=== PATIENT | female | born 1950 | race Caucasian/White ===

== ENCOUNTER 2017-11-24 01:35 | Emergency (ER) | payer MEDICARE, OTHER, SELFPAY ==
[2017-11-24 01:36] VITALS: BP 208/95; PULSE 85; RESP 16; TEMP 36.5; O2SAT 99; BMI 30.5
--- NOTE | 2017-11-24 01:45 | RAD_ITS ---
STUDY: X-RAY CHEST REASON FOR EXAM: Female, 67 years old. Cough. TECHNIQUE: PA and lateral views of the chest. COMPARISON: Prior comparison studies are not available for review at this time. FINDINGS: The lungs are clear and expanded. There is no demonstrated pleural abnormality. Normal size heart. Normal mediastinum and ronni. Normal visualized pulmonary arteries. There is mild atherosclerotic tortuosity of the aortic arch and descending thoracic aorta. There are mild degenerative changes of the visualized thoracic spine. There is questionable small calcification lateral to the left humeral head which may reflect mild calcific tendinitis. There is no demonstrated abnormality of the visualized soft tissue structures of the upper abdomen. RAD/Chest PA and Lateral IMPRESSION: No active pulmonary disease. Electronically Signed: Ivan Clarke MD at 2:05 EDT Tel , Service support ,
[2017-11-24 02:13] VITALS: O2SAT 99
--- NOTE | 2017-11-24 02:22 | DCINST.ED_ITS ---
ED Disposition - Plan for ED Patient: Chief Complaint: Cold Sx Instructions: ED Upper Resp Infec No Abx Tx Referrals: Bassam Johnson DO [Primary Care Provider] -
[2017-11-24 02:23] VITALS: BP 202/80; PULSE 65; RESP 16; O2SAT 97
--- NOTE | 2017-11-24 02:24 | ED.VISSUMM ---
- ER Visit Summary Date of Service: 11/24/17 Chief Complaint: Cough History of Present Illness: The patient is a 67 F presenting with cough. She states this has been ongoing for the past week. She has a nonproductive cough. She denies chest pain or shortness of breath. Denies fever. She states she has had similar symptoms in the past with bronchitis. She also has seasonal allergies. She is not a smoker. She denies other complaints. Physical Examination: Vitals are stable. Patient is afebrile. Alert no acute distress. HEENT exam is unremarkable. Pharynx normal, uvula midline Neck is supple. Lungs are clear and equal bilaterally. Heart is regular rate and rhythm. Abdomen is soft nontender nondistended. Extremities are unremarkable. No edema Skin is warm and dry. No focal neurologic deficit. Remainder of exam is unremarkable. Emergency Department Course and Treatment: Chest x-ray shows no acute process. Ambulatory pulse ox is 99% on room air. Patient declined cough medicine as she states her cough drops are helping. She is advised to follow-up with her primary care physician. Advised return to ED for any worsening complaints. Disposition: Discharge home Impression: Bronchitis This note was generated with [employer] dictation software. It may contain incorrect words, spelling, and punctuation that were not noted in review of the chart prior to signing ED Disposition - Plan for ED Patient: Chief Complaint: Cold Sx Instructions: ED Upper Resp Infec No Abx Tx Referrals: Bassam Johnson DO [Primary Care Provider] -
== END 2017-11-24 02:28 | disposition home or self-care (01) ==
PROVIDERS: Emergency Provider Emergency Medicine; Family Provider Family Medicine; PCP Family Medicine
DX: J40 Bronchitis, not specified as acute or chronic (principal); I10 Essential (primary) hypertension
CPT/HCPCS: 71046; 99282

== ENCOUNTER 2018-01-16 21:31 | Emergency (ER) | payer MEDICARE, OTHER, SELFPAY ==
[2018-01-16 21:32] VITALS: BP 171/93; PULSE 92; RESP 16; TEMP 36.6; O2SAT 95; BMI 29.1
[2018-01-16 22:22] LABS: Erythrocyte Sedimentation Rate 22 mm/hr (0-30)
--- NOTE | 2018-01-16 22:51 | ED.DCSUM_ITS ---
- ER Visit Summary Date of Service: 01/16/18 Chief Complaint: Left periorbital tightness and discomfort described as sharp. History of Present Illness: The patient is a 67 F who presents with sharp tight sensation lateral left orbit left temporal region left forehead into the hairline started several hours prior to presentation. She denies any double vision, blurred vision or loss of vision. There is no history of glaucoma. She denies history of diabetes. There is no history of trauma. She denies trouble with speech or swallowing. She denies any paresthesia, anesthesia motor weakness in the upper lower extremities. She denies problems with walking or balance. Physical Examination: Vital signs are marked for slight elevation blood pressure 171/93. She appears anxious. Pupils equal round reactive paradoxic muscle intact. Sclerae anicteric. Conjunctive is not injected. There is no pain with eye movement. Funduscopic exam reveals normal cup-to-disc ratio no papilledema. There is no evidence of a preseptal cellulitis. There is no skin lesions to suggest herpes varicella-zoster. Nares patent no discharge. There is no true tenderness over the temporal artery she complains of vague discomfort when I palpate the area. Neck is supple. Patient is alert and oriented ?3. Motor is 5 over 5. Sensory is intact. DTRs are symmetric with no clonus or Babinski sign. Cranial 2 through 12 are intact. Cerebellar testing is normal. Test Results: ESR is 22, which is normal Emergency Department Course and Treatment: Since patient complains of vague discomfort and reports discomfort in the left sikh area will obtain a's ESR. Visual acuity was assessed and is 20/25 right 2030 left and 20/20 both. Treatment Plan: Since sed rate is normal visual acuity is unremarkable will discharge to home follow-up with her primary care physician Disposition: Discharged to home Impression: Left-sided facial pain unknown etiology This note was generated with [employer] dictation software. It may contain incorrect words, spelling, and punctuation that were not noted in review of the chart prior to signing ED Disposition - Plan for ED Patient: Disposition: Home or Assisted Living Chief Complaint: Other, Pain/Inj Instructions: ED Acute Pain [facility] Referrals: Bassam Johnson DO [Primary Care Provider] - 3-5 Days if not improving Additional Instructions: If there is any change in your vision, return to the emergency department immediately.
[2018-01-16 23:08] VITALS: BP 131/76; PULSE 83; RESP 20; O2SAT 98
--- NOTE | 2018-01-16 23:09 | ED.RN ---
THIS NURSE REVIEWED D/C INSTRUCTIONS WITH PT. PT VERBALIZED UNDERSTANDING OF INSTRUCTIONS. PT DENIES FURTHER NEEDS OR QUESTIONS AT THIS TIME. PT AMBULATES FROM ROOM ON OWN WITHOUT ASSISTANCE FROM STAFF
== END 2018-01-16 23:10 | disposition home or self-care (01) ==
PROVIDERS: Emergency Provider Emergency Medicine; Family Provider Family Medicine; PCP Family Medicine
DX: R51 Headache (principal)
CPT/HCPCS: 85652; 99283

== ENCOUNTER → 2019-04-29 | Outpatient (CLI) | payer MEDICARE, OTHER, SELFPAY ==
--- NOTE | 2019-04-29 13:31 | US_ITS ---
STUDY: RENAL ULTRASOUND - COMPLETE REASON FOR EXAM: Female, 68 years old. Pelvic pain. TECHNIQUE: Ultrasound evaluation of the kidneys was performed with real-time and static benavidez-scale imaging. COMPARISON: None. FINDINGS: RIGHT KIDNEY: Normal location of the right kidney, which is normal in size. The right kidney measures 10.9 x 4.1 x 5.3 cm. There is a normal cortex of the right kidney. The renal cortex measures 1.8 cm. There is no right renal mass or cyst. There are no right renal calculi. There is minor pelvocaliectasis that did not change after voiding. DISTAL RIGHT URETER: There is non-visualization of the distal right ureter. There is no demonstrated right ureterovesical junction calculus. There is a visualized right ureteral jet. LEFT KIDNEY: Normal location of the left kidney, which is normal in size. The left kidney measures 9.9 x 4.0 x 4.8 cm. There is a normal cortex of the left kidney. The renal cortex measures 1.4 cm. There is a 2 x 2.5 x 2.1 cm cortical cyst at the posterior lower pole. There are no left renal calculi. There is no left hydronephrosis. DISTAL LEFT URETER: There is non-visualization of the distal left ureter. There is no demonstrated left ureterovesical junction calculus. There is a visualized left ureteral jet. BLADDER: The distended urinary bladder has a volume of 157 ml. The empty urinary bladder has a volume of 8.3 ml. There is a normal 20 mm wall thickness of the distended urinary bladder. There is no demonstrated mass within the urinary bladder. There are no demonstrated bladder calculi. US/Kidney and Bladder IMPRESSION: 1. Minor right pelvocaliectasis. This did not change after voiding, but the possible source and level of low-grade partial obstruction is not demonstrated by this study. 2. 2.5 cm cortical cyst at the posterior lower pole of the left kidney. No left hydronephrosis. 3. Unremarkable urinary bladder. Electronically Signed: Nato Reynolds MD at 20:52 EDT , Service support ,
== END | disposition home or self-care (01) ==
LOC: US 13:30
PROVIDERS: Family Provider Family Medicine; PCP Family Medicine; Referring Provider Urology; Visit Provider Urology
DX: R10.2 Pelvic and perineal pain (principal)
CPT/HCPCS: 76770

== ENCOUNTER → 2019-05-15 13:10 | Outpatient (CLI) | payer MEDICARE, OTHER, SELFPAY ==
--- NOTE | 2019-05-15 13:14 | CT_ITS ---
STUDY: CT ABDOMEN AND PELVIS WITH AND WITHOUT CONTRAST REASON FOR EXAM: Female, 68 years old. Right-sided hydronephrosis. RADIATION DOSAGE (If Supplied By Facility): CTDIvol = ( 17.68 ) mGy, DLP = ( 2792.18 ) mGycm TECHNIQUE: Transaxial images were obtained from the dome of the diaphragm to the symphysis pubis without oral contrast. IV/Oral Isovue 370 100 was administered. Sagittal and coronal images were reconstructed. Individualized dose optimization techniques were used for this CT. COMPARISON: None. FINDINGS: The visualized lung bases are unremarkable. The visualized portions of the heart are within normal limits. Normal liver. At least one stone visualized within the gallbladder measuring 0.5 cm versus multiple tiny stones. Otherwise normal gallbladder and extrahepatic biliary system. Normal spleen. Normal pancreas. Normal bilateral adrenal glands. Normal right kidney. Annual low-attenuation structure seen within the lower pole of the left kidney measuring 2.1 x 2.0 cm and compatible with a simple cysts. Small low-attenuation structures present throughout the remainder bilateral kidneys measuring less than 3 mm, too small to be adequately characterize and statistically consistent with cysts. Otherwise normal left kidney. Normal visualized stomach. Normal small intestine. Normal colon. The appendix is visualized and appears normal. There is diffuse atherosclerotic calcification of the abdominal aorta, without a demonstrated aneurysm. Normal inferior vena cava. Normal retroperitoneum. Normal urinary bladder. The uterus is anteverted and atrophic. There is a left ovarian cystic structure measuring 2.6 x 2.5 cm. Remainder of the pelvis structures are unremarkable. There is a small fat-containing umbilical hernia. There are diffuse degenerative changes of the visualized lumbar spine. CT/CT Abd/Pelvis W/WO Contrast IMPRESSION: No distinct intratesticular hydronephrosis. Bilateral renal cyst as described above. Left-sided ovarian cyst measuring 2.6 cm in maximum dimension, remainder of the CT examination unremarkable. Electronically Signed: Dyana Suarez MD at 3:08 EST , Service support ,
[2019-05-15 13:31] LABS: CREATININE FINGERSTICK 0.7 mg/dL (0.55-1.02); EGFR FINGERSTICK > 60.0000 mL/min (>60)
== END ==
PROVIDERS: Family Provider Family Medicine; PCP Family Medicine; Referring Provider Urology; Visit Provider Urology
DX: R93.49 Abnormal radiologic findings on diagnostic imaging of other urinary organs (principal); N13.2 Hydronephrosis with renal and ureteral calculous obstruction
CPT/HCPCS: 74178; Q9967

== ENCOUNTER 2019-09-01 03:25 | Observation (INO) | payer MEDICARE, OTHER, SELFPAY ==
[2019-09-01] VITALS (9 sets, daily range): BP systolic 137–219; BP diastolic 66–151; PULSE 58–77; RESP 16–22; TEMP 36.4–36.8; O2SAT 95–99; BMI 28.3; BMI 28.8
--- NOTE | 2019-09-01 03:30 | ED.RN ---
quick mini neuro exam negative at this time
--- NOTE | 2019-09-01 04:04 | EKG12_ITS ---
Test Reason : HYPERTENSON Blood Pressure : / mmHG Vent. Rate : 059 BPM Atrial Rate : 059 BPM P-R Int : 150 ms QRS Dur : 092 ms QT Int : 454 ms P-R-T Axes : 043 -21 -07 degrees QTc Int : 449 ms Sinus bradycardia Voltage criteria for left ventricular hypertrophy Abnormal ECG Confirmed by CEM KATHLEEN, ÁLVARO ([id number]), scientific publications editor CHRISTY TOVAR ([id number]) on 09/02/2019 10:17:30 AM Referred By: ROXIE Confirmed By:ÁLVARO PRIEST MD
--- NOTE | 2019-09-01 04:04 | ED.DCSUM_ITS ---
History of Present Illness Chief Complaint: Hypertension Informant: Patient Onset: Today Narrative: Patient is a 69-year-old female with history of bronchitis, frequent sinus infections, hypertension and anxiety presenting after an episode of presyncope. She woke up to use the restroom around 2 AM. When she stood up to get off the toilet after urinating she started to feel lightheaded like she might pass out. She states after that she just was not feeling right. She then started to have tingling in her bilateral lower arms from the elbows down. She not have any other neurologic symptoms such as slurred speech, vision changes, weakness or unsteadiness. She did note while this is happening she did feel little short of breath. She denies any associated chest pain, nausea, vomiting or abdominal pain. 4 days ago she was started on a Medrol Dosepak that was called in by her PCP for concern of recurrent upper respiratory infection. Patient did check her blood pressure at home and it was elevated. She said to come to the emergency room to be evaluated further. She notes that she takes triamterene in the morning every day and that is her only blood pressure medication. She denies any other complaints at this time. Past Medical History - Allergies and Home Meds Allergies/Adverse Reactions: Allergies oxycodone [From Percocet] Adverse Reaction (Verified 09/01/19 03:26) DIZZY,LIGHTHEADNESS Past Medical History: - - Hypertension, chronic sinusitis, anxiety Surgical History: noncontributory Lives: Spouse/ Significant Other Smoking Status: Never smoker Alcohol: None Drugs: None - Family History Maternal Family History: Reports: Hypertension Paternal Family History: Reports: Heart Disease Review of Systems General: Reports: - - Lightheaded. Denies: Chills, Fever, Sweats Eyes: Denies: Visual changes - bilaterally, Diplopia ENT: Denies: Rhinorrhea, Sore throat Cardiovascular: Denies: Chest pain, Palpitations Respiratory: Reports: Dyspnea. Denies: Cough, Dyspnea on exertion Gastrointestinal: Denies: Abdominal pain, Nausea, Vomiting, Diarrhea, Melena, Hematochezia Genitourinary: Denies: Dysuria, Hematuria, Frequency Musculoskeletal: Denies: Back pain, Extremity Pain Skin: Denies: Rash, Wounds Neurological: Reports: Parasthesia - Bilateral arms/hands. Denies: Headache, Weakness, Numbness Psych: Reports: Anxiety Physical Exam Vital Signs/Narrative: Vital Signs Temp Pulse Resp BP Pulse Ox 09/01/19 03:26 97.7 F L 77 22 H 217/94 H 99 Inital Vital Signs reviewed: Yes General: Well nourished, Well developed, No Acute Distress Head: Normocephalic, Atraumatic Eyes: Perrl, EOMI ENT: Moist mucous membranes, No rhinorrhea, TM's clear. Negative for: Nasal congestion Neck: Supple, Nontender, No JVD Cardiovascular: Regular rate, Regular rhythm, No murmurs, - - 2+ bilateral radial and DP pulses Respiratory: No distress, CTA bilaterally, Chest nontender Abdomen: Soft, Nontender, Nondistended, Normal bowel sounds. Negative for: Guarding, Rebound tenderness Back: Nontender, Normal Inspection Extremities: Nontender, No edema Skin: Normal color, No rash Neurological: Alert, Oriented x3, Cranial nerves II-XII grossly intact, Normal Strength, Normal Sensation Psychological: Normal affect, Normal Mood, - - anxious Diagnostic/Tx/Re-eval Chest X-Ray - ED: 1 View, Read by ED Physician, Read by Radiologist, No Acute Disease Clinical Impression(s) from Imaging Studies Chest X-Ray 09/01/19 04:40 IMPRESSION: No evidence for acute cardiopulmonary pathology. Electronically Signed: Slick Huggins MD at 5:39 EST , Service support , Laboratory Data 09/01/19 09/01/19 09/01/19 04:15 04:15 05:55 WBC 7.3 RBC 4.37 Hgb 13.4 Hct 40.4 MCV 92.4 MCH 30.7 MCHC 33.2 RDW Std Deviation 46.4 H RDW Coeff of Clay 13.9 Plt Count 377 MPV 8.8 Immature Gran % (Auto) 1.000 H Neut % (Auto) 76.8 H Lymph % (Auto) 16.3 L Travis % (Auto) 4.0 Eos % (Auto) 1.4 Baso % (Auto) 0.5 Absolute Neuts (auto) 5.6 Absolute Lymphs (auto) 1.19 Nucleated RBC % 0 Sodium 138 Potassium 3.9 Chloride 103 Carbon Dioxide 25.0 Anion Gap 10 BUN 25 H Creatinine 1.33 H Estim Creat Clear Calc 29.70 Est GFR (MDRD) Af Amer 51 L Est GFR (MDRD) Non-Af 42 L BUN/Creatinine Ratio 18.8 Glucose 148 H Calcium 9.1 Troponin I < 0.015 Urine Color Yellow Urine Clarity Clear Urine pH 7.0 Ur Specific [place] 1.005 Urine Protein Negative Urine Glucose (UA) Normal Urine Ketones Negative Urine Occult Blood Negative Urine Nitrite Negative Urine Bilirubin Negative Urine Urobilinogen Normal Ur Leukocyte Esterase Negative Urine RBC 0 SEEN Urine WBC 0 SEEN Ur Squamous Epith Cells 0-5 SEEN Urine Bacteria 0 SEEN Urine Mucus 0 SEEN - Rhythm Strip Rhythm Strip: Sinus Rhythm Rate: 59 Ectopy: None - EKG Initial EKG Interpretation: Sinus Rhythm, - - Sinus bradycardia rate of 59 Left axis deviation Voltage criteria for LVH Nonspecific T wave inversion in lead III and flattening of the T wave in aVF - Medical Decision Making Patient is evaluated for what sounds like a presyncopal episode when she was getting up from using the restroom tonight. She is significantly hypertensive and has paresthesias from her elbows down bilaterally. She has a normal neurologic exam. This does not sound like a stroke. Patient's work-up including a CBC, BMP, troponin, EKG and chest x-ray are remarkable for an elevation of her creatinine. In May patient's creatinine was 0.7. It is now 1.33. Patient's orthostatics are negative however she is continually very hypertensive in the emergency room. Concern is that patient might be having significant hypertension that is causing an NUNU. Patient is given 10 mg of IV labetalol emergency room. She will be admitted for further blood pressure management and monitoring of her creatinine. Patient is agreeable this plan. ED Disposition - Plan for ED Patient: Disposition: Acute Care [facility] Diagnosis: Elevated blood pressure reading, NUNU (acute kidney injury)
[2019-09-01 04:33] LABS: Absolute Lymphocyte Count 1.19 X10^3/uL (0.83-4.51); Absolute Neutrophil Count 5.6 X10^3/uL (2.0-7.7); Basophil# 0.04 X10^3/uL; Basophil% 0.5 % (0-1); Eosinophils% 1.4 % (0-5); Hematocrit 40.4 % (37-47); Hemoglobin 13.4 g/dL (12.0-15.0); Lymphocyte # 1.19 X10^3/ul (4.0); Lymphocyte % 16.3 % (19-41); Mean Corp Hgb Conc 33.2 g/dL (32-36); Mean Corpuscular Hgb 30.7 pg (27.0-32.0); Mean Corpuscular Volume 92.4 fL (81-99); Mean Platelet Vol. 8.8 fl (6.2-12.0); Monocyte# 0.29 X10^3/uL; NRBC Flagged by Analyzer 0 % (0-5); Neutrophil % 76.8 % (47-70); Platelet Count 377 K/mm3 (150-450); RBC Distribution Width CV 13.9 % (11.6-14.6); RBC Distribution Width SD 46.4 fl (35.1-43.9); Red Blood Count 4.37 M/mm3 (4.2-5.4); White Blood Count 7.3 K/mm3 (4.4-11.0)
--- NOTE | 2019-09-01 04:40 | RAD_ITS ---
STUDY: X-RAY CHEST REASON FOR EXAM: Female, 69 years old. SOB, COUGH TECHNIQUE: Frontal and lateral views of the chest. COMPARISON: 11/24/2017. FINDINGS: The lungs are clear and expanded. There is no demonstrated pleural abnormality. Normal size heart. Normal mediastinum and ronni. Normal visualized pulmonary arteries. Normal visualized aortic arch and descending thoracic aorta. There are multilevel degenerative changes of the visualized thoracic spine. Normal visualized ribs, clavicles, and shoulders. There is no demonstrated abnormality of the visualized soft tissue structures of the upper abdomen. RAD/Chest PA and Lateral IMPRESSION: No evidence for acute cardiopulmonary pathology. Electronically Signed: Slick Huggins MD at 5:39 EST , Service support ,
[2019-09-01 05:14] LABS: Anion Gap 10 (5-15); BUN 25 mg/dL (7-18); BUN/Creat Ratio 18.8 RATIO (10-20); Calcium,Total 9.1 mg/dL (8.5-10.1); Chloride 103 mmol/L (98-107); Creatinine, Serum 1.33 mg/dL (0.55-1.02); EST Glomerular Filtration Rate 42 mL/min (>60); Est Glom Filt Rate - Afr Amer 51 mL/min (>60); Glucose 148 mg/dL (74-106); Potassium 3.9 mmol/L (3.5-5.1); Sodium Level 138 mmol/L (136-145)
[2019-09-01 06:04] LABS: Bacteria 0 SEEN /hpf (None Seen); Mucous, Urine 0 SEEN /hpf (<or=2+); Red Blood Cells-Urine 0 SEEN /hpf (0-5); White Blood Cells 0 SEEN /hpf (0-5)
[2019-09-01 06:08] LABS: Color, Urine Yellow (Yellow); Glucose, Dipstick Normal (Normal); Ketone-Dipstick Negative (Negative); Leukocyte Esterase-Dipstick Negative /ul (Negative); Nitrite-Dipstick Negative (Negative); Occult Blood-Urine Negative /ul (Negative); Protein-Dipstick Negative (Negative); Specific Gravity, Urine 1.005 (1.002-1.030); Urine Bilirubin Dipstick Negative (Negative); Urine Clarity Clear (Clear); Urine Urobilinogen Normal (Normal)
[2019-09-01 06:19] LABS: Squamous Epithelial Cells - UA 0-5 SEEN /hpf (5-10)
--- NOTE | 2019-09-01 07:21 | NURSING ---
PCU OBS HTN,NUNU EDILIA
--- NOTE | 2019-09-01 07:51 | HP.PCM_ITS ---
Problem List (1) Paresthesia of arm Status: Acute (2) Elevated blood pressure reading Status: Acute History of Present Illness Date of Admission: 09/01/19 Chief Complaint: Elevated blood pressure, paresthesias of the arms The patient is a 69 year old F who was seen in the emergency room at [facility] with a chief complaint of elevated blood pressure and tingling in her forearms that she noticed early this morning. Patient denies any speech difficulty, visual disturbances, or focal motor weakness. Patient does have a history of hypertension, she states her blood pressure readings recently were borderline, she states that she gets readings in the 140s systolic at home. Patient only takes Maxide for blood pressure, she was recently placed on a Medrol Dosepak for sinusitis. Work-up in the emergency room included labs which showed a slightly elevated creatinine, blood sugar was elevated at 148, CBC was unremarkable. Patient had an EKG which showed normal sinus rhythm without evidence of ischemic changes. There were indications of LVH noted on the EKG. Patient will be placed on observation status for hypertensive urgency, I have no etiology for the tingling in her arms although the patient does to admit to having anxiety. Patient was given labetalol in the emergency room, I will start her on lisinopril and Norvasc when she reaches PCU, I told her it may be possible that she could be discharged today if her blood pressure was under better control this afternoon. I feel that part of the patient's creatinine elevation is due to her taking a diuretic on a chronic basis for her blood pressure. I do not feel the patient needs any fluids at this time, when she is discharged I will take her off her diuretic. Past Medical History Allergies oxycodone [From Percocet] Adverse Reaction (Verified 09/01/19 03:26) DIZZY,LIGHTHEADNESS Home Medications: Ambulatory Orders Medication Instructions Recorded Ascorbic Acid [Vitamin C] 500 mg PO DAILY 01/24/17 Aspirin E.C. [Ecotrin] 81 mg PO DAILY@0800 01/24/17 Calcium Carbonate [Calcium] 1,200 mg PO DAILY 01/24/17 Cholecalciferol (Vitamin D3) 1,000 unit PO DAILY 01/24/17 [Vitamin D3] Cinnamon Bark [Cinnamon] 1,000 mg PO BID 01/24/17 Flaxseed Oil 1,000 mg PO BID 01/24/17 Fluticasone 0.05% [Flonase Nasal 1 spray NASAL DAILY 01/24/17 [place]] Lorazepam [Ativan] 0.5 mg PO DAILY PRN PRN 01/24/17 Magnesium Oxide [Magnesium] 400 mg PO DAILY 01/24/17 Methylsulfonylmethane [MSM] 1,000 mg PO DAILY 01/24/17 Multivit with Calcium,Iron,Min 1 each PO DAILY 01/24/17 [Multiple Vitamins For Women] Niacin 500 mg PO DAILY 01/24/17 [place]-3 Fatty Acids/Fish Oil 1 each PO BID 01/24/17 [[place]-3 Fish Oil 1,000 mg Sfgl] Potassium (Otc) [Potassium Otc] 99 mg PO DAILY 01/24/17 Red Yeast Rice 600 mg PO BID 01/24/17 Selenium 200 mcg PO MOWEFR 01/24/17 Triamterene 75MG/Hctz 50MG 0.5 tablet PO DAILY 01/24/17 [Maxzide] Ubidecarenone/Vitamin E Mixed 1 each PO DAILY 01/24/17 [Qvw04-Fjh E 200 mg-20 Unit Sfg] Vitamin A 10,000 unit PO MO 01/24/17 Vitamin B Complex [Balanced B-50] 1 each PO MOWEFR 01/24/17 Vitamin E 400 unit PO MOWEFR 01/24/17 Loratadine [Claritin] 10 mg PO DAILY 09/01/19 Prednisone 15 mg PO DAILY 09/01/19 Surgical History: cataract, - - Bilateral carpal tunnel Psychiatric History: Anxiety 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 Lives: Spouse/ Significant Other Smoking Status: Never smoker Tobacco Use: Non-smoker Alcohol: None Drugs: None - *Family History Maternal History Items: Hypertension Paternal History Items: Heart Disease Review of Systems Constitutional: Denies: Anorexia, Chills, Fever, Night Sweats, Malaise, Weakness, Weight Change, Fatigue Eyes: Denies: Cataracts, Conjunctivae Inflammation, Double vision, Drainage HEENT: Denies: Difficulty Hearing, Difficulty Swallowing, Dysphasia, Ear Pain, Eye Pain, Hearing Changes, Nasal bleeding, Nasal Congestion Cardiovascular: Denies: Chest Pain, Claudication, Chest Pressure, Chest Tightness, Edema, Heaviness, Palpitations Respiratory: Denies: Cough, Hemoptysis, Pleuritic Pain, Shortness of Breath, Shortness of breath at rest, Shortness of breath upon exertion Gastrointestinal: Denies: Abdominal Pain, Constipation, Diarrhea, Hematemesis, Hematochezia, Nausea, Melena, Vomiting Genitourinary: Denies: Dysuria, Frequency, Hematuria, Hesitancy, Urgency Gynecological: Denies: Breast symptoms Musculoskeletal: Denies: Back Pain, Foot Pain, Hand Pain, Joint Pain, Joint stiffness, Joint swelling, Joint Tenderness, Leg Pain Skin: Denies: Dryness, Pruritis, Rash Neurological: Reports: Tingling - Tingling in her forearms which started this morning. Denies: Balance problems, Blurred vision, Double vision, Slurred speech, Difficulty swallowing, Focal weakness, Headaches, Incoordination, Numbness Psychiatric: Denies: Anxiety, Depression, Homicidal Ideations, Suicidal Ideations Endocrine: Denies: Change in Body Habitus, Heat/ Cold Intolerance, Polydipsia, Polyuria Hematologic/ Lymphatic: Denies: Adenopathy, Anemia, Easy Bruising, Easy Bleeding, Petechiae, Purpura VTE Information - Inpt Only VTE Present on Admission: No VTE Mechan Device Prophylaxis: None VTE Pharm Prophylaxis ordered?: No Reason prophylaxis not ordered:: Treatment Not Indicated Patient Problems: Active and Suspected Problems Paresthesia of arm (Acute) Elevated blood pressure reading (Acute) - Physical Exam Vitals/I&O's: Vital Signs Temp Pulse Resp BP Pulse Ox 97.7 F L 64 16 209/82 H 96 09/01/19 03:26 09/01/19 07:48 09/01/19 07:48 09/01/19 07:48 09/01/19 07:48 Oxygen Delivery Method Room Air Weight: 68.039 kg Body Mass Index (BMI) 28.3 General: Alert, Oriented x3, Cooperative, No apparent distress, Well developed, Well nourished HEENT: Atraumatic, PERRLA, EOMI, Normocephalic Oral: Moist Mucosa Neck: Supple, No JVD, Negative Carotid Bruits, Trachea Midline, Thyroid Normal Size and Texture Lungs: Clear to auscultation, Normal air movement, No rhonchi, No wheeze, No rales Cardiovascular: Regular rate, Regular Rhythm, Normal S1, Normal S2, No murmurs, PMI Normal, No rub noted, No Gallop Abdomen: Bowel Sounds Present, Soft, Non Tender, Non-Distended Extremities: No clubbing, No cyanosis, No edema, Capillary Refill Less than 3 Seconds Skin: No rashes, No breakdown Musculoskeletal: No Tenderness to Palpation of Joints or Extremities, No Muscle Wasting Neurological: Cranial nerves II-XII grossly intact, Neuro grossly intact, Motor Exam 5/5 strength throughout, Muscle tone normal, Sensory exam intact to light touch and pain, Coordination normal Psych/Mental Status: Normal Affect, Appropriate, Alert and oriented to time, place, person, mood and affect Laboratory Results 09/01/19 04:15: WBC 7.3, RBC 4.37, Hgb 13.4, Hct 40.4, MCV 92.4, MCH 30.7, MCHC 33.2, RDW Std Deviation 46.4 H, RDW Coeff of Clay 13.9, Plt Count 377, MPV 8.8, Immature Gran % (Auto) 1.000 H, Neut % (Auto) 76.8 H, Lymph % (Auto) 16.3 L, [place] % (Auto) 4.0, Eos % (Auto) 1.4, Baso % (Auto) 0.5, Absolute Neuts (auto) 5.6, Absolute Lymphs (auto) 1.19, Nucleated RBC % 0 09/01/19 04:15: Sodium 138, Potassium 3.9, Chloride 103, Carbon Dioxide 25.0, Anion Gap 10, BUN 25 H, Creatinine 1.33 H, Estim Creat Clear Calc 29.70, Est GFR (MDRD) Af Amer 51 L, Est GFR (MDRD) Non-Af 42 L, BUN/Creatinine Ratio 18.8, Glucose 148 H, Calcium 9.1, Troponin I < 0.015 09/01/19 05:55: Urine Color Yellow, Urine Clarity Clear, Urine pH 7.0, Ur Specific [place] 1.005, Urine Protein Negative, Urine Glucose (UA) Normal, Urine Ketones Negative, Urine Occult Blood Negative, Urine Nitrite Negative, Urine Bilirubin Negative, Urine Urobilinogen Normal, Ur Leukocyte Esterase Negative, Urine RBC 0 SEEN, Urine WBC 0 SEEN, Ur Squamous Epith Cells 0-5 SEEN, Urine Bacteria 0 SEEN, Urine Mucus 0 SEEN Assessment/Plan All Active Problems Paresthesia of arm (Acute) Elevated blood pressure reading (Acute) #1 hypertensive urgency-patient will be placed in observation status on PCU, she will be given lisinopril and Norvasc, she received Trandate in the emergency room x1. My plan is to take her off her diuretics, she will need labs repeated this week. #2 paresthesias of the forearms-etiology unclear, observe for improvement while in the hospital, I do not think the patient needs imaging studies of the brain #3 elevated blood sugar-hemoglobin A1c was ordered #4 elevated creatinine-I do not have a baseline creatinine for the patient, I think is probably elevated due to her diuretic use. Code Visit OBSV E&M: 16260 Initial observation care L3
[2019-09-01] MEDS: amLODIPine 5 MG Tablet PO (08:49)
[2019-09-01] MEDS: Lisinopril 20 MG Tablet PO (08:49)
[2019-09-01 10:16] LABS: Hemoglobin A1c 6.4 % (4.2-6.3)
--- NOTE | 2019-09-01 14:11 | DCINST_ITS ---
- Discharge Diagnoses Current Active Problems: Current Active and Chronic Problems Paresthesia of arm (Acute) Elevated blood pressure reading (Acute) NUNU (acute kidney injury) (Acute) You will use the following diet at home:: No restrictions Your food should be the consistency of: Regular Your liquids should be the consistency of: Regular/Thin Discharge Activity: Return to Normal Activity Weight Bearing Status: Full weight bearing Allergies/Adverse Reactions: Allergies oxycodone [From Percocet] Adverse Reaction (Verified 09/01/19 03:26) DIZZY,LIGHTHEADNESS Medications to take at Discharge Ascorbic Acid [Vitamin C] 500 mg PO DAILY 01/24/17 Calcium Carbonate [Calcium] 1,200 mg PO MOWEFR 01/24/17 Cholecalciferol (Vitamin D3) [Vitamin D3] 1,000 unit PO 0800,1200 01/24/17 Cinnamon Bark [Cinnamon] 1,000 mg PO 0800,1200 01/24/17 Lorazepam [Ativan] 0.5 mg PO DAILY PRN PRN 01/24/17 Multivit with Calcium,Iron,Min [Multiple Vitamins For Women] 1 each PO DAILY 01/24/17 Red Yeast Rice 600 mg PO 0800,1200 01/24/17 Amlodipine Besylate [Norvasc] 5 mg PO DAILY #30 tab 09/01/19 Lisinopril 20 mg PO DAILY #30 tab 09/01/19 Loratadine [Claritin] 10 mg PO DAILY 09/01/19 Prednisone 5 mg PO DAILY 09/01/19 The following prescriptions were given: Lisinopril 20 mg PO DAILY #30 tab Transmission Status: Received by [facility]/pharmacy #[id number] Amlodipine Besylate [Norvasc] 5 mg PO DAILY #30 tab Transmission Status: Received by [facility]/pharmacy #[id number] Primary Care Physician: Bassam Johnson DO [Primary Care Provider] - Please follow up with your Primary Care Physician in: late this week-get your BMP rechecked Test Results: Test results from this visit will be discussed in further detail at your follow- up appointment, if applicable.
--- NOTE | 2019-09-01 16:38 | PCM.DC.SUM ---
Discharge Date and Diagnosis Date of Admission: 09/01/19 Date of Discharge: 09/01/19 - Primary Discharge Diagnosis #1 hypertensive urgency #2 paresthesias of the forearms-etiology unclear #3 elevated blood sugar-secondary to recent cortisone usage #4 elevated creatinine-secondary to diuretic usage Acute kidney injury was ruled out Hospital Course and Treatment Operations: None Procedures: None Summary of Care Provided: The patient is a 69 year old F who was seen in the emergency room at [facility] with a chief complaint of tingling in her arms which started earlier today and also elevated blood pressure-patient has a history of hypertension and took her blood pressure at home and found it to be elevated. Examination in the emergency room included an EKG which showed normal sinus rhythm without evidence of ischemia, patient's blood sugar was elevated at 217/94. Patient's labs were remarkable for a slightly elevated creatinine and blood sugar. Patient was taking a diuretic at home for her blood pressure and it was felt that the creatinine was probably elevated secondary to her diuretic usage. Her minor blood sugar elevation was probably secondary to recent prednisone usage for sinusitis. Patient was given Trandate IV in the emergency room for blood pressure and she was placed into observation on PCU for hypertensive urgency. Patient's arm paresthesias disappeared, she was given lisinopril and Norvasc for her blood pressure and her blood pressure readings came down. In the afternoon of 09/01/2019, patient was reexamined: On examination she appeared in good health and spirits. Vital signs as documented. Skin warm and dry and without overt rashes. Neck without JVD. Lungs clear. Heart exam notable for regular rhythm, normal sounds and absence of murmurs, rubs or gallops. Abdomen unremarkable and without evidence of organomegaly, masses, or abdominal aortic enlargement. Extremities nonedematous. Neuro: Cranial nerves II through XII are grossly intact, no focal motor deficits were noted, sensation to light touch and pinprick is intact. Psych: Patient is alert and oriented x3, she does not appear anxious or depressed Patient appear to be stable for discharge home on 09/01/2019. Home-going medications were reviewed and adjusted. - Physical Exam Vitals/I&O's: Vital Signs Temp Pulse Resp BP Pulse Ox 97.5 F L 58 L 18 141/75 H 97 09/01/19 14:15 09/01/19 14:15 09/01/19 14:15 09/01/19 14:15 09/01/19 14:15 Oxygen Delivery Method Room Air Weight: 69.2 kg Body Mass Index (BMI) 28.8 Intake and Output for Last 24 Hours 08/30/19 08/31/19 09/01/19 23:59 23:59 23:59 Intake Total 240 / 240 Balance 240 / 240 Laboratory Results 09/01/19 04:15: WBC 7.3, RBC 4.37, Hgb 13.4, Hct 40.4, MCV 92.4, MCH 30.7, MCHC 33.2, RDW Std Deviation 46.4 H, RDW Coeff of Clay 13.9, Plt Count 377, MPV 8.8, Immature Gran % (Auto) 1.000 H, Neut % (Auto) 76.8 H, Lymph % (Auto) 16.3 L, [place] % (Auto) 4.0, Eos % (Auto) 1.4, Baso % (Auto) 0.5, Absolute Neuts (auto) 5.6, Absolute Lymphs (auto) 1.19, Nucleated RBC % 0 09/01/19 04:15: Sodium 138, Potassium 3.9, Chloride 103, Carbon Dioxide 25.0, Anion Gap 10, BUN 25 H, Creatinine 1.33 H, Estim Creat Clear Calc 29.70, Est GFR (MDRD) Af Amer 51 L, Est GFR (MDRD) Non-Af 42 L, BUN/Creatinine Ratio 18.8, Glucose 148 H, Calcium 9.1, Troponin I < 0.015 09/01/19 04:15: Hemoglobin A1c 6.4 H 09/01/19 05:55: Urine Color Yellow, Urine Clarity Clear, Urine pH 7.0, Ur Specific [place] 1.005, Urine Protein Negative, Urine Glucose (UA) Normal, Urine Ketones Negative, Urine Occult Blood Negative, Urine Nitrite Negative, Urine Bilirubin Negative, Urine Urobilinogen Normal, Ur Leukocyte Esterase Negative, Urine RBC 0 SEEN, Urine WBC 0 SEEN, Ur Squamous Epith Cells 0-5 SEEN, Urine Bacteria 0 SEEN, Urine Mucus 0 SEEN Discharge Activity: Return to Normal Activity Weight Bearing Status: Full weight bearing Home Medications: Medications to take at Discharge Ascorbic Acid [Vitamin C] 500 mg PO DAILY 07/25/17 Calcium Carbonate [Calcium] 1,200 mg PO MOWEFR 01/24/17 Cholecalciferol (Vitamin D3) [Vitamin D3] 1,000 unit PO 0800,1200 01/24/17 Cinnamon Bark [Cinnamon] 1,000 mg PO 0800,1200 01/24/17 Lorazepam [Ativan] 0.5 mg PO DAILY PRN PRN 01/24/17 Multivit with Calcium,Iron,Min [Multiple Vitamins For Women] 1 each PO DAILY 01/24/17 Red Yeast Rice 600 mg PO 0800,1200 01/24/17 Amlodipine Besylate [Norvasc] 5 mg PO DAILY #30 tab 09/01/19 Lisinopril 20 mg PO DAILY #30 tab 09/01/19 Loratadine [Claritin] 10 mg PO DAILY 09/01/19 Prednisone 5 mg PO DAILY 09/01/19 Following Prescrptions Were Given to Patient: Lisinopril 20 mg PO DAILY #30 tab Transmission Status: Received by [facility]/pharmacy #[id number] Amlodipine Besylate [Norvasc] 5 mg PO DAILY #30 tab Transmission Status: Received by [facility]/pharmacy #[id number] Primary Care Physician: Bassam Johnson DO [Primary Care Provider] - Please follow up with your Primary Care Physician in: late this week-get your BMP rechecked Disposition: Home Minutes spent on discharge:: 30 Patient Condition:: Stable Medical Necessity - Tobacco Use Smoking Status: Never smoker Tobacco Use: Non-smoker Meaningful Use Info Meaningful Use Diagnoses (Choose all that apply): None applicable Code Visit OBSV E&M: 59383 Observ/hosp same date L3
== END 2019-09-01 14:46 | disposition home or self-care (01) ==
LOC: ED 07:55 → PCU 08:05
PROVIDERS: Admitting Provider Internal Medicine; Emergency Provider Emergency Medicine; PCP Family Medicine; Visit Provider Internal Medicine
DX: I16.0 Hypertensive urgency (principal); I10 Essential (primary) hypertension; R73.9 Hyperglycemia, unspecified; R20.2 Paresthesia of skin; R00.1 Bradycardia, unspecified; F41.9 Anxiety disorder, unspecified; Z79.899 Other long term (current) drug therapy; Z79.52 Long term (current) use of systemic steroids; Z79.82 Long term (current) use of aspirin
CPT/HCPCS: 71046; 80048; 81001; 83036; 84484; 85025; 93005; 96374; 99218; 99285; A4216; G0378

== ENCOUNTER 2020-01-27 11:55 | Emergency (ER) | payer MEDICARE, OTHER, SELFPAY ==
[2020-01-26 13:22] VITALS: BMI 28.8
[2020-01-27 11:56] VITALS: BP 168/85; PULSE 75; RESP 17; TEMP 36.9; O2SAT 98; BMI 28.3
--- NOTE | 2020-01-27 12:07 | EKG12_ITS ---
Test Reason : DIZZINESS Blood Pressure : / mmHG Vent. Rate : 060 BPM Atrial Rate : 060 BPM P-R Int : 150 ms QRS Dur : 090 ms QT Int : 416 ms P-R-T Axes : 029 -20 016 degrees QTc Int : 416 ms Normal sinus rhythm Moderate voltage criteria for LVH, may be normal variant Borderline ECG Confirmed by ANU KATHLEEN, MARIA EUGENIA ([id number]), shoe dyer NILDA BREEN ([id number]) on 01/29/2020 12:32:01 PM Referred By: VILLA Confirmed By:MARIA EUGENIA BRENNAN MD
--- NOTE | 2020-01-27 12:08 | ED.DCSUM_ITS ---
History of Present Illness Chief Complaint: Dizziness Informant: Patient Onset: Today Context: Gradual Onset Timing: Intermittent Current Severity: Mild Maximum Severity: Moderate Narrative: The patient is a 69-year-old female that presents to the emergency department dizziness. Patient has been battling shoulder impingement. She was actually seen at urgent care yesterday. She was started on Flexeril. She states she took it last night. When she woke this morning, she was feeling dizzy that she describes as lightheaded and also sensation of motion. She states that she is feeling more improved now. She was reading some of the side effects and thought it could be a drug reaction. She denies fevers or chills. She denies chest pain. She is had no syncopal episodes. She denies headache or visual change. Prior similar symptoms: No Recent Illness/Hospitalization: No Past Medical History - Allergies and Home Meds Allergies/Adverse Reactions: Allergies oxycodone [From Percocet] Adverse Reaction (Verified 01/27/20 11:55) DIZZY,LIGHTHEADNESS Primary Care Physician: Bassam Johnson DO [Primary Care Provider] - Prior records reviewed: Yes Past Medical History: - Surgical History: noncontributory Smoking Status: Never smoker - Family History Maternal Family History: Reports: Hypertension Paternal Family History: Reports: Heart Disease Review of Systems ROS: - Hypertension General: Denies: Chills, Fever, Sweats Eyes: Denies: Visual changes - bilaterally, Diplopia ENT: Denies: Rhinorrhea, Sore throat Cardiovascular: Denies: Chest pain, Palpitations Respiratory: Denies: Dyspnea, Cough, Dyspnea on exertion Gastrointestinal: Denies: Abdominal pain, Nausea, Vomiting, Diarrhea, Melena, Hematochezia Genitourinary: Denies: Dysuria, Hematuria, Frequency Musculoskeletal: Denies: Back pain, Extremity Pain Skin: Denies: Rash, Wounds Neurological: Denies: Headache, Weakness, Numbness Physical Exam Vital Signs/Narrative: Vital Signs Temp Pulse Resp BP Pulse Ox 01/27/20 11:56 98.5 F 75 17 168/85 H 98 Inital Vital Signs reviewed: Yes General: Well nourished, Well developed, No Acute Distress Head: Normocephalic, Atraumatic Eyes: Perrl, EOMI ENT: Moist mucous membranes, No rhinorrhea Neck: Supple, Nontender Cardiovascular: Regular rate, Regular rhythm, No murmurs Respiratory: No distress, CTA bilaterally, Chest nontender Abdomen: Soft, Nontender, Nondistended, Normal bowel sounds Back: Nontender, Normal Inspection Extremities: Nontender, No edema Skin: Normal color, No rash Neurological: Alert, Oriented x3, Cranial nerves II-XII grossly intact, Normal Strength, Normal Sensation Psychological: Normal affect, Normal Mood Diagnostic/Tx/Re-eval Abnormal Lab Results 01/27/20 01/27/20 12:15 12:15 WBC 4.8 RBC 3.66 L Hgb 11.8 L Hct 34.5 L MCV 94.3 MCH 32.2 H MCHC 34.2 RDW Std Deviation 42.8 RDW Coeff of Clay 12.3 Plt Count 337 MPV 8.9 Immature Gran % (Auto) 0.200 Neut % (Auto) 58.7 Lymph % (Auto) 28.2 [place] % (Auto) 9.3 Eos % (Auto) 1.9 Baso % (Auto) 1.7 H Absolute Neuts (auto) 2.8 Absolute Lymphs (auto) 1.36 Nucleated RBC % 0 Sodium 135 L Potassium 4.3 Chloride 103 Carbon Dioxide 25.0 Anion Gap 7 BUN 18 Creatinine 1.34 H Estim Creat Clear Calc 29.48 Est GFR (MDRD) Af Amer 50 L Est GFR (MDRD) Non-Af 42 L BUN/Creatinine Ratio 13.4 Glucose 97 Calcium 9.5 - Medical Decision Making The patient presents with dizziness that has since markedly improved. I do suspect that this is likely drug interaction. She has never been on Flexeril before and had taken it. She has a normal neurologic examination. Metabolic work-up was pursued and was unremarkable. The patient is feeling improved. At this point, I do feel that she is safe for discharge with outpatient follow-up and we will stop the Flexeril. Impression 1. Drug interaction ED Disposition - Plan for ED Patient: Instructions: ED Drug React Adverse Other Referrals: Bassam Johnson DO [Primary Care Provider] - Additional Instructions: Please stop taking the Flexeril.
[2020-01-27 12:35] LABS: Absolute Lymphocyte Count 1.36 X10^3/uL (0.83-4.51); Absolute Neutrophil Count 2.8 X10^3/uL (2.0-7.7); Basophil# 0.08 X10^3/uL; Basophil% 1.7 % (0-1); Eosinophil# 0.09 X10^3/uL; Eosinophils% 1.9 % (0-5); Hematocrit 34.5 % (37-47); Hemoglobin 11.8 g/dL (12.0-15.0); Lymphocyte # 1.36 X10^3/ul (4.0); Lymphocyte % 28.2 % (19-41); Mean Corp Hgb Conc 34.2 g/dL (32-36); Mean Corpuscular Hgb 32.2 pg (27.0-32.0); Mean Corpuscular Volume 94.3 fL (81-99); Mean Platelet Vol. 8.9 fl (6.2-12.0); Monocyte# 0.45 X10^3/uL; Monocyte% 9.3 % (0-10); NRBC Flagged by Analyzer 0 % (0-5); Neutrophil # 2.83 X10^3/uL (2.7-7.7); Neutrophil % 58.7 % (47-70); Platelet Count 337 K/mm3 (150-450); RBC Distribution Width CV 12.3 % (11.6-14.6); RBC Distribution Width SD 42.8 fl (35.1-43.9); Red Blood Count 3.66 M/mm3 (4.2-5.4); White Blood Count 4.8 K/mm3 (4.4-11.0)
[2020-01-27 12:40] LABS: Anion Gap 7 (5-15); BUN 18 mg/dL (7-18); BUN/Creat Ratio 13.4 RATIO (10-20); Calcium,Total 9.5 mg/dL (8.5-10.1); Chloride 103 mmol/L (98-107); Creatinine, Serum 1.34 mg/dL (0.55-1.02); EST Glomerular Filtration Rate 42 mL/min (>60); Est Glom Filt Rate - Afr Amer 50 mL/min (>60); Estimated Creatinine Clearance 29.48 ml/min; Glucose 97 mg/dL (74-106); Potassium 4.3 mmol/L (3.5-5.1); Sodium Level 135 mmol/L (136-145)
--- NOTE | 2020-01-27 13:09 | ED.RN ---
IV DC'ED, CATHETER INTACT, SMALL GAUZE DRESSING PLACED. DISCHARGE INSTRUCTIONS GIVEN TO AND REVIEWED WITH PATIENT, PATIENT DENIES QUESTIONS OR CONCERNS AND VOICES UNDERSTANDING OF DISCHARGE INSTRUCTIONS. PT AMBULATES OUT OF ROOM WITHOUT DIFFICULTY.
== END 2020-01-27 13:10 | disposition home or self-care (01) ==
LOC: ED 12:54
PROVIDERS: Emergency Provider Emergency Medicine; PCP Family Medicine
DX: R42 Dizziness and giddiness (principal); T48.1X5A Adverse effect of skeletal muscle relaxants [neuromuscular blocking agents], initial encounter; Y92.9 Unspecified place or not applicable; Z82.49 Family history of ischemic heart disease and other diseases of the circulatory system; Z88.5 Allergy status to narcotic agent; M25.819 Other specified joint disorders, unspecified shoulder
CPT/HCPCS: 80048; 85025; 93005; 99283; A4216

== ENCOUNTER → 2020-02-14 12:58 | Outpatient (CLI) | payer MEDICARE, OTHER, SELFPAY ==
[2020-02-14 12:56] VITALS: BMI 28.3
--- NOTE | 2020-02-14 13:30 | RAD_ITS ---
STUDY: X-RAY - LEFT SHOULDER REASON FOR EXAM: Female, 69 years old. PAIN TECHNIQUE: 4 view(s) of the shoulder. COMPARISON: None. FINDINGS: There are mild degenerative changes of the glenoid labrum. Normal acromioclavicular joint. Normal acromion. Normal humeral head and visualized proximal humerus. There are several small soft tissue calcifications superior to the humeral head. Normal visualized pulmonary apex. RAD/Shoulder min 2 Views IMPRESSION: Mild degenerative changes of the glenoid labrum. Several small soft tissue calcifications superior to the humeral head which may represent calcific tendinitis/bursitis. Electronically Signed: Ej Barnard MD at 16:56 EDT , Service support ,
--- NOTE | 2020-02-14 13:30 | RAD_ITS ---
STUDY: X-RAY - CERVICAL SPINE REASON FOR EXAM: Female, 69 years old. PAIN TECHNIQUE: 5 view(s) of the cervical spine were obtained. COMPARISON: None FINDINGS: Normal anterior atlantoaxial articulation. Normal odontoid process. Normal cervical lordosis. Normal vertebral bodies and endplates. Normal disc space heights. There is multi-level osseous foraminal stenosis. The soft tissue structures are unremarkable. RAD/Cerv Spine 4 or 5 Views IMPRESSION: Multilevel bilateral foraminal stenosis. There is no evidence of fracture or subluxation. Disc spacing is preserved. Electronically Signed: Ej Barnard MD at 16:54 EDT , Service support ,
== END ==
PROVIDERS: PCP Family Medicine; Referring Provider Physician Assistant; Visit Provider Physician Assistant
DX: M75.42 Impingement syndrome of left shoulder (principal); R20.2 Paresthesia of skin
CPT/HCPCS: 72050; 73030

== ENCOUNTER → 2020-02-21 07:12 | Outpatient (CLI) | payer MEDICARE, OTHER, SELFPAY ==
[2020-02-14 12:56] VITALS: BMI 28.3
--- NOTE | 2020-02-21 07:13 | MRI_ITS ---
STUDY: MRI LEFT SHOULDER REASON FOR EXAM: Left shoulder pain. TECHNIQUE: Standardized fat and water weighted pulse sequences were obtained in all 3 orthogonal planes. COMPARISON: Radiographs 02/14/2020. FINDINGS: There is supraspinatus tendinosis and a small intrasubstance partial-thickness tear of the distal anterior supraspinatus tendon open (T2 coronal image 6) measuring 0.8 cm in length. There is mild infraspinatus tendinosis (T2 coronal image 12) without discrete tendon tear. There is mild subscapularis tendinosis (proton density axial image 16) without discrete tendon tear. Normal teres minor tendon. Normal supraspinatus muscle. Normal infraspinatus muscle. Normal subscapularis muscle. Normal teres minor muscle. There is a minimal volume of fluid in the glenohumeral joint. There is a small cyst in the posterior aspect of the greater tuberosity. Normal biceps labral complex. There is tendinosis of the intracapsular long biceps tendon (T2 sagittal images 12-14). Normal labrum. Normal capsulo- ligamentous complex. There is acromioclavicular arthrosis without substantial undersurface osteophytes (T2 sagittal image 12). There is a Type II morphology (curved), with a neutral orientation. There is no subacromial-subdeltoid bursal fluid. There is mild thickening of the coracoacromial ligament (T2 sagittal image 16). Normal deltoid muscle. Normal trapezius muscle. MRI/Upper Ext Joint Only(Routine) IMPRESSION: Small intrasubstance partial-thickness tear and tendinosis of the supraspinatus tendon. Mild infraspinatus and subscapularis tendinosis. Tendinosis of the long biceps tendon. Acromioclavicular arthrosis. Mild thickening of the coracoacromial ligament. The small calcifications in the rotator cuff on the radiographs are not visualized on the MRI examination. Electronically Signed: [place] MD at 8:45 EDT Tel , Service support ,
== END ==
PROVIDERS: PCP Family Medicine; Referring Provider Physician Assistant; Visit Provider Physician Assistant
DX: M75.42 Impingement syndrome of left shoulder (principal)
CPT/HCPCS: 73221

== ENCOUNTER → 2020-07-29 15:45 | Outpatient (CLI) | payer MEDICARE, OTHER, SELFPAY ==
[2020-02-24 13:28] VITALS: BMI 28.3
--- NOTE | 2020-07-29 15:57 | MRI_ITS ---
STUDY: MR PELVIS WITH T WITHOUT CONTRAST REASON FOR EXAM: Female, 70 years old. urethral diverticulum, nocturia TECHNIQUE: Standardized fat and water weighted pulse sequences were obtained in all 3 orthogonal planes, pre-and post contrast administration. IV 13 CC DOTAREM was administered for the contrast portion of the examination. COMPARISON: None. FINDINGS: Normal urinary bladder. No obvious abnormality the urethra. Normal visualized small intestine. Normal visualized colon. There is no pelvic fluid. 3 cm oval mass of water intensity consistent with a physiologic cyst, par ovarian cyst, or cystadenoma. Follow-up ultrasound is recommended in one year. Normal visualized pelvic arteries. Normal osseous structures. Normal abdominal wall. MRI/Pelvis W/WO Contrast IMPRESSION: 1. No obvious abnormality of the urethra. 2. 3 cm physiologic cyst, par ovarian cyst, or cystadenoma the left ovary. Follow-up ultrasound is recommended in one year. Electronically Signed: Max Sotomayor MD at 9:07 EST Tel , Service support ,
== END ==
PROVIDERS: PCP Family Medicine; Referring Provider Urology; Visit Provider Urology
DX: N36.1 Urethral diverticulum (principal); R35.1 Nocturia
CPT/HCPCS: 72197; A9575

== ENCOUNTER → 2020-08-25 12:15 | Outpatient (CLI) | payer MEDICARE, OTHER, SELFPAY ==
[2020-08-25 11:25] VITALS: BMI 27.8
[2020-08-26 12:18] LABS: Cancer Antigen 125 6.5 U/mL (0.0-38.1); Carcinoembryonic Antigen 1.9 ng/mL (0.0-4.7)
== END ==
PROVIDERS: PCP Family Medicine; Referring Provider Obstetrics & Gynecology; Visit Provider Obstetrics & Gynecology
DX: N83.8 Other noninflammatory disorders of ovary, fallopian tube and broad ligament (principal); N83.202 Unspecified ovarian cyst, left side
CPT/HCPCS: 36415; 82378; 86304

== ENCOUNTER → 2020-09-04 08:17 | Outpatient (CLI) | payer MEDICARE, OTHER, SELFPAY ==
[2020-08-25 11:25] VITALS: BMI 27.8
--- NOTE | 2020-09-04 08:18 | US_ITS ---
STUDY: ULTRASOUND OF THE FEMALE PELVIS - COMPLETE REASON FOR EXAM: Female, 70 years old. Ovarian mass on mri LMP: The patient is postmenopausal. TECHNIQUE: Transabdominal and Transvaginal TECHNICAL QUALITY: Adequate. COMPARISON: None. FINDINGS: The uterus is retroverted and is in a midline position. The uterus measures 5.8 cm x 4.4 cm x 3.1 cm. Normal uterine cervix. The endometrium measures 1.4 mm in thickness, and is hyperechoic. There is no demonstrated endometrial mass. Heterogeneous appearance of the myometrium with areas of calcification in keeping with fibroid change although no focal fibroid is seen. I.U.D. - The patient does not have an I.U.D. The right ovary is non-visualized. The left ovary is visualized. The left ovary measures 3.5 cm x 3 cm x 1.8 cm. There is a 3.2 cm x 2.7 cm x 1.9 cm left ovarian There is no visualized left adnexal mass or complex lesion. There is normal arterial and normal venous vascularity. There is no fluid in the cul-de-sac. US/Pelvic (Non ) IMPRESSION: Heterogeneous appearance of the uterus in keeping with fibroid change. 3.2 cm x 2.7 cm x 1.9 cm left ovarian cyst. Electronically Signed: Everardo Ann MD at 11:15 EST , Service support ,
--- NOTE | 2020-09-04 08:18 | US_ITS ---
STUDY: ULTRASOUND OF THE FEMALE PELVIS - COMPLETE REASON FOR EXAM: Female, 70 years old. Ovarian mass on mri LMP: The patient is postmenopausal. TECHNIQUE: Transabdominal and Transvaginal TECHNICAL QUALITY: Adequate. COMPARISON: None. FINDINGS: The uterus is retroverted and is in a midline position. The uterus measures 5.8 cm x 4.4 cm x 3.1 cm. Normal uterine cervix. The endometrium measures 1.4 mm in thickness, and is hyperechoic. There is no demonstrated endometrial mass. Heterogeneous appearance of the myometrium with areas of calcification in keeping with fibroid change although no focal fibroid is seen. I.U.D. - The patient does not have an I.U.D. The right ovary is non-visualized. The left ovary is visualized. The left ovary measures 3.5 cm x 3 cm x 1.8 cm. There is a 3.2 cm x 2.7 cm x 1.9 cm left ovarian There is no visualized left adnexal mass or complex lesion. There is normal arterial and normal venous vascularity. There is no fluid in the cul-de-sac. US/Transvaginal Non- IMPRESSION: Heterogeneous appearance of the uterus in keeping with fibroid change. 3.2 cm x 2.7 cm x 1.9 cm left ovarian cyst. Electronically Signed: Everardo Ann MD at 11:15 EST , Service support ,
--- NOTE | 2020-09-04 08:18 | BI_ITS ---
MAMMOGRAPHY - BILATERAL SCREENING REASON FOR EXAM: Female, 70 years old. Routine annual screening examination. PERTINENT HISTORY: Non-contributory. History of prior right stereotactic breast biopsy. TECHNIQUE: Digital bilateral breast debbie (3D mammographic acquisition) in the CC and MLO projections. 2-D mediolateral oblique (MLO) and craniocaudad (CC) views of both breasts were obtained. CAD: Full Field Digital Mammography with Computer Added Detection was performed. COMPARISON: No comparison mammograms available at this time. If any prior films become available, an addendum to this report can be generated. FINDINGS: Breast Composition: The breasts are almost entirely fatty. There are no dominant masses or suspicious calcifications. A tissue clip marker from prior biopsy is seen in the slightly upper lateral portion of the right breast. Benign-appearing bilateral axillary lymph nodes. No other significant abnormalities are identified. BI/SCRN MAMM (CAD)W/DEBBIE BILAT IMPRESSION: Negative screening mammogram. Yearly followup mammogram recommended. (A) ASSESSMENT CATEGORY: BIRADS Category 2: Benign. A letter regarding these results will be sent to the patient by the facility within 30 days. Approximately 10% of breast cancers are not detected by mammography. A normal mammogram should not delay biopsy of a clinically suspicious abnormality. [id number] Electronically Signed: Everardo Ann MD at 10:32 EST , Service support ,
== END ==
PROVIDERS: PCP Family Medicine; Referring Provider Obstetrics & Gynecology; Visit Provider Obstetrics & Gynecology
DX: N83.202 Unspecified ovarian cyst, left side (principal); Z12.31 Encounter for screening mammogram for malignant neoplasm of breast
CPT/HCPCS: 76830; 76856; 77063; 77067

== ENCOUNTER 2020-09-08 21:48 | Outpatient (RCR) | payer MEDICARE, OTHER, SELFPAY ==
[2020-08-25 11:25] VITALS: BMI 27.8
[2020-09-08] MEDS: COVID-19 VACC, MRNA(PFIZER)/PF 30 MCG/0.3 ML SYRINGE IM (15:08)
[2020-09-29] MEDS: COVID-19 VACC, MRNA(PFIZER)/PF 30 MCG/0.3 ML SYRINGE IM (14:44)
== END 2020-12-08 23:59 ==
LOC: IMMUN 21:48
PROVIDERS: PCP Family Medicine; Visit Provider Family Medicine
DX: Z23 Encounter for immunization (principal)
CPT/HCPCS: 0001A; 0002A; 91300

== ENCOUNTER → 2020-10-16 13:36 | Outpatient (CLI) | payer MEDICARE, OTHER, SELFPAY ==
[2020-08-25 11:25] VITALS: BMI 27.8
--- NOTE | 2020-10-16 13:36 | US_ITS ---
STUDY: ULTRASOUND OF THE FEMALE PELVIS - COMPLETE REASON FOR EXAM: Female, 70 years old. pelvic mass -- 6-8 weeks LMP: Menopause TECHNIQUE: Transabdominal and Transvaginal TECHNICAL QUALITY: Adequate. COMPARISON: 09/04/2020 FINDINGS: The uterus is anteverted and is in a midline position. The uterus measures 5.0 x 3.9 x 3.5 cm. Normal uterine cervix. The endometrium measures 6 mm in thickness, and is hypoechoic. There is no demonstrated endometrial mass. There is no demonstrated myometrial mass. I.U.D. - The patient does not have an I.U.D. The right ovary is visualized. The right ovary measures 1.9 x 1.8 x 1.1 cm. There is no right ovarian cyst or ovarian mass. There is no visualized right adnexal mass or complex lesion. There is normal arterial and normal venous vascularity. The left ovary is visualized. The left ovary measures 3.7 x 3.7 x 2.3 cm. There is no change in the 3.2 cm oval anechoic mass with increased through transmission within the left ovary consistent with a physiologic cyst, par ovarian cyst, or cystadenoma. Follow-up ultrasound is recommended in one year to document stability. There is no visualized left adnexal mass or complex lesion. There is normal arterial and normal venous vascularity. There is no fluid in the cul-de-sac. The pre void volume of the bladder was ml. The post void volume of the bladder was ml. Polycystic ovary disease: No. US/Pelvic (Non ) IMPRESSION: Persistent 3.2 cm left ovarian physiologic cyst, par ovarian cyst, or cystadenoma. Follow-up ultrasound is recommended in one year to document stability or resolution. Electronically Signed: Max Sotomayor MD at 6:51 EDT Tel , Service support ,
--- NOTE | 2020-10-16 13:36 | US_ITS ---
STUDY: ULTRASOUND OF THE FEMALE PELVIS - COMPLETE REASON FOR EXAM: Female, 70 years old. pelvic mass -- 6-8 weeks LMP: Menopause TECHNIQUE: Transabdominal and Transvaginal TECHNICAL QUALITY: Adequate. COMPARISON: 09/04/2020 FINDINGS: The uterus is anteverted and is in a midline position. The uterus measures 5.0 x 3.9 x 3.5 cm. Normal uterine cervix. The endometrium measures 6 mm in thickness, and is hypoechoic. There is no demonstrated endometrial mass. There is no demonstrated myometrial mass. I.U.D. - The patient does not have an I.U.D. The right ovary is visualized. The right ovary measures 1.9 x 1.8 x 1.1 cm. There is no right ovarian cyst or ovarian mass. There is no visualized right adnexal mass or complex lesion. There is normal arterial and normal venous vascularity. The left ovary is visualized. The left ovary measures 3.7 x 3.7 x 2.3 cm. There is no change in the 3.2 cm oval anechoic mass with increased through transmission within the left ovary consistent with a physiologic cyst, par ovarian cyst, or cystadenoma. Follow-up ultrasound is recommended in one year to document stability. There is no visualized left adnexal mass or complex lesion. There is normal arterial and normal venous vascularity. There is no fluid in the cul-de-sac. The pre void volume of the bladder was ml. The post void volume of the bladder was ml. Polycystic ovary disease: No. US/Transvaginal Non- IMPRESSION: Persistent 3.2 cm left ovarian physiologic cyst, par ovarian cyst, or cystadenoma. Follow-up ultrasound is recommended in one year to document stability or resolution. Electronically Signed: Max Sotomayor MD at 6:51 EDT Tel , Service support ,
== END ==
PROVIDERS: PCP Family Medicine; Referring Provider Obstetrics & Gynecology; Visit Provider Obstetrics & Gynecology
DX: N83.202 Unspecified ovarian cyst, left side (principal)
CPT/HCPCS: 76830; 76856

== ENCOUNTER 2021-08-12 16:41 | Outpatient (CLI) | payer MEDICARE, OTHER, SELFPAY | END 2021-08-12 23:59 | disposition home or self-care (01) | LOC: LABSPEC 16:47 | PROVIDERS: PCP Family Medicine; Visit Provider Nurse Practitioner Women's Health | DX: N76.0 Acute vaginitis (principal); R30.9 Painful micturition, unspecified | CPT/HCPCS: 87070; 87077; 87086; 87088; 87186; 87205 ==

== ENCOUNTER 2021-09-08 14:00 | Outpatient (CLI) | payer MEDICARE, OTHER, SELFPAY ==
--- NOTE | 2021-09-08 14:03 | BI_ITS ---
MAMMOGRAPHY - BILATERAL SCREENING REASON FOR EXAM: Female, 71 years old. Routine annual screening examination. PERTINENT HISTORY: Non-contributory. Remote right stereotactic breast biopsy. TECHNIQUE: Digital bilateral breast debbie (3D mammographic acquisition) in the CC and MLO projections. 2-D mediolateral oblique (MLO) and craniocaudad (CC) views of both breasts were obtained. CAD: Full Field Digital Mammography with Computer Added Detection was performed. COMPARISON: Comparison is made with prior study dated 09/04/2020. FINDINGS: Breast Composition: The breasts are almost entirely fatty. There are no dominant masses or suspicious calcifications. A tissue clip marker is once again seen in the slightly upper lateral aspect of the right breast No other significant abnormalities are identified. There has been no significant change since the prior study. BI/SCRN MAMM (CAD)W/DEBBIE BILAT IMPRESSION: Stable bilateral screening mammogram. Yearly follow-up mammogram recommended. (A) ASSESSMENT CATEGORY: BIRADS Category 2: Benign. A letter regarding these results will be sent to the patient by the facility within 30 days. Approximately 10% of breast cancers are not detected by mammography. A normal mammogram should not delay biopsy of a clinically suspicious abnormality. [id number] Electronically Signed: Everardo Ann MD at 14:57 EST ,
== END 2021-09-08 23:59 | disposition home or self-care (01) ==
LOC: OPBI 14:01
PROVIDERS: PCP Family Medicine; Visit Provider Obstetrics & Gynecology
DX: Z12.31 Encounter for screening mammogram for malignant neoplasm of breast (principal)
CPT/HCPCS: 77063; 77067

== ENCOUNTER 2021-10-13 13:31 | Outpatient (CLI) | payer MEDICARE, OTHER, SELFPAY ==
--- NOTE | 2021-10-13 13:34 | US_ITS ---
STUDY: ULTRASOUND OF THE FEMALE PELVIS - COMPLETE REASON FOR EXAM: Female, 71 years old. Left ovarian cyst LMP: Patient is postmenopausal. TECHNIQUE: Transabdominal and Transvaginal TECHNICAL QUALITY: Adequate. COMPARISON: Comparison is made with prior study dated 10/19/2020. FINDINGS: The uterus is retroverted and is in a midline position. The uterus measures 6.2 cm x 5.4 cm x 3.6 cm. Normal uterine cervix. The endometrium measures 1.8 mm in thickness, and is hyperechoic. There is no demonstrated endometrial mass. There is a 7 mm x 7 mm x 4 mm fibroid in the body of the uterus. There is evidence of heterogeneous appearance of the myometrium with coarse calcifications. I.U.D. - The patient does not have an I.U.D. The right ovary is visualized. The right ovary measures 2.4 cm x 2.1 cm x 1.8 cm. There is no right ovarian cyst or ovarian mass. There is no visualized right adnexal mass or complex lesion. There is normal arterial and normal venous vascularity. The left ovary is visualized. The left ovary measures 3.6 cm x 3.6 cm x 2.3 cm. There is a 3.6 x 3.1 cm x 2.1 cm cyst in the left ovary. There is no visualized left adnexal mass or complex lesion. There is normal arterial and normal venous vascularity. There is no fluid in the cul-de-sac. The pre void volume of the bladder was 138 ml. US/Pelvic (Non ) IMPRESSION: Fibroid change in the uterus. 3.6 cm x 3.1 cm x 2.1 cm cyst in the left ovary. Electronically Signed: Everardo Ann MD at 15:01 EDT ,
--- NOTE | 2021-10-13 13:34 | US_ITS ---
STUDY: ULTRASOUND OF THE FEMALE PELVIS - COMPLETE REASON FOR EXAM: Female, 71 years old. Left ovarian cyst LMP: Patient is postmenopausal. TECHNIQUE: Transabdominal and Transvaginal TECHNICAL QUALITY: Adequate. COMPARISON: Comparison is made with prior study dated 10/19/2020. FINDINGS: The uterus is retroverted and is in a midline position. The uterus measures 6.2 cm x 5.4 cm x 3.6 cm. Normal uterine cervix. The endometrium measures 1.8 mm in thickness, and is hyperechoic. There is no demonstrated endometrial mass. There is a 7 mm x 7 mm x 4 mm fibroid in the body of the uterus. There is evidence of heterogeneous appearance of the myometrium with coarse calcifications. I.U.D. - The patient does not have an I.U.D. The right ovary is visualized. The right ovary measures 2.4 cm x 2.1 cm x 1.8 cm. There is no right ovarian cyst or ovarian mass. There is no visualized right adnexal mass or complex lesion. There is normal arterial and normal venous vascularity. The left ovary is visualized. The left ovary measures 3.6 cm x 3.6 cm x 2.3 cm. There is a 3.6 x 3.1 cm x 2.1 cm cyst in the left ovary. There is no visualized left adnexal mass or complex lesion. There is normal arterial and normal venous vascularity. There is no fluid in the cul-de-sac. The pre void volume of the bladder was 138 ml. US/Transvaginal Non- IMPRESSION: Fibroid change in the uterus. 3.6 cm x 3.1 cm x 2.1 cm cyst in the left ovary. Electronically Signed: Everardo Ann MD at 15:01 EDT ,
== END 2021-10-13 23:59 | disposition home or self-care (01) ==
LOC: OPUS 13:32
PROVIDERS: PCP Family Medicine; Visit Provider Obstetrics & Gynecology
DX: N83.202 Unspecified ovarian cyst, left side (principal)
CPT/HCPCS: 76830; 76856

== ENCOUNTER 2021-11-22 22:28 | Inpatient (IN) | payer MEDICARE, OTHER, SELFPAY ==
[2021-11-22 22:29] VITALS: BP 153/81; PULSE 77; RESP 15; TEMP 36.7; O2SAT 97; BMI 26.4
[2021-11-22 22:31] VITALS: BP 153/81; PULSE 77; RESP 15; TEMP 36.7; O2SAT 97
--- NOTE | 2021-11-22 22:54 | EKG12_ITS ---
Test Reason : ABD PAIN Blood Pressure : / mmHG Vent. Rate : 057 BPM Atrial Rate : 057 BPM P-R Int : 156 ms QRS Dur : 092 ms QT Int : 428 ms P-R-T Axes : 039 -20 006 degrees QTc Int : 416 ms Sinus bradycardia Otherwise normal ECG Confirmed by CEM KATHLEEN, ÁLVARO ([id number]), film and video editor CHRISTY TOVAR ([id number]) on 11/24/2021 1:22:34 PM Referred By: PL Confirmed By:ÁLVARO PRIEST MD
--- NOTE | 2021-11-22 22:57 | EDS_ITS ---
HPI <Dr. Keyon Mayer MD - Last Filed: 11/23/21 19:02> HPI - GI History of Present Illness Chief Complaint: Abd Pain Informant: patient Narrative Narrative: Patient states that she had some epigastric pain that is now improving. She has had this once or twice before. It is normally after she eats something that does not agree with her. She was prescribed Pepcid but only takes it now and then when she feels she needs it. She did not try it yet tonight. She states she hates some knots. They were knots that are on her allowable foods to eat. A bit after eating meals at almost 1:00 in the afternoon, she started to get epigastric pain that burned up and down between her xiphoid and her navel. She inhaled some steam with thyme and marjoram mixed in and that helped. She never had nausea vomiting diarrhea. She did not have pain at the umbilicus. She never had chest pain or dyspnea. She had gone out for a walk for almost an hour and had no dyspnea or chest pain with this. She states she walks regularly and does not even have symptoms going up a hill. She has no history of heart disease. Her biggest concern is if her hernia was causing a problem. She is starting to feel better but is not 100% resolved yet. [facility] <Dr. Keyon Mayer MD - Last Filed: 11/23/21 19:02> [facility] Medical History Back pain cataract surgery (~2015) Difficulty balancing Hay fever Heart disease Hypertension Neck pain Seasonal allergies Shoulder pain Home Medications calcium carbonate 1,200 mg PO DAILY 01/24/17 [History Last Taken 11/22/21] cholecalciferol (vitamin D3) 1,000 unit PO 0800,1200 01/24/17 [History Last Taken 11/22/21] cinnamon bark 1,000 mg PO 0800,1200 01/24/17 [History Last Taken 11/22/21] lorazepam 0.5 - 1 mg PO DAILY PRN PRN 01/24/17 [History Last Taken 01/25/17 06:00] fpudsnamacqx-Fr-bcsm-minerals 1 ea PO DAILY 01/24/17 [History Last Taken 11/22/21] red yeast rice 600 mg PO 0800,1200 01/24/17 [History Last Taken 11/22/21] lisinopril 20 mg PO DAILY #30 tab 09/01/19 [Rx Last Taken 11/22/21] loratadine 10 mg PO DAILY 09/01/19 [History Last Taken 11/22/21] conjugated estrogens 0.625 mg/gram vaginal cream 0.625 mg VAGINAL MOFR 08/25/20 [History Last Taken 11/19/21] fluticasone propionate 50 mcg/actuation nasal spray,suspension 1 spray INTRANASAL DAILY 08/25/20 [History Last Taken 11/22/21] famotidine 20 mg tablet 20 mg PO DAILY PRN 08/12/21 [History Last Taken Unknown] ascorbic acid (vitamin C) 1,000 mg tablet 1 g PO DAILY 08/26/21 [History Last Taken 11/22/21] amlodipine 7.5 mg PO DAILY 11/23/21 [History Last Taken 11/22/21] Allergy/AdvReac Type Severity Reaction Status Date / Time cyclobenzaprine Allergy Mild other Verified 11/22/21 22:31 oxycodone [From Percocet] AdvReac DIZZY,LIGHT Verified 11/22/21 22:31 HEADNESS Family History Other Diabetes Heart disease Hypertension Surgical History History of carpal tunnel release of both wrists (~2016) Social History Smoking Status: Never smoker alcohol intake: never substance use type: does not use caffeine: Yes what type of physical activity do you participate in: walking frequency: 5-6 times per week seatbelt use: always do you feel safe at home: Yes additional social history: [place]- ROS <Dr. Keyon Mayer MD - Last Filed: 11/23/21 19:02> ROS ED Constitutional Constitutional ED: Denies chills or fever(s) ENT ENT ED: Denies rhinorrhea or sore throat Cardiovascular Cardiovascular: Denies chest pain or palpitations Respiratory/Chest Respiratory/Chest: Denies cough, dyspnea, dyspnea on exertion or sputum Gastrointestinal Gastrointestinal: Reports abdominal pain and vomiting; Denies constipation, diarrhea, melena or nausea Genitourinary Genitourinary ED: Denies dysuria Musculoskeletal Musculoskeletal: Denies myalgias Integumentary Denies rash Neurologic Neurologic: Denies paresthesias or weakness Endocrine Endocrinology: Denies polydipsia or polyuria Hematologic/Lymphatic Hematologic/Lymphatic: Denies easy bleeding or easy bruising Allergic/Immunologic Allergic/Immunologic ED: Denies urticaria EXAM <Dr. Keyon Mayer MD - Last Filed: 11/23/21 19:02> Physical Exam Const Vital Signs: 11/22/21 22:29 11/22/21 22:31 11/23/21 01:59 Temperature 98.1 F 98.1 F 97.7 F L Temperature Source Temporal Temporal Oral Pulse Rate 77 77 71 Pulse Strength Respiratory Rate 15 15 16 Blood Pressure 153/81 H 153/81 H 142/70 H Blood Pressure Mean 105 105 94 Blood Pressure Source Monitor Blood Pressure Position Semi-Fowlers Blood Pressure Location Right Arm Pulse Ox 97 97 97 Oxygen Delivery Method Room Air Room Air Room Air 11/23/21 08:00 11/23/21 08:39 11/23/21 10:00 Temperature 98.3 F Temperature Source Oral Pulse Rate 72 72 Pulse Strength Normal (2+) Respiratory Rate 16 Blood Pressure 94/52 L Blood Pressure Mean 66 Blood Pressure Source Monitor Blood Pressure Position Semi-Fowlers Blood Pressure Location Right Arm Pulse Ox 97 Oxygen Delivery Method Room Air Positive well nourished and well developed General Appearance ED: well developed and NAD HEENT Reports moist mucous membranes Eyes General Eye ED: Negative for pale conjunctiva or scleral icterus Neck no JVD Resp normal respiratory effort and clear to auscultation bilaterally Cardio regular rate and regular rhythm GI non-tender, non-distended and no masses GI Narrative: Patient's abdomen is actually quite benign. Normal bowel sounds. Nontender. She admits it is feeling much better. I feel no umbilical or periumbilical hernia. When I have her sit up I do get a hernia that develops. However, when she lays back down it spontaneously resolves. There is no tenderness whatsoever in that area. Auscultation: normoactive bowel sounds Palpation: soft Back/Spine no CVA tenderness Extremity General Extremety ED: Negative for tenderness Neuro Sensorium / Orientation: alert and oriented to person Psych mental status grossly normal Skin Rashes: no rashes <Dr. Elijah Pinto MD - Last Filed: 11/23/21 00:56> Physical Exam Const Vital Signs: 11/22/21 22:29 11/22/21 22:31 11/23/21 01:59 Temperature 98.1 F 98.1 F 97.7 F L Temperature Source Temporal Temporal Oral Pulse Rate 77 77 71 Pulse Strength Respiratory Rate 15 15 16 Blood Pressure 153/81 H 153/81 H 142/70 H Blood Pressure Mean 105 105 94 Blood Pressure Source Monitor Blood Pressure Position Semi-Fowlers Blood Pressure Location Right Arm Pulse Ox 97 97 97 Oxygen Delivery Method Room Air Room Air Room Air 11/23/21 08:00 11/23/21 08:39 11/23/21 10:00 Temperature 98.3 F Temperature Source Oral Pulse Rate 72 72 Pulse Strength Normal (2+) Respiratory Rate 16 Blood Pressure 94/52 L Blood Pressure Mean 66 Blood Pressure Source Monitor Blood Pressure Position Semi-Fowlers Blood Pressure Location Right Arm Pulse Ox 97 Oxygen Delivery Method Room Air MDM <Dr. Keyon Mayer MD - Last Filed: 11/23/21 19:02> MDM MDM Narrative Medical decision making narrative: Patient's blood work showed normal white count. Minimal anemia. Platelets normal. Electrolytes were overall unremarkable. She did have a slight rise of her BUN/creatinine but she has known history of mild renal disease. Troponin is negative despite many hours of symptoms. I reevaluated the patient. She states that she feels as though the pain might be actually worsening again. It is all in the epigastric area to where her umbilicus is. Exam still really does not point to a notable hernia is the likely source although this is the lower area of pain. It is not radiating to the back. She has no chest pain or dyspnea. With her pain increasing again, we will do a scan of the abdomen. I have added liver function test and lipase which are pending. I think if her scan and blood work shows no marked abnormalities she can likely go home. She does have a follow-up appointment already with her primary physician at 9 in the morning. Patient is turned over to the oncoming physician. Lab Data Attestation: I reviewed the patient's lab results. Labs: Laboratory Results - last 24 hr 11/22/21 11/22/21 11/22/21 22:44 22:44 22:44 WBC 10.4 RBC 3.63 L Hgb 11.6 L Hct 34.0 L MCV 93.7 MCH 32.0 MCHC 34.1 RDW Std Deviation 43.0 RDW Coeff of Clay 12.4 Plt Count 360 MPV 9.3 Immature Gran % (Auto) 0.900 Neut % (Auto) 66.1 Lymph % (Auto) 22.8 Karnes % (Auto) 7.1 Eos % (Auto) 2.2 Baso % (Auto) 0.9 Absolute Neuts (auto) 6.9 Absolute Lymphs (auto) 2.36 Nucleated RBC % 0 Sodium 134 L Potassium 4.2 Chloride 101 Carbon Dioxide 26.0 Anion Gap 7 BUN 23 H Creatinine 1.41 H Estim Creat Clear Calc 27.21 Est GFR (MDRD) Af Amer 47 L Est GFR (MDRD) Non-Af 39 L BUN/Creatinine Ratio 16.3 Glucose 112 H Calcium 9.2 Total Bilirubin 0.40 Direct Bilirubin 0.11 AST 20 ALT 27 Alkaline Phosphatase 62 Troponin I High Sens 18 Total Protein 7.4 Albumin 4.0 Globulin 3.4 Lipase 291 11/23/21 11/23/21 05:41 05:41 WBC 9.4 RBC 3.68 L Hgb 11.9 L Hct 34.4 L MCV 93.5 MCH 32.3 H MCHC 34.6 RDW Std Deviation 43.0 RDW Coeff of Clay 12.6 Plt Count 334 MPV 9.0 Immature Gran % (Auto) 0.300 Neut % (Auto) 74.3 H Lymph % (Auto) 15.3 L Karnes % (Auto) 7.8 Eos % (Auto) 1.6 Baso % (Auto) 0.7 Absolute Neuts (auto) 7.0 Absolute Lymphs (auto) 1.44 Nucleated RBC % 0 Sodium 136 Potassium 4.2 Chloride 103 Carbon Dioxide 26.0 Anion Gap 7 BUN 21 H Creatinine 1.34 H Estim Creat Clear Calc 28.64 Est GFR (MDRD) Af Amer 50 L Est GFR (MDRD) Non-Af 41 L BUN/Creatinine Ratio 15.7 Glucose 101 Calcium 9.3 Total Bilirubin Direct Bilirubin AST ALT Alkaline Phosphatase Troponin I High Sens Total Protein Albumin Globulin Lipase Radiography Diagnostic Testing: Clinical Impression(s) from Imaging Studies Abdomen/Pelvis CT 11/23/21 00:00 IMPRESSION: Possible small bowel obstruction with indeterminate zone of transition versus enteritis/inflammatory bowel disease . Clinical correlation recommended. If clinical symptoms do not improve, recommend 2 views of the abdomen to evaluate progression. Nonspecific bilateral simple renal cysts as described. Small stone within the gallbladder otherwise unremarkable abdominal viscera. No acute appendicitis. Electronically Signed: Dyana Suarez MD at 0:38 EDT , EKG Initial EKG: Comments: EKG done for upper abdominal pain and elderly. EKG read by me shows normal sinus rhythm with overall rate of 57. This shows minimal bradycardia. No ventricular ectopy. NV interval, QRS duration and QTc normal. No acute ST elevation or depression. <Dr. Elijah Pinto MD - Last Filed: 11/23/21 00:56> [facility] MDM Narrative Medical decision making narrative: Patient was checked out to me by the prior emergency physician. I reevaluated the patient and went over all of her lab results. CAT scans consistent with a partial small bowel obstruction. Currently her abdomen is benign. There is no strangulated or incarcerated hernia. She has a history of an umbilical hernia but currently its not even present. She has very minimal epigastric discomfort. I have already spoken the hospitalist she will be admitted. I will notify the general surgeon on-call. Lab Data Lab results narrative: CBC had a white count 10.4. H&H 11.6 and 34 consistent with prior blood counts. Electrolytes show sodium 134. Gap of 7. BUN of 23 creatinine 1.4. Liver enzymes negative. Troponin normal at 18. Lipase normal at 291. CAT scan of the abdomen pelvis with IV contrast read by the radiologist and reviewed by me consistent with an early partial small bowel obstruction. Prior to having the abdominal discomfort tonight the patient was not having any GI symptoms. Labs: Laboratory Results - last 24 hr 11/22/21 11/22/21 11/22/21 22:44 22:44 22:44 WBC 10.4 RBC 3.63 L Hgb 11.6 L Hct 34.0 L MCV 93.7 MCH 32.0 MCHC 34.1 RDW Std Deviation 43.0 RDW Coeff of Clay 12.4 Plt Count 360 MPV 9.3 Immature Gran % (Auto) 0.900 Neut % (Auto) 66.1 Lymph % (Auto) 22.8 Karnes % (Auto) 7.1 Eos % (Auto) 2.2 Baso % (Auto) 0.9 Absolute Neuts (auto) 6.9 Absolute Lymphs (auto) 2.36 Nucleated RBC % 0 Sodium 134 L Potassium 4.2 Chloride 101 Carbon Dioxide 26.0 Anion Gap 7 BUN 23 H Creatinine 1.41 H Estim Creat Clear Calc 27.21 Est GFR (MDRD) Af Amer 47 L Est GFR (MDRD) Non-Af 39 L BUN/Creatinine Ratio 16.3 Glucose 112 H Calcium 9.2 Total Bilirubin 0.40 Direct Bilirubin 0.11 AST 20 ALT 27 Alkaline Phosphatase 62 Troponin I High Sens 18 Total Protein 7.4 Albumin 4.0 Globulin 3.4 Lipase 291 11/23/21 11/23/21 05:41 05:41 WBC 9.4 RBC 3.68 L Hgb 11.9 L Hct 34.4 L MCV 93.5 MCH 32.3 H MCHC 34.6 RDW Std Deviation 43.0 RDW Coeff of Clay 12.6 Plt Count 334 MPV 9.0 Immature Gran % (Auto) 0.300 Neut % (Auto) 74.3 H Lymph % (Auto) 15.3 L Karnes % (Auto) 7.8 Eos % (Auto) 1.6 Baso % (Auto) 0.7 Absolute Neuts (auto) 7.0 Absolute Lymphs (auto) 1.44 Nucleated RBC % 0 Sodium 136 Potassium 4.2 Chloride 103 Carbon Dioxide 26.0 Anion Gap 7 BUN 21 H Creatinine 1.34 H Estim Creat Clear Calc 28.64 Est GFR (MDRD) Af Amer 50 L Est GFR (MDRD) Non-Af 41 L BUN/Creatinine Ratio 15.7 Glucose 101 Calcium 9.3 Total Bilirubin Direct Bilirubin AST ALT Alkaline Phosphatase Troponin I High Sens Total Protein Albumin Globulin Lipase Radiography Diagnostic Testing: Clinical Impression(s) from Imaging Studies Abdomen/Pelvis CT 11/23/21 00:00 IMPRESSION: Possible small bowel obstruction with indeterminate zone of transition versus enteritis/inflammatory bowel disease . Clinical correlation recommended. If clinical symptoms do not improve, recommend 2 views of the abdomen to evaluate progression. Nonspecific bilateral simple renal cysts as described. Small stone within the gallbladder otherwise unremarkable abdominal viscera. No acute appendicitis. Electronically Signed: Dyana Suarez MD at 0:38 EDT , Discharge Plan Dx/Rx/DC Orders Clinical Impression: Abdominal pain, epigastric, Hernia, umbilical, Partial obstruction of small intestine Disposition Disposition: Acute Care Hospital [facility]
[2021-11-22] MEDS: Mag Hydrox/Al Hydrox/Simeth 30 ML UDC PO (23:03)
[2021-11-22 23:27] LABS: Anion Gap 7 (5-15); BUN 23 mg/dL (7-18); BUN/Creat Ratio 16.3 RATIO (10-20); Calcium,Total 9.2 mg/dL (8.5-10.1); Chloride 101 mmol/L (98-107); Creatinine, Serum 1.41 mg/dL (0.55-1.02); EST Glomerular Filtration Rate 39 mL/min (>60); Est Glom Filt Rate - Afr Amer 47 mL/min (>60); Estimated Creatinine Clearance 27.21 ml/min; Glucose 112 mg/dL (74-106); Potassium 4.2 mmol/L (3.5-5.1); Sodium Level 134 mmol/L (136-145); Troponin-I HS 18 pg/mL (3.0-54.0)
[2021-11-22 23:35] LABS: Absolute Lymphocyte Count 2.36 X10^3/uL (0.83-4.51); Absolute Neutrophil Count 6.9 X10^3/uL (2.0-7.7); Basophil# 0.09 X10^3/uL; Basophil% 0.9 % (0-1); Eosinophil# 0.23 X10^3/uL; Eosinophils% 2.2 % (0-5); Hemoglobin 11.6 g/dL (12.0-15.0); Lymphocyte # 2.36 X10^3/ul (0.83-4.51); Lymphocyte % 22.8 % (19-41); Mean Corp Hgb Conc 34.1 g/dL (32-36); Mean Corpuscular Volume 93.7 fL (81-99); Mean Platelet Vol. 9.3 fl (6.2-12.0); Monocyte# 0.73 X10^3/uL; Monocyte% 7.1 % (0-10); NRBC Flagged by Analyzer 0 % (0-5); Neutrophil # 6.85 X10^3/uL (2.7-7.7); Neutrophil % 66.1 % (47-70); Platelet Count 360 K/mm3 (150-450); RBC Distribution Width CV 12.4 % (11.6-14.6); Red Blood Count 3.63 M/mm3 (4.2-5.4); White Blood Count 10.4 K/mm3 (4.4-11.0)
--- NOTE | 2021-11-23 | CT_ITS ---
STUDY: CT ABDOMEN AND PELVIS WITH CONTRAST REASON FOR EXAM: Female, 71 years old. abd pain RADIATION DOSAGE (If Supplied By Facility): CTDIvol = ( 11.05 ) mGy, DLP = ( 617.71 ) mGycm TECHNIQUE: Transaxial images were obtained from the dome of the diaphragm to the symphysis pubis without oral contrast. IV 100mL Isovue-300 was administered. Sagittal and coronal images were reconstructed. Individualized dose optimization techniques were used for this CT. COMPARISON: 05/15/2019. FINDINGS: Minimal right posterior dependent atelectasis otherwise normal lung bases. Annual cardiac size with coronary artery calcifications. Normal liver. Contracted gallbladder with at least one stone visualized measuring 7 mm. Otherwise unremarkable gallbladder and biliary system. Normal spleen. Normal pancreas. Normal bilateral adrenal glands. Small right upper renal pole simple cyst measuring 6.2 mm. Otherwise normal right kidney. Left mid lower renal pole simple cyst measuring 2.7 cm. Otherwise normal left kidney. Normal visualized stomach. Multiple loops of small bowel distended up to maximum diameter of 2.6-2.7 cm along the jejunal with most of the ileum decompressed raising the concern for early or partial small bowel obstruction. Due to multiple loops of distal small bowel revealing thickening of the wall such as image 54, series 2, differential diagnosis includes nonspecific enteritis versus inflammatory bowel disease. The descending colon is decompressed. The appendix is visualized and appears normal. There is diffuse atherosclerotic calcification of the abdominal aorta, without a demonstrated aneurysm. Normal inferior vena cava. Normal retroperitoneum. Normal urinary bladder. Small fat-containing umbilical hernia. There are diffuse degenerative changes of the visualized lumbar spine. Minimal anterolisthesis of L4 on L5 with no pars defect. CT/Abdomen/Pelvis W IV Cont ONLY IMPRESSION: Possible small bowel obstruction with indeterminate zone of transition versus enteritis/inflammatory bowel disease . Clinical correlation recommended. If clinical symptoms do not improve, recommend 2 views of the abdomen to evaluate progression. Nonspecific bilateral simple renal cysts as described. Small stone within the gallbladder otherwise unremarkable abdominal viscera. No acute appendicitis. Electronically Signed: Dyana Suarez MD at 0:38 EDT ,
[2021-11-23 00:13] LABS: AST(SGOT) 20 U/L (15-37); Alanine Aminotransfer ALT/SGPT 27 U/L (13-56); Alkaline Phosphatase 62 U/L (45-117); Bilirubin, Direct 0.11 mg/dL (0.00-0.30); Globulin 3.4 g/dL (2.2-4.2); Lipase 291 U/L (73-393); Protein, Total 7.4 g/dL (6.4-8.2)
--- NOTE | 2021-11-23 00:58 | PCM.HP.STD ---
HPI - General General Date of Admission: 11/23/21 HPI Narrative KATHIE PALUMBO, is a 71 F with a significant history of back pain; interstitial cystitis; heart disease; hypertension who presents to the emergency department with abdominal pain. The pain is located from her epigastrium to her umbilicus. She rated pain at 6 out of 10. The pain was constant. She described the pain as aching and pressure. Doxy made her pain better. Leaning forward worsens the pain. The pain started about 3 hours after eating nuts. The pain is nonradiating. She denies any nausea and vomiting. Her pain started few hours before presentation. And on the same day of presentation her bowels moved 3 times with 1 bowel movement after her pain started. Patient has umbilical hernia that she reduced multiple times at home and also was reduced by the ED doctor. [facility] Medical History Back pain cataract surgery (~2015) Difficulty balancing Hay fever Heart disease Hypertension Neck pain Seasonal allergies Shoulder pain Home Medications calcium carbonate 1,200 mg PO MOWEFR 01/24/17 [History Last Taken 08/30/19] cholecalciferol (vitamin D3) 1,000 unit PO 0800,1200 01/24/17 [History Last Taken 08/31/19] cinnamon bark 1,000 mg PO 0800,1200 01/24/17 [History Last Taken 08/31/19] lorazepam 0.5 mg PO DAILY PRN PRN 01/24/17 [History Last Taken 01/25/17 06:00] lclrnulapabb-Bq-tmlh-minerals 1 ea PO DAILY 01/24/17 [History Last Taken 08/31/19] red yeast rice 600 mg PO 0800,1200 01/24/17 [History Last Taken 08/31/19] lisinopril 20 mg PO DAILY #30 tab 09/01/19 [Rx Last Taken Unknown] loratadine 10 mg PO DAILY 09/01/19 [History Last Taken 08/31/19] conjugated estrogens 0.625 mg/gram vaginal cream 0.625 mg VAGINAL DAILY 08/25/20 [History Last Taken Unknown] fluticasone propionate 50 mcg/actuation nasal spray,suspension 1 spray INTRANASAL DAILY 08/25/20 [History Last Taken Unknown] famotidine 20 mg tablet 20 mg PO DAILY 08/12/21 [History Last Taken Unknown] ascorbic acid (vitamin C) 1,000 mg tablet 1 g PO Q6H 08/26/21 [History Last Taken Unknown] amlodipine 7.5 mg PO DAILY 11/23/21 [History Last Taken Unknown] Allergy/AdvReac Type Severity Reaction Status Date / Time cyclobenzaprine Allergy Mild other Verified 11/22/21 22:31 oxycodone [From Percocet] AdvReac DIZZY,LIGHT Verified 11/22/21 22:31 HEADNESS Family History Other Diabetes Heart disease Hypertension Surgical History History of carpal tunnel release of both wrists (~2017) Social History Smoking Status: Never smoker alcohol intake: never substance use type: does not use caffeine: Yes what type of physical activity do you participate in: walking frequency: 5-6 times per week seatbelt use: always do you feel safe at home: Yes additional social history: Amrita CHACKO Narrative Constitutional: Denies fever, chills, fatigue, anorexia and change in weight Eyes: Denies blurry vision, change in eye color, change in vision, discharge from eye(s), double vision, erythema, eye pain, loss of vision or other HEENT: Denies abnormal hearing, dysphagia, ear pain, epistaxis, headache(s), hearing loss, nasal congestion, nasal discharge, post nasal drip, sinus pressure, sore throat or other Cardiovascular: Denies chest pain or palpitations. Denies dyspnea on exertion, orthopnea and paroxysmal nocturnal dyspnea Respiratory/Chest: Denies cough, excessive phlegm production, shortness of breath with exertion and wheezing Gastrointestinal: Reports abdominal pain. Denies coffee ground emesis, constipation, hematemesis, hematochezia, loose stools, melena, nausea, vomiting or other Genitourinary: Denies burning urination, difficulty urinating, dysuria, hematuria, nocturia, urinary frequency, urinary hesitancy, urinary incontinence, urinary urgency or other Musculoskeletal: Reports arthralgias, back pain, joint pain. Neurologic: Denies abnormal gait, abnormal speech, confusion, disequilibrium, dizziness, focal weakness, numbness, paresthesias, seizure-like activity, seizures, syncope, tingling, tremor(s) or other Psychiatric: Denies anxiety, depression, homicidal ideation, suicidal ideation or other Endocrinology: Denies change in body appearance, cold intolerance, excessive sweating, heat intolerance, polydipsia, polyuria or other Hematologic/Lymphatic: Denies anemia, easy bleeding, easy bruising, lymphadenopathy or other Integumentary: Denies rashes Allergic/Immunologic: Denies rhinitis, hives, eczema, or other Vital Signs Vital Signs Vital Signs: 11/22/21 22:29 11/22/21 22:31 Temperature 98.1 F 98.1 F Temperature Source Temporal Temporal Pulse Rate 77 77 Respiratory Rate 15 15 Blood Pressure 153/81 H 153/81 H Blood Pressure Mean 105 105 Pulse Ox 97 97 Oxygen Delivery Method Room Air Room Air Weight Weight: 63.503 kg Body Mass Index (BMI) 26.4 Physical Exam Narrative Physical exam: General: Well-nourished, well-developed. Head: Normocephalic, atraumatic, no tenderness Eyes: Vision is grossly intact. EOMI ENT, no trauma, moist mucous membranes, no rhinorrhea Neck: Nontender, full range of motion, no spinal tenderness, deformities, step-off CVS: Regular rate and rhythm. S1-S2 present. No murmur, gallop or rub. Respiratory : clear to auscultation bilaterally, chest wall nontender, no wheezing Abdomen: Soft, nontender, nondistended, normal bowel sounds, no masses : Deferred Back: Nontender, no CVA tenderness, no midline spinal tenderness, deformities, step-offs Extremities: Nontender full range of motion, no trauma Skin: Normal color, no trauma, abrasions Neuro: Alert, oriented, cranial nerves II through XII grossly intact. Psychiatry: Normal mood. Normal affect. Not depressed. Not anxious. Results Lab / Micro Data Result Diagrams: 11/22/21 22:44 11/22/21 22:44 Labs: Laboratory Results - last 24 hr 11/22/21 22:44: WBC 10.4, RBC 3.63 L, Hgb 11.6 L, Hct 34.0 L, MCV 93.7, MCH 32.0, MCHC 34.1, RDW Std Deviation 43.0, RDW Coeff of Clay 12.4, Plt Count 360, MPV 9.3, Immature Gran % (Auto) 0.900, Neut % (Auto) 66.1, Lymph % (Auto) 22.8, [place] % (Auto) 7.1, Eos % (Auto) 2.2, Baso % (Auto) 0.9, Absolute Neuts (auto) 6.9, Absolute Lymphs (auto) 2.36, Nucleated RBC % 0 11/22/21 22:44: Sodium 134 L, Potassium 4.2, Chloride 101, Carbon Dioxide 26.0, Anion Gap 7, BUN 23 H, Creatinine 1.41 H, Estim Creat Clear Calc 27.21, Est GFR (MDRD) Af Amer 47 L, Est GFR (MDRD) Non-Af 39 L, BUN/Creatinine Ratio 16.3, Glucose 112 H, Calcium 9.2, Troponin I High Sens 18 11/22/21 22:44: Total Bilirubin 0.40, Direct Bilirubin 0.11, AST 20, ALT 27, Alkaline Phosphatase 62, Total Protein 7.4, Albumin 4.0, Globulin 3.4, Lipase 291 Radiology Impression Abdomen/Pelvis CT 11/23/21 00:00 IMPRESSION: Possible small bowel obstruction with indeterminate zone of transition versus enteritis/inflammatory bowel disease . Clinical correlation recommended. If clinical symptoms do not improve, recommend 2 views of the abdomen to evaluate progression. Nonspecific bilateral simple renal cysts as described. Small stone within the gallbladder otherwise unremarkable abdominal viscera. No acute appendicitis. Electronically Signed: Dyana Suarez MD at 0:38 EDT , Assessment & Plan Assessment/Plan (1) Partial obstruction of small intestine: PLAN: Partial small bowel Obstruction Abdomen and pelvis CT was visualized and independently interpreted and I agree with radiologist interpretation. Patient with no diarrhea, or fever. CBC reviewed showed normal white count. Unlikely enteritis or inflammatory bowel disease. Supportive treatment with IV fluids. Pain is tolerable so no pain medication ordered. Monitor. Emergency department doctor discussed the case with general surgery. General surgery consult. We will keep patient n.p.o. Trend CBC and BMP Hypertension Blood pressure is not within goal With patient n.p.o. hold home amlodipine and lisinopril. Trend blood pressure and adjust blood pressure medications. CKD stage IV Stable Trend BMP. Chronic anemia Hemoglobin presentation was 11.6. Hemoglobin on 01/27/2020 was 11.8. Hemoglobin on 09/01/2019 was 13.4. No records available in [facility] electronic record ([facility] Trend CBC. DVT prophylaxis SCD ordered. Charges/Coding Visit Charges OBSV E&M: 38117 Initial observation care L3
[2021-11-23 01:57] VITALS: BMI 26.6
[2021-11-23 01:59] VITALS: BP 142/70; PULSE 71; RESP 16; TEMP 36.5; O2SAT 97
[2021-11-23] MEDS: Lactated Ringers 1,000 ML 60 ML IV (02:27)
[2021-11-23] MEDS: Enalaprilat 1.25 MG/ML Vial 0.625 MG IV (05:07)
[2021-11-23 05:57] LABS: Absolute Lymphocyte Count 1.44 X10^3/uL (0.83-4.51); Basophil# 0.07 X10^3/uL; Basophil% 0.7 % (0-1); Eosinophil# 0.15 X10^3/uL; Eosinophils% 1.6 % (0-5); Hematocrit 34.4 % (37-47); Hemoglobin 11.9 g/dL (12.0-15.0); Lymphocyte # 1.44 X10^3/ul (0.83-4.51); Lymphocyte % 15.3 % (19-41); Mean Corp Hgb Conc 34.6 g/dL (32-36); Mean Corpuscular Hgb 32.3 pg (27.0-32.0); Mean Corpuscular Volume 93.5 fL (81-99); Monocyte# 0.73 X10^3/uL; Monocyte% 7.8 % (0-10); NRBC Flagged by Analyzer 0 % (0-5); Neutrophil # 6.97 X10^3/uL (2.7-7.7); Neutrophil % 74.3 % (47-70); Platelet Count 334 K/mm3 (150-450); RBC Distribution Width CV 12.6 % (11.6-14.6); Red Blood Count 3.68 M/mm3 (4.2-5.4); White Blood Count 9.4 K/mm3 (4.4-11.0)
[2021-11-23 06:25] LABS: Anion Gap 7 (5-15); BUN 21 mg/dL (7-18); BUN/Creat Ratio 15.7 RATIO (10-20); Calcium,Total 9.3 mg/dL (8.5-10.1); Chloride 103 mmol/L (98-107); Creatinine, Serum 1.34 mg/dL (0.55-1.02); EST Glomerular Filtration Rate 41 mL/min (>60); Est Glom Filt Rate - Afr Amer 50 mL/min (>60); Estimated Creatinine Clearance 28.64 ml/min; Glucose 101 mg/dL (74-106); Potassium 4.2 mmol/L (3.5-5.1); Sodium Level 136 mmol/L (136-145)
--- NOTE | 2021-11-23 07:16 | EX.PCM.CON.S ---
Assessment & Plan Assessment/Plan (1) Partial obstruction of small intestine: PLAN: Patient has CT scan which showed some dilated proximal loops of small bowel. The distal loops of small bowel are thickened. The patient has not had any abdominal surgery. It is unlikely that this is bowel obstruction due to adhesions. I believe it is more likely that this is gastroenteritis. I recommend continuing n.p.o. with IV fluids for 24 more hours and possibly start clears tomorrow. If her symptoms worsen I will order a small bowel follow-through. As long as improved by tomorrow we will start diet tomorrow and advance as tolerated. Yaya Little MD Pager: [facility] [address] [place] [address], [address] [place] [address] Office: HPI Consult Data Date of Consult: 11/23/21 HPI Narrative HPI Narrative: KATHIE PALUMBO, is a 71 F who presented to the emergency room last night with abdominal pain. This started yesterday. She reports that she did have 3 bowel movements yesterday. She did not have any nausea or vomiting but she did have belching. She says that she has had 1 episode of this in the past back about a month or 2 ago. She is not having much abdominal pain. [facility] Medical History Back pain cataract surgery (~2015) Difficulty balancing Hay fever Heart disease Hypertension Neck pain Seasonal allergies Shoulder pain Home Medications calcium carbonate 1,200 mg PO DAILY 01/24/17 [History Last Taken 11/22/21] cholecalciferol (vitamin D3) 1,000 unit PO 0800,1200 01/24/17 [History Last Taken 11/22/21] cinnamon bark 1,000 mg PO 0800,1200 01/24/17 [History Last Taken 11/22/21] lorazepam 0.5 - 1 mg PO DAILY PRN PRN 01/24/17 [History Last Taken 01/25/17 06:00] sipszznslxrh-Wp-hbta-minerals 1 ea PO DAILY 01/24/17 [History Last Taken 11/22/21] red yeast rice 600 mg PO 0800,1200 01/24/17 [History Last Taken 11/22/21] lisinopril 20 mg PO DAILY #30 tab 09/01/19 [Rx Last Taken 11/22/21] loratadine 10 mg PO DAILY 09/01/19 [History Last Taken 11/22/21] conjugated estrogens 0.625 mg/gram vaginal cream 0.625 mg VAGINAL MOFR 08/25/20 [History Last Taken 11/19/21] fluticasone propionate 50 mcg/actuation nasal spray,suspension 1 spray INTRANASAL DAILY 08/25/20 [History Last Taken 11/22/21] famotidine 20 mg tablet 20 mg PO DAILY PRN 08/12/21 [History Last Taken Unknown] ascorbic acid (vitamin C) 1,000 mg tablet 1 g PO DAILY 08/26/21 [History Last Taken 11/22/21] amlodipine 7.5 mg PO DAILY 11/23/21 [History Last Taken 11/22/21] Allergy/AdvReac Type Severity Reaction Status Date / Time cyclobenzaprine Allergy Mild other Verified 11/22/21 22:31 oxycodone [From Percocet] AdvReac DIZZY,LIGHT Verified 11/22/21 22:31 HEADNESS Family History Other Diabetes Heart disease Hypertension Surgical History History of carpal tunnel release of both wrists (~2016) Social History Smoking Status: Never smoker alcohol intake: never substance use type: does not use caffeine: Yes what type of physical activity do you participate in: walking frequency: 5-6 times per week seatbelt use: always do you feel safe at home: Yes additional social history: Amrita CHACKO Constitutional Constitutional: Denies anorexia or fatigue Eyes Eyes: Denies blurry vision ENT HEENT: Denies abnormal hearing Cardiovascular Cardiovascular: Denies chest pain Gastrointestinal Gastrointestinal: Reports abdominal pain and bloating; Denies constipation, melena, nausea or vomiting Genitourinary Genitourinary: Denies change in urinary stream Musculoskeletal Musculoskeletal: Denies abnormal gait Integumentary Integumentary: Denies jaundice Neurologic Neurologic: Denies dizziness Psychiatric Psychiatric: Denies anxiety Endocrine Endocrinology: Denies flushing Hematologic/Lymphatic Hematologic/Lymphatic: Denies easy bleeding Physical Exam Const alert and oriented x3 HEENT normocephalic Eyes PERRL Neck full ROM Lymph Lymphatic: no lymphadenopathy noted Resp no retractions Cardio Rate: regular rate GI soft to palpation Palpation: hernia umbilical; Negative for guarding Back/Spine no CVA tenderness Extremity normal to inspection Lab / Micro Data Result Diagrams: 11/23/21 05:41 11/23/21 05:41 Labs: Laboratory Results - last 24 hr 11/22/21 22:44: WBC 10.4, RBC 3.63 L, Hgb 11.6 L, Hct 34.0 L, MCV 93.7, MCH 32.0, MCHC 34.1, RDW Std Deviation 43.0, RDW Coeff of Clay 12.4, Plt Count 360, MPV 9.3, Immature Gran % (Auto) 0.900, Neut % (Auto) 66.1, Lymph % (Auto) 22.8, [place] % (Auto) 7.1, Eos % (Auto) 2.2, Baso % (Auto) 0.9, Absolute Neuts (auto) 6.9, Absolute Lymphs (auto) 2.36, Nucleated RBC % 0 11/22/21 22:44: Sodium 134 L, Potassium 4.2, Chloride 101, Carbon Dioxide 26.0, Anion Gap 7, BUN 23 H, Creatinine 1.41 H, Estim Creat Clear Calc 27.21, Est GFR (MDRD) Af Amer 47 L, Est GFR (MDRD) Non-Af 39 L, BUN/Creatinine Ratio 16.3, Glucose 112 H, Calcium 9.2, Troponin I High Sens 18 11/22/21 22:44: Total Bilirubin 0.40, Direct Bilirubin 0.11, AST 20, ALT 27, Alkaline Phosphatase 62, Total Protein 7.4, Albumin 4.0, Globulin 3.4, Lipase 291 11/23/21 05:41: WBC 9.4, RBC 3.68 L, Hgb 11.9 L, Hct 34.4 L, MCV 93.5, MCH 32.3 H, MCHC 34.6, RDW Std Deviation 43.0, RDW Coeff of [place] 12.6, Plt Count 334, MPV 9.0, Immature Gran % (Auto) 0.300, Neut % (Auto) 74.3 H, Lymph % (Auto) 15.3 L, [place] % (Auto) 7.8, Eos % (Auto) 1.6, Baso % (Auto) 0.7, Absolute Neuts (auto) 7.0, Absolute Lymphs (auto) 1.44, Nucleated RBC % 0 11/23/21 05:41: Sodium 136, Potassium 4.2, Chloride 103, Carbon Dioxide 26.0, Anion Gap 7, BUN 21 H, Creatinine 1.34 H, Estim Creat Clear Calc 28.64, Est GFR (MDRD) Af Amer 50 L, Est GFR (MDRD) Non-Af 41 L, BUN/Creatinine Ratio 15.7, Glucose 101, Calcium 9.3 Radiology Impression Abdomen/Pelvis CT 11/23/21 00:00 IMPRESSION: Possible small bowel obstruction with indeterminate zone of transition versus enteritis/inflammatory bowel disease . Clinical correlation recommended. If clinical symptoms do not improve, recommend 2 views of the abdomen to evaluate progression. Nonspecific bilateral simple renal cysts as described. Small stone within the gallbladder otherwise unremarkable abdominal viscera. No acute appendicitis. Electronically Signed: Dyana Suarez MD at 0:38 EDT ,
[2021-11-23 08:00] VITALS: BP 94/52; PULSE 72; RESP 16; TEMP 36.8; O2SAT 97
--- NOTE | 2021-11-23 08:01 | PN.HOSP_ITS ---
Subjective Subjective Follow-up on small bowel obstruction: Patient seen and examined. She has had one bowel movements and has been passing gas. She denied any nausea or vomiting. Denied any abdominal pain. Objective Data Objective Data Vital Signs: Vital Signs Temp Pulse Resp BP Pulse Ox 97.7 F L 71 16 142/70 H 97 11/23/21 01:59 11/23/21 01:59 11/23/21 01:59 11/23/21 01:59 11/23/21 01:59 Oxygen Delivery Method Room Air Weight: 63.9 kg Body Mass Index (BMI) 26.6 Intake & Output: Intake and Output for Last 24 Hours 11/21/21 11/22/21 11/23/21 23:59 23:59 23:59 Intake Total 535 / 535 Output Total 200 / 200 Balance 335 / 335 Lab / Micro Data Result Diagrams: 11/23/21 05:41 11/23/21 05:41 Labs: Laboratory Results - last 24 hr 11/22/21 22:44: WBC 10.4, RBC 3.63 L, Hgb 11.6 L, Hct 34.0 L, MCV 93.7, MCH 32.0, MCHC 34.1, RDW Std Deviation 43.0, RDW Coeff of Clay 12.4, Plt Count 360, MPV 9.3, Immature Gran % (Auto) 0.900, Neut % (Auto) 66.1, Lymph % (Auto) 22.8, [place] % (Auto) 7.1, Eos % (Auto) 2.2, Baso % (Auto) 0.9, Absolute Neuts (auto) 6.9, Absolute Lymphs (auto) 2.36, Nucleated RBC % 0 11/22/21 22:44: Sodium 134 L, Potassium 4.2, Chloride 101, Carbon Dioxide 26.0, Anion Gap 7, BUN 23 H, Creatinine 1.41 H, Estim Creat Clear Calc 27.21, Est GFR (MDRD) Af Amer 47 L, Est GFR (MDRD) Non-Af 39 L, BUN/Creatinine Ratio 16.3, Glucose 112 H, Calcium 9.2, Troponin I High Sens 18 11/22/21 22:44: Total Bilirubin 0.40, Direct Bilirubin 0.11, AST 20, ALT 27, Alkaline Phosphatase 62, Total Protein 7.4, Albumin 4.0, Globulin 3.4, Lipase 291 05/24/22 05:41: WBC 9.4, RBC 3.68 L, Hgb 11.9 L, Hct 34.4 L, MCV 93.5, MCH 32.3 H, MCHC 34.6, RDW Std Deviation 43.0, RDW Coeff of [place] 12.6, Plt Count 334, MPV 9.0, Immature Gran % (Auto) 0.300, Neut % (Auto) 74.3 H, Lymph % (Auto) 15.3 L, [place] % (Auto) 7.8, Eos % (Auto) 1.6, Baso % (Auto) 0.7, Absolute Neuts (auto) 7.0, Absolute Lymphs (auto) 1.44, Nucleated RBC % 0 11/23/21 05:41: Sodium 136, Potassium 4.2, Chloride 103, Carbon Dioxide 26.0, Anion Gap 7, BUN 21 H, Creatinine 1.34 H, Estim Creat Clear Calc 28.64, Est GFR (MDRD) Af Amer 50 L, Est GFR (MDRD) Non-Af 41 L, BUN/Creatinine Ratio 15.7, Glucose 101, Calcium 9.3 Radiography Diagnostic Testing: Radiology Impression Abdomen/Pelvis CT 11/23/21 00:00 IMPRESSION: Possible small bowel obstruction with indeterminate zone of transition versus enteritis/inflammatory bowel disease . Clinical correlation recommended. If clinical symptoms do not improve, recommend 2 views of the abdomen to evaluate progression. Nonspecific bilateral simple renal cysts as described. Small stone within the gallbladder otherwise unremarkable abdominal viscera. No acute appendicitis. Electronically Signed: Dyana Suarez MD at 0:38 EDT , Physical Exam Narrative Physical exam: General: Alert, Oriented x3, Cooperative, HEENT: Atraumatic Oral: Moist Mucosa Neck: Supple Lungs: Clear to auscultation Cardiovascular: HS I+II, regular, no murmurs Abdomen: Bowel Sounds Present, Soft, Non Tender, no palpable organs Extremities: No edema Skin: No rashes, No breakdown Neurological: Grossly intact Psych/Mental Status: Appropriate Assessment & Plan Assessment/Plan (1) Partial obstruction of small intestine: PLAN: 1. Acute small bowel obstruction, appears to be resolving Patient has had bowel movement Started on clear liquid diet We will continue to monitor General surgery consulted and following 2. Hypertension, relatively hypotensive, blood pressure medications on hold We will continue to monitor 3. CKD stage IIIb, creatinine is at baseline. Creatinine today is 2.56 We will continue to monitor stage IIIb; creatinine now close to baseline at 1.34 4. DVT PPx- SCDs Charges/Coding Visit Charges Inpatient E&M: 54840 Subs Hosp L2
[2021-11-23 08:39] VITALS: PULSE 72
--- NOTE | 2021-11-23 11:35 | CASEMGMT ---
FERNANDO FAY Assessment: Face to Face with pt for initial transition planning/care coordination assessment. RN NYA introduced self and role at [facility], pt voices understanding and consents to assessment. Pt is A/O x4 and answers all questions appropriately at this time. Pt lying in bed in no distress. Care providers, pharmacy, and demographics verified/updated. Admitting Dx: SBO PCP:Alex Specialists:Ghislaine, TRANSPORT SPECIALIST; Dalia, uro; Rocio, surgery Preferred Pharmacy: [facility] Insurance: [employer] Prescription Benefit: yes LW/HPOA: Pt has a LW/DPOA on file at [facility]. Her DPOA is her Kwaku Telles. LNOK: Kwaku Telles, Living Arrangements: Pt lives with in a single story home with 4 steps to enter. Pt reports she is I in ADL's and denies concerns at home. Transportation: Pt drives self and denies concerns with transportation. DME/HHC/SNF: Pt has canes at home but does not use. Pt denies hx of HHC or SNF stays. Pt states no concerns with going home at time of dc. Pt states no further concerns/needs. CM to follow. Advised pt to ask CM if any further question/concerns/needs arise, voices understanding. Pt Goal: Home Plan: Home
--- NOTE | 2021-11-23 14:29 | CHAPLAIN ---
Type of Pastoral Visit _x__ Initial Visit ___ Follow-up Visit ___ On-call Visit ___ General Patient Visit ___ Spiritual Assessment ___ Family Conference ___ Bereavement ___ Rapid Response ___ Code Blue ___ Other (describe below) Pastoral Care Referral From _x__ Patient ___ Family ___ Nurse ___ Physician ___ Bank President ___ Flight Hostess ___ Other (describe below) Sacrament/Intervention _x__ Active listening ___ Anointing ___ Roman Catholic ___ Bereavement ___ Communion _x__ Samantha exploration ___ _x__ Life review _x__ Prayer ___ Reconciliation ___ Sacrament of Sick ___ Supportive presence ___ Wedding ___ Other (describe below) Pastoral Comments patient is very talkative about issue, self, and life; spouse is with patient in the room; no particular concerns or needs but patient did ask for a prayer
[2021-11-23 16:39] VITALS: PULSE 70
[2021-11-23 17:19] VITALS: BP 102/68; PULSE 70; RESP 16; TEMP 36.7; O2SAT 97
[2021-11-23 20:31] VITALS: BP 131/70; PULSE 62; RESP 16; TEMP 36.9; O2SAT 99
[2021-11-24 03:30] VITALS: BP 118/62; PULSE 70; RESP 18; TEMP 36.8; O2SAT 98
[2021-11-24 05:17] LABS: Absolute Lymphocyte Count 1.82 X10^3/uL (0.83-4.51); Absolute Neutrophil Count 4.1 X10^3/uL (2.0-7.7); Basophil# 0.05 X10^3/uL; Basophil% 0.7 % (0-1); Eosinophil# 0.18 X10^3/uL; Eosinophils% 2.6 % (0-5); Hemoglobin 10.8 g/dL (12.0-15.0); Lymphocyte # 1.82 X10^3/ul (0.83-4.51); Lymphocyte % 26.4 % (19-41); Mean Corp Hgb Conc 33.8 g/dL (32-36); Mean Corpuscular Volume 94.7 fL (81-99); Mean Platelet Vol. 9.1 fl (6.2-12.0); Monocyte# 0.71 X10^3/uL; Monocyte% 10.3 % (0-10); NRBC Flagged by Analyzer 0 % (0-5); Neutrophil # 4.12 X10^3/uL (2.7-7.7); Neutrophil % 59.9 % (47-70); Platelet Count 299 K/mm3 (150-450); RBC Distribution Width CV 12.8 % (11.6-14.6); RBC Distribution Width SD 43.9 fl (35.1-43.9); Red Blood Count 3.38 M/mm3 (4.2-5.4); White Blood Count 6.9 K/mm3 (4.4-11.0)
[2021-11-24 05:46] LABS: AST(SGOT) 22 U/L (15-37); Alanine Aminotransfer ALT/SGPT 22 U/L (13-56); Albumin, Serum 3.3 g/dL (3.2-5.0); Alkaline Phosphatase 51 U/L (45-117); Anion Gap 4 (5-15); BUN 20 mg/dL (7-18); BUN/Creat Ratio 17.7 RATIO (10-20); Calcium,Total 8.5 mg/dL (8.5-10.1); Chloride 106 mmol/L (98-107); Creatinine, Serum 1.13 mg/dL (0.55-1.02); EST Glomerular Filtration Rate 50 mL/min (>60); Est Glom Filt Rate - Afr Amer 61 mL/min (>60); Estimated Creatinine Clearance 33.96 ml/min; Globulin 3.4 g/dL (2.2-4.2); Glucose 90 mg/dL (74-106); Potassium 4.5 mmol/L (3.5-5.1); Protein, Total 6.7 g/dL (6.4-8.2); Sodium Level 136 mmol/L (136-145)
--- NOTE | 2021-11-24 07:13 | PCM.PN.SRG ---
Subjective Subjective The patient ports that she had several bowel movements. She is having no abdominal pain. She tolerated clears yesterday. She denies any nausea or vomiting. Objective Data Objective Data Vital Signs: Vital Signs Temp Pulse Resp BP Pulse Ox 98.2 F 70 18 118/62 98 11/24/21 03:30 11/24/21 03:30 11/24/21 03:30 11/24/21 03:30 11/24/21 03:30 Oxygen Delivery Method Room Air Weight: 140 lb 14.006 oz Body Mass Index (BMI) 26.6 Intake & Output: Intake and Output for Last 24 Hours 11/22/21 11/23/21 11/24/21 23:59 23:59 23:59 Intake Total 2310 / 2310 Output Total 880 / 880 Balance 1430 / 1430 Lab / Micro Data Result Diagrams: 11/24/21 04:51 11/24/21 04:51 Labs: Laboratory Results - last 24 hr 11/24/21 04:51: WBC 6.9, RBC 3.38 L, Hgb 10.8 L, Hct 32.0 L, MCV 94.7, MCH 32.0, MCHC 33.8, RDW Std Deviation 43.9, RDW Coeff of Clay 12.8, Plt Count 299, MPV 9.1, Immature Gran % (Auto) 0.100, Neut % (Auto) 59.9, Lymph % (Auto) 26.4, [place] % (Auto) 10.3 H, Eos % (Auto) 2.6, Baso % (Auto) 0.7, Absolute Neuts (auto) 4.1, Absolute Lymphs (auto) 1.82, Nucleated RBC % 0 11/24/21 04:51: Sodium 136, Potassium 4.5, Chloride 106, Carbon Dioxide 26.0, Anion Gap 4 L, BUN 20 H, Creatinine 1.13 H, Estim Creat Clear Calc 33.96, Est GFR (MDRD) Af Amer 61, Est GFR (MDRD) Non-Af 50 L, BUN/Creatinine Ratio 17.7, Glucose 90, Calcium 8.5, Total Bilirubin 0.40, AST 22, ALT 22, Alkaline Phosphatase 51, Total Protein 6.7, Albumin 3.3, Globulin 3.4, Albumin/Globulin Ratio 1.0 Physical Exam Const oriented x3 and no apparent distress Resp normal respiratory effort Cardio regular rate and regular rhythm GI soft to palpation and non-tender Inspection: Negative for abdominal distention Assessment & Plan Assessment/Plan (1) Partial obstruction of small intestine: PLAN: Patient tolerated clears. She is not having any abdominal pain and she is having bowel function. Likely she had gastroenteritis. I will advance her to regular diet and she may be discharged home if she tolerates regular diet from my standpoint. Follow-up as needed. Yaya Little MD Pager: [facility] [address] [place] [address], [address] [place] [address] Office:
[2021-11-24 08:28] VITALS: BP 144/68; PULSE 66; RESP 17; TEMP 36.7; O2SAT 98
[2021-11-24] MEDS: amLODIPine 2.5 MG Tablet 7.5 MG PO (08:32)
--- NOTE | 2021-11-24 09:45 | PCM.DC ---
Discharge Instructions Diet Discharge Diet: 2000 mg Sodium Diet Activity Discharge Activity: Return to Normal Activity Follow Up Care Test Results: Test results from this visit will be discussed in further detail at your follow-up appointment, if applicable. Discharge Plan Admission Admit Date/Time: 11/23/21 11:28 Primary Reason for Your Visit: Acute SBO Attending Provider: Quiana Xavier Primary Care Provider: Bassam Johnson Consulting Providers: Yaya Little ; Milo Borges Instructions Additional Instructions / Restrictions: Take note that your Lisinopril was held in the hospital because your BP was relatively low. Take your BP daily and keep a log of it. Follow-up with your primary care doctor within 2 weeks. Discharge Orders/Prescriptions Prescriptions: Continued fluticasone propionate 50 mcg/actuation spray,suspension 1 spray INTRANASAL DAILY RF: 0 Premarin 0.625 mg/gram cream 0.625 mg VAGINAL MOFR RF: 0 ascorbic acid (vitamin C) 1,000 mg tablet 1 g PO DAILY RF: 0 famotidine [Pepcid] 20 mg tablet 20 mg PO DAILY PRN (Reason: GERD) RF: 0 calcium carbonate 600 MG tablet 1,200 mg PO DAILY RF: 0 lorazepam 0.5 MG tablet 0.5 - 1 mg PO DAILY PRN PRN (Reason: Anxiety) RF: 0 cholecalciferol (vitamin D3) 1,000 UNIT capsule 1,000 unit PO 0800,1200 RF: 0 fuwfkfjloffe-Ew-xosx-minerals 1 EACH tablet 1 ea PO DAILY RF: 0 cinnamon bark 500 MG capsule 1,000 mg PO 0800,1200 RF: 0 red yeast rice 600 MG capsule 600 mg PO 0800,1200 RF: 0 loratadine 10 MG tablet,disintegrating 10 mg PO DAILY RF: 0 amlodipine 5 MG tablet 7.5 mg PO DAILY RF: 0 Discontinued lisinopril 20 MG tablet 20 mg PO DAILY Qty: 30 RF: 0 Referrals / Follow Up: Bassam Johnson DO [Primary Care Provider] - Within 1 Week Disposition Disposition (needs filled in before D/C Order can be placed): Home, Self Care
--- NOTE | 2021-11-24 09:48 | PCM.DC.SUM ---
Providers Date of Admission: 11/23/21 Date of Discharge: 11/24/21 Primary Care Physician: Dr. Bassam Johnson, Consultations 11/23/21 01:50 Consult: General Surgery Routine Consulting Provider: Yaya Little Reason for Consult: SBO EMERGENT Consult: No MD Notified: Yes Date Notified: 11/23/21 Time Notified: 06:52 Method of Notification: Verbal Reason For Visit: SMALL BOWEL OBSTRUCTION Diagnosis Discharge Diagnosis (1) Partial obstruction of small intestine: Status: Acute Code(s): K56.600 - Partial intestinal obstruction, unspecified as to cause Medications at Discharge Home Medications calcium carbonate 1,200 mg PO DAILY 01/24/17 cholecalciferol (vitamin D3) 1,000 unit PO 0800,1200 01/24/17 cinnamon bark 1,000 mg PO 0800,1200 01/24/17 lorazepam 0.5 - 1 mg PO DAILY PRN PRN 01/24/17 cankzqyhbbka-On-uguc-minerals 1 ea PO DAILY 01/24/17 red yeast rice 600 mg PO 0800,1200 01/24/17 loratadine 10 mg PO DAILY 09/01/19 conjugated estrogens 0.625 mg/gram vaginal cream 0.625 mg VAGINAL MOFR 08/25/20 fluticasone propionate 50 mcg/actuation nasal spray,suspension 1 spray INTRANASAL DAILY 08/25/20 famotidine 20 mg tablet 20 mg PO DAILY PRN 08/12/21 ascorbic acid (vitamin C) 1,000 mg tablet 1 g PO DAILY 08/26/21 amlodipine 7.5 mg PO DAILY 11/23/21 Hospital Course Operations None Procedures None Summary of Care Provided Minutes Spent on Discharge: 45 Hospital Course: 71-year-old female past medical history of hypertension, who presented with abdominal pain that started 3 hours after eating nuts. Patient denied any nausea or vomiting or fever. Her abdominal pain was located in the epigastric region and radiated to her umbilicus. It was achy/pressure, constant. CT of the abdomen and pelvis was suggestive of acute partial bowel obstruction versus enteritis versus inflammatory small bowel. Patient was admitted to the [facility], managed conservatively on IV fluids, kept NPO. General surgery was consulted. Patient continued to improve, had multiple bowel movement. She was transitioned to clear liquid diet. She continued to improve. She was able to tolerate a regular diet. She was discharged to follow-up with her primary care doctor within 1 to 2 weeks. During his hospital stay, patient's blood pressure is relatively low. Lisinopril held. Patient was continued only on amlodipine 7.5 mg daily. Patient was commended to follow-up with her primary care doctor within 1 week for reassessment of resumption of lisinopril. She was asked to keep a log of blood pressures daily. Physical Exam Narrative Physical exam: General: Alert, Oriented x3, Cooperative, HEENT: Atraumatic Oral: Moist Mucosa Neck: Supple Lungs: Clear to auscultation Cardiovascular: HS I+II, regular, no murmurs Abdomen: Bowel Sounds Present, Soft, Non Tender, no palpable organs Extremities: No edema Skin: No rashes, No breakdown Neurological: Grossly intact Psych/Mental Status: Appropriate Weight / BMI Weight Weight: 63.9 kg Body Mass Index (BMI) 26.6 ABG / Lab / Microbiology Data Result Diagrams: 11/24/21 04:51 11/24/21 04:51 Laboratory: Laboratory Results - last 24 hr 11/24/21 04:51: WBC 6.9, RBC 3.38 L, Hgb 10.8 L, Hct 32.0 L, MCV 94.7, MCH 32.0, MCHC 33.8, RDW Std Deviation 43.9, RDW Coeff of Clay 12.8, Plt Count 299, MPV 9.1, Immature Gran % (Auto) 0.100, Neut % (Auto) 59.9, Lymph % (Auto) 26.4, Reynolds % (Auto) 10.3 H, Eos % (Auto) 2.6, Baso % (Auto) 0.7, Absolute Neuts (auto) 4.1, Absolute Lymphs (auto) 1.82, Nucleated RBC % 0 11/24/21 04:51: Sodium 136, Potassium 4.5, Chloride 106, Carbon Dioxide 26.0, Anion Gap 4 L, BUN 20 H, Creatinine 1.13 H, Estim Creat Clear Calc 33.96, Est GFR (MDRD) Af Amer 61, Est GFR (MDRD) Non-Af 50 L, BUN/Creatinine Ratio 17.7, Glucose 90, Calcium 8.5, Total Bilirubin 0.40, AST 22, ALT 22, Alkaline Phosphatase 51, Total Protein 6.7, Albumin 3.3, Globulin 3.4, Albumin/Globulin Ratio 1.0 D/C Instructions Discharge Diet: 2000 mg Sodium Diet Meaningful Use Info Meaningful Use Diagnoses (Choose all that apply): None applicable Discharge Plan Admission Admit Date/Time: 11/23/21 11:28 Primary Reason for Your Visit: Acute SBO Attending Provider: Quiana Xavier Primary Care Provider: Bassam Johnson Consulting Providers: Yaya Little ; Milo Borges Instructions Patient Instructions: Treating Gastritis, Understanding Gastritis Additional Instructions / Restrictions: Take note that your Lisinopril was held in the hospital because your BP was relatively low. Take your BP daily and keep a log of it. Follow-up with your primary care doctor within 2 weeks. Discharge Orders/Prescriptions Prescriptions: Continued fluticasone propionate 50 mcg/actuation spray,suspension 1 spray INTRANASAL DAILY RF: 0 Premarin 0.625 mg/gram cream 0.625 mg VAGINAL MOFR RF: 0 ascorbic acid (vitamin C) 1,000 mg tablet 1 g PO DAILY RF: 0 famotidine [Pepcid] 20 mg tablet 20 mg PO DAILY PRN (Reason: GERD) RF: 0 calcium carbonate 600 MG tablet 1,200 mg PO DAILY RF: 0 lorazepam 0.5 MG tablet 0.5 - 1 mg PO DAILY PRN PRN (Reason: Anxiety) RF: 0 cholecalciferol (vitamin D3) 1,000 UNIT capsule 1,000 unit PO 0800,1200 RF: 0 nwsyvspukinw-Uv-tbbf-minerals 1 EACH tablet 1 ea PO DAILY RF: 0 cinnamon bark 500 MG capsule 1,000 mg PO 0800,1200 RF: 0 red yeast rice 600 MG capsule 600 mg PO 0800,1200 RF: 0 loratadine 10 MG tablet,disintegrating 10 mg PO DAILY RF: 0 amlodipine 5 MG tablet 7.5 mg PO DAILY RF: 0 Discontinued lisinopril 20 MG tablet 20 mg PO DAILY Qty: 30 RF: 0 Referrals / Follow Up: Bassam Johnson DO [Primary Care Provider] - Within 1 Week Disposition Disposition (needs filled in before D/C Order can be placed): Home, Self Care Charges/Coding Visit Charges Inpatient E&M: 58419 Disch Hosp
[2021-11-24 14:16] VITALS: BP 141/93; PULSE 63; RESP 17; TEMP 37.2; O2SAT 99
== END 2021-11-24 15:05 | disposition home or self-care (01) | DRG 392 ==
LOC: ED 11-23 01:18 → MS3 11-23 01:19
PROVIDERS: Admitting Provider Hospitalist; Emergency Provider Emergency Medicine; PCP Family Medicine; Visit Provider Internal Medicine
DX: K52.9 Noninfective gastroenteritis and colitis, unspecified (principal); K56.600 Partial intestinal obstruction, unspecified as to cause; N18.4 Chronic kidney disease, stage 4 (severe); N18.32 Chronic kidney disease, stage 3b; D64.9 Anemia, unspecified; K42.9 Umbilical hernia without obstruction or gangrene; I12.9 Hypertensive chronic kidney disease with stage 1 through stage 4 chronic kidney disease, or unspecified chronic kidney disease; R14.2 Eructation
CPT/HCPCS: 74177; 80048; 80053; 80076; 83690; 84484; 85025; 93005; 99281; J7030; J7120; Q9967; A4216; J3490

== ENCOUNTER → 2021-12-28 | Outpatient (CLI) | payer MEDICARE, OTHER, SELFPAY | END | disposition home or self-care (01) | LOC: LABSPEC 12-29 08:12 | PROVIDERS: PCP Family Medicine; Visit Provider Obstetrics & Gynecology | DX: N39.0 Urinary tract infection, site not specified (principal); R30.0 Dysuria | CPT/HCPCS: 87086; 87088; 87186 ==

== ENCOUNTER → 2022-04-08 | Outpatient (CLI) | payer MEDICARE, OTHER, SELFPAY ==
[2022-04-10 14:35] LABS: Mucous, Urine 0 SEEN /hpf (<or=2+); Red Blood Cells-Urine 0 SEEN /hpf (0-5)
[2022-04-10 14:48] LABS: Color, Urine Yellow (Yellow); Glucose, Dipstick Normal (Normal); Ketone-Dipstick 5 mg/dl (Negative); Leukocyte Esterase-Dipstick 500 /ul (Negative); Nitrite-Dipstick Negative (Negative); Occult Blood-Urine 10 /ul (Negative); Protein-Dipstick 30 mg/dl (Negative); Specific Gravity, Urine 1.015 (1.002-1.030); Urine Bilirubin Dipstick Negative (Negative); Urine Clarity Clear (Clear); Urine Urobilinogen Normal (Normal)
[2022-04-10 15:04] LABS: Bacteria 2+ /hpf (None Seen); Squamous Epithelial Cells - UA 0-5 SEEN /hpf (5-10); White Blood Cells 25-50 SEEN /hpf (0-5)
== END | disposition home or self-care (01) ==
PROVIDERS: PCP Family Medicine; Visit Provider Physician Assistant Surgical
DX: N39.0 Urinary tract infection, site not specified (principal)
CPT/HCPCS: 81001; 87086; 87088; 87186

== ENCOUNTER → 2022-09-12 | Outpatient (CLI) | payer MEDICARE, OTHER, SELFPAY ==
--- NOTE | 2022-09-12 14:34 | BI_ITS ---
MAMMOGRAPHY - BILATERAL SCREENING 3-D TOMOSYNTHESIS REASON FOR EXAM: Female, 72 years old. Routine screening PERTINENT HISTORY: No significant family history. TECHNIQUE: 2-D mammograms and 3-D Tomosynthesis of the breast (s) were performed. CAD was performed. COMPARISON: 09/08/2021 FINDINGS: The breast composition is composed of scattered fibroglandular density. Scattered benign calcifications are seen. No dense spiculated masses or suspicious microcalcifications are identified. No architectural distortion is identified. There is no skin thickening or retraction. There has been no significant change since the prior study. BI/SCRN MAMM (CAD)W/DEBBIE BILAT IMPRESSION: No mammographic signs of malignancy. Routine yearly mammograms recommended. ASSESSMENT CATEGORY: BIRADS Category 1: Negative. A letter regarding these results will be sent to the patient by the facility within 30 days. FOLLOW UP RECOMMENDATION: Yearly follow up mammogram recommended. (A) Approximately 10% of breast cancers are not detected by mammography. A normal mammogram should not delay biopsy of a clinically suspicious abnormality. Electronically Signed: Nato Quezada MD at 15:41 EDT ,
== END | disposition home or self-care (01) ==
LOC: OPBI 14:31
PROVIDERS: PCP Family Medicine; Referring Provider Obstetrics & Gynecology; Visit Provider Obstetrics & Gynecology
DX: Z12.31 Encounter for screening mammogram for malignant neoplasm of breast (principal)
CPT/HCPCS: 77063; 77067

== ENCOUNTER 2022-09-22 10:31 | Emergency (ER) | payer MEDICARE, OTHER, SELFPAY ==
[2022-09-22 10:34] VITALS: BP 133/92; PULSE 67; RESP 16; TEMP 36.4; O2SAT 97; BMI 27.3
--- NOTE | 2022-09-22 15:50 | EDS_ITS ---
HPI History of Present Illness Chief Complaint: General Illness Narrative Narrative: 72-year-old female presenting with concern for possible sinusitis. She states has had this previously. She has not had any drainage or discharge from her nares. No fevers. She reports that previously she was seen for a yeast infection with her [employer] and after that she sustained a UTI. After being treated with antibiotics for UTI she suggested that she developed a candidal infection of her mouth. She was treated for this and is now improving. Patient states that now she is having some epigastric burning and burning in the back of her throat. She states she does not have a history of GERD. She states it is worse in the morning and at night when she is laying down. Radiates from the stomach up into her throat. No chest pain or shortness of breath. No fever or chills. PFSH PFS Medical History Back pain cataract surgery (~2015) Cystitis Difficulty balancing Hay fever Heart disease Hypertension Neck pain Seasonal allergies Shoulder pain Home Medications calcium carbonate 600 mg calcium (1,500 mg) tablet 1,200 mg PO DAILY supplement 01/24/17 [History Last Taken 11/22/21] cholecalciferol (vitamin D3) 25 mcg (1,000 unit) capsule 1,000 unit PO 0800,1200 supplement 01/24/17 [History Last Taken 11/22/21] cinnamon bark 500 mg capsule 1,000 mg PO 0800,1200 supplement 01/24/17 [History Last Taken 11/22/21] lorazepam 0.5 mg tablet 0.5 - 1 mg PO DAILY PRN PRN Anxiety 01/24/17 [History Last Taken 01/25/17 06:00] ewyqcemzdyfz-Gi-kowj-minerals 1 ea PO DAILY supplement 01/24/17 [History Last Taken 11/22/21] red yeast rice 600 mg capsule 600 mg PO 0800,1200 supplement 01/24/17 [History Last Taken 11/22/21] loratadine 10 mg disintegrating tablet 10 mg PO DAILY allergies 09/01/19 [History Last Taken 11/22/21] conjugated estrogens 0.625 mg/gram vaginal cream (Premarin) 0.625 mg vaginal MOFR Check with primary doctor 08/25/20 [History Last Taken 11/19/21] fluticasone propionate 50 mcg/actuation nasal spray,suspension 1 spray intranasal DAILY allergies 08/25/20 [History Last Taken 11/22/21] famotidine 20 mg tablet (Pepcid) 20 mg PO DAILY PRN GERD 08/12/21 [History Last Taken Unknown] ascorbic acid (vitamin C) 1,000 mg tablet 1 g PO DAILY supplement 08/26/21 [History Last Taken 11/22/21] amlodipine 5 mg tablet 7.5 mg PO DAILY hypertension 05/09/22 [History Last Taken Unknown] lisinopril 10 mg tablet 10 mg PO DAILY 05/09/22 [History Last Taken Unknown] fluconazole 150 mg tablet 150 mg PO ONCE #1 TAB 08/19/22 [Rx Last Taken Unknown] omeprazole 20 mg capsule,delayed release 20 mg PO DAILY #30 CAPSULES 09/22/22 [Rx Last Taken Unknown] Allergy/AdvReac Type Severity Reaction Status Date / Time cyclobenzaprine Allergy Mild other Verified 09/22/22 10:38 oxycodone [From Percocet] AdvReac DIZZY,LIGHT Verified 09/22/22 10:38 HEADNESS Family History Other Diabetes Heart disease Hypertension Surgical History History of carpal tunnel release of both wrists (~2017) Social History Smoking Status: Never smoker alcohol intake: never substance use type: does not use caffeine: Yes what type of physical activity do you participate in: walking frequency: 5-6 times per week seatbelt use: always do you feel safe at home: Yes additional social history: Amrita CHACKO ED Review of Systems ROS Unobtainable: due to encephalopathy Constitutional Constitutional ED: Denies chills or fever(s) Eyes Eyes: Denies change in vision or diplopia ENT ENT ED: Denies ear pain, rhinorrhea or sore throat Cardiovascular Cardiovascular: Denies chest pain or palpitations Respiratory/Chest Respiratory/Chest: Denies cough or dyspnea Gastrointestinal Gastrointestinal: Reports other Details: Dyspepsia ; Denies abdominal pain Genitourinary Genitourinary ED: Denies dysuria Musculoskeletal Musculoskeletal: Denies arthralgias or back pain Integumentary Denies abscess or Abrasions Neurologic Neurologic: Denies headache(s) Psychiatric Psychiatric: Denies anxiety or depression EXAM Physical Exam Const Vital Signs: 09/22/22 10:34 09/22/22 11:18 Temperature 97.5 F L Temperature Source Temporal Pulse Rate 67 Respiratory Rate 16 Respiratory Effort Normal Non-Labored Respiratory Pattern Normal Blood Pressure 133/92 H Blood Pressure Mean 105 Pulse Ox 97 Oxygen Delivery Method Room Air Positive well nourished General Appearance ED: NAD HEENT Reports moist mucous membranes normocephalic Face and Sinus: normal facial exam and face symmetric; Negative for facial edema Nose: external nose normal, nares normal and nasal mucous membranes and turbinates normal External Ear: external ears normal and mastoids normal Tympanic Membrane ED: Yes TM's normal bilaterally Mouth ED: Yes oral and palatal mucosa normal, Yes lips normal, Yes tongue normal, Yes salivary gland normal and Yes moist mucous membranes normal Mouth: oral and palatal mucosa normal, lips normal, tongue normal and salivary gland normal Throat: posterior oropharynx normal Eyes PERRL and EOMs intact bilaterally Resp normal respiratory effort Effort and Inspection: Negative for retractions Cardio regular rate and regular rhythm Neuro oriented x3 and CN's II-XII intact bilaterally Sensorium / Orientation: alert Psych mental status grossly normal MDM MDM MDM Narrative Medical decision making narrative: He sawPatient presenting with concern for possible this but I do not find any abnormalities on her HEENT exam. She is more concerned with dyspepsia and GERD symptoms. He is a worse at night when she is laying down in the morning. She is not having chest pain or shortness of breath. She has no red flag signs or symptoms. I recommended her that I treat her with omeprazole for home and see if this improves her symptoms. No believe she needs blood work or imaging. I do not believe she needs antibiotics for sinusitis and we actually discussed that she would likely get another yeast infection from antibiotics that are unwarranted and I do not think she needs them currently. She is amenable to this. She discharged home in stable condition. Impression: 1. GERD Lab Data Attestation: I reviewed the patient's lab results. Discharge Plan Triage Chief Complaint: General Illness ED Provider: Saad Leos Dx/Rx/DC Orders Instructions: ED GERD (Adult), ED Sinusitis (No Antibiotics) Prescriptions: New omeprazole 20 mg capsule,delayed release(DR/EC) 20 mg PO DAILY Qty: 30 0RF No Action fluticasone propionate 50 mcg/actuation spray,suspension 1 spray INTRANASAL DAILY Rx Instructions: administer into each nostril Premarin 0.625 mg/gram cream 0.625 mg VAGINAL MOFR Rx Instructions: off 5 days; repeat cycle ascorbic acid (vitamin C) 1,000 mg tablet 1 g PO DAILY famotidine [Pepcid] 20 mg tablet 20 mg PO DAILY PRN (Reason: GERD) lisinopril 10 mg tablet 10 mg PO DAILY calcium carbonate 600 MG tablet 1,200 mg PO DAILY lorazepam 0.5 MG tablet 0.5 - 1 mg PO DAILY PRN PRN (Reason: Anxiety) cholecalciferol (vitamin D3) 1,000 UNIT capsule 1,000 unit PO 0800,1200 cljhnfwguujz-Xm-aqwb-minerals 1 EACH tablet 1 ea PO DAILY cinnamon bark 500 MG capsule 1,000 mg PO 0800,1200 red yeast rice 600 MG capsule 600 mg PO 0800,1200 loratadine 10 MG tablet,disintegrating 10 mg PO DAILY amlodipine 5 mg tablet 7.5 mg PO DAILY fluconazole 150 mg tablet 150 mg PO ONCE Qty: 1 0RF Rx Instructions: as a single dose Primary Care Provider: Bassam Johnson Referrals: Bassam Johnson DO [Primary Care Provider] - Disposition Disposition: Home, Self Care Discharge Date/Time: 09/22/22 12:03
== END 2022-09-22 12:03 | disposition home or self-care (01) ==
PROVIDERS: Emergency Provider Student in an Organized Health Care Education/Training Program; PCP Family Medicine; Visit Provider Student in an Organized Health Care Education/Training Program
DX: K21.9 Gastro-esophageal reflux disease without esophagitis (principal); I10 Essential (primary) hypertension
CPT/HCPCS: 99282

== ENCOUNTER → 2022-09-29 | Outpatient (CLI) | payer MEDICARE, OTHER, SELFPAY ==
--- NOTE | 2022-09-29 12:21 | US_ITS ---
STUDY: ULTRASOUND TRANSVAGINAL CLINICAL: Female, 72 years old. ovarian cyst TECHNIQUE: Transvaginal COMPARISON: October 13, 2021 FINDINGS: Normal uterine size measuring 5.4 x 4.4 x 2.9 cm in maximal craniocaudal dimension. There are no myometrial masses. Normal endometrial thickness measuring 2 mm. There are no endometrial masses, and there is no fluid in the endometrial cavity. There is minor focal calcification possibly due to intrauterine fibroid. Normal uterine cervix. Normal right ovary, measuring 1.1 x 1.1 x 1 cm. There are multiple follicles without a dominant cyst. Normal left ovary, measuring 3.5 x 3.3 x 2 cm. There is a cyst measuring 3 x 2.8 x 1.8 cm There is no free fluid in the pelvis. No significant change since prior exam US/Pelvic (Non ) IMPRESSION: Stable appearance to left ovarian cyst. Electronically Signed: Dennys Botello MD at 17:14 EDT ,
--- NOTE | 2022-09-29 12:22 | BD_ITS ---
STUDY: DUAL ENERGY X-RAY ABSORPTIOMETRY / DXA REASON FOR EXAM: Female, 72 years old. Post menopausal TECHNIQUE: Bone Mineral Density (BMD) measurements of lumbar spine and bilateral hips were obtained. COMPARISON: None. FINDINGS: Lumbar Spine (L1-L4): g/cm2 (1.011) / T-score (0.6) / Z-score (2.2) Findings are suggestive of normal bone density with a low fracture risk. Left Femur Total: g/cm2 (0.963) / T-score (0.2) / Z-score (1.8) Left Femoral Neck: g/cm2 (0.710) / T-score (-1.3) / Z-score (0.7) Right Femur Total: g/cm2 (1.011) / T-score (0.6) / Z-score (2.2) Right Femoral Neck: g/cm2 (0.742) / T-score (-1.0) / Z-score (1.0) BD/Dexa Bone Density Study IMPRESSION: The patient is considered osteopenic as outlined below according to World Joseph Organization (WHO) criteria with a low fracture risk. Reference Information: The T-score is the number of standard deviations above or below the standard which is normal for young adults at their peak bone mineral density. The World Health Organization (WHO) interprets the T-scores as follows: Above -1 Normal bone density Between -1 and -2.5 Osteopenia Equal to / or below -2.5 Osteoporosis As a practical clinical guideline, osteopenia may be graded as follows: Mild -1 through -1.5 Moderate -1.6 through -2.0 Severe -2.1 through -2.4 The Z-score is the number of standard deviations above or below age-matched controls. A Z-score of less than -1.5 would be considered abnormal. References: 1. NIH Osteoporosis and Related Bone Diseases www osteo.org 2. International Society for Clinical Densitometry www iscd.org 3. National Osteoporosis Foundation www nof.org Electronically Signed: Everardo Ann MD at 13:04 EDT ,
== END | disposition home or self-care (01) ==
LOC: US 12:19
PROVIDERS: PCP Family Medicine; Visit Provider Obstetrics & Gynecology
DX: Z78.0 Asymptomatic menopausal state (principal); N83.202 Unspecified ovarian cyst, left side
CPT/HCPCS: 76830; 76856; 77080

== ENCOUNTER 2022-11-16 19:02 | Emergency (ER) | payer MEDICARE, OTHER, SELFPAY ==
[2022-11-16 19:03] VITALS: BP 156/78; PULSE 70; RESP 18; TEMP 36.4; O2SAT 98; BMI 28.4
--- NOTE | 2022-11-16 20:27 | EDS_ITS ---
HPI History of Present Illness Chief Complaint: Back Informant: patient Narrative Narrative: Patient is here with a couple complaints. Her primary complaint is that she has soreness around both shoulders. It is worse when she moves her arms and shoulders and lifts her arms overhead. She denies pain in the chest. She denies coughing or shortness of breath nausea vomiting weakness. She states she has been getting this for years. Occasionally her doctor will give her prednisone and it gets a lot better. She did do some digging in a sidewalk her garden just recently and thinks this exacerbated it. If she does not move it does not hurt but when she moves her arms it hurts. She has no numbness tingling weakness. She is eating and drinking normally. She is also concerned because she knows she has an umbilical hernia that is going to be fixed soon. Dr. Chan showed her how to press it in and she does that when it comes out. She is concerned that maybe having the hernia is worsening her back issue. But she is not hurting at the hernia. She has no nausea vomiting diarrhea constipation or change in bowel habits. No pain at the hernia. She has not taken anything for the back soreness. She states normally she takes Tylenol then Motrin and Tylenol and that helps but she has not taken it. She also states normally she does a lot of stretching every morning and she did not do that today. [facility] Medical History Back pain cataract surgery (~2015) Cystitis Difficulty balancing Hay fever Heart disease Hypertension Neck pain Seasonal allergies Shoulder pain Home Medications calcium carbonate 600 mg calcium (1,500 mg) tablet 1,200 mg PO DAILY supplement 01/24/17 [History Last Taken 11/22/21] cholecalciferol (vitamin D3) 25 mcg (1,000 unit) capsule 1,000 unit PO 0800,1200 supplement 01/24/17 [History Last Taken 11/22/21] cinnamon bark 500 mg capsule 1,000 mg PO 0800,1200 supplement 01/24/17 [History Last Taken 11/22/21] lorazepam 0.5 mg tablet 0.5 - 1 mg PO DAILY PRN PRN Anxiety 01/24/17 [History Last Taken 01/25/17 06:00] ylrevacqeguf-Mt-vzwy-minerals 1 ea PO DAILY supplement 01/24/17 [History Last Taken 11/22/21] red yeast rice 600 mg capsule 600 mg PO 0800,1200 supplement 01/24/17 [History Last Taken 11/22/21] loratadine 10 mg disintegrating tablet 10 mg PO DAILY allergies 09/01/19 [History Last Taken 11/22/21] conjugated estrogens 0.625 mg/gram vaginal cream (Premarin) 0.625 mg vaginal MOFR Check with primary doctor 08/25/20 [History Last Taken 11/19/21] fluticasone propionate 50 mcg/actuation nasal spray,suspension 1 spray intranasal DAILY allergies 08/25/20 [History Last Taken 11/22/21] famotidine 20 mg tablet (Pepcid) 20 mg PO DAILY PRN GERD 08/12/21 [History Last Taken Unknown] ascorbic acid (vitamin C) 1,000 mg tablet 1 g PO DAILY supplement 08/26/21 [History Last Taken 11/22/21] amlodipine 5 mg tablet 7.5 mg PO DAILY hypertension 05/09/22 [History Last Taken Unknown] lisinopril 10 mg tablet 10 mg PO DAILY 05/09/22 [History Last Taken Unknown] fluconazole 150 mg tablet 150 mg PO ONCE #1 TAB 08/19/22 [Rx Last Taken Unknown] omeprazole 20 mg capsule,delayed release 20 mg PO DAILY #30 CAPSULES 09/22/22 [Rx Last Taken Unknown] Allergy/AdvReac Type Severity Reaction Status Date / Time cyclobenzaprine Allergy Mild other Verified 11/16/22 19:03 oxycodone [From Percocet] AdvReac DIZZY,LIGHT Verified 11/16/22 19:03 HEADNESS Family History Other Diabetes Heart disease Hypertension Surgical History History of carpal tunnel release of both wrists (~2016) Social History Smoking Status: Never smoker alcohol intake: never substance use type: does not use caffeine: Yes what type of physical activity do you participate in: walking frequency: 5-6 times per week seatbelt use: always do you feel safe at home: Yes additional social history: Kwaku- ROS ROS ED ROS Narrative A complete review of systems was performed and is negative except as documented in the history of present illness. Some specific details below. Constitutional: No recent fevers or chills. No malaise. Does not feel ill. EYE: No discharge, visual complaints, or pain. ENT: No difficulty swallowing. No swelling. No pain. No reflux symptoms. CV: See history of present illness. She does not have chest pain palpitations or exertional symptoms at all Respiratory: See history of present illness. No coughing or trouble breathing. She has soreness around the right scapula but it does not seem to affect her breathing in any way. GI: No abdominal pain. No nausea vomiting diarrhea. No blood in stool. : No frequency dysuria or hematuria. Musculoskeletal: See history of present illness. Skin: No rash. Nondiaphoretic. Neuro: No weakness or numbness. Endocrine: No polyuria or polydipsia. EXAM Physical Exam Narrative Exam Narrative: CONSTITUTIONAL: Patient is nontoxic in appearance. The patient looks comfortable. Work of breathing looks normal. Patient can talk quite a bit without any dyspnea. HEENT: No notable trauma. Mucous membranes moist. No sinus tenderness. No indication of pain with swallowing. EYES: No conjunctival injection. No proptosis. NECK:No JVD. No stridor. No pain with motion CARDIOVASCULAR: Regular rate. Regular rhythm. No notable murmur. No JVD. Peripheral pulses are equal x4. RESPIRATORY: No respiratory distress. Breathing is unlabored. No wheezes. No rhonchi. No rales. No pain with a deep breath. Saturations are normal at 98% on room air showing no hypoxia GASTROINTESTINAL: Not distended. Bowel sounds are normal. No tenderness. No guarding. No rebound. No palpable mass. No bruit is heard. If I have her strain, I can get a small supraumbilical hernia to appear. But it is easily reduced and oftentimes spontaneously reduces. It is not red or inflamed. It is not tender. I do not think this is causing her symptoms. GENITOURINARY: No tenderness over the bladder. No CVA tenderness. MUSCULOSKELETAL: She does have mild discomfort around the scapula mostly with overhead motion. She has slight discomfort in the musculature with palpation but that does not reproduce it nearly as much as range of motion. Atraumatic. No peripheral edema. No cord. No tenderness along the deep venous system. No asymmetry. No distended veins. NEUROLOGICAL: Patient is alert and appropriate. No focal deficit noted. SKIN: No noted rashes. No diaphoresis. PSYCHIATRIC: Patient is calm. Mood is appropriate. Const Vital Signs: 11/16/22 19:03 Temperature 97.5 F L Temperature Source Temporal Pulse Rate 70 Respiratory Rate 18 Blood Pressure 156/78 H Blood Pressure Mean 104 Pulse Ox 98 Oxygen Delivery Method Room Air MDM MDM MDM Narrative Medical decision making narrative: I explained to the patient that I do not think her hernia is the cause of her symptoms. I do not think she needs any imaging for this hernia as its not tender and spontaneously reduces. I do not think any blood work is needed. She has no indication of heart disease. She has no chest pain trouble breathing exertional symptoms nausea vomiting or diaphoresis. Her symptoms are reproduced with motion. She states she normally gets a short course of prednisone and this resolves her symptoms. I offered this or that we could give a Kenalog shot here. She decided to try the Kenalog shot. We discussed reasons to return which would mostly be development of the above symptoms that she has not had. Discharge Plan Triage Chief Complaint: Back ED Provider: Keyon Mayer Dx/Rx/DC Orders Clinical Impression: Periscapular pain, Hernia, umbilical Instructions: ED Back Spasm, No Trauma, ED Hernia (Adult) Prescriptions: No Action fluticasone propionate 50 mcg/actuation spray,suspension 1 spray INTRANASAL DAILY Rx Instructions: administer into each nostril Premarin 0.625 mg/gram cream 0.625 mg VAGINAL MOFR Rx Instructions: off 5 days; repeat cycle ascorbic acid (vitamin C) 1,000 mg tablet 1 g PO DAILY famotidine [Pepcid] 20 mg tablet 20 mg PO DAILY PRN (Reason: GERD) lisinopril 10 mg tablet 10 mg PO DAILY calcium carbonate 600 MG tablet 1,200 mg PO DAILY lorazepam 0.5 MG tablet 0.5 - 1 mg PO DAILY PRN PRN (Reason: Anxiety) cholecalciferol (vitamin D3) 1,000 UNIT capsule 1,000 unit PO 0800,1200 dvlmldqcgndt-Zc-iunt-minerals 1 EACH tablet 1 ea PO DAILY cinnamon bark 500 MG capsule 1,000 mg PO 0800,1200 red yeast rice 600 MG capsule 600 mg PO 0800,1200 loratadine 10 MG tablet,disintegrating 10 mg PO DAILY amlodipine 5 mg tablet 7.5 mg PO DAILY omeprazole 20 mg capsule,delayed release(DR/EC) 20 mg PO DAILY Qty: 30 0RF fluconazole 150 mg tablet 150 mg PO ONCE Qty: 1 0RF Rx Instructions: as a single dose Primary Care Provider: Bassam Johnson Referrals: Bassam Johnson, [Primary Care Provider] - 3-5 Days if not improving Disposition Disposition: Home, Self Care
--- NOTE | 2022-11-16 20:39 | CM.ED ---
Social Work SW reviewed patient's chart for advanced directives documents. Patient has Living Will and HCPOA on file as of 2016. Patient's HCPOA listed on document are Eugene Ames and Yordan. Portia Avery MSW, JACKELYN
[2022-11-16] MEDS: Triamcinolone Acetonide 40 MG/ML Vial IM (21:02)
[2022-11-16 21:28] VITALS: RESP 18
== END 2022-11-16 21:30 | disposition home or self-care (01) ==
PROVIDERS: Emergency Provider Emergency Medicine; PCP Family Medicine; Visit Provider Emergency Medicine
DX: K42.9 Umbilical hernia without obstruction or gangrene (principal); I10 Essential (primary) hypertension; R10.33 Periumbilical pain; Z79.818 Long term (current) use of other agents affecting estrogen receptors and estrogen levels; J30.2 Other seasonal allergic rhinitis; Z79.52 Long term (current) use of systemic steroids
CPT/HCPCS: 99282; J7030; A4216

== ENCOUNTER 2022-12-22 05:53 | Day surgery (SDC) | payer MEDICARE, OTHER, SELFPAY ==
--- NOTE | 2022-12-15 13:12 | EKG12_ITS ---
Test Reason : PREOP Blood Pressure : / mmHG Vent. Rate : 056 BPM Atrial Rate : 056 BPM P-R Int : 118 ms QRS Dur : 092 ms QT Int : 454 ms P-R-T Axes : 035 -25 -21 degrees QTc Int : [address] & T wave abnormality, consider inferior ischemia Abnormal ECG Confirmed by BRAXTON KATHLEEN, CEE ([id number]), greeting card editor CHRISTY TOVAR ([id number]) on 12/16/2022 9:51:32 AM Referred By: Loli Chan Confirmed By:LATASHA LIMON MD
[2022-12-22] VITALS (7 sets, daily range): BP systolic 117–130; BP diastolic 53–61; PULSE 56–82; RESP 16–18; TEMP 36.1–36.6; O2SAT 93–98; BMI 26.3
[2022-12-22] MEDS: Lactated Ringers 1,000 ML 15 ML IV (06:35)
--- NOTE | 2022-12-22 07:05 | PCM.HP.STD ---
HPI - General General Date of Service: 12/22/22 HPI Narrative KATHIE PALUMBO, is a 72 F who presents for umbilical hernia repair possible mesh. Patient states since her appointment on 11/21/2022 she has had a couple times where it has been a little more discomfort at her umbilicus and she did work and reduce it back in her abdomen. office visit 11/21/22 HPI HPI: 72-year-old female presents to discuss umbilical hernia again.? Patient was previously seen in May 2022 for this at that time she decided to continue to monitor.? Patient did go to the ER on Monday due to upper back pain she was diagnosed with periscapular pain and given a shot of Kenalog.? Patient states also during this time she did have some pain in her midline go towards her umbilicus and then to the left of the umbilicus.? Patient states that she still been able to push her hernia back in denies any pain directly at her hernia.? Patient thinks it may be time to have it repaired. [facility] Medical History (Updated 12/14/22 @ 14:29 by Kacy Mackay) Anxiety Arthritis Back pain cataract surgery (~2015) Cystitis Dietary restriction Difficulty balancing Gastric reflux H/O vaginal delivery Hay fever Heart disease History of edema Hypertension Neck pain Non-smoker Post-menopausal Seasonal allergies Shoulder pain Wears glasses Wears partial dentures Home Medications calcium carbonate 600 mg calcium (1,500 mg) tablet 1,200 mg PO DAILY supplement 01/24/17 [History Last Taken 11/22/21] cholecalciferol (vitamin D3) 25 mcg (1,000 unit) capsule 1,000 unit PO 0800,1200 supplement 01/24/17 [History Last Taken 11/22/21] cinnamon bark 500 mg capsule 1,000 mg PO 0800,1200 supplement 01/24/17 [History Last Taken 11/22/21] lorazepam 0.5 mg tablet 0.5 - 1 mg PO DAILY PRN PRN Anxiety 01/24/17 [History Last Taken 12/22/22] zpolcdaapipt-Xl-ztzx-minerals 1 ea PO DAILY supplement 01/24/17 [History Last Taken 11/22/21] red yeast rice 600 mg capsule 600 mg PO 0800,1200 supplement 01/24/17 [History Last Taken 11/22/21] conjugated estrogens 0.625 mg/gram vaginal cream (Premarin) 0.625 mg vaginal MOFR Check with primary doctor 08/25/20 [History Last Taken 11/19/21] fluticasone propionate 50 mcg/actuation nasal spray,suspension 1 spray intranasal DAILY allergies 08/25/20 [History Last Taken 11/22/21] famotidine 20 mg tablet (Pepcid) 20 mg PO DAILY PRN GERD 08/12/21 [History Last Taken Unknown] ascorbic acid (vitamin C) 1,000 mg tablet 1 g PO DAILY supplement 08/26/21 [History Last Taken 11/22/21] amlodipine 5 mg tablet 7.5 mg PO DAILY hypertension 05/09/22 [History Last Taken 12/22/22] lisinopril 10 mg tablet 10 mg PO DAILY 05/09/22 [History Last Taken 12/22/22] omeprazole 20 mg capsule,delayed release 20 mg PO DAILY #30 CAPSULES 09/22/22 [Rx Last Taken Unknown] loratadine 10 mg tablet (Claritin) 10 mg PO DAILY 12/14/22 [History Last Taken Unknown] peg [id number]-vijhmpog 1 %-0.2 %-0.2 % eye drops (Dry Eye Relief) 1 drp EACH EYE BID PRN Dry Eyes 12/14/22 [History Last Taken Unknown] Allergy/AdvReac Type Severity Reaction Status Date / Time cyclobenzaprine Allergy Mild other Verified 12/22/22 06:21 oxycodone [From Percocet] AdvReac DIZZY,LIGHT Verified 12/22/22 06:21 HEADNESS Family History Other Diabetes Heart disease Hypertension Surgical History (Updated 12/14/22 @ 14:29 by Kacy Mackay) History of carpal tunnel release of both wrists (~2016) Hx of bilateral cataract extraction Social History Smoking Status: Never smoker alcohol intake: never substance use type: does not use caffeine: Yes what type of physical activity do you participate in: walking frequency: 5-6 times per week seatbelt use: always do you feel safe at home: Yes additional social history: Kwaku- Vital Signs Vital Signs Vital Signs: 12/22/22 06:25 12/22/22 06:25 Temperature 97.9 F Temperature Source Temporal Pulse Rate 56 L Respiratory Rate 16 Respiratory Pattern Normal Blood Pressure 128/53 H Blood Pressure Mean 78 Blood Pressure Source Monitor Blood Pressure Position Semi-Fowlers Blood Pressure Location Right Arm Pulse Ox 97 Oxygen Delivery Method Room Air Weight Weight: 134 lb 14.766 oz Body Mass Index (BMI) 26.3 Physical Exam Const alert, oriented x3 and no apparent distress HEENT normocephalic and head/scalp atraumatic Resp normal respiratory effort Cardio regular rate GI soft to palpation and non-tender; Negative for non-distended GI Narrative: Umbilical hernia?reducible Palpation: Negative for guarding Extremity no clubbing, cyanosis or edema Neuro CN's II-XII intact bilaterally Psych mental status grossly normal Assessment & Plan Assessment/Plan (1) Umbilical hernia: PLAN: Plan Plan to do an umbilical hernia repair with possible mesh. Reviewed the procedure with the patient including the risks, including but not limited to infection, bleeding, injury to the small bowel, and recurrence. All questions were answered. Loli Chan M.D. Pager: [phone] [facility] [address] [place] [address], [address] [place] [address] Office: [phone]
[2022-12-22] MEDS: Cefazolin 2 GM in 0.9% Normal Saline 100 ML IV (07:36)
[2022-12-22] MEDS: Bupivacaine Mpf 0.5% 30 ML VIAL (07:41)
--- NOTE | 2022-12-22 08:06 | PCM.OPRPT ---
Report of Operation Date of Procedure: 12/22/22 Pre-Operative Diagnosis: Umbilical hernia Post-Operative Diagnosis: Same Surgery/Procedure Performed:: Umbilical hernia pair with mesh Surgeon: Loli Chan Type of Anesthesia: General/Supplemental Anesthesiologist: Hossein Bullard Special Medications: Ancef 2 g IV x1 Estimated Blood Loss (mL): < 10 cc Description of Procedure: Patient was brought into the room placed supine on the operating table. Correct patient, procedure, site, positioning, special, was verified prior to procedure. General anesthesia was induced. The abdomen was prepped draped in usual sterile fashion. A curvilinear incision was made above the umbilicus with a 15 blade scalpel. This was deepened with electrocautery. A hemostat was used to go around the stalk of the umbilicus and Metzenbaum scissors was used to carefully divide the hernia sac from the skin of the umbilicus. The fascia around the hernia defect was cleared and the hernia defect measured 1.2 cm x 1.[address] hernia patch 4.3 cm was selected. This was secured laterally at its tails with 0 Prolene horizontal mattress suture. The hernia defect was closed with a [id number] 0 Prolene. The wound was irrigated with saline. Hemostasis was assured. The skin of the umbilicus was secured to the fascia using 3-0 Vicryl suture interrupted. The incision was closed with 3-0 Vicryl subdermal interrupted sutures and the skin was closed with interrupted 4-0 Monocryl sutures. Steri-Strips and Tegaderm and OpSite were placed over the incision once sterile cotton balls were placed in the umbilicus. Patient was extubated. Patient tolerated procedure well and was taken to the postanesthesia care unit in stable condition. Grafts/Implants Used: Ventralex ST 4.3 cm hernia patch-- Lot [id number] ref [id number] Complications none
--- NOTE | 2022-12-22 08:09 | DCINST_ITS ---
Discharge Instructions Diet Discharge Diet: Light diet - advance as tolerated Activity May shower in (days): 5 (Keep umbilical dressing clean dry and intact for 5 days. Okay to tape off with a Ziploc bag to shower. Or lower shower and upper sponge bath.) Lifting Restrictions: no lifting >20 lbs x 2 wks, no strenuous exercise for 4 wks Additional Activity Instructions:: - Dressing / Incision Call your doctor if your incision/area has: Continuous Slow Oozing, Sudden Increased Bleeding, Increased Pain/ Swelling, Increased Redness, Foul Smelling Discharge and Swelling at the incision site Call your doctor if you observe: Fever of 101 or Higher Remove Dressing in: 5 days (After 5 days okay to remove surgical dressing. Place cotton ball or rolled up gauze in bellybutton and retape daily for 2 more days.) Cleanse incision/area with: Do not get Incision Wet (for 5 days) Additional Dressing/Incision Instructions:: Steri-Strips will fall off in 7 to 10 days, if they do not fall off okay to remove after 10 days. Follow Up Care Please Follow Up With: Loli Chan MD When: Call the office for a follow-up appointment 2 weeks; after 5 PM and on the weekends call [phone] with any concerns. Test Results: Test results from this visit will be discussed in further detail at your follow- up appointment, if applicable. Discharge Plan Admission Attending Provider: Loli Chan Primary Care Provider: Bassam Johnson Discharge Orders/Prescriptions Prescriptions: New tramadol 50 mg tablet 50 mg PO Q6H PRN (Reason: pain) 3 Days Qty: 10 0RF Continued fluticasone propionate 50 mcg/actuation spray,suspension 1 spray INTRANASAL DAILY Rx Instructions: administer into each nostril Premarin 0.625 mg/gram cream 0.625 mg VAGINAL MOFR Rx Instructions: off 5 days; repeat cycle ascorbic acid (vitamin C) 1,000 mg tablet 1 g PO DAILY famotidine [Pepcid] 20 mg tablet 20 mg PO DAILY PRN (Reason: GERD) lisinopril 10 mg tablet 10 mg PO DAILY calcium carbonate 600 MG tablet 1,200 mg PO DAILY lorazepam 0.5 MG tablet 0.5 - 1 mg PO DAILY PRN PRN (Reason: Anxiety) cholecalciferol (vitamin D3) 1,000 UNIT capsule 1,000 unit PO 0800,1200 pqhyknglqjxn-Wk-jjky-minerals 1 EACH tablet 1 ea PO DAILY cinnamon bark 500 MG capsule 1,000 mg PO 0800,1200 red yeast rice 600 MG capsule 600 mg PO 0800,1200 amlodipine 5 mg tablet 7.5 mg PO DAILY omeprazole 20 mg capsule,delayed release(DR/EC) 20 mg PO DAILY Qty: 30 0RF loratadine [Claritin] 10 mg Tablet 10 mg PO DAILY Dry Eye Relief 1-0.2-0.2 % Drops 1 drp EACH EYE BID PRN (Reason: Dry Eyes) Referrals / Follow Up: Bassam Johnson DO [Primary Care Provider] - Disposition Disposition (needs filled in before D/C Order can be placed): Home, Self Care
== END 2022-12-22 11:10 | disposition home or self-care (01) ==
LOC: SDC 05:53 → AC 05:54
PROVIDERS: PCP Family Medicine; Referring Provider Surgery; Visit Provider Surgery
PROC: (CPT 49591; principal; 2022-12-22 07:15)
DX: K42.9 Umbilical hernia without obstruction or gangrene (principal); I10 Essential (primary) hypertension; K21.9 Gastro-esophageal reflux disease without esophagitis
CPT/HCPCS: 49591; 00830; 93005; J7120; C1781; J2405

== ENCOUNTER → 2023-01-06 | Outpatient (CLI) | payer MEDICARE, OTHER, SELFPAY ==
[2023-01-06 16:17] LABS: Color, Urine Yellow (Yellow); Glucose, Dipstick Normal (Normal); Ketone-Dipstick Negative (Negative); Leukocyte Esterase-Dipstick 500 /ul (Negative); Nitrite-Dipstick Negative (Negative); Occult Blood-Urine 10 /ul (Negative); Protein-Dipstick 15 mg/dl (Negative); Specific Gravity, Urine 1.015 (1.002-1.030); Urine Bilirubin Dipstick Negative (Negative); Urine Clarity Sl. Cloudy (Clear); Urine Urobilinogen Normal (Normal)
== END | disposition home or self-care (01) ==
LOC: LAB 15:10
PROVIDERS: PCP Family Medicine; Referring Provider Family Medicine; Visit Provider Family Medicine
DX: R82.79 Other abnormal findings on microbiological examination of urine (principal); R30.0 Dysuria
CPT/HCPCS: 81002; 87077; 87086; 87088; 87186

== ENCOUNTER → 2023-04-24 | Outpatient (CLI) | payer MEDICARE, OTHER, SELFPAY ==
[2023-04-24 17:49] LABS: Hematocrit 32.9 % (37-47); Hemoglobin 10.9 g/dL (12.0-15.0); Mean Corp Hgb Conc 33.1 g/dL (32-36); Mean Corpuscular Hgb 31.8 pg (27.0-32.0); Mean Corpuscular Volume 95.9 fL (81-99); Mean Platelet Vol. 9.4 fl (6.2-12.0); Platelet Count 349 K/mm3 (150-450); RBC Distribution Width CV 12.8 % (11.6-14.6); RBC Distribution Width SD 44.6 fl (35.1-43.9); Red Blood Count 3.43 M/mm3 (4.2-5.4); White Blood Count 6.1 K/mm3 (4.4-11.0)
[2023-04-24 18:36] LABS: Anion Gap 2 (5-15); BUN 18 mg/dL (7-18); BUN/Creat Ratio 14.8 RATIO (10-20); Calcium,Total 8.7 mg/dL (8.5-10.1); Chloride 105 mmol/L (98-107); Creatinine, Serum 1.22 mg/dL (0.55-1.02); EST Glomerular Filtration Rate 46 mL/min (>60); Est Glom Filt Rate - Afr Amer 55 mL/min (>60); Glucose 167 mg/dL (74-106); Potassium 4.1 mmol/L (3.5-5.1); Sodium Level 131 mmol/L (136-145)
== END | disposition home or self-care (01) ==
LOC: MTLAB 15:59
PROVIDERS: PCP Family Medicine; Referring Provider Urology; Visit Provider Urology
DX: R29.6 Repeated falls (principal)
CPT/HCPCS: 36415; 80048; 85027

== ENCOUNTER 2023-04-25 16:05 | Emergency (ER) | payer MEDICARE, OTHER, SELFPAY ==
[2023-04-25 16:06] VITALS: BP 149/78; PULSE 70; RESP 18; TEMP 36.6; O2SAT 98; BMI 26.7
--- NOTE | 2023-04-25 16:29 | EX.ED.DYSGE1 ---
HPI History of Present Illness Chief Complaint: General Illness Informant: patient Narrative Narrative: Patient presents with multiple concerns. She has some slight sinus pressure and is concerned that it may be secondary to a new higher fluoride based toothpaste that she is using. Last Monday evening she had a syncopal episode. She describes getting abdominal cramping and diarrhea after eating as well as feeling lightheaded and dizzy. She states when her found her she was up and dressed, but she has a bruise on her left shoulder and her forehead where she thinks she may have passed out and fall to the floor. She does not remember falling on the floor or getting up off the floor. She denies having chest pain or palpitations. She has not had any similar symptoms since that time. She also states that she saw Dr. Toussaint yesterday and had some blood work done. They advised her that her sodium level is low. [facility] Medical History Anxiety Arthritis Back pain cataract surgery (~2015) Cystitis Dietary restriction Difficulty balancing Gastric reflux H/O vaginal delivery Hay fever Heart disease History of edema Hypertension Neck pain Non-smoker Post-menopausal Seasonal allergies Shoulder pain Wears glasses Wears partial dentures Home Medications calcium carbonate 600 mg calcium (1,500 mg) tablet 1,200 mg PO DAILY supplement 01/24/17 [History Last Taken 11/22/21] cholecalciferol (vitamin D3) 25 mcg (1,000 unit) capsule 1,000 unit PO 0800,1200 supplement 01/24/17 [History Last Taken 11/22/21] cinnamon bark 500 mg capsule 1,000 mg PO 0800,1200 supplement 01/24/17 [History Last Taken 11/22/21] lorazepam 0.5 mg tablet 0.5 - 1 mg PO DAILY PRN PRN Anxiety 01/24/17 [History Last Taken 12/22/22] kpzpqrfujpoe-Km-gqcw-minerals 1 ea PO DAILY supplement 01/24/17 [History Last Taken 11/22/21] red yeast rice 600 mg capsule 600 mg PO 0800,1200 supplement 01/24/17 [History Last Taken 11/22/21] conjugated estrogens 0.625 mg/gram vaginal cream (Premarin) 0.625 mg vaginal MOFR Check with primary doctor 08/25/20 [History Last Taken 11/19/21] fluticasone propionate 50 mcg/actuation nasal spray,suspension 1 spray intranasal DAILY allergies 08/25/20 [History Last Taken 11/22/21] famotidine 20 mg tablet (Pepcid) 20 mg PO DAILY PRN GERD 08/12/21 [History Last Taken Unknown] ascorbic acid (vitamin C) 1,000 mg tablet 1 g PO DAILY supplement 08/26/21 [History Last Taken 11/22/21] amlodipine 5 mg tablet 7.5 mg PO DAILY hypertension 05/09/22 [History Last Taken 12/22/22] lisinopril 10 mg tablet 10 mg PO DAILY 05/09/22 [History Last Taken 12/22/22] omeprazole 20 mg capsule,delayed release 20 mg PO DAILY #30 CAPSULES 09/22/22 [Rx Last Taken Unknown] loratadine 10 mg tablet (Claritin) 10 mg PO DAILY 12/14/22 [History Last Taken Unknown] peg [id number] 1 %-0.2 %-0.2 % eye drops (Dry Eye Relief) 1 drp EACH EYE BID PRN Dry Eyes 12/14/22 [History Last Taken Unknown] cephalexin 500 mg capsule 500 mg PO BID 01/12/23 [History Last Taken Unknown] Allergy/AdvReac Type Severity Reaction Status Date / Time cyclobenzaprine Allergy Mild other Verified 04/25/23 16:15 oxycodone [From Percocet] AdvReac DIZZY,LIGHT Verified 04/25/23 16:15 HEADNESS Family History Other Diabetes Heart disease Hypertension Surgical History History of carpal tunnel release of both wrists (~2016) History of umbilical hernia repair (~12/2022) Hx of bilateral cataract extraction Social History Smoking Status: Never smoker alcohol intake: never substance use type: does not use caffeine: Yes what type of physical activity do you participate in: walking frequency: 5-6 times per week seatbelt use: always do you feel safe at home: Yes additional social history: [place]- ROS ROS ED Constitutional Constitutional ED: Denies chills or fever(s) Eyes Eyes: Denies change in vision or discharge from eye(s) ENT ENT ED: Denies discharge from eye(s), rhinorrhea or sore throat Cardiovascular Cardiovascular: Denies chest pain or palpitations Respiratory/Chest Respiratory/Chest: Denies cough or dyspnea Gastrointestinal Gastrointestinal: Reports abdominal pain and diarrhea; Denies nausea or vomiting Genitourinary Genitourinary ED: Denies difficulty urinating or dysuria Musculoskeletal Musculoskeletal: Denies back pain or extremity pain Integumentary Reports other Details: Ecchymosis left shoulder ; Denies Abrasions or rash Neurologic Neurologic: Denies headache(s) or weakness Psychiatric Psychiatric: Denies anxiety or depression Allergic/Immunologic Allergic/Immunologic ED: Denies lip swelling or urticaria EXAM Physical Exam Const Vital Signs: 04/25/23 16:06 04/25/23 16:16 Temperature 98 F Temperature Source Temporal Pulse Rate 70 Respiratory Rate 18 Respiratory Effort Normal Non-Labored Respiratory Pattern Normal Blood Pressure 149/78 H Blood Pressure Mean 101 Pulse Ox 98 Oxygen Delivery Method Room Air Positive well nourished and well developed General Appearance ED: well developed HEENT Reports normocephalic and head/scalp atraumatic Eyes PERRL and EOMs intact bilaterally Neck supple Chest Wall inspection of chest normal and palpation of chest normal Resp normal respiratory effort and clear to auscultation bilaterally Cardio regular rate and regular rhythm GI normal to inspection, nondistended, normoactive bowel sounds Palpation: soft Extremity normal to inspection Neuro oriented x3 and no sensory deficits noted Sensorium / Orientation: alert Motor Exam: strength 5/5 throughout Psych mental status grossly normal Skin Skin Narrative: Small old appearing ecchymosis to the left shoulder. No bony tenderness. MDM MDM MDM Narrative Medical decision making narrative: Patient placed on marble polisher hand. EKG obtained to evaluate for cardiac arrhythmia/ischemia. Patient's sodium yesterday was 131. She will be given a 500 cc normal saline bolus and a repeat BMP obtained at this time. History & Record Review Discussion w/independent historian: Patient and Significant other Additional record(s) reviewed:: Prior labs Lab Data Attestation: I reviewed the patient's lab results. Labs: Laboratory Results - last 24 hr 04/25/23 16:38 Sodium 135 L Potassium 4.2 Chloride 104 Carbon Dioxide 25.0 Anion Gap 6 BUN 17 Creatinine 1.18 H Estim Creat Clear Calc 30.50 Est GFR (MDRD) Af Amer 58 L Est GFR (MDRD) Non-Af 48 L BUN/Creatinine Ratio 14.4 Glucose 105 Calcium 8.5 EKG Initial EKG: Attestation: I personally reviewed and interpreted this EKG as follows: Interpretation: Sinus Bradycardia (Sinus bradycardia 55 bpm. No acute ischemia.) Treatment and Re-Evaluation :: Patient's labs from yesterday were reviewed. Her sodium was low at 131 but she has had low sodiums in the past. She is given a 500 cc IV fluid bolus. Repeat BMP today reveals a sodium of 135 and creatinine 1.18. This is consistent with her baseline. EKG is sinus bradycardia 55 bpm. No acute ischemia. Patient's history is consistent with a vasovagal episode and I do not feel she needs hospital admission for further work-up. Test results are discussed with her and spouse at bedside. Return instructions given. Discharge Plan Triage Chief Complaint: General Illness ED Provider: Rachel Velez Dx/Rx/DC Orders Clinical Impression: Vasovagal syncope, Hyponatremia Instructions: ED Hyponatremia, ED Fainting, Vagal Reaction Prescriptions: No Action fluticasone propionate 50 mcg/actuation spray,suspension 1 spray INTRANASAL DAILY Rx Instructions: administer into each nostril Premarin 0.625 mg/gram cream 0.625 mg VAGINAL MOFR Rx Instructions: off 5 days; repeat cycle ascorbic acid (vitamin C) 1,000 mg tablet 1 g PO DAILY famotidine [Pepcid] 20 mg tablet 20 mg PO DAILY PRN (Reason: GERD) lisinopril 10 mg tablet 10 mg PO DAILY cephalexin 500 mg capsule 500 mg PO BID Patient Comments: TAKE 1 CAPSULE BY MOUTH TWICE A DAY calcium carbonate 600 MG tablet 1,200 mg PO DAILY lorazepam 0.5 MG tablet 0.5 - 1 mg PO DAILY PRN PRN (Reason: Anxiety) cholecalciferol (vitamin D3) 1,000 UNIT capsule 1,000 unit PO 0800,1200 ftptuyamggvo-Zj-fcpe-minerals 1 EACH tablet 1 ea PO DAILY cinnamon bark 500 MG capsule 1,000 mg PO 0800,1200 red yeast rice 600 MG capsule 600 mg PO 0800,1200 amlodipine 5 mg tablet 7.5 mg PO DAILY omeprazole 20 mg capsule,delayed release(DR/EC) 20 mg PO DAILY Qty: 30 0RF loratadine [Claritin] 10 mg Tablet 10 mg PO DAILY Dry Eye Relief 1-0.2-0.2 % Drops 1 drp EACH EYE BID PRN (Reason: Dry Eyes) Primary Care Provider: Bassam Johnson Referrals: Bassam Johnson DO [Primary Care Provider] - 1-2 Weeks Disposition Disposition: Home, Self Care
[2023-04-25] MEDS: 0.9% Normal Saline (500mL Bag) 500 ML 1000 ML IV (16:51)
[2023-04-25 17:05] LABS: Anion Gap 6 (5-15); BUN 17 mg/dL (7-18); BUN/Creat Ratio 14.4 RATIO (10-20); Calcium,Total 8.5 mg/dL (8.5-10.1); Chloride 104 mmol/L (98-107); Creatinine, Serum 1.18 mg/dL (0.55-1.02); EST Glomerular Filtration Rate 48 mL/min (>60); Est Glom Filt Rate - Afr Amer 58 mL/min (>60); Glucose 105 mg/dL (74-106); Potassium 4.2 mmol/L (3.5-5.1); Sodium Level 135 mmol/L (136-145)
[2023-04-25 18:01] VITALS: BP 146/68; PULSE 58; RESP 16; O2SAT 100
== END 2023-04-25 18:05 | disposition home or self-care (01) ==
PROVIDERS: Emergency Provider Emergency Medicine; PCP Family Medicine; Visit Provider Emergency Medicine
DX: R55 Syncope and collapse (principal); E87.1 Hypo-osmolality and hyponatremia; I10 Essential (primary) hypertension; F41.9 Anxiety disorder, unspecified; K21.9 Gastro-esophageal reflux disease without esophagitis; Z79.899 Other long term (current) drug therapy; Z98.41 Cataract extraction status, right eye; Z98.42 Cataract extraction status, left eye
CPT/HCPCS: 80048; 93005; 96360; 99285; J7040; A4216

== ENCOUNTER → 2023-05-17 | Outpatient (CLI) | payer MEDICARE, OTHER, SELFPAY ==
[2023-05-17 17:48] LABS: Sodium Level 136 mmol/L (136-145)
== END | disposition home or self-care (01) ==
LOC: MTLAB 16:15
PROVIDERS: PCP Family Medicine; Referring Provider Family Medicine; Visit Provider Family Medicine
DX: E87.1 Hypo-osmolality and hyponatremia (principal)
CPT/HCPCS: 36415; 84295

== ENCOUNTER → 2023-09-15 | Outpatient (CLI) | payer MEDICARE, OTHER, SELFPAY ==
--- NOTE | 2023-09-15 13:45 | BI_ITS ---
MAMMOGRAPHY - BILATERAL SCREENING REASON FOR EXAM: Female, 73 years old. Routine annual screening examination. PERTINENT HISTORY: Non-contributory. Remote right stereotactic breast biopsy. TECHNIQUE: Digital bilateral breast debbie (3D mammographic acquisition) in the CC and MLO projections. 2-D mediolateral oblique (MLO) and craniocaudad (CC) views of both breasts were obtained. CAD: Full Field Digital Mammography with Computer Added Detection was performed. COMPARISON: Comparison is made with prior study dated September 12, 2022 and September 08, 2021. FINDINGS: Breast Composition: There are scattered areas of fibroglandular density. There are no dominant masses or suspicious calcifications. Stable benign appearing bilateral axillary lymph nodes. A tissue clip marker is once again seen in the anterior upper lateral aspect of the right breast. No other significant abnormalities are identified. There has been no significant change since the prior study. BI/SCRN MAMM (CAD)W/DEBBIE BILAT IMPRESSION: Stable bilateral screening mammogram. Yearly follow-up mammogram recommended. (A) ASSESSMENT CATEGORY: BIRADS Category 2: Benign. A letter regarding these results will be sent to the patient by the facility within 30 days. Approximately 10% of breast cancers are not detected by mammography. A normal mammogram should not delay biopsy of a clinically suspicious abnormality. [id number] Electronically Signed: Everardo Ann MD at 14:23 EDT ,
== END | disposition home or self-care (01) ==
LOC: OPBI 13:43
PROVIDERS: PCP Family Medicine; Referring Provider Obstetrics & Gynecology; Visit Provider Obstetrics & Gynecology
DX: Z12.31 Encounter for screening mammogram for malignant neoplasm of breast (principal)
CPT/HCPCS: 77063; 77067

== ENCOUNTER → 2023-11-06 | Outpatient (CLI) | payer MEDICARE, OTHER, SELFPAY ==
--- NOTE | 2023-11-06 14:08 | US_ITS ---
STUDY: ULTRASOUND OF THE FEMALE PELVIS - COMPLETE REASON FOR EXAM: Female, 73 years old. Left ovarian cyst. LMP: The patient is postmenopausal. TECHNIQUE: Transabdominal and Transvaginal TECHNICAL QUALITY: Adequate. COMPARISON: Comparison is made with prior study of September 29, 2022. FINDINGS: The uterus is retroflexed and is in a midline position. The uterus measures 5.9 cm x 4.2 cm x 3.2 cm. There is a Nabothian cyst of the cervix. The endometrium measures 2.1 mm in thickness, and is heterogeneous (striated). There is no demonstrated endometrial mass. There is no demonstrated myometrial mass. I.U.D. - The patient does not have an I.U.D. The right ovary is visualized. The right ovary measures 1.8 cm x 1.9 cm x 1.5 cm. There is no right ovarian cyst or ovarian mass. There is no visualized right adnexal mass or complex lesion. There is normal arterial and normal venous vascularity. The left ovary is visualized. The left ovary measures 3.8 cm x 3.5 cm x 2.8 cm. There is a simple left ovarian cyst measuring 3 cm x 3 cm x 2.2 centimeter. There is no visualized left adnexal mass or complex lesion. There is normal arterial and normal venous vascularity. There is no fluid in the cul-de-sac. The pre void volume of the bladder was 112 ml. US/Pelvic w/ Transvaginal IMPRESSION: Stable 3 cm x 3 cm x 2.2 cm left ovarian simple cyst. Electronically Signed: Everardo Ann MD at 14:13 EDT ,
== END | disposition home or self-care (01) ==
LOC: OPUS 14:08
PROVIDERS: PCP Family Medicine; Referring Provider Obstetrics & Gynecology; Visit Provider Obstetrics & Gynecology
DX: N83.202 Unspecified ovarian cyst, left side (principal)
CPT/HCPCS: 76830; 76856

== ENCOUNTER 2024-03-21 11:55 | Emergency (ER) | payer MEDICARE, OTHER, SELFPAY ==
[2024-03-21 11:55] VITALS: BP 154/63; PULSE 58; RESP 14; TEMP 36.3; O2SAT 100
--- NOTE | 2024-03-21 12:15 | EKG12_ITS ---
Test Reason : CP Blood Pressure : / mmHG Vent. Rate : 059 BPM Atrial Rate : 059 BPM P-R Int : 158 ms QRS Dur : 090 ms QT Int : 424 ms P-R-T Axes : 032 -21 014 degrees QTc Int : 419 ms Sinus bradycardia Minimal voltage criteria for LVH, may be normal variant ( R in aVL ) Borderline ECG Confirmed by Ignacio Peng ([id number]), manuscript editor CHRISTY TOVAR ([id number]) on 03/25/2024 10:48:43 AM Referred By: Confirmed By:Ignacio Peng
[2024-03-21 12:55] LABS: Absolute Lymphocyte Count 1.46 X10^3/uL (0.83-4.51); Absolute Neutrophil Count 6.1 X10^3/uL (2.0-7.7); Basophil# 0.08 X10^3/uL; Eosinophil# 0.12 X10^3/uL; Eosinophils% 1.4 % (0-5); Hematocrit 33.7 % (37-47); Hemoglobin 11.5 g/dL (12.0-15.0); Lymphocyte # 1.46 X10^3/ul (0.83-4.51); Lymphocyte % 17.5 % (19-41); Mean Corp Hgb Conc 34.1 g/dL (32-36); Mean Corpuscular Hgb 32.5 pg (27.0-32.0); Mean Corpuscular Volume 95.2 fL (81-99); Mean Platelet Vol. 9.1 fl (6.2-12.0); Monocyte# 0.58 X10^3/uL; NRBC Flagged by Analyzer 0 % (0-5); Neutrophil # 6.07 X10^3/uL (2.7-7.7); Neutrophil % 72.7 % (47-70); Platelet Count 339 K/mm3 (150-450); RBC Distribution Width CV 12.8 % (11.6-14.6); RBC Distribution Width SD 44.8 fl (35.1-43.9); Red Blood Count 3.54 M/mm3 (4.2-5.4); White Blood Count 8.3 K/mm3 (4.4-11.0)
[2024-03-21 13:33] LABS: AST(SGOT) 21 U/L (15-37); Alanine Aminotransfer ALT/SGPT 33 U/L (13-56); Albumin, Serum 3.7 g/dL (3.2-5.0); Alkaline Phosphatase 57 U/L (45-117); Anion Gap 5 (5-15); BUN 20 mg/dL (7-18); BUN/Creat Ratio 16.1 RATIO (10-20); Calcium,Total 9.4 mg/dL (8.5-10.1); Chloride 102 mmol/L (98-107); Creatinine, Serum 1.24 mg/dL (0.55-1.02); EST Glomerular Filtration Rate 45 mL/min (>60); Est Glom Filt Rate - Afr Amer 54 mL/min (>60); Globulin 3.7 g/dL (2.2-4.2); Glucose 132 mg/dL (74-106); Potassium 4.8 mmol/L (3.5-5.1); Protein, Total 7.4 g/dL (6.4-8.2); Sodium Level 133 mmol/L (136-145)
[2024-03-21 15:34] VITALS: BP 170/50; PULSE 96; RESP 16; TEMP 36.9; O2SAT 98
--- NOTE | 2024-03-21 16:24 | CT_ITS ---
STUDY: CT BRAIN WITHOUT CONTRAST REASON FOR EXAM: Female, 73 years old. Headache RADIATION DOSAGE (If Supplied By Facility): CTDIvol = ( 44.99 ) mGy, DLP = ( 745.49 ) mGycm TECHNIQUE: Transaxial CT imaging of the brain was performed without administration of intravenous contrast material. Individualized dose optimization techniques were used for this CT. COMPARISON: No relevant priors. FINDINGS: Normal soft tissue structures. Normal calvarium. Calcific plaquing of the cavernous carotids Mild cortical atrophy and periventricular white matter hypoattenuation most likely due to chronic small vessel ischemic changes . Normal basal ganglia and thalami. Normal brainstem. Normal cerebellum. There is no intracranial hemorrhage. There are no findings of an acute ischemic infarction. Normal visualized paranasal sinuses. CT/Brain/Head without Contrast IMPRESSION: Mild atrophy and periventricular white matter ischemic changes. No evidence for obstructive hydrocephalus mass or acute bleed Electronically Signed: Dennys Botello MD at 17:18 EDT ,
--- NOTE | 2024-03-21 16:33 | EX.ED.DYSGE1 ---
HPI History of Present Illness Chief Complaint: Headache Narrative Narrative: Chief complaint and HPI: Headache. 73-year-old female with history of HTN presents for evaluation of headache. Patient states that she developed a headache throughout the day today. She states that she took Tylenol but the headache progressively worsened. She states she was worried maybe she had a stroke because she had a headache which is why she presents today. She denies any vision changes, numbness/tingling, weakness, dysarthria, aphasia. Patient states her only symptom is a headache. She denies any fever, chills, chest pain, shortness of breath, abdominal pain, nausea, vomiting, dysuria. Patient states since being in the waiting room her headache is improving. She describes her headache as frontal and bandlike. Denies any trauma or hitting her head. No lightheadedness, syncope. Review of systems: See HPI Medications: As listed on the chart Allergies: As listed on the chart PFSH: Per chart Vital signs: As listed on the chart. Reviewed. Physical exam: Gen: A&O x3, NAD Head: Normocephalic, atraumatic Eyes: No sclera icterus, conjunctiva clear, PERRL, EOMI ENT: Tympanic membranes clear bilaterally without inflammation or signs of infection, moist mucous membranes, No facial asymmetry Neck: Trachea midline, No JVD CV: RRR, no murmurs, no peripheral edema Resp: Lungs CTA BL, no w/r/c GI: Abd soft, non-distended, non-tender, no r/r/g Musc: Full ROM, no deformity, strength +5/5 in all extremities, no pronator drift, no ataxia, DTR +2/5 Skin: Warm, dry, intact Neuro: Alert, oriented, grossly intact, sensation intact, no focal deficits, NIH 0 Psych: Cooperative, appropriate mood and affect [facility] Medical History Wears partial dentures Wears glasses Post-menopausal Anxiety Arthritis Dietary restriction Gastric reflux Non-smoker History of edema H/O vaginal delivery Cystitis cataract surgery (~2015) Back pain Neck pain Difficulty balancing Hay fever Seasonal allergies Heart disease Shoulder pain Hypertension Home Medications ?Medication ?Instructions ?Recorded ?Last Taken ?Type calcium carbonate 1,200 mg PO DAILY supplement 01/24/17 11/22/21 History cholecalciferol (vitamin D3) 25 1,000 unit PO 0800,1200 supplement 01/24/17 11/22/21 History mcg (1,000 unit) capsule cinnamon bark 500 mg capsule 1,000 mg PO 0800,1200 supplement 01/24/17 11/22/21 History lorazepam 0.5 mg tablet 0.5 - 1 mg PO DAILY PRN PRN Anxiety 01/24/17 12/22/22 History uzzsfrcmyreb-Kb-kjmg-minerals 1 ea PO DAILY supplement 01/24/17 11/22/21 History red yeast rice 600 mg capsule 600 mg PO 0800,1200 supplement 01/24/17 11/22/21 History conjugated estrogens 0.625 mg/gram 0.625 mg vaginal MOFR Check with 08/25/20 11/19/21 History vaginal cream (Premarin) primary doctor fluticasone propionate 50 1 spray intranasal DAILY allergies 08/25/20 11/22/21 History mcg/actuation nasal spray,suspension famotidine 20 mg tablet (Pepcid) 20 mg PO DAILY PRN GERD 08/12/21 Unknown History ascorbic acid (vitamin C) 1,000 mg 1 g PO DAILY supplement 08/26/21 11/22/21 History tablet amlodipine 5 mg tablet 7.5 mg PO DAILY hypertension 05/09/22 12/22/22 History lisinopril 10 mg tablet 10 mg PO DAILY 05/09/22 12/22/22 History peg [id number] 1 1 drp EACH EYE BID PRN Dry Eyes 12/14/22 Unknown History %-0.2 %-0.2 % eye drops (Dry Eye Relief) ferrous fumarate 63 mg (20 mg mg PO 10/20/23 Unknown History iron) tablet acetaminophen 500 mg tablet 1,000 mg PO BID 03/11/24 Unknown History (Tylenol Extra Strength) dexamethasone 0.1 % eye 1 drp ophthalmic (eye) BID 03/11/24 Unknown History drops,suspension loratadine 10 mg tablet (Claritin) 10 mg PO DAILY PRN 03/11/24 Unknown History prednisone 10 mg tablets in a dose 10 mg PO DIRECTED PRN 03/11/24 Unknown History pack Allergy/AdvReac Type Severity Reaction Status Date / Time cyclobenzaprine Allergy Mild other Verified 03/21/24 11:56 montelukast (From Singulair) Allergy PT UNSURE Verified 03/21/24 11:56 OF REACTION latex AdvReac irritation Verified 03/21/24 11:56 oxycodone (From Percocet) AdvReac DIZZY,LIGHT Verified 03/21/24 11:56 HEADNESS Family History Other Diabetes Heart disease Hypertension Surgical History History of umbilical hernia repair (~12/2022) Hx of bilateral cataract extraction History of carpal tunnel release of both wrists (~2016) Social History (Updated 03/11/24 @ 11:50 by Lakisha Ramirez) household members: spouse current occupational status: retired Smoking Status: Never smoker alcohol intake: never substance use type: does not use caffeine: Yes what type of physical activity do you participate in: walking frequency: 5-6 times per week seatbelt use: always do you feel safe at home: Yes additional social history: [place]- EXAM Physical Exam Const Vital Signs: 03/21/24 11:55 03/21/24 15:34 03/21/24 17:00 Temperature 97.3 F L 98.5 F Temperature Source Temporal Temporal Pulse Rate 58 L 96 71 Respiratory Rate 14 16 14 Blood Pressure 154/63 H 170/50 H 165/89 H Blood Pressure Mean 93 90 114 Pulse Ox 100 98 97 Oxygen Delivery Method Room Air Room Air Room Air 03/21/24 17:38 Temperature 98 F Temperature Source Pulse Rate 60 Respiratory Rate 14 Blood Pressure 157/54 H Blood Pressure Mean 88 Pulse Ox 99 Oxygen Delivery Method MDM MDM MDM Narrative Medical decision making narrative: 73-year-old female presents for evaluation of headache. On triage note they state that the patient was complaining of abdominal pain. Patient denies any abdominal pain any nausea or vomiting. States she was only here for headache. Denies acute onset of headache reaching maximal intensity in under one hour. This is neither the worst headache that they have ever experienced, nor was the onset timed with exertional activity or trauma. Patient has not experienced any fever, unusual neck pain or stiffness, syncope, or near syncope. They deny numbness, tingling, or weakness of the extremities. Differential diagnosis includes but is not limited to tension headache, migraine headache. Low suspicion for SAH. Not a stroke. Despite extensive discussion with the patient about the symptoms of stroke, patient is still worried and is requesting CT head. This was ordered. Patient does not want any narcotic pain medication. Will treat her headache with NS bolus, Tylenol, Zofran. Labs were drawn in triage and resulted by the time I saw the patient. CBC without leukocytosis patient has baseline anemia. Baseline mild hyponatremia and renal insufficiency. No transaminitis. I canceled her urine secondary to her having no urinary complaints, abdominal pain, nausea, vomiting, or lightheadedness. CT head without any acute intracranial abnormality. Patient has degenerative changes. On reexamination, patient is still hypertensive but asymptomatic. I do not think she needs any further management for this. She states her headache has improved and is minimal. Patient is stable to discharge home. Suspect possible tension headache. Tylenol as needed for pain. She was told to follow-up with her PCP. She confirmed understanding the plan. Patient was updated on all her results. Impression: 1. Headache, unspecified 2. Established HTN Lab Data Labs: Laboratory Results - last 24 hr 03/21/24 12:43 WBC 8.3 RBC 3.54 L Hgb 11.5 L Hct 33.7 L MCV 95.2 MCH 32.5 H MCHC 34.1 RDW Std Deviation 44.8 H RDW Coeff of Clay 12.8 Plt Count 339 MPV 9.1 Immature Gran % (Auto) 0.400 Neut % (Auto) 72.7 H Lymph % (Auto) 17.5 L [place] % (Auto) 7.0 Eos % (Auto) 1.4 Baso % (Auto) 1.0 Absolute Neuts (auto) 6.1 Absolute Lymphs (auto) 1.46 Nucleated RBC % 0 Sodium 133 L Potassium 4.8 Chloride 102 Carbon Dioxide 26.0 Anion Gap 5 BUN 20 H Creatinine 1.24 H Est GFR (MDRD) Af Amer 54 L Est GFR (MDRD) Non-Af 45 L BUN/Creatinine Ratio 16.1 Glucose 132 H Calcium 9.4 Total Bilirubin 0.30 AST 21 ALT 33 Alkaline Phosphatase 57 Total Protein 7.4 Albumin 3.7 Globulin 3.7 Albumin/Globulin Ratio 1.0 Radiography Diagnostic Testing: Clinical Impression(s) from Imaging Studies Brain CT 03/21/24 16:24 IMPRESSION: Mild atrophy and periventricular white matter ischemic changes. No evidence for obstructive hydrocephalus mass or acute bleed Electronically Signed: Dennys Botello MD at 17:18 EDT Reading Location ID and State: [facility] / [place] Tel , Service support , Discharge Plan Triage Chief Complaint: Headache Other Complaint: Abd Pain ED Provider: Jose Smith Dx/Rx/DC Orders Clinical Impression: Headache Instructions: Understanding Headache Pain Prescriptions: No Action fluticasone propionate 50 mcg/actuation spray,suspension 1 spray INTRANASAL DAILY Rx Instructions: administer into each nostril Premarin 0.625 mg/gram cream 0.625 mg VAGINAL MOFR Rx Instructions: off 5 days; repeat cycle ascorbic acid (vitamin C) 1,000 mg tablet 1 g PO DAILY famotidine [Pepcid] 20 mg tablet 20 mg PO DAILY PRN (Reason: GERD) lisinopril 10 mg tablet 10 mg PO DAILY ferrous fumarate 63 mg (20 mg iron) tablet PO prednisone 10 mg tablets,dose pack 10 mg PO DIRECTED PRN Rx Instructions: see taper instructions acetaminophen [Tylenol Extra Strength] 500 mg tablet 1,000 mg PO BID Rx Instructions: AM and HS dexamethasone 0.1 % drops,suspension 1 drp ophthalmic (eye) BID Rx Instructions: Both eyes calcium carbonate 600 MG tablet 1,200 mg PO DAILY lorazepam 0.5 MG tablet 0.5 - 1 mg PO DAILY PRN PRN (Reason: Anxiety) cholecalciferol (vitamin D3) 1,000 UNIT capsule 1,000 unit PO 0800,1200 obtifyithrqk-Ei-vgdh-minerals 1 EACH tablet 1 ea PO DAILY cinnamon bark 500 MG capsule 1,000 mg PO 0800,1200 red yeast rice 600 MG capsule 600 mg PO 0800,1200 amlodipine 5 mg tablet 7.5 mg PO DAILY Dry Eye Relief 1-0.2-0.2 % Drops 1 drp EACH EYE BID PRN (Reason: Dry Eyes) loratadine [Claritin] 10 mg tablet 10 mg PO DAILY PRN Primary Care Provider: Bassam Johnson Referrals: Bassam Johnson DO [Primary Care Provider] - 3-5 Days if not improving Print Language: Estonian Disposition Disposition: Home, Self Care Discharge Date/Time: 03/21/24 17:44
[2024-03-21] MEDS: Ondansetron 4 MG/2 ML Vial IV (16:35)
[2024-03-21] MEDS: 0.9% Normal Saline (1000mL) 1,000 ML 1000 ML IV (16:35)
[2024-03-21] MEDS: Acetaminophen 500 MG Tablet 1000 MG PO (16:35)
[2024-03-21 17:00] VITALS: BP 165/89; PULSE 71; RESP 14; O2SAT 97
[2024-03-21 17:38] VITALS: BP 157/54; PULSE 60; RESP 14; TEMP 36.6; O2SAT 99
== END 2024-03-21 17:44 | disposition home or self-care (01) ==
PROVIDERS: Emergency Provider Surgery; PCP Family Medicine; Visit Provider Surgery
DX: R51.9 Headache, unspecified (principal); I10 Essential (primary) hypertension; F41.9 Anxiety disorder, unspecified; K21.9 Gastro-esophageal reflux disease without esophagitis; Z79.899 Other long term (current) drug therapy; Z98.41 Cataract extraction status, right eye; Z98.42 Cataract extraction status, left eye
CPT/HCPCS: 70450; 80053; 85025; 93005; 96361; 96374; 99284; J2405

== ENCOUNTER 2024-03-31 12:37 | Emergency (ER) | payer MEDICARE, OTHER, SELFPAY ==
[2024-03-31 12:37] VITALS: BP 136/75; PULSE 61; RESP 16; TEMP 36.8; O2SAT 98; BMI 27.4
[2024-03-31 12:40] VITALS: BP 129/55; PULSE 60; RESP 17; TEMP 37.1; O2SAT 97
--- NOTE | 2024-03-31 13:13 | EDS_ITS ---
HPI History of Present Illness Chief Complaint: Complaint Informant: patient Onset/Context/Timing Onset: Days Context: Sudden Onset Timing: Continuous Quality: Burning Location: Vaginal area Worsened by: Urination Relieved by: Vagisil vaginal cream Narrative Narrative: Patient presents with urinary tract infection symptoms and vaginal candidiasis symptoms. Patient states that she saw Dr. Debora Morley last week. She ordered a urinalysis. She was also prescribed Diflucan to take initially and a repeat dose to take in 3 days if she was not feeling any better. Patient states she took the second dose 2 days later with no improvement. Patient describes her pain as burning. Patient states it is worse with urination. Patient states she used Vagisil vaginal cream which helped. Patient denies any fevers or chills. [facility] Medical History Wears partial dentures Wears glasses Post-menopausal Anxiety Arthritis Dietary restriction Gastric reflux Non-smoker History of edema H/O vaginal delivery Cystitis cataract surgery (~2015) Back pain Neck pain Difficulty balancing Hay fever Seasonal allergies Heart disease Shoulder pain Hypertension Home Medications ?Medication ?Instructions ?Recorded ?Last Taken ?Type calcium carbonate 1,200 mg PO DAILY supplement 01/24/17 11/22/21 History cholecalciferol (vitamin D3) 25 1,000 unit PO 0800,1200 supplement 01/24/17 11/22/21 History mcg (1,000 unit) capsule cinnamon bark 500 mg capsule 1,000 mg PO 0800,1200 supplement 01/24/17 11/22/21 History lorazepam 0.5 mg tablet 0.5 - 1 mg PO DAILY PRN PRN Anxiety 01/24/17 12/22/22 History rrodiinpdqsu-Pt-tgkn-minerals 1 ea PO DAILY supplement 01/24/17 11/22/21 History red yeast rice 600 mg capsule 600 mg PO 0800,1200 supplement 01/24/17 11/22/21 History conjugated estrogens 0.625 mg/gram 0.625 mg vaginal MOFR Check with 08/25/20 11/19/21 History vaginal cream (Premarin) primary doctor fluticasone propionate 50 1 spray intranasal DAILY allergies 08/25/20 11/22/21 History mcg/actuation nasal spray,suspension famotidine 20 mg tablet (Pepcid) 20 mg PO DAILY PRN GERD 08/12/21 Unknown History ascorbic acid (vitamin C) 1,000 mg 1 g PO DAILY supplement 08/26/21 11/22/21 History tablet amlodipine 5 mg tablet 7.5 mg PO DAILY hypertension 05/09/22 12/22/22 History lisinopril 10 mg tablet 10 mg PO DAILY 05/09/22 12/22/22 History peg [id number] 1 1 drp EACH EYE BID PRN Dry Eyes 12/14/22 Unknown History %-0.2 %-0.2 % eye drops (Dry Eye Relief) ferrous fumarate 63 mg (20 mg mg PO 10/20/23 Unknown History iron) tablet acetaminophen 500 mg tablet 1,000 mg PO BID 03/11/24 Unknown History (Tylenol Extra Strength) dexamethasone 0.1 % eye 1 drp ophthalmic (eye) BID 03/11/24 Unknown History drops,suspension loratadine 10 mg tablet (Claritin) 10 mg PO DAILY PRN 03/11/24 Unknown History prednisone 10 mg tablets in a dose 10 mg PO DIRECTED PRN 03/11/24 Unknown History pack amlodipine 2.5 mg tablet 2.5 mg PO DAILY 03/31/24 Unknown History cephalexin 500 mg capsule 500 mg PO Q6 #12 CAPSULES 03/31/24 Unknown Rx fluconazole 150 mg tablet 150 mg PO X1 #2 tabs 03/31/24 Unknown Rx Allergy/AdvReac Type Severity Reaction Status Date / Time cyclobenzaprine Allergy Mild other Verified 03/31/24 12:40 montelukast (From Singulair) Allergy PT UNSURE Verified 03/31/24 12:40 OF REACTION latex AdvReac irritation Verified 03/31/24 12:40 oxycodone (From Percocet) AdvReac DIZZY,LIGHT Verified 03/31/24 12:40 HEADNESS Family History Other Diabetes Heart disease Hypertension Surgical History History of umbilical hernia repair (~12/2022) Hx of bilateral cataract extraction History of carpal tunnel release of both wrists (~2016) Social History household members: spouse current occupational status: retired Smoking Status: Never smoker alcohol intake: never substance use type: does not use caffeine: Yes what type of physical activity do you participate in: walking frequency: 5-6 times per week seatbelt use: always do you feel safe at home: Yes additional social history: Amrita CHACKO ED Constitutional Constitutional ED: Denies chills or fever(s) Eyes Eyes: Denies blurry vision or change in vision ENT ENT ED: Reports sore throat; Denies rhinorrhea Cardiovascular Cardiovascular: Denies chest pain or palpitations Respiratory/Chest Respiratory/Chest: Denies cough or dyspnea Gastrointestinal Gastrointestinal: Denies nausea or vomiting Genitourinary Genitourinary ED: Reports dysuria; Denies hematuria Musculoskeletal Musculoskeletal: Denies back pain or neck pain Integumentary Denies abscess or rash Neurologic Neurologic: Reports headache(s); Denies weakness Allergic/Immunologic Allergic/Immunologic ED: Denies mouth swelling or urticaria EXAM Physical Exam Const Vital Signs: 03/31/24 12:37 03/31/24 12:40 Temperature 98.2 F 98.8 F Temperature Source Oral Oral Pulse Rate 61 60 Respiratory Rate 16 17 Blood Pressure 136/75 H 129/55 H Blood Pressure Mean 95 79 Pulse Ox 98 97 Oxygen Delivery Method Room Air Room Air Positive well nourished and well developed General Appearance ED: well developed and NAD HEENT Reports moist mucous membranes Neck supple and no JVD Resp normal respiratory effort and clear to auscultation bilaterally Cardio regular rate and regular rhythm GI non-tender and non-distended Palpation: soft Neuro oriented x3, CN's II-XII intact bilaterally and no sensory deficits noted Sensorium / Orientation: alert Motor Exam: strength 5/5 throughout Psych mental status grossly normal MDM MDM MDM Narrative Medical decision making narrative: Differential diagnosis includes urinary tract infection, vaginal candidiasis, and pyelonephritis. CBC will be obtained to assess for leukocytosis and anemia. Basic metabolic profile will be obtained to assess for electrolyte abnormality and renal function. Urinalysis will be obtained to assess for urinary tract infection and hematuria. Urine culture will be obtained to assess for urinary tract infection. History & Record Review Additional record(s) reviewed:: Prior labs Lab Data Attestation: I reviewed the patient's lab results. Lab results narrative: CBC was reviewed. There is a mild anemia with a hemoglobin of 11.0 and hematocrit of 31.5. Basic metabolic profile was reviewed. BUN was 23 and creatinine was 1.33. These are consistent with previous results. Urinalysis was reviewed. There is leukocyte Estrace of 500 with greater than 100 white blood cells. There are 10-25 squamous epithelial cells and 5-10 renal epithelial cells. There is 3+ bacteria. Labs: Laboratory Results - last 24 hr 03/31/24 03/31/24 13:30 13:50 WBC 7.8 RBC 3.36 L Hgb 11.0 L Hct 31.5 L MCV 93.8 MCH 32.7 H MCHC 34.9 RDW Std Deviation 43.7 RDW Coeff of [place] 12.8 Plt Count 319 MPV 9.1 Immature Gran % (Auto) 0.500 Neut % (Auto) 66.4 Lymph % (Auto) 22.3 [place] % (Auto) 7.3 Eos % (Auto) 2.2 Baso % (Auto) 1.3 H Absolute Neuts (auto) 5.2 Absolute Lymphs (auto) 1.74 Nucleated RBC % 0 Sodium 134 L Potassium 4.2 Chloride 102 Carbon Dioxide 25.0 Anion Gap 7 BUN 23 H Creatinine 1.33 H Estim Creat Clear Calc 32.26 Est GFR (MDRD) Af Amer 50 L Est GFR (MDRD) Non-Af 41 L BUN/Creatinine Ratio 17.3 Glucose 132 H Calcium 8.8 Urine Color Yellow Urine Clarity Cloudy Urine pH 6.0 Ur Specific [place] 1.010 Urine Protein 30 H Urine Glucose (UA) Normal Urine Ketones Negative Urine Occult Blood 10 H Urine Nitrite Negative Urine Bilirubin Negative Urine Urobilinogen Normal Ur Leukocyte Esterase 500 H Urine RBC 0 SEEN Urine WBC >100 SEEN Ur Squamous Epith Cells 10-25 SEEN Ur Renal Epithelial Cell 5-10 SEEN Urine Bacteria 3+ Urine Mucus 0 SEEN Treatment and Re-Evaluation :: Prior urine cultures were reviewed. Previous urine cultures grew E. coli. Most recent culture was sensitive to everything. Patient was advised of her findings. Patient was given a dose of Rocephin here. Patient was given a prescription for Keflex. Patient was also given prescription for Diflucan to take when her antibiotics are finished. Patient was instructed to follow-up with her urologist in 3 to 5 days. Patient was instructed to return if worse in any way. Patient understood and was agreeable with the plan. All questions were answered. Discharge Plan Triage Chief Complaint: Complaint ED Provider: Hossein North Dx/Rx/DC Orders Clinical Impression: Urinary tract infection, Elevated blood pressure reading Instructions: ED Cystitis Female Adult Prescriptions: New cephalexin 500 mg capsule 500 mg PO Q6 Qty: 12 0RF Changed fluconazole 150 mg tablet 150 mg PO X1 Qty: 2 0RF Rx Instructions: Take 1 tablet after completing your antibiotics. May repeat in 3 days if no improvement No Action fluticasone propionate 50 mcg/actuation spray,suspension 1 spray INTRANASAL DAILY Rx Instructions: administer into each nostril Premarin 0.625 mg/gram cream 0.625 mg VAGINAL MOFR Rx Instructions: off 5 days; repeat cycle ascorbic acid (vitamin C) 1,000 mg tablet 1 g PO DAILY famotidine [Pepcid] 20 mg tablet 20 mg PO DAILY PRN (Reason: GERD) lisinopril 10 mg tablet 10 mg PO DAILY ferrous fumarate 63 mg (20 mg iron) tablet PO prednisone 10 mg tablets,dose pack 10 mg PO DIRECTED PRN Rx Instructions: see taper instructions acetaminophen [Tylenol Extra Strength] 500 mg tablet 1,000 mg PO BID Rx Instructions: AM and HS dexamethasone 0.1 % drops,suspension 1 drp ophthalmic (eye) BID Rx Instructions: Both eyes calcium carbonate 600 MG tablet 1,200 mg PO DAILY lorazepam 0.5 MG tablet 0.5 - 1 mg PO DAILY PRN PRN (Reason: Anxiety) cholecalciferol (vitamin D3) 1,000 UNIT capsule 1,000 unit PO 0800,1200 tiqgjphhekkm-Qw-zwdq-minerals 1 EACH tablet 1 ea PO DAILY cinnamon bark 500 MG capsule 1,000 mg PO 0800,1200 red yeast rice 600 MG capsule 600 mg PO 0800,1200 amlodipine 5 mg tablet 7.5 mg PO DAILY Dry Eye Relief 1-0.2-0.2 % Drops 1 drp EACH EYE BID PRN (Reason: Dry Eyes) loratadine [Claritin] 10 mg tablet 10 mg PO DAILY PRN amlodipine 2.5 mg tablet 2.5 mg PO DAILY Primary Care Provider: Bassam Johnson Referrals: Bassam Johnson DO [Primary Care Provider] - 3-5 Days Debora Toussaint MD [Med Staff - Active Staff] - 3-5 Days Print Language: Chinese Disposition Disposition: Home, Self Care
[2024-03-31 13:47] LABS: Mucous, Urine 0 SEEN /hpf (<or=2+); Red Blood Cells-Urine 0 SEEN /hpf (0-5)
[2024-03-31 13:50] LABS: Color, Urine Yellow (Yellow); Glucose, Dipstick Normal (Normal); Ketone-Dipstick Negative (Negative); Leukocyte Esterase-Dipstick 500 /ul (Negative); Nitrite-Dipstick Negative (Negative); Occult Blood-Urine 10 /ul (Negative); Protein-Dipstick 30 mg/dl (Negative); Urine Bilirubin Dipstick Negative (Negative); Urine Clarity Cloudy (Clear); Urine Urobilinogen Normal (Normal)
[2024-03-31 13:59] LABS: Bacteria 3+ /hpf (None Seen); Renal Epithelial Cells 5-10 SEEN /hpf (0-5); Squamous Epithelial Cells - UA 10-25 SEEN /hpf (5-10); White Blood Cells >100 SEEN /hpf (0-5)
[2024-03-31 14:02] LABS: Absolute Lymphocyte Count 1.74 X10^3/uL (0.83-4.51); Absolute Neutrophil Count 5.2 X10^3/uL (2.0-7.7); Basophil% 1.3 % (0-1); Eosinophil# 0.17 X10^3/uL; Eosinophils% 2.2 % (0-5); Hematocrit 31.5 % (37-47); Lymphocyte # 1.74 X10^3/ul (0.83-4.51); Lymphocyte % 22.3 % (19-41); Mean Corp Hgb Conc 34.9 g/dL (32-36); Mean Corpuscular Hgb 32.7 pg (27.0-32.0); Mean Corpuscular Volume 93.8 fL (81-99); Mean Platelet Vol. 9.1 fl (6.2-12.0); Monocyte# 0.57 X10^3/uL; Monocyte% 7.3 % (0-10); NRBC Flagged by Analyzer 0 % (0-5); Neutrophil % 66.4 % (47-70); Platelet Count 319 K/mm3 (150-450); RBC Distribution Width CV 12.8 % (11.6-14.6); RBC Distribution Width SD 43.7 fl (35.1-43.9); Red Blood Count 3.36 M/mm3 (4.2-5.4); White Blood Count 7.8 K/mm3 (4.4-11.0)
[2024-03-31 14:10] LABS: Anion Gap 7 (5-15); BUN 23 mg/dL (7-18); BUN/Creat Ratio 17.3 RATIO (10-20); Calcium,Total 8.8 mg/dL (8.5-10.1); Chloride 102 mmol/L (98-107); Creatinine, Serum 1.33 mg/dL (0.55-1.02); EST Glomerular Filtration Rate 41 mL/min (>60); Est Glom Filt Rate - Afr Amer 50 mL/min (>60); Estimated Creatinine Clearance 32.26 ml/min; Glucose 132 mg/dL (74-106); Potassium 4.2 mmol/L (3.5-5.1); Sodium Level 134 mmol/L (136-145)
[2024-03-31 14:37] VITALS: BP 142/81; PULSE 61; RESP 18; O2SAT 98
[2024-03-31] MEDS: Ceftriaxone 1 GM/50 ML BAG IV (14:49)
[2024-03-31 14:51] VITALS: BP 142/81; PULSE 60; RESP 17; TEMP 36.8; O2SAT 99
== END 2024-03-31 15:04 | disposition home or self-care (01) ==
PROVIDERS: Emergency Provider Emergency Medicine; PCP Family Medicine; Referring Provider Emergency Medicine; Visit Provider Emergency Medicine
DX: N39.0 Urinary tract infection, site not specified (principal); R03.0 Elevated blood-pressure reading, without diagnosis of hypertension; I10 Essential (primary) hypertension; F41.9 Anxiety disorder, unspecified; K21.9 Gastro-esophageal reflux disease without esophagitis; Z79.899 Other long term (current) drug therapy; Z98.41 Cataract extraction status, right eye; Z98.42 Cataract extraction status, left eye
CPT/HCPCS: 80048; 81001; 85025; 87077; 87086; 87088; 87186; 96365; 99283; J7050; A4216

== ENCOUNTER 2024-05-29 06:12 | Day surgery (SDC) | payer MEDICARE, OTHER, SELFPAY ==
[2024-05-29] VITALS (10 sets, daily range): BP systolic 65–124; BP diastolic 44–78; PULSE 62–81; RESP 16–18; TEMP 36.2–36.8; O2SAT 93–100; BMI 26.6
--- NOTE | 2024-05-29 | COLBX_PTH ---
PATIENT: KATHIE PALUMBO LOC: EN U#:[id number] AGE/SX: 73/F ROOM: RE05/29/[address]: Dr. Loli Chan MD : 1950 BED: DIS: 05/29/2024 SPEC #: [id number] RECD: 05/29/24 13:41 STATUS: LENNY REQ #: [id number] [place]: 05/29/24 00:[address]: Loli Chan DEPT: SURGICAL PATHOLOGY RECD BY: Matthew Torres ENTERED: 05/29/24 13:42 SP TYPE: COLON BX OTHR DR: Dr. Bassam Johnson, DO Tissues: Rectum, NOS Procedures: Surgery Specimen Level IV HEADER OPERATION: Colonoscopy PRE-OP DIAGNOSIS: Screening TISSUE SUBMITTED: Rectal polyp MICROSCOPIC DIAGNOSIS Rectal polyp, biopsy: Fragments of hyperplastic polyp. AM.mr 05/31/2024 MICROSCOPIC DESCRIPTION Slides are reviewed. GROSS DESCRIPTION Received in fixative is one container labeled with the patient's name and designated Rectal polyp. The specimen consists of two irregular fragments of light leigh soft tissue that in aggregate measure 0.5 x 0.5 x 0.1 cm. The specimen is totally submitted in one cassette. 05/29/2024 TC:5 CPT:47214
--- NOTE | 2024-05-29 06:38 | PCM.PRE.AN2 ---
ASA Classification* ASA Classification ASA Classification: 3 Assessment & Plan Anesthesia* Anesthesia Assessment Anesthesia Assessment: Discussed sedation and/or anesthesia options, risks, benefits, and alternatives with patient/parents/legal guardian/POA. Questions invited. The patient/parents/legal guardian/POA seems to understand and agrees to proceed with anesthesia plan. Reviewed the physical assessment, medical history, allergy history and patient home medications list prior to surgery/procedure/anesthetic and documented any changes. Performed airway and anesthesia risk assessments. Anesthesia Type Anesthesia Type: MAC Anesthesia Focused Assessment* Airway Assessment Mouth opens: >3 cm Mallampati Score: II Focused Labs Anesthesia Preop lab: CBC WBC 7.8 K/mm3 (4.4-11.0) 03/31/24 13:50 RBC 3.36 M/mm3 (4.2-5.4) L 03/31/24 13:50 Hgb 11.0 g/dL (12.0-15.0) L 03/31/24 13:50 Hct 31.5 % (37-47) L 03/31/24 13:50 Plt Count 319 K/mm3 (150-450) 03/31/24 13:50 CHEMISTRY Potassium 4.2 mmol/L (3.5-5.1) 03/31/24 13:50 Sodium 134 mmol/L (136-145) L 03/31/24 13:50 BUN 23 mg/dL (7-18) H 03/31/24 13:50 Creatinine 1.33 mg/dL (0.55-1.02) H 03/31/24 13:50 Glucose 132 mg/dL (74-106) H 03/31/24 13:50 COAG Pre-Assessment Diagnosis/Proposed Procedure Planned Operative Procedure(s): CSCOPE Anesthesia History 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 When Was Last Pacemaker Check QUESTION #4 FULL TEXT: You/Your Family Experience fever (hyperthermia) with Anesthesia Last Oral Intake Last Oral intake: Last Oral Intake NPO since Meds taken in AM with sips of water? Meds patient instructed to take am of surgery PONV PONV - oracle financial application developer: PONV - oracle financial application developer Female Yes 05/27/24 09:41 HX of Motion Sickness No 05/27/24 09:41 HX of N/V After Surgery No 05/27/24 09:41 Non-Smoker Yes 05/27/24 09:41 Duration of Surgery greater No 05/27/24 09:41 than 60 minutes Number of Risk Factors 2 05/27/24 09:41 PONV Score Moderate Risk 05/27/24 09:41 Height & Weight Height & Weight: Anesthesia: Height & Weight Height 5 ft 1 in 03/31/24 12:37 Respiratory Assessment Respiratory Assessment - oracle financial application developer: Respiratory Tract Infection Hx - oracle financial application developer Hx Respiratory Tract Infection No 05/27/24 09:41 STOP Sleep Apnea STOP Sleep Apnea - oracle financial application developer: STOP Sleep Apnea - oracle financial application developer Hx Hypertension Yes: CONTROLLED ON MED 05/27/24 09:41 Hx Sleep Apnea No 05/27/24 09:41 CPAP BIPAP Do you snore loudly (louder No 05/27/24 09:41 than talking or can be heard Do you often feel tired/ No 05/27/24 09:41 fatigued/ sleepy during daytime? Has anyone observed you stop No 05/27/24 09:41 breathing during sleep? STOP Results Negative 05/27/24 09:41 QUESTION #5 FULL TEXT : Do you snore loudly (louder than talking or can be heard through closed doors)? 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 Specify any problems Hx of Preganancy in last 3 N/A 05/27/24 09:41 Months Nurse Filling Out Transfusion NBUCHER 05/27/24 09:41 & Questions: Date: 05/27/24 05/27/24 09:41 Time: 09:45 05/27/24 09:41 Patient unable to answer at this time (ie. confused, unrespo /Reproduction History /Reproductive History - oracle financial application developer: /Reproductive Hx- oracle financial application developer Hx Now Gestational Age (in weeks): EDC: Hx Hx Para Hx Section SAB No 05/27/24 09:41 [facility] Medical History Wears partial dentures Wears glasses Post-menopausal Anxiety Arthritis Dietary restriction Gastric reflux Non-smoker History of edema H/O vaginal delivery Cystitis cataract surgery (~2015) Back pain Neck pain Difficulty balancing Hay fever Seasonal allergies Heart disease Shoulder pain Hypertension Home Medications ?Medication ?Instructions ?Recorded ?Last Taken ?Type calcium carbonate 1,200 mg PO DAILY supplement 01/24/17 11/22/21 History cholecalciferol (vitamin D3) 25 2,000 unit PO DAILY supplement 01/24/17 11/22/21 History mcg (1,000 unit) capsule cinnamon bark 500 mg capsule 1,000 mg PO 0800,1200 supplement 01/24/17 11/22/21 History lorazepam 0.5 mg tablet 0.5 - 1 mg PO DAILY PRN PRN Anxiety 01/24/17 12/22/22 History mtbxzoqwzsrh-Sz-lfzb-minerals 1 ea PO DAILY supplement 01/24/17 11/22/21 History red yeast rice 600 mg capsule 600 mg PO 0800,1200 supplement 01/24/17 11/22/21 History fluticasone propionate 50 1 spray intranasal DAILY allergies 08/25/20 11/22/21 History mcg/actuation nasal spray,suspension famotidine 20 mg tablet (Pepcid) 20 mg PO DAILY PRN GERD 08/12/21 Unknown History ascorbic acid (vitamin C) 1,000 mg 1 g PO DAILY supplement 08/26/21 11/22/21 History tablet amlodipine 5 mg tablet 5 mg PO DAILY hypertension 05/09/22 12/22/22 History lisinopril 10 mg tablet 10 mg PO DAILY 05/09/22 12/22/22 History peg [id number]-[id number] 1 1 drp EACH EYE BID PRN Dry Eyes 12/14/22 Unknown History %-0.2 %-0.2 % eye drops (Dry Eye Relief) acetaminophen 500 mg tablet 1,000 mg PO BID 03/11/24 Unknown History (Tylenol Extra Strength) dexamethasone 0.1 % eye 1 drp ophthalmic (eye) BID PRN 03/11/24 Unknown History drops,suspension itching loratadine 10 mg tablet (Claritin) 10 mg PO DAILY 03/11/24 Unknown History amlodipine 2.5 mg tablet 2.5 mg PO DAILY 03/31/24 Unknown History conjugated estrogens 0.625 mg/gram 0.625 mg vaginal .2X/WEEK 05/27/24 Unknown History vaginal cream (Premarin) ferrous sulfate 325 mg (65 mg 325 mg PO DAILY 05/27/24 Unknown History iron) tablet (Iron (ferrous sulfate)) Allergy/AdvReac Type Severity Reaction Status Date / Time cyclobenzaprine Allergy Mild other Verified 05/27/24 09:29 montelukast (From Singulair) Allergy PT UNSURE Verified 05/27/24 09:29 OF REACTION latex AdvReac irritation Verified 05/27/24 09:29 oxycodone (From Percocet) AdvReac DIZZY,LIGHT Verified 05/27/24 09:29 HEADNESS Family History Other Diabetes Heart disease Hypertension Surgical History History of umbilical hernia repair (~12/2022) Hx of bilateral cataract extraction History of carpal tunnel release of both wrists (~2016) Social History household members: spouse current occupational status: retired Smoking Status: Never smoker alcohol intake: never substance use type: does not use caffeine: Yes what type of physical activity do you participate in: walking frequency: 5-6 times per week seatbelt use: always do you feel safe at home: Yes additional social history: [employer]- Review of Systems (Anesthesia) ROS Narrative System reviewed and no additional complaints, except as documented.
--- NOTE | 2024-05-29 06:55 | H&P.OPEN ---
[facility] - General General Date of Service: 05/29/24 HPI Narrative KATHIE PALUMBO, is a 73 F who presents for screening colonoscopy. Patient never had previous colonoscopy. Patient denies any family history of colon cancer. Patient denies any chronic abdominal pain/nausea/vomiting/reflux. Patient has bowel movements daily denies any blood. [facility] Medical History Wears partial dentures Wears glasses Post-menopausal Anxiety Arthritis Dietary restriction Gastric reflux Non-smoker History of edema H/O vaginal delivery Cystitis cataract surgery (~2015) Back pain Neck pain Difficulty balancing Hay fever Seasonal allergies Heart disease Shoulder pain Hypertension Home Medications ?Medication ?Instructions ?Recorded ?Last Taken ?Type calcium carbonate 1,200 mg PO DAILY supplement 01/24/17 05/28/24 History cholecalciferol (vitamin D3) 25 2,000 unit PO DAILY supplement 01/24/17 05/28/24 History mcg (1,000 unit) capsule cinnamon bark 500 mg capsule 1,000 mg PO 0800,1200 supplement 01/24/17 05/28/24 History lorazepam 0.5 mg tablet 0.5 - 1 mg PO DAILY PRN PRN Anxiety 01/24/17 05/29/24 History mcwtpzeseejl-Sn-ixzb-minerals 1 ea PO DAILY supplement 01/24/17 05/28/24 History red yeast rice 600 mg capsule 600 mg PO 0800,1200 supplement 01/24/17 05/28/24 History fluticasone propionate 50 1 spray intranasal DAILY allergies 08/25/20 11/22/21 History mcg/actuation nasal spray,suspension famotidine 20 mg tablet (Pepcid) 20 mg PO DAILY PRN GERD 08/12/21 Unknown History ascorbic acid (vitamin C) 1,000 mg 1 g PO DAILY supplement 08/26/21 05/28/24 History tablet amlodipine 5 mg tablet 5 mg PO DAILY hypertension 05/09/22 05/29/24 History lisinopril 10 mg tablet 10 mg PO DAILY 05/09/22 05/29/24 History peg 693-[id number]-httpojts 1 1 drp EACH EYE BID PRN Dry Eyes 12/14/22 05/28/24 History %-0.2 %-0.2 % eye drops (Dry Eye Relief) acetaminophen 500 mg tablet 1,000 mg PO BID 03/11/24 05/29/24 History (Tylenol Extra Strength) dexamethasone 0.1 % eye 1 drp ophthalmic (eye) BID PRN 03/11/24 Unknown History drops,suspension itching loratadine 10 mg tablet (Claritin) 10 mg PO DAILY 03/11/24 05/28/24 History amlodipine 2.5 mg tablet 2.5 mg PO DAILY 03/31/24 05/29/24 History conjugated estrogens 0.625 mg/gram 0.625 mg vaginal .2X/WEEK 05/27/24 Unknown History vaginal cream (Premarin) ferrous sulfate 325 mg (65 mg 325 mg PO DAILY 05/27/24 Unknown History iron) tablet (Iron (ferrous sulfate)) Allergy/AdvReac Type Severity Reaction Status Date / Time cyclobenzaprine Allergy Mild other Verified 05/27/24 09:29 montelukast (From Singulair) Allergy PT UNSURE Verified 05/27/24 09:29 OF REACTION latex AdvReac irritation Verified 05/27/24 09:29 oxycodone (From Percocet) AdvReac DIZZY,LIGHT Verified 05/27/24 09:29 HEADNESS Family History Other Diabetes Heart disease Hypertension Surgical History History of umbilical hernia repair (~12/2022) Hx of bilateral cataract extraction History of carpal tunnel release of both wrists (~2016) Social History household members: spouse current occupational status: retired Smoking Status: Never smoker alcohol intake: never substance use type: does not use caffeine: Yes what type of physical activity do you participate in: walking frequency: 5-6 times per week seatbelt use: always do you feel safe at home: Yes additional social history: [place]- Past Medical/Surgical History Planned Operation Planned Operative Procedure(s): CSCOPE S.O.S: No Previous Hospitalizations/Surgeries HX Hospitalizations: No HX of Surgeries: 2016 BILAT CATARACT RIGHT CARPAL TUNNEL RELEASE 2017 Any Problems With Anesthesia: No You/Your Family Experience Fever (Hyperthermia) With Anes: No Cholinesterase deficiency: No Cardiovascular Hx Chest Pain within Last 2 months: No Hx of Irregular Heartbeat and/or Afib: No Hx Heart Attack: No Hx Congestive Heart Failure: No Hx Rheumatic Fever: No Hx Hypertension: Yes (CONTROLLED ON MED) Hx Internal Defibrillator: No Hx Pacemaker: No Hx Cardiac Catheterization: No Hx Cardiac Surgery/Stents/Etc.: No Hx Stress Test: No Hx Pain in Legs when Walking/Leg Cramps: No Respiratory Chronic Cough: No HX of Shortness of Breath: No Hoarseness: No Hx Chronic Obstructive Pulmonary Disease (COPD): No Hx Asthma: No Hx Emphysema: No Hx Sleep Apnea: No Hx Respiratory Tract Infection/Cold (presently): No Do You Snore Loudly (louder than talking or can be heard): No Do You Often Feel Tired/ Fatigued/ Sleepy Dring Daytime?: No Has Anyone Observed You Stop Breathing During Sleep?: No Result (for STOP score): Negative Hx Smoking: No Smoking Status: Never smoker Gastrointestinal Hx Gastrointestinal Disorders: No Hx Gastrointestinal Bleed: No Hx Ulcer: No Hx Hiatal Hernia: No Difficulty Chewing/Swallowing: No Special diet followed at home: No Hx Unplanned Weight Loss of 20#: No HX Unplanned Weight Gain of 20#: No Neurological Hx Seizures: No HX Syncope/Blackout Spells/Unconsciousness: No Hx Transient Ischemic Attacks (TIA): No Hx Multiple Sclerosis: No Hx Parkinson's Disease: No Hx Head/Neck Injury: No Hx Headaches: No Hx Back Injury/Pain: Yes (BACK STRAIN AND ON PREDNISONE DOSE RITO CURRENTLY) Recent Onset of Speech Difficulty: No Restless Legs: No Does patient have nerve stimulator: No Blood Disorder Hx Leukemia: No Bleeding Tendencies: No Hx Deep Vein Thrombosis: No Hx High Cholesterol: Yes Blood Transmitted Disease: No Hx Hepatitis: No Hx Cirrhosis: No Hx Anemia: No Hx Blood Disorders: No Reproduction Is Patient Lactating: No Hx Hysterectomy: No Hx Tubal Ligation: No Are You Post Menopause: Yes Genitourinary Hx Renal Disease: No Hx Dialysis: No Musculoskeletal Hx Arthritis: Yes Hx Rheumatoid Arthritis: No Hx Gout: No Recent Onset of an Orthopedic Problem: Yes (LEFT HAND) Endocrine Hx Diabetes: No Thyroid Disease: No Hx Steroid Therapy: Yes (PREDNISONE CURRENTLY FOR BACK STRAIN) Psycho/Social Hx Substance Use: No Hx Alcohol Use: No Hx Anxiety: Yes (PRN MED) Hx Depression: No Mental Illness: No Hx Dementia: No Miscellaneous Hx Cancer: No Recent Exposure to Contagious Disease: No Hx of C-Diff: No Any Loose Teeth: No Allergies cyclobenzaprine Allergy (Mild, Verified 05/27/24 09:29) other montelukast (From Singulair) Allergy (Verified 05/27/24 09:29) PT UNSURE OF REACTION latex Adverse Reaction (Verified 05/27/24 09:29) irritation gloves oxycodone (From Percocet) Adverse Reaction (Verified 05/27/24 09:29) DIZZY,LIGHTHEADNESS Maternal: Family History Other Diabetes Heart disease Hypertension Hypertension Paternal: Family History Other Diabetes Heart disease Hypertension Heart Disease Discharge Is Pt Admitted From a Longterm, or a Long-Term: No After D/C, Where Do you Plan to Go: Return Home From the PAT History Number of Risk Factors: 2 Vital Signs Vital Signs Vital Signs: 05/29/24 06:39 05/29/24 06:39 Temperature 97.2 F L Temperature Source Temporal Pulse Rate 68 Respiratory Rate 18 Respiratory Pattern Normal Blood Pressure 124/78 H Blood Pressure Mean 93 Blood Pressure Source Monitor Blood Pressure Position Sitting Blood Pressure Location Left Arm Pulse Ox 100 Oxygen Delivery Method Room Air Weight Weight: 141 lb 1.533 oz Body Mass Index (BMI) 26.6 Physical Exam Const alert, oriented x3 and no apparent distress HEENT normocephalic and head/scalp atraumatic Resp normal respiratory effort Cardio regular rate GI soft to palpation and non-tender; Negative for non-distended Palpation: Negative for guarding Extremity no clubbing, cyanosis or edema Skin no rashes or lesions noted Neuro CN's II-XII intact bilaterally Psych mental status grossly normal Assessment & Plan Assessment/Plan (1) Encounter for screening for malignant neoplasm of colon: Surgery Risks - Colonoscopy I discussed with the patient the risks of the procedure: Yes Risks Include but are not Limited To: Risks include but are not limited to: Bleeding, perforation requiring further surgery, inability to complete colonoscopy requiring barium enema.
--- NOTE | 2024-05-29 08:05 | OP.CCLET_ITS ---
05/29/2024 Bassam Johnson Re : Colonoscopy procedure for Aby Telles Dear Alex This procedure was performed on Wednesday, May 29, 2024. My impressions and recommendations are as follows: Impressions : - Two less than 5 mm polyps in the rectum, removed with a cold biopsy forceps. Resected and retrieved. - The examination was otherwise normal on direct and retroflexion views. Recommendations : - Discharge patient to home. - Resume previous diet. - Continue present medications. - Await pathology results. - Repeat colonoscopy in 5-10 years for surveillance based on pathology results. - Depending on overall health at that time My findings are described in the full procedure note, which is enclosed. If I can be of further assistance, please feel free to contact me at Doctor phone number(s): , Work: . Sincerely, MD Loli Julio MD 05/29/2024 8:04:51 AM This report has been signed electronically.
--- NOTE | 2024-05-29 08:05 | OP.COLON_ITS ---
Patient Name: Aby Telles Procedure Date: 05/29/2024 7:29 AM Date of : 1950 Age: 73 Procedure: Colonoscopy Indications: Screening for colorectal malignant neoplasm Providers: Loli Chan MD Referring MD: Bassam Johnson Medicines: Monitored Anesthesia Care Patient Profile: This is a 73 year old female. Last Colonoscopy: none. The patient's first colonoscopy is today. Complications: No immediate complications. Procedure: Pre-Anesthesia Assessment: - Prior to the procedure, a History and Physical was performed, and patient medications and allergies were reviewed. The patient's tolerance of previous anesthesia was also reviewed. The risks and benefits of the procedure and the sedation options and risks were discussed with the patient. All questions were answered, and informed consent was obtained. Prior Anticoagulants: The patient has taken no anticoagulant or antiplatelet agents. ASA Grade Assessment: Per anesthesia. After reviewing the risks and benefits, the patient was deemed in satisfactory condition to undergo the procedure. After I obtained informed consent, the scope was passed under direct vision. Throughout the procedure, the patient's blood pressure, pulse, and oxygen saturations were monitored continuously. The colonoscope was introduced through the anus and advanced to the cecum, identified by the appendiceal orifice, ileocecal valve and palpation. The colonoscopy was performed without difficulty. The patient tolerated the procedure well. The quality of the bowel preparation was good. Scope In: 7:40:24 AM Scope Withdrawal Time 0 hours 8 minutes 24 seconds Scope Out: 8:01:14 AM Total Procedure Duration Time 0 hours 20 minutes 50 seconds Findings: The perianal and digital rectal examinations were normal. Two sessile polyps were found in the rectum. The polyps were less than 5 mm in size. These polyps were removed with a cold biopsy forceps. Resection and retrieval were complete. The exam was otherwise without abnormality on direct and retroflexion views. Impression: - Two less than 5 mm polyps in the rectum, removed with a cold biopsy forceps. Resected and retrieved. - The examination was otherwise normal on direct and retroflexion views. Recommendation: - Discharge patient to home. - Resume previous diet. - Continue present medications. - Await pathology results. - Repeat colonoscopy in 5-10 years for surveillance based on pathology results. - Depending on overall health at that time Procedure Code(s): --- Professional --- 11378, PT, Colonoscopy, flexible; with biopsy, single or multiple Diagnosis Code(s): --- Professional --- Z12.11, Encounter for screening for malignant neoplasm of colon D12.8, Benign neoplasm of rectum CPT copyright 2021 [employer]. All rights reserved. The codes documented in this report are preliminary and upon supply chain associate review may be revised to meet current compliance requirements. MD Loli Julio MD 05/29/2024 8:04:51 AM This report has been signed electronically. Number of Addenda: 0 Note Initiated On: 05/29/2024 7:29 AM
--- NOTE | 2024-05-29 08:10 | PCM.POST.ANE ---
Anesthesia: Postop Eval I Current Vital Signs Temperature: 97.6 F Pulse Rate: 81 Blood Pressure: 86/53 Respiratory Rate: 16 Pulse Ox: 93 Oxygen Delivery Method: Room Air Assessment Airway patent: Yes Spontaneous unlabored respirations: Yes Mental status: Asleep nausea: No Vomiting: No Anesthesia Complication: No Fluid Hydration Crystalloid volume administer (ml): 60 Total IV fluid infused: 60 Progress Note Anesthesia document: Postop Eval 1 completed: Yes
[2024-05-29] MEDS: 0.9% Normal Saline (500mL Bag) 500 ML 999 ML IV (08:16)
--- NOTE | 2024-05-29 09:55 | PCM.POSTANE2 ---
Anesthesia Postop Eval I Sum Postop Eval Completion status Anesthesia document: Postop Eval 1 completed: Yes Anesthesia Postop Eval I Summary Anesthesia Postop Eval I Summary: Anesthesia Postop Eval I: Assessment Summary Airway patent Yes 05/29/24 08:11 [email or web address] Spontaneous unlabored Yes 05/29/24 08:11 [email or web address] respirations Mental status Asleep 05/29/24 08:11 [email or web address] nausea No 05/29/24 08:11 [email or web address] Vomiting No 05/29/24 08:11 [email or web address] Anesthesia Postop Eval I: Fluid Summary Crystalloid volume administer 60 05/29/24 08:11 [email or web address] (ml) Colloids volume administered ( ml) Blood Product volume administered (ml) Total IV fluid infused 60 05/29/24 08:11 [email or web address] Anesthesia Postop Eval I: Summary Notes Anesthesia Complication No 05/29/24 08:11 [email or web address] Anesthesia Complication Comment: Post-operative progress note Anesthesia: Postop Eval II Evaluation Mental status: Awake Pain Level: 0 nausea: No Vomiting: No
== END 2024-05-29 09:19 | disposition home or self-care (01) ==
LOC: EN 06:13 → AC 06:14
PROVIDERS: PCP Family Medicine; Referring Provider Family Medicine; Visit Provider Surgery
PROC: 0DJD8ZZ Inspection of Lower Intestinal Tract, Via Natural or Artificial Opening Endoscopic (ICD-10-PCS; CPT 45378; principal; 2024-05-29 07:25)
DX: Z12.11 Encounter for screening for malignant neoplasm of colon (principal); K62.1 Rectal polyp; I10 Essential (primary) hypertension; F41.9 Anxiety disorder, unspecified; K21.9 Gastro-esophageal reflux disease without esophagitis; M19.90 Unspecified osteoarthritis, unspecified site; Z79.899 Other long term (current) drug therapy
CPT/HCPCS: 45380; 88305; J7040; A4216; J2405

== ENCOUNTER → 2024-09-16 | Outpatient (CLI) | payer MEDICARE, OTHER, SELFPAY ==
--- NOTE | 2024-09-16 12:59 | BI_ITS ---
EXAM: SCRN MAMM (CAD)W/DEBBIE BILAT DATE: 09/16/2024 CLINICAL HISTORY: F, Age 74 y/o , SCREENING MAMMOGRAM WITH BREAST CANCER. Sister with breast cancer. Mother with breast cancer. BREAST CANCER RISK ASSESSMENT: Not assessed. TECHNIQUE: Bilateral screening digital breast tomosynthesis with 2D and 3D images. Computer aided detection. COMPARISON: Prior exam(s) dating back to comparison is made with prior study dated September 15, 2023.. FINDINGS: Bilateral Breast Mammographic Findings: No significant masses, calcifications or other abnormalities are identified. TISSUE DENSITY: The breast tissue is almost entirely fatty. Stable bilateral fat containing axillary lymph nodes. No suspicious masses, areas of developing architectural distortion, or suspicious calcifications. BI/SCRN MAMM (CAD)W/DEBBIE BILAT IMPRESSION: Normal interval followup mammograms are recommended in 12 months. A letter with findings and recommendations will be mailed to the patient. ASSESSMENT: BIRADS 2 BENIGN FINDING RECOMMENDATION: 1: ROUTINE ANNUAL FOLLOW-UP Bilateral in 1 Year Reading Location: [place] [id number]
== END | disposition home or self-care (01) ==
LOC: OPBI 12:58
PROVIDERS: PCP Family Medicine; Referring Provider Obstetrics & Gynecology; Visit Provider Obstetrics & Gynecology
DX: Z12.31 Encounter for screening mammogram for malignant neoplasm of breast (principal); Z80.3 Family history of malignant neoplasm of breast
CPT/HCPCS: 77063; 77067

== ENCOUNTER → 2024-09-30 | Outpatient (CLI) | payer MEDICARE, OTHER, SELFPAY ==
[2024-09-30 14:38] LABS: Hematocrit 33.1 % (37-47); Hemoglobin 11.7 g/dL (12.0-15.0); Mean Corp Hgb Conc 35.3 g/dL (32-36); Mean Corpuscular Volume 93.2 fL (81-99); Mean Platelet Vol. 8.9 fl (6.2-12.0); Platelet Count 385 K/mm3 (150-450); RBC Distribution Width CV 13.2 % (11.6-14.6); RBC Distribution Width SD 44.6 fl (35.1-43.9); Red Blood Count 3.55 M/mm3 (4.2-5.4); White Blood Count 9.3 K/mm3 (4.4-11.0)
[2024-09-30 15:06] LABS: Anion Gap 13 (5-15); BUN 25 mg/dL (4-19); Calcium,Total 9.3 mg/dL (7.6-11.0); Chloride 98 mmol/L (98-108); Creatinine, Serum 1.38 mg/dL (0.70-1.20); EST Glomerular Filtration Rate 40 (>60); Glucose 101 mg/dL (70-99); Potassium 3.9 mmol/L (3.3-5.1); Sodium Level 134 mmol/L (133-145)
== END | disposition home or self-care (01) ==
LOC: LAB 14:10
PROVIDERS: PCP Family Medicine; Referring Provider Family Medicine; Visit Provider Family Medicine
DX: E87.1 Hypo-osmolality and hyponatremia (principal); D64.9 Anemia, unspecified
CPT/HCPCS: 36415; 80048; 85027

== ENCOUNTER 2025-01-21 21:41 | Inpatient (IN) | payer MEDICARE, OTHER, SELFPAY ==
[2025-01-21 21:42] VITALS: BP 163/62; PULSE 75; RESP 17; TEMP 36.6; O2SAT 97; BMI 27.9
--- NOTE | 2025-01-21 21:54 | EKG12_ITS ---
Test Reason : GASTRIC PAIN Blood Pressure : */* mmHG Vent. Rate : 70 BPM Atrial Rate : 70 BPM P-R Int : 148 ms QRS Dur : 98 ms QT Int : 414 ms P-R-T Axes : 7 -23 14 degrees QTcB Int : 447 ms Normal sinus rhythm Incomplete right bundle branch block Minimal voltage criteria for LVH, may be normal variant ( R in aVL ) Borderline ECG Confirmed by Ignacio Peng ([id number]), content editor CHRISTY TOVAR ([id number]) on 01/23/2025 11:43:27 AM Referred By: CLIFFORD Confirmed By: Ignacio Peng
[2025-01-21 23:04] LABS: Hematocrit 33.6 % (37-47); Hemoglobin 11.8 g/dL (12.0-15.0); Immature Granulocytes Count 0.060 X10^3/uL (0.0-0.0); Mean Corp Hgb Conc 35.1 g/dL (32-36); Mean Corpuscular Volume 92.3 fL (81-99); Mean Platelet Vol. 8.9 fl (6.2-12.0); NRBC Flagged by Analyzer 0 % (0-5); Platelet Count 384 K/mm3 (150-450); RBC Distribution Width CV 13.3 % (11.6-14.6); RBC Distribution Width SD 45.1 fl (35.1-43.9); Red Blood Count 3.64 M/mm3 (4.2-5.4); White Blood Count 13.4 K/mm3 (4.4-11.0)
[2025-01-21 23:29] LABS: AST(SGOT) 22 U/L (<=31); Alanine Aminotransfer ALT/SGPT 20 U/L (<=34); Albumin, Serum 4.1 g/dL (3.4-4.8); Alkaline Phosphatase 48 U/L (35-104); Anion Gap 14 (5-15); BUN 23 mg/dL (4-19); BUN/Creat Ratio 16.5 RATIO (10-20); Calcium,Total 9.4 mg/dL (7.6-11.0); Carbon Dioxide 21.0 mmol/L (21.0-32.0); Chloride 94 mmol/L (98-108); Estimated Creatinine Clearance 31.10 ml/min (50-250); Globulin 3.0 g/dL (2.2-4.2); Glucose 112 mg/dL (70-99); Lipase 62 U/L (13-75); Potassium 4.2 mmol/L (3.3-5.1)
[2025-01-21 23:35] VITALS: BP 144/72; PULSE 60; RESP 18; O2SAT 100
[2025-01-22] VITALS (8 sets, daily range): BP systolic 105–158; BP diastolic 56–92; PULSE 55–77; RESP 16–18; TEMP 36.3–36.7; O2SAT 98–100; BMI 27.8
[2025-01-22] MEDS: 0.9% Normal Saline (500mL Bag) 500 ML 999 ML IV (00:18)
--- OUTSIDE RECORDS SUMMARY | 2025-01-22 00:56 | XMS RPT_ITS | CCD ---
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 Bassam Johnson Primary Care Provider Dr. Bassam Johnson Referring Provider Morrow BOILERMAKING SUPERVISOR, BOILERMAKING SUPERVISOR-C Tiffanie Attending Provider [phone] Dr. Lore Scanlon Attending Provider [phone] Dr. Loli Chan Attending Provider Dr. Lore Scanlon Referring Provider [phone] Dr. Keyon Mayer Emergency Provider Dr. Milo Borges Admit Provider Dr. Milo Borges Attending Provider Dr. Milo Borges Other Provider Dr. Yaya Little Attending Provider [phone] Dr. Yaya Little Other Provider Dr. Quiana Xavier Other Provider Duc, Dr. Araya Attending Provider Alex, Dr. Banegas Primary Care Provider Duc, Dr. Araya Referring Provider Alex, Dr. Banegas Referring Provider Dr. Lore Scanlon Attending Provider Dr. Bassam Johnson Primary Care Provider Alex, Dr. Banegas Referring Provider Dr. Lore Scanlon Attending Provider Rocio, Dr. Ennis Attending Provider Rocio, Dr. Ennis Referring Provider Rocio, Dr. Ennis Other Provider Alex, Dr. Banegas Primary Care Provider Dr. Bassam Johnson Referring Provider Dr. Loli Chan Attending Provider Dr. Bassam Johnson Primary Care Provider Dr. Bassam Johnson Referring Provider Dr. Lore Scanlon Attending Provider Alex PIÑA, Dr. Banegas Primary Care Provider Dr. Bassam Johnson DO Referring Provider Rocio KATHLEEN, Dr. Ennis Attending Provider Rocio KATHLEEN, Dr. Ennis Other Provider Dr. Lore Scanlon MD Attending Provider [phone] Dr. Lore Scanlon MD Referring Provider Dr. Bassam Johnson DO Primary Care Provider Dr. Bassam Johnson DO Attending Provider Dr. Bassam Johnson DO Referring Provider [phone] Hossein North Attending Unavailable Hossein North Referring Unavailable Alex, Bassam Primary Care Unavailable Lore Scanlon Attending Unavailable Lore Scanlon Referring Unavailable Alex, Bassam Primary Care Unavailable Lakisha Ramirez Attending Unavailable Alex, Bassam Primary Care Unavailable Lakisha Ramirez Attending Unavailable Alex, Bassam Primary Care Unavailable Alex, Bassam Referring Unavailable Alex, Bassam Primary Care Unavailable Loli Chan Consulting Unavailable Loli Chan Attending Unavailable Lore Scanlon Attending Unavailable Alex, Bassam Referring Unavailable Alex, Bassam Primary Care Unavailable Alex, Bassam Referring Unavailable Alex, Bassam Primary Care Unavailable RobotZheng rappera Attending Unavailable Alex, Bassam Attending Unavailable Alex, Bassam Referring Unavailable Alex, Bassam Primary Care Unavailable Jose Smith Attending Unavailabl e Alex, Bassam Primary Care Unavailable Allergies Allergy Classification Reported Allergen(s) Allergy Type Date of Onset Reaction(s) Facility (17 sources) cyclobenzaprine Drug Allergy 11-23-19 22 other [facility] (17 sources) oxyCODONE Drug Allergy 11-23-19 22 DIZZY,LIGHTHEA DNESS [facility] (3 sources) Latex Propensity to adverse reactions 05-27-20 24 irritation [facility] Comment on above: gloves (3 sources) montelukast Drug Allergy 05-27-20 24 PT UNSURE OF REACTION [facility] (1 source) cyclobenzaprine Drug Allergy 11-19-19 25 [facility] (1 source) Latex Drug allergy (disorder) 11-19-19 25 [facility] (1 source) montelukast Drug Allergy 11-19-19 25 [facility] (1 source) oxyCODONE Drug Allergy 11-19-19 25 [facility] Medications Current Medications Medication Drug Class(es) Dates Sig (Normalized) Sig (Original) acetaminophen 500 mg oral tablet (3 sources) Start: 03-11-2024 take 2 tablets by mouth twice daily at bedtime Acetaminophen (Tylenol Extra Strength) 500 mg tablet Active 1000 mg PO TWICE A DAY March 11, 2024 12:00am AM and HS amLODIPine 2.5 mg oral tablet (20 sources) Dihydropyridine Calcium Channel Chucho Start: 03-31-2024 take 1 tablet by mouth once daily Amlodipine 2.5 mg tablet Active 2.5 mg PO DAILY March 31, 2024 12:00am Start: 05-09-2022 take 1 tablet by chapis th once daily Amlodipine 5 mg tablet Active 5 mg PO DAILY May 09, 2022 3:06pm Start: 11-23-2021 End: 05-09-2022 take 7.5 mg by mouth once daily Amlodipine 5 MG tablet Discontinued 7.5 mg PO DAILY November 23, 2021 1:19am May 09, 2022 3:08pm Start: 11-23-2021 End: 05-09-2022 take 7.5 mg by mouth once daily Amlodipine Active 7.5 MG PO DAILY May 09, 2022 3:06pm Start: 09-01-2019 End: 11-23-2021 take 1 tablet by mouth once daily Amlodipine 5 MG tablet Discontinued 5 mg PO DAILY September 01, 2019 1:00am November 23, 2021 1:25am Ascorbic Acid (20 sources) Vitamin C Start: 08-26-2021 take 1 g by mouth once daily Ascorbic Acid (Vitamin C) Active 1 GM PO DAILY August 26, 2021 12:41pm Start: 08-26-2021 take 1 g by mouth once daily A scorbic Acid (Vitamin C) 1,000 mg tablet Active 1 g PO DAILY August 26, 2021 1:00am Start: 08-26-2021 take 1 g by mouth once daily A scorbic Acid (Vitamin C) Active 1 GM PO DAILY August 26, 2021 12:00am Start: 08-26-2021 take 1 g by mouth once daily A scorbic Acid (Vitamin C) Active 1 GM PO DAILY August 26, 2021 1:00am Start: 01-24-2017 End: 08-26-2021 take 1 tablet by mouth once daily Ascorbic Acid (Vitamin C) 500 MG tablet extended release Discontinued 500 mg PO DAILY January 24, 2017 12:00am August 26, 2021 12:41pm calcium carbonate 1500 mg oral tablet (17 sources) Start: 01-24-2017 take 2 tablets by mouth once daily Calcium Carbonate 600 MG tablet Active 1200 mg PO DAILY January 24, 2017 12:00am Start: 01-24-2017 take 1200 mg by mouth once lance ly Calcium Carbonate Active 1200 MG PO DAILY January 24, 2017 12:00am cholecalciferol 0.025 mg oral capsule (17 sources) Vitamin D Start: 01-24-2017 take 2 capsules by mouth once daily Cholecalciferol (Vitamin D3) 1,000 UNIT capsule Active 2000 U PO DAILY January 24, 2017 12:00am Start: 01-24-2017 Cholecalcifero l (Vitamin D3) Active 1000 UNIT PO 0800,1200 January 24, 2017 12:00am cinnamon bark 500 mg oral capsule (17 sources) Start: 01-24-2017 Cinnamon Bark 500 MG capsule Active 1000 mg PO 0800,1200 January 24, 2017 12:00am Start: 01-24-2017 Cinnamon Bark Active 1000 MG PO 0800,1200 January 24, 2017 12:00am Dexamethasone 0.1 % drops,suspension (3 sources) Start: 03-11-2024 Dexamethasone 0.1 % drops,suspension Active 1 NMA OPHTHALMIC TWICE A DAY as needed for itching March 11, 2024 12:00am Both eyes estriol vaginal cream (1 source) Start: 11-18-2024 estriol vaginal cream Active VAGINAL November 18, 2024 12:00am famotidine 20 mg oral tablet (17 sources) Histamine-2 Receptor Antagonist Start: 08-12-2021 take 1 tablet by mouth once daily as needed for gastroesophageal reflux disease Famotidine (Pepcid) 20 mg tablet Active 20 mg PO DAILY as needed for GERD August 12, 2021 1:00am ferrous sulfate 325 mg oral tablet (3 sources) Start: 05-27-2024 take 1 tablet by mouth once daily Ferrous Sulfate (Iron (Ferrous Sulfate)) 325 mg (65 mg iron) tablet Active 325 mg PO DAILY May 27, 2024 1:00am fluticasone propionate 0.05 mg/actuat metered dose nasal spray (20 sources) Corticosteroid Start: 08-25-2020 Fluticasone Propionate 50 mcg/actuation spray,suspension Active 1 NMA INTRANASAL DAILY August 25, 2020 1:00am administer into each nostril Start: 08-25-2020 take 1 spray(s) nasa l route once daily Fluticasone Propionate Active 1 SPRAY INTRANASAL DAILY August 25, 2020 1:00am administer into each nostril Start: 05-17-2016 FLUTICASONE MO OPIONATE 50 MCG/ACT SUSP FLUTICASONE PROPIONATE [id number] Danish Spears glycerin 2 mg/ml / hypromellose 2 mg/ml / polyethylene glycol 400 10 mg/ml ophthalmic solution (10 sources) Non-Standardized Chemical Allergen Start: 12-14-2022 Peg 024-Ffzdidgxlsbs-Prhttwv n (Dry Eye Relief) 1-0.2-0.2 % Drops Active 1 NMA EACH EYE TWICE A DAY as needed for Dry Eyes December 14, 2022 12:00am Start: 12-14-2022 Peg 400-Hyprom ellose-Glycerin (Dry Eye Relief) 1-0.2-0.2 % Drops Active 1 DRP EACH EYE TWICE A DAY December 14, 2022 12:00am lisinopril 10 mg oral tablet (20 sources) Angiotensin Converting Enzyme Inhibitor Start: 05-09-2022 take 1 tablet by mouth once daily Lisinopril 10 mg tablet Active 10 mg PO DAILY May 09, 2022 1:00am Start: 09-01-2019 End: 11-24-2021 take 1 tablet by mouth once daily Lisinopril 20 MG tablet Discontinued 20 mg PO DAILY September 01, 2019 1:00am November 24, 2021 8:07am loratadine 10 mg oral tablet (20 sources) Start: 12-14-2022 End: 03-11-2024 take 1 tablet by mouth once daily Loratadine (Claritin) 10 mg tablet Active 10 mg PO DAILY March 11, 2024 11:52am Start: 09-01-2019 take 10 mg by mouth once daily Loratadine Active 10 MG PO DAILY September 01, 2019 1:00am LORazepam 0.5 mg oral tablet (20 sources) Benzodiazepine Start: 01-24-2017 take 0.5-1 mg by mouth once daily as needed for anxiety Lorazepam 0.5 MG tablet Active 0.5 - 1 mg PO DAILY NEEDED as needed for Anxiety January 24, 2017 12:00am Start: 05-17-2016 ATIVAN 1 MG TA BS LORAZEPAM [id number] Danish Spears mecobalamin (1 source) Start: 11-18-2024 Mecobalamin (V itamin B12) 500 mcg tablet,chewable Active ug PO DAILY November 18, 2024 12:00am Hatqhdvmhdhr-Ez-Hsvs-Mineral s (14 sources) Start: 01-24-2017 Multivitamin-C m-Kbcp-Ztwbnyyh Active 1 EACH PO DAILY January 24, 2017 8:21am Start: 01-24-2017 Multivitamin-C m-Gcdi-Ahhcakst Active 1 EACH PO DAILY January 23, 2017 11:00pm Start: 01-24-2017 Multivitamin-C o-Bltm-Fhzuxkus Active 1 EACH PO DAILY January 24, 2017 12:00am Edtxbbgdlrzf-Nr-Qcyd-Mineral s 1 EACH tablet (3 sources) Start: 01-24-2017 take 1 tablet by mouth once daily Gpghfyevlhqa-Zd-Jtmq-Minerals 1 EACH tablet Active 1 NMA PO DAILY January 24, 2017 12:00am red yeast rice 600 mg oral capsule (17 sources) Start: 01-24-2017 Red Yeast Rice 600 MG capsul e Active 600 mg PO 0800,1200 January 24, 2017 12:00am Completed/Discontinued Medications Medication Drug Class(es) Dates Sig (Normalized) Sig (Original) ampicillin 500 mg oral capsule (17 sources) Penicillin-class Antibacterial Start: 08-16-2021 End: 08-21-2021 take 1 capsule by mouth every eight hours Ampicillin 500 mg capsule Discontinued 500 mg PO Q8H 15 5 August 16, 2021 1:00am August 20, 2021 1:00am August 21, 2021 1:05am aspirin 81 mg delayed release oral tablet (15 sources) Nonsteroidal Anti-inflammatory Drug Start: 05-17-2016 ASPIRIN 81 MG [facility] ASPIRIN [id number] Danish Spears calcium (13 sources) Phosphate Binder, Calcium Start: 05-17-2016 CALCIUM 1000 + D TABS CALCIUM CARB-CHOLECALCIFER OL TABS [id number] Danish De La Garza Tory Start: 05-17-2016 CALCIUM 1000 + D TABS CALCIUM CARB-CHOLECALCIFEROL TABS [id number] Danish Spears CALCIUM CARB-CHOLECALCIFEROL TABS (2 sources) Start: 05-17-2016 CALCIUM 1000 + D TABS CALCIUM CARB-CHOLECALCIFEROL TABS [id number] Danish Spears calcium citrate 1190 mg / cholecalciferol 0.005 mg oral tablet (17 sources) Vitamin D Start: 08-25-2020 End: 08-12-2021 Calcium Citrate-Vitamin D3 (Citracal Regular) 250 mg-5 mcg (200 unit) tablet Discontinued 1 {tbl} PO THREE TIMES A DAY August 25, 2020 1:00am August 12, 2021 3:48pm cephalexin 500 mg oral capsule (20 sources) Cephalosporin Antibacterial Start: 03-31-2024 End: 05-27-2024 take 1 capsule by mouth every six hours Cephalexin 500 mg capsule Discontinued 500 mg PO EVERY 6 HOURS March 31, 2024 12:00am May 27, 2024 10:32am Start: 01-12-2023 End: 10-20-2023 take 1 capsule by mouth twice daily Cephalexin 500 mg capsule Discontinued 500 mg PO TWICE A DAY January 12, 2023 12:00am October 20, 2023 2:44pm Start: 04-08-2022 End: 04-18-2022 take 1 capsule by mouth every twelve hours Cephalexin 500 mg capsule Discontinued 500 mg PO Q12H 20 April 08, 2022 12:00am April 17, 2022 12:00am April 18, 2022 12:03am coenzyme q10 200 mg oral capsule (15 sources) Start: 05-17-2016 CO Q-10 200 MG CAPS COENZYME Q10 [id number] Danish Spears Start: 05-17-2016 CO Q-10 200 MG CAPS COENZYME Q10 [id number] Danish Spears Coenzyme I22-Vwstzse E (14 sources) Start: 01-24-2017 End: 09-01-2019 Coenzyme W09-Xaikteb E Disco ntinued 1 EACH PO DAILY January 24, 2017 8:21am September 01, 2019 3:07pm Start: 01-24-2017 End: 09-01-2019 Coenzyme Q10-Gmaaify E Disco ntinued 1 EACH PO DAILY January 23, 2017 11:00pm September 01, 2019 2:07pm Start: 01-24-2017 End: 09-01-2019 Coenzyme R55-Ynldzfv E Disco ntinued 1 EACH PO DAILY January 24, 2017 12:00am September 01, 2019 3:07pm Coenzyme T74-Vmalcsv E 1 EACH capsule (3 sources) Start: 01-24-2017 End: 09-01-2019 take 1 capsule by mouth once daily Coenzyme O40-Zphyzwu E 1 EACH capsule Discontinued 1 NMA PO DAILY January 24, 2017 12:00am September 01, 2019 3:07pm cyclobenzaprine hydrochloride 5 mg oral tablet (17 sources) Muscle Relaxant Start: 01-26-2020 End: 02-14-2020 Cyclobenzaprine 5 mg tablet Discontinued 5 mg PO AT BEDTIME January 26, 2020 12:00am February 14, 2020 12:52pm take as needed for muscle spasms. patient may cut in half to decrease dose as tolerated. estrogens, conjugated (alf) 0.625 mg/ml vaginal cream (20 sources) Estrogen Start: 05-27-2024 End: 11-18-2024 Conjugated Estrogens (Premarin) 0.625 mg/gram cream Discontinued 0.625 mg VAGINAL .2X/WEEK May 27, 2024 1:00am November 18, 2024 2:23pm Start: 08-25-2020 End: 05-27-2024 Conjugated Estrogens (Premar in) 0.625 mg/gram cream Discontinued 0.625 mg VAGINAL MOFR August 25, 2020 1:00am May 27, 2024 10:33am off 5 days; repeat cycle ferrous fumarate 1 mg oral tablet (4 sources) Start: 10-20-2023 End: 05-27-2024 Ferrous Fumarate 63 mg (20 m g iron) tablet Discontinued mg PO October 20, 2023 12:00am May 27, 2024 10:36am fish oil (13 sources) Start: 05-17-2016 FISH OIL 1000 MG CAPS OMEGA-3 FATTY ACIDS [id number] Danish Spears Start: 05-17-2016 FISH OIL 1000 MG CAPS OMEGA-3 FATTY ACIDS [id number] Danish Spears fluconazole 150 mg oral tablet (9 sources) Azole Antifungal Start: 03-31-2024 End: 05-27-2024 Fluconazole 150 mg tablet Discontinued 150 mg PO ONE TIME 2 March 31, 2024 2:33pm May 27, 2024 10:36am Take 1 tablet after completing your antibiotics. May repeat in 3 days if no improvement Start: 08-19-2022 take 150 mg by mouth once Fluc onazole Active 150 MG PO ONCE 1 August 19, 2022 1:00am as a single dose [id number] C- [place] (8 sources) Start: 05-17-2016 GLUCOSAMINE CH ONDR 500 COMPLEX CAPS [id number] C-MN [id number] Danish De La Garza Tory [id number]-ESK C- [place] (7 sources) Start: 05-17-2016 GLUCOSAMINE CH ONDR 500 COMPLEX CAPS [id number] C-[place] [id number] Danish De La Garza Tory Start: 05-17-2016 GLUCOSAMINE CH ONDR 500 COMPLEX CAPS [id number] C-[place] [id number] Danish Spears hydroCHLOROthiazide 50 mg / triamterene 75 mg oral tablet (20 sources) Potassium-sparing Diuretic, Thiazide Diuretic Start: 01-24-2017 End: 09-01-2019 Triamterene-Hydrochlorothiaz id 1 TABLET tablet Discontinued 0.5 {tbl} PO DAILY January 24, 2017 12:00am September 01, 2019 3:07pm Start: 01-24-2017 End: 09-01-2019 take 0.5 tablet by mouth once daily Triamterene-Hydrochlorothiazid Discontin ued 0.5 TABLET PO DAILY January 24, 2017 12:00am September 01, 2019 3:07pm Start: 05-17-2016 TRIAMTERENE-HC TZ 75-50 MG TABS TRIAMTERENE-HCTZ [id number] Danish Spears linseed oil 1000 mg oral capsule (17 sources) Start: 01-24-2017 End: 09-01-2019 Flaxseed Oil 1,000 MG capsule Discontinued 1000 mg PO 0800,1200 January 24, 2017 12:00am September 01, 2019 3:06pm 24 hr loratadine 10 mg / pseudoePHEDrine sulfate 240 mg extended release oral tablet (15 sources) alpha-Adrenergic Agonist Start: 05-17-2016 CLARITIN-D 24 HOUR 10-240 MG [id number] LORATADINE-PSEUDOEPHED RINE [id number] Danish Spears Start: 05-17-2016 CLARITIN-D 24 HOUR 10-240 MG [id number] LORATADINE-PSEUDOEPHEDRINE [id number] Danihs Spears magnesium (15 sources) Start: 05-17-2016 MAGNESIUM 400 MG TABS MAGNESIUM [id number] Danish Spears Start: 05-17-2016 MAGNESIUM 400 MG TABS MAGNESIUM [id number] Danish Holli Spears magnesium oxide 400 mg oral tablet (17 sources) Start: 01-24-2017 End: 09-01-2019 Magnesium Oxide 400 MG tablet Discontinued 400 mg PO MOWEFR January 24, 2017 12:00am September 01, 2019 3:07pm meloxicam 7.5 mg oral tablet (20 sources) Nonsteroidal Anti-inflammatory Drug Start: 02-14-2020 End: 08-25-2020 take 1 tablet by mouth once daily Meloxicam (Mobic) 7.5 mg tablet Discontinued 7.5 mg PO DAILY June 15, 2020 2:45pm August 25, 2020 12:29pm Start: 01-26-2020 End: 02-14-2020 take 1 tablet by mouth once daily Meloxicam 15 mg tablet Discontinued 15 mg PO DAILY January 26, 2020 12:00am February 14, 2020 12:52pm MULTIPLE VITAMINS-MINERALS (8 sources) Start: 05-17-2016 MULTIVITAMIN W OMEN 50+ TABS MULTIPLE VITAMINS-MINERALS [id number] Danish Spears MULTIPLE VITAMINS-MINERALS (7 sources) Start: 05-17-2016 MULTIVITAMIN W OMEN 50+ TABS MULTIPLE VITAMINS-MINERALS [id number] Danish Spears Start: 05-17-2016 MULTIVITAMIN W OMEN 50+ TABS MULTIPLE VITAMINS- MINERALS [id number] Danish Spears niacin 500 mg oral tablet (17 sources) Nicotinic Acid Start: 01-24-2017 End: 09-01-2019 take 1 tablet by mouth once daily Niacin 500 MG tablet Discontinued 500 mg PO DAILY January 24, 2017 12:00am September 01, 2019 3:07pm nitrofurantoin, macrocrystals 100 mg oral capsule (17 sources) Nitrofuran Antibacterial Start: 08-12-2021 End: 08-16-2021 take 1 capsule by mouth twice daily at mealtime Nitrofurantoin Macrocrystal 100 mg capsule Discontinued 100 mg PO TWICE A DAY 13 01August 12, 2021 1:00am August 18, 2021 1:00am August 16, 2021 5:00pm administer with food (meal or snack) OMEGA-3 FATTY ACIDS (2 sources) Start: 05-17-2016 FISH OIL 1000 MG CAPS OMEGA-3 FATTY ACIDS [id number] Danish Spears [place]-3 Fatty Acids-Fish Oil (14 sources) Start: 01-24-2017 End: 09-01-2019 [place]-3 Fatty Acids-Fish Oil Discontinued 1 EACH PO 0800,1200 January 24, 2017 8:21am September 01, 2019 3:07pm Start: 01-24-2017 End: 09-01-2019 [place]-3 Fatty Acids-Fish Oil Discontinued 1 EACH PO 0800,1200 January 23, 2017 11:00pm September 01, 2019 2:07pm Start: 01-24-2017 End: 09-01-2019 [place]-3 Fatty Acids-Fish Oil Discontinued 1 EACH PO 0800,1200 January 24, 2017 12:00am September 01, 2019 3:07pm [place]-3 Fatty Acids-Fish Oil 1 EACH capsule (3 sources) Start: 01-24-2017 End: 09-01-2019 [place]-3 Fatty Acids-Fish Oil 1 EACH capsule Discontinued 1 NMA PO 0800,1200 January 24, 2017 12:00am September 01, 2019 3:07pm omeprazole 20 mg delayed release oral capsule (12 sources) Proton Pump Inhibitor Start: 09-22-2022 End: 10-20-2023 take 1 capsule by mouth once daily Omeprazole 20 mg capsule,delayed release(DR/EC) Discontinued 20 mg PO DAILY September 22, 2022 12:00am October 20, 2023 2:45pm potassium gluconate 2.5 meq oral tablet (17 sources) Start: 01-24-2017 End: 09-01-2019 take 1 tablet by mouth once daily Potassium (Otc) (Potassium Otc) 99 MG tablet Discontinued 99 mg PO DAILY January 24, 2017 12:00am September 01, 2019 3:07pm predniSONE 10 mg oral tablet (20 sources) Start: 10-20-2023 End: 05-27-2024 Prednisone 10 mg tablets,dose pack Discontinued 10 mg PO As Directed as needed March 11, 2024 11:52am May 27, 2024 10:38am see taper instructions Start: 09-01-2019 End: 02-14-2020 Prednisone 5 MG tablet Disco ntinued 5 mg PO DAILY September 01, 2019 1:00am February 14, 2020 12:52pm started 08/28, 4 tabs x 3 days, 3 tabs x1 day, 2 tabs x 1 day, 1 tab x 3 days. SELENIUM (8 sources) Start: 05-17-2016 SELENIUM 200 M CG TABS SELENIUM [id number] Danish Spears SELENIUM (5 sources) Start: 05-17-2016 SELENIUM 200 M CG TABS SELENIUM [id number] Danish De La Garza Tory SELENIUM (2 sources) Start: 05-17-2016 SELENIUM 200 M CG TABS SELENIUM [id number] Danish Spears Selenium (14 sources) Start: 01-24-2017 End: 09-01-2019 take 200 ug by mouth once daily Selenium Discontinued 200 MCG PO DAILY January 24, 2017 8:21am September 01, 2019 3:08pm Start: 01-24-2017 End: 09-01-2019 take 200 ug by mouth once daily Selenium Discontinued 200 MCG PO DAILY January 23, 2017 11:00pm September 01, 2019 2:08pm Start: 01-24-2017 End: 09-01-2019 take 200 ug by mouth once daily Selenium Discontinued 200 MCG PO DAILY January 24, 2017 12:00am September 01, 2019 3:08pm Selenium 100 MCG tablet (3 sources) Start: 01-24-2017 End: 09-01-2019 take 1 tablet by mouth once daily Selenium 100 MCG tablet Discontinued 200 ug PO DAILY January 24, 2017 12:00am September 01, 2019 3:08pm sulfamethoxazole 800 mg / trimethoprim 160 mg oral tablet (14 sources) Dihydrofolate Reductase Inhibitor Antibacterial, Sulfonamide Antimicrobial Start: 12-28-2021 End: 12-31-2021 Sulfamethoxazole- Trimethoprim (Bactrim Ds) 800-160 mg tablet Discontinued 1 {tbl} PO TWICE A DAY 6 December 28, 2021 12:00am December 30, 2021 12:00am December 31, 2021 12:03am traMADol hydrochloride 50 mg oral tablet (10 sources) Opioid Agonist Start: 12-22-2022 End: 01-12-2023 take 1 tablet by mouth every six hours as needed for pain Tramadol 50 mg tablet Discontinued 50 mg PO EVERY 6 HOURS as needed for pain 10 3 December 22, 2022 12:00am January 12, 2023 3:06pm triamcinolone acetonide 40 mg/ml injectable suspension (3 sources) Corticosteroid Start: 02-24-2020 End: 02-24-2020 Kenalog (triamcinolone acetonide) 40 mg/mL suspension for injection Discontinued 80 MG INTRAARTIC ONCE 2 February 24, 2020 1:26pm February 24, 2020 3:17pm vitamin a 55999 unt oral capsule (17 sources) Vitamin A Start: 01-24-2017 End: 09-01-2019 Vitamin A 10,000 UNIT capsule Discontinued 41078 U PO MOFR January 24, 2017 12:00am September 01, 2019 3:07pm Vitamin B Complex (Balanced B-50) 1 EACH tablet (17 sources) Start: 01-24-2017 End: 09-01-2019 take 1 tablet by mouth once daily Vitamin B Complex (Balanced B-50) 1 EACH tablet Discontinued 1 EACH PO DAILY January 24, 2017 8:21am September 01, 2019 3:07pm Start: 01-24-2017 End: 09-01-2019 take 1 tablet by mouth once daily Vitamin B Complex (Balanced B-50) 1 EACH tablet Discontinued 1 NMA PO DAILY January 24, 2017 12:00am September 01, 2019 3:07pm Start: 01-24-2017 End: 09-01-2019 take 1 tablet by mouth once daily Vitamin B Complex (Balanced B-50) 1 EACH tablet Discontinued 1 EACH PO DAILY January 23, 2017 11:00pm September 01, 2019 2:07pm Start: 01-24-2017 End: 09-01-2019 take 1 tablet by mouth once daily Vitamin B Complex (Balanced B-50) 1 EACH tablet Discontinued 1 EACH PO DAILY January 24, 2017 12:00am September 01, 2019 3:07pm vitamin e 180 mg oral capsule (17 sources) Start: 01-24-2017 End: 09-01-2019 take 1 capsule by mouth once daily Vitamin E 400 UNIT capsule Discontinued 400 U PO DAILY January 24, 2017 12:00am September 01, 2019 3:07pm Problems Active Problems Problem Classification Problem Date Documented Da te Episodic/Chronic Abdominal hernia (20 sources) Umbilical hernia; Translations: [Umbilical hernia without obstruction or gangrene] Episodic Comment on above: 1.3 cm in size per C T 2019, reducible Abdominal pain (20 sources) Epigastric pain; Translations: [Epigastric pain] Episodic Acute and unspecified renal failure (17 sources) Injury of kidney; Translations: [Acute kidney failure, unspecified] 09-01-2019 Episodic Fluid and electrolyte disorders (9 sources) Hyponatremia; Translations: [Hypo-osmolality and hyponatremia] Onset: 10-02-2024 04-25-2023 Episodic Headache; including migraine (3 sources) Headache; Translations: [Headache] 03-29-2024 Episodic Headache; including migraine (1 source) Headache; including migraine; Translations: [Headache, unspecified] Onset: 04-13-2024 Intestinal obstruction without hernia (20 sources) Partial obstruction of small bowel; Translations: [Partial intestinal obstruction, unspecified as to cause] Episodic Other and unspecified benign neoplasm (17 sources) Melanocytic nevus; Translations: [Melanocytic nevi, unspecified] 08-26-2021 Episodic Comment on above: ava multani referral Other and unspecified benign neoplasm (3 sources) Melanocytic nevi, unspecified; Translations: [Benign neoplasm of skin, site unspecified] Episodic Other bone disease and musculoskeletal deformities (11 sources) Postmenopausal osteopenia; Translations: [Other specified disorders of bone density and structure, unspecified site] 10-03-2022 Episodic Comment on above: low fracture risk Other bone disease and musculoskeletal deformities (10 sources) Scapulalgia; Translations: [Other specified disorders of bone, shoulder] 11-24-2022 Episodic Other circulatory disease (17 sources) Elevated blood pressure; Translations: [Elevated blood-pressure reading, without diagnosis of hypertension] 09-01-2019 Episodic Other connective tissue disease (17 sources) Impingement syndrome of shoulder region; Translations: [Impingement syndrome of left shoulder] 01-26-2020 Episodic Other nervous system disorders (15 sources) Carpal tunnel syndrome; Translations: [Carpal tunnel syndrome, unspecified upper limb] Onset: 05-17-2016 05-17-2016 Chronic Other nervous system disorders (17 sources) Paresthesia of upper limb; Translations: [Paresthesia of skin] 01-27-2020 Episodic Other screening for suspected conditions (not mental disorders or infectious disease) (7 sources) Patient encounter status; Translations: [Encounter for screening for malignant neoplasm of colon] Onset: 06-10-2024 03-11-2024 Episodic Ovarian cyst (20 sources) Cyst of ovary; Translations: [Unspecified ovarian cyst, left side] Episodic Comment on above: annual US. seen on M RI. recommend pelvic us now, cea and ca 125- NL; and if benign appearing recommend repeat us yearly to confirm stability. -11/23 benign rpt in 1 yr. Syncope (8 sources) Vasovagal syncope; Translations: [Syncope and collapse] 04-25-2023 Episodic Unclassified (5 sources) Postoperative physical examination; Translations: [Encounter for other specified surgical aftercare] Onset: 02-07-2017 02-07-2017 Urinary tract infections (14 sources) Chronic interstitial cystitis; Translations: [Interstitial cystitis (chronic) without hematuria] 12-28-2021 Chronic Past or Other Problems Problem Classification Problem Date Documented Date Episodic/Chronic Cataract (13 sources) Cataract 01-29-2022 Other aftercare (3 sources) Encounter for other specified surgical aftercare; Translations: [Encounter for other specified surgical aftercare] Onset: 02-07-2017 02-07-2017 Episodic Other non-traumatic joint disorders (15 sources) Pain in wrist; Translations: [Pain in unspecified wrist] Onset: 05-17-2016 05-17-2016 Episodic Residual codes; unclassified (8 sources) History of repair of umbilical hernia; Translations: [Other specified postprocedural states] Onset: 07-03-2022 01-13-2023 Episodic Residual codes; unclassified (2 sources) Other specified postprocedural states; Translations: [Personal history of surgery to other organs] Onset: 07-03-2022 01-12-2023 Episodic Urinary tract infections (19 sources) Urinary tract infection, site not specified; Translations: [Urinary tract infection, site not specified] Onset: 04-23-2024 Episodic Comment on above: interstim Results Test Name Value Interpretation Reference Range 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 Is patient in pain?: No Allergies cyclobenzaprine Allergy (Mild, Verified 11/18/24 14:20) other montelukast (From Singulair) Allergy (Verified 11/18/24 14:20) PT UNSURE OF REACTION latex Adverse Reaction (Verified 11/18/24 14:20) irritation oxycodone (From Percocet) Adverse Reaction (Verified 11/18/24 14:20) DIZZY,LIGHTHEADNES S Medications ???Medication ???Instructions ???Recorded ???Confirmed ???Type calcium carbonate 1,200 mg PO DAILY supplement 01/2411/18/24 History cholecalciferol (vitamin D3) 25 2,000 unit PO DAILY supplement 11/18/24 History mcg (1,000 unit) capsule cinnamon bark 500 mg capsule 1,000 mg PO 0800,1200 supplement 0 01/24/17 11/18/24 History lorazepam 0.5 mg tablet 0.5 - 1 mg PO DAILY PRN PRN Anxiet y 01/24/17 11/18/24 History msycrljahdcn-Di-zt on-minerals 1 ea PO DAILY supplement 01/24/17 11/18/24 History red yeast rice 600 mg capsule 600 mg PO 0800,1200 supplement 11/18/24 History fluticasone propionate 50 1 spray intranasal DAILY allergies 08/25/20 11/18/24 History mcg/actuation nasal spray,suspension famotidine 20 mg tablet (Pepcid) 20 mg PO DAILY PRN GERD 08/12/21 0 11/18/24 History ascorbic acid (vitamin C) 1,000 mg 1 g PO DAILY supplement 08/26/21 11/18/24 History tablet amlodipine 5 mg tablet 5 mg PO DAILY hypertension 2 11/18/24 History lisinopril 10 mg tablet 10 mg PO DAILY 05/09/22 11/18/24 H istory peg [id number] lycerin 1 1 drp EACH EYE BID PRN Dry Eyes 11/18/24 History %-0.2 %-0.2 % eye drops (Dry Eye Relief) acetaminophen 500 mg tablet 1,000 mg PO BID 03/11/24 11/18/24 History (Tylenol Extra Strength) dexamethasone 0.1 % eye 1 drp ophthalmic (eye) BID PRN 03/2611/18/24 History drops,suspension itching loratadine 10 mg tablet (Claritin) 10 mg PO DAILY 03/11/24 11/18/24 History amlodipine 2.5 mg tablet 2.5 mg PO DAILY 03/31/24 11/18/24 History ferrous sulfate 325 mg (65 mg 325 mg PO DAILY 05/27/24 11/18/24 History iron) tablet (Iron (ferrous sulfate)) estriol vaginal cream vaginal 11/18/24 History mecobalamin (vitamin B12) 500 mcg mcg PO DAILY 11/18/24 11/18/24 Hi story chewable tablet Is last menstrual period known: No Post menopausal: Yes Patient : No : No PFSH Medical History Wears partial dentures Wears glasses Post-menopausal Anxiety Arthritis Dietary restriction Gastric reflux Non-smoker History of edema H/O vaginal delivery Cystitis cataract surgery ( 2015) Back pain Neck pain Difficulty balancing Hay fever Seasonal allergies Heart disease Shoulder pain Hypertension Surgical History History of umbilical hernia repair ( 12/2022) Hx of bilateral cataract extraction History of carpal tunnel release of both wrists ( 2016) Family History Other Diabetes Heart disease Hypertension Social History household members: spouse current occupational status: retired Smoking Status: Never smoker alcohol intake: never substance use type: does not use caffeine: Yes what type of physical activity do you participate in: walking frequency: 5-6 times per week seatbelt use: always do you feel safe at home: Yes 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- History 2 Elective abortions Hx Para 2 Spontaneous abortions Hx # Term Pregnancies Ectopic pregnancies Hx # Pregnancies Multiple births # of living children HPI Encounter for routine gynecological examination Details: ABY TELLES is a 74 year old who presents for annual exam. Last PAP: no severe nl History of abnormal PAP: Last mammogram: 09/17/2023 - normal History of abnormal mammogram: Colon cancer screening: colonoscopy 2023 Other preventative health care screenings: PCP Alex. Dexa 2022. Female Reproductive History Questions: metorrhagia: No, sexually active: Yes, dyspareunia: No and PCB: No Menopausal Symptoms: No hot flashes, No night sweats, No weight change, No mood changes, No difficulty concentr (more content not included)... Normal [facility] Anion gap in Serum or Plasma Ordered By: Bassam Johnson on 09-30-2024 Anion gap [Moles/Vol] 13 mmol/L - [facility] BUN/creatinine ratioOrdered By: Bassam Johnson on 09-30-2024 Urea nitrogen/Creatinine [Mass ratio] 18.0 mg/mg - [facility] Basic Metabolic Profile (BMP )on 09-30-2024 BUN/CRE 18.0 RATIO Normal - [facility] Comment on above: Performed By: #### L 100.0500, L500.2500 #### [facility] [address] [place], [address] Calcium [Mass/Vol] 9.3 mg/dL Normal 7.6-11.0 [facility] Comment on above: Performed By: #### L 100.0500, L500.2500 #### [facility] [address] [place], [address] Chloride [Moles/Vol] 98 mmol/L Normal 98-108 [facility] Comment on above: Performed By: #### L 100.0500, L500.2500 #### [facility] [address] [place], [address] CO2 [Moles/Vol] 23.0 mmol/L Normal 21.0-32.0 [facility] Comment on above: Performed By: #### L 100.0500, L500.2500 #### [facility] [address] [place], [address] Creatinine [Mass/Vol] 1.38 mg/dL High 0.70-1.20 [facility] Comment on above: Performed By: #### L 100.0500, L500.2500 #### [facility] [address] [place], [address] GAP 13 Normal 5-15 [facility] Comment on above: Performed By: #### L 100.0500, L500.2500 #### [facility] [address] [place], [address] GFR/1.73 sq M.predicted among non-blacks MDRD (S/P/Bld) [Vol rate/Area] 40 mL/min/{1.73_m2} Low >60 [facility] Comment on above: Result Comment: mL/m in/1.73m2 CKD-EPI Creatinine Equation (2020) Performed By: #### L 100.0500, L500.2500 #### [facility] [address] [place], [address] Glucose [Mass/Vol] 101 mg/dL High 70-99 [facility] Comment on above: Performed By: #### L 100.0500, L500.2500 #### [facility] [address] [place], [address] Potassium [Moles/Vol] 3.9 mmol/L Normal 3.3-5.1 [facility] Comment on above: Result Comment: Hemo lysis present, Results??could be affected. ?? Performed By: #### L 100.0500, L500.2500 #### [facility] [address] [place], [address] Sodium [Moles/Vol] 134 mmol/L Normal 133-145 [facility] Comment on above: Performed By: #### L 100.0500, L500.2500 #### [facility] [address] [place], [address] Urea nitrogen [Mass/Vol] 25 mg/dL High 4-19 [facility] Comment on above: Performed By: #### L 100.0500, L500.2500 #### [facility] [address] [place], [address] CBC-Complete Blood Cnt No Di ffon 09-30-2024 Erythrocyte distribution width (RBC) [Ratio] 13.2 % Normal 11.6-14.6 [facility] Comment on above: Performed By: #### L 100.0500, L500.2500 #### [facility] [address] [place], [address] Hematocrit (Bld) [Volume fraction] 33.1 % Low 37-47 [facility] Comment on above: Performed By: #### L 100.0500, L500.2500 #### [facility] [address] [place], [address] Hemoglobin (Bld) [Mass/Vol] 11.7 g/dL Low 12.0-15.0 [facility] Comment on above: Performed By: #### L 100.0500, L500.2500 #### [facility] [address] [place], [address] MCH (RBC) [Entitic mass] 33.0 pg High 27.0-32.0 [facility] Comment on above: Performed By: #### L 100.0500, L500.2500 #### [facility] [address] [place], [address] MCHC (RBC) [Mass/Vol] 35.3 g/dL Normal 32-36 [facility] Comment on above: Performed By: #### L 100.0500, L500.2500 #### [facility] [address] [place], [address] MCV (RBC) [Entitic vol] 93.2 fL Normal 81-99 [facility] Comment on above: Performed By: #### L 100.0500, L500.2500 #### [facility] [address] [place], [address] Platelet mean volume (Bld) [Entitic vol] 8.9 fL Normal 6.2-12.0 [facility] Comment on above: Performed By: #### L 100.0500, L500.2500 #### [facility] [address] [place], [address] Platelets (Bld) [#/Vol] 385 10*3/uL Normal 150-450 [facility] Comment on above: Performed By: #### L 100.0500, L500.2500 #### [facility] [address] [place], [address] RBC (Bld) [#/Vol] 3.55 10*6/uL Low 4.2-5.4 [facility] Comment on above: Performed By: #### L 100.0500, L500.2500 #### [facility] [address] [place], [address] RDW SD 44.6 fl High 35.1-43.9 [facility] Comment on above: Performed By: #### L 100.0500, L500.2500 #### [facility] [address] [place], [address] WBC (Bld) [#/Vol] 9.3 10*3/uL Normal 4.4-11.0 [facility] Comment on above: Performed By: #### L 100.0500, L500.2500 #### [facility] [address] [place], [address] Carbon dioxide, total [Moles /volume] in Central venous bloodOrdered By: Bassam Johnson on 09-30-2024 CO2 [Moles/Vol] 23.0 mmol/L 21.0-32.0 [facility] Chloride assayOrdered By: Belen Johnson on 09-30-2024 Chloride [Moles/Vol] 98 mmol/L 98-108 [facility] Erythrocyte distribution wid th (RBC) [Ratio]Ordered By: Bassam Johnson on 09-30-2024 Erythrocyte distribution width (RBC) [Entitic vol] 44.6 fL High 35.1-43.9 [facility] Erythrocyte distribution wid th ratioOrdered By: Bassam Johnson on 09-30-2024 Erythrocyte distribution width (RBC) [Ratio] 13.2 % 11.6-14.6 [facility] Erythrocyte distribution wid th standard deviationOrdered By: Bassam Johnson on 09-30-2024 Erythrocyte distribution width (RBC) [Ratio] 44.6 fl High 35.1-43.9 [facility] GFR/1.73 sq M.predicted scott g non-blacks MDRD (S/P/Bld) [Vol rate/Area]Ordered By: Bassam Johnson on 09-30-2024 Estimated GFR (MDRD) Non-Af Amer 40 Low >60 [facility] Comment on above: mL/min/1.73m2 CKD-EP I Creatinine Equation (2020) Glomerular filtration rate ( GFR) estimation/1.73 sq m using serum, plasma, or whole bOrdered By: Bassam Johnson on 09-30-2024 GFR/1.73 sq M.predicted among non-blacks MDRD (S/P/Bld) [Vol rate/Area] 40 mL/min/{1.73_m2} Low >60 [facility] Comment on above: mL/min/1.73m2 CKD-EP I Creatinine Equation (2020) Hematocrit Auto (Bld) [Volum e fraction]Ordered By: Bassam Johnson on 09-30-2024 Hematocrit (Bld) [Volume fraction] 33.1 % Low 37-47 [facility] Hemoglobin measurementOrdere d By: Bassam Johnson on 09-30-2024 Hemoglobin (Bld) [Mass/Vol] 11.7 g/dL Low 12.0-15.0 [facility] MCV (mean corpuscular volume ) determinationOrdered By: Bassam Johnson on 09-30-2024 MCV (RBC) [Entitic vol] 93.2 fL 81-99 [facility] Mean corpuscular hemoglobin (MCH) determinationOrdered By: Bassam Johnson on 09-30-2024 MCH (RBC) [Entitic mass] 33.0 pg High 27.0-32.0 [facility] Mean corpuscular hemoglobin concentration (MCHC) determinationOrdered By: Bassam Johnson on 09-30-2024 MCHC (RBC) [Mass/Vol] 35.3 g/dL 32-36 [facility] Mean platelet volume determi nationOrdered By: Bassam Johnson on 09-30-2024 Platelet mean volume (Bld) [Entitic vol] 8.9 fL 6.2-12.0 [facility] Platelet countOrdered By: Belen Johnson on 09-30-2024 Platelets (Bld) [#/Vol] 385 10*3/uL 150-450 [facility] Potassium (Unsp spec) [Mass/ Vol]Ordered By: Bassam Johnson on 09-30-2024 Potassium [Moles/Vol] 3.9 mmol/L 3.3-5.1 [facility] Comment on above: Hemolysis present, R esults could be affected. Potassium measurement (mass/ volume)Ordered By: Bassam Johnson on 09-30-2024 Potassium (Unsp spec) [Mass/Vol] 3.9 mmol/L 3.3-5.1 [facility] Comment on above: Hemolysis present, R esults could be affected. RBC Auto (Bld) [#/Vol]Ordere d By: Bassam Johnson on 09-30-2024 RBC (Bld) [#/Vol] 3.55 10*6/uL Low 4.2-5.4 [facility] Serum creatinine measurement (mass/volume)Ordered By: Bassam Johnson on 09-30-2024 Creatinine [Mass/Vol] 1.38 mg/dL High 0.70-1.20 [facility] Serum glucose measurement (m ass/volume)Ordered By: Bassam Johnson on 09-30-2024 Glucose [Mass/Vol] 101 mg/dL High 70-99 [facility] Serum or plasma calcium ata urement (mass/volume)Ordered By: Bassam Johnson on 09-30-2024 Calcium [Mass/Vol] 9.3 mg/dL 7.6-11.0 [facility] Serum or plasma urea nitroge n measurement (mass/volume)Ordered By: Bassam Johnson on 09-30-2024 Urea nitrogen [Mass/Vol] 25 mg/dL High 4-19 [facility] Sodium levelOrdered By: Bre Johnson on 09-30-2024 Sodium [Moles/Vol] 134 mmol/L 133-145 [facility] White blood cell (WBC) count Ordered By: Bassam Johnson on 09-30-2024 WBC (Bld) [#/Vol] 9.3 10*3/uL 4.4-11.0 [facility] Breast imaging reportOrdered By: Everardo Ann on 09-16-2024 Study report [facility] Imaging Services [address] [place] [address] SCRN MAMM (CAD)W/DEBBIE BILAT MR#: [id number] Acct: [id number] Name: ABY TELLES Rep #: [id number] : 1950 F 74 From: Perfecto Ann MD PCP: Dr. Bassam Johnson MD Status: [facility] Yonathan HOLLOWAY Study:SCRN MAMM (CAD)W/DEBBIE BILAT Date of Exa m: 09/16/24 Exam# [id number] Ordering Dr: Lore Smith MD EXAM: SCRN MAMM (CAD)W/DEBBIE BILAT DATE: 09/16/2024 CLINICAL HISTORY: F, Age 74 y/o , SCREENING MAMMOGRAM WITH BREAST CANCER. Sister with breast cancer. Mother with breast cancer. BREAST CANCER RISK ASSESSMENT: Not assessed. TECHNIQUE: Bilateral screening digital breast tomosynthesis with 2D and 3D images. Computeraided detection. COMPARISON: Prior exam(s) dating back to comparison is made with prior study dated August.. FINDINGS: Bilateral Breast Mammographic Findings: No significant masses, calcifications or other abnormalities are identified. TISSUE DENSITY: The breast tissue is almost entirely fatty. Stable bilateral fat containing axillary lymph nodes. No suspicious masses, areas of developing architectural distortion, or suspicious calcifications. BI/SCRN MAMM (CAD)W/DEBBIE BILAT IMPRESSION: Normal interval followup mammograms are recommended in 12 months. A letter with findings and recommendations will be mailed to the patient. ASSESSMENT: BIRADS 2 BENIGN FINDING RECOMMENDATION: 1: ROUTINE ANNUAL FOLLOW-UP Bilateral in 1 Year Reading Location: [place] [address] CC: Dr. Bassam Johnson MD; Dr. Lore Scanlon MD ~ Compliance Tester: Signed [facility] SCRN MAMM (CAD)W/DEBBIE BILATo n 09-16-2024 SCRN MAMM (CAD)W/DEBBIE BILAT [facility] Imaging Services [address] [place] [id number] SCRN MAMM (CAD)W/DEBBIE BILAT MR#: [id number] Acct: [id number] Name: ABY TELLES Rep #: [id number] : 1950 F 74 From: Everardo cornejo MD PCP: Dr. Bassam Johnson MD Status: [facility] Study: SCRN MAMM (CAD)W/DEBBIE BILAT Date of Exam: 08/31 01/24 Exam# [id number] Ordering Dr: Lore Scanlon EXAM: SCRN MAMM (CAD)W/DEBBIE BILAT DATE: 09/16/2024 CLINICAL HISTORY: F, Age 74 y/o , SCREENING MAMMOGRAM WITH BREAST CANCER. Sister with breast cancer. Mother with breast cancer. BREAST CANCER RISK ASSESSMENT: Not assessed. TECHNIQUE: Bilateral screening digital breast tomosynthesis with 2D and 3D images. Computer aided detection. COMPARISON: Prior exam(s) dating back to comparison is made with prior study dated September 15, 2023.. FINDINGS: Bilateral Breast Mammographic Findings: No significant masses, calcifications or other abnormalities are identified. TISSUE DENSITY: The breast tissue is almost entirely fatty. Stable bilateral fat containing axillary lymph nodes. No suspicious masses, areas of developing architectural distortion, or suspicious calcifications. BI/SCRN MAMM (CAD)W/DEBBIE BILAT IMPRESSION: Normal interval followup mammograms are recommended in 12 months. A letter with findings and recommendations will be mailed to the patient. ASSESSMENT: BIRADS 2 BENIGN FINDING RECOMMENDATION: 1: ROUTINE ANNUAL FOLLOW-UP Bilateral in 1 Year Reading Location: [place] [address] CC: Dr. Bassam Johnson MD; Dr. Lore Scanlon MD Compliance Tester: Signed Normal [facility] Colonoscopy Reporton 05-29-2 024 Colonoscopy Report [facility] Medical Records Department [address] [place] [address] Colonoscopy Report MR#: [id number] Acct: [id number] Name: ABY TELLES Rep #: [id number] : 1950 73 From: Loli Chan MD PCP: Dr. Bassam Johnson MD Status:[facility] Patient Name: Aby Telles Procedure Date: 05/29/2024 7:29 AM Date of : 1950 Age: 73 Procedure: Colonoscopy Indications: Screening for colorectal malignant neoplasm Providers: Loli Chan MD Referring MD: Bassam Johnson Medicines: Monitored Anesthesia Care Patient Profile: This is a 73 year old female. Last Colonoscopy: none. The patient's first colonoscopy is today. Complications: No immediate complications. Procedure: Pre-Anesthesia Assessment: - Prior to the procedure, a History and Physical was performed, and patient medications and allergies were reviewed. The patient's tolerance of previous anesthesia was also reviewed. The risks and benefits of the procedure and the sedation options and risks were discussed with the patient. All questions were answered, and informed consent was obtained. Prior Anticoagulants: The patient has taken no anticoagulant or antiplatelet agents. ASA Grade Assessment: Per anesthesia. After reviewing the risks and benefits, the patient was deemed in satisfactory condition to undergo the procedure. After I obtained informed consent, the scope was passed under direct vision. Throughout the procedure, the patient's blood pressure, pulse, and oxygen saturations were monitored continuously. The colonoscope was introduced through the anus and advanced to the cecum, identified by the appendiceal orifice, ileocecal valve and palpation. The colonoscopy was performed without difficulty. The patient tolerated the procedure well. The quality of the bowel preparation was good. Scope In: 7:40:24 AM Scope Withdrawal Time 0 hours 8 minutes 24 seconds Scope Out: 8:01:14 AM Total Procedure Duration Time 0 hours 20 minutes 50 seconds Findings: The perianal and digital rectal examinations were normal. Two sessile polyps were found in the rectum. The polyps were less than 5 mm in size. These polyps were removed with a cold biopsy forceps. Resection and retrieval were complete. The exam was otherwise without abnormality on direct and retroflexion views. Impression: - Two less than 5 mm polyps in the rectum, removed with a cold biopsy forceps. Resected and retrieved. - The examination was otherwise normal on direct and retroflexion views. Recommendation: - Discharge patient to home. - Resume previous diet. - Continue present medications. - Await pathology results. - Repeat colonoscopy in 5-10 years for surveillance based on pathology results. - Depending on overall health at that time Procedure Code(s): --- Professional --- 73803, PT, Colonoscopy, flexible; with biopsy, single or multiple Diagnosis Code(s): --- Professional --- Z12.11, Encounter for screening for malignant neoplasm of colon D12.8, Benign neoplasm of rectum CPT copyright 2021 [employer]. All rights reserved. The codes documented in this report are preliminary and upon principal technical specialist review may be revised to meet current compliance requirements. MD Loli Julio MD 05/29/2024 8:04:51 AM This report has been signed electronically. Number of Addenda: 0 Note Initiated On: 05/29/2024 7:29 AM 05/29/24 0804 Date Loli Burnetteignnuris Signature: Date (if indicated) CC: Dr. Basasm Johnson MD; Dr. Loli Chan MD Date Dictated: 05/29/24728 Date Transcribed: Compliance Tester: TR Signed [facility] MR/POSTOP.ANEon 05-29-2024 MR/POSTOP.[facility] Medical Records Department [address] [place] [address] Anesthesia Postop Eval I 05/29/24809 MR#: [id number] Acct: [id number] Name: ABY TELLES Rep #: [id number] : 1950 73 From: Fermin Mcghee PCP: Dr. Bassam Johnson MD Status:[facility] Y Race: C Location: [place] [address] Anesthesia: Postop Eval I Current Vital Signs Temperature: 97.6 F Pulse Rate: 81 Blood Pressure: 86/53 Respiratory Rate: 16 Pulse Ox: 93 Oxygen Delivery Method: Room Air Assessment Airway patent: Yes Spontaneous unlabored respirations: Yes Mental status: Asleep nausea: No Vomiting: No Anesthesia Complication: No Fluid Hydration Crystalloid volume administer (ml): 60 Total IV fluid infused: 60 Progress Note Anesthesia document: Postop Eval 1 completed: Yes 05/29/24810 Date Fermin Restrepo Signature: Date CC: Signed [facility] MR/[id number] 05-29-2024 MR/POSTOPAN2 [facility] Medical Records Department [address] [place] [address] Anesthesia Postop Eval II 05/29/24954 MR#: [id number] Acct: [id number] Name: ABY TELLES Rep #: [id number] : 1950 73 From: Pedro Zhang MD PCP: Dr. Bassam Johnson MD Status:DEP [facility] Y Race: C Location: EN Anesthesia Postop Eval I Sum Postop Eval Completion status Anesthesia document: Postop Eval 1 completed: Yes Anesthesia Postop Eval I Summary Anesthesia Postop Eval I Summary: Anesthesia Postop Eval I: Assessment Summary Airway patent Yes 05/29/24 08:11 [email or web address] Spontaneous unlabored Yes 05/29/24 08:11 [email or web address] respirations Mental status Asleep 05/29/24 08:11 [email or web address] nausea No 05/29/24 08:11 [email or web address] Vomiting No 05/29/24 08:11 [email or web address] Anesthesia Postop Eval I: Fluid Summary Crystalloid volume administer 60 05/29/24 08:11 [email or web address] (ml) Colloids volume administered ( ml) Blood Product volume administered (ml) Total IV fluid infused 60 05/29/24 08:11 [email or web address] Anesthesia Postop Eval I: Summary Notes Anesthesia Complication No 05/29/24 08:11 [email or web address] Anesthesia Complication Comment: Post-operative progress note Anesthesia: Postop Eval II Evaluation Mental status: Awake Pain Level: 0 nausea: No Vomiting: No 05/29/2455 Date Pedro Restrepo Signature: Date CC: Signed Normal [facility] Surgery Specimen Level Duy 05-29-2024 Surgery Specimen Level IV -- Patient Age/Sex Location Account Attending Physician -- ABY TELLES 73/F EN [id number] Dr. Loli Chan MD -- Specimen: [id number] Received: 05/29/24 Status: LENNY Guerra Num: [id number] Spec Type: COLON BX Subm Dr: Dr. Loli Chan MD HEADER OPERATION: Colonoscopy PRE-OP DIAGNOSIS: Screening TISSUE SUBMITTED: Rectal polyp -- MICROSCOPIC DIAGNOSIS Rectal polyp, biopsy: Fragments of hyperplastic polyp. AM. 05/31/2024 MICROSCOPIC DESCRIPTION Slides are reviewed. GROSS DESCRIPTION Received in fixative is one container labeled with the patient's name and designated "Rectal polyp." The specimen consists of two irregular fragments of light leigh soft tissue that in aggregate measure 0.5 x 0.5 x 0.1 cm. The specimen is totally submitted in one cassette. AM. 05/29/2024 TC:5 CPT:76024 -- Patient Age/Sex Location Account Attending Physician -- DEEPALIABY Jaja 73/F EN [id number] Dr. Loli Chan MD -- Signed (signatu re on file) Dr. hSashank Razo DO 05/31/246 -- Normal [facility] Comment on above: Performed By: #### P SUFLOR #### [facility] [address] [place], [place] [address], [address] Urine Cultureon 04-03-2024 [facility] Escherichia coli [place] Count 80,000-100,000 Streptococcus agalactiae (B) Streptococcus agalactiae (B) * This is an amended result. * A prior result that was reported as final has been changed. 04/03/24727 by DORA Previously reported as: [] * This is an amended result. * A prior result that was reported as final has been changed. 04/03/24728 by DORA Escherichia coli: REACTION Ampicillin Islt JOANNA 4 S Ampicillin+Sulbac Islt JOANNA <=2 ceFAZolin Islt JOANNA <=4 S Cefepime Islt JOANNA <=0.12 S cefTRIAXone Islt JOANNA <=0.25 S Ciprofloxacin Islt JOANNA <=0.25 S B-Lactamase Extended Susc Islt NEG Gentamicin Islt JOANNA <=1 S Imipenem Islt JOANNA <=0.25 S levoFLOXacin Islt JOANNA <=0.12 S Nitrofurantoin Islt JOANNA <=16 S Pip+Tazo Islt JOANNA <=4 S Tobramycin Islt JOANNA <=1 S TMP SMX Islt JOANNA <=20 S Streptococcus agalactiae (B): REACTION Ampicillin Islt JOANNA <=0.25 S Penicillin G Islt JOANNA <=0.06 cefTRIAXone Islt JOANNA <=0.12 S Clindamycin Islt JOANNA R Clindamycin.induce d Susc Islt POS Linezolid Islt JOANNA <=2 S Vancomycin Islt JOANNA 0.5 S Normal [facility] Comment on above: Performed By: #### L 100.0500, L500.2500 #### [facility] [address] [place], [address] Basic Metabolic Profile (BMP )on 03-31-2024 BUN/CRE 17.3 RATIO Normal - [facility] Comment on above: Order Comment: SP ECIMEN IS MODERATELY LIPEMIC Performed By: #### L 100.0100, L500.2500 #### [facility] [address] [place], [address] CA,Total 8.8 mg/dL Normal 8.5-10.1 [facility] Comment on above: Order Comment: SP ECIMEN IS MODERATELY LIPEMIC Performed By: #### L 100.0100, L500.2500 #### [facility] [address] [place], [address] Chloride [Moles/Vol] 102 mmol/L Normal 98-107 [facility] Comment on above: Order Comment: SP ECIMEN IS MODERATELY LIPEMIC Performed By: #### L 100.0100, L500.2500 #### [facility] [address] [place], [address] CO2 [Moles/Vol] 25.0 mmol/L Normal 21.0-32.0 [facility] Comment on above: Order Comment: SP ECIMEN IS MODERATELY LIPEMIC Performed By: #### L 100.0100, L500.2500 #### [facility] [address] [place], [address] Creatinine [Mass/Vol] 1.33 mg/dL High 0.55-1.02 [facility] Comment on above: Order Comment: SP ECIMEN IS MODERATELY LIPEMIC Result Comment: The validity of the calculated GFR GFRAA in patients over 70 years has not been determined. Clinical correlation is essential. Performed By: #### L 100.0100, L500.2500 #### [facility] [address] [place], [address] ECRCL 32.26 ml/min Normal [facility] Comment on above: Order Comment: SP ECIMEN IS MODERATELY LIPEMIC Performed By: #### L 100.0100, L500.2500 #### [facility] [address] [place], [address] EST GFR - AA 50 mL/min Low >60 [facility] Comment on above: Order Comment: SP ECIMEN IS MODERATELY LIPEMIC Result Comment: Afri can Jamaican GFR Calc Performed By: #### L 100.0100, L500.2500 #### [facility] [address] [place], [address] GAP 7 Normal 5-15 [facility] Comment on above: Order Comment: SP ECIMEN IS MODERATELY LIPEMIC Performed By: #### L 100.0100, L500.2500 #### [facility] [address] [place], [address] GFR/1.73 sq M.predicted among non-blacks MDRD (S/P/Bld) [Vol rate/Area] 41 mL/min/{1.73_m2} Low >60 [facility] Comment on above: Order Comment: SP ECIMEN IS MODERATELY LIPEMIC Result Comment: Non- GFR Calc Performed By: #### L 100.0100, L500.2500 #### [facility] [address] [place], [address] Glucose [Mass/Vol] 132 mg/dL High 74-106 [facility] Comment on above: Order Comment: SP ECIMEN IS MODERATELY LIPEMIC Result Comment: Fast ing Glucose result greater than or equal to 126 mg/dL suggests DIABETES MELLITUS per A.D.A. criteria. Performed By: #### L 100.0100, L500.2500 #### [facility] [address] [place], [address] Potassium [Moles/Vol] 4.2 mmol/L Normal 3.5-5.1 [facility] Comment on above: Order Comment: SP ECIMEN IS MODERATELY LIPEMIC Performed By: #### L 100.0100, L500.2500 #### [facility] [address] [place], [address] Sodium [Moles/Vol] 134 mmol/L Low 136-145 [facility] Comment on above: Order Comment: SP ECIMEN IS MODERATELY LIPEMIC Performed By: #### L 100.0100, L500.2500 #### [facility] [address] [place], [address] Urea nitrogen [Mass/Vol] 23 mg/dL High 7-18 [facility] Comment on above: Order Comment: SP ECIMEN IS MODERATELY LIPEMIC Performed By: #### L 100.0100, L500.2500 #### [facility] [address] [place], [address] CBC W/Diff, Automatedon 09-2 Absolute Lymph 1.74 X10 3/uL Normal 0.83-4.51 [facility] Comment on above: Performed By: #### L 100.0100, L500.2500 #### [facility] [address] [place], [address] Absolute Neut 5.2 X10 3/uL Normal 2.0-7.7 [facility] Comment on above: Performed By: #### L 100.0100, L500.2500 #### [facility] [address] [place], [address] Basophils/100 WBC (Bld) 1.3 % High 0-1 [facility] Comment on above: Performed By: #### L 100.0100, L500.2500 #### [facility] [address] [place], [address] Eosinophils/100 WBC (Bld) 2.2 % Normal 0-5 [facility] Comment on above: Performed By: #### L 100.0100, L500.2500 #### [facility] [address] [place], [address] Erythrocyte distribution width (RBC) [Ratio] 12.8 % Normal 11.6-14.6 [facility] Comment on above: Performed By: #### L 100.0100, L500.2500 #### [facility] [address] [place], [address] Hematocrit (Bld) [Volume fraction] 31.5 % Low 37-47 [facility] Comment on above: Performed By: #### L 100.0100, L500.2500 #### [facility] [address] [place], [address] Hemoglobin (Bld) [Mass/Vol] 11.0 g/dL Low 12.0-15.0 [facility] Comment on above: Performed By: #### L 100.0100, L500.2500 #### [facility] [address] [place], [address] IG% 0.500 Normal 0.0-0.9 [facility] Comment on above: Result Comment: IG% - Immature Granulocytes (promyelocytes, myelocytes and metamyelocytes) > 1% indicates that a LEFT SHIFT is Present. Performed By: #### L 100.0100, L500.2500 #### [facility] [address] [place], [address] Lymphocytes/100 WBC (Bld) 22.3 % Normal 19-41 [facility] Comment on above: Performed By: #### L 100.0100, L500.2500 #### [facility] [address] [place], [address] MCH (RBC) [Entitic mass] 32.7 pg High 27.0-32.0 [facility] Comment on above: Performed By: #### L 100.0100, L500.2500 #### [facility] [address] [place], [address] MCHC (RBC) [Mass/Vol] 34.9 g/dL Normal 32-36 [facility] Comment on above: Performed By: #### L 100.0100, L500.2500 #### [facility] [address] [place], [address] MCV (RBC) [Entitic vol] 93.8 fL Normal 81-99 [facility] Comment on above: Performed By: #### L 100.0100, L500.2500 #### [facility] [address] [place], [address] Monocytes/100 WBC (Bld) 7.3 % Normal 0-10 [facility] Comment on above: Performed By: #### L 100.0100, L500.2500 #### [facility] [address] [place], [address] Neutrophils/100 WBC (Bld) 66.4 % Normal 47-70 [facility] Comment on above: Performed By: #### L 100.0100, L500.2500 #### [facility] [address] [place], [address] Nucleated RBC (Bld) [#/Vol] 0 10*3/uL Normal 0-5 [facility] Comment on above: Performed By: #### L 100.0100, L500.2500 #### [facility] [address] [place], [address] Platelet mean volume (Bld) [Entitic vol] 9.1 fL Normal 6.2-12.0 [facility] Comment on above: Performed By: #### L 100.0100, L500.2500 #### [facility] [address] [place], [address] Platelets (Bld) [#/Vol] 319 10*3/uL Normal 150-450 [facility] Comment on above: Performed By: #### L 100.0100, L500.2500 #### [facility] [address] [place], [address] RBC (Bld) [#/Vol] 3.36 10*6/uL Low 4.2-5.4 [facility] Comment on above: Performed By: #### L 100.0100, L500.2500 #### [facility] [address] [place], [address] RDW SD 43.7 fl Normal 35.1-43.9 [facility] Comment on above: Performed By: #### L 100.0100, L500.2500 #### [facility] [address] [place], [address] WBC (Bld) [#/Vol] 7.8 10*3/uL Normal 4.4-11.0 [facility] Comment on above: Performed By: #### L 100.0100, L500.2500 #### [facility] [address] [place], [address] Emergency Department Summary on 03-31-2024 Emergency Department Summary [facility] Medical Records Department [address] [place] [address] Emergency Department Summary 03/31/24 MR#: [id number] Acct: [id number] Name: ABY TELLES Rep #: [id number] : 1950 73 From: Hossein North DO PCP: Dr. Bassam Johnson MD Status:DEP ER Location: ED HPI History of Present Illness Chief Complaint: Complaint Informant: patient Onset/Context/Timi gonzalez Onset: Days Context: Sudden Onset Timing: Continuous Quality: Burning Location: Vaginal area Worsened by: Urination Relieved by: Vagisil vaginal cream Narrative Narrative: Patient presents with urinary tract infection symptoms and vaginal candidiasis symptoms. Patient states that she saw Dr. Debora Morley last week. She ordered a urinalysis. She was also prescri bed Diflucan to take initially and a repeat dose to take in 3 days if she was not feeling any better. Patient states she took the second dose 2 days later with no improvement. Patient describes her pain as burning. Patient states it is worse with urination. Patient states she used Vagisil vaginal cream which helped. Patient denies any fevers or chills. [facility] Medical History Wears partial dentures Wears glasses Post-menopausal Anxiety Arthritis Dietary restriction Gastric reflux Non-smoker History of edema H/O vaginal delivery Cystitis cataract surgery ( 2016) Back pain Neck pain Difficulty balancing Hay fever Seasonal allergies Heart disease Shoulder pain Hypertension Home Medications ???Medication ???Instructions ???Recorded ???Last Taken ???Type calcium carbonate 1,200 mg PO DAILY supplement 01/24/17 11/22/21 History cholecalciferol (vitamin D3) 25 1,000 unit PO 0800,1200 supplement 01/24/17 11/22/21 History mcg (1,000 unit) capsule cinnamon bark 500 mg capsule 1,000 mg PO 0800,1200 supplement 01/24/17 11/22/21 History lorazepam 0.5 mg tablet 0.5 - 1 mg PO DAILY PRN PRN Anxiety 01/24/17 12/22/22 History mjsjskbwolex-Kd-ws on-minerals 1 ea PO DAILY supplement 01/24/17 11/22/21 History red yeast rice 600 mg capsule 600 mg PO 0800,1200 supplement 01/24/17 11/22/21 History conjugated estrogens 0.625 mg/gram 0.625 mg vaginal MOFR Check with 08/25/20 11/19/21 History vaginal cream (Premarin) primary doctor fluticasone propionate 50 1 spray intranasal DAILY allergies 08/25/20 11/22/21 History mcg/actuation nasal spray,suspension famotidine 20 mg tablet (Pepcid) 20 mg PO DAILY PRN GERD 08/12/21 Unknown History ascorbic acid (vitamin C) 1,000 mg 1 g PO DAILY supplement 08/26/21 11/22/21 History tablet amlodipine 5 mg tablet 7.5 mg PO DAILY hypertension 05/09/22 12/22/22 History lisinopril 10 mg tablet 10 mg PO DAILY 05/09/22 12/22/22 History peg 138-[id number]-j lycerin 1 1 drp EACH EYE BID PRN Dry Eyes 12/14/22 Unknown History %-0.2 %-0.2 % eye drops (Dry Eye Relief) ferrous fumarate 63 mg (20 mg mg PO 10/20/23 Unknown History iron) tablet acetaminophen 500 mg tablet 1,000 mg PO BID 03/11/24 Unknown History (Tylenol Extra Strength) dexamethasone 0.1 % eye 1 drp ophthalmic (eye) BID 03/11/24 Unknown History drops,suspension loratadine 10 mg tablet (Claritin) 10 mg PO DAILY PRN 03/11/24 Unknown History prednisone 10 mg tablets in a dose 10 mg PO DIRECTED PRN 03/11/24 Unknown History pack amlodipine 2.5 mg tablet 2.5 mg PO DAILY 03/31/24 Unknown History cephalexin 500 mg capsule 500 mg PO Q6 #12 CAPSULES 03/31/24 Unknown Rx fluconazole 150 mg tablet 150 mg PO X1 #2 tabs 03/31/24 Unknown Rx Allergy/AdvReac Type Severity Reaction Status Date / Time cyclobenzaprine Allergy Mild other Verified 03/31/24 12:40 montelukast (From Singulair) Allergy PT UNSURE Verified 03/31/24 12:40 OF REACTION latex AdvReac irritation Verified 03/31/24 12:40 oxycodone (From Percocet) AdvReac DIZZY,LIGHT Verified 03/31/24 12:40 HEADNESS Family History Other Diabetes Heart disease Hypertension Surgical History History of umbilical hernia repair ( 12/2022) Hx of bilateral cataract extraction History of carpal tunnel release of both wrists ( 2016) Social History household members: spouse current occupational status: retired Smoking Status: Never smoker alcohol intake: never substance use type: does not use caffeine: Yes what type of physical activity do you participate in: walking frequency: 5-6 times per week seatbelt use: always do you feel safe at home: Yes additional social history: Amrita CHACKO ED Constitutional Constitutional ED: Denies chills or fever(s) Eyes Eyes: Denies blurry vision or change i (more content not included)... Normal [facility] Urinalysis, Completeon 03-31 BACTERIA 3+ /hpf Normal None Seen [facility] Comment on above: Order Comment: CLEAN CATCH Performed By: #### L 400.0001 #### [facility] [address] [place], [address] EPI,RENAL 5-10 SEEN Normal 0-5 [facility] Comment on above: Order Comment: CLEAN CATCH Performed By: #### L 400.0001 #### [facility] [address] [place], [address] EPI,SQUAMOUS 10-25 SEEN Normal 5-10 [facility] Comment on above: Order Comment: CLEAN CATCH Performed By: #### L 400.0001 #### [facility] [address] [place], [address] WBC >100 SEEN Normal 0-5 [facility] Comment on above: Order Comment: CLEAN CATCH Performed By: #### L 400.0001 #### [facility] [address] [place], [address] BILIRUBIN URINE Negative Normal Negative [facility] Comment on above: Order Comment: CLEAN CATCH Performed By: #### L 400.0001 #### [facility] [address] [place], [address] Clarity (U) Cloudy Normal Clear [facility] Comment on above: Order Comment: CLEAN CATCH Performed By: #### L 400.0001 #### [facility] [address] [place], [address] Color (U) Yellow Normal Yellow [facility] Comment on above: Order Comment: CLEAN CATCH Performed By: #### L 400.0001 #### [facility] [address] [place], [address] GLUCOSE, UR Normal Normal Normal [facility] Comment on above: Order Comment: CLEAN CATCH Performed By: #### L 400.0001 #### [facility] [address] [place], [address] KETONE UR Negative Normal Negative [facility] Comment on above: Order Comment: CLEAN CATCH Performed By: #### L 400.0001 #### [facility] [address] [place] [id number] LEUK ESTERASE 500 /ul Abnormal Negative [facility] Comment on above: Order Comment: CLEAN CATCH Performed By: #### L 400.0001 #### [facility] [address] [place] [address] Nitrite Ql (U) Negative Normal Negative [facility] Comment on above: Order Comment: CLEAN CATCH Performed By: #### L 400.0001 #### [facility] [address] [place] [id number] OCCULT BLOOD-UR 10 /ul Abnormal Negative [facility] Comment on above: Order Comment: CLEAN CATCH Performed By: #### L 400.0001 #### [facility] [address] [place] [address] pH UR 6.0 Normal 5.0 - 8.0 [facility] Comment on above: Order Comment: CLEAN CATCH Performed By: #### L 400.0001 #### [facility] [address] [place] [address] PROT DIPSTX 30 mg/dl Abnormal Negative [facility] Comment on above: Order Comment: CLEAN CATCH Performed By: #### L 400.0001 #### [facility] [address] [place], [address] SP.GR. DIPSTX 1.010 Normal 1.002-1.030 [facility] Comment on above: Order Comment: CLEAN CATCH Performed By: #### L 400.0001 #### [facility] [address] [place] [address] UROBILI Normal Normal Normal [facility] Comment on above: Order Comment: CLEAN CATCH Performed By: #### L 400.0001 #### [facility] [address] [place] [address] Mucus Ql (Urine sed) 0 SEEN Normal [facility] Comment on above: Order Comment: CLEAN CATCH Performed By: #### L 400.0001 #### [facility] [address] [place], [address] RBC 0 SEEN Normal 0-5 [facility] Comment on above: Order Comment: CLEAN CATCH Performed By: #### L 400.0001 #### [facility] [address] [place], [address] 12 Lead EKGon 03-21-2024 12 Lead EKG [facility] Cardiovascular Services [address] [place] [address] 12 Lead EKG 03/21/24 1215 MR#: [id number] Acct: [id number] Name: ABY TELLES Rep #: [id number] : 1950 73 From: Ignacio Peng MD Attending Dr: Status: DEP ER Ordering Dr: Corey Smith DO Date: 4 Location: ED Sex: F C Admitted: Test Reason : CP Blood Pressure : / mmHG Vent. Rate : 059 BPM Atrial Rate : 059 BPM P-R Int : 158 ms QRS Dur : 090 ms QT Int : 424 ms P-R-T Axes : 032 -21 014 degrees QTc Int : 419 ms Sinus bradycardia Minimal voltage criteria for LVH, may be normal variant ( R in aVL ) Borderline ECG Confirmed by Ignacio Peng ([id number]), nurse CHRISTY TOVAR ([id number]) on 03/25/2024 10:48:43 AM Referred By: Confirmed By:Ignacio Peng 03/25/24 1048 Date Ignacio Peng MD CC: Dr. Jose Smith DO; Dr. Bassam Johnson MD Signed Normal [facility] Brain/Head without Contrasto n 03-21-2024 Brain/Head without Contrast [facility] Imaging Services [address] [place] [address] Brain/Head without Contrast MR#: [id number] Acct: [id number] Name: ABY TELLES Rep #: [id number] : 1950 F 73 From: Dennys Botello MD PCP: Dr. Bassam Johnson MD Status: REG ER Study: Brain/Head without Contrast Date of Exam: 03/03 03/26 Exam# [id number] Ordering Dr: Corey Smith DO [id number] STUDY: CT BRAIN WITHOUT CONTRAST REASON FOR EXAM: Female, 73 years old. Headache RADIATION DOSAGE (If Supplied By Facility): CTDIvol = ( 44.99 ) mGy, DLP = ( 745.49 ) mGycm TECHNIQUE: Transaxial CT imaging of the brain was performed without administration of intravenous contrast material. Individualized dose optimization techniques were used for this CT. COMPARISON: No relevant priors. FINDINGS: Normal soft tissue structures. Normal calvarium. Calcific plaquing of the cavernous carotids Mild cortical atrophy and periventricular white matter hypoattenuation most likely due to chronic small vessel ischemic changes . Normal basal ganglia and thalami. Normal brainstem. Normal cerebellum. There is no intracranial hemorrhage. There are no findings of an acute ischemic infarction. Normal visualized paranasal sinuses. CT/Brain/Head without Contrast IMPRESSION: Mild atrophy and periventricular white matter ischemic changes. No evidence for obstructive hydrocephalus mass or acute bleed Electronically Signed: Dennys Botello MD at 17:18 EDT , CC: Dr. Jose Smith DO; Dr. Bassam Johnson MD Compliance Tester: Signed Normal [facility] CBC W/Diff, Automatedon 09- Absolute Lymph 1.46 X10 3/uL Normal 0.83-4.51 [facility] Comment on above: Performed By: #### L 100.0100, L500.4050 #### [facility] [address] [place], [address] Absolute Neut 6.1 X10 3/uL Normal 2.0-7.7 [facility] Comment on above: Performed By: #### L 100.0100, L500.4050 #### [facility] [address] [place], [address] Basophils/100 WBC (Bld) 1.0 % Normal 0-1 [facility] Comment on above: Performed By: #### L 100.0100, L500.4050 #### [facility] [address] [place], [address] Eosinophils/100 WBC (Bld) 1.4 % Normal 0-5 [facility] Comment on above: Performed By: #### L 100.0100, L500.4050 #### [facility] [address] [place], [address] Erythrocyte distribution width (RBC) [Ratio] 12.8 % Normal 11.6-14.6 [facility] Comment on above: Performed By: #### L 100.0100, L500.4050 #### [facility] [address] [place], [address] Hematocrit (Bld) [Volume fraction] 33.7 % Low 37-47 [facility] Comment on above: Performed By: #### L 100.0100, L500.4050 #### [facility] [address] [place], [address] Hemoglobin (Bld) [Mass/Vol] 11.5 g/dL Low 12.0-15.0 [facility] Comment on above: Performed By: #### L 100.0100, L500.4050 #### [facility] [address] [place], [address] IG% 0.400 Normal 0.0-0.9 [facility] Comment on above: Result Comment: IG% - Immature Granulocytes (promyelocytes, myelocytes and metamyelocytes) > 1% indicates that a LEFT SHIFT is Present. Performed By: #### L 100.0100, L500.4050 #### [facility] [address] [place], [address] Lymphocytes/100 WBC (Bld) 17.5 % Low 19-41 [facility] Comment on above: Performed By: #### L 100.0100, L500.4050 #### [facility] [address] [place], [address] MCH (RBC) [Entitic mass] 32.5 pg High 27.0-32.0 [facility] Comment on above: Performed By: #### L 100.0100, L500.4050 #### [facility] [address] [place], [address] MCHC (RBC) [Mass/Vol] 34.1 g/dL Normal 32-36 [facility] Comment on above: Performed By: #### L 100.0100, L500.4050 #### [facility] [address] [place], [address] MCV (RBC) [Entitic vol] 95.2 fL Normal 81-99 [facility] Comment on above: Performed By: #### L 100.0100, L500.4050 #### [facility] [address] [place], [address] Monocytes/100 WBC (Bld) 7.0 % Normal 0-10 [facility] Comment on above: Performed By: #### L 100.0100, L500.4050 #### [facility] [address] [place], [address] Neutrophils/100 WBC (Bld) 72.7 % High 47-70 [facility] Comment on above: Performed By: #### L 100.0100, L500.4050 #### [facility] [address] [place], [address] Nucleated RBC (Bld) [#/Vol] 0 10*3/uL Normal 0-5 [facility] Comment on above: Performed By: #### L 100.0100, L500.4050 #### [facility] [address] [place], [address] Platelet mean volume (Bld) [Entitic vol] 9.1 fL Normal 6.2-12.0 [facility] Comment on above: Performed By: #### L 100.0100, L500.4050 #### [facility] [address] [place], [address] Platelets (Bld) [#/Vol] 339 10*3/uL Normal 150-450 [facility] Comment on above: Performed By: #### L 100.0100, L500.4050 #### [facility] [address] [place], [address] RBC (Bld) [#/Vol] 3.54 10*6/uL Low 4.2-5.4 [facility] Comment on above: Performed By: #### L 100.0100, L500.4050 #### [facility] [address] [place], [address] RDW SD 44.8 fl High 35.1-43.9 [facility] Comment on above: Performed By: #### L 100.0100, L500.4050 #### [facility] [address] [place], [address] WBC (Bld) [#/Vol] 8.3 10*3/uL Normal 4.4-11.0 [facility] Comment on above: Performed By: #### L 100.0100, L500.4050 #### [facility] [address] [place], [address] Comprehensive Metabolic Prof ilon 03-21-2024 Albumin [Mass/Vol] 3.7 g/dL Normal 3.2-5.0 [facility] Comment on above: Performed By: #### L 100.0100, L500.4050 #### [facility] [address] [place], [address] Albumin/Globulin [Mass ratio] 1.0 {ratio} Normal 0.9-2.4 [facility] Comment on above: Performed By: #### L 100.0100, L500.4050 #### [facility] [address] [place], [address] ALK P 57 U/L Normal 45-117 [facility] Comment on above: Performed By: #### L 100.0100, L500.4050 #### [facility] [address] [place], [address] ALT [Catalytic activity/Vol] 33 U/L Normal 13-56 [facility] Comment on above: Performed By: #### L 100.0100, L500.4050 #### [facility] [address] [place], [address] AST [Catalytic activity/Vol] 21 U/L Normal 15-37 [facility] Comment on above: Performed By: #### L 100.0100, L500.4050 #### [facility] [address] [place], [address] Bilirubin [Mass/Vol] 0.30 mg/dL Normal 0.20-1.00 [facility] Comment on above: Result Comment: For patients on eltrombopag therapy, use of Dimension [place] TBIL is not recommended. Performed By: #### L 100.0100, L500.4050 #### [facility] [address] [place], [address] BUN/CRE 16.1 RATIO Normal 10-20 [facility] Comment on above: Performed By: #### L 100.0100, L500.4050 #### [facility] [address] [place], [address] CA,Total 9.4 mg/dL Normal 8.5-10.1 [facility] Comment on above: Performed By: #### L 100.0100, L500.4050 #### [facility] [address] [place], [address] Chloride [Moles/Vol] 102 mmol/L Normal 98-107 [facility] Comment on above: Performed By: #### L 100.0100, L500.4050 #### [facility] [address] [place], [address] CO2 [Moles/Vol] 26.0 mmol/L Normal 21.0-32.0 [facility] Comment on above: Performed By: #### L 100.0100, L500.4050 #### [facility] [address] [place], [address] Creatinine [Mass/Vol] 1.24 mg/dL High 0.55-1.02 [facility] Comment on above: Result Comment: The validity of the calculated GFR GFRAA in patients over 70 years has not been determined. Clinical correlation is essential. Performed By: #### L 100.0100, L500.4050 #### [facility] [address] [place], [address] EST GFR - AA 54 mL/min Low >60 [facility] Comment on above: Result Comment: Afri can Jamaican GFR Calc Performed By: #### L 100.0100, L500.4050 #### [facility] [address] [place], [address] GAP 5 Normal 5-15 [facility] Comment on above: Performed By: #### L 100.0100, L500.4050 #### [facility] [address] [place], [address] GFR/1.73 sq M.predicted among non-blacks MDRD (S/P/Bld) [Vol rate/Area] 45 mL/min/{1.73_m2} Low >60 [facility] Comment on above: Result Comment: Non- GFR Calc Performed By: #### L 100.0100, L500.4050 #### [facility] [address] [place], [address] Globulin (S) [Mass/Vol] 3.7 g/dL Normal 2.2-4.2 [facility] Comment on above: Performed By: #### L 100.0100, L500.4050 #### [facility] [address] [place], [address] Glucose [Mass/Vol] 132 mg/dL High 74-106 [facility] Comment on above: Result Comment: Fast ing Glucose result greater than or equal to 126 mg/dL suggests DIABETES MELLITUS per A.D.A. criteria. Performed By: #### L 100.0100, L500.4050 #### [facility] [address] [place], [address] Potassium [Moles/Vol] 4.8 mmol/L Normal 3.5-5.1 [facility] Comment on above: Performed By: #### L 100.0100, L500.4050 #### [facility] [address] [place], [address] Sodium [Moles/Vol] 133 mmol/L Low 136-145 [facility] Comment on above: Performed By: #### L 100.0100, L500.4050 #### [facility] [address] [place], [address] T PROT 7.4 g/dL Normal 6.4-8.2 [facility] Comment on above: Performed By: #### L 100.0100, L500.4050 #### [facility] [address] [place], [address] Urea nitrogen [Mass/Vol] 20 mg/dL High 7-18 [facility] Comment on above: Performed By: #### L 100.0100, L500.4050 #### [facility] [address] [place], [address] Emergency Department Summary on 03-21-2024 Emergency Department Summary [facility] Medical Records Department [address] [place] [address] Emergency Department Summary 03/21/24 MR#: [id number] Acct: [id number] Name: ABY TELLES Rep #: [id number] : 1950 73 From: Jose Smith DO PCP: Dr. Bassam Johnson MD Status:DEP ER Location: ED HPI History of Present Illness Chief Complaint: Headache Narrative Narrative: Chief complaint and HPI: Headache. 73-year-old female with history of HTN presents for evaluation of headache. Patient states that she developed a headache throughout the day today. She states that she took Tylenol but the headache progressively worsened. She states she was worried maybe she had a stroke because she had a headache which is why she presents today. She denies any vision changes, numbness/tingling, weakness, dysarthria, aphasia. Patient states her only symptom is a headache. She denies any fever, chills, chest pain, shortness of breath, abdominal pain, nausea, vomiting, dysuria. Patient states since being in the waiting room her headache is improving. She describes her headache as frontal and bandlike. Denies any trauma or hitting her head. No lightheadedness, syncope. Review of systems: See HPI Medications: As listed on the chart Allergies: As listed on the chart PFSH: Per chart Vital signs: As listed on the chart. Reviewed. Physical exam: Gen: A O x3, NAD Head: Normocephalic, atraumatic Eyes: No sclera icterus, conjunctiva clear, PERRL, EOMI ENT: Tympanic membranes clear bilaterally without inflammation or signs of infection, moist mucous membranes, No facial asymmetry Neck: Trachea midline, No JVD CV: RRR, no murmurs, no peripheral edema Resp: Lungs CTA BL, no w/r/c GI: Abd soft, non-distended, non-tender, no r/r/g Musc: Full ROM, no deformity, strength +5/5 in all extremities, no pronator drift, no ataxia, DTR +2/5 Skin: Warm, dry, intact Neuro: Alert, oriented, grossly intact, sensation intact, no focal deficits, NIH 0 Psych: Cooperative, appropriate mood and affect [facility] History Wears partial dentures Wears glasses Post-menopausal Anxiety Arthritis Dietary restriction Gastric reflux Non-smoker History of edema H/O vaginal delivery Cystitis cataract surgery ( 2016) Back pain Neck pain Difficulty balancing Hay fever Seasonal allergies Heart disease Shoulder pain Hypertension Home Medications ???Medication ???Instructions ???Recorded ???Last Taken ???Type calcium carbonate 1,200 mg PO DAILY supplement 01/24/17 11/22/21 History cholecalciferol (vitamin D3) 25 1,000 unit PO 0800,1200 supplement 01/24/17 11/22/21 History mcg (1,000 unit) capsule cinnamon bark 500 mg capsule 1,000 mg PO 0800,1200 supplement 01/24/17 11/22/21 History lorazepam 0.5 mg tablet 0.5 - 1 mg PO DAILY PRN PRN Anxiety 01/24/17 12/22/22 History llzwuomctkrx-Zi-wq on-minerals 1 ea PO DAILY supplement 01/24/17 11/22/21 History red yeast rice 600 mg capsule 600 mg PO 0800,1200 supplement 01/24/17 11/22/21 History conjugated estrogens 0.625 mg/gram 0.625 mg vaginal MOFR Check with 08/25/20 11/19/21 History vaginal cream (Premarin) primary doctor fluticasone propionate 50 1 spray intranasal DAILY allergies 08/25/20 11/22/21 History mcg/actuation nasal spray,suspension famotidine 20 mg tablet (Pepcid) 20 mg PO DAILY PRN GERD 08/12/21 Unknown History ascorbic acid (vitamin C) 1,000 mg 1 g PO DAILY supplement 08/26/21 11/22/21 History tablet amlodipine 5 mg tablet 7.5 mg PO DAILY hypertension 05/09/22 12/22/22 History lisinopril 10 mg tablet 10 mg PO DAILY 05/09/22 12/22/22 History peg [id number] lycerin 1 1 drp EACH EYE BID PRN Dry Eyes 12/14/22 Unknown History %-0.2 %-0.2 % eye drops (Dry Eye Relief) ferrous fumarate 63 mg (20 mg mg PO 10/20/23 Unknown History iron) tablet acetaminophen 500 mg tablet 1,000 mg PO BID 03/11/24 Unknown History (Tylenol Extra Strength) dexamethasone 0.1 % eye 1 drp ophthalmic (eye) BID 03/11/24 Unknown History drops,suspension loratadine 10 mg tablet (Claritin) 10 mg PO DAILY PRN 03/11/24 Unknown History prednisone 10 mg tablets in a dose 10 mg PO DIRECTED PRN 03/11/24 Unknown History pack Allergy/AdvReac Type Severity Reaction Status Date / Time cyclobenzaprine Allergy Mild other Verified 03/21/24 11:56 montelukast (From Singulair) Allergy PT UNSURE Verified 03/21/24 11:56 OF REACTION latex AdvReac irritation Verified 03/21/24 11:56 oxycodone (From Percocet) AdvReac DIZZY,LIGHT Verified 03/21/24 11:56 HEADNESS Family History Other Diabetes Heart disease Hypertension Surgical History History of umbilical hernia repair ( (more content not included)... Normal [facility] Urinalysis, Completeon 03-21 BACTERIA Normal None Seen [facility] Comment on above: Order Comment: COLLE CTOR TO SPECIFY Result Comment: Canc elled via OM: CANCEL Performed By: #### L 400.0001 #### [facility] [address] [place], [address] BILIRUBIN URINE Normal Negative [facility] Comment on above: Order Comment: FREDDIE CTOR TO SPECIFY Result Comment: Canc elled via OM: CANCEL Performed By: #### L 400.0001 #### [facility] [address] [place], [address] Clarity (U) Normal Clear [facility] Comment on above: Order Comment: FREDDIE CTOR TO SPECIFY Result Comment: Canc elled via OM: CANCEL Performed By: #### L 400.0001 #### [facility] [address] [place], [address] Color (U) Normal Yellow [facility] Comment on above: Order Comment: FREDDIE CTOR TO SPECIFY Result Comment: Canc elled via OM: CANCEL Performed By: #### L 400.0001 #### [facility] [address] [place], [address] EPI,SQUAMOUS Normal 5-10 [facility] Comment on above: Order Comment: FREDDIE CTOR TO SPECIFY Result Comment: Canc elled via OM: CANCEL Performed By: #### L 400.0001 #### [facility] [address] [place], [address] GLUCOSE, UR Normal Normal [facility] Comment on above: Order Comment: FREDDIE CTOR TO SPECIFY Result Comment: Canc elled via OM: CANCEL Performed By: #### L 400.0001 #### [facility] [address] [place], [address] KETONE UR Normal Negative [facility] Comment on above: Order Comment: FREDDIE CTOR TO SPECIFY Result Comment: Canc elled via OM: CANCEL Performed By: #### L 400.0001 #### [facility] [address] [place], [address] LEUK ESTERASE Normal Negative [facility] Comment on above: Order Comment: FREDDIE CTOR TO SPECIFY Result Comment: Canc elled via OM: CANCEL Performed By: #### L 400.0001 #### [facility] [address] [place], [address] Mucus Ql (Urine sed) Normal [facility] Comment on above: Order Comment: FREDDIE CTOR TO SPECIFY Result Comment: Canc elled via OM: CANCEL Performed By: #### L 400.0001 #### [facility] [address] [place], [address] Nitrite Ql (U) Normal Negative [facility] Comment on above: Order Comment: FREDDIE CTOR TO SPECIFY Result Comment: Canc elled via OM: CANCEL Performed By: #### L 400.0001 #### [facility] [address] [place], [address] OCCULT BLOOD-UR Normal Negative [facility] Comment on above: Order Comment: FREDDIE CTOR TO SPECIFY Result Comment: Canc elled via OM: CANCEL Performed By: #### L 400.0001 #### [facility] [address] [place], [address] pH UR Normal 5.0 - 8.0 [facility] Comment on above: Order Comment: FREDDIE CTOR TO SPECIFY Result Comment: Canc elled via OM: CANCEL Performed By: #### L 400.0001 #### [facility] [address] [place], [address] PROT DIPSTX Normal Negative [facility] Comment on above: Order Comment: FREDDIE CTOR TO SPECIFY Result Comment: Canc elled via OM: CANCEL Performed By: #### L [id number] #### [facility] [address] [place], [address] RBC Normal 0-5 [facility] Comment on above: Order Comment: FREDDIE CTOR TO SPECIFY Result Comment: Canc elled via OM: CANCEL Performed By: #### L [id number] #### [facility] [address] [place], [address] SP.GR. DIPSTX Normal 1.002-1.030 [facility] Comment on above: Order Comment: COLLE CTOR TO SPECIFY Result Comment: Canc elled via OM: CANCEL Performed By: #### L [id number] #### [facility] [address] [place], [address] UR Preservative Normal [facility] Comment on above: Order Comment: COLLE CTOR TO SPECIFY Result Comment: Canc elled via OM: CANCEL Performed By: #### L [id number] #### [facility] [address] [place], [address] UROBILI Normal Normal [facility] Comment on above: Order Comment: COLLE CTOR TO SPECIFY Result Comment: Canc elled via OM: CANCEL Performed By: #### L [id number] #### [facility] [address] [place], [address] WBC Normal 0-5 [facility] Comment on above: Order Comment: COLLE CTOR TO SPECIFY Result Comment: Canc elled via OM: CANCEL Performed By: #### L [id number] #### [facility] [address] [place], [address] Basophil percentageOrdered B y: Bassam Johnson on 05-17-2023 Sodium [Moles/Vol] 136 mmol/L 136-145 [facility] Basophil percentageOrdered B y: Rachel Velez on 04-25-2023 Chloride [Moles/Vol] 104 mmol/L 98-107 [facility] Glucose [Mass/Vol] 105 mg/dL 74-106 [facility] Comment on above: Fasting Glucose resu lt from 100 to 125 mg/dL suggests IMPAIRED HOMEOSTASIS per A.D.A. criteria. Potassium [Moles/Vol] 4.2 mmol/L 3.5-5.1 [facility] Sodium [Moles/Vol] 135 mmol/L 136-145 [facility] - Chemistry and C hemistry - challengeOrdered By: Rachel Velez on 04-25-2023 CO2 [Moles/Vol] 25.0 mmol/L 21.0-32.0 [facility] Urea nitrogen/Creatinine [Mass ratio] 14.4 mg/mg 10- [facility] No Panel InformationOrdered By: Rachel Velez on 04-25-2023 Estimated Creatinine Clearance Calc 30.50 ml/min [facility] Estimated GFR (MDRD) Amer 58 mL/min >60 [facility] Comment on above: GFR Calc Estimated GFR (MDRD) Non-Af Amer 48 mL/min >60 [facility] Comment on above: Non- GFR Calc Serum or plasma calcium ata urement (mass/volume)Ordered By: Rachel Velez on 04-25-2023 Calcium [Mass/Vol] 8.5 mg/dL 8.5-10.1 [facility] Serum or plasma creatinine m easurement (mass/volume)Ordered By: Rachel Velez on 04-25-2023 Creatinine [Mass/Vol] 1.18 mg/dL 0.55-1.02 [facility] Comment on above: The validity of the calculated GFR & GFRAA in patients over 70 years has not been determined. Clinical correlation is essential. Serum or plasma urea nitroge n measurement (mass/volume)Ordered By: Rachel Velez on 04-25-2023 Urea nitrogen [Mass/Vol] 17 mg/dL 7-18 [facility] Thin prep Papanicolaou smear with manual screeningOrdered By: Rachel Velez on 04-25-2023 Thin prep Papanicolaou smear with manual screening 6 5-15 [facility] Basophil percentageOrdered B y: Debora Toussaint on 04-24-2023 Chloride [Moles/Vol] 105 mmol/L 98-107 [facility] Glucose [Mass/Vol] 167 mg/dL 74-106 [facility] Comment on above: Fasting Glucose resu lt greater than or equal to 126 mg/dL suggests DIABETES MELLITUS per A.D.A. criteria. Potassium [Moles/Vol] 4.1 mmol/L 3.5-5.1 [facility] Sodium [Moles/Vol] 131 mmol/L 136-145 [facility] WBC (Bld) [#/Vol] 6.1 10*3/uL 4.4-11.0 [facility] Blood erythrocytes count (nu mber/volume)Ordered By: Debora Toussaint on 04-24-2023 RBC (Bld) [#/Vol] 3.43 10*6/uL 4.2-5.4 [facility] Blood hemoglobin measurement (mass/volume)Ordered By: Debora Toussaint on 04-24-2023 Hemoglobin (Bld) [Mass/Vol] 10.9 g/dL 12.0-15.0 [facility] Blood platelet mean volumeOr dered By: Debora Toussaint on 04-24-2023 Platelet mean volume (Bld) [Entitic vol] 9.4 fL 6.2-12.0 [facility] Determination of erythrocyte mean corpuscular volume (MCV)Ordered By: Debora Toussaint on 04-24-2023 MCV (RBC) [Entitic vol] 95.9 fL 81-99 [facility] Hematocrit Auto (Bld) [Volum e fraction]Ordered By: Debora Toussaint on 04-24-2023 Hematocrit (Bld) [Volume fraction] 32.9 % 37-47 [facility] - Chemistry and C hemistry - challengeOrdered By: Debora Toussaint on 04-24-2023 CO2 [Moles/Vol] 24.0 mmol/L 21.0-32.0 [facility] Urea nitrogen/Creatinine [Mass ratio] 14.8 mg/mg 10-20 [facility] - Hematology and Cell countsOrdered By: Debora Toussaint on 04-24-2023 Erythrocyte distribution width (RBC) [Entitic vol] 44.6 fL 35.1-43.9 [facility] Erythrocyte distribution width (RBC) [Ratio] 12.8 % 11.6-14.6 [facility] MCH (RBC) [Entitic mass] 31.8 pg 27.0-32.0 [facility] MCHC Auto (RBC) [Mass/Vol]Or dered By: Debora Toussaint on 04-24-2023 MCHC (RBC) [Mass/Vol] 33.1 g/dL 32-36 [facility] No Panel InformationOrdered By: Debora Toussaint on 04-24-2023 Estimated GFR (MDRD) Amer 55 mL/min >60 [facility] Comment on above: GFR Calc Estimated GFR (MDRD) Non-Af Amer 46 mL/min >60 [facility] Comment on above: Non- GFR Calc Platelets bldOrdered By: Graeme Toussaint on 04-24-2023 Platelets (Bld) [#/Vol] 349 10*3/uL 150-450 [facility] Serum or plasma calcium ata urement (mass/volume)Ordered By: Debora Toussaint on 04-24-2023 Calcium [Mass/Vol] 8.7 mg/dL 8.5-10.1 [facility] Serum or plasma creatinine m easurement (mass/volume)Ordered By: Debora Toussaint on 04-24-2023 Creatinine [Mass/Vol] 1.22 mg/dL 0.55-1.02 [facility] Comment on above: The validity of the calculated GFR & GFRAA in patients over 70 years has not been determined. Clinical correlation is essential. Serum or plasma urea nitroge n measurement (mass/volume)Ordered By: Debora Toussaint on 04-24-2023 Urea nitrogen [Mass/Vol] 18 mg/dL 7-18 [facility] Thin prep Papanicolaou smear with manual screeningOrdered By: Debora Toussaint on 04-24-2023 Thin prep Papanicolaou smear with manual screening 2 5-15 [facility] Bilirubin Test strip Ql (U)O rdered By: Bassam Johnson on 01-06-2023 Bilirubin Ql (U) Negative Negative [facility] Culture, urineOrdered By: Belen Johnson on 01-06-2023 Bacteria identified Cx Nom (U) Escherichia coli [facility] Ketones Test strip Ql (U)Ord ered By: Bassam Johnson on 01-06-2023 Ketones Ql (U) Negative Negative [facility] Nitrite Test strip Ql (U)Ord ered By: Bassam Johnson on 01-06-2023 Nitrite Ql (U) Negative Negative [facility] Protein Test strip Ql (U)Ord ered By: Bassam Johnson on 01-06-2023 Protein Ql (U) 15 mg/dl Negative [facility] Urine blood detectionOrdered By: Bassam Johnson on 01-06-2023 RBC Ql (U) 10 /ul Negative [facility] Urine clarityOrdered By: Sinai Johnson on 01-06-2023 Clarity (U) Sl. Cloudy Clear [facility] Urine color determinationOrd ered By: Bassam Johnson on 01-06-2023 Color (U) Yellow Yellow [facility] Urine glucose detectionOrder ed By: Bassam Johnson on 01-06-2023 Glucose Ql (U) Normal mg/dl Normal [facility] Urine leukocyte esterase det ection by dipstickOrdered By: Bassam Johnson on 01-06-2023 Leukocyte esterase Test strip Ql (U) 500 /ul Negative [facility] Urine pHOrdered By: Bassam Lee on 01-06-2023 pH (U) 6.0 [pH] 5.0 - 8.0 [facility] Urine specific gravity measu rementOrdered By: Bassam Johnson on 01-06-2023 Specific gravity (U) [Rel density] 1.015 1.002-1.030 [facility] Urobilinogen Auto test strip Ql (U)Ordered By: Bassam Johnson on 01-06-2023 Urobilinogen Ql (U) Normal mg/dl Normal [facility] Laboratory - Chemistry and C hemistry - challengeon 12-28-2021 Bilirubin Ql (U) Negative [facility] Work Phone: Glucose Ql (U) Negative [facility] Work Phone: Ketones Ql (U) Small (15+) [facility] Work Phone: pH (U) 5.0 [pH] [facility] Work Phone: Specific gravity (U) [Rel density] 1.025 [facility] Work Phone: Urobilinogen (U) [Mass/Vol] 0.2054359 mg/dL [facility] Work Phone: Laboratory - Hematology and Cell countson 12-28-2021 Hemoglobin Ql (U) Negative [facility] Work Phone: Laboratory - Specimen inform ationon 12-28-2021 Clarity (U) Cloudy [facility] Work Phone: Color (U) Yellow [facility] Work Phone: Laboratory - Urinalysison Nitrite Ql (U) Negative [facility] Work Phone: Protein Ql (U) 1+ [facility] Work Phone: No Panel Informationon 12-28 Urine Leukocytes Positive [facility] Work Phone: Absolute lymphocyte counton 11-24-2021 Lymphocytes Auto (Unsp spec) [#/Vol] 1.82 10*3/uL 0.83-4.51 [facility] Work Phone: Basophil percentageon 2021 Basophils/100 WBC (Bld) 0.7 % 0-1 [facility] Work Phone: Bilirubin [Mass/Vol] 0.40 mg/dL 0.20-1.00 [facility] Work Phone: Comment on above: For patients on eltr ombopag therapy, use of Dimension [place] TBIL is not recommended. Chloride [Moles/Vol] 106 mmol/L 98-107 [facility] Work Phone: Eosinophils/100 WBC (Bld) 2.6 % 0-5 [facility] Work Phone: Glucose [Mass/Vol] 90 mg/dL 74-106 [facility] Work Phone: Neutrophils (Bld) [#/Vol] 4.1 10*3/uL 2.0-7.7 [facility] Work Phone: Neutrophils/100 WBC (Bld) 59.9 % 47-70 [facility] Work Phone: Potassium [Moles/Vol] 4.5 mmol/L 3.5-5.1 [facility] Work Phone: Protein [Mass/Vol] 6.7 g/dL 6.4-8.2 [facility] Work [facility]: Sodium [Moles/Vol] 136 mmol/L 136-145 [facility] Work [facility]: WBC (Bld) [#/Vol] 6.9 10*3/uL 4.4-11.0 [facility] Work Phone: Blood erythrocytes count (nu mber/volume)on 11-24-2021 RBC (Bld) [#/Vol] 3.38 10*6/uL 4.2-5.4 [facility] Work [facility]: Blood hemoglobin measurement (mass/volume)on 11-24-2021 Hemoglobin (Bld) [Mass/Vol] 10.8 g/dL 12.0-15.0 [facility] Work Phone: Blood lymphocytes/100 leukoc yteson 11-24-2021 Lymphocytes/100 WBC (Bld) 26.4 % 19-41 [facility] Work Phone: Blood monocytes/100 leukocyt eson 11-24-2021 Monocytes/100 WBC (Bld) 10.3 % 0-10 [facility] Work Phone: Blood platelet mean volumeon 11-24-2021 Platelet mean volume (Bld) [Entitic vol] 9.1 fL 6.2-12.0 [facility] Work Phone: Determination of erythrocyte mean corpuscular volume (MCV)on 11-24-2021 MCV (RBC) [Entitic vol] 94.7 fL 81-99 [facility] Work Phone: Hematocrit Auto (Bld) [Volum e fraction]on 11-24-2021 Hematocrit (Bld) [Volume fraction] 32.0 % 37-47 [facility] Work Phone: Laboratory - Chemistry and C hemistry - challengeon 11-24-2021 ALP [Catalytic activity/Vol] 51 U/L 45-117 [facility] Work Phone: ALT [Catalytic activity/Vol] 22 U/L 13-56 [facility] Work Phone: CO2 [Moles/Vol] 26.0 mmol/L 21.0-32.0 [facility] Work Phone: Globulin (S) [Mass/Vol] 3.4 g/dL 2.2-4.2 [facility] Work Phone: Urea nitrogen/Creatinine [Mass ratio] 17.7 mg/mg 10-20 [facility] Work Phone: Laboratory - Hematology and Cell countson 11-24-2021 Erythrocyte distribution width (RBC) [Entitic vol] 43.9 fL 35.1-43.9 [facility] Work Phone: Erythrocyte distribution width (RBC) [Ratio] 12.8 % 11.6-14.6 [facility] Work Phone: Immature granulocytes/100 WBC (Bld) 0.100 % 0.0-0.9 [facility] Work Phone: Comment on above: IG% - Immature Granu locytes (promyelocytes, myelocytes and metamyelocytes) > 1% indicates that a LEFT SHIFT is Present. MCH (RBC) [Entitic mass] 32.0 pg 27.0-32.0 [facility] Work Phone: Nucleated RBC/100 WBC (Bld) [Ratio] 0 % 0-5 [facility] Work Phone: MCHC Auto (RBC) [Mass/Vol]on 11-24-2021 MCHC (RBC) [Mass/Vol] 33.8 g/dL 32-36 [facility] Work Phone: No Panel Informationon 11-24 Estimated Creatinine Clearance Calc 33.96 ml/min [facility] Work Phone: Estimated GFR (MDRD) Amer 61 mL/min >60 [facility] Work Phone: Comment on above: GFR Calc Estimated GFR (MDRD) Non-Af Amer 50 mL/min >60 [facility] Work Phone: Comment on above: Non- GFR Calc Platelets bldon 11-24-2021 Platelets (Bld) [#/Vol] 299 10*3/uL 150-450 [facility] Work Phone: Serum or plasma albumin ata urement (mass/volume)on 11-24-2021 Albumin [Mass/Vol] 3.3 g/dL 3.2-5.0 [facility] Work Phone: Serum or plasma albumin/glob ulin mass ratioon 11-24-2021 Albumin/Globulin [Mass ratio] 1.0 {ratio} 0.9-2.4 [facility] Work Phone: Serum or plasma calcium ata urement (mass/volume)on 11-24-2021 Calcium [Mass/Vol] 8.5 mg/dL 8.5-10.1 [facility] Work Phone: Serum or plasma creatinine m easurement (mass/volume)on 11-24-2021 Creatinine [Mass/Vol] 1.13 mg/dL 0.55-1.02 [facility] Work Phone: Comment on above: The validity of the calculated GFR & GFRAA in patients over 70 years has not been determined. Clinical correlation is essential. Serum or plasma urea nitroge n measurement (mass/volume)on 11-24-2021 Urea nitrogen [Mass/Vol] 20 mg/dL 7-18 [facility] Work Phone: Thin prep Papanicolaou smear with manual screeningon 11-24-2021 Thin prep Papanicolaou smear with manual screening 22 U/L 15-37 [facility] Work Phone: Thin prep Papanicolaou smear with manual screening 4 5-15 [facility] Work Phone: Absolute lymphocyte counton 11-22-2021 Lymphocytes Auto (Unsp spec) [#/Vol] 2.36 10*3/uL 0.83-4.51 [facility] Work Phone: Basophil percentageon 2021 Basophils/100 WBC (Bld) 0.9 % 0-1 [facility] Work Phone: Bilirubin [Mass/Vol] 0.40 mg/dL 0.20-1.00 [facility] Work Phone: Comment on above: For patients on eltr ombopag therapy, use of Dimension [place] TBIL is not recommended. Chloride [Moles/Vol] 101 mmol/L 98-107 [facility] Work Phone: Eosinophils/100 WBC (Bld) 2.2 % 0-5 [facility] Work Phone: Glucose [Mass/Vol] 112 mg/dL 74-106 [facility] Work Phone: Comment on above: Fasting Glucose resu lt from 100 to 125 mg/dL suggests IMPAIRED HOMEOSTASIS per A.D.A. criteria. Neutrophils (Bld) [#/Vol] 6.9 10*3/uL 2.0-7.7 [facility] Work Phone: Neutrophils/100 WBC (Bld) 66.1 % 47-70 [facility] Work Phone: Potassium [Moles/Vol] 4.2 mmol/L 3.5-5.1 [facility] Work Phone: Protein [Mass/Vol] 7.4 g/dL 6.4-8.2 [facility] Work Phone: Sodium [Moles/Vol] 134 mmol/L 136-145 [facility] Work Phone: WBC (Bld) [#/Vol] 10.4 10*3/uL 4.4-11.0 [facility] Work Phone: Blood erythrocytes count (nu mber/volume)on 11-22-2021 RBC (Bld) [#/Vol] 3.63 10*6/uL 4.2-5.4 [facility] Work Phone: Blood hemoglobin measurement (mass/volume)on 11-22-2021 Hemoglobin (Bld) [Mass/Vol] 11.6 g/dL 12.0-15.0 [facility] Work Phone: Blood lymphocytes/100 leukoc yteson 11-22-2021 Lymphocytes/100 WBC (Bld) 22.8 % 19-41 [facility] Work Phone: Blood monocytes/100 leukocyt eson 11-22-2021 Monocytes/100 WBC (Bld) 7.1 % 0-10 [facility] Work Phone: Blood platelet mean volumeon 11-22-2021 Platelet mean volume (Bld) [Entitic vol] 9.3 fL 6.2-12.0 [facility] Work Phone: Determination of erythrocyte mean corpuscular volume (MCV)on 11-22-2021 MCV (RBC) [Entitic vol] 93.7 fL 81-99 [facility] Work Phone: Direct bilirubinon Bilirubin.direct [Mass/Vol] 0.11 mg/dL 0.00-0.30 [facility] Work Phone: Hematocrit Auto (Bld) [Volum e fraction]on 11-22-2021 Hematocrit (Bld) [Volume fraction] 34.0 % 37-47 [facility] Work Phone: Laboratory - Chemistry and C hemistry - challengeon 11-22-2021 ALP [Catalytic activity/Vol] 62 U/L 45-117 [facility] Work Phone: ALT [Catalytic activity/Vol] 27 U/L 13-56 [facility] Work Phone: CO2 [Moles/Vol] 26.0 mmol/L 21.0-32.0 [facility] Work Phone: Globulin (S) [Mass/Vol] 3.4 g/dL 2.2-4.2 [facility] Work Phone: Lipase [Catalytic activity/Vol] 291 U/L 73-393 [facility] Work Phone: Urea nitrogen/Creatinine [Mass ratio] 16.3 mg/mg 10-20 [facility] Work Phone: Laboratory - Hematology and Cell countson 11-22-2021 Erythrocyte distribution width (RBC) [Entitic vol] 43.0 fL 35.1-43.9 [facility] Work Phone: Erythrocyte distribution width (RBC) [Ratio] 12.4 % 11.6-14.6 [facility] Work Phone: Immature granulocytes/100 WBC (Bld) 0.900 % 0.0-0.9 [facility] Work Phone: Comment on above: IG% - Immature Granu locytes (promyelocytes, myelocytes and metamyelocytes) > 1% indicates that a LEFT SHIFT is Present. MCH (RBC) [Entitic mass] 32.0 pg 27.0-32.0 [facility] Work Phone: Nucleated RBC/100 WBC (Bld) [Ratio] 0 % 0-5 [facility] Work Phone: MCHC Auto (RBC) [Mass/Vol]on 11-22-2021 MCHC (RBC) [Mass/Vol] 34.1 g/dL 32-36 [facility] Work Phone: No Panel Informationon 11-22 Estimated Creatinine Clearance Calc 27.21 ml/min [facility] Work Phone: Estimated GFR (MDRD) Amer 47 mL/min >60 [facility] Work Phone: Comment on above: GFR Calc Estimated GFR (MDRD) Non-Af Amer 39 mL/min >60 [facility] Work Phone: Comment on above: Non- GFR Calc Troponin I High Sensitivity 18 pg/mL 3.0-54.0 [facility] Work Phone: Comment on above: Please Note: New Anne t Units and Gender Specific Reference Ranges. For more information see Policy Stat Procedure [place] High Sensitivity Troponin (TNIH) and attachments. Platelets bldon 11-22-2021 Platelets (Bld) [#/Vol] 360 10*3/uL 150-450 [facility] Work Phone: Serum or plasma albumin ata urement (mass/volume)on 11-22-2021 Albumin [Mass/Vol] 4.0 g/dL 3.2-5.0 [facility] Work Phone: Serum or plasma calcium ata urement (mass/volume)on 11-22-2021 Calcium [Mass/Vol] 9.2 mg/dL 8.5-10.1 [facility] Work Phone: Serum or plasma creatinine m easurement (mass/volume)on 11-22-2021 Creatinine [Mass/Vol] 1.41 mg/dL 0.55-1.02 [facility] Work Phone: Comment on above: The validity of the calculated GFR & GFRAA in patients over 70 years has not been determined. Clinical correlation is essential. Serum or plasma urea nitroge n measurement (mass/volume)on 11-22-2021 Urea nitrogen [Mass/Vol] 23 mg/dL 7-18 [facility] Work Phone: Thin prep Papanicolaou smear with manual screeningon 11-22-2021 Thin prep Papanicolaou smear with manual screening 20 U/L 15-37 [facility] Work Phone: Thin prep Papanicolaou smear with manual screening 7 5-15 [facility] Work Phone: Culture, urineon 08-12-2021 Bacteria identified Cx Nom (U) Escherichia coli [facility] Work Phone: Gram stain for investigation of transfusion reactionon 08-12-2021 Microscopic observation Gram stain Nom (Unsp spec) [facility] Work Phone: Laboratory - Chemistry and C hemistry - challengeon 08-12-2021 Bilirubin Ql (U) Negative [facility] Work Phone: Glucose Ql (U) Negative [facility] Work Phone: Ketones Ql (U) Negative [facility] Work Phone: pH (U) 8.5 [pH] [facility] Work Phone: Specific gravity (U) [Rel density] 1.005 [facility] Work Phone: Urobilinogen (U) [Mass/Vol] Negative [facility] Work Phone: Laboratory - Hematology and Cell countson 08-12-2021 Hemoglobin Ql (U) Negative [facility] Work Phone: Laboratory - Specimen inform ationon 08-12-2021 Clarity (U) Clear [facility] Work Phone: Color (U) YELLOW [facility] Work Phone: Laboratory - Urinalysison Nitrite Ql (U) Negative [facility] Work Phone: Protein Ql (U) Negative [facility] Work Phone: No Panel Informationon 08-12 Urine Leukocytes Positive [facility] Work Phone: Urine Non-Hemolyzed Blood Negative [facility] Work Phone: Thin prep Papanicolaou smear with manual screeningon 08-12-2021 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 [facility] Work Phone: Office Visiton 05-04-2017 Documentation of current medications (procedure) Done Invalid Interpretation Code [facility] Work Phone: Tobacco use CPHS Never smoker Invalid Interpretation Code [facility] Work Phone: Office Visiton 04-04-2017 Documentation of current medications (procedure) Done Invalid Interpretation Code [facility] Work Phone: Protein mass conc Done Invalid Interpretation Code [facility] Work Phone: Tobacco smoking status NHIS Never smoker Invalid Interpretation Code [facility] Work Phone: Tobacco use CPHS Never smoker Invalid Interpretation Code [facility] Work Phone: Office Visiton 03-07-2017 Documentation of current medications (procedure) Done Invalid Interpretation Code [facility] Work Phone: Tobacco use CPHS Never smoker Invalid Interpretation Code [facility] Work Phone: Office Visiton 02-07-2017 Documentation of current medications (procedure) Done Invalid Interpretation Code [facility] Work Phone: Office Visiton 01-17-2017 Documentation of current medications (procedure) Done Invalid Interpretation Code [facility] Work Phone: Protein mass conc Done [facility] Work Phone: Tobacco smoking status NHIS Never smoker [facility] Work Phone: Tobacco use CPHS Never smoker Invalid Interpretation Code [facility] Work Phone: Office Visiton 11-08-2016 Documentation of current medications (procedure) Done Invalid Interpretation Code [facility] Work Phone: Tobacco smoking status NHIS Never smoker [facility] Work Phone: Tobacco use CPHS Never smoker Invalid Interpretation Code [facility] Work Phone: Culture, urine Bacteria identified Cx Nom (U) Presumptive E. coli [facility] Work Phone: Vital Signs Date Time Vital Sign Value Performing Clinician Facility 11-18-2024 14:29-0400 Diastolic blood pressure 76 mm[Hg] Dr. Bassam Johnson DO Work Phone: [facility] 11-18-2024 14:29-0400 Systolic blood pressure 145 mm[Hg] Dr. Bassam Johnson DO Work Phone: [facility] 11-18-2024 14:13-0400 Body height 154.[address] Bassam Johnson DO Work Phone: [facility] 11-18-2024 14:13-0400 Body mass index (BMI) [Ratio] 28 kg/m2 Dr. Bassam Johnson DO Work Phone: 5(297)441-585945 [place] [address] 11-18-2024 14:13-0400 Body weight 67.[address] Bassam Johnson DO Work Phone: 3(080)530-868345 [place] [address] 05-29-2024 08:45-0500 Body temperature 98.3 [degF] Dr. Bassam Johnson DO Work Phone: 0(289)471-641845 [place] [address] 05-29-2024 08:45-0500 Diastolic blood pressure 47 mm[Hg] Dr. Bassam Johnson DO Work Phone: 0(775)732-761845 [place] [address] 05-29-2024 08:45-0500 Heart rate 62 /min Dr. Bassam Johnson DO Work Phone: 6(093)239-906745 [place] [address] 05-29-2024 08:45-0500 Respiratory rate 16 /min Dr. Bassam Johnson DO Work Phone: 5(842)362-399145 [place] [address] 05-29-2024 08:45-0500 SaO2% (BldA) [Mass fraction] 95 % Dr. Bassam Johnson DO Work Phone: 3(911)463-604145 [place] [address] 05-29-2024 08:45-0500 Systolic blood pressure 95 mm[Hg] Dr. Bassam Johnson DO Work Phone: 3(924)384-042445 [place] [address] 05-29-2024 06:39-0500 Body height 154.[address] Bassam Johnson DO Work Phone: 0(058)959-204545 [place] [address] 05-29-2024 06:39-0500 Body mass index (BMI) [Ratio] 26.6 kg/m2 Dr. Bassam Johnson DO Work Phone: 6(397)976-100045 [place] [address] 05-29-2024 06:39-0500 Body weight [address] Bassam Johnson DO Work Phone: 9(429)744-596545 [place] [address] 10-20-2023 14:53-0400 Body height 152.[address] Bassam Johnson Work Phone: 4(896)643-179345 [place] [address] 10-20-2023 14:41-0400 Body mass index (BMI) [Ratio] 28.3 kg/m2 Dr. Bassam Johnson Work Phone: 3(622)650-607745 [place] [address] 10-20-2023 14:41-0400 Body weight 65.[address] Bassam Johnson Work Phone: 2(712)317-424145 [place] [address] 10-20-2023 14:41-0400 Diastolic blood pressure 69 mm[Hg] Dr. Bassam Johnson Work Phone: 3(390)680-665145 [place] [address] 10-20-2023 14:41-0400 Systolic blood pressure 128 mm[Hg] Dr. Bassam Johnson Work Phone: 4(608)793-833445 [place] [address] 04-25-2023 18:01-0400 Diastolic blood pressure 68 mm[Hg] Dr. Bassam Johnson Work Phone: 6(662)322-606145 [place] [address] 04-25-2023 18:01-0400 Heart rate 58 /min Dr. Bassam Johnson Work Phone: 3(435)795-686945 [place] [address] 04-25-2023 18:01-0400 Respiratory rate 16 /min Dr. Bassam Johnson Work Phone: 6(668)087-518945 [place] [address] 04-25-2023 18:01-0400 SaO2% (BldA) [Mass fraction] 100 % Dr. Bassam Johnson Work Phone: 8(153)828-022945 [place] [address] 04-25-2023 18:01-0400 Systolic blood pressure 146 mm[Hg] Dr. Bassam Johnson Work Phone: 7(651)974-518945 [place] [address] 04-25-2023 16:06-0400 Body height 152.[address] Bassam Johnson Work Phone: 0(641)787-893745 [place] [address] 04-25-2023 16:06-0400 Body mass index (BMI) [Ratio] 26.7 kg/m2 Dr. Bassam Johnson Work Phone: 6(242)258-056645 [place] [address] 04-25-2023 16:06-0400 Body temperature 98 [degF] Dr. Bassam Johnson Work Phone: 9(277)805-787545 [place] [address] 04-25-2023 16:06-0400 Body weight 62.[address] Bassam Johnson Work Phone: 1(901)943-862245 [place] [address] 12-22-2022 10:30-0400 Body temperature 96.9 [degF] Dr. Bassam Johnson Work Phone: 9(748)486-518945 [place] [address] 12-22-2022 10:30-0400 Diastolic blood pressure 57 mm[Hg] Dr. Bassam Johnson Work Phone: 5(693)268-181145 [place] [address] 12-22-2022 10:30-0400 Heart rate 75 /min Dr. Bassam Johnson Work Phone: 9(775)997-183445 [place] [address] 12-22-2022 10:30-0400 Respiratory rate 17 /min Dr. Bassam Johnson Work Phone: 3(233)847-216745 [place] [address] 12-22-2022 10:30-0400 SaO2% (BldA) [Mass fraction] 97 % Dr. Bassam Johnson Work Phone: 9(234)343-719245 [place] [address] 12-22-2022 10:30-0400 Systolic blood pressure 130 mm[Hg] Dr. Bassam Johnson Work Phone: 0(216)105-546345 [place] [address] 12-22-2022 06:25-0400 Body height 152.[address] Bassam Johnson Work Phone: 9(633)336-119445 [place] [address] 12-22-2022 06:25-0400 Body mass index (BMI) [Ratio] 26.3 kg/m2 Dr. Bassam Johnson Work Phone: 5(868)103-239145 [place] [address] 12-22-2022 06:25-0400 Body weight 61.[address] Bassam Johnson Work Phone: 9(295)708-075545 [place] [address] 11-21-2022 13:20-0400 Body mass index (BMI) [Ratio] 28.3 kg/m2 Dr. Bassam Johnson Work Phone: 2(764)177-691345 [place] [address] 11-21-2022 13:20-0400 Body weight 65.[address] Bassam Johnson Work Phone: 1(101)483-384955 [place] [address] 11-21-2022 13:20-0400 Diastolic blood pressure 76 mm[Hg] Dr. Bassam Johnson Work Phone: 9(879)637-176245 [place] [address] 11-21-2022 13:20-0400 Respiratory rate 18 /min Dr. Bassam Johnson Work Phone: 5(202)965-405839 [address] 11-21-2022 13:20-0400 Systolic blood pressure 146 mm[Hg] Dr. Bassam Johnson Work Phone: 6(877)098-494239 [address] 11-16-2022 21:28-0400 Respiratory rate 18 /min Dr. Bassam Johnson Work Phone: 0(088)544-205445 [place] [address] 11-16-2022 19:03-0400 Body mass index (BMI) [Ratio] 28.4 kg/m2 Dr. Bassam Johnson Work Phone: 8(388)798-309545 [place] [address] 11-16-2022 19:03-0400 Body temperature 97.5 [degF] Dr. Bassam Johnson Work Phone: 7(990)646-267445 [place] [address] 11-16-2022 19:03-0400 Body weight 66.[address] Bassam Johnson Work Phone: 4(303)217-487645 [place] [address] 11-16-2022 19:03-0400 Diastolic blood pressure 78 mm[Hg] Dr. Bassam Johnson Work Phone: 6(102)459-676545 [place] [address] 11-16-2022 19:03-0400 Heart rate 70 /min Dr. Bassam Johnson Work Phone: 7(146)173-090945 [place] [address] 11-16-2022 19:03-0400 SaO2% (BldA) [Mass fraction] 98 % Dr. Bassam Johnson Work Phone: 6(420)868-875139 [address] 11-16-2022 19:03-0400 Systolic blood pressure 156 mm[Hg] Dr. Bassam Johnson Work Phone: 0(839)213-806239 [address] 09-22-2022 10:34-0400 Body height 152.[address] Bassam Johnson Work Phone: 2(924)319-939145 [place] [address] 09-22-2022 10:34-0400 Body mass index (BMI) [Ratio] 27.3 kg/m2 Dr. Bassam Johnson Work Phone: 3(027)633-321045 [place] [address] 09-22-2022 10:34-0400 Body temperature 97.5 [degF] Dr. Bassam Johnson Work Phone: 4(193)617-935145 [place] [address] 09-22-2022 10:34-0400 Body weight 63.[address] Bassam Johnson Work Phone: 3(616)000-057045 [place] [address] 09-22-2022 10:34-0400 Diastolic blood pressure 92 mm[Hg] Dr. Bassam Johnson Work Phone: 5(762)039-669745 [place] [address] 09-22-2022 10:34-0400 Heart rate 67 /min Dr. Bassam Johnson Work Phone: 0(236)167-626845 [place] [address] 09-22-2022 10:34-0400 Respiratory rate 16 /min Dr. Bassam Johnson Work Phone: 9(311)606-862245 [place] [address] 09-22-2022 10:34-0400 SaO2% (BldA) [Mass fraction] 97 % Dr. Bassam Johnson Work Phone: 4(073)033-244445 [place] [address] 09-22-2022 10:34-0400 Systolic blood pressure 133 mm[Hg] Dr. Bassam Johnson Work Phone: 8(475)485-735239 [address] 09-15-2022 13:11-0400 Body height 154.[address] Bassam Johnson Work Phone: 7(637)354-273445 [place] [address] 09-15-2022 13:11-0400 Body mass index (BMI) [Ratio] 26.6 kg/m2 Dr. Bassam Johnson Work Phone: 0(434)787-482745 [place] [address] 09-15-2022 13:11-0400 Body weight 64.[address] Bassam Johnson Work Phone: [facility] 09-15-2022 13:11-0400 Diastolic blood pressure 88 mm[Hg] Dr. Bassam Johnson Work Phone: [facility] 09-15-2022 13:11-0400 Systolic blood pressure 153 mm[Hg] Dr. Bassam Johnson Work Phone: [facility] 12-28-2021 13:56-0400 Body height 154.[address] Bassam Johnson Work Phone: [facility] Work Phone: 12-28-2021 13:56-0400 Body mass index (BMI) [Ratio] 26.1 kg/m2 Dr. Bassam Johnson Work Phone: [facility] Work Phone: 12-28-2021 13:56-0400 Body weight 62.[address] Bassam Johnson Work Phone: [facility] Work Phone: 11-24-2021 14:16-0400 Body temperature 98.9 [degF] Dr. Bassam Johnson Work Phone: [facility] Work Phone: 11-24-2021 14:16-0400 Diastolic blood pressure 93 mm[Hg] Dr. Bassam Johnson Work Phone: [facility] Work Phone: 11-24-2021 14:16-0400 Heart rate 63 /min Dr. Bassam Johnson Work Phone: [facility] Work Phone: 11-24-2021 14:16-0400 Respiratory rate 17 /min Dr. Bassam Johnson Work Phone: [facility] Work Phone: 11-24-2021 14:16-0400 SaO2% (BldA) [Mass fraction] 99 % Dr. Bassam Johnson Work Phone: [facility] Work Phone: 11-24-2021 14:16-0400 Systolic blood pressure 141 mm[Hg] Dr. Bassam Johnson Work Phone: [facility] Work Phone: 11-23-2021 15:52-0400 Body height 154.[address] Bassam Johnson Work Phone: [facility] Work Phone: 11-23-2021 15:52-0400 Body weight 63.[address] Bassam Johnson Work Phone: [facility] Work Phone: 11-23-2021 01:59-0400 Body temperature 97.7 [degF] Dr. Bassam Johnson Work Phone: [facility] Work Phone: 11-23-2021 01:59-0400 Diastolic blood pressure 70 mm[Hg] Dr. Bassam Johnson Work Phone: [facility] Work Phone: 11-23-2021 01:59-0400 Heart rate 71 /min Dr. Bassam Johnson Work Phone: [facility] Work Phone: 11-23-2021 01:59-0400 Respiratory rate 16 /min Dr. Bassam Johnson Work Phone: [facility] Work Phone: 11-23-2021 01:59-0400 SaO2% (BldA) [Mass fraction] 97 % Dr. Bassam Johnson Work Phone: [facility] Work Phone: 11-23-2021 01:59-0400 Systolic blood pressure 142 mm[Hg] Dr. Bassam Johnson Work Phone: [facility] Work Phone: 11-23-2021 01:57-0400 Body height 154.[address] Bassam Johnson Work Phone: [facility] Work Phone: 11-23-2021 01:57-0400 Body mass index (BMI) [Ratio] 26.6 kg/m2 Dr. Bassam Johnson Work Phone: [facility] Work Phone: 11-23-2021 01:57-0400 Body weight 63.[address] Bassam Johnson Work Phone: [facility] Work Phone: 09-02-2021 13:30-0500 Body mass index (BMI) [Ratio] 27.7 kg/m2 Dr. Bassam Johnson Work Phone: [facility] Work Phone: 09-02-2021 13:30-0500 Body temperature 97.4 [degF] Dr. Bassam Johnson Work Phone: [facility] Work Phone: 09-02-2021 13:30-0500 Body weight 64.[address] Bassam Johnson Work Phone: [facility] Work Phone: 09-02-2021 13:30-0500 Diastolic blood pressure 65 mm[Hg] Dr. Bassam Johnson Work Phone: [facility] Work Phone: 09-02-2021 13:30-0500 Heart rate 77 /min Dr. Bassam Johnson Work Phone: [facility] Work Phone: 09-02-2021 13:30-0500 Respiratory rate 17 /min Dr. Bassam Johnson Work Phone: [facility] Work Phone: 09-02-2021 13:30-0500 SaO2% (BldA) [Mass fraction] 97 % Dr. Bassam Johnson Work Phone: [facility] Work Phone: 09-02-2021 13:30-0500 Systolic blood pressure 143 mm[Hg] Dr. Bassam Johnson Work Phone: [facility] Work Phone: 09-02-2021 12:30-0500 Body mass index (BMI) [Ratio] 27.7 kg/m2 Dr. Bassam Johnson Work Phone: [facility] Work Phone: 09-02-2021 12:30-0500 Body temperature 97.4 [degF] Dr. Bassam Johnson Work Phone: [facility] Work Phone: 09-02-2021 12:30-0500 Body weight 64.[address] Bassam Johnson Work Phone: [facility] Work Phone: 09-02-2021 12:30-0500 Diastolic blood pressure 65 mm[Hg] Dr. Bassam Johnson Work Phone: [facility] Work Phone: 09-02-2021 12:30-0500 Heart rate 77 /min Dr. Bassam Johnson Work Phone: [facility] Work Phone: 09-02-2021 12:30-0500 Respiratory rate 17 /min Dr. Bassam Johnson Work Phone: [facility] Work Phone: 09-02-2021 12:30-0500 SaO2% (BldA) [Mass fraction] 97 % Dr. Bassam Johnson Work Phone: [facility] Work Phone: 09-02-2021 12:30-0500 Systolic blood pressure 143 mm[Hg] Dr. Bassam Johnson Work Phone: [facility] Work Phone: 08-26-2021 10:40-0500 Body mass index (BMI) [Ratio] 26.6 kg/m2 Dr. Bassam Johnson Work Phone: [facility] Work Phone: 08-26-2021 10:40-0500 Body weight 63.[address] Bassam Johnson Work Phone: [facility] Work Phone: 08-26-2021 10:40-0500 Diastolic blood pressure 70 mm[Hg] Dr. Bassam Johnson Work Phone: [facility] Work Phone: 08-26-2021 10:40-0500 Systolic blood pressure 110 mm[Hg] Dr. Bassam Johnson Work Phone: [facility] Work Phone: 08-12-2021 13:43-0500 Body weight 64.[address] Bassam Johnson Work Phone: [facility] Work Phone: 08-12-2021 13:43-0500 Diastolic blood pressure 70 mm[Hg] Dr. Bassam Johnson Work Phone: [facility] Work Phone: 08-12-2021 13:43-0500 Systolic blood pressure 138 mm[Hg] Dr. Bassam Johnson Work Phone: [facility] Work Phone: 05-17-2016 13:48-0500 BMI (Body Mass Index) 29.28 kg/m2 [facility] Work Phone: 05-17-2016 13:48-0500 Body weight 70.[address] [facility] Work Phone: 05-17-2016 13:48-0500 Height 154.94 cm [facility] Work Phone: 05-17-2016 13:48-0500 Weight 70.31 [facility] Work Phone: Encounters Encounter Date Encounter Type Care Provider Facility Start: 11-18-2024 Encounter for gynecological examination (general) (routine) without abnormal findings Lore Scanlon [facility] Start: 11-18-2024 End: 11-18-[address] Lore Scanlon MD -[facility] Work Phone: Start: 11-18-2024 End: 11-18-[address] Lore Scanlon MD [facility] Start: 11-18-2024 End: 11-18-[address] Bassam Johnosn DO Work Phone: [facility] Work Phone: Start: 09-30-2024 End: 09-30-[address] Bassam Johnson DO Work Phone: [facility] Work Phone: Start: 09-30-2024 End: 09-30-[address] Bassam Johnson MD -Laboratory Work Phone: Start: 09-30-2024 End: 09-30-2024 ambulatory Bassam Johnson Facility:[facility] Start: 09-16-2024 End: 09-16-[address] Bassam Johnson DO Work Phone: [facility] Work Phone: Start: 09-16-2024 End: 09-16-[address] Lore Scanlon MD -Outpatient Breast Imaging Work Phone: Start: 09-16-2024 End: 09-16-2024 ambulatory Lore Scanlon Facility:[facility] Start: 05-29-2024 Non-patient / Non-visit Dr. Loli angulo MD -[facility] Start: 05-29-2024 End: 05-29-2024 Admission to same day surgery center Dr. Loli Chan MD -Endoscopy Work Phone: Start: 05-29-2024 End: 05-29-2024 ambulatory Bassam Johnson Facility:[facility] Start: 03-31-2024 End: 03-31-2024 Emergency department patient visit Hossein North Facility:[facility] Start: 03-21-2024 End: 03-21-2024 Emergency department patient visit Jose SerranojojocoreyGeronimo Facility:[facility] Start: 03-11-2024 [facility]ulatory [facility] Start: 03-11-2024 ambulatory [facility] Start: 11-06-2023 End: 11-06-[address] Bassam Johnson Work Phone: [facility] Work Phone: Start: 11-06-2023 End: 11-06-[address] Bassam Johnson Work Phone: [facility] Work Phone: Start: 10-20-2023 End: 10-20-[address] Bassam Johnson Work Phone: [facility] Start: 10-20-2023 End: 10-20-[address] Bassam Johnson Work Phone: [facility] Work Phone: Start: 09-15-2023 End: 09-15-2023 ambulatory [facility] Work Phone: Start: 09-15-2023 End: 09-15-2023 Patient encounter procedure [facility]-Outpatient Breast [facility] Work Phone: Start: 05-17-2023 End: 05-17-2023 ambulatory [facility] Work Phone: Start: 05-17-2023 End: 05-17-2023 [facility] Work [facility]: Start: 04-25-2023 End: 04-25-2023 Emergency department patient visit Dr. Bassam Johnson Work Phone: [facility]-Emergency Department Work Phone: Start: 04-24-2023 End: 04-24-[address] Bassam Johnson Work Phone: [facility] Work Phone: Start: 04-24-2023 End: 04-24-[address] Bassam Johnson Work Phone: [facility] Work Phone: Start: 01-12-2023 End: 01-12-[address] Bassam Johnson Work Phone: [facility] Work Phone: Start: 01-06-2023 End: 01-06-[address] Bassam Johnson Work Phone: [facility] Work Phone: Start: 01-06-2023 End: 01-06-[address] [facility] Start: 12-22-2022 Non-patient / Non-visit Dr. Belen Johnson Work Phone: [facility] Start: 12-22-2022 End: 12-22-2022 Admission to same day surgery center [facility] Start: 12-22-2022 End: 12-22-[address] Bassam Johnson Work Phone: [facility] Work Phone: Start: 11-21-2022 End: 11-21-[address] Bassam Johnson Work Phone: [facility] Start: 11-16-2022 End: 11-16-2022 Emergency department patient visit Dr. Bassam Johnson Work Phone: [facility]-Emergency Department Start: 09-29-2022 End: 09-29-[address] Bassam Johnson Work Phone: [facility] Work Phone: Start: 09-29-2022 End: 09-29-[address] Bassam Johnson Work Phone: [facility] Start: 09-22-2022 End: 09-22-2022 Emergency department patient visit Dr. Bassam Johnson Work Phone: [facility]-Emergency Department Start: 09-15-2022 End: 09-15-[address] Bassam Johnson Work Phone: [facility] Start: 09-12-2022 End: 09-12-[address] Bassam Johnson Work Phone: [facility] Work Phone: Start: 09-12-2022 End: 09-12-[address] Bassam Johnson Work Phone: [facility]-Outpatient Breast Imaging Start: 12-28-2021 End: 12-28-[address] Bassam Johnson Work Phone: [facility] Start: 12-28-2021 End: 12-28-[address] Bassam Johnson Work Phone: [facility]-Laboratory, Specimen Start: 11-24-2021 Non-patient / Non-visit Dr. Belen Johnson Work Phone: [facility] Start: 11-24-2021 Non-patient / Non-visit Dr. Belen Johnson Work Phone: [facility] Start: 11-23-2021 End: 11-24-2021 Evaluation and management of inpatient [facility]. Bassam [facility] Start: 11-23-2021 Non-patient / Non-visit Dr. Belen Johnson Work Phone: [facility] Start: 11-23-2021 Non-patient / Non-visit Dr. Belen Johnson Work Phone: [facility] Start: 11-23-2021 Evaluation and management of inpatient Dr. Bsasam oJhnson [facility] Start: 10-13-2021 End: 10-13-[address] Bassam Johnson Work Phone: [facility] Start: 09-08-2021 End: 09-08-[address] Bassam Johnson Work Phone: [facility]Outpatient Breast [facility] Start: 09-02-2021 End: 09-02-[address] Bassam Johnson Work Phone: [facility] Start: 08-26-[address] West Johnson Work Phone: [facility] Start: 08-26-2021 End: 08-26-[address] Bassam Johnson Work Phone: [facility] Start: 08-26-2021 End: 08-26-[address] Bassam Johnson Work Phone: [facility] Start: 08-12-2021 End: 08-12-[address] Bassam Johnson Work Phone: [facility]-Laboratory, Specimen Start: 08-12-2021 End: 08-12-[address] Bassam Johnson Work Phone: [facility] Procedures Date Procedure Procedure Detail Performing Clinician Start: 09-16-2024 Screening mammography Lupe Johnson DO Work Phone: Start: 11-06-[address] West Johnson Work Phone: Start: 09-15-2023 Screening mammography Start: 01-06-[address] Bassam Johnson Work Phone: Start: 12-22-[address] Bassam Johnson Work Phone: Start: 09-29-2022 Dual energy X-ray absorptiometry Dr. Bassam Johnson Work Phone: Start: 09-29-[address] West Johnson Work Phone: Start: 09-29-[address] Bassam Johnson Work Phone: Start: 09-12-2022 Screening mammography Lupe Johnson Work Phone: Start: 11-23-2021 Computed tomography of abdomen and pelvis with intravenous contrast Dr. Bassam Johnson Work Phone: Start: 10-13-[address] West Johnson Work Phone: Start: 10-13-[address] Bassam Johnson Work Phone: Start: 09-08-2021 Screening mammography Lupe Johnson Work Phone: Start: 08-12-2021 Cytopathology proced ure, preparation of smear, genital source Dr. Bassam Johnson Work Phone: Start: 08-12-2021 Investigation of transfusion reaction Dr. Bassam Johnson Work Phone: Start: 08-12-[address] Bassam Johnson Work Phone: Start: 11-08-2016 End: 11-08-2016 Documentation of current medications Cathy Faustin Start: 05-17-2016 End: 05-31-2016 Arthrocentesis aspir&/inj interm jt/burs w/o us Marlys Clements Work Phone: Start: 05-17-2016 End: 05-31-2016 Drain/inject, joint/bursa Marlys tucker Work Phone: Urine culture Dr. Bassam gonsalez Work Phone: Plan of Treatment Date Care Activity Detail Author Start: 05-29-2024 Colonoscopy w/biopsy single/multiple COLONOSCOPY AND BIOPSY [facility] Start: 05-29-2024 Patient discharge [facility] Start: 04-25-2023 [facility] Start: 12-22-2022 Anesthesia hernia repair lower abdomen nos ANESTH REPAIR OF HERNIA [facility] Start: 12-22-2022 RPR AA HRN 1ST < 3 CM RDC RPR AA HRN 1ST < 3 CM RDC [facility] Start: 12-22-2022 Patient discharge [facility] Start: 11-24-2021 Patient discharge [facility] Work Phone: Start: 11-24-2021 Following clinical pathway protocol [facility] Work Phone: Start: 11-23-2021 Admission procedure [facility] Work Phone: Start: 11-23-2021 Nil by mouth [facility] Work Phone: Start: 11-23-2021 Following clinical pathway protocol [facility] Work Phone: Start: 11-23-2021 Application of intermittent pneumatic compression device [facility] Work Phone: Start: 11-23-2021 Assessment of risk of venous thromboembolism [facility] Work Phone: Start: 11-23-2021 Insertion of catheter into peripheral vein [facility] Work Phone: Start: 11-23-2021 Providing care according to standard [facility] Work Phone: Start: 11-23-2021 Provision of activity privileges [facility] Work Phone: Start: 11-23-2021 Referral to general surgeon [facility] Work Phone: Start: 11-23-2021 [facility] Work Phone: Start: 11-23-2021 Admission procedure [facility] Work Phone: Start: 08-26-2021 Patient referral [facility] Work Phone: Start: 05-04-2017 End: 05-04-2017 Appointment Appointment [facility] Work Phone: Start: 04-04-2017 End: 04-04-2017 Appointment Appointment [facility] Work Phone: Start: 03-22-2017 End: 03-22-2017 Appointment Appointment [facility] Work Phone: Start: 03-07-2017 End: 03-07-2017 Appointment Appointment [facility] Work Phone: Start: 02-07-2017 End: 02-07-2017 Appointment Appointment [facility] Work Phone: Start: 12-30-2016 End: 12-30-2016 Appointment Appointment [facility] Work Phone: Start: 11-08-2016 End: 11-08-2016 EMG EMG [facility] Work Phone: Start: 11-08-2016 End: 11-08-2016 Nerve Conduction Nerve Conduction [facility] Work Phone: Start: 11-08-2016 End: 11-08-2016 Appointment Appointment [facility] Work Phone: Start: 11-08-2016 End: 11-08-2016 EMG EMG [facility] Work Phone: Start: 11-08-2016 End: 11-08-2016 Nerve Conduction Nerve Conduction [facility] Work Phone: Start: 05-25-2016 End: 05-25-2016 Occupational Therapy General [facility]ational [facility], [address] [place] [address], [address] [facility] Work Phone: Start: 05-25-2016 End: 05-25-2016 Occupational Therapy General Occupational Therapy [facility], [address] [place] [address], [id number] [facility] Work Phone: Start: 05-17-2016 End: 05-17-2016 Radex wrist complete minimum 3 views X-Ray, Wrist [facility] Work Phone: Start: 05-17-2016 End: 05-17-2016 X-ray exam of wrist X-Ray, Wrist [facility] Work Phone: DXA Bone [Mass/Area] Bone density [facility] Patient Education [facility] Work Phone: Patient referral [facility] Work Phone: US Pelvis [facility] US Pelvis transvaginal [facility] Immunizations Immunization Date Immunization Notes Care Provider Fa cility 05-13-2021 Covid (Pfizer) Dr. Bassam gu Work Phone: [facility] 04-14-2021 Influenza, high dose seasonal Dr. Bassam Johnson DO Work Phone: [facility] 04-14-2021 influenza, high dose seasonal, preservative-free Dr. Bassam Johnson Work Phone: [facility] 09-29-2020 Covid (Pfizer) Dr. Bassam gu Work Phone: [facility] 09-08-2020 Covid (Pfizer) Dr. Bassam gu Work Phone: [facility] 06-02-[address] Bassam Johnson Work Phone: [facility] Payers Date Payer Category Payer Self-pay [id number] 2014 Medicare [id number] 2014 Unknown [id number] Unknown [id number] 2.16.8 [id number] Unknown [id number] 2.16.8 [id number] Unknown [id number] 2.16.8 [id number] Unknown [id number] 2.16.8 [id number] Unknown [id number] 2.16.8 [id number] Unknown [id number] 2.16.8 [id number] Unknown [id number] 2.16.8 [id number] Unknown [id number] 2.16.8 [id number] Unknown [id number] 2.16.8 [id number] Social History Date Type Detail Facility Start: 11-22-2021 End: 04-25-2023 Tobacco smoking status NHIS Unknown if ever smoked [facility] Start: 09-01-2019 None [facility] Start: 09-01-2019 Spouse/ Signif icant Other [facility] Start: 09-01-2019 Non-smoker [facility] Start: 1950 Sex Assigned At Female [facility] Start: 05-29-2024 Tobacco smoking status NHIS Never smoked tobacco (finding) [facility] Start: 09-25-2024 End: 10-02-2024 Sex Female (finding) [facility] NEGATED: Highlighted row [facility] Medical Equipment Procedure Code Equipment Code Equipment Origin al Text Equipment Identifier Dates Repair, hernia, umbilical, using mesh ([id number]) Extra-gynaecologic al surgical mesh, composite-polymer ([id number] 01 FDA Start: 12-22-2022 Goals Date Patient Goal Desired Activity /State Functional Status Date Assessment Result Facility 12-22-2022 Functional status Ambulates [facility] Work Phone: 11-24-2021 Functional status Ambulates [facility] Work Phone: Mental Status Date Assessment Result Facility 05-29-2024 Cognitive function Touch/Shaking [facility] Work Phone: 04-25-2023 Cognitive function Level Of Cons ciousness Awake;Alert;Appropriate;Follow s Commands [facility] Work Phone: 12-22-2022 Cognitive function Level Of Consciousness Sedated [facility] Work Phone: 12-22-2022 Cognitive function Patient Orien tation Person;Place;Time [facility] Work Phone: 09-22-2022 Cognitive function Level Of Cons ciousness Awake;Alert;Appropriate;Follow s Commands [facility] Work Phone: 11-24-2021 Cognitive function Voice/Name [facility] Work Phone: Clinical Notes 12-22-2022 to 11-18-2024 Note Date & Type Note Facility 11-18-2024 Progress note [facility] 11-18-2024 Progress note Note Date/Time November 18, 2024 3:08pm [facility] [address], [address] [place] [address] OFFICE VISIT Date of Service: 11/18/24 MR#: [id number] Acct: [id number] Name: ABY TELLES Rep #: [id number] : 1950 Provider: Dr. 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: No Is patient in pain?: No Allergies cyclobenzaprine Allergy (Mild, Verified 11/18/24 14:20) other montelukast (From Singulair) Allergy (Verified 11/18/24 14:20) PT UNSURE OF REACTION latex Adverse Reaction (Verified 11/18/24 14:20) irritation oxycodone (From Percocet) Adverse Reaction (Verified 11/18/24 14:20) DIZZY,LIGHTHEADNESS Medications ?Medication ?Instructions ?Recorded ?Confirmed ?Type calcium carbonate 1,200 mg PO DAILY supplement 01/24/17 11/18/24 History cholecalciferol (vitamin D3) 25 2,000 unit PO DAILY nur pplement 01/24/17 11/18/24 History mcg (1,000 unit) capsule cinnamon bark 500 mg capsule 1,000 mg PO 0800,1200 sup plement 01/24/17 11/18/24 History lorazepam 0.5 mg tablet 0.5 - 1 mg PO DAILY PRN PRN Anxiety 01/24/17 11/18/24 History wpzwkodajniu-Ml-wzuk-minerals 1 ea PO DAILY supplement 01/24/17 11/18/24 History red yeast rice 600 mg capsule 600 mg PO 0800,1200 supp lement 01/24/17 11/18/24 History fluticasone propionate 50 1 spray intranasal DAILY all ergies 08/25/20 11/18/24 History mcg/actuation nasal spray,suspension famotidine 20 mg tablet (Pepcid) 20 mg PO DAILY PRN GE RD 08/12/21 11/18/24 History ascorbic acid (vitamin C) 1,000 mg 1 g PO DAILY supple ment 08/26/21 11/18/24 History tablet amlodipine 5 mg tablet 5 mg PO DAILY hypertension 1 07/09/21 11/18/24 History lisinopril 10 mg tablet 10 mg PO DAILY 05/09/2210/31 History peg [id number]-[id number] 1 1 drp EACH EYE BID PRN Dry Eyes 12/14/22 11/18/24 History %-0.2 %-0.2 % eye drops (Dry Eye Relief) acetaminophen 500 mg tablet 1,000 mg PO BID 03/11/24 0 11/18/24 History (Tylenol Extra Strength) dexamethasone 0.1 % eye 1 drp ophthalmic (eye) BID P RN 03/11/24 11/18/24 History drops,suspension itching loratadine 10 mg tablet (Claritin) 10 mg PO DAILY 03/2611/18/24 History amlodipine 2.5 mg tablet 2.5 mg PO DAILY 03/31/24 History ferrous sulfate 325 mg (65 mg 325 mg PO DAILY 05/27/24 11/18/24 History iron) tablet (Iron (ferrous sulfate)) estriol vaginal cream vaginal 11/18/24 History mecobalamin (vitamin B12) 500 mcg mcg PO DAILY 11/18/24 History chewable tablet Is last menstrual period known: No Post menopausal: Yes Patient : No : No PFSH Medical History Wears partial dentures Wears glasses Post-menopausal Anxiety Arthritis Dietary restriction Gastric reflux Non-smoker History of edema H/O vaginal delivery Cystitis cataract surgery (~2015) Back pain Neck pain Difficulty balancing Hay fever Seasonal allergies Heart disease Shoulder pain Hypertension Surgical History History of umbilical hernia repair (~12/2022) Hx of bilateral cataract extraction History of carpal tunnel release of both wrists (~2016) Family History Other Diabetes Heart disease Hypertension Social History household members: spouse current occupational status: retired Smoking Status: Never smoker alcohol intake: never substance use type: does not use caffeine: Yes what type of physical activity do you participate in: walking frequency: 5-6 times per week seatbelt use: always do you feel safe at home: Yes 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- History 2 Elective abortions Hx Para 2 Spontaneous abortions Hx # Term Pregnancies Ectopic pregnancies Hx # Pregnancies Multiple births # of living children HPI Encounter for routine gynecological examination Details: ABY TELLES is a 74 year old who presents for annual exam. Last PAP: no severe nl History of abnormal PAP: Last mammogram: 09/17/2023 - normal History of abnormal mammogram: Colon cancer screening: colonoscopy 2023 Other preventative health care screenings: PCP [facility]. Torres 2022. Female Reproductive History Questions: metorrhagia: No, sexually active: Yes, dyspareunia: No and PCB: No Menopausal Symptoms: No hot flashes, No night sweats, No weight change, No mood changes, No difficulty concentrating, No sleep problems and No change in libido ROS Const Constitutional: Reports as per HPI; Denies fatigue, increased appetite, poor appetite, night sweats, weight gain or weight loss Cardio Card: Denies chest pain Resp Resp: Denies cough or dyspnea GI GI: Reports as per HPI; Denies abdominal pain, bloating, constipation, nausea or vomiting : Reports as per HPI and other; Denies difficulty voiding, dysuria, hematuria, hot flashes, nipple discharge, pelvic pain, prolapse symptoms, urinary frequency, urinary incontinence, urinaryurgency, vaginal discharge, vaginal dryness, vaginal odor or vaginal pruritus Skin Skin/Breast: Denies changing lesions, breast mass, breast pain, breast skin changes or nipple discharge Psych Psych: Denies anxiety, change in libido, depression or difficulty concentrating Exam Const General: cooperative, healthy appearing, comfortable, no acute distress, well developed and well groomed HENMT Head: normal to inspection and normocephalic Ears: hearing grossly normal bilaterally and external ears normal Nose: external nose normal Face and sinus: normal facial exam Neck Neck: normal visual inspection, full ROM and no lymphadenopathy Thyroid: thyroid normal Chest Chest palpation & inspection: normal inspection of the chest Breast inspection: normal inspection of the breasts and normal inspection of theaxillae Breast palpation: normal palpation of the breasts, normal palpation of the axillae and no axillary lymphadenopathy Resp Effort & Inspection: normal respiratory effort GI Inspection: normal to inspection and non-distended Palpation: soft, no hepatosplenomegaly and no guarding General: bladder normal to palpation External Female Exam: normal external appearance, normal appearance of the urethra and no lesions Urethra: normal appearance of the urethra and normal palpation Speculum Exam - Vagina: normal appearance of the vagina and normal vaginal discharge Speculum Exam - Cervix: normal appearance of the cervix, no cervical discharge, no lesions and nontender Bimanual Exam- Vagina & Uterus: normal bimanual exam, uterine size normal, bladder normal to palpation, No tender, uterine mobility normal, consistency normal, non-tender and no cervical motion tenderness Bimanual Exam- Adnexa, other: normal adnexae, no masses and non-tender Skin General: no rashes or lesions noted Neuro General: patient alert, moves all extremities and no focal motor deficits Extrem General: normal to inspection and no pedal edema Psych Appearance: grossly normal Mental Status: mental status grossly normal Affect: normal affect Speech and Movement: speech and movement normal Attitude: cooperative Coding Level of Care Code Pelvic/Breast Diagnoses Encounter for gynecological examination without abnormal finding Z01.419 Gynecological examination findings: abnormal findings ABSENT Assessment and Plan Assessment and Plan (1) Encounter for routine gynecological examination: Qualifiers: Gynecological examination findings: abnormal findings ABSENT Qualified Code(s): Z01.419 - Encounter for gynecological examination (general) (routine) without abnormal findings Plan Cervical cancer screening: paps nl in past Breast cancer screening: mamm other health maintenance examination reviewed and orders placed if needed. Encouraged maintenance of a healthy weight and active lifestyle and handout given. Annual exam handout including recommendations for good health guidelines, Calcium/vitamin D recommendations, and basic screening information given. Problem list up to date, see problem list details for any additional plan information. Follow up in one year for annual health maintenance exam or sooner if needed. 11/18/24 1508 <Electronically signed by Lore mi MD> Date _ Lore Scanlon MD Cosigner Signature: Date (if applicable) CC: ~ [facility] Work Phone: 1(502) 603-635511-27-2024 Evaluation note* Diagnosis Onset Date Resolution Status Admit Date Encounter for screening for malignant neoplasm of colon acute Edmundo tellez 2023 6:12am [facility] Work Phone: 1(244) 165-275911-27-2024 [facility] Medical Records Department [address] [place] [address] History Physical Exam 05/29/24 0655 MR#: [id number] Acct: [id number] Name: ABY TELLES Rep #: [id number] : 1950 73 From: Loli Chan MD PCP: Dr. Bassam Johnson MD Status:[facility] Location: [place] [address] HPI - General General Date of Service: 05/29/24 HPI Narrative ABY TELLES, is a 73 F who presents for screening colonoscopy. Patient never had previous colonoscopy. Patient denies any family history of colon cancer. Patient denies any chronic abdominal pain/nausea/vomiting/reflux. Patient has bowel movements daily denies any blood. [facility] Medical History Wears partial dentures Wears glasses Post-menopausal Anxiety Arthritis Dietary restriction Gastric reflux Non-smoker History of edema H/O vaginal delivery Cystitis cataract surgery ( 2015) Back pain Neck pain Difficulty balancing Hay fever Seasonal allergies Heart disease Shoulder pain Hypertension Home Medications ???Medication ???Instructions ???Recorded ???Last Taken ???Type calcium carbonate 1,200 mg PO DAILY supplement 01/24/17 05/28/24 History cholecalciferol (vitamin D3) 25 2,000 unit PO DAILY supplement 01/24/17 05/28/24 History mcg (1,000 unit) capsule cinnamon bark 500 mg capsule 1,000 mg PO 0800,1200 supplement 01/24/17 05/28/24 History lorazepam 0.5 mg tablet 0.5 - 1 mg PO DAILY PRN PRN Anxiety 01/24/17 05/29/24 History gbdrxrgnvsyc-Pv-tkmx-minerals 1 ea PO DAILY supplement 01/24/17 05/28/24 History red yeast rice 600 mg capsule 600 mg PO 0800,1200 supplement 01/24/17 05/28/24 History fluticasone propionate 50 1 spray intranasal DAILY allergies 08/25/20 11/22/21 History mcg/actuation nasal spray,suspension famotidine 20 mg tablet (Pepcid) 20 mg PO DAILY PRN GERD 08/12/21 Unknown History ascorbic acid (vitamin C) 1,000 mg 1 g PO DAILY supplement 08/26/21 05/28/24 History tablet amlodipine 5 mg tablet 5 mg PO DAILY hypertension 05/09/22 05/29/24 History lisinopril 10 mg tablet 10 mg PO DAILY 05/09/22 05/29/24 History peg [id number] 1 1 drp EACH EYE BID PRN Dry Eyes 12/14/22 05/28/24 History %-0.2 %-0.2 % eye drops (Dry Eye Relief) acetaminophen 500 mg tablet 1,000 mg PO BID 03/11/24 05/29/24 History (Tylenol Extra Strength) dexamethasone 0.1 % eye 1 drp ophthalmic (eye) BID PRN 03/11/24 Unknown History drops,suspension itching loratadine 10 mg tablet (Claritin) 10 mg PO DAILY 03/11/24 05/28/24 History amlodipine 2.5 mg tablet 2.5 mg PO DAILY 03/31/24 05/29/24 History conjugated estrogens 0.625 mg/gram 0.625 mg vaginal .2X/WEEK 05/27/24 Unknown History vaginal cream (Premarin) ferrous sulfate 325 mg (65 mg 325 mg PO DAILY 05/27/24 Unknown History iron) tablet (Iron (ferrous sulfate)) Allergy/AdvReac Type Severity Reaction Status Date / Time cyclobenzaprine Allergy Mild other Verified 05/27/24 09:29 montelukast (From Singulair) Allergy PT UNSURE Verified 05/27/24 09:29 OF REACTION latex AdvReac irritation Verified 05/27/24 09:29 oxycodone (From Percocet) AdvReac DIZZY,LIGHT Verified 05/27/24 09:29 HEADNESS Family History Other Diabetes Heart disease Hypertension Surgical History History of umbilical hernia repair ( 12/2022) Hx of bilateral cataract extraction History of carpal tunnel release of both wrists ( 2016) Social History household members: spouse current occupational status: retired Smoking Status: Never smoker alcohol intake: never substance use type: does not use caffeine: Yes what type of physical activity do you participate in: walking frequency: 5-6 times per week seatbelt use: always do you feel safe at home: Yes 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- Past Medical/Surgical History Planned Operation Planned Operative Procedure(s): CSCOPE S.O.S: No Previous Hospitalizations/Surgeries HX Hospitalizations: No HX of Surgeries: 2016 BILAT CATARACT RIGHT CARPAL TUNNEL RELEASE 2017 Any Problems With Anesthesia: No You/Your Family Experience Fever (Hyperthermia) With Anes: No Cholinesterase deficiency: No Cardiovascular Hx Chest Pain within Last 2 months: No Hx of Irregular Heartbeat and/or Afib: No Hx Heart Attack: No Hx Congestive Heart Failure: No Hx Rheumatic Fever: No Hx Hypertension: Yes (CONTROLLED ON MED) Hx Internal Defibrillator: No Hx Pacemaker: No Hx Cardiac Catheterization: No Hx Cardiac Surgery/Stents/Etc.: No Hx Stress Test: No Hx Pain in Legs when Walking/Leg Cramps: No Respiratory Chronic Cough: No HX of Shortness of Breath: No Hoars (more content not included)...[facility]06-22-[address] Chan [facility] December 22, 2022 8:10am Note Date/Time December 22, 2022 8:09 am [facility] Medical Records Department [address] [place] [address] Instructions for Home/Discharge Instructions 12/22/22 0809 MR#: [id number] Acct: [id number] Name: ABY TELLES Rep #:[id number] : 1950 72 From: Loli Chan MD PCP: Dr. Bassam Johnson MD Status:REG S DC Discharge Instructions Diet Discharge Diet: Light diet - advance as tolerated Activity May shower in (days): 5 (Keep umbilical dressing clean dry and intact for 5 days. Okay to tape off with a Ziploc bag to shower. Or lower shower and upper sponge bath.) Lifting Restrictions: no lifting >20 lbs x 2 wks, no strenuous exercise for 4 wks Additional Activity Instructions:: - Dressing / Incision Call your doctor if your incision/area has: Continuous Slow Oozing, Sudden Increased Bleeding, Increased Pain/ Swelling, Increased Redness, Foul Smelling Discharge and Swelling at the incision site Call your doctor if you observe: Fever of 101 or Higher Remove Dressing in: 5 days (After 5 days okay to remove surgical dressing. Place cotton ball or rolled up gauze in bellybutton and retape daily for 2 more days.) Cleanse incision/area with: Do not get Incision Wet (for 5 days) Additional Dressing/Incision Instructions:: Steri-Strips will fall off in 7 to 10 days, if they do not fall off okay to remove after 10 days. Follow Up Care Please Follow Up With: Loli Chan MD When: Call the office for a follow-up appointment 2 weeks; after 5 PM and on call [phone] with any concerns. Test Results: Test results from this visit will be discussed in further detail at your follow- up appointment, if applicable. Discharge Plan Admission Attending Provider: Loli Chan Primary Care Provider: Bassam Johnson Discharge Orders/Prescriptions Prescriptions: New tramadol 50 mg tablet 50 mg PO Q6H PRN (Reason: pain) 3 Days Qty: 10 0RF Continued fluticasone propionate 50 mcg/actuation spray,suspension 1 spray INTRANASAL DAILY Rx Instructions: administer into each nostril Premarin 0.625 mg/gram cream 0.625 mg VAGINAL MOFR Rx Instructions: off 5 days; repeat cycle ascorbic acid (vitamin C) 1,000 mg tablet 1 g PO DAILY famotidine [Pepcid] 20 mg tablet 20 mg PO DAILY PRN (Reason: GERD) lisinopril 10 mg tablet 10 mg PO DAILY calcium carbonate 600 MG tablet 1,200 mg PO DAILY lorazepam 0.5 MG tablet 0.5 - 1 mg PO DAILY PRN PRN (Reason: Anxiety) cholecalciferol (vitamin D3) 1,000 UNIT capsule 1,000 unit PO 0800,1200 noapzcuuaxyu-Oa-otcm-minerals 1 EACH tablet 1 ea PO DAILY cinnamon bark 500 MG capsule 1,000 mg PO 0800,1200 red yeast rice 600 MG capsule 600 mg PO 0800,1200 amlodipine 5 mg tablet 7.5 mg PO DAILY omeprazole 20 mg capsule,delayed release(DR/EC) 20 mg PO DAILY Qty: 30 0RF loratadine [Claritin] 10 mg Tablet 10 mg PO DAILY Dry Eye Relief 1-0.2-0.2 % Drops 1 drp EACH EYE BID PRN (Reason: Dry Eyes) Referrals / Follow Up: Bassam Johnson DO [Primary Care Provider] - Disposition Disposition (needs filled in before D/C Order can be placed): Home, Self Care 12/22/22 0810<Electronically signed by Loli Chan MD>Loli Chan MD CC: Dr. Bassam Johnson MD ~ Signed [facility] Work Phone: 1(824) 527-917006-22-2023 History and physical note Author Dr. Chan [facility] December 22, 2022 7:12am Note Date/Time December 22, 2022 7:08 am [facility] Medical Records Department [address] [place] [id number] H&P Exam - Surgical 12/22/22 0705 MR#: [id number] Acct: [id number] Name: ABY TELLES Rep #:[id number] : 1950 72 From: Loli Chan MD PCP: Dr. Bassam Johnson MD Status:REG S [place] Location: [place] [address] HPI - General General Date of Service: 12/22/22 HPI Narrative ABY TELLES, is a 72 F who presents for umbilical hernia repair possible mesh. Patient states since her appointment on 11/21/2022 she has had a couple times where it has been a little more discomfort at her umbilicus and she did work andreduce it back in her abdomen. office visit 11/21/22 HPI HPI: 72-year-old female presents to discuss umbilical hernia again.? Patient was previously seen in May 2022 for this at that time she decided to continue to monitor.? Patient did go to the ER on Monday due to upper back pain she was diagnosed with periscapular pain and given a shot of Kenalog.? Patient states also during this time she did have some pain in her midline go towards her umbilicus and then to the left of the umbilicus.? Patient states that she still been able to push her hernia back in denies any pain directly at her hernia.? Patient thinks it may be time to have it repaired. [facility] Medical History (Updated 12/14/22 @ 14:29 by Kacy Mackay) Anxiety Arthritis Back pain cataract surgery (~2015) Cystitis Dietary restriction Difficulty balancing Gastric reflux H/O vaginal delivery Hay fever Heart disease History of edema Hypertension Neck pain Non-smoker Post-menopausal Seasonal allergies Shoulder pain Wears glasses Wears partial dentures Home Medications calcium carbonate 600 mg calcium (1,500 mg) tablet 1,200 mg PO DAILY supplement 01/24/17 [History Last Taken 11/22/21] cholecalciferol (vitamin D3) 25 mcg (1,000 unit) capsule 1,000 unit PO 0800,1200supplement 01/24/17 [History Last Taken 11/22/21] cinnamon bark 500 mg capsule 1,000 mg PO 0800,1200 supplement 01/24/17 [History Last Taken 11/22/21] lorazepam 0.5 mg tablet 0.5 - 1 mg PO DAILY PRN PRN Anxiety 01/24/17 [History Last Taken 12/22/22] botmwhswxjgh-Gq-kszw-minerals 1 ea PO DAILY supplement 01/24/17 [History Last Taken 11/22/21] red yeast rice 600 mg capsule 600 mg PO 0800,1200 supplement 01/24/17 [History Last Taken 11/22/21] conjugated estrogens 0.625 mg/gram vaginal cream (Premarin) 0.625 mg vaginal MOFR Check with primary doctor 08/25/20 [History Last Taken 11/19/21] fluticasone propionate 50 mcg/actuation nasal spray,suspension 1 spray intranasal DAILY allergies 08/25/20 [History Last Taken 11/22/21] famotidine 20 mg tablet (Pepcid) 20 mg PO DAILY PRN GERD 08/12/21 [History Last Taken Unknown] ascorbic acid (vitamin C) 1,000 mg tablet 1 g PO DAILY supplement 08/26/21 [History Last Taken 11/22/21] amlodipine 5 mg tablet 7.5 mg PO DAILY hypertension 05/09/22 [History Last Taken 12/22/22] lisinopril 10 mg tablet 10 mg PO DAILY 05/09/22 [History Last Taken 12/22/22] omeprazole 20 mg capsule,delayed release 20 mg PO DAILY #30 CAPSULES 09/22/22 [Rx Last Taken Unknown] loratadine 10 mg tablet (Claritin) 10 mg PO DAILY 12/14/22 [History Last Taken Unknown] peg [id number]-yacnjcep 1 %-0.2 %-0.2 % eye drops (Dry Eye Relief) 1 drp EACH EYE BID PRN Dry Eyes 12/14/22 [History Last Taken Unknown] Allergy/AdvReac Type Severity Reaction Status Date / Time cyclobenzaprine Allergy Mild other Verified 12/22/22 06:21 oxycodone [From Percocet] AdvReac DIZZY,LIGHT Verified 12/22/22 06:21 HEADNESS Family History Other Diabetes Heart disease Hypertension Surgical History (Updated 12/14/22 @ 14:29 by Kacy Mackay) History of carpal tunnel release of both wrists (~2016) Hx of bilateral cataract extraction Social History Smoking Status: Never smoker alcohol intake: never substance use type: does not use caffeine: Yes what type of physical activity do you participate in: walking frequency: 5-6 times per week seatbelt use: always do you feel safe at home: Yes 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- Vital Signs Vital Signs Vital Signs: 12/22/22 06:25 12/22/22 06:25 Temperature 97.9 F Temperature Source Temporal Pulse Rate 56 L Respiratory Rate 16 Respiratory Pattern Normal Blood Pressure 128/53 H Blood Pressure Mean 78 Blood Pressure Source Monitor Blood Pressure Position Semi-Fowlers Blood Pressure Location Right Arm Pulse Ox 97 Oxygen Delivery Method Room Air Weight Weight: 134 lb 14.766 oz Body Mass Index (BMI) 26.3 Physical Exam Const alert, oriented x3 and no apparent distress HEENT normocephalic and head/scalp atraumatic Resp normal respiratory effort Cardio regular rate GI soft to palpation and non-tender; Negative for non-distended GI Narrative: Umbilical hernia?reducible Palpation: Negative for guarding Extremity no clubbing, cyanosis or edema Neuro CN's II-XII intact bilaterally Psych mental status grossly normal Assessment & Plan Assessment/Plan (1) Umbilical hernia: PLAN: Plan Plan to do an umbilical hernia repair with possible mesh. Reviewed the procedurewith the patient including the risks, including but not limited to infection, bleeding, injury to the small bowel, and recurrence. All questions were answered. Loli Chan M.D. Pager: [phone] [facility] [address] [place] [address], [facility], [address] [place] [id number] Office: [phone] 12/22/22711 <Electronically signed by Loli Chan MD> Cosigner Signature (if applicable): CC: Dr. Bassam Johnson MD; Dr. Loli Chan MD~ Signed [facility] Work Phone: 1(263) 733-982806-22-2023 [facility]* Diagnosis Onset Date Resolution Status Atypical mole acute [id number] acute Left ovarian cyst acute Umbilical hernia acute Umbilical hernia acute Abdominal pain, epigastric a cute Hernia, umbilical acute Partial obstruction of small intestine acute [facility] Work Phone: evaluation note* Diagnosis Onset Date Resolution Status Umbilical hernia acute Hernia, umbilical acute Abdominal pain, epigastric r esolved Partial obstruction of small intestine resolved Urinary tract infection none active [facility] Work Phone: Evaluation note* Diagnosis Onset Date Resolution Status Encounter for routine gynecological examination noneactive [facility] Work Phone: Evaluation note* Diagnosis Onset Date Resolution Status Encounter for routine gynecological examination noneactive Umbilical hernia acute [facility] Work Phone: Evaluation note* Diagnosis Onset Date Resolution Status History of umbilical hernia repair 2022 acute [facility] Work Phone: evaluation noteNo assessment information available [facility] Work Phone: Evaluation note* Diagnosis Onset Date Resolution Status Cystitis acute [id number] acute Encounter for routine gynecological examination noneactive [facility] Work Phone: Evaluation note* Diagnosis Onset Date Resolution Status Admit Date Encounter for routine gynecological examination noneactive November 182024 2:10pm [facility] Work Phone: Reason for referral (narrative)No reason for referral information availableWWood [facility] Work Phone: Chief Complaint and Reason for Visit Chief Complaint possible prolapse or infection/ annual sched. 08/26 est annual, last seen 08/25/20 Umbilical Hernia SCREENING OVERIAN CYST SMALL BOWEL OBSTRUCTION SMALL BOWEL OBSTRUCTION Reason for Visit Atypical mole [id number] Left ovarian cyst Umbilical hernia Umbilical hernia Abdominal pain, epigastric Hernia, umbilical Partial obstruction of small intestine Chief Complaint possible prolapse or infection/ annual sched. 08/26 est annual, last seen 08/25/20 Umbilical Hernia SCREENING OVERIAN CYST SMALL BOWEL OBSTRUCTION SMALL BOWEL OBSTRUCTION SMALL BOWEL OBSTRUCTION SMALL BOWEL OBSTRUCTION SMALL BOWEL OBSTRUCTION Reason for Visit Atypical mole [id number] Left ovarian cyst Umbilical hernia Umbilical hernia Abdominal pain, epigastric Hernia, umbilical Partial obstruction of small intestine Chief Complaint Umbilical Hernia SCREENING OVERIAN CYST SMALL BOWEL OBSTRUCTION SMALL BOWEL OBSTRUCTION SMALL BOWEL OBSTRUCTION SMALL BOWEL OBSTRUCTION SMALL BOWEL OBSTRUCTION Urinary tract infection Reason for Visit Umbilical hernia Hernia, umbilical Abdominal pain, epigastric Partial obstruction of small intestine Urinary tract infection Chief Complaint SCREENING Annual (METAL MELTER) Reason for Visit Encounter for routin e gynecological examination Chief Complaint SCREENING Annual (METAL MELTER) GENERAL ILLNESS Reason for Visit Encounter for routin e gynecological examination Chief Complaint SCREENING Annual (METAL MELTER) GENERAL ILLNESS LEFT OVARIAN CYST Reason for Visit Encounter for routin e gynecological examination Chief Complaint SCREENING Annual (METAL MELTER) GENERAL ILLNESS LEFT OVARIAN CYST BACK PAIN NAVAL HERNIA UMB HERNIA REP POSS MESH UMB HERNIA REP POSS MESH Reason for Visit Encounter for routin e gynecological examination Umbilical hernia Chief Complaint Annual (METAL MELTER) GENERAL ILLNESS LEFT OVARIAN CYST BACK PAIN NAVAL HERNIA UMB HERNIA REP POSS MESH UMB HERNIA REP POSS MESH DYSURIA AND FREQUENCY Reason for Visit Encounter for routin e gynecological examination Umbilical hernia Chief Complaint DYSURIA AND FREQUENC Y HERNIA 12/22 FALL GENERAL ILLNESS Reason for Visit History of umbilical hernia repair Chief Complaint FALL GENERAL ILLNESS Chief Complaint SCREENING Chief Complaint SCREENING Annual (METAL MELTER) OVARIAN CYST LEFT SIDE Reason for Visit Cystitis [id number] Encounter for routine gynecological examination Chief Complaint Admit Date SCREENING September 16, 2024 12: 53pm Reason for Visit Admit Date Encounter for screening for malignant ne oplasm of colon May 29, 2024 6:12am Chief Complaint Admit Date SCREENING September 16, 2024 12: 53pm Annual (METAL MELTER) November 18, 2024 2:10p m Reason for Visit Admit Date Encounter for routine gynecological exam ination November 18, 2024 2:10pm Family History No Family History Records Found Relationship Condition Age at Onset Recorded Date/T saad Not Specified Diabetes mellitus Unknown Cardiac disease Unknown Hypertension Unknown Advance Directives No Advanced Directives Records Found Advance Directive Response Recorded Date/ Time Living Will Yes November 22, 2021 1 0:44pm Power of Room Service [place] Yes November 22, 2021 10:44pm Advance Directive Response Recorded Date/ Time Living Will Yes November 23, 2021 2 :15am Power of Room Service [place] Yes November 23, 2021 2:15am Advance Directive Response Recorded Date/ Time Name of Medical Power of Room Service [place] Ruthy Telles November 23, 2021 2:15am Living Will Yes November 23, 2021 2 :15am Power of Room Service [place] Yes November 23, 2021 2:15am Advance Directive Response Recorded Date/ Time Name of Medical Power of Room Service [place] HAIDER MARIESUJIT September 22, 2022 11:21am Living Will Yes September 22, 2022 11:21am Power of Room Service [place] Yes September 22 11:21am Advance Directive Response Recorded Date/ Time Name of Medical Power of Room Service [place] HAIDER MARIESUJIT September 22, 2022 11:21am Name of Medical Power of Room Service [place] HAIDER November 16, 2022 7:42pm Name of Medical Power of Room Service [place] RUTHY ZENG December 14, 2022 2:29pm Living Will Yes December 14, 2022 2:29pm Power of Room Service [place] Yes December 14 2:29pm Advance Directive Response Recorded Date/ Time Name of Medical Power of Room Service [place] RUTHY TELLES- April 25, 2023 4:53pm Living Will Yes April 25 4:53pm Power of Room Service [place] Yes April 25, 2023 4:53pm Advance Directive Response Recorded Date/ Time Name of Medical Power of Room Service [place] RUTHY TELLES- April 25, 2023 3:53pm Living Will Yes April 25 3:53pm Power of Room Service [place] Yes April 25, 2023 3:53pm Advance Directive Response Recorded Date/ Time Living Will Yes April 25 4:53pm Power of Room Service [place] Yes April 25, 2023 4:53pm Advance Directive Response Recorded Date/ Time Living Will Yes May 27, 2 024 10:41am Do you have a Healthcare Pow er of Room Service [place]? Yes May 27, 2024 10:41am Name of Medical Power of Room Service [place] JASE MENDEZ May 27, 2024 10:41am Summary Purpose Additional Source Comments Goals (unrecognized section and content) Goals may be documented in a n alternate sectionGoals may be documented in an alternate sectionGoals may be documented in an alternate sectionGoals may be documented in an alternate sectionGoals may be documented in an alternate sectionGoals may be documented in an alternate sectionGoals may be documented in an alternate sectionGoals may be documented in an alternate sectionGoals may be documented in an alternate sectionGoals may be documented in an alternate sectionGoals may be documented in an alternate sectionGoals may be documented in an alternate sectionGoals may be documented in an alternate section Care Teams (unrecognized sec tion and content) Team Status: Active Member Role Status Dates Dr. Bassam Johnson DO Family Provider Active Dr. Bassam Johnson DO Primary Care Provider Active Team Status: Inactive Member Role Status Dates Dr. Bassam Johnson DO Primary Care Provider, Referring Provider Active Dr. Lore Scanlon MD Attending Provider Active Team Status: Inactive Member Role Status Dates Dr. Bassam Johnson DO Primary Care Provider Active Dr. Lore Scanlon MD Attending Provider, Referr ing Provider Active Team Status: Inactive Member Role Status Dates Dr. Bassam Johnson DO Primary Care Provider Active Dr. Saad Leos , DO Emergency Provider Active Team Status: Inactive Member Role Status Dates Dr. Bassam Johnson DO Primary Care Provider Active Dr. Lore Scanlon MD Attending Provider Active Team Status: Inactive Member Role Status Dates Dr. Bassam Johnson DO Primary Care Provider Active Dr. Saad Leos DO Attending Provider, Emergency Provider Active Team Status: Inactive Member Role Status Dates Dr. Bassam Johnson DO Primary Care Provider, Referring Provider Active Dr. Loli Chan MD Attending Provider Active Team Status: Active Member Role Status Dates Dr. Bassam Johnson DO Primary Care Provider Active Dr. Loli Chan MD Attending Provi virgil, Referring Provider, Other Provider Active Team Status: Inactive Member Role Status Dates Dr. Bassam Johnson DO Primary Care Provider Active Dr. Keyon Mayer MD Attending Provider, Emergency Provider Active Team Status: Inactive Member Role Status Dates Dr. Bassam Johnson DO Primary Care Provider Active Dr. Loli Chan MD Attending Provider, Referring Provider Active Team Status: Inactive Member Role Status Dates Dr. Bassam Johnson DO Primary Care Provi virgil, Attending Provider, Referring Provider Active Team Status: Active Member Role Status Dates Dr. Bassam Johnson DO Primary Care Provider Active Dr. Debora Toussaint MD Attending Provider, Referring P rovider Active Team Status: Inactive Member Role Status Dates Dr. Bassam Johnson DO Primary Care Provider Active Dr. Rachel Velez MD Emergency Provider Active Team Status: Inactive Member Role Status Dates Dr. Bassam Johnson DO Primary Care Provider Active Dr. Debora Toussaint MD Attending Provider, Referring P rovider Active Team Status: Inactive Member Role Status Dates Dr. Bassam Johnson DO Primary Care Provider Active Dr. Rachel Velez MD Attending Provider, Emergency Provider Active Team Status: Active Member Role Status Dates Dr. Bassam Johnson DO Primary Care Provider Active Team Status: Inactive Member Role Status Dates Dr. Bassam Johnson DO Primary Care Provider Active Start: May 29, 2024 End: May 29, 2024 Dr. Bassam Johnson DO Referring Provider Active Start: May 29, 2024 End: May 29, 2024 Dr. Loli Chan MD Attending Provider Active Start: May 29, 2024 End: May 29, 2024 Team Status: Active Member Role Status Dates Dr. Bassam Johnson DO Primary Care Provider Active Start: May 29, 2024 Dr. Bassam Johnson DO Referring Provider Active Start: May 29, 2024 Dr. Loli hCan MD Attending Provider Active Start: May 29, 2024 Dr. Loli Chan MD Other Provider Active S tart: May 29, 2024 Team Status: Inactive Member Role Status Dates Dr. Bassam Johnson DO Primary Care Provider Active Start: September 16, 2024 End: September 16, 2024 Dr. Lore Scanlon MD Attending Provider Active Start: September 16, 2024 End: September 16, 2024 Dr. Lore Scanlon MD Referring Provider Active Start: September 16, 2024 End: September 16, 2024 Team Status: Inactive Member Role Status Dates Dr. Bassam Johnson DO Primary Care Provider Active Start: September 30, 2024 End: September 30, 2024 Dr. Bassam Johnson DO Attending Provider Active Start: September 30, 2024 End: September 30, 2024 Dr. Bassam Johnson DO Referring Provider Active Start: September 30, 2024 End: September 30, 2024 Team Status: Inactive Member Role Status Dates Dr. Bassam Johnson DO Primary Care Provider Active Start: November 18, 2024 End: November 18, 2024 Dr. Bassam Johnson DO Referring Provider Active Start: November 18, 2024 End: November 18, 2024 Dr. Lore Scanlon MD Attending Provider Active Start: November 18, 2024 End: November 18, 2024 INFORMATION SOURCE (unrecogn ized section and content) DATE CREATED AUTHOR 11/19/2024 [facility] FOR RECORDS PERTAINING TO PATIENTS WHO ARE OR HAVE BEEN ENROLLED IN A CHEMICAL DEPENDENCY/SUBSTANCEABUSE PROGRAM, SOME INFORMATION MAY BE OMITTED. This clinical summary was aggregated from multiple sources. Caution should be exercised in using it in the provision of clinical care. This summary normalizes information from multiple sources, and as a consequence, information in this document may materially change the coding, format and clinical context of patient data. In addition, data may be omitted in some cases. CLINICAL DECISIONS SHOULD BE BASED ON THE PRIMARY CLINICAL RECORDS. [facility]. provides no warranty or guarantee of the accuracy or completeness of information in this document.
--- NOTE | 2025-01-22 01:14 | EX.ED.DYSGE1 ---
HPI History of Present Illness Chief Complaint: Abd Pain Informant: patient and spouse/S.O. Narrative Narrative: Patient is a 74-year-old female with past medical history of hypertension and interstitial cystitis as well as previous umbilical hernia fixed with mesh in 2022. She states that she always has some lower abdominal discomfort secondary to her interstitial cystitis. However around 5 or 6 PM today after eating dinner she felt the pain in the mid upper abdomen. She states that there has been no associated vomiting diarrhea or constipation. However the pain has been persistent since its onset. She has concerned that this could be related to her previous abdominal surgery and secondary to this comes in for evaluation. [facility] Medical History Wears partial dentures Wears glasses Post-menopausal Anxiety Arthritis Dietary restriction Gastric reflux Non-smoker History of edema H/O vaginal delivery Cystitis cataract surgery (~2015) Back pain Neck pain Difficulty balancing Hay fever Seasonal allergies Heart disease Shoulder pain Hypertension Home Medications Medication Instructions Recorded Last Taken Type calcium carbonate 1,200 mg PO DAILY supplement 01/24/17 05/28/24 History cholecalciferol (vitamin D3) 25 2,000 unit PO DAILY supplement 01/24/17 05/28/24 History mcg (1,000 unit) capsule cinnamon bark 500 mg capsule 1,000 mg PO 0800,1200 supplement 01/24/17 05/28/24 History lorazepam 0.5 mg tablet 0.5 - 1 mg PO DAILY PRN PRN Anxiety 01/24/17 01/21/25 20:30 History hzyfeohlfxyq-Ul-bcje-minerals 1 ea PO DAILY supplement 01/24/17 05/28/24 History red yeast rice 600 mg capsule 600 mg PO 0800,1200 supplement 01/24/17 05/28/24 History fluticasone propionate 50 1 spray intranasal DAILY allergies 08/25/20 11/22/21 History mcg/actuation nasal spray,suspension famotidine 20 mg tablet (Pepcid) 20 mg PO DAILY PRN GERD 08/12/21 01/21/25 12:00 History ascorbic acid (vitamin C) 1,000 mg 1 g PO DAILY supplement 08/26/21 05/28/24 History tablet amlodipine 5 mg tablet 5 mg PO DAILY hypertension 05/09/22 05/29/24 History lisinopril 10 mg tablet 10 mg PO DAILY 05/09/22 05/29/24 History peg 246-jwvifzkrgkae-pdfonpit 1 1 drp EACH EYE BID PRN Dry Eyes 12/14/22 05/28/24 History %-0.2 %-0.2 % eye drops (Dry Eye Relief) acetaminophen 500 mg tablet 1,000 mg PO BID 03/11/24 01/21/25 19:10 History (Tylenol Extra Strength) dexamethasone 0.1 % eye 1 drp ophthalmic (eye) BID PRN 03/11/24 Unknown History drops,suspension itching loratadine 10 mg tablet (Claritin) 10 mg PO DAILY 03/11/24 05/28/24 History amlodipine 2.5 mg tablet 2.5 mg PO DAILY 03/31/24 05/29/24 History ferrous sulfate 325 mg (65 mg 325 mg PO DAILY 05/27/24 Unknown History iron) tablet (Iron (ferrous sulfate)) mecobalamin (vitamin B12) 500 mcg 500 mcg PO DAILY 11/18/24 Unknown History chewable tablet Allergy/AdvReac Type Severity Reaction Status Date / Time cyclobenzaprine Allergy Mild other Verified 01/21/25 21:46 montelukast (From Singulair) Allergy PT UNSURE Verified 01/21/25 21:46 OF REACTION latex AdvReac irritation Verified 01/21/25 21:46 oxycodone (From Percocet) AdvReac DIZZY,LIGHT Verified 01/21/25 21:46 HEADNESS Family History Other Diabetes Heart disease Hypertension Surgical History History of umbilical hernia repair (~12/2022) Hx of bilateral cataract extraction History of carpal tunnel release of both wrists (~2016) Social History household members: spouse current occupational status: retired Smoking Status: Never smoker alcohol intake: never substance use type: does not use caffeine: Yes what type of physical activity do you participate in: walking frequency: 5-6 times per week seatbelt use: always do you feel safe at home: Yes additional social history: [employer] [facility] ED Constitutional Constitutional ED: Denies chills or fever(s) Eyes Eyes: Denies change in vision ENT ENT ED: Denies sore throat Cardiovascular Cardiovascular: Denies chest pain Respiratory/Chest Respiratory/Chest: Denies cough or dyspnea Gastrointestinal Gastrointestinal: Reports abdominal pain; Denies constipation, diarrhea, nausea or vomiting Musculoskeletal Musculoskeletal: Denies back pain Integumentary Denies rash Neurologic Neurologic: Denies headache(s) Hematologic/Lymphatic Hematologic/Lymphatic: Denies easy bleeding or easy bruising EXAM Physical Exam Const Vital Signs: 01/21/25 21:42 01/21/25 23:35 01/22/25 01:00 Temperature 97.8 F Temperature Source Oral Pulse Rate 75 60 55 L Respiratory Rate 17 18 18 Blood Pressure 163/62 H 144/72 H 143/56 H Blood Pressure Mean 95 96 85 Pulse Ox 97 100 98 Oxygen Delivery Method Room Air Room Air Room Air 01/22/25 01:56 Temperature 98 F Temperature Source Pulse Rate 61 Respiratory Rate 16 Blood Pressure 143/63 H Blood Pressure Mean 89 Pulse Ox 100 Oxygen Delivery Method Positive well nourished, well developed and obese General Appearance ED: well developed; Negative for pallor Nutritional Appearance: obese HEENT HEENT Narrative: Normocephalic atraumatic No tongue or lip swelling no oral lesions no airway edema or compromise; no secondary findings in the posterior pharynx to suggest infection Eyes PERRL and EOMs intact bilaterally General Eye ED: Negative for scleral icterus Neck supple Neck Narrative: No nuchal rigidity or meningeal signs Resp normal respiratory effort and clear to auscultation bilaterally Cardio regular rate and regular rhythm Rate: other Other Details: Radial and carotid pulses are equal and symmetric GI non-distended GI Narrative: Abdomen is soft and nondistended with normal active bowel sounds. There is a small hernia/scar tissue noted at the umbilicus. There is pain with palpation at this site. No voluntary guarding or rigidity. No pulsatile mass. No increased tympany. No peritoneal signs Auscultation: normoactive bowel sounds Palpation: soft Extremity normal to inspection Neuro oriented x3, CN's II-XII intact bilaterally and no sensory deficits noted Sensorium / Orientation: alert Motor Exam: strength 5/5 throughout Psych mental status grossly normal Skin no rashes or lesions noted General Skin Exam: Negative for jaundice or pallor MDM MDM MDM Narrative Medical decision making narrative: Patient presented to the ER hypertensive but otherwise with stable vitals and does have a past medical history of this. With her history of nontraumatic sudden onset mid abdominal pain with history of previous hernia repair there is concern for potential intestinal incarceration versus small bowel obstruction versus perforation. Secondary to this basic labs were obtained with a CT scan with IV contrast. Patient's white count is elevated at 13.4 but otherwise there are no clinically significant findings such as elevation of the lipase to suggest pancreatitis. CT scan showed questionable early/partial small bowel obstruction. Secondary to this the case was discussed with Dr. Little/general surgery. He recommends admission at this time so a small bowel follow-through can be completed in the morning to ensure there is or is not a developing obstruction. This plan of care was discussed with the patient who is agreeable to it and therefore should be admitted to his service for continued care History & Record Review Discussion w/independent historian: Patient and Significant other Lab Data Attestation: I reviewed the patient's lab results. Labs: Laboratory Results - last 24 hr 01/21/25 01/22/25 22:55 00:19 WBC 13.4 H RBC 3.64 L Hgb 11.8 L Hct 33.6 L MCV 92.3 MCH 32.4 H MCHC 35.1 RDW Std Deviation 45.1 H RDW Coeff of Clay 13.3 Plt Count 384 MPV 8.9 Immature Gran % (Auto) 0.400 Neut % (Auto) 66.7 Lymph % (Auto) 22.6 [place] % (Auto) 7.0 Eos % (Auto) 2.4 Baso % (Auto) 0.9 Absolute Neuts (auto) 8.9 H Absolute Lymphs (auto) 3.02 Nucleated RBC % 0 Sodium 129 L Potassium 4.2 Chloride 94 L Carbon Dioxide 21.0 Anion Gap 14 BUN 23 H Creatinine 1.37 H Estim Creat Clear Calc 31.10 L Est GFR (MDRD) Non-Af 40 L BUN/Creatinine Ratio 16.5 Glucose 112 H Lactic Acid 1.6 Calcium 9.4 Total Bilirubin 0.18 AST 22 ALT 20 Alkaline Phosphatase 48 Total Protein 7.1 Albumin 4.1 Globulin 3.0 Albumin/Globulin Ratio 1.4 Lipase 62 Radiography Diagnostic Testing: Clinical Impression(s) from Imaging Studies Abdomen/Pelvis CT 01/22/25 23:47 IMPRESSION: Findings suggest a mid abdominal early/partial small bowel obstruction. Consider small bowel follow-through examination for further assessment. No acute findings otherwise noted. Reading Location: [facility]- Management Discussion w/another healthcare provider: [facility] Discharge Plan Dx/Rx/DC Orders Clinical Impression: Partial small bowel obstruction, Interstitial cystitis, Hypertension Disposition Disposition: Acute Care [facility]
[2025-01-22] MEDS: Pantoprazole Sodium 40 MG in 0.9% Normal Saline (100mL MB+) 100 ML 300 MG IV (01:50)
--- OUTSIDE RECORDS SUMMARY | 2025-01-22 02:07 | XMS RPT_ITS | CCD ---
Author Organization [facility] Care Team Providers Care Tank Cooper Name Role Phone Marlys Clements Unavailable Faustin, Cathy N Unavailable Faustin, Cathy N Unavailable Faustin, Cathy N Unavailable Faustin, Cathy N Unavailable Faustin, Cathy N Unavailable Faustin, Cathy N Unavailable Marlys Clements Unavailable Faustin, Cathy N Unavailable Dr. Bassam Johnson Primary Care Provider Dr. Bassam Johnson Referring Provider [place] CASKET ASSEMBLER, CASKET ASSEMBLER-C Tiffanie Attending Provider [phone] Dr. Lore Scanlon Attending Provider [phone] Dr. Loli Chan Attending Provider Dr. Lore Scanlon Referring Provider [phone] Dr. Keyon Mayer Emergency Provider Dr. Milo Borges Admit Provider Dr. Milo Borges Attending Provider Dr. Milo Borges Other Provider Dr. Yaya Little Attending Provider [phone] Dr. Yaya Little Other Provider Dr. Quiana [...] Provider Dr. Bassam Johnson DO Referring Provider oRcio KATHLEEN, Dr. Ennis Attending Provider Rocio KATHLEEN, Dr. Ennis Other Provider Dr. Lore Scanlon MD Attending Provider [phone] Dr. Lore Scanlon MD Referring Provider [phone] Dr. Bassam Johnson DO Primary Care Provider Dr. Bassam Johnson DO Attending Provider Dr. Bassam Johnson DO Referring Provider [phone] Hossein North Attending Unavailable Hossein North Referring Unavailable Alex, Bassam Primary Care Unavailable oLre Scanlon Attending Unavailable Lore Scanlon Referring Unavailable [...] sources) cyclobenzaprine Drug Allergy 11-23-19 22 other [facility] (17 sources) oxyCODONE Drug Allergy 11-23-19 22 DIZZY,LIGHTHEA DNESS [facility] (3 sources) Latex Propensity to adverse reactions 05-27-20 24 irritation [facility] Comment on above: gloves (3 sources) montelukast Drug Allergy 05-27-20 24 PT UNSURE OF REACTION [facility] (1 source) cyclobenzaprine Drug Allergy 11-19-19 25 [facility] (1 source) Latex Drug allergy (disorder) 11-19-19 25 [facility] (1 source) montelukast Drug Allergy 11-19-19 25 [facility] (1 source) oxyCODONE Drug Allergy 11-19-19 25 [facility] Medications Current Medications Medication Drug [...] administer into each nostril Start: 05-17-2016 FLUTICASONE WA OPIONATE 50 MCG/ACT SUSP FLUTICASONE PROPIONATE [id number] Danish Spears glycerin 2 mg/ml / hypromellose 2 mg/ml / polyethylene glycol 400 10 mg/ml ophthalmic solution (10 sources) Non-Standardized Chemical Allergen Start: 12-14-2022 Peg 732-Rcdrkotwkepk-Cyeemgs n (Dry Eye Relief) 1-0.2-0.2 % Drops [...] 05-17-2016 ATIVAN 1 MG TA BS LORAZEPAM [id number] Danish Spears mecobalamin (1 source) Start: 11-18-2024 Mecobalamin (V itamin B12) 500 mcg tablet,chewable Active ug PO DAILY November 18, 2024 12:00am Uixkioapqoer-Ed-Godw-Mineral s (14 sources) Start: 01-24-2017 Multivitamin-C o-Yams-Ggmiyijd Active 1 EACH PO DAILY January 24, 2017 8:21am Start: 01-24-2017 Multivitamin-C h-Jper-Hfxqxvng Active 1 EACH PO DAILY January 23, 2017 11:00pm Start: 01-24-2017 Multivitamin-C n-Wgws-Amgqsrts Active 1 EACH PO DAILY January 24, 2017 12:00am Bjwhwwxxpqpk-Rp-Armv-Mineral s 1 EACH tablet (3 sources) Start: 01-24-2017 take 1 tablet by mouth once daily Uvitgxbznxsz-Sa-Dtar-Minerals 1 EACH tablet Active 1 NMA PO [...] Anti-inflammatory Drug Start: 05-17-2016 ASPIRIN 81 MG [facility] ASPIRIN 50325970072 Danish Spears calcium (13 sources) Phosphate Binder, Calcium Start: 05-17-2016 CALCIUM 1000 + D TABS CALCIUM CARB-CHOLECALCIFER OL TABS 58197619076 Danish De La Garza Tory Start: 05-17-2016 CALCIUM 1000 + D TABS CALCIUM CARB-CHOLECALCIFEROL TABS 34025687875 Danish Spears CALCIUM CARB-CHOLECALCIFEROL TABS (2 sources) Start: 05-17-2016 CALCIUM 1000 + D TABS CALCIUM CARB-CHOLECALCIFEROL TABS 80408122027 Danish Spears calcium citrate 1190 mg / [...] CO Q-10 200 MG CAPS COENZYME Q10 06792642247 Danish Spears Start: 05-17-2016 CO Q-10 200 MG CAPS COENZYME Q10 24781613486 Danish Spears Coenzyme Q04-Itjaguz E (14 sources) Start: 01-24-2017 End: 09-01-2019 Coenzyme G67-Sxtiugg E Disco ntinued 1 EACH PO DAILY January 24, 2017 8:21am September 01, 2019 3:07pm Start: 01-24-2017 End: 09-01-2019 Coenzyme J69-Cfkdqhm E Disco ntinued 1 EACH PO DAILY January 23, 2017 11:00pm September 01, 2019 2:07pm Start: 01-24-2017 End: 09-01-2019 Coenzyme N68-Wfqkumx E Disco ntinued 1 EACH PO DAILY January 24, 2017 12:00am September 01, 2019 3:07pm Coenzyme N49-Danfgut E 1 EACH capsule (3 sources) Start: 01-24-2017 End: 09-01-2019 take 1 capsule by mouth once daily Coenzyme Y12-Uzoeejc E 1 EACH capsule Discontinued 1 NMA [...] to decrease dose as tolerated. estrogens, conjugated (residential) 0.625 mg/ml vaginal cream (20 sources) Estrogen [...] OIL 1000 MG CAPS OMEGA-3 FATTY ACIDS 97159499055 Danish Spears Start: 05-17-2016 FISH OIL 1000 MG CAPS OMEGA-3 FATTY ACIDS 42011604218 Danish Spears fluconazole 150 mg oral tablet [...] 19, 2022 1:00am as a single dose WSTRYNTXWUB-KFAQJSYPI-KUP C- [place] (8 sources) Start: 05-17-2016 GLUCOSAMINE CH ONDR 500 COMPLEX CAPS KGVYWBBXTSF-UNZLTLNRU-LCZ C-MN 88903054076 Danish De La Garza Tory ZAJQQERYRGK-NEMPOJFQL-XFJ C- [place] (7 sources) Start: 05-17-2016 GLUCOSAMINE CH ONDR 500 COMPLEX CAPS VFLAIWQVGSQ-BIRCACZPN-PMK C-MN 18558744148 Danish De La Garza Tory Start: 05-17-2016 GLUCOSAMINE CH ONDR 500 COMPLEX CAPS TIQKOJMAXTF-CPIHLJLQK-YWJ C-[place] 28061676802 Danish Spears hydroCHLOROthiazide 50 mg / triamterene [...] 05-17-2016 TRIAMTERENE-HC TZ 75-50 MG TABS TRIAMTERENE-HCTZ 36949813051 Danish Spears linseed oil 1000 mg oral capsule (17 sources) Start: 01-24-2017 End: 09-01-2019 Flaxseed Oil 1,000 MG capsule Discontinued 1000 mg PO 0800,1200 January 24, 2017 12:00am September 01, 2019 3:06pm 24 hr loratadine 10 mg / pseudoePHEDrine sulfate 240 mg extended release oral tablet (15 sources) alpha-Adrenergic Agonist Start: 05-17-2016 CLARITIN-D 24 HOUR 10-240 MG BW49X-BTE LORATADINE-PSEUDOEPHED RINE 09978383161 Danish Spears Start: 05-17-2016 CLARITIN-D 24 HOUR 10-240 MG FU05I-LDQ LORATADINE-PSEUDOEPHEDRINE 68318059591 Danish Spears magnesium (15 sources) Start: 05-17-2016 MAGNESIUM 400 MG TABS MAGNESIUM 82797456067 Danish Spears Start: 05-17-2016 MAGNESIUM 400 MG TABS MAGNESIUM 97818417065 Danish Holli Spears magnesium oxide 400 mg [...] MULTIVITAMIN W OMEN 50+ TABS MULTIPLE VITAMINS-MINERALS 08092372821 Danish Separs MULTIPLE VITAMINS-MINERALS (7 sources) Start: 05-17-2016 MULTIVITAMIN W OMEN 50+ TABS MULTIPLE VITAMINS-MINERALS 79563504779 Danish Spears Start: 05-17-2016 MULTIVITAMIN W OMEN 50+ TABS MULTIPLE VITAMINS- MINERALS 84968421317 Danish Spears niacin 500 mg oral tablet [...] OIL 1000 MG CAPS OMEGA-3 FATTY ACIDS 93281487251 Danish Spears [place]-3 Fatty Acids-Fish Oil (14 sources) Start: 01-24-2017 End: 09-01-2019 [place]-3 Fatty Acids-Fish Oil Discontinued 1 EACH PO 0800,1200 January 24, 2017 8:21am September 01, 2019 3:07pm Start: 01-24-2017 End: 09-01-2019 [place]-3 Fatty Acids-Fish Oil Discontinued 1 EACH PO 0800,1200 January 23, 2017 11:00pm September 01, 2019 2:07pm Start: 01-24-2017 End: 09-01-2019 [place]-3 Fatty Acids-Fish Oil Discontinued 1 EACH PO 0800,1200 January 24, 2017 12:00am September 01, 2019 3:07pm [place]-3 Fatty Acids-Fish Oil 1 EACH capsule (3 sources) Start: 01-24-2017 End: 09-01-2019 [place]-3 Fatty Acids-Fish Oil 1 EACH capsule Discontinued [...] 05-17-2016 SELENIUM 200 M CG TABS SELENIUM 23869936629 Danish Spears SELENIUM (5 sources) Start: 05-17-2016 SELENIUM 200 M CG TABS SELENIUM 23062416478 Danish De La Garza Tory SELENIUM (2 sources) Start: 05-17-2016 SELENIUM 200 M CG TABS SELENIUM 54792397747 Danish Spears Selenium (14 sources) Start: 01-24-2017 [...] 1:26pm February 24, 2020 3:17pm vitamin a 27294 unt oral capsule (17 sources) Vitamin A Start: 01-24-2017 End: 09-01-2019 Vitamin A 10,000 UNIT capsule Discontinued 18145 U PO MOFR January 24, 2017 12:00am [...] Test Name Value Interpretation Reference Range Facility Vending Attendant Office Visit Reporton 11-18-2024 Vending Attendant Office Visit Report [facility] [address], [address] [place] [address] OFFICE VISIT Date of Service: 11/18/24 MR#: [id number] Acct: [id number] Name: ABY TELLES Rep #: [id number] : 1950 Provider: Dr. 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 Dexa 2022. Female Reproductive History Questions: metorrhagia: No, sexually active: Yes, dyspareunia: No and PCB: No Menopausal Symptoms: No hot flashes, No night sweats, No weight change, No mood changes, No difficulty concentr (more content not included)... [facility] Anion gap in Serum or Plasma Ordered By: Bassam Johnson on 09-30-2024 Anion gap [Moles/Vol] 13 mmol/L - [facility] BUN/creatinine ratioOrdered By: Bassam Johnson on 09-30-2024 Urea nitrogen/Creatinine [Mass ratio] 18.0 mg/mg - [facility] Basic Metabolic Profile (BMP )on 09-30-2024 BUN/CRE 18.0 RATIO Normal - [facility] Comment on above: Performed By: #### L 100.0500, L500.2500 #### [facility] [address] [facility] [place], [address] Calcium [Mass/Vol] 9.3 mg/dL Normal 7.6-11.0 [facility] Comment on above: Performed By: #### L 100.0500, L500.2500 #### [facility] [address] [place], [address] Chloride [Moles/Vol] 98 mmol/L Normal 98-108 [facility] Comment on above: Performed By: #### L 100.0500, L500.2500 #### [facility] [address] [place], [address] CO2 [Moles/Vol] 23.0 mmol/L Normal 21.0-32.0 [facility] Comment on above: Performed By: #### L 100.0500, L500.2500 #### [facility] [address] [place], [address] Creatinine [Mass/Vol] 1.38 mg/dL High 0.70-1.20 [facility] Comment on above: Performed By: #### L 100.0500, L500.2500 #### [facility] [address] [place], [address] GAP 13 Normal 5-15 [facility] Comment on above: Performed By: #### L 100.0500, L500.2500 #### [facility] [address] [place], [address] GFR/1.73 sq M.predicted among non-blacks MDRD (S/P/Bld) [Vol rate/Area] 40 mL/min/{1.73_m2} Low >60 [facility] Comment on above: Result Comment: mL/m in/1.73m2 CKD-EPI Creatinine Equation (2020) Performed By: #### L 100.0500, L500.2500 #### [facility] [address] [place], [address] Glucose [Mass/Vol] 101 mg/dL High 70-99 [facility] Comment on above: Performed By: #### L 100.0500, L500.2500 #### [facility] [address] [place], [address] Potassium [Moles/Vol] 3.9 mmol/L Normal 3.3-5.1 [facility] Comment on above: Result Comment: Hemo lysis present, Results??could be affected. ?? Performed By: #### L 100.0500, L500.2500 #### [facility] [address] [place], [address] Sodium [Moles/Vol] 134 mmol/L Normal 133-145 [facility] Comment on above: Performed By: #### L 100.0500, L500.2500 #### [facility] [address] [place], [address] Urea nitrogen [Mass/Vol] 25 mg/dL High 4-19 [facility] Comment on above: Performed By: #### L 100.0500, L500.2500 #### [facility] [address] [place], [address] CBC-Complete Blood Cnt No Di ffon 09-30-2024 Erythrocyte distribution width (RBC) [Ratio] 13.2 % Normal 11.6-14.6 [facility] Comment on above: Performed By: #### L 100.0500, L500.2500 #### [facility] [address] [place], [address] Hematocrit (Bld) [Volume fraction] 33.1 % Low 37-47 [facility] Comment on above: Performed By: #### L 100.0500, L500.2500 #### [facility] [address] [place], [address] Hemoglobin (Bld) [Mass/Vol] 11.7 g/dL Low 12.0-15.0 [facility] Comment on above: Performed By: #### L 100.0500, L500.2500 #### [facility] [address] [place], [address] MCH (RBC) [Entitic mass] 33.0 pg High 27.0-32.0 [facility] Comment on above: Performed By: #### L 100.0500, L500.2500 #### [facility] [address] [place], [address] MCHC (RBC) [Mass/Vol] 35.3 g/dL Normal 32-36 [facility] Comment on above: Performed By: #### L 100.0500, L500.2500 #### [facility] [address] [place], [address] MCV (RBC) [Entitic vol] 93.2 fL Normal 81-99 [facility] Comment on above: Performed By: #### L 100.0500, L500.2500 #### [facility] [address] [place], [address] Platelet mean volume (Bld) [Entitic vol] 8.9 fL Normal 6.2-12.0 [facility] Comment on above: Performed By: #### L 100.0500, L500.2500 #### [facility] [address] [place], [address] Platelets (Bld) [#/Vol] 385 10*3/uL Normal 150-450 [facility] Comment on above: Performed By: #### L 100.0500, L500.2500 #### [facility] [address] [place], [address] RBC (Bld) [#/Vol] 3.55 10*6/uL Low 4.2-5.4 [facility] Comment on above: Performed By: #### L 100.0500, L500.2500 #### [facility] [address] [place], [address] RDW SD 44.6 fl High 35.1-43.9 [facility] Comment on above: Performed By: #### L 100.0500, L500.2500 #### [facility] [address] [place], [address] WBC (Bld) [#/Vol] 9.3 10*3/uL Normal 4.4-11.0 [facility] Comment on above: Performed By: #### L 100.0500, L500.2500 #### [facility] [address] [place], [address] Carbon dioxide, total [Moles /volume] in Central venous bloodOrdered By: Bassam Johnson on 09-30-2024 CO2 [Moles/Vol] 23.0 mmol/L 21.0-32.0 [facility] Chloride assayOrdered By: Belen Johnson on 09-30-2024 Chloride [Moles/Vol] 98 mmol/L 98-108 [facility] Erythrocyte distribution wid th (RBC) [Ratio]Ordered By: Bassam Johnson on 09-30-2024 Erythrocyte distribution width (RBC) [Entitic vol] 44.6 fL High 35.1-43.9 [facility] Erythrocyte distribution wid th ratioOrdered By: Bassam Johnson on 09-30-2024 Erythrocyte distribution width (RBC) [Ratio] 13.2 % 11.6-14.6 [facility] Erythrocyte distribution wid th standard deviationOrdered By: Bassam Johnson on 09-30-2024 Erythrocyte distribution width (RBC) [Ratio] 44.6 fl High 35.1-43.9 [facility] GFR/1.73 sq M.predicted scott g non-blacks MDRD (S/P/Bld) [Vol rate/Area]Ordered By: Bassam Johnson on 09-30-2024 Estimated GFR (MDRD) Non-Af Amer 40 Low >60 [facility] Comment on above: mL/min/1.73m2 CKD-EP I Creatinine Equation (2020) Glomerular filtration rate ( GFR) estimation/1.73 sq m using serum, plasma, or whole bOrdered By: Bassam Johnson on 09-30-2024 GFR/1.73 sq M.predicted among non-blacks MDRD (S/P/Bld) [Vol rate/Area] 40 mL/min/{1.73_m2} Low >60 [facility] Comment on above: mL/min/1.73m2 CKD-EP I Creatinine Equation (2020) Hematocrit Auto (Bld) [Volum e fraction]Ordered By: Bassam Johnson on 09-30-2024 Hematocrit (Bld) [Volume fraction] 33.1 % Low 37-47 [facility] Hemoglobin measurementOrdere d By: Bassam Johnson on 09-30-2024 Hemoglobin (Bld) [Mass/Vol] 11.7 g/dL Low 12.0-15.0 [facility] MCV (mean corpuscular volume ) determinationOrdered By: Bassam Johnson on 09-30-2024 MCV (RBC) [Entitic vol] 93.2 fL 81-99 [facility] Mean corpuscular hemoglobin (MCH) determinationOrdered By: Bassam Johnson on 09-30-2024 MCH (RBC) [Entitic mass] 33.0 pg High 27.0-32.0 [facility] Mean corpuscular hemoglobin concentration (MCHC) determinationOrdered By: Bassam Johnson on 09-30-2024 MCHC (RBC) [Mass/Vol] 35.3 g/dL 32-36 [facility] Mean platelet volume determi nationOrdered By: Bassam Johnson on 09-30-2024 Platelet mean volume (Bld) [Entitic vol] 8.9 fL 6.2-12.0 [facility] Platelet countOrdered By: Belen Johnson on 09-30-2024 Platelets (Bld) [#/Vol] 385 10*3/uL 150-450 [facility] Potassium (Unsp spec) [Mass/ Vol]Ordered By: Bassam Johnson on 09-30-2024 Potassium [Moles/Vol] 3.9 mmol/L 3.3-5.1 [facility] Comment on above: Hemolysis present, R esults could be affected. Potassium measurement (mass/ volume)Ordered By: Bassam Johnson on 09-30-2024 Potassium (Unsp spec) [Mass/Vol] 3.9 mmol/L 3.3-5.1 [facility] Comment on above: Hemolysis present, R esults could be affected. RBC Auto (Bld) [#/Vol]Ordere d By: Bassam Johnson on 09-30-2024 RBC (Bld) [#/Vol] 3.55 10*6/uL Low 4.2-5.4 [facility] Serum creatinine measurement (mass/volume)Ordered By: Bassam Johnson on 09-30-2024 Creatinine [Mass/Vol] 1.38 mg/dL High 0.70-1.20 [facility] Serum glucose measurement (m ass/volume)Ordered By: Bassam Johnson on 09-30-2024 Glucose [Mass/Vol] 101 mg/dL High 70-99 [facility] Serum or plasma calcium ata urement (mass/volume)Ordered By: Bassam Johnson on 09-30-2024 Calcium [Mass/Vol] 9.3 mg/dL 7.6-11.0 [facility] Serum or plasma urea nitroge n measurement (mass/volume)Ordered By: Bassam Johnson on 09-30-2024 Urea nitrogen [Mass/Vol] 25 mg/dL High 4-19 [facility] Sodium levelOrdered By: Bre Johnson on 09-30-2024 Sodium [Moles/Vol] 134 mmol/L 133-145 [facility] White blood cell (WBC) count Ordered By: Bassam Johnson on 09-30-2024 WBC (Bld) [#/Vol] 9.3 10*3/uL 4.4-11.0 [facility] Breast imaging reportOrdered By: Everardo Ann on 09-16-2024 Study report [facility] Imaging Services [address] [place] [address] SCRN MAMM (CAD)W/DEBBIE BILAT MR#: [id number] Acct: [id number] Name: ABY TELLES Rep #: [id number] : 1950 F 74 From: Perfecto Ann MD PCP: Dr. Bassam Johnson MD Status: [facility] Yonathan HOLLOWAY Study:SCRN MAMM (CAD)W/DEBBIE BILAT Date of Exa m: 09/16/24 Exam# [id number] Ordering Dr: Lore Smith MD EXAM: SCRN [...] FOLLOW-UP Bilateral in 1 Year Reading Location: [place] [address] CC: Dr. Bassam Johnson MD; Dr. Lore Scanlon MD ~ Appliance Servicer: Signed [facility] SCRN MAMM (CAD)W/DEBBIE BILATo n 09-16-2024 SCRN MAMM (CAD)W/DEBBIE BILAT [facility] Imaging Services [address] [place] [id number] SCRN MAMM (CAD)W/DEBBIE BILAT MR#: [id number] Acct: [id number] Name: ABY TELLES Rep #: [id number] : 1950 F 74 From: Everardo cornejo MD PCP: Dr. Bassam Johnson MD Status: [facility] Study: SCRN MAMM (CAD)W/DEBBIE BILAT Date of Exam: 08/31 01/24 Exam# [id number] Ordering Dr: Lore Scanlon EXAM: SCRN MAMM [...] FOLLOW-UP Bilateral in 1 Year Reading Location: [place] [address] CC: Dr. Bassma Johnson MD; Dr. Lore Scanlon MD Appliance Servicer: Signed [facility] Colonoscopy Reporton 05-29-2 024 Colonoscopy Report [facility] Medical Records Department [address] [place] [address] Colonoscopy Report MR#: [id number] Acct: [id number] Name: ABY TELLES Rep #: [id number] : 1950 73 From: Loli Chan MD PCP: Dr. Bassam Johnson MD Status:REG [facility] Patient Name: Aby Telles Procedure Date: 05/29/2024 [...] that time Procedure Code(s): --- Professional --- 01009, PT, Colonoscopy, flexible; with biopsy, single or multiple Diagnosis Code(s): --- Professional --- Z12.11, Encounter for screening for malignant neoplasm of colon D12.8, Benign neoplasm of rectum CPT copyright 2021 [employer]. All rights reserved. The codes documented in this report are preliminary and upon community outreach manager review may be revised to meet current compliance requirements. MD Loli Julio MD 05/29/2024 8:04:51 AM This report has been signed electronically. Number of Addenda: 0 Note Initiated On: 05/29/2024 7:29 AM 05/29/24 0804 Date Loli Burnetteignnuris Signature: Date (if indicated) CC: Dr. Bassam Johnson MD; Dr. Loli Chan MD Date Dictated: 05/29/24728 Date Transcribed: Appliance Servicer: TR Signed [facility] MR/POSTOP.ANEon 05-29-2024 MR/POSTOP.[facility] Medical Records Department [address] [place] [address] Anesthesia Postop Eval I 05/29/24809 MR#: [id number] Acct: [id number] Name: ABY TELLES Rep #: [id number] : 1950 73 From: Fermin Mcghee PCP: Dr. Bassam Johnson MD Status:[facility] Y Race: C Location: [place] [address] Anesthesia: Postop Eval I Current Vital Signs [...] Date Fermin Restrepo Signature: Date CC: Signed [facility] MR/LQVRIRVO2sh 05-29-2024 MR/POSTOPAN2 [facility] Medical Records Department [address] [place] [address] Anesthesia Postop Eval II 05/29/24954 MR#: [id number] Acct: [id number] Name: ABY TELLES Rep #: [id number] : 1950 73 From: Pedro Zhang MD PCP: Dr. Bassam Johnson MD Status:DEP [facility] Y Race: C Location: EN Anesthesia Postop [...] Pedro Restrepo Signature: Date CC: Signed [facility] Surgery Specimen Level Duy 05-29-2024 Surgery Specimen Level IV -- Patient Age/Sex Location Account Attending Physician -- ABY TELLES 73/F EN [id number] Dr. Loli Chan MD -- Specimen: [id number] Received: 05/29/24 Status: LENNY Guerra Num: [id number] Spec Type: COLON BX Subm Dr: Dr. [...] submitted in one cassette. AM. 05/29/2024 TC:5 CPT:78617 -- Patient Age/Sex Location Account Attending Physician -- DEEPALIABY Jaja 73/F EN [id number] Dr. Loli Chan MD -- Signed (signatu re on file) Dr. Shashank Razo DO 05/31/246 -- [facility] Comment on above: Performed By: #### P SUFLOR #### [facility] [address] [place], [place] [address]le[place]ie [place], [address] Urine Cultureon 04-03-2024 [facility] Escherichia coli [place] Count 80,000-100,000 Streptococcus agalactiae (B) Streptococcus agalactiae [...] S Vancomycin Islt JOANNA 0.5 S [facility] Comment on above: Performed By: #### L 100.0500, L500.2500 #### [facility] [address] [place], [address] Basic Metabolic Profile (BMP )on 03-31-2024 BUN/CRE 17.3 RATIO Normal - [facility] Comment on above: Order Comment: SP ECIMEN IS MODERATELY LIPEMIC Performed By: #### L 100.0100, L500.2500 #### [facility] [address] [place], [address] CA,Total 8.8 mg/dL Normal 8.5-10.1 [facility] Comment on above: Order Comment: SP ECIMEN IS MODERATELY LIPEMIC Performed By: #### L 100.0100, L500.2500 #### [facility] [address] [place], [address] Chloride [Moles/Vol] 102 mmol/L Normal 98-107 [facility] Comment on above: Order Comment: SP ECIMEN IS MODERATELY LIPEMIC Performed By: #### L 100.0100, L500.2500 #### [facility] [address] [place], [address] CO2 [Moles/Vol] 25.0 mmol/L Normal 21.0-32.0 [facility] Comment on above: Order Comment: SP ECIMEN IS MODERATELY LIPEMIC Performed By: #### L 100.0100, L500.2500 #### [facility] [address] [place], [address] Creatinine [Mass/Vol] 1.33 mg/dL High 0.55-1.02 [facility] Comment on above: Order Comment: SP ECIMEN IS MODERATELY LIPEMIC Result Comment: The validity of the calculated GFR GFRAA in patients over 70 years has not been determined. Clinical correlation is essential. Performed By: #### L 100.0100, L500.2500 #### [facility] [address] [place], [address] ECRCL 32.26 ml/min [facility] Comment on above: Order Comment: SP ECIMEN IS MODERATELY LIPEMIC Performed By: #### L 100.0100, L500.2500 #### [facility] [address] [place], [address] EST GFR - AA 50 mL/min Low >60 [facility] Comment on above: Order Comment: SP ECIMEN IS MODERATELY LIPEMIC Result Comment: Afri can [place] GFR Calc Performed By: #### L 100.0100, L500.2500 #### [facility] [address] [place], [address] GAP 7 Normal 5-15 [facility] Comment on above: Order Comment: SP ECIMEN IS MODERATELY LIPEMIC Performed By: #### L 100.0100, L500.2500 #### [facility] [address] [place], [address] GFR/1.73 sq M.predicted among non-blacks MDRD (S/P/Bld) [Vol rate/Area] 41 mL/min/{1.73_m2} Low >60 [facility] Comment on above: Order Comment: SP ECIMEN IS MODERATELY LIPEMIC Result Comment: Non- GFR Calc Performed By: #### L 100.0100, L500.2500 #### [facility] [address] [place], [address] Glucose [Mass/Vol] 132 mg/dL High 74-106 [facility] Comment on above: Order Comment: SP ECIMEN IS MODERATELY LIPEMIC Result Comment: Fast ing Glucose result greater than or equal to 126 mg/dL suggests DIABETES MELLITUS per A.D.A. criteria. Performed By: #### L 100.0100, L500.2500 #### [facility] [address] [place], [address] Potassium [Moles/Vol] 4.2 mmol/L Normal 3.5-5.1 [facility] Comment on above: Order Comment: SP ECIMEN IS MODERATELY LIPEMIC Performed By: #### L 100.0100, L500.2500 #### [facility] [address] [place], [address] Sodium [Moles/Vol] 134 mmol/L Low 136-145 [facility] Comment on above: Order Comment: SP ECIMEN IS MODERATELY LIPEMIC Performed By: #### L 100.0100, L500.2500 #### [facility] [address] [place], [address] Urea nitrogen [Mass/Vol] 23 mg/dL High 7-18 [facility] Comment on above: Order Comment: SP ECIMEN IS MODERATELY LIPEMIC Performed By: #### L 100.0100, L500.2500 #### [facility] [address] [place], [address] CBC W/Diff, Automatedon 09-2 Absolute Lymph 1.74 X10 3/uL Normal 0.83-4.51 [facility] Comment on above: Performed By: #### L 100.0100, L500.2500 #### [facility] [address] [place], [address] Absolute Neut 5.2 X10 3/uL Normal 2.0-7.7 [facility] Comment on above: Performed By: #### L 100.0100, L500.2500 #### [facility] [address] [place], [address] Basophils/100 WBC (Bld) 1.3 % High 0-1 [facility] Comment on above: Performed By: #### L 100.0100, L500.2500 #### [facility] [address] [place], [address] Eosinophils/100 WBC (Bld) 2.2 % Normal 0-5 [facility] Comment on above: Performed By: #### L 100.0100, L500.2500 #### [facility] [address] [place], [address] Erythrocyte distribution width (RBC) [Ratio] 12.8 % Normal 11.6-14.6 [facility] Comment on above: Performed By: #### L 100.0100, L500.2500 #### [facility] [address] [place], [address] Hematocrit (Bld) [Volume fraction] 31.5 % Low 37-47 [facility] Comment on above: Performed By: #### L 100.0100, L500.2500 #### [facility] [address] [place], [address] Hemoglobin (Bld) [Mass/Vol] 11.0 g/dL Low 12.0-15.0 [facility] Comment on above: Performed By: #### L 100.0100, L500.2500 #### [facility] [address] [place], [address] IG% 0.500 Normal 0.0-0.9 [facility] Comment on above: Result Comment: IG% - Immature Granulocytes (promyelocytes, myelocytes and metamyelocytes) > 1% indicates that a LEFT SHIFT is Present. Performed By: #### L 100.0100, L500.2500 #### [facility] [address] [place], [address] Lymphocytes/100 WBC (Bld) 22.3 % Normal 19-41 [facility] Comment on above: Performed By: #### L 100.0100, L500.2500 #### [facility] [address] [place], [address] MCH (RBC) [Entitic mass] 32.7 pg High 27.0-32.0 [facility] Comment on above: Performed By: #### L 100.0100, L500.2500 #### [facility] [address] [place], [address] MCHC (RBC) [Mass/Vol] 34.9 g/dL Normal 32-36 [facility] Comment on above: Performed By: #### L 100.0100, L500.2500 #### [facility] [address] [place], [address] MCV (RBC) [Entitic vol] 93.8 fL Normal 81-99 [facility] Comment on above: Performed By: #### L 100.0100, L500.2500 #### [facility] [address] [place], [address] Monocytes/100 WBC (Bld) 7.3 % Normal 0-10 [facility] Comment on above: Performed By: #### L 100.0100, L500.2500 #### [facility] [address] [place], [address] Neutrophils/100 WBC (Bld) 66.4 % Normal 47-70 [facility] Comment on above: Performed By: #### L 100.0100, L500.2500 #### [facility] [address] [place], [address] Nucleated RBC (Bld) [#/Vol] 0 10*3/uL Normal 0-5 [facility] Comment on above: Performed By: #### L 100.0100, L500.2500 #### [facility] [address] [place], [address] Platelet mean volume (Bld) [Entitic vol] 9.1 fL Normal 6.2-12.0 [facility] Comment on above: Performed By: #### L 100.0100, L500.2500 #### [facility] [address] [place], [address] Platelets (Bld) [#/Vol] 319 10*3/uL Normal 150-450 [facility] Comment on above: Performed By: #### L 100.0100, L500.2500 #### [facility] [address] [place], [address] RBC (Bld) [#/Vol] 3.36 10*6/uL Low 4.2-5.4 [facility] Comment on above: Performed By: #### L 100.0100, L500.2500 #### [facility] [address] [place], [address] RDW SD 43.7 fl Normal 35.1-43.9 [facility] Comment on above: Performed By: #### L 100.0100, L500.2500 #### [facility] [address] [place], [address] WBC (Bld) [#/Vol] 7.8 10*3/uL Normal 4.4-11.0 [facility] Comment on above: Performed By: #### L 100.0100, L500.2500 #### [facility] [address] [place], [address] Emergency Department Summary on 03-31-2024 Emergency Department Summary [facility] Medical Records Department [address] [place] [address] Emergency Department Summary 03/31/24 MR#: [id number] Acct: [id number] Name: ABY TELLES Rep #: [id number] : 1950 73 From: Hossein North DO [...] helped. Patient denies any fevers or chills. [facility] Medical History Wears partial dentures Wears glasses [...] DAILY PRN PRN Anxiety 01/24/17 12/22/22 History exjwqrwesoqj-Bl-ya on-minerals 1 ea PO DAILY supplement 01/24/17 [...] mg PO DAILY 05/09/22 12/22/22 History peg 845-pbndgmdpfxaj-e lycerin 1 1 drp EACH EYE BID [...] change i (more content not included)... Normal [facility] Urinalysis, Completeon 03-31 BACTERIA 3+ /hpf Normal None Seen [facility] Comment on above: Order Comment: CLEAN CATCH Performed By: #### L 400.0001 #### [facility] [address] [place], [address] EPI,RENAL 5-10 SEEN Normal 0-5 [facility] Comment on above: Order Comment: CLEAN CATCH Performed By: #### L 400.0001 #### [facility] [address] [place], [address] EPI,SQUAMOUS 10-25 SEEN Normal 5-10 [facility] Comment on above: Order Comment: CLEAN CATCH Performed By: #### L 400.0001 #### [facility] [address] [place], [address] WBC >100 SEEN Normal 0-5 [facility] Comment on above: Order Comment: CLEAN CATCH Performed By: #### L 400.0001 #### [facility] [address] [place], [address] BILIRUBIN URINE Negative Normal Negative [facility] Comment on above: Order Comment: CLEAN CATCH Performed By: #### L 400.0001 #### [facility] [address] [place], [address] Clarity (U) Cloudy Normal Clear [facility] Comment on above: Order Comment: CLEAN CATCH Performed By: #### L 400.0001 #### [facility] [address] [place], [address] Color (U) Yellow Normal Yellow [facility] Comment on above: Order Comment: CLEAN CATCH Performed By: #### L 400.0001 #### [facility] [address] [place], [address] GLUCOSE, UR Normal Normal Normal [facility] Comment on above: Order Comment: CLEAN CATCH Performed By: #### L 400.0001 #### [facility] [address] [place], [address] KETONE UR Negative Normal Negative [facility] Comment on above: Order Comment: CLEAN CATCH Performed By: #### L 400.0001 #### [facility] [address] [place] [id number] LEUK ESTERASE 500 /ul Abnormal Negative [facility] Comment on above: Order Comment: CLEAN CATCH Performed By: #### L 400.0001 #### [facility] [address] [place] [address] Nitrite Ql (U) Negative Normal Negative [facility] Comment on above: Order Comment: CLEAN CATCH Performed By: #### L 400.0001 #### [facility] [address] [place] [id number] OCCULT BLOOD-UR 10 /ul Abnormal Negative [facility] Comment on above: Order Comment: CLEAN CATCH Performed By: #### L 400.0001 #### [facility] [address] [place] [address] pH UR 6.0 Normal 5.0 - 8.0 [facility] Comment on above: Order Comment: CLEAN CATCH Performed By: #### L 400.0001 #### [facility] [address] [place] [address] PROT DIPSTX 30 mg/dl Abnormal Negative [facility] Comment on above: Order Comment: CLEAN CATCH Performed By: #### L 400.0001 #### [facility] [address] [place], [address] SP.GR. DIPSTX 1.010 Normal 1.002-1.030 [facility] Comment on above: Order Comment: CLEAN CATCH Performed By: #### L 400.0001 #### [facility] [address] [place] [address] UROBILI Normal Normal Normal [facility] Comment on above: Order Comment: CLEAN CATCH Performed By: #### L 400.0001 #### [facility] [address] [place] [address] Mucus Ql (Urine sed) 0 SEEN Normal [facility] Comment on above: Order Comment: CLEAN CATCH Performed By: #### L 400.0001 #### [facility] [address] [place], [address] RBC 0 SEEN Normal 0-5 [facility] Comment on above: Order Comment: CLEAN CATCH Performed By: #### L 400.0001 #### [facility] [address] [place], [address] 12 Lead EKGon 03-21-2024 12 Lead EKG [facility] [address] [place] [address] 12 Lead EKG 03/21/24 1215 MR#: [id number] Acct: [id number] Name: ABY TELLES Rep #: [id number] : 1950 73 From: Ignacio Peng MD [...] ) Borderline ECG Confirmed by Ignacio Peng ([id number]), art editor CHRISTY TOVAR ([id number]) on 03/25/2024 10:48:43 AM Referred By: Confirmed By:Ignacio Peng 03/25/24 1048 Date Ignacio Peng MD CC: Dr. Jose Smith DO; Dr. Bassam Johnson MD Signed Normal [facility] Brain/Head without Contrasto n 03-21-2024 Brain/Head without Contrast [facility] Imaging Services [address] [place] [address] Brain/Head without Contrast MR#: [id number] Acct: [id number] Name: ABY TELLES Rep #: [id number] : 1950 F 73 From: Dennys Botello MD PCP: Dr. Bassam Johnson MD Status: REG ER Study: Brain/Head without Contrast Date of Exam: 03/03 03/26 Exam# [id number] Ordering Dr: Corey Smith DO [id number] STUDY: CT BRAIN WITHOUT CONTRAST REASON [...] Jose Smith DO; Dr. Bassam Johnson MD Appliance Servicer: Signed Normal [facility] CBC W/Diff, Automatedon 09- Absolute Lymph 1.46 X10 3/uL Normal 0.83-4.51 [facility] Comment on above: Performed By: #### L 100.0100, L500.4050 #### [facility] [address] [place], [address] Absolute Neut 6.1 X10 3/uL Normal 2.0-7.7 [facility] Comment on above: Performed By: #### L 100.0100, L500.4050 #### [facility] [address] [place], [address] Basophils/100 WBC (Bld) 1.0 % Normal 0-1 [facility] Comment on above: Performed By: #### L 100.0100, L500.4050 #### [facility] [address] [place], [address] Eosinophils/100 WBC (Bld) 1.4 % Normal 0-5 [facility] Comment on above: Performed By: #### L 100.0100, L500.4050 #### [facility] [address] [place], [address] Erythrocyte distribution width (RBC) [Ratio] 12.8 % Normal 11.6-14.6 [facility] Comment on above: Performed By: #### L 100.0100, L500.4050 #### [facility] [address] [place], [address] Hematocrit (Bld) [Volume fraction] 33.7 % Low 37-47 [facility] Comment on above: Performed By: #### L 100.0100, L500.4050 #### [facility] [address] [place], [address] Hemoglobin (Bld) [Mass/Vol] 11.5 g/dL Low 12.0-15.0 [facility] Comment on above: Performed By: #### L 100.0100, L500.4050 #### [facility] [address] [place], [address] IG% 0.400 Normal 0.0-0.9 [facility] Comment on above: Result Comment: IG% - Immature Granulocytes (promyelocytes, myelocytes and metamyelocytes) > 1% indicates that a LEFT SHIFT is Present. Performed By: #### L 100.0100, L500.4050 #### [facility] [address] [place], [address] Lymphocytes/100 WBC (Bld) 17.5 % Low 19-41 [facility] Comment on above: Performed By: #### L 100.0100, L500.4050 #### [facility] [address] [place], [address] MCH (RBC) [Entitic mass] 32.5 pg High 27.0-32.0 [facility] Comment on above: Performed By: #### L 100.0100, L500.4050 #### [facility] [address] [place], [address] MCHC (RBC) [Mass/Vol] 34.1 g/dL Normal 32-36 [facility] Comment on above: Performed By: #### L 100.0100, L500.4050 #### [facility] [address] [place], [address] MCV (RBC) [Entitic vol] 95.2 fL Normal 81-99 [facility] Comment on above: Performed By: #### L 100.0100, L500.4050 #### [facility] [address] [place], [address] Monocytes/100 WBC (Bld) 7.0 % Normal 0-10 [facility] Comment on above: Performed By: #### L 100.0100, L500.4050 #### [facility] [address] [place], [address] Neutrophils/100 WBC (Bld) 72.7 % High 47-70 [facility] Comment on above: Performed By: #### L 100.0100, L500.4050 #### [facility] [address] [place], [address] Nucleated RBC (Bld) [#/Vol] 0 10*3/uL Normal 0-5 [facility] Comment on above: Performed By: #### L 100.0100, L500.4050 #### [facility] [address] [place], [address] Platelet mean volume (Bld) [Entitic vol] 9.1 fL Normal 6.2-12.0 [facility] Comment on above: Performed By: #### L 100.0100, L500.4050 #### [facility] [address] [place], [address] Platelets (Bld) [#/Vol] 339 10*3/uL Normal 150-450 [facility] Comment on above: Performed By: #### L 100.0100, L500.4050 #### [facility] [address] [place], [address] RBC (Bld) [#/Vol] 3.54 10*6/uL Low 4.2-5.4 [facility] Comment on above: Performed By: #### L 100.0100, L500.4050 #### [facility] [address] [place], [address] RDW SD 44.8 fl High 35.1-43.9 [facility] Comment on above: Performed By: #### L 100.0100, L500.4050 #### [facility] [address] [place], [address] WBC (Bld) [#/Vol] 8.3 10*3/uL Normal 4.4-11.0 [facility] Comment on above: Performed By: #### L 100.0100, L500.4050 #### [facility] [address] [place], [address] Comprehensive Metabolic Prof ilon 03-21-2024 Albumin [Mass/Vol] 3.7 g/dL Normal 3.2-5.0 [facility] Comment on above: Performed By: #### L 100.0100, L500.4050 #### [facility] [address] [place], [address] Albumin/Globulin [Mass ratio] 1.0 {ratio} Normal 0.9-2.4 [facility] Comment on above: Performed By: #### L 100.0100, L500.4050 #### [facility] [address] [place], [address] ALK P 57 U/L Normal 45-117 [facility] Comment on above: Performed By: #### L 100.0100, L500.4050 #### [facility] [address] [place], [address] ALT [Catalytic activity/Vol] 33 U/L Normal 13-56 [facility] Comment on above: Performed By: #### L 100.0100, L500.4050 #### [facility] [address] [place], [address] AST [Catalytic activity/Vol] 21 U/L Normal 15-37 [facility] Comment on above: Performed By: #### L 100.0100, L500.4050 #### [facility] [address] [place], [address] Bilirubin [Mass/Vol] 0.30 mg/dL Normal 0.20-1.00 [facility] Comment on above: Result Comment: For patients on eltrombopag therapy, use of Dimension [place] TBIL is not recommended. Performed By: #### L 100.0100, L500.4050 #### [facility] [address] [place], [address] BUN/CRE 16.1 RATIO Normal 10-20 [facility] Comment on above: Performed By: #### L 100.0100, L500.4050 #### [facility] [address] [place], [address] CA,Total 9.4 mg/dL Normal 8.5-10.1 [facility] Comment on above: Performed By: #### L 100.0100, L500.4050 #### [facility] [address] [place], [address] Chloride [Moles/Vol] 102 mmol/L Normal 98-107 [facility] Comment on above: Performed By: #### L 100.0100, L500.4050 #### [facility] [address] [place], [address] CO2 [Moles/Vol] 26.0 mmol/L Normal 21.0-32.0 [facility] Comment on above: Performed By: #### L 100.0100, L500.4050 #### [facility] [address] [place], [address] Creatinine [Mass/Vol] 1.24 mg/dL High 0.55-1.02 [facility] Comment on above: Result Comment: The validity of the calculated GFR GFRAA in patients over 70 years has not been determined. Clinical correlation is essential. Performed By: #### L 100.0100, L500.4050 #### [facility] [address] [place], [address] EST GFR - AA 54 mL/min Low >60 [facility] Comment on above: Result Comment: Afri can [place] GFR Calc Performed By: #### L 100.0100, L500.4050 #### [facility] [address] [place], [address] GAP 5 Normal 5-15 [facility] Comment on above: Performed By: #### L 100.0100, L500.4050 #### [facility] [address] [place], [address] GFR/1.73 sq M.predicted among non-blacks MDRD (S/P/Bld) [Vol rate/Area] 45 mL/min/{1.73_m2} Low >60 [facility] Comment on above: Result Comment: Non- GFR Calc Performed By: #### L 100.0100, L500.4050 #### [facility] [address] [place], [address] Globulin (S) [Mass/Vol] 3.7 g/dL Normal 2.2-4.2 [facility] Comment on above: Performed By: #### L 100.0100, L500.4050 #### [facility] [address] [place], [address] Glucose [Mass/Vol] 132 mg/dL High 74-106 [facility] Comment on above: Result Comment: Fast ing Glucose result greater than or equal to 126 mg/dL suggests DIABETES MELLITUS per A.D.A. criteria. Performed By: #### L 100.0100, L500.4050 #### [facility] [address] [place], [address] Potassium [Moles/Vol] 4.8 mmol/L Normal 3.5-5.1 [facility] Comment on above: Performed By: #### L 100.0100, L500.4050 #### [facility] [address] [place], [address] Sodium [Moles/Vol] 133 mmol/L Low 136-145 [facility] Comment on above: Performed By: #### L 100.0100, L500.4050 #### [facility] [address] [place], [address] T PROT 7.4 g/dL Normal 6.4-8.2 [facility] Comment on above: Performed By: #### L 100.0100, L500.4050 #### [facility] [address] [place], [address] Urea nitrogen [Mass/Vol] 20 mg/dL High 7-18 [facility] Comment on above: Performed By: #### L 100.0100, L500.4050 #### [facility] [address] [place], [address] Emergency Department Summary on 03-21-2024 Emergency Department Summary [facility] Medical Records Department [address] [place] [address] Emergency Department Summary 03/21/24 MR#: [id number] Acct: [id number] Name: ABY TELLES Rep #: [id number] : 1950 73 From: Jose Smith DO [...] 0 Psych: Cooperative, [facility] History Wears partial dentures Wears [...] DAILY PRN PRN Anxiety 01/24/17 12/22/22 History vmumcknpdmpa-Jb-fs on-minerals 1 ea PO DAILY supplement 01/24/17 [...] mg PO DAILY 05/09/22 12/22/22 History peg 717-zavknnpasbyp-s lycerin 1 1 drp EACH EYE BID [...] repair ( (more content not included)... Normal [facility] Urinalysis, Completeon 03-21 BACTERIA Normal None Seen [facility] Comment on above: Order Comment: COLLE CTOR TO SPECIFY Result Comment: Canc elled via OM: CANCEL Performed By: #### L 400.0001 #### [facility] [address] [place], [address] BILIRUBIN URINE Normal Negative [facility] Comment on above: Order Comment: FREDDIE CTOR TO SPECIFY Result Comment: Canc elled via OM: CANCEL Performed By: #### L 400.0001 #### [facility] [address] [place], [address] Clarity (U) Normal Clear [facility] Comment on above: Order Comment: FREDDIE CTOR TO SPECIFY Result Comment: Canc elled via OM: CANCEL Performed By: #### L 400.0001 #### [facility] [address] [place], [address] Color (U) Normal Yellow [facility] Comment on above: Order Comment: FREDDIE CTOR TO SPECIFY Result Comment: Canc elled via OM: CANCEL Performed By: #### L 400.0001 #### [facility] [address] [place], [address] EPI,SQUAMOUS Normal 5-10 [facility] Comment on above: Order Comment: FREDDIE CTOR TO SPECIFY Result Comment: Canc elled via OM: CANCEL Performed By: #### L 400.0001 #### [facility] [address] [place], [address] GLUCOSE, UR Normal Normal [facility] Comment on above: Order Comment: FREDDIE CTOR TO SPECIFY Result Comment: Canc elled via OM: CANCEL Performed By: #### L 400.0001 #### [facility] [address] [place], [address] KETONE UR Normal Negative [facility] Comment on above: Order Comment: FREDDIE CTOR TO SPECIFY Result Comment: Canc elled via OM: CANCEL Performed By: #### L 400.0001 #### [facility] [address] [place], [address] LEUK ESTERASE Normal Negative [facility] Comment on above: Order Comment: FREDDIE CTOR TO SPECIFY Result Comment: Canc elled via OM: CANCEL Performed By: #### L 400.0001 #### [facility] [address] [place], [address] Mucus Ql (Urine sed) Normal [facility] Comment on above: Order Comment: FREDDIE CTOR TO SPECIFY Result Comment: Canc elled via OM: CANCEL Performed By: #### L 400.0001 #### [facility] [address] [place], [address] Nitrite Ql (U) Normal Negative [facility] Comment on above: Order Comment: FREDDIE CTOR TO SPECIFY Result Comment: Canc elled via OM: CANCEL Performed By: #### L 400.0001 #### [facility] [address] [place], [address] OCCULT BLOOD-UR Normal Negative [facility] Comment on above: Order Comment: FREDDIE CTOR TO SPECIFY Result Comment: Canc elled via OM: CANCEL Performed By: #### L 400.0001 #### [facility] [address] [place], [address] pH UR Normal 5.0 - 8.0 [facility] Comment on above: Order Comment: FREDDIE CTOR TO SPECIFY Result Comment: Canc elled via OM: CANCEL Performed By: #### L 400.0001 #### [facility] [address] [place], [address] PROT DIPSTX Normal Negative [facility] Comment on above: Order Comment: FREDDIE CTOR TO SPECIFY Result Comment: Canc elled via OM: CANCEL Performed By: #### L 400.0001 #### [facility] [address] [place], [address] RBC Normal 0-5 [facility] Comment on above: Order Comment: FREDDIE CTOR TO SPECIFY Result Comment: Canc elled via OM: CANCEL Performed By: #### L 400.0001 #### [facility] [address] [place], [address] SP.GR. DIPSTX Normal 1.002-1.030 [facility] Comment on above: Order Comment: COLLE CTOR TO SPECIFY Result Comment: Canc elled via OM: CANCEL Performed By: #### L 400.0001 #### [facility] [address] [place], [address] UR Preservative Normal [facility] Comment on above: Order Comment: COLLE CTOR TO SPECIFY Result Comment: Canc elled via OM: CANCEL Performed By: #### L 400.0001 #### [facility] [address] [place], [address] UROBILI Normal Normal [facility] Comment on above: Order Comment: COLLE CTOR TO SPECIFY Result Comment: Canc elled via OM: CANCEL Performed By: #### L 400.0001 #### [facility] [address] [place], [address] WBC Normal 0-5 [facility] Comment on above: Order Comment: COLLE CTOR TO SPECIFY Result Comment: Canc elled via OM: CANCEL Performed By: #### L 400.0001 #### [facility] [address] [place], [address] Basophil percentageOrdered B y: Bassam Johnson on 05-17-2023 Sodium [Moles/Vol] 136 mmol/L 136-145 [facility] Basophil percentageOrdered B y: Rachel Velez on 04-25-2023 Chloride [Moles/Vol] 104 mmol/L 98-107 [facility] Glucose [Mass/Vol] 105 mg/dL 74-106 [facility] Comment on above: Fasting Glucose resu lt from 100 to 125 mg/dL suggests IMPAIRED HOMEOSTASIS per A.D.A. criteria. Potassium [Moles/Vol] 4.2 mmol/L 3.5-5.1 [facility] Sodium [Moles/Vol] 135 mmol/L 136-145 [facility] - Chemistry and C hemistry - challengeOrdered By: Rachel Velez on 04-25-2023 CO2 [Moles/Vol] 25.0 mmol/L 21.0-32.0 [facility] Urea nitrogen/Creatinine [Mass ratio] 14.4 mg/mg 10- [facility] No Panel InformationOrdered By: Rachel Velez on 04-25-2023 Estimated Creatinine Clearance Calc 30.50 ml/min [facility] Estimated GFR (MDRD) Amer 58 mL/min >60 [facility] Comment on above: GFR Calc Estimated GFR (MDRD) Non-Af Amer 48 mL/min >60 [facility] Comment on above: Non- GFR Calc Serum or plasma calcium ata urement (mass/volume)Ordered By: Rachel Velez on 04-25-2023 Calcium [Mass/Vol] 8.5 mg/dL 8.5-10.1 [facility] Serum or plasma creatinine m easurement (mass/volume)Ordered By: Rachel Velez on 04-25-2023 Creatinine [Mass/Vol] 1.18 mg/dL 0.55-1.02 [facility] Comment on above: The validity of the calculated GFR & GFRAA in patients over 70 years has not been determined. Clinical correlation is essential. Serum or plasma urea nitroge n measurement (mass/volume)Ordered By: Rachel Velez on 04-25-2023 Urea nitrogen [Mass/Vol] 17 mg/dL 7-18 [facility] Thin prep Papanicolaou smear with manual screeningOrdered By: Rachel Velez on 04-25-2023 Thin prep Papanicolaou smear with manual screening 6 5-15 [facility] Basophil percentageOrdered B y: Debora Toussaint on 04-24-2023 Chloride [Moles/Vol] 105 mmol/L 98-107 [facility] Glucose [Mass/Vol] 167 mg/dL 74-106 [facility] Comment on above: Fasting Glucose resu lt greater than or equal to 126 mg/dL suggests DIABETES MELLITUS per A.D.A. criteria. Potassium [Moles/Vol] 4.1 mmol/L 3.5-5.1 [facility] Sodium [Moles/Vol] 131 mmol/L 136-145 [facility] WBC (Bld) [#/Vol] 6.1 10*3/uL 4.4-11.0 [facility] Blood erythrocytes count (nu mber/volume)Ordered By: Debora Toussaint on 04-24-2023 RBC (Bld) [#/Vol] 3.43 10*6/uL 4.2-5.4 [facility] Blood hemoglobin measurement (mass/volume)Ordered By: Debora Toussaint on 04-24-2023 Hemoglobin (Bld) [Mass/Vol] 10.9 g/dL 12.0-15.0 [facility] Blood platelet mean volumeOr dered By: Debora Toussaint on 04-24-2023 Platelet mean volume (Bld) [Entitic vol] 9.4 fL 6.2-12.0 [facility] Determination of erythrocyte mean corpuscular volume (MCV)Ordered By: Debora Toussaint on 04-24-2023 MCV (RBC) [Entitic vol] 95.9 fL 81-99 [facility] Hematocrit Auto (Bld) [Volum e fraction]Ordered By: Debora Toussaint on 04-24-2023 Hematocrit (Bld) [Volume fraction] 32.9 % 37-47 [facility] - Chemistry and C hemistry - challengeOrdered By: Debora Toussaint on 04-24-2023 CO2 [Moles/Vol] 24.0 mmol/L 21.0-32.0 [facility] Urea nitrogen/Creatinine [Mass ratio] 14.8 mg/mg 10-20 [facility] - Hematology and Cell countsOrdered By: Debora Toussaint on 04-24-2023 Erythrocyte distribution width (RBC) [Entitic vol] 44.6 fL 35.1-43.9 [facility] Erythrocyte distribution width (RBC) [Ratio] 12.8 % 11.6-14.6 [facility] MCH (RBC) [Entitic mass] 31.8 pg 27.0-32.0 [facility] MCHC Auto (RBC) [Mass/Vol]Or dered By: Debora Toussaint on 04-24-2023 MCHC (RBC) [Mass/Vol] 33.1 g/dL 32-36 [facility] No Panel InformationOrdered By: Debora Toussaint on 04-24-2023 Estimated GFR (MDRD) Amer 55 mL/min >60 [facility] Comment on above: GFR Calc Estimated GFR (MDRD) Non-Af Amer 46 mL/min >60 [facility] Comment on above: Non- GFR Calc Platelets bldOrdered By: Graeme Toussaint on 04-24-2023 Platelets (Bld) [#/Vol] 349 10*3/uL 150-450 [facility] Serum or plasma calcium ata urement (mass/volume)Ordered By: Debora Toussaint on 04-24-2023 Calcium [Mass/Vol] 8.7 mg/dL 8.5-10.1 [facility] Serum or plasma creatinine m easurement (mass/volume)Ordered By: Debora Toussaint on 04-24-2023 Creatinine [Mass/Vol] 1.22 mg/dL 0.55-1.02 [facility] Comment on above: The validity of the calculated GFR & GFRAA in patients over 70 years has not been determined. Clinical correlation is essential. Serum or plasma urea nitroge n measurement (mass/volume)Ordered By: Debora Toussaint on 04-24-2023 Urea nitrogen [Mass/Vol] 18 mg/dL 7-18 [facility] Thin prep Papanicolaou smear with manual screeningOrdered By: Debora Toussaint on 04-24-2023 Thin prep Papanicolaou smear with manual screening 2 5-15 [facility] Bilirubin Test strip Ql (U)O rdered By: Bassam Johnson on 01-06-2023 Bilirubin Ql (U) Negative Negative [facility] Culture, urineOrdered By: Belen Johnson on 01-06-2023 Bacteria identified Cx Nom (U) Escherichia coli [facility] Ketones Test strip Ql (U)Ord ered By: Bassam Johnson on 01-06-2023 Ketones Ql (U) Negative Negative [facility] Nitrite Test strip Ql (U)Ord ered By: Bassam Johnson on 01-06-2023 Nitrite Ql (U) Negative Negative [facility] Protein Test strip Ql (U)Ord ered By: Bassam Johnson on 01-06-2023 Protein Ql (U) 15 mg/dl Negative [facility] Urine blood detectionOrdered By: Bassam Johnson on 01-06-2023 RBC Ql (U) 10 /ul Negative [facility] Urine clarityOrdered By: Sinai Johnson on 01-06-2023 Clarity (U) Sl. Cloudy Clear [facility] Urine color determinationOrd ered By: Bassam Johnson on 01-06-2023 Color (U) Yellow Yellow [facility] Urine glucose detectionOrder ed By: Bassam Johnson on 01-06-2023 Glucose Ql (U) Normal mg/dl Normal [facility] Urine leukocyte esterase det ection by dipstickOrdered By: Bassam Johnson on 01-06-2023 Leukocyte esterase Test strip Ql (U) 500 /ul Negative [facility] Urine pHOrdered By: Bassam Lee on 01-06-2023 pH (U) 6.0 [pH] 5.0 - 8.0 [facility] Urine specific gravity measu rementOrdered By: Bassam Johnson on 01-06-2023 Specific gravity (U) [Rel density] 1.015 1.002-1.030 [facility] Urobilinogen Auto test strip Ql (U)Ordered By: Bassam Johnson on 01-06-2023 Urobilinogen Ql (U) Normal mg/dl Normal [facility] - Chemistry and C hemistry - challengeon 12-28-2021 Bilirubin Ql (U) Negative [facility] Work Phone: Glucose Ql (U) Negative [facility] Work Phone: Ketones Ql (U) Small (15+) [facility] Work Phone: pH (U) 5.0 [pH] [facility] Work Phone: Specific gravity (U) [Rel density] 1.025 [facility] Work Phone: Urobilinogen (U) [Mass/Vol] 0.7866527 mg/dL [facility] Work Phone: Laboratory - Hematology and Cell countson 12-28-2021 Hemoglobin Ql (U) Negative [facility] Work Phone: Laboratory - Specimen inform ationon 12-28-2021 Clarity (U) Cloudy [facility] Work Phone: Color (U) Yellow [facility] Work Phone: Laboratory - Urinalysison Nitrite Ql (U) Negative [facility] Work Phone: Protein Ql (U) 1+ [facility] Work Phone: No Panel Informationon 12-28 Urine Leukocytes Positive [facility] Work Phone: Absolute lymphocyte counton 11-24-2021 Lymphocytes Auto (Unsp spec) [#/Vol] 1.82 10*3/uL 0.83-4.51 [facility] Work Phone: Basophil percentageon 2021 Basophils/100 WBC (Bld) 0.7 % 0-1 [facility] Work Phone: Bilirubin [Mass/Vol] 0.40 mg/dL 0.20-1.00 [facility] Work Phone: Comment on above: For patients on eltr ombopag therapy, use of Dimension [place] TBIL is not recommended. Chloride [Moles/Vol] 106 mmol/L 98-107 [facility] Work Phone: Eosinophils/100 WBC (Bld) 2.6 % 0-5 [facility] Work Phone: Glucose [Mass/Vol] 90 mg/dL 74-106 [facility] Work Phone: Neutrophils (Bld) [#/Vol] 4.1 10*3/uL 2.0-7.7 [facility] Work Phone: Neutrophils/100 WBC (Bld) 59.9 % 47-70 [facility] Work Phone: Potassium [Moles/Vol] 4.5 mmol/L 3.5-5.1 [facility] Work Phone: Protein [Mass/Vol] 6.7 g/dL 6.4-8.2 [facility] Work Phone: Sodium [Moles/Vol] 136 mmol/L 136-145 [facility] Work Phone: WBC (Bld) [#/Vol] 6.9 10*3/uL 4.4-11.0 [facility] Work Phone: Blood erythrocytes count (nu mber/volume)on 11-24-2021 RBC (Bld) [#/Vol] 3.38 10*6/uL 4.2-5.[address] [facility] Work Phone: Blood hemoglobin measurement (mass/volume)on 11-24-2021 Hemoglobin (Bld) [Mass/Vol] 10.8 g/dL 12.0-15.0 [facility] Work Phone: Blood lymphocytes/100 leukoc yteson 11-24-2021 Lymphocytes/100 WBC (Bld) 26.4 % 19-41 [facility] Work Phone: Blood monocytes/100 leukocyt eson 11-24-2021 Monocytes/100 WBC (Bld) 10.3 % 0-10 [facility] Work Phone: Blood platelet mean volumeon 11-24-2021 Platelet mean volume (Bld) [Entitic vol] 9.1 fL 6.2-12.0 [facility] Work Phone: Determination of erythrocyte mean corpuscular volume (MCV)on 11-24-2021 MCV (RBC) [Entitic vol] 94.7 fL 81-99 [facility] Work Phone: Hematocrit Auto (Bld) [Volum e fraction]on 11-24-2021 Hematocrit (Bld) [Volume fraction] 32.0 % 37-47 [facility] Work Phone: Laboratory - Chemistry and C hemistry - challengeon 11-24-2021 ALP [Catalytic activity/Vol] 51 U/L 45-117 [facility] Work Phone: ALT [Catalytic activity/Vol] 22 U/L 13-56 [facility] Work Phone: CO2 [Moles/Vol] 26.0 mmol/L 21.0-32.0 [facility] Work Phone: Globulin (S) [Mass/Vol] 3.4 g/dL 2.2-4.2 [facility] Work Phone: Urea nitrogen/Creatinine [Mass ratio] 17.7 mg/mg 10-20 [facility] Work Phone: Laboratory - Hematology and Cell countson 11-24-2021 Erythrocyte distribution width (RBC) [Entitic vol] 43.9 fL 35.1-43.9 [facility] Work Phone: Erythrocyte distribution width (RBC) [Ratio] 12.8 % 11.6-14.6 [facility] Work Phone: Immature granulocytes/100 WBC (Bld) 0.100 % 0.0-0.9 [facility] Work Phone: Comment on above: IG% - Immature Granu locytes (promyelocytes, myelocytes and metamyelocytes) > 1% indicates that a LEFT SHIFT is Present. MCH (RBC) [Entitic mass] 32.0 pg 27.0-32.0 [facility] Work Phone: Nucleated RBC/100 WBC (Bld) [Ratio] 0 % 0-5 [facility] Work Phone: MCHC Auto (RBC) [Mass/Vol]on 11-24-2021 MCHC (RBC) [Mass/Vol] 33.8 g/dL 32-36 [facility] Work Phone: No Panel Informationon 11-24 Estimated Creatinine Clearance Calc 33.96 ml/min [facility] Work Phone: Estimated GFR (MDRD) Amer 61 mL/min >60 [facility] Work Phone: Comment on above: GFR Calc Estimated GFR (MDRD) Non-Af Amer 50 mL/min >60 [facility] Work Phone: Comment on above: Non- GFR Calc Platelets bldon 11-24-2021 Platelets (Bld) [#/Vol] 299 10*3/uL 150-450 [facility] Work Phone: Serum or plasma albumin ata urement (mass/volume)on 11-24-2021 Albumin [Mass/Vol] 3.3 g/dL 3.2-5.0 [facility] Work Phone: Serum or plasma albumin/glob ulin mass ratioon 11-24-2021 Albumin/Globulin [Mass ratio] 1.0 {ratio} 0.9-2.4 [facility] Work Phone: Serum or plasma calcium ata urement (mass/volume)on 11-24-2021 Calcium [Mass/Vol] 8.5 mg/dL 8.5-10.1 [facility] Work Phone: Serum or plasma creatinine m easurement (mass/volume)on 11-24-2021 Creatinine [Mass/Vol] 1.13 mg/dL 0.55-1.02 [facility] Work Phone: Comment on above: The validity of the calculated GFR & GFRAA in patients over 70 years has not been determined. Clinical correlation is essential. Serum or plasma urea nitroge n measurement (mass/volume)on 11-24-2021 Urea nitrogen [Mass/Vol] 20 mg/dL 7-18 [facility] Work Phone: Thin prep Papanicolaou smear with manual screeningon 11-24-2021 Thin prep Papanicolaou smear with manual screening 22 U/L 15-37 [facility] Work Phone: Thin prep Papanicolaou smear with manual screening 4 5-15 [facility] Work Phone: Absolute lymphocyte counton 11-22-2021 Lymphocytes Auto (Unsp spec) [#/Vol] 2.36 10*3/uL 0.83-4.51 [facility] Work Phone: Basophil percentageon 2021 Basophils/100 WBC (Bld) 0.9 % 0-1 [facility] Work Phone: Bilirubin [Mass/Vol] 0.40 mg/dL 0.20-1.00 [facility] Work Phone: Comment on above: For patients on eltr ombopag therapy, use of Dimension [place] TBIL is not recommended. Chloride [Moles/Vol] 101 mmol/L 98-107 [facility] Work Phone: Eosinophils/100 WBC (Bld) 2.2 % 0-5 [facility] Work Phone: Glucose [Mass/Vol] 112 mg/dL 74-106 [facility] Work Phone: Comment on above: Fasting Glucose resu lt from 100 to 125 mg/dL suggests IMPAIRED HOMEOSTASIS per A.D.A. criteria. Neutrophils (Bld) [#/Vol] 6.9 10*3/uL 2.0-7.7 [facility] Work Phone: Neutrophils/100 WBC (Bld) 66.1 % 47-70 [facility] Work Phone: Potassium [Moles/Vol] 4.2 mmol/L 3.5-5.1 [facility] Work Phone: Protein [Mass/Vol] 7.4 g/dL 6.4-8.2 [facility] Work Phone: Sodium [Moles/Vol] 134 mmol/L 136-145 [facility] Work Phone: WBC (Bld) [#/Vol] 10.4 10*3/uL 4.4-11.0 [facility] Work Phone: Blood erythrocytes count (nu mber/volume)on 11-22-2021 RBC (Bld) [#/Vol] 3.63 10*6/uL 4.2-5.4 [facility] Work Phone: Blood hemoglobin measurement (mass/volume)on 11-22-2021 Hemoglobin (Bld) [Mass/Vol] 11.6 g/dL 12.0-15.0 [facility] Work Phone: Blood lymphocytes/100 leukoc yteson 11-22-2021 Lymphocytes/100 WBC (Bld) 22.8 % 19-41 [facility] Work Phone: Blood monocytes/100 leukocyt eson 11-22-2021 Monocytes/100 WBC (Bld) 7.1 % 0-10 [facility] Work Phone: Blood platelet mean volumeon 11-22-2021 Platelet mean volume (Bld) [Entitic vol] 9.3 fL 6.2-12.0 [facility] Work Phone: Determination of erythrocyte mean corpuscular volume (MCV)on 11-22-2021 MCV (RBC) [Entitic vol] 93.7 fL 81-99 [facility] Work Phone: Direct bilirubinon Bilirubin.direct [Mass/Vol] 0.11 mg/dL 0.00-0.30 [facility] Work Phone: Hematocrit Auto (Bld) [Volum e fraction]on 11-22-2021 Hematocrit (Bld) [Volume fraction] 34.0 % 37-47 [facility] Work Phone: Laboratory - Chemistry and C hemistry - challengeon 11-22-2021 ALP [Catalytic activity/Vol] 62 U/L 45-117 [facility] Work Phone: ALT [Catalytic activity/Vol] 27 U/L 13-56 [facility] Work Phone: CO2 [Moles/Vol] 26.0 mmol/L 21.0-32.0 [facility] Work Phone: Globulin (S) [Mass/Vol] 3.4 g/dL 2.2-4.2 [facility] Work Phone: Lipase [Catalytic activity/Vol] 291 U/L 73-393 [facility] Work Phone: Urea nitrogen/Creatinine [Mass ratio] 16.3 mg/mg 10-20 [facility] Work Phone: Laboratory - Hematology and Cell countson 11-22-2021 Erythrocyte distribution width (RBC) [Entitic vol] 43.0 fL 35.1-43.9 [facility] Work Phone: Erythrocyte distribution width (RBC) [Ratio] 12.4 % 11.6-14.6 [facility] Work Phone: Immature granulocytes/100 WBC (Bld) 0.900 % 0.0-0.9 [facility] Work Phone: Comment on above: IG% - Immature Granu locytes (promyelocytes, myelocytes and metamyelocytes) > 1% indicates that a LEFT SHIFT is Present. MCH (RBC) [Entitic mass] 32.0 pg 27.0-32.0 [facility] Work Phone: Nucleated RBC/100 WBC (Bld) [Ratio] 0 % 0-5 [facility] Work Phone: MCHC Auto (RBC) [Mass/Vol]on 11-22-2021 MCHC (RBC) [Mass/Vol] 34.1 g/dL 32-36 [facility] Work Phone: No Panel Informationon 11-22 Estimated Creatinine Clearance Calc 27.21 ml/min [facility] Work Phone: Estimated GFR (MDRD) Amer 47 mL/min >60 [facility] Work Phone: Comment on above: GFR Calc Estimated GFR (MDRD) Non-Af Amer 39 mL/min >60 [facility] Work Phone: Comment on above: Non- GFR Calc Troponin I High Sensitivity 18 pg/mL 3.0-54.0 [facility] Work Phone: Comment on above: Please Note: New Anne t Units and Gender Specific Reference Ranges. For more information see Policy Stat Procedure [place] High Sensitivity Troponin (TNIH) and attachments. Platelets bldon 11-22-2021 Platelets (Bld) [#/Vol] 360 10*3/uL 150-450 [facility] Work Phone: Serum or plasma albumin ata urement (mass/volume)on 11-22-2021 Albumin [Mass/Vol] 4.0 g/dL 3.2-5.0 [facility] Work Phone: Serum or plasma calcium ata urement (mass/volume)on 11-22-2021 Calcium [Mass/Vol] 9.2 mg/dL 8.5-10.1 [facility] Work Phone: Serum or plasma creatinine m easurement (mass/volume)on 11-22-2021 Creatinine [Mass/Vol] 1.41 mg/dL 0.55-1.02 [facility] Work Phone: Comment on above: The validity of the calculated GFR & GFRAA in patients over 70 years has not been determined. Clinical correlation is essential. Serum or plasma urea nitroge n measurement (mass/volume)on 11-22-2021 Urea nitrogen [Mass/Vol] 23 mg/dL 7-18 [facility] Work Phone: Thin prep Papanicolaou smear with manual screeningon 11-22-2021 Thin prep Papanicolaou smear with manual screening 20 U/L 15-37 [facility] Work Phone: Thin prep Papanicolaou smear with manual screening 7 5-15 [facility] Work Phone: Culture, urineon 08-12-2021 Bacteria identified Cx Nom (U) Escherichia coli [facility] Work Phone: Gram stain for investigation of transfusion reactionon 08-12-2021 Microscopic observation Gram stain Nom (Unsp spec) [facility] Work Phone: Laboratory - Chemistry and C hemistry - challengeon 08-12-2021 Bilirubin Ql (U) Negative [facility] Work Phone: Glucose Ql (U) Negative [facility] Work Phone: Ketones Ql (U) Negative [facility] Work Phone: pH (U) 8.5 [pH] [facility] Work Phone: Specific gravity (U) [Rel density] 1.005 [facility] Work Phone: Urobilinogen (U) [Mass/Vol] Negative [facility] Work Phone: Laboratory - Hematology and Cell countson 08-12-2021 Hemoglobin Ql (U) Negative [facility] Work Phone: Laboratory - Specimen inform ationon 08-12-2021 Clarity (U) Clear [facility] Work Phone: Color (U) YELLOW [facility] Work Phone: Laboratory - Urinalysison Nitrite Ql (U) Negative [facility] Work Phone: Protein Ql (U) Negative [facility] Work Phone: No Panel Informationon 08-12 Urine Leukocytes Positive [facility] Work Phone: Urine Non-Hemolyzed Blood Negative [facility] Work Phone: Thin prep Papanicolaou smear with manual screeningon 08-12-2021 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 [facility] Work Phone: Office Visiton 05-04-2017 Documentation of current medications (procedure) Done Invalid Interpretation Code [facility] Work Phone: Tobacco use [facility] Never smoker Invalid Interpretation Code [facility] Work Phone: Office Visiton 04-04-2017 Documentation of current medications (procedure) Done Invalid Interpretation Code [facility] Work Phone: Protein mass conc Done Invalid Interpretation Code [facility] Work Phone: Tobacco smoking status NHIS Never smoker Invalid Interpretation Code [facility] Work Phone: Tobacco use CPHS Never smoker Invalid Interpretation Code [facility] Work Phone: Office Visiton 03-07-2017 Documentation of current medications (procedure) Done Invalid Interpretation Code [facility] Work Phone: Tobacco use [facility]PH[facility] Never smoker Invalid Interpretation Code [facility] Work Phone: Office Visiton 02-07-2017 Documentation of current medications (procedure) Done Invalid Interpretation Code [facility] Work Phone: Office Visiton 01-17-2017 Documentation of current medications (procedure) Done Invalid Interpretation Code [facility] Work Phone: Protein mass conc Done [facility] Work Phone: Tobacco smoking status NHIS Never smoker [facility] Work Phone: Tobacco use [facility] Never smoker Invalid Interpretation Code [facility] Work Phone: Office Visiton 11-08-2016 Documentation of current medications (procedure) Done Invalid Interpretation Code [facility] Work Phone: Tobacco smoking status NHIS Never smoker [facility] Work Phone: Tobacco use [facility] Never smoker Invalid Interpretation Code [facility] Work Phone: Culture, urine Bacteria identified Cx Nom (U) Presumptive E. coli [facility] Work Phone: Vital Signs Date Time Vital Sign Value Performing Clinician Facility 11-18-2024 14:29-0400 Diastolic blood pressure 76 mm[Hg] Dr. Bassam Johnson DO Work Phone: [facility] 11-18-2024 14:29-0400 Systolic blood pressure 145 mm[Hg] Dr. Bassam Johnson DO Work Phone: [facility] 11-18-2024 14:13-0400 Body height 154.[address] Bassam Johnson DO Work Phone: [facility] 11-18-2024 14:13-0400 Body mass index (BMI) [Ratio] 28 kg/m2 Dr. Bassam Johnson DO Work Phone: 0(048)901-551042 [place] [address] 11-18-2024 14:13-0400 Body weight 67.[address] Bassam Johnson DO Work Phone: 1(461)112-876342 [place] [address] 05-29-2024 08:45-0500 Body temperature 98.3 [degF] Dr. Bassam Johnson DO Work Phone: 3(911)797-624142 [place] [address] 05-29-2024 08:45-0500 Diastolic blood pressure 47 mm[Hg] Dr. Bassam Johnson DO Work Phone: 9(224)023-705442 [place] [address] 05-29-2024 08:45-0500 Heart rate 62 /min Dr. Bassam Johnson DO Work Phone: 5(133)477-953342 [place] [address] 05-29-2024 08:45-0500 Respiratory rate 16 /min Dr. Bassam Johnson DO Work Phone: 0(332)615-012842 [place] [address] 05-29-2024 08:45-0500 SaO2% (BldA) [Mass fraction] 95 % Dr. Bassam Johnson DO Work Phone: 6(227)763-518842 [place] [address] 05-29-2024 08:45-0500 Systolic blood pressure 95 mm[Hg] Dr. Bassam Johnson DO Work Phone: 3(855)886-403142 [place] [address] 05-29-2024 06:39-0500 Body height 154.[address] Bassam Johnson DO Work Phone: 5(090)223-341442 [place] [address] 05-29-2024 06:39-0500 Body mass index (BMI) [Ratio] 26.6 kg/m2 Dr. Bassam Johnson DO Work Phone: 9(575)449-043142 [place] [address] 05-29-2024 06:39-0500 Body weight [address] Bassam Johnson DO Work Phone: 3(220)504-865542 [place] [address] 10-20-2023 14:53-0400 Body height 152.[address] Bassam Johnson Work Phone: 9(607)116-405442 [place] [address] 10-20-2023 14:41-0400 Body mass index (BMI) [Ratio] 28.3 kg/m2 Dr. Bassam Johnson Work Phone: 5(603)658-842642 [place] [address] 10-20-2023 14:41-0400 Body weight 65.[address] Bassam Johnson Work Phone: 5(256)992-644042 [place] [address] 10-20-2023 14:41-0400 Diastolic blood pressure 69 mm[Hg] Dr. Bassam Johnson Work Phone: 4(300)022-401242 [place] [address] 10-20-2023 14:41-0400 Systolic blood pressure 128 mm[Hg] Dr. Bassam Johnson Work Phone: 5(463)423-691042 [place] [address] 04-25-2023 18:01-0400 Diastolic blood pressure 68 mm[Hg] Dr. Bassam Johnson Work Phone: 7(686)999-508842 [place] [address] 04-25-2023 18:01-0400 Heart rate 58 /min Dr. Bassam Johnson Work Phone: 1(061)910-134342 [place] [address] 04-25-2023 18:01-0400 Respiratory rate 16 /min Dr. Bassam Johnson Work Phone: 9(410)148-421942 [place] [address] 04-25-2023 18:01-0400 SaO2% (BldA) [Mass fraction] 100 % Dr. Bassam Johnson Work Phone: 1(599)974-675642 [place] [address] 04-25-2023 18:01-0400 Systolic blood pressure 146 mm[Hg] Dr. Bassam Johnson Work Phone: 2(275)147-721342 [place] [address] 04-25-2023 16:06-0400 Body height 152.[address] Bassam Johnson Work Phone: 1(402)608-352342 [place] [address] 04-25-2023 16:06-0400 Body mass index (BMI) [Ratio] 26.7 kg/m2 Dr. Bassam Johnson Work Phone: 8(635)430-866042 [place] [address] 04-25-2023 16:06-0400 Body temperature 98 [degF] Dr. Bassam Johnson Work Phone: 4(348)879-621242 [place] [address] 04-25-2023 16:06-0400 Body weight 62.[address] Bassam Johnson Work Phone: 2(331)316-219242 [place] [address] 12-22-2022 10:30-0400 Body temperature 96.9 [degF] Dr. Bassam Johnson Work Phone: 6(433)942-036242 [place] [address] 12-22-2022 10:30-0400 Diastolic blood pressure 57 mm[Hg] Dr. Bassam Johnson Work Phone: 9(440)492-609442 [place] [address] 12-22-2022 10:30-0400 Heart rate 75 /min Dr. Bassam Johnson Work Phone: 8(778)995-096942 [place] [address] 12-22-2022 10:30-0400 Respiratory rate 17 /min Dr. Bassam Johnson Work Phone: 8(213)528-258442 [place] [address] 12-22-2022 10:30-0400 SaO2% (BldA) [Mass fraction] 97 % Dr. Bassam Johnson Work Phone: 3(215)183-913442 [place] [address] 12-22-2022 10:30-0400 Systolic blood pressure 130 mm[Hg] Dr. Bassam Johnson Work Phone: 0(536)609-023342 [place] [address] 12-22-2022 06:25-0400 Body height 152.[address] Bassam Johnson Work Phone: 0(936)919-474342 [place] [address] 12-22-2022 06:25-0400 Body mass index (BMI) [Ratio] 26.3 kg/m2 Dr. Bassam Johnson Work Phone: 2(221)400-026642 [place] [address] 12-22-2022 06:25-0400 Body weight 61.[address] Bassam Johnson Work Phone: 6(618)312-846842 [place] [address] 11-21-2022 13:20-0400 Body mass index (BMI) [Ratio] 28.3 kg/m2 Dr. Bassam Johnson Work Phone: 5(559)545-558742 [place] [address] 11-21-2022 13:20-0400 Body weight 65.[address] Bassam Johnson Work Phone: 7(168)167-262295 [place] [address] 11-21-2022 13:20-0400 Diastolic blood pressure 76 mm[Hg] Dr. Bassam Johnson Work Phone: 6(791)565-299242 [place] [address] 11-21-2022 13:20-0400 Respiratory rate 18 /min Dr. Bassam Johnson Work Phone: 3(316)893-164114 [address] 11-21-2022 13:20-0400 Systolic blood pressure 146 mm[Hg] Dr. Bassam Johnson Work Phone: 8(611)427-147614 [address] 11-16-2022 21:28-0400 Respiratory rate 18 /min Dr. Bassam Johnson Work Phone: 7(248)895-543342 [place] [address] 11-16-2022 19:03-0400 Body mass index (BMI) [Ratio] 28.4 kg/m2 Dr. Bassam Johnson Work Phone: 0(869)532-307742 [place] [address] 11-16-2022 19:03-0400 Body temperature 97.5 [degF] Dr. Bassam Johnson Work Phone: 2(737)595-055042 [place] [address] 11-16-2022 19:03-0400 Body weight 66.[address] Bassam Johnson Work Phone: 1(775)609-554642 [place] [address] 11-16-2022 19:03-0400 Diastolic blood pressure 78 mm[Hg] Dr. Bassam Johnson Work Phone: 9(302)521-694542 [place] [address] 11-16-2022 19:03-0400 Heart rate 70 /min Dr. Bassam Johnson Work Phone: 5(155)564-922742 [place] [address] 11-16-2022 19:03-0400 SaO2% (BldA) [Mass fraction] 98 % Dr. Bassam Johnson Work Phone: 0(109)005-002714 [address] 11-16-2022 19:03-0400 Systolic blood pressure 156 mm[Hg] Dr. Bassam Johnson Work Phone: 1(195)518-117014 [address] 09-22-2022 10:34-0400 Body height 152.[address] Bassam Johnson Work Phone: 3(750)456-621342 [place] [address] 09-22-2022 10:34-0400 Body mass index (BMI) [Ratio] 27.3 kg/m2 Dr. Bassam Johnson Work Phone: 0(643)097-994842 [place] [address] 09-22-2022 10:34-0400 Body temperature 97.5 [degF] Dr. Bassam Johnson Work Phone: 1(033)985-447642 [place] [address] 09-22-2022 10:34-0400 Body weight 63.[address] Bassam Johnson Work Phone: 7(771)512-879342 [place] [address] 09-22-2022 10:34-0400 Diastolic blood pressure 92 mm[Hg] Dr. Bassam Johnson Work Phone: 9(146)120-096642 [place] [address] 09-22-2022 10:34-0400 Heart rate 67 /min Dr. Bassam Johnson Work Phone: 6(713)953-051042 [place] [address] 09-22-2022 10:34-0400 Respiratory rate 16 /min Dr. Bassam Johnson Work Phone: 9(643)649-194942 [place] [address] 09-22-2022 10:34-0400 SaO2% (BldA) [Mass fraction] 97 % Dr. Bassam Johnson Work Phone: 8(216)715-930342 [place] [address] 09-22-2022 10:34-0400 Systolic blood pressure 133 mm[Hg] Dr. Bassam Johnson Work Phone: 5(131)950-616714 [address] 09-15-2022 13:11-0400 Body height 154.[address] Bassam Johnson Work Phone: 5(083)675-228742 [place] [address] 09-15-2022 13:11-0400 Body mass index (BMI) [Ratio] 26.6 kg/m2 Dr. Bassam Johnson Work Phone: 7(491)884-328142 [place] [address] 09-15-2022 13:11-0400 Body weight 64.[address] Bassam Johnson Work Phone: [facility] 09-15-2022 13:11-0400 Diastolic blood pressure 88 mm[Hg] Dr. Bassam Johnson Work Phone: [facility] 09-15-2022 13:11-0400 Systolic blood pressure 153 mm[Hg] Dr. Bassam Johnson Work Phone: [facility] 12-28-2021 13:56-0400 Body height 154.[address] Bassam Johnson Work Phone: [facility] Work Phone: 12-28-2021 13:56-0400 Body mass index (BMI) [Ratio] 26.1 kg/m2 Dr. Bassam Johnson Work Phone: [facility] Work Phone: 12-28-2021 13:56-0400 Body weight 62.[address] Bassam Johnson Work Phone: [facility] Work Phone: 11-24-2021 14:16-0400 Body temperature 98.9 [degF] Dr. Bassam Johnson Work Phone: [facility] Work Phone: 11-24-2021 14:16-0400 Diastolic blood pressure 93 mm[Hg] Dr. Bassam Johnson Work Phone: [facility] Work Phone: 11-24-2021 14:16-0400 Heart rate 63 /min Dr. Bassam Johnson Work Phone: [facility] Work Phone: 11-24-2021 14:16-0400 Respiratory rate 17 /min Dr. Bassam Johnson Work Phone: [facility] Work Phone: 11-24-2021 14:16-0400 SaO2% (BldA) [Mass fraction] 99 % Dr. Bassam Johnson Work Phone: [facility] Work Phone: 11-24-2021 14:16-0400 Systolic blood pressure 141 mm[Hg] Dr. Bassam Johnson Work Phone: [facility] Work Phone: 11-23-2021 15:52-0400 Body height 154.[address] Bassam Johnson Work Phone: [facility] Work Phone: 11-23-2021 15:52-0400 Body weight 63.[address] Bassam Johnson Work Phone: [facility] Work Phone: 11-23-2021 01:59-0400 Body temperature 97.7 [degF] Dr. Bassam Johnson Work Phone: [facility] Work Phone: 11-23-2021 01:59-0400 Diastolic blood pressure 70 mm[Hg] Dr. Bassam Johnson Work Phone: [facility] Work Phone: 11-23-2021 01:59-0400 Heart rate 71 /min Dr. Bassam Johnson Work Phone: [facility] Work Phone: 11-23-2021 01:59-0400 Respiratory rate 16 /min Dr. Bassam Johnson Work Phone: [facility] Work Phone: 11-23-2021 01:59-0400 SaO2% (BldA) [Mass fraction] 97 % Dr. Bassam Johnson Work Phone: [facility] Work Phone: 11-23-2021 01:59-0400 Systolic blood pressure 142 mm[Hg] Dr. Bassam Johnson Work Phone: [facility] Work Phone: 11-23-2021 01:57-0400 Body height 154.[address] Bassam Johnson Work Phone: [facility] Work Phone: 11-23-2021 01:57-0400 Body mass index (BMI) [Ratio] 26.6 kg/m2 Dr. Bassam Johnson Work Phone: [facility] Work Phone: 11-23-2021 01:57-0400 Body weight 63.[address] Bassam Johnson Work Phone: [facility] Work Phone: 09-02-2021 13:30-0500 Body mass index (BMI) [Ratio] 27.7 kg/m2 Dr. Bassam Johnson Work Phone: [facility] Work Phone: 09-02-2021 13:30-0500 Body temperature 97.4 [degF] Dr. Bassam Johnson Work Phone: [facility] Work Phone: 09-02-2021 13:30-0500 Body weight 64.[address] Bassam Johnson Work Phone: [facility] Work Phone: 09-02-2021 13:30-0500 Diastolic blood pressure 65 mm[Hg] Dr. Bassam Johnson Work Phone: [facility] Work Phone: 09-02-2021 13:30-0500 Heart rate 77 /min Dr. Bassam Johnson Work Phone: [facility] Work Phone: 09-02-2021 13:30-0500 Respiratory rate 17 /min Dr. Bassam Johnson Work Phone: [facility] Work Phone: 09-02-2021 13:30-0500 SaO2% (BldA) [Mass fraction] 97 % Dr. Bassam Johnson Work Phone: [facility] Work Phone: 09-02-2021 13:30-0500 Systolic blood pressure 143 mm[Hg] Dr. Bassam Johnson Work Phone: [facility] Work Phone: 09-02-2021 12:30-0500 Body mass index (BMI) [Ratio] 27.7 kg/m2 Dr. Bassam Johnson Work Phone: [facility] Work Phone: 09-02-2021 12:30-0500 Body temperature 97.4 [degF] Dr. Bassam Johnson Work Phone: [facility] Work Phone: 09-02-2021 12:30-0500 Body weight 64.[address] Bassam Johnson Work Phone: [facility] Work Phone: 09-02-2021 12:30-0500 Diastolic blood pressure 65 mm[Hg] Dr. Bassam Johnson Work Phone: [facility] Work Phone: 09-02-2021 12:30-0500 Heart rate 77 /min Dr. Bassam Johnson Work Phone: [facility] Work Phone: 09-02-2021 12:30-0500 Respiratory rate 17 /min Dr. Bassam Johnson Work Phone: [facility] Work Phone: 09-02-2021 12:30-0500 SaO2% (BldA) [Mass fraction] 97 % Dr. Bassam Johnson Work Phone: [facility] Work Phone: 09-02-2021 12:30-0500 Systolic blood pressure 143 mm[Hg] Dr. Bassam Johnson Work Phone: [facility] Work Phone: 08-26-2021 10:40-0500 Body mass index (BMI) [Ratio] 26.6 kg/m2 Dr. Bassam Johnson Work Phone: [facility] Work Phone: 08-26-2021 10:40-0500 Body weight 63.[address] Bassam Johnson Work Phone: [facility] Work Phone: 08-26-2021 10:40-0500 Diastolic blood pressure 70 mm[Hg] Dr. Bassam Johnson Work Phone: [facility] Work Phone: 08-26-2021 10:40-0500 Systolic blood pressure 110 mm[Hg] Dr. Bassam Johnson Work Phone: [facility] Work Phone: 08-12-2021 13:43-0500 Body weight 64.[address] Bassam Johnson Work Phone: [facility] Work Phone: 08-12-2021 13:43-0500 Diastolic blood pressure 70 mm[Hg] Dr. Bassam Johnson Work Phone: [facility] Work Phone: 08-12-2021 13:43-0500 Systolic blood pressure 138 mm[Hg] Dr. Bassam Johnson Work Phone: [facility] Work Phone: 05-17-2016 13:48-0500 BMI (Body Mass Index) 29.28 kg/m2 [facility] Work Phone: 05-17-2016 13:48-0500 Body weight 70.31 kg Cathy Faustin [facility] Work Phone: 05-17-2016 13:48-0500 Height 154.94 cm [facility] Work Phone: 05-17-2016 13:48-0500 Weight 70.31 kg [facility] Work Phone: Encounters Encounter Date Encounter Type Care Provider Facility Start: 11-18-2024 Encounter for gynecological examination (general) (routine) without abnormal findings Lore Scan[facility] Start: 11-18-2024 End: 11-18-[address] Lore Scanlon MD -[place] [facility] Work Phone: Start: 11-18-2024 End: 11-18-[address] Lore Scanlon [facility] Start: 11-18-2024 End: 11-18-[address] Bassam Johnson DO Work Phone: [facility] Work Phone: Start: 09-30-2024 End: 09-30-[address] Bassam Johnson DO Work Phone: [facility] Work Phone: Start: 09-30-2024 End: 09-30-[address] Bassam Johnson MD -Laboratory Work Phone: Start: 09-30-2024 End: 09-30-2024 ambulatory Bassam Johnson Facility:[facility] Start: 09-16-2024 End: 09-16-[address] Bassam Johnson DO Work Phone: [facility] Work Phone: Start: 09-16-2024 End: 09-16-[address] Lore Scanlon MD -Outpatient Breast Imaging Work Phone: Start: 09-16-2024 End: 09-16-2024 ambulatory Lore Scanlon Facility:[facility] Start: 05-29-2024 Non-patient / Non-visit Dr. Loli angulo MD -[facility] Start: 05-29-2024 End: 05-29-2024 Admission to same day surgery center Dr. Loli Chan MD -Endoscopy Work Phone: Start: 05-29-2024 End: 05-29-2024 ambulatory Bassam Johnson Facility:[facility] Start: 03-31-2024 End: 03-31-2024 Emergency department patient visit Hossein North Facility:[facility] Start: 03-21-2024 End: 03-21-2024 Emergency department patient visit Jose SerranojojocoreyGeronimo Facility:[facility] Start: 03-11-2024 ambulatory [facility] Start: 03-11-2024 ambulatory [facility] Start: 11-06-2023 End: 11-06-[address] Bassam Johnson Work Phone: [facility] Work Phone: Start: 11-06-2023 End: 11-06-[address] Bassam Johnson Work Phone: [facility] Work Phone: Start: 10-20-2023 End: 10-20-[address] Bassam Johnson Work Phone: [facility] Start: 10-20-2023 End: 10-20-[address] Bassam Johnson Work Phone: [facility] Work Phone: Start: 09-15-2023 End: 09-15-2023 ambulatory [facility] Work Phone: Start: 09-15-2023 End: 09-15-2023 Patient encounter procedure [facility] Work Phone: Start: 05-17-2023 End: 05-17-2023 ambulatory [facility] Work Phone: Start: 05-17-2023 End: 05-17-2023 Patient encounter [facility] Work Phone: Start: 04-25-2023 End: 04-25-2023 Emergency department patient visit Dr. Bassam Johnson Work Phone: [facility] Work Phone: Start: 04-24-2023 End: 04-24-[address] Bassam Johnson Work Phone: [facility] Work Phone: Start: 04-24-2023 End: 04-24-[address] Bassam Johnson Work Phone: [facility] Work Phone: Start: 01-12-2023 End: 01-12-[address] Bassam Johnson Work Phone: [facility] Work Phone: Start: 01-06-2023 End: 01-06-[address] Bassam Johnson Work Phone: [facility] Work Phone: Start: 01-06-2023 End: 01-06-[address] [facility] Start: 12-22-2022 Non-patient / Non-visit Dr. Belen Johnson Work Phone: [facility] Start: 12-22-2022 End: 12-22-2022 Admission to same day surgery center Dr. Bass[facility] Start: 12-22-2022 End: 12-22-[address] Bassam Johnson Work Phone: [facility] Work Phone: Start: 11-21-2022 End: 11-21-[address] Bassam Johnson Work Phone: [facility] Start: 11-16-2022 End: 11-16-2022 Emergency department patient visit Dr. Bassam Johnson Work Phone: [facility] Start: 09-29-2022 End: 09-29-[address] Bassam Johnson Work Phone: [facility] Work Phone: Start: 09-29-2022 End: 09-29-[address] Bassam Johnson Work Phone: [facility] Start: 09-22-2022 End: 09-22-2022 Emergency department patient visit Dr. Bassam Johnson Work Phone: [facility] Start: 09-15-2022 End: 09-15-[address] Bassam Johnson Work Phone[facility] Start: 09-12-2022 End: 09-12-[address] Bassam Johnson Work Phone: [facility] Work Phone: Start: 09-12-2022 End: 09-12-[address] Bassam Johnosn Work Phone: [facility] Start: 12-28-2021 End: 12-28-[address] Bassam Johnson Work Phone: [facility] Start: 12-28-2021 End: 12-28-[address] Bassam Johnson Work Phone: [facility] Specimen Start: 11-24-2021 Non-patient / Non-visit Dr. Belen Johnson Work Phone: [facility] Start: 11-24-2021 Non-patient / Non-visit Dr. Belen Johnson Work Phone: [facility] [place] Start: 11-23-2021 End: 11-24-2021 Evaluation and management of inpatient Dr. Bassam [facility] Start: 11-23-2021 Non-patient / Non-visit Dr. Belen Johnson Work Phone: [facility] Start: 11-23-2021 Non-patient / Non-visit Dr. Belen Johnson Work Phone: [facility] Start: 11-23-2021 Evaluation and management of inpatient Dr. Bassam Johnson [facility] Start: 10-13-2021 End: 10-13-[address] Bassam Johnson Work Phone: [facility] Start: 09-08-2021 End: 09-08-[address] Bassam Johnson Work Phone: [facility] Start: 09-02-2021 End: 09-02-[address] Bassam Johnson Work Phone: [facility] Start: 08-26-[address] [place] Johnson Work Phone: [facility] Start: 08-26-2021 End: 08-26-[address] Bassam Johnson Work Phone: [facility] Start: 08-26-2021 End: 08-26-[address] Bassam Johnson Work Phone: [facility] Start: 08-12-2021 End: 08-12-[address] Bassam Johnson Work Phone: [facility] Spec[facility] Start: 08-12-2021 End: 08-12-[address] Bassam Johnson Work Phone: [facility] Procedures Date Procedure Procedure Detail [...] 05-29-2024 Colonoscopy w/biopsy single/multiple COLONOSCOPY AND BIOPSY [facility] Start: 05-29-2024 Patient discharge [facility] Start: 04-25-2023 [facility] Start: 12-22-2022 Anesthesia hernia repair lower abdomen nos ANESTH REPAIR OF HERNIA [facility] Start: 12-22-2022 RPR AA HRN 1ST < 3 CM RDC RPR AA HRN 1ST < 3 CM RDC [facility] Start: 12-22-2022 Patient discharge [facility] Start: 11-24-2021 Patient discharge [facility] Work Phone: Start: 11-24-2021 Following clinical pathway protocol [facility] Work Phone: Start: 11-23-2021 Admission procedure [facility] Work Phone: Start: 11-23-2021 Nil by mouth [facility] Work Phone: Start: 11-23-2021 Following clinical pathway protocol [facility] Work Phone: Start: 11-23-2021 Application of intermittent pneumatic compression device [facility] Work Phone: Start: 11-23-2021 Assessment of risk of venous thromboembolism [facility] Work Phone: Start: 11-23-2021 Insertion of catheter into peripheral vein [facility] Work Phone: Start: 11-23-2021 Providing care according to standard [facility] Work Phone: Start: 11-23-2021 Provision of activity privileges [facility] Work Phone: Start: 11-23-2021 Referral to general surgeon [facility] Work Phone: Start: 11-23-2021 [facility] Work Phone: Start: 11-23-2021 Admission procedure [facility] Work Phone: Start: 08-26-2021 Patient referral [facility] Work Phone: Start: 05-04-2017 End: 05-04-2017 Appointment Appointment [facility] Work Phone: Start: 04-04-2017 End: 04-04-2017 Appointment Appointment [facility] Work Phone: Start: 03-22-2017 End: 03-22-2017 Appointment Appointment [facility] Work Phone: Start: 03-07-2017 End: 03-07-2017 Appointment Appointment [facility] Work Phone: Start: 02-07-2017 End: 02-07-2017 Appointment Appointment [facility] Work Phone: Start: 12-30-2016 End: 12-30-2016 Appointment Appointment [facility] Work Phone: Start: 11-08-2016 End: 11-08-2016 EMG EMG [facility] Work Phone: Start: 11-08-2016 End: 11-08-2016 Nerve Conduction Nerve Conduction [facility] Work Phone: Start: 11-08-2016 End: 11-08-2016 Appointment Appointment [facility] Work Phone: Start: 11-08-2016 End: 11-08-2016 EMG EMG [facility] Work Phone: Start: 11-08-2016 End: 11-08-2016 Nerve Conduction Nerve Conduction [facility] Work Phone: Start: 05-25-2016 End: 05-25-2016 Occupational Therapy General Occupational [facility], [address] [place] [address], [id number] [facility] Work Phone: Start: 05-25-2016 End: 05-25-2016 Occupational Therapy General Occupational Therapy [facility], [address] [place] [address], [id number] [facility] Work Phone: Start: 05-17-2016 End: 05-17-2016 Radex wrist complete minimum 3 views X-Ray, Wrist [facility] Work Phone: Start: 05-17-2016 End: 05-17-2016 X-ray exam of wrist X-Ray, Wrist [facility] Work Phone: DXA Bone [Mass/Area] Bone density [facility] Patient Education [facility] Work Phone: Patient referral [facility] Work Phone: US Pelvis [facility] US Pelvis transvaginal [facility] Immunizations Immunization Date Immunization Notes Care Provider Fa cility 05-13-2021 Covid (Pfizer) Dr. Bassam gu Work Phone: [facility] 04-14-2021 Influenza, high dose seasonal Dr. Bassam Johnson DO Work Phone: [facility] 04-14-2021 influenza, high dose seasonal, preservative-free Dr. Bassam Johnson Work Phone: [facility] 09-29-2020 Covid (Pfizer) Dr. Bassam gu Work Phone: [facility] 09-08-2020 Covid (Pfizer) Dr. Bassam gu Work Phone: [facility] 06-02-[address] Bassam Johnson Work Phone: [facility] Payers Date Payer Category Payer Self-pay [id number] 2014 Medicare [id number] 2014 Unknown [id number] Unknown [id number] [id number] Unknown [id number] [id number] Unknown [id number] 2.16.8 [id number] Unknown [id number] 2.16.8 [id number] Unknown [id number] 2.16.8 [id number] Unknown [id number] 2.16.8 [id number] Unknown [id number] 2.16.8 [id number] Unknown [id number] 2.16.8 [id number] Unknown [id number] 2.16.8 [id number] Social History Date Type Detail Facility Start: 11-22-2021 End: 04-25-2023 Tobacco smoking status NHIS Unknown if ever smoked [facility] Start: 09-01-2019 None [facility] Start: 09-01-2019 Spouse/ Signif icant Other [facility] Start: 09-01-2019 Non-smoker [facility] Start: 1950 Sex Assigned At Female [facility] Start: 05-29-2024 Tobacco smoking status NHIS Never smoked tobacco (finding) [facility] Start: 09-25-2024 End: 10-02-2024 Sex Female (finding) [facility] NEGATED: Highlighted row [facility] Medical Equipment Procedure Code Equipment Code Equipment Origin al Text Equipment Identifier Dates Repair, hernia, umbilical, using mesh ([id number]) Extra-gynaecologic al surgical mesh, composite-polymer ([id number] 01 FDA Start: 12-22-2022 Goals Date Patient Goal Desired Activity /State Functional Status Date Assessment Result Facility 12-22-2022 Functional status Ambulates [facility] Work Phone: 11-24-2021 Functional status Ambulates [facility] Work Phone: Mental Status Date Assessment Result Facility 05-29-2024 Cognitive function Touch/[facility] Work Phone: 04-25-2023 Cognitive function Level Of Cons ciousness Awake;Alert;Appropriate;Follow s Commands [facility] Work Phone: 12-22-2022 Cognitive function Level Of Consciousness Sedated [facility] Work Phone: 12-22-2022 Cognitive function Patient Orien tation Person;Place;Time [facility] Work Phone: 09-22-2022 Cognitive function Level Of Cons ciousness Awake;Alert;Appropriate;Follow s [facility] Work Phone: 11-24-2021 Cognitive function Voice/Name [facility] Work Phone: Clinical Notes 12-22-2022 to 11-18-2024 Note Date & Type Note Facility 11-18-2024 Progress note [facility] 11-18-2024 Progress note Note Date/Time November 18, 2024 3:08pm [facility]'s [address], [address] [place] [address] OFFICE VISIT Date of Service: 11/18/24 MR#: [id number] Acct: [id number] Name: ABY TELLES Rep #: [id number] : 1950 Provider: Dr. 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 Is patient in pain?: No [...] DAILY PRN PRN Anxiety 01/24/17 11/18/24 History ojqiyjgersmy-Uh-tyom-minerals 1 ea PO DAILY supplement 01/24/17 11/18/24 [...] 10 mg PO DAILY 05/09/2210/31 History peg 528-zzxaantwgnxi-uwvrlvvq 1 1 drp EACH EYE BID PRN [...] Cosigner Signature: Date (if applicable) CC: ~ [facility] Work Phone: 1(143) 272-117211-27-2024 Evaluation note* Diagnosis Onset Date Resolution Status Admit Date Encounter for screening for malignant neoplasm of colon acute Edmundo tellez 2023 6:12am [facility] Work Phone: 1(967) 163-878311-27-2024 [facility] Medical Records Department [address] [place] [address] History Physical Exam 05/29/24 0655 MR#: [id number] Acct: [id number] Name: ABY TELLES Rep #: [id number] : 1950 73 From: Loli Chan MD PCP: Dr. Bassam Johnson MD Status:[facility] Location: [place] [address] HPI - General General Date of Service: 05/29/24 HPI Narrative ABY TELLES, is a 73 F who presents for screening colonoscopy. Patient never had previous colonoscopy. Patient denies any family history of colon cancer. Patient denies any chronic abdominal pain/nausea/vomiting/reflux. Patient has bowel movements daily denies any blood. [facility] Medical History Wears partial dentures Wears glasses [...] DAILY PRN PRN Anxiety 01/24/17 05/29/24 History jvfekdfskvah-Th-gvst-minerals 1 ea PO DAILY supplement 01/24/17 05/28/24 [...] mg PO DAILY 05/09/22 05/29/24 History peg 067-dgdvkorgmlyo-danlobtf 1 1 drp EACH EYE BID PRN [...] of Breath: No Hoars (more content not included)...[facility] Chan [facility] December 22, 2022 8:10am Note Date/Time December 22, 2022 8:09 am [facility] Medical Records Department [address] [place] [address] Instructions for Home/Discharge Instructions 12/22/22 0809 MR#: [id number] Acct: [id number] Name: ABY TELLES Rep #:[id number] : 1950 72 From: Loli Chan MD [...] weeks; after 5 PM and on call [phone] with any concerns. Test Results: Test results [...] 1,000 UNIT capsule 1,000 unit PO 0800,1200 uclocmlegbce-Hk-znkp-minerals 1 EACH tablet 1 ea PO DAILY [...] CC: Dr. Bassam Johnson MD ~ Signed [facility] Work Phone: 1(359) 982-651406-22-2023 History and physical note Author Dr. Chan [facility] December 22, 2022 7:12am Note Date/Time December 22, 2022 7:08 am [facility] Medical Records Department [address] [place] [address] H&P Exam - Surgical 12/22/22 0705 MR#: [id number] Acct: [id number] Name: AYB TELLES Rep #:[id number] : 1950 72 From: Loli Chan MD PCP: Dr. Bassam Johnson MD Status:REG [place] Location: [place] [address] HPI - General General Date of Service: [...] may be time to have it repaired. [facility] Medical History (Updated 12/14/22 @ 14:29 by [...] PRN Anxiety 01/24/17 [History Last Taken 12/22/22] olufkoekcftf-Ti-pzpt-minerals 1 ea PO DAILY supplement 01/24/17 [History [...] DAILY 12/14/22 [History Last Taken Unknown] peg 278-myovxtvyixgg-jybhwryx 1 %-0.2 %-0.2 % eye drops (Dry [...] questions were answered. Loli Chan M.D. Pager: [phone] [facility] [address] [place] [address], [facility], [address] [place] [id number] Office: [phone] 12/22/22711 <Electronically signed by Loli Chan MD> Cosigner Signature (if applicable): CC: Dr. Bassam Johnson MD; Dr. Loli Chan MD~ [facility]igned [facility] Work Phone: 1(867) 509-380706-22-2023 [facility]* Diagnosis Onset Date Resolution Status Atypical mole acute [id number] acute Left ovarian cyst acute Umbilical hernia acute Umbilical hernia acute Abdominal pain, epigastric a cute Hernia, umbilical acute Partial obstruction of small intestine acute [facility] Work Phone: evaluation note* Diagnosis Onset Date Resolution Status Umbilical hernia acute Hernia, umbilical acute Abdominal pain, epigastric r esolved Partial obstruction of small intestine resolved Urinary tract infection none active [facility] Work Phone: Evaluation note* Diagnosis Onset Date Resolution Status Encounter for routine gynecological examination noneactive [facility] Work Phone: Evaluation note* Diagnosis Onset Date Resolution Status Encounter for routine gynecological examination noneactive Umbilical hernia acute [facility] Work Phone: Evaluation note* Diagnosis Onset Date Resolution Status History of umbilical hernia repair 2022 acute [facility] Work Phone: evaluation noteNo assessment information available [facility] Work Phone: Evaluation note* Diagnosis Onset Date Resolution Status Cystitis acute [id number] acute Encounter for routine gynecological examination noneactive [facility] Work Phone: Evaluation note* Diagnosis Onset Date Resolution Status Admit Date Encounter for routine gynecological examination noneactive November 182024 2:10pm [facility] Work Phone: Reason for referral (narrative)No reason for referral information [facility]WC[facility] Work Phone: Chief Complaint and Reason for Visit Chief Complaint possible prolapse or infection/ annual sched. 08/26 est annual, last seen 08/25/20 Umbilical Hernia SCREENING OVERIAN CYST SMALL BOWEL OBSTRUCTION SMALL BOWEL OBSTRUCTION Reason for Visit Atypical mole [id number] Left ovarian cyst Umbilical hernia Umbilical hernia Abdominal pain, epigastric Hernia, umbilical Partial obstruction of small intestine Chief Complaint possible prolapse or infection/ annual sched. 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) GENERAL ILLNESS Reason for Visit Encounter for routin e gynecological examination Chief Complaint SCREENING 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) GENERAL ILLNESS LEFT OVARIAN CYST Reason for Visit Encounter for routin e gynecological examination Chief Complaint SCREENING 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) GENERAL ILLNESS LEFT OVARIAN CYST BACK PAIN NAVAL HERNIA [facility]MB HERNIA REP POSS MESH UMB HERNIA REP POSS MESH Reason for Visit Encounter for routin e gynecological examination Umbilical hernia Chief Complaint 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) GENERAL 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 LEFT OVARIAN CYST BACK PAIN [...] Chief Complaint SCREENING Chief Complaint SCREENING 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) OVARIAN CYST LEFT SIDE Reason for Visit Cystitis [id number] Encounter for routine gynecological examination Chief Complaint Admit Date SCREENING September 16, 2024 12: 53pm Reason for Visit Admit Date Encounter for screening for malignant ne oplasm of colon May 29, 2024 6:12am Chief Complaint Admit Date SCREENING September 16, 2024 12: 53pm 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) November 18, 2024 2:10p m Reason for [...] November 22, 2021 1 0:44pm Power of Blueprinter Yes November 22, 2021 10:44pm Advance Directive Response Recorded Date/ Time Living Will Yes November 23, 2021 2 :15am Power of Blueprinter Yes November 23, 2021 2:15am Advance Directive Response Recorded Date/ Time Name of Medical Power of Blueprinter Ruthy Telles November 23, 2021 2:15am Living Will Yes November 23, 2021 2 :15am Power of Blueprinter Yes November 23, 2021 2:15am Advance Directive Response Recorded Date/ Time Name of Medical Power of Blueprinter HAIDER MARIESUJIT September 22, 2022 11:21am Living Will Yes September 22, 2022 11:21am Power of Blueprinter Yes September 22 11:21am Advance Directive Response Recorded Date/ Time Name of Medical Power of Blueprinter HAIDER MARIESUJIT September 22, 2022 11:21am Name of Medical Power of Blueprinter HAIDER November 16, 2022 7:42pm Name of Medical Power of Blueprinter RUTHY ZENG December 14, 2022 2:29pm Living Will Yes December 14, 2022 2:29pm Power of Blueprinter Yes December 14 2:29pm Advance Directive Response Recorded Date/ Time Name of Medical Power of Blueprinter RUTHY TELLES- April 25, 2023 4:53pm Living Will Yes April 25 4:53pm Power of Blueprinter Yes April 25, 2023 4:53pm Advance Directive Response Recorded Date/ Time Name of Medical Power of Blueprinter RUTHY TELLES- April 25, 2023 3:53pm Living Will Yes April 25 3:53pm Power of Blueprinter Yes April 25, 2023 3:53pm Advance Directive Response Recorded Date/ Time Living Will Yes April 25 4:53pm Power of Blueprinter Yes April 25, 2023 4:53pm Advance Directive Response Recorded Date/ Time Living Will Yes May 27, 2 024 10:41am Do you have a Healthcare Pow er of Blueprinter? Yes May 27, 2024 10:41am Name of Medical Power of Blueprinter JASE MENDEZ May 27, 2024 10:41am Summary [...] Inactive Member Role Status Dates Dr. Bassam oJhnson DO Primary Care Provider, Referring Provider Active [...] section and content) DATE CREATED AUTHOR 11/19/2024 [facility] FOR RECORDS PERTAINING TO PATIENTS WHO ARE [...] BE BASED ON THE PRIMARY CLINICAL RECORDS. [employer] [facility]. provides no warranty or guarantee of the accuracy or completeness of information in this document.
[2025-01-22] MEDS: 0.9% Normal Saline (1000mL) 1,000 ML 100 ML IV ×2 (04:02→18:57)
--- OUTSIDE RECORDS SUMMARY | 2025-01-22 05:11 | XMS RPT_ITS | CCD ---
Author Organization [facility] Care Team Providers Care Store Detective Name Role Phone Marlys Clements Unavailable Faustin, Cathy N Unavailable Faustin, Cathy N Unavailable Faustin, Cathy N Unavailable Faustin, Cathy N Unavailable Faustin, Cathy N Unavailable Faustin, Cathy N Unavailable Marlys Clements Unavailable Faustin, Cathy N Unavailable Dr. Bassam Johnson Primary Care Provider Dr. Bassam Johnson Referring Provider Caridad THERMAL CUTTING MACHINE OPERATOR, THERMAL CUTTING MACHINE OPERATOR-C Tiffanie Attending Provider [phone] Dr. Lore Scanlon Attending Provider [phone] Dr. Loli Chan Attending Provider [phone] Dr. Lore Scanlon Referring Provider [phone] Dr. Keyon Mayer Emergency Provider Dr. Milo Borges Admit Provider Dr. Milo Borges Attending Provider Dr. Milo Borges Other Provider Dr. Yaya Little Attending Provider [phone] Dr. Yaya Little Other Provider Dr. Quiana Xavier Other Provider Dr. Quiana Xavier Attending Provider Alex, Dr. Banegas Primary Care Provider Dr. Quiana Xavier Referring Provider Alex, Dr. Banegas Referring Provider Dr. Lore Scanlon Attending Provider Dr. Bassam Johnson Primary Care Provider Alex, Dr. Banegas Referring Provider Dr. Lore Scanlon Attending Provider Dr. Loli Chan Attending Provider Rocio, Dr. Ennis Referring Provider Rocio, Dr. Ennis Other Provider Alex, Dr. Banegas Primary Care Provider Dr. Bassam Johnson Referring Provider Dr. Loli Chan Attending Provider Dr. Bassam Johnson Primary Care Provider Dr. Bassam Johnson Referring Provider Dr. Lore Scanlon Attending Provider Alex PIÑA, Dr. Banegas Primary Care Provider Alex PIÑA, Dr. Banegas Referring Provider Dr. Loli Chan MD Attending Provider Rocio KATHLEEN, Dr. Ennis Other Provider Dr. Lore Scanlon MD Attending Provider [phone] Dr. Lore Scanlon MD Referring Provider Alex PIÑA, Dr. Banegas Primary Care Provider Alex PIÑA, Dr. Banegas Attending Provider Alex PIÑA, Dr. Banegas Referring Provider Schwiger, Hossein Attending Unavailable Schwiger, Hossein Referring Unavailable Alex, Bassam Primary Care Unavailable Lore Scanlon Attending Unavailable Lore Scanlon Referring Unavailable Alex, Bassam Primary Care Unavailable JamesLakisha Attending Unavailable Alex, Bassam Primary Care Unavailable James Lakisha Attending Unavailable Alex, Bassam Primary Care Unavailable Alex, Bassam Referring Unavailable Alex, Bassam Primary Care Unavailable Robotham, Loli Consulting Unavailable Robotham, Loli Attending Unavailable Lore Scanlon Attending Unavailable Alex, Bassam Referring Unavailable Alex, Bassam Primary Care Unavailable Alex, Bassam Referring Unavailable Alex, Bassam Primary Care Unavailable Robotham, Loli Attending Unavailable Alex, Bassam Attending Unavailable Alex, Bassam Referring Unavailable Alex, Bassam Primary Care Unavailable Jose Smith Attending Unavailabl e Alex, Bassam Primary Care Unavailable Alex , Dr. Banegas Primary Care Provider Ghislaine KATHLEEN, Dr. Torrez Attending Provider Breana KATHLEEN, Dr. Cazares Attending Provider [phone] Dr. Deon Hackett DO Emergency Provider [phone] Anabel KATHLEEN, Dr. Javier Admit Provider [phone] Anabel KATHLEEN, Dr. Javier Attending Provider [phone] Allergies Allergy Classification Reported Allergen(s) Allergy Type Date of Onset Reaction(s) Facility (18 sources) cyclobenzaprine Drug Allergy 11-23-19 22 other [facility] (18 sources) oxyCODONE Drug Allergy 11-23-19 22 DIZZY,LIGHTHEA DNESS [facility] (4 sources) Latex Propensity to adverse reactions 05-27-20 24 irritation [facility] Comment on above: gloves (4 sources) montelukast Drug Allergy 05-27-20 24 PT UNSURE OF REACTION [facility] (1 source) cyclobenzaprine Drug Allergy 11-19-19 25 [facility] (1 source) Latex Drug allergy (disorder) 11-19-19 25 [facility] (1 source) montelukast Drug Allergy 11-19-19 25 [facility] (1 source) oxyCODONE Drug Allergy 11-19-19 [facility] Medications Current Medications Medication Drug Class(es) Dates Sig (Normalized) Sig (Original) acetaminophen 500 mg oral tablet (4 sources) Start: 03-11-2024 take 2 tablets by [...] mg PO DAILY May 09, 2022 3:06pm hypertension Start: 11-23-2021 End: 05-09-2022 take 7.5 mg by mouth once daily Amlodipine 5 MG tablet Discontinued 7.5 mg PO DAILY November 23, 2021 1:19am May 09, 2022 3:08pm hypertension Start: 11-23-2021 End: 05-09-2022 take 7.5 mg by mouth once daily Amlodipine Active 7.5 MG PO DAILY May 09, 2022 3:06pm Start: 09-01-2019 End: 11-23-2021 take 1 tablet by mouth once daily Amlodipine 5 MG tablet Discontinued 5 mg PO DAILY 30 0 September 01, 2019 1:00am November 23, 2021 1:25am Ascorbic Acid (20 sources) Vitamin C Start: 08-26-2021 take 1 g by mouth once daily Ascorbic Acid (Vitamin C) Active 1 GM PO DAILY August 26, 2021 12:41pm Start: 08-26-2021 take 1 g by mouth once daily A scorbic Acid (Vitamin C) 1,000 mg tablet Active 1 g PO DAILY August 26, 2021 1:00am supplement Start: 08-26-2021 take 1 g by mouth [...] 24, 2017 12:00am August 26, 2021 12:41pm supplement calcium carbonate 1500 mg oral tablet (18 sources) Start: 01-24-2017 take 2 tablets by mouth once daily Calcium Carbonate 600 MG tablet Active 1200 mg PO DAILY January 24, 2017 12:00am supplement Start: 01-24-2017 take 1200 mg by mouth once lance ly Calcium Carbonate Active 1200 MG PO DAILY January 24, 2017 12:00am cholecalciferol 0.025 mg oral capsule (18 sources) Vitamin D Start: 01-24-2017 take 2 capsules by mouth once daily Cholecalciferol (Vitamin D3) 1,000 UNIT capsule Active 2000 U PO DAILY January 24, 2017 12:00am supplement Start: 01-24-2017 Cholecalcifero l (Vitamin D3) Active 1000 UNIT PO 0800,1200 January 24, 2017 12:00am cinnamon bark 500 mg oral capsule (18 sources) Start: 01-24-2017 Cinnamon Bark 500 MG capsule Active 1000 mg PO 0800,1200 January 24, 2017 12:00am supplement Start: 01-24-2017 Cinnamon Bark Active 1000 MG PO 0800,1200 January 24, 2017 12:00am Dexamethasone 0.1 % drops,suspension (4 sources) Start: 03-11-2024 Dexamethasone 0.1 % drops,suspension Active 1 NMA OPHTHALMIC TWICE A DAY as needed for itching March 11, 2024 12:00am Both eyes famotidine 20 mg oral tablet (18 sources) Histamine-2 Receptor Antagonist Start: 08-12-2021 take 1 tablet by mouth once daily as needed for gastroesophageal reflux disease Famotidine (Pepcid) 20 mg tablet Active 20 mg PO DAILY as needed for GERD August 12, 2021 1:00am ferrous sulfate 325 mg oral tablet (4 sources) Start: 05-27-2024 take 1 tablet by mouth once daily Ferrous Sulfate (Iron (Ferrous Sulfate)) 325 mg (65 mg iron) tablet Active 325 mg PO DAILY May 27, 2024 1:00am fluticasone propionate 0.05 mg/actuat metered dose nasal spray (20 sources) Corticosteroid Start: 08-25-2020 Fluticasone Propionate 50 mcg/actuation spray,suspension Active 1 NMA INTRANASAL DAILY August 25, 2020 1:00am allergies administer into each nostril Start: 08-25-2020 take 1 spray(s) nasa l route once daily Fluticasone Propionate Active 1 SPRAY INTRANASAL DAILY August 25, 2020 1:00am administer into each nostril Start: 05-17-2016 FLUTICASONE NE OPIONATE 50 MCG/ACT SUSP FLUTICASONE PROPIONATE [id number] Danish De La Garza Tory glycerin 2 mg/ml / hypromellose 2 mg/ml / polyethylene glycol 400 10 mg/ml ophthalmic solution (11 sources) Non-Standardized Chemical Allergen Start: 12-14-2022 Peg 553-Nkgwtukxekut-Ayytcks n (Dry Eye Relief) 1-0.2-0.2 % Drops [...] MG tablet Discontinued 20 mg PO DAILY 30 0 September 01, 2019 1:00am November 24, 2021 [...] 05-17-2016 ATIVAN 1 MG TA BS LORAZEPAM [id number] Danish Spears mecobalamin (2 sources) Start: 11-18-2024 take 1 tablet by mouth once daily Mecobalamin (Vitamin B12) 500 mcg tablet,chewable Active 500 ug PO DAILY November 18, 2024 12:00am Start: 11-18-2024 Mecobalamin (V itamin B12) 500 mcg tablet,chewable Active ug PO DAILY November 18, 2024 12:00am Ipwnzmerkhlm-Iv-Oatb-Mineral s (14 sources) Start: 01-24-2017 Riveykybhtwe-Hb-Tvqp-Mineral s Active 1 EACH PO DAILY January 24, 2017 8:21am Start: 01-24-2017 Multivitamin-C u-Gkce-Nglrdenc Active 1 EACH PO DAILY January 23, 2017 11:00pm Start: 01-24-2017 Multivitamin-C c-Qhda-Pfzutrog Active 1 EACH PO DAILY January 24, 2017 12:00am Pvoxfhmlsazs-Nc-Vcab-Mineral s 1 EACH tablet (4 sources) Start: 01-24-2017 take 1 tablet by mouth once daily Dixwezgeeqth-Nn-Ysty-Minerals 1 EACH tablet Active 1 NMA PO DAILY January 24, 2017 12:00am supplement Start: 01-24-2017 take 1 tablet by chapis th once daily Yvcilrhoqwgj-Xy-Ttwp-Minerals 1 EACH tab let Active 1 NMA PO DAILY January 24, 2017 12:00am red yeast rice 600 mg oral capsule (18 sources) Start: 01-24-2017 Red Yeast Rice 600 MG capsule Active 600 mg PO 0800,1200 January 24, 2017 12:00am supplement Completed/Discontinued Medications Medication Drug Class(es) Dates Sig (Normalized) Sig (Original) ampicillin 500 mg oral capsule (18 sources) Penicillin-class Antibacterial Start: 08-16-2021 End: 08-21-2021 take 1 capsule by mouth every eight hours Ampicillin 500 mg capsule Discontinued 500 mg PO Q8H 15 5 0 August 16, 2021 1:00am August 20, 2021 1:00am August 21, 2021 1:05am aspirin 81 mg delayed release oral tablet (15 sources) Nonsteroidal Anti-inflammatory Drug Start: 05-17-2016 ASPIRIN 81 MG [facility] ASPIRIN [id number] Danish Spears calcium (13 sources) Phosphate Binder, Calcium Start: 05-17-2016 CALCIUM 1000 + D TABS CALCIUM CARB-CHOLECALCIFER OL TABS [id number] Danish Holli Spears Start: 05-17-2016 CALCIUM 1000 + D TABS CALCIUM CARB-CHOLECALCIFEROL TABS [id number] Danish Spears CALCIUM CARB-CHOLECALCIFEROL TABS (2 sources) Start: 05-17-2016 CALCIUM 1000 + D TABS CALCIUM CARB-CHOLECALCIFEROL TABS [id number] Danish Spears calcium citrate 1190 mg / cholecalciferol 0.005 mg oral tablet (18 sources) Vitamin D Start: 08-25-2020 End: 08-12-2021 [...] capsule Discontinued 500 mg PO Q12H 20 10 0 April 08, 2022 12:00am April 17, 2022 12:00am April 18, 2022 12:03am coenzyme q10 200 mg oral capsule (15 sources) Start: 05-17-2016 CO Q-10 200 MG CAPS COENZYME Q10 [id number] Danish Speasr Start: 05-17-2016 CO Q-10 200 MG CAPS COENZYME Q10 [id number] Danish Spears Coenzyme U32-Zzkvsln E (14 sources) Start: 01-24-2017 End: 09-01-2019 Coenzyme V26-Qnmtmka E Disco ntinued 1 EACH PO DAILY January 24, 2017 8:21am September 01, 2019 3:07pm Start: 01-24-2017 End: 09-01-2019 Coenzyme V66-Wdvigwp E Disco ntinued 1 EACH PO DAILY January 23, 2017 11:00pm September 01, 2019 2:07pm Start: 01-24-2017 End: 09-01-2019 Coenzyme P81-Hltersg E Disco ntinued 1 EACH PO DAILY January 24, 2017 12:00am September 01, 2019 3:07pm Coenzyme R81-Athijzg E 1 EACH capsule (4 sources) Start: 01-24-2017 End: 09-01-2019 take 1 capsule by mouth once daily Coenzyme A60-Lusmiwu E 1 EACH capsule Discontinued 1 NMA PO DAILY January 24, 2017 12:00am September 01, 2019 3:07pm supplement Start: 01-24-2017 End: 09-01-2019 take 1 capsule by mouth once daily Coenzyme X53-Zdjkuoz E 1 EACH capsule Discontinued 1 NMA PO DAILY January 24, 2017 12:00am September 01, 2019 3:07pm cyclobenzaprine hydrochloride 5 mg oral tablet (18 sources) Muscle Relaxant Start: 01-26-2020 End: 02-14-2020 Cyclobenzaprine 5 mg tablet Discontinued 5 mg PO AT BEDTIME 10 0 January 26, 2020 12:00am February 14, 2020 12:52pm take as needed for muscle spasms. patient may cut in half to decrease dose as tolerated. estriol vaginal cream (2 sources) Start: 11-18-2024 End: 01-21-2025 estriol vaginal cream Discontinued VAGINAL November 18, 2024 12:00am January 21, 2025 11:37pm Start: 11-18-2024 estriol vagina l cream Active VAGINAL November 18, 2024 12:00am estrogens, conjugated (fdc) 0.625 mg/ml vaginal cream (20 sources) Estrogen Start: 05-27-2024 End: 11-18-2024 Conjugated Estrogens (Premarin) 0.625 mg/gram cream Discontinued 0.625 mg VAGINAL .2X/WEEK May 27, 2024 1:00am November 18, 2024 2:23pm Start: 08-25-2020 End: 05-27-2024 Conjugated Estrogens (Premar in) 0.625 mg/gram cream Discontinued 0.625 mg VAGINAL MOFR August 25, 2020 1:00am May 27, 2024 10:33am Check with primary doctor off 5 days; repeat cycle ferrous fumarate 1 mg oral tablet (5 sources) Start: 10-20-2023 End: 05-27-2024 Ferrous Fumarate 63 mg (20 m g iron) tablet Discontinued mg PO October 20, 2023 12:00am May 27, 2024 10:36am fish oil (13 sources) Start: 05-17-2016 FISH OIL 1000 MG CAPS OMEGA-3 FATTY ACIDS [id number] Danish Spears Start: 05-17-2016 FISH OIL 1000 MG CAPS OMEGA-3 FATTY ACIDS [id number] Danish De La Garza Tory fluconazole 150 mg oral tablet (11 sources) Azole Antifungal Start: 03-31-2024 End: 05-27-2024 Fluconazole 150 mg tablet Discontinued 150 mg PO ONE TIME 2 0 March 31, 2024 2:33pm May 27, 2024 10:36am Take 1 tablet after completing your antibiotics. May repeat in 3 days if no improvement Start: 08-19-2022 take 150 mg by mouth once Fluc onazole Active 150 MG PO ONCE 1 August 19, 2022 1:00am as a single dose [id number]-AOK C- [place] (8 sources) Start: 05-17-2016 GLUCOSAMINE CH ONDR 500 COMPLEX CAPS [id number]-[id number]-HTM C-MN [id number] Danish L Tory [id number] C- [place] (7 sources) Start: 05-17-2016 GLUCOSAMINE CH ONDR 500 COMPLEX CAPS [id number]-WWC C-MN [id number] Danish L Tory Start: 05-17-2016 GLUCOSAMINE CH ONDR 500 COMPLEX CAPS [id number] C-MN [id number] Danish L Tory hydroCHLOROthiazide 50 mg / triamterene 75 mg oral tablet (20 sources) Potassium-sparing Diuretic, Thiazide Diuretic Start: 01-24-2017 End: 09-01-2019 Triamterene-Hydrochlorothiaz id 1 TABLET tablet Discontinued 0.5 {tbl} PO DAILY January 24, 2017 12:00am September 01, 2019 3:07pm diuretic Start: 01-24-2017 End: 09-01-2019 take 0.5 tablet by mouth once daily Triamterene-Hydrochlorothiazid Discontin ued 0.5 TABLET PO DAILY January 24, 2017 12:00am September 01, 2019 3:07pm Start: 05-17-2016 TRIAMTERENE-HC TZ 75-50 MG TABS TRIAMTERENE-HCTZ [id number] Danish Spears linseed oil 1000 mg oral capsule (18 sources) Start: 01-24-2017 End: 09-01-2019 Flaxseed Oil 1,000 MG capsule Discontinued 1000 mg PO 0800,1200 January 24, 2017 12:00am September 01, 2019 3:06pm supplement 24 hr loratadine 10 mg / pseudoePHEDrine sulfate 240 mg extended release oral tablet (15 sources) alpha-Adrenergic Agonist Start: 05-17-2016 CLARITIN-D 24 HOUR 10-240 MG [id number] LORATADINE-PSEUDOEPHED RINE [id number] Danish Spears Start: 05-17-2016 CLARITIN-D 24 HOUR 10-240 MG [id number] LORATADINE-PSEUDOEPHEDRINE [id number] Danish Spears magnesium (15 sources) Start: 05-17-2016 MAGNESIUM 400 MG TABS MAGNESIUM [id number] Danish Spears Start: 05-17-2016 MAGNESIUM 400 MG TABS MAGNESIUM [id number] Danish Spears magnesium oxide 400 mg oral tablet (18 sources) Start: 01-24-2017 End: 09-01-2019 Magnesium Oxide 400 MG tablet Discontinued 400 mg PO MOWEFR January 24, 2017 12:00am September 01, 2019 3:07pm supplement meloxicam 7.5 mg oral tablet (20 sources) Nonsteroidal Anti-inflammatory Drug Start: 02-14-2020 End: 08-25-2020 take 1 tablet by mouth once daily Meloxicam (Mobic) 7.5 mg tablet Discontinued 7.5 mg PO DAILY 14 June 15, 2020 2:45pm August 25, 2020 12:29pm Start: 01-26-2020 End: 02-14-2020 take 1 tablet by mouth once daily Meloxicam 15 mg tablet Discontinued 15 mg PO DAILY 14 0 January 26, 2020 12:00am February 14, 2020 12:52pm MULTIPLE VITAMINS-MINERALS (8 sources) Start: 05-17-2016 MULTIVITAMIN W OMEN 50+ TABS MULTIPLE VITAMINS-MINERALS [id number] Danish Holli Spears MULTIPLE VITAMINS-MINERALS (7 sources) Start: 05-17-2016 MULTIVITAMIN W OMEN 50+ TABS MULTIPLE VITAMINS-MINERALS [id number] Danish L Tory Start: 05-17-2016 MULTIVITAMIN W OMEN 50+ TABS MULTIPLE VITAMINS- MINERALS [id number] Danish De La Garza Tory niacin 500 mg oral tablet (18 sources) Nicotinic Acid Start: 01-24-2017 End: 09-01-2019 take 1 tablet by mouth once daily Niacin 500 MG tablet Discontinued 500 mg PO DAILY January 24, 2017 12:00am September 01, 2019 3:07pm supplement nitrofurantoin, macrocrystals 100 mg oral capsule (18 sources) Nitrofuran Antibacterial Start: 08-12-2021 End: 08-16-2021 take 1 capsule by mouth twice daily at mealtime Nitrofurantoin Macrocrystal 100 mg capsule Discontinued 100 mg PO TWICE A DAY 14 7 0 August 12, 2021 1:00am August 18, 2021 1:00am August 16, 2021 5:00pm administer with food (meal or snack) OMEGA-3 FATTY ACIDS (2 sources) Start: 05-17-2016 FISH OIL 1000 MG CAPS OMEGA-3 FATTY ACIDS [id number] Danish Holli Spears Cadott-3 Fatty Acids-Fish Oil (14 sources) Start: 01-24-2017 End: 09-01-2019 Cadott-3 Fatty Acids-Fish Oil Discontinued 1 EACH PO 0800,1200 January 24, 2017 8:21am September 01, 2019 3:07pm Start: 01-24-2017 End: 09-01-2019 Cadott-3 Fatty Acids-Fish Oil Discontinued 1 EACH PO 0800,1200 January 23, 2017 11:00pm September 01, 2019 2:07pm Start: 01-24-2017 End: 09-01-2019 Cadott-3 Fatty Acids-Fish Oil Discontinued 1 EACH PO 0800,1200 January 24, 2017 12:00am September 01, 2019 3:07pm Cadott-3 Fatty Acids-Fish Oil 1 EACH capsule (4 sources) Start: 01-24-2017 End: 09-01-2019 Cadott-3 Fatty Acids-Fish Oil 1 EACH capsule Discontinued 1 NMA PO 0800,1200 January 24, 2017 12:00am September 01, 2019 3:07pm supplement Start: 01-24-2017 End: 09-01-2019 Cadott-3 Fatty Acids-Fish Oil 1 EACH capsule Discontinued 1 NMA PO 0800,1200 January 24, 2017 12:00am September 01, 2019 3:07pm omeprazole 20 mg delayed release oral capsule (13 sources) Proton Pump Inhibitor Start: 09-22-2022 End: 10-20-2023 take 1 capsule by mouth once daily Omeprazole 20 mg capsule,delayed release(DR/EC) Discontinued 20 mg PO DAILY 30 0 September 22, 2022 12:00am October 20, 2023 2:45pm potassium gluconate 2.5 meq oral tablet (18 sources) Start: 01-24-2017 End: 09-01-2019 take 1 tablet by mouth once daily Potassium (Otc) (Potassium Otc) 99 MG tablet Discontinued 99 mg PO DAILY January 24, 2017 12:00am September 01, 2019 3:07pm supplement predniSONE 10 mg oral tablet (20 sources) Start: 10-20-2023 End: 05-27-2024 Prednisone 10 mg tablets,dose pack Discontinued 10 mg PO As Directed as needed March 11, 2024 11:52am May 27, 2024 10:38am see taper instructions Start: 09-01-2019 End: 02-14-2020 Prednisone 5 MG tablet Disco ntinued 5 mg PO DAILY September 01, 2019 1:00am February 14, 2020 12:52pm Sinus congestion started 08/28, 4 tabs x 3 days, 3 tabs x1 day, 2 tabs x 1 day, 1 tab x 3 days. SELENIUM (8 sources) Start: 05-17-2016 SELENIUM 200 M CG TABS SELENIUM [id number] Danish L Tory SELENIUM (5 sources) Start: 05-17-2016 SELENIUM 200 M CG TABS SELENIUM [id number] Danish Spears SELENIUM (2 sources) Start: 05-17-2016 SELENIUM 200 M CG TABS SELENIUM [id number] Danish Spears Selenium (14 sources) Start: 01-24-2017 [...] 01, 2019 3:08pm Selenium 100 MCG tablet (4 sources) Start: 01-24-2017 End: 09-01-2019 take 1 tablet by mouth once daily Selenium 100 MCG tablet Discontinued 200 ug PO DAILY January 24, 2017 12:00am September 01, 2019 3:08pm supplement Start: 01-24-2017 End: 09-01-2019 take 1 tablet by mouth once daily Selenium 100 MCG tablet Discontinued 200 ug PO DAILY January 24, 2017 12:00am September 01, 2019 3:08pm sulfamethoxazole 800 mg / trimethoprim 160 mg oral tablet (15 sources) Dihydrofolate Reductase Inhibitor Antibacterial, Sulfonamide Antimicrobial Start: 12-28-2021 End: 12-31-2021 Sulfamethoxazole-Trimethopri m (Bactrim Ds) 800-160 mg tablet Discontinued 1 {tbl} PO TWICE A DAY 6 3 0 December 28, 2021 12:00am December 30, 2021 12:00am December 31, 2021 12:03am traMADol hydrochloride 50 mg oral tablet (11 sources) Opioid Agonist Start: 12-22-2022 End: 01-12-2023 take 1 tablet by mouth every six hours as needed for pain Tramadol 50 mg tablet Discontinued 50 mg PO EVERY 6 HOURS as needed for pain 10 3 0 December 22, 2022 12:00am January 12, 2023 3:06pm Postoperative pain Other acute postprocedural pain triamcinolone acetonide 40 mg/ml injectable suspension (3 sources) Corticosteroid Start: 02-24-2020 End: 02-24-2020 Kenalog (triamcinolone acetonide) 40 mg/mL suspension for injection Discontinued 80 MG INTRAARTIC ONCE 2 February 24, 2020 1:26pm February 24, 2020 3:17pm vitamin a 66028 unt oral capsule (18 sources) Vitamin A Start: 01-24-2017 End: 09-01-2019 Vitamin A 10,000 UNIT capsul e Discontinued 01478 U PO MOFR January 24, 2017 12:00am September 01, 2019 3:07pm supplement Vitamin B Complex (Balanced B-50) 1 EACH tablet (18 sources) Start: 01-24-2017 End: 09-01-2019 take 1 [...] 24, 2017 12:00am September 01, 2019 3:07pm supplement Start: 01-24-2017 End: 09-01-2019 take 1 tablet [...] 3:07pm vitamin e 180 mg oral capsule (18 sources) Start: 01-24-2017 End: 09-01-2019 take 1 capsule by mouth once daily Vitamin E 400 UNIT capsule Discontinued 400 U PO DAILY January 24, 2017 12:00am September 01, 2019 3:07pm supplement Problems Active Problems Problem Classification Problem Date Documented Da te Episodic/Chronic Abdominal hernia (20 sources) Umbilical hernia; Translations: [Umbilical hernia without obstruction or gangrene] Episodic Comment on above: 1.3 cm in size per C T 2019, reducible Abdominal pain (20 sources) Epigastric pain; Translations: [Epigastric pain] Episodic Acute and unspecified renal failure (18 sources) Injury of kidney; Translations: [Acute kidney failure, unspecified] 09-01-2019 Episodic Essential hypertension (1 source) Hypertensive disorder; Translations: [Essential (primary) hypertension] 01-22-2025 Chronic Fluid and electrolyte disorders (10 sources) Hyponatremia; Translations: [Hypo-osmolality and hyponatremia] Onset: 10-02-2024 04-25-2023 Episodic Headache; including migraine (4 sources) Headache; Translations: [Headache] 03-29-2024 Episodic Headache; including migraine (1 source) Headache; including migraine; Translations: [Headache, unspecified] Onset: 04-13-2024 Intestinal obstruction without hernia (20 sources) Partial obstruction of small bowel; Translations: [Partial intestinal obstruction, unspecified as to cause] Episodic Other and unspecified benign neoplasm (18 sources) Melanocytic nevus; Translations: [Melanocytic nevi, unspecified] 08-26-2021 Episodic Comment on above: ava multani referral Other and unspecified benign neoplasm (3 sources) Melanocytic nevi, unspecified; Translations: [Benign neoplasm of skin, site unspecified] Episodic Other bone disease and musculoskeletal deformities (12 sources) Postmenopausal osteopenia; Translations: [Other specified disorders of bone density and structure, unspecified site] 10-03-2022 Episodic Comment on above: low fracture risk Other bone disease and musculoskeletal deformities (11 sources) Scapulalgia; Translations: [Other specified disorders of bone, shoulder] 11-24-2022 Episodic Other circulatory disease (18 sources) Elevated blood pressure; Translations: [Elevated blood-pressure reading, without diagnosis of hypertension] 09-01-2019 Episodic Other connective tissue disease (18 sources) Impingement syndrome of shoulder region; Translations: [Impingement syndrome of left shoulder] 01-26-2020 Episodic Other nervous system disorders (15 sources) Carpal tunnel syndrome; Translations: [Carpal tunnel syndrome, unspecified upper limb] Onset: 05-17-2016 05-17-2016 Chronic Other nervous system disorders (18 sources) Paresthesia of upper limb; Translations: [Paresthesia of skin] 01-27-2020 Episodic Other screening for suspected conditions (not mental disorders or infectious disease) (8 sources) Patient encounter status; Translations: [Encounter for [...] -11/23 benign rpt in 1 yr. Syncope (9 sources) Vasovagal syncope; Translations: [Syncope and collapse] 04-25-2023 Episodic Unclassified (5 sources) Postoperative physical examination; Translations: [Encounter for other specified surgical aftercare] Onset: 02-07-2017 02-07-2017 Urinary tract infections (15 sources) Chronic interstitial cystitis; Translations: [Interstitial cystitis (chronic) without hematuria] 12-28-2021 Chronic Urinary tract infections (20 sources) Urinary tract infection, site not specified; Translations: [Urinary tract infection, site not specified] Onset: 04-23-2024 Episodic Comment on above: interstim Past or Other Problems Problem Classification Problem Date Documented Date Episodic/Chronic Cataract (14 sources) Cataract 01-29-2022 Other aftercare (3 sources) Encounter for other specified surgical aftercare; Translations: [Encounter for other specified surgical aftercare] Onset: 02-07-2017 02-07-2017 Episodic Other non-traumatic joint disorders (15 sources) Pain in wrist; Translations: [Pain in unspecified wrist] Onset: 05-17-2016 05-17-2016 Episodic Residual codes; unclassified (9 sources) History of repair of umbilical hernia; Translations: [Other specified postprocedural states] Onset: 07-03-2022 01-13-2023 Episodic Residual codes; unclassified (2 sources) Other specified postprocedural states; Translations: [Personal history of surgery to other organs] Onset: 07-03-2022 01-12-2023 Episodic Results Test Name Value Interpretation Reference Range Facility Lactic acid measurementOrder ed By: Deon Hackett on 01-22-2025 Lactate [Moles/Vol] 1.6 mmol/L 0.0-2.0 [facility] [facility] Absolute lymphocyte countOrd ered By: ED PROVIDER on 01-21-2025 Lymphocytes Auto (Unsp spec) [#/Vol] 3.02 10*3/uL 0.83-4.51 [facility] Absolute neutrophil countOrd ered By: ED PROVIDER on 01-21-2025 Neutrophils (Bld) [#/Vol] 8.9 10*3/uL High 2.0-7.7 [facility] Anion gap in Serum or Plasma Ordered By: ED PROVIDER on 01-21-2025 Anion gap [Moles/Vol] 14 mmol/L 5-15 [facility] Automated lymphocyte count a s percentage of total leukocytesOrdered By: ED PROVIDER on 01-21-2025 Lymphocytes/100 WBC Auto (Unsp spec) 22.6 % 19-41 [facility] BUN/creatinine ratioOrdered By: ED PROVIDER on 01-21-2025 Urea nitrogen/Creatinine [Mass ratio] 16.5 mg/mg 10-20 [facility] Basophil percentageOrdered B y: ED PROVIDER on 01-21-2025 Basophils/100 WBC (Bld) 0.9 % 0-1 [facility] Bilirubin, totalOrdered By: ED PROVIDER on 01-21-2025 Bilirubin [Mass/Vol] 0.18 mg/dL 0.00-1.30 [facility] Carbon dioxide, total [Moles /volume] in Central venous bloodOrdered By: ED PROVIDER on 01-21-2025 CO2 [Moles/Vol] 21.0 mmol/L 21.0-32.0 [facility] Chloride assayOrdered By: ED PROVIDER on 01-21-2025 Chloride [Moles/Vol] 94 mmol/L Low 98-108 [facility] Eosinophil percentageOrdered By: ED PROVIDER on 01-21-2025 Eosinophils/100 WBC (Bld) 2.4 % 0-5 [facility] Erythrocyte distribution wid th ratioOrdered By: ED PROVIDER on 01-21-2025 Erythrocyte distribution width (RBC) [Ratio] 13.3 % 11.6-14.6 [facility] Erythrocyte distribution wid th standard deviationOrdered By: ED PROVIDER on 01-21-2025 Erythrocyte distribution width (RBC) [Ratio] 45.1 fl High 35.1-43.9 [facility] Glomerular filtration rate ( GFR) estimation/1.73 sq m using serum, plasma, or whole bOrdered By: ED PROVIDER on 01-21-2025 GFR/1.73 sq M.predicted among non-blacks MDRD (S/P/Bld) [Vol rate/Area] 40 mL/min/{1.73_m2} Low >60 [facility] Comment on above: mL/min/1.73m2 CKD-EP I Creatinine Equation (2020) Hematocrit Auto (Bld) [Volum e fraction]Ordered By: ED PROVIDER on 01-21-2025 Hematocrit (Bld) [Volume fraction] 33.6 % Low 37-47 [facility] Hemoglobin measurementOrdere d By: ED PROVIDER on 01-21-2025 Hemoglobin (Bld) [Mass/Vol] 11.8 g/dL Low 12.0-15.0 [facility] Immature granulocytes/100 WB C Auto (Bld)Ordered By: ED PROVIDER on 01-21-2025 Immature granulocytes/100 WBC (Bld) 0.400 % 0.0-0.9 [facility] Comment on above: IG% - Immature Granu locytes (promyelocytes, myelocytes and metamyelocytes) > 1% indicates that a LEFT SHIFT is Present. Laboratory - Chemistry and C hemistry - challengeOrdered By: ED PROVIDER on 01-21-2025 AST [Catalytic activity/Vol] 22 U/L <32 [facility] Lipase measurementOrdered By : ED PROVIDER on 01-21-2025 Lipase [Catalytic activity/Vol] 62 U/L 13-75 [facility] Comment on above: Please note:LIPASE r evised reference range effective 22. New Lipase methodology. Expected to produce lower values than the previous assay method. NEW Reference Range: 13 - 75 U/L MCV (mean corpuscular volume ) determinationOrdered By: ED PROVIDER on 01-21-2025 MCV (RBC) [Entitic vol] 92.3 fL 81-99 [facility] Mean corpuscular hemoglobin (MCH) determinationOrdered By: ED PROVIDER on 01-21-2025 MCH (RBC) [Entitic mass] 32.4 pg High 27.0-32.0 [facility] Mean corpuscular hemoglobin concentration (MCHC) determinationOrdered By: ED PROVIDER on 01-21-2025 MCHC (RBC) [Mass/Vol] 35.1 g/dL 32-36 [facility] Mean platelet volume determi nationOrdered By: ED PROVIDER on 01-21-2025 Platelet mean volume (Bld) [Entitic vol] 8.9 fL 6.2-12.0 [facility] Monocyte percentageOrdered B y: ED PROVIDER on 01-21-2025 Monocytes/100 WBC (Bld) 7.0 % 0-10 [facility] Neutrophil percentageOrdered By: ED PROVIDER on 01-21-2025 Neutrophils/100 WBC (Bld) 66.7 % 47-70 [facility] Nucleated red blood cell per centageOrdered By: ED PROVIDER on 01-21-2025 Nucleated RBC/100 WBC (Bld) [Ratio] 0 % 0-5 [facility] Platelet countOrdered By: ED PROVIDER on 01-21-2025 Platelets (Bld) [#/Vol] 384 10*3/uL 150-450 [facility] Potassium measurement (mass/ volume)Ordered By: ED PROVIDER on 01-21-2025 Potassium (Unsp spec) [Mass/Vol] 4.2 mmol/L 3.3-5.1 [facility] RBC Auto (Bld) [#/Vol]Ordere d By: ED PROVIDER on 01-21-2025 RBC (Bld) [#/Vol] 3.64 10*6/uL Low 4.2-5.4 [facility] Serum creatinine measurement (mass/volume)Ordered By: ED PROVIDER on 01-21-2025 Creatinine [Mass/Vol] 1.37 mg/dL High 0.70-1.20 [facility] Serum globulin measurementOr dered By: ED PROVIDER on 01-21-2025 Globulin (S) [Mass/Vol] 3.0 g/dL 2.2-4.2 [facility] Serum glucose measurement (m ass/volume)Ordered By: ED PROVIDER on 01-21-2025 Glucose [Mass/Vol] 112 mg/dL High 70-99 [facility] Serum or plasma alanine reyes otransferase (ALT) measurementOrdered By: ED PROVIDER on 01-21-2025 ALT [Catalytic activity/Vol] 20 U/L <35 [facility] Serum or plasma albumin ata urement (mass/volume)Ordered By: ED PROVIDER on 01-21-2025 Albumin [Mass/Vol] 4.1 g/dL 3.4-4.8 [facility] Serum or plasma albumin/glob ulin mass ratioOrdered By: ED PROVIDER on 01-21-2025 Albumin/Globulin [Mass ratio] 1.4 {ratio} 0.9-2.4 [facility] Serum or plasma alkaline edgar sphatase measurementOrdered By: ED PROVIDER on 01-21-2025 ALP [Catalytic activity/Vol] 48 U/L 35-104 [facility] Serum or plasma calcium ata urement (mass/volume)Ordered By: ED PROVIDER on 01-21-2025 Calcium [Mass/Vol] 9.4 mg/dL 7.6-11.0 [facility] Serum or plasma urea nitroge n measurement (mass/volume)Ordered By: ED PROVIDER on 01-21-2025 Urea nitrogen [Mass/Vol] 23 mg/dL High 4-19 [facility] Sodium levelOrdered By: ED P ROVIDER on 01-21-2025 Sodium [Moles/Vol] 129 mmol/L Low 133-145 [facility] Total proteinOrdered By: ED PROVIDER on 01-21-2025 Protein [Mass/Vol] 7.1 g/dL 5.9-8.4 [facility] White blood cell (WBC) count Ordered By: ED PROVIDER on 01-21-2025 WBC (Bld) [#/Vol] 13.4 10*3/uL High 4.4-11.0 [facility] Program Manager Office Visit Reporton 11-18-2024 Program Manager Office Visit Report [facility] [address], [address] [place] [address] OFFICE VISIT Date of Service: 11/18/24 MR#: [id number] Acct: [id number] Name: ABY TELLES Rep #: [id number] : 1950 Provider: Dr. Lore monique MD Age/Sex: 74/F [place] [facility] [place]: Signed Intake Vital Signs 05/29/24 06:39 11/18/24 14:13 11/18/24 14:29 Height 5 ft 1 in 5 ft 1 in Weight: 148 lb 6 oz BMI 28.0 BP 166/74 H 145/76 H Intake Visit Reasons: Annual ([employer]) Filter Washer Required: No Is patient in pain?: No [...] PRN PRN Anxiet y 01/24/17 11/18/24 History idfwbmbzqtig-Vc-oh on-minerals 1 ea PO DAILY supplement 01/24/17 [...] PO DAILY 05/09/22 11/18/24 H istory peg 431-xoppkvltkubn-c lycerin 1 1 drp EACH EYE BID [...] difficulty concentr (more content not included)... Normal [facility] Anion gap in Serum or Plasma Ordered By: Bassam Johnson on 09-30-2024 Anion gap [Moles/Vol] 13 mmol/L - [facility] BUN/creatinine ratioOrdered By: Bassam Johnson on 09-30-2024 Urea nitrogen/Creatinine [Mass ratio] 18.0 mg/mg - [facility] Basic Metabolic Profile (BMP )on 09-30-2024 BUN/CRE 18.0 RATIO Normal - [facility] Comment on above: Performed By: #### L 100.0500, L500.2500 #### [facility] [address] [place], [address] Calcium [Mass/Vol] 9.3 mg/dL Normal 7.6-11.0 [facility] Comment on above: Performed By: #### L 100.0500, L500.2500 #### [facility] [address] [place], [address] Chloride [Moles/Vol] 98 mmol/L Normal 98-108 [facility] Comment on above: Performed By: #### L 100.0500, L500.2500 #### [facility] [address] [place], [address] CO2 [Moles/Vol] 23.0 mmol/L Normal 21.0-32.0 [facility] Comment on above: Performed By: #### L 100.0500, L500.2500 #### [facility] [address] [place], [address] Creatinine [Mass/Vol] 1.38 mg/dL High 0.70-1.20 [facility] Comment on above: Performed By: #### L 100.0500, L500.2500 #### [facility] [address] [place], [address] GAP 13 Normal 5-15 [facility] Comment on above: Performed By: #### L 100.0500, L500.2500 #### [facility] [address] [place], [address] GFR/1.73 sq M.predicted among non-blacks MDRD (S/P/Bld) [Vol rate/Area] 40 mL/min/{1.73_m2} Low >60 [facility] Comment on above: Result Comment: mL/m in/1.73m2 CKD-EPI Creatinine Equation (2020) Performed By: #### L 100.0500, L500.2500 #### [facility] [address] [place], [address] Glucose [Mass/Vol] 101 mg/dL High 70-99 [facility] Comment on above: Performed By: #### L 100.0500, L500.2500 #### [facility] [address] [place], [address] Potassium [Moles/Vol] 3.9 mmol/L Normal 3.3-5.1 [facility] Comment on above: Result Comment: Hemo lysis present, Results??could be affected. ?? Performed By: #### L 100.0500, L500.2500 #### [facility] [address] [place], [address] Sodium [Moles/Vol] 134 mmol/L Normal 133-145 [facility] Comment on above: Performed By: #### L 100.0500, L500.2500 #### [facility] [address] [place], [address] Urea nitrogen [Mass/Vol] 25 mg/dL High 4-19 [facility] Comment on above: Performed By: #### L 100.0500, L500.2500 #### [facility] [address] [place], [address] CBC-Complete Blood Cnt No Di ffon 09-30-2024 Erythrocyte distribution width (RBC) [Ratio] 13.2 % Normal 11.6-14.6 [facility] Comment on above: Performed By: #### L 100.0500, L500.2500 #### [facility] [address] [place], [address] Hematocrit (Bld) [Volume fraction] 33.1 % Low 37-47 [facility] Comment on above: Performed By: #### L 100.0500, L500.2500 #### [facility] [address] [place], [address] Hemoglobin (Bld) [Mass/Vol] 11.7 g/dL Low 12.0-15.0 [facility] Comment on above: Performed By: #### L 100.0500, L500.2500 #### [facility] [address] [place], [address] MCH (RBC) [Entitic mass] 33.0 pg High 27.0-32.0 [facility] Comment on above: Performed By: #### L 100.0500, L500.2500 #### [facility] [address] [place], [address] MCHC (RBC) [Mass/Vol] 35.3 g/dL Normal 32-36 [facility] Comment on above: Performed By: #### L 100.0500, L500.2500 #### [facility] [address] [place], [address] MCV (RBC) [Entitic vol] 93.2 fL Normal 81-99 [facility] Comment on above: Performed By: #### L 100.0500, L500.2500 #### [facility] [address] [place], [address] Platelet mean volume (Bld) [Entitic vol] 8.9 fL Normal 6.2-12.0 [facility] Comment on above: Performed By: #### L 100.0500, L500.2500 #### [facility] [address] [place], [address] Platelets (Bld) [#/Vol] 385 10*3/uL Normal 150-450 [facility] Comment on above: Performed By: #### L 100.0500, L500.2500 #### [facility] [address] [place], [address] RBC (Bld) [#/Vol] 3.55 10*6/uL Low 4.2-5.4 [facility] Comment on above: Performed By: #### L 100.0500, L500.2500 #### [facility] [address] [place], [address] RDW SD 44.6 fl High 35.1-43.9 [facility] Comment on above: Performed By: #### L 100.0500, L500.2500 #### [facility] [address] [place], [address] WBC (Bld) [#/Vol] 9.3 10*3/uL Normal 4.4-11.0 [facility] Comment on above: Performed By: #### L 100.0500, L500.2500 #### [facility] [address] [place], [address] Carbon dioxide, total [Moles /volume] in Central venous bloodOrdered By: Bassam Johnson on 09-30-2024 CO2 [Moles/Vol] 23.0 mmol/L 21.0-32.0 [facility] Chloride assayOrdered By: Belen Johnson on 09-30-2024 Chloride [Moles/Vol] 98 mmol/L 98-108 [facility] Erythrocyte distribution wid th (RBC) [Ratio]Ordered By: Bassam Johnson on 09-30-2024 Erythrocyte distribution width (RBC) [Entitic vol] 44.6 fL High 35.1-43.9 [facility] Erythrocyte distribution wid th ratioOrdered By: Bassam Johnson on 09-30-2024 Erythrocyte distribution width (RBC) [Ratio] 13.2 % 11.6-14.6 [facility] Erythrocyte distribution wid th standard deviationOrdered By: Bassam Johnson on 09-30-2024 Erythrocyte distribution width (RBC) [Ratio] 44.6 fl High 35.1-43.9 [facility] GFR/1.73 sq M.predicted scott g non-blacks MDRD (S/P/Bld) [Vol rate/Area]Ordered By: Bassam Johnson on 09-30-2024 Estimated GFR (MDRD) Non-Af Amer 40 Low >60 [facility] Comment on above: mL/min/1.73m2 CKD-EP I Creatinine Equation (2020) Glomerular filtration rate ( GFR) estimation/1.73 sq m using serum, plasma, or whole bOrdered By: Bassam Johnson on 09-30-2024 GFR/1.73 sq M.predicted among non-blacks MDRD (S/P/Bld) [Vol rate/Area] 40 mL/min/{1.73_m2} Low >60 [facility] Comment on above: mL/min/1.73m2 CKD-EP I Creatinine Equation (2020) Hematocrit Auto (Bld) [Volum e fraction]Ordered By: Bassam Johnson on 09-30-2024 Hematocrit (Bld) [Volume fraction] 33.1 % Low 37-47 [facility] Hemoglobin measurementOrdere d By: Bassam Johnson on 09-30-2024 Hemoglobin (Bld) [Mass/Vol] 11.7 g/dL Low 12.0-15.0 [facility] MCV (mean corpuscular volume ) determinationOrdered By: Bassam Johnson on 09-30-2024 MCV (RBC) [Entitic vol] 93.2 fL 81-99 [facility] Mean corpuscular hemoglobin (MCH) determinationOrdered By: Bassam Johnson on 09-30-2024 MCH (RBC) [Entitic mass] 33.0 pg High 27.0-32.0 [facility] Mean corpuscular hemoglobin concentration (MCHC) determinationOrdered By: Bassam Johnson on 09-30-2024 MCHC (RBC) [Mass/Vol] 35.3 g/dL 32-36 [facility] Mean platelet volume determi nationOrdered By: Bassam Johnson on 09-30-2024 Platelet mean volume (Bld) [Entitic vol] 8.9 fL 6.2-12.0 [facility] Platelet countOrdered By: Belen Johnson on 09-30-2024 Platelets (Bld) [#/Vol] 385 10*3/uL 150-450 [facility] Potassium (Unsp spec) [Mass/ Vol]Ordered By: Bassam Johnson on 09-30-2024 Potassium [Moles/Vol] 3.9 mmol/L 3.3-5.1 [facility] Comment on above: Hemolysis present, R esults could be affected. Potassium measurement (mass/ volume)Ordered By: Bassam Johnson on 09-30-2024 Potassium (Unsp spec) [Mass/Vol] 3.9 mmol/L 3.3-5.1 [facility] Comment on above: Hemolysis present, R esults could be affected. RBC Auto (Bld) [#/Vol]Ordere d By: Bassam Johnson on 09-30-2024 RBC (Bld) [#/Vol] 3.55 10*6/uL Low 4.2-5.4 [facility] Serum creatinine measurement (mass/volume)Ordered By: Bassam Johnson on 09-30-2024 Creatinine [Mass/Vol] 1.38 mg/dL High 0.70-1.20 [facility] Serum glucose measurement (m ass/volume)Ordered By: Bassam Johnson on 09-30-2024 Glucose [Mass/Vol] 101 mg/dL High 70-99 [facility] Serum or plasma calcium ata urement (mass/volume)Ordered By: Bassam Johnson on 09-30-2024 Calcium [Mass/Vol] 9.3 mg/dL 7.6-11.0 [facility] Serum or plasma urea nitroge n measurement (mass/volume)Ordered By: Bassam Johnson on 09-30-2024 Urea nitrogen [Mass/Vol] 25 mg/dL High 4-19 [facility] Sodium levelOrdered By: Bre Johnson on 09-30-2024 Sodium [Moles/Vol] 134 mmol/L 133-145 [facility] White blood cell (WBC) count Ordered By: Bassam Johnson on 09-30-2024 WBC (Bld) [#/Vol] 9.3 10*3/uL 4.4-11.0 [facility] Breast imaging reportOrdered By: Everardo Ann on 09-16-2024 Study report [facility] Services [address] [place] [address] SCRN MAMM (CAD)W/DEBBIE BILAT MR#: [id number] Acct: [id number] Name: ABY TELLES Rep #: [id number] : 1950 F 74 From: Perfecto Ann MD PCP: Dr. Bassam Johnson MD Status: [facility] Study:SCRN MAMM (CAD)W/DEBBIE BILAT Date of Exa m: 09/16/24 Exam# [id number] Ordering Dr: Lore Smith MD EXAM: SCRN [...] FOLLOW-UP Bilateral in 1 Year Reading Location: [place] [address] CC: Dr. Bassam Johnson MD; Dr. Lore Scanlon MD ~ Boiler/Chiller Technician: Signed [facility] SCRN MAMM (CAD)W/DEBBIE BILATo n 09-16-2024 SCRN MAMM (CAD)W/DEBBIE BILAT [facility] Services [address] [place] [address] SCRN MAMM (CAD)W/DEBBIE BILAT MR#: [id number] Acct: [id number] Name: ABY TELLES Rep #: [id number] : 1950 F 74 From: Everardo cornejo MD PCP: Dr. Bassam Jhonson MD Status: [facility] Study: SCRN MAMM (CAD)W/DEBBIE BILAT Date of Exam: 08/31 01/24 Exam# [id number] Ordering Dr: Lore Scanlon EXAM: SCRN MAMM [...] FOLLOW-UP Bilateral in 1 Year Reading Location: [place] [address] CC: Dr. Bassam Johnson MD; Dr. Lore Scanlon MD Boiler/Chiller Technician: Signed Normal [facility] Colonoscopy Reporton 024 Colonoscopy Report [facility] Medical Records Department [address] [place] [address] Colonoscopy Report MR#: [id number] Acct: [id number] Name: ABY TELLES Rep #: [id number] : 1950 73 From: Loli Chan MD PCP: Dr. Bassam Johnson MD Status:REG [facility] Patient Name: Aby [...] that time Procedure Code(s): --- Professional --- 04702, PT, Colonoscopy, flexible; with biopsy, single or multiple Diagnosis Code(s): --- Professional --- Z12.11, Encounter for screening for malignant neoplasm of colon D12.8, Benign neoplasm of rectum CPT copyright 2021 [employer]. All rights reserved. The codes documented in this report are preliminary and upon vice president of instruction review may be revised to meet current compliance requirements. MD Loli Julio MD 05/29/2024 8:04:51 AM This report has been signed electronically. Number of Addenda: 0 Note Initiated On: 05/29/2024 7:29 AM 05/29/24803 Date Loli Chan MD Cosigner Signature: Date (if indicated) CC: Dr. Bassam Johnson MD; Dr. Loli Chan MD Date Dictated: 05/29/24 0729 Date Transcribed: Boiler/Chiller Technician: JASS Signed [facility] MR/POSTOP.Wei 05-29-2024 MR/POSTOP.[facility] Medical Records Department [address] [place] [address] Anesthesia Postop Eval I 05/29/24809 MR#: [id number] Acct: [id number] Name: ABY TELLES Rep #: [id number] : 1950 73 From: Fermin Mcghee PCP: Dr. Bassam Johnson MD Status:[facility] Y Race: C Location: [place] [address] Anesthesia: Postop Eval I Current Vital Signs [...] Date Fermin Restrepo Signature: Date CC: Signed Normal [facility] MR/[id number] 05-29-2024 [facility] Medical Records Department [address] [place] [address] Anesthesia Postop Eval II 05/29/24954 MR#: [id number] Acct: [id number] Name: ABY TELLES Rep #: [id number] : 1950 73 From: Pedro Zhang MD PCP: Dr. Bassam Johnson MD Status:[facility] Y Race: C Location: [place] Anesthesia Postop [...] nausea: No Vomiting: No 05/29/2455 Date Pedro Smith Signature: Date CC: Signed Normal [facility] Surgery Specimen Level Duy 05-29-2024 Surgery Specimen Level IV -- Patient Age/Sex Location Account Attending Physician -- ABY TELLES 73/F EN [id number] Dr. Loli Chan MD -- Specimen: [id number] Received: 05/29/24 Status: LENNY Guerra Num: [id number] Spec Type: COLON BX Subm Dr: Dr. Loli Chan MD HEADER OPERATION: Colonoscopy PRE-OP DIAGNOSIS: Screening TISSUE SUBMITTED: Rectal polyp -- MICROSCOPIC DIAGNOSIS Rectal polyp, biopsy: Fragments of hyperplastic polyp. AM.mr 05/31/2024 MICROSCOPIC DESCRIPTION Slides are reviewed. GROSS DESCRIPTION Received in fixative is one container labeled with the patient's name and designated "Rectal polyp." The specimen consists of two irregular fragments of light leigh soft tissue that in aggregate measure 0.5 x 0.5 x 0.1 cm. The specimen is totally submitted in one cassette. AM. 05/29/2024 TC:5 CPT:63483 -- Patient Age/Sex Location Account Attending Physician -- ABY TELLES 73/F EN [id number] Dr. Loli Chan MD -- Signed (signatu re on file) Dr. Shashank Razo DO 05/31/24 1216 -- Normal [facility] Comment on above: Performed By: #### P SUIV #### [facility] [address] [place] [address], [address] Urine Cultureon 04-03-2024 [facility] Escherichia coli [place] Count 80,000-100,000 Streptococcus agalactiae (B) Streptococcus agalactiae (B) * This is an amended result. * A prior result that was reported as final has been changed. 04/03/24727 by DORA Previously reported as: [] * This is an amended result. * A prior result that was reported as final has been changed. 04/03/24 0729 by DORA Escherichia coli: REACTION Ampicillin Islt [...] S Vancomycin Islt JOANNA 0.5 S Normal [facility] Comment on above: Performed By: #### L 100.0500, L500.2500 #### [facility] [address] [place], [place], [address] Basic Metabolic Profile (BMP )on 03-31-2024 BUN/CRE 17.3 RATIO Normal 10-20 [facility] Comment on above: Order Comment: SP ECIMEN IS MODERATELY LIPEMIC Performed By: #### L 100.0100, L500.2500 #### [facility] [address] [place], [address] CA,Total 8.8 mg/dL Normal 8.5-10.1 [facility] Comment on above: Order Comment: SP ECIMEN IS MODERATELY LIPEMIC Performed By: #### L 100.0100, L500.2500 #### [facility] [address] [place], [address] Chloride [Moles/Vol] 102 mmol/L Normal 98-107 [facility] Comment on above: Order Comment: SP ECIMEN IS MODERATELY LIPEMIC Performed By: #### L 100.0100, L500.2500 #### [facility] [address] [place], [address] CO2 [Moles/Vol] 25.0 mmol/L Normal 21.0-32.0 [facility] Comment on above: Order Comment: SP ECIMEN IS MODERATELY LIPEMIC Performed By: #### L 100.0100, L500.2500 #### [facility] [address] [place], [address] Creatinine [Mass/Vol] 1.33 mg/dL High 0.55-1.02 [facility] Comment on above: Order Comment: SP ECIMEN IS MODERATELY LIPEMIC Result Comment: The validity of the calculated GFR GFRAA in patients over 70 years has not been determined. Clinical correlation is essential. Performed By: #### L 100.0100, L500.2500 #### [facility] [address] [place], [address] ECRCL 32.26 ml/min Normal [facility] Comment on above: Order Comment: SP ECIMEN IS MODERATELY LIPEMIC Performed By: #### L 100.0100, L500.2500 #### [facility] [address] [place], [address] EST GFR - AA 50 mL/min Low >60 [facility] Comment on above: Order Comment: SP ECIMEN IS MODERATELY LIPEMIC Result Comment: Afri can Lithuanian GFR Calc Performed By: #### L 100.0100, L500.2500 #### [facility] [address] [place], [address] GAP 7 Normal 5-15 [facility] Comment on above: Order Comment: SP ECIMEN IS MODERATELY LIPEMIC Performed By: #### L 100.0100, L500.2500 #### [facility] [address] [place], [address] GFR/1.73 sq M.predicted among non-blacks MDRD (S/P/Bld) [Vol rate/Area] 41 mL/min/{1.73_m2} Low >60 [facility] Comment on above: Order Comment: SP ECIMEN IS MODERATELY LIPEMIC Result Comment: Non- GFR Calc Performed By: #### L 100.0100, L500.2500 #### [facility] [address] [place], [address] Glucose [Mass/Vol] 132 mg/dL High 74-106 [facility] Comment on above: Order Comment: SP ECIMEN IS MODERATELY LIPEMIC Result Comment: Fast ing Glucose result greater than or equal to 126 mg/dL suggests DIABETES MELLITUS per A.D.A. criteria. Performed By: #### L 100.0100, L500.2500 #### [facility] [address] [place], [address] Potassium [Moles/Vol] 4.2 mmol/L Normal 3.5-5.1 [facility] Comment on above: Order Comment: SP ECIMEN IS MODERATELY LIPEMIC Performed By: #### L 100.0100, L500.2500 #### [facility] [address] [place], [address] Sodium [Moles/Vol] 134 mmol/L Low 136-145 [facility] Comment on above: Order Comment: SP ECIMEN IS MODERATELY LIPEMIC Performed By: #### L 100.0100, L500.2500 #### [facility] [address] [place], [address] Urea nitrogen [Mass/Vol] 23 mg/dL High 7-18 [facility] Comment on above: Order Comment: SP ECIMEN IS MODERATELY LIPEMIC Performed By: #### L 100.0100, L500.2500 #### [facility] [address] [place], [address] CBC W/Diff, Automatedon 09- Absolute Lymph 1.74 X10 3/uL Normal 0.83-4.51 [facility] Comment on above: Performed By: #### L 100.0100, L500.2500 #### [facility] [address] [place], [address] Absolute Neut 5.2 X10 3/uL Normal 2.0-7.7 [facility] Comment on above: Performed By: #### L 100.0100, L500.2500 #### [facility] [address] [place], [address] Basophils/100 WBC (Bld) 1.3 % High 0-1 [facility] Comment on above: Performed By: #### L 100.0100, L500.2500 #### [facility] [address] [place], [address] Eosinophils/100 WBC (Bld) 2.2 % Normal 0-5 [facility] Comment on above: Performed By: #### L 100.0100, L500.2500 #### [facility] [address] [place], [address] Erythrocyte distribution width (RBC) [Ratio] 12.8 % Normal 11.6-14.6 [facility] Comment on above: Performed By: #### L 100.0100, L500.2500 #### [facility] [address] [place], [address] Hematocrit (Bld) [Volume fraction] 31.5 % Low 37-47 [facility] Comment on above: Performed By: #### L 100.0100, L500.2500 #### [facility] [address] [place], [address] Hemoglobin (Bld) [Mass/Vol] 11.0 g/dL Low 12.0-15.0 [facility] Comment on above: Performed By: #### L 100.0100, L500.2500 #### [facility] [address] [place], [address] IG% 0.500 Normal 0.0-0.9 [facility] Comment on above: Result Comment: IG% - Immature Granulocytes (promyelocytes, myelocytes and metamyelocytes) > 1% indicates that a LEFT SHIFT is Present. Performed By: #### L 100.0100, L500.2500 #### [facility] [address] [facility] [place], [address] Lymphocytes/100 WBC (Bld) 22.3 % Normal 19-41 [facility] Comment on above: Performed By: #### L 100.0100, L500.2500 #### [facility] [address] [place], [address] MCH (RBC) [Entitic mass] 32.7 pg High 27.0-32.0 [facility] Comment on above: Performed By: #### L 100.0100, L500.2500 #### [facility] [address] [place], [address] MCHC (RBC) [Mass/Vol] 34.9 g/dL Normal 32-36 [facility] Comment on above: Performed By: #### L 100.0100, L500.2500 #### [facility] [address] [place], [address] MCV (RBC) [Entitic vol] 93.8 fL Normal 81-99 [facility] Comment on above: Performed By: #### L 100.0100, L500.2500 #### [facility] [address] [place], [address] Monocytes/100 WBC (Bld) 7.3 % Normal 0-10 [facility] Comment on above: Performed By: #### L 100.0100, L500.2500 #### [facility] [address] [place], [address] Neutrophils/100 WBC (Bld) 66.4 % Normal 47-70 [facility] Comment on above: Performed By: #### L 100.0100, L500.2500 #### [facility] [address] [place], [address] Nucleated RBC (Bld) [#/Vol] 0 10*3/uL Normal 0-5 [facility] Comment on above: Performed By: #### L 100.0100, L500.2500 #### [facility] [address] [place], [address] Platelet mean volume (Bld) [Entitic vol] 9.1 fL Normal 6.2-12.0 [facility] Comment on above: Performed By: #### L 100.0100, L500.2500 #### [facility] [address] [place], [address] Platelets (Bld) [#/Vol] 319 10*3/uL Normal 150-450 [facility] Comment on above: Performed By: #### L 100.0100, L500.2500 #### [facility] [address] [place], [address] RBC (Bld) [#/Vol] 3.36 10*6/uL Low 4.2-5.4 [facility] Comment on above: Performed By: #### L 100.0100, L500.2500 #### [facility] [address] [place], [address] RDW SD 43.7 fl Normal 35.1-43.9 [facility] Comment on above: Performed By: #### L 100.0100, L500.2500 #### [facility] [address] [place], [address] WBC (Bld) [#/Vol] 7.8 10*3/uL Normal 4.4-11.0 [facility] Comment on above: Performed By: #### L 100.0100, L500.2500 #### [facility] [address] [place], [address] Emergency Department Summary on 03-31-2024 Emergency Department Summary [facility] Medical Records Department [address] [facility] [place] [address] Emergency Department Summary 03/31/24 MR#: [id number] Acct: [id number] Name: ABY TELLES Rep #: [id number] : 1950 73 From: Hossein North DO [...] Patient denies any fevers or chills. [facility] Medical History Wears partial dentures Wears glasses [...] DAILY PRN PRN Anxiety 01/24/17 12/22/22 History yvhyjcctypcs-Wg-mf on-minerals 1 ea PO DAILY supplement 01/24/17 [...] mg PO DAILY 05/09/22 12/22/22 History peg 607-grtdghgndawo-u lycerin 1 1 drp EACH EYE BID [...] change i (more content not included)... Normal [facility] Urinalysis, Completeon 03-31 BACTERIA 3+ /hpf Normal None Seen [facility] Comment on above: Order Comment: CLEAN CATCH Performed By: #### L 400.0001 #### [facility] [address] [place], [address] EPI,RENAL 5-10 SEEN Normal 0-5 [facility] Comment on above: Order Comment: CLEAN CATCH Performed By: #### L 400.0001 #### [facility] [address] [place], [address] EPI,SQUAMOUS 10-25 SEEN Normal 5-10 [facility] Comment on above: Order Comment: CLEAN CATCH Performed By: #### L 400.0001 #### [facility] [address] [place], [address] WBC >100 SEEN Normal 0-5 [facility] Comment on above: Order Comment: CLEAN CATCH Performed By: #### L 400.0001 #### [facility] [address] [place], [address] BILIRUBIN URINE Negative Normal Negative [facility] Comment on above: Order Comment: CLEAN CATCH Performed By: #### L 400.0001 #### [facility] [address] [place], [address] Clarity (U) Cloudy Normal Clear [facility] Comment on above: Order Comment: CLEAN CATCH Performed By: #### L 400.0001 #### [facility] [address] [place], [address] Color (U) Yellow Normal Yellow [facility] Comment on above: Order Comment: CLEAN CATCH Performed By: #### L 400.0001 #### [facility] [address] [place], [address] GLUCOSE, UR Normal Normal Normal [facility] Comment on above: Order Comment: CLEAN CATCH Performed By: #### L 400.0001 #### [facility] [address] [place], [address] KETONE UR Negative Normal Negative [facility] Comment on above: Order Comment: CLEAN CATCH Performed By: #### L 400.0001 #### [facility] [address] [place], [address] LEUK ESTERASE 500 /ul Abnormal Negative [facility] Comment on above: Order Comment: CLEAN CATCH Performed By: #### L 400.0001 #### [facility] [address] [place], [address] Nitrite Ql (U) Negative Normal Negative [facility] Comment on above: Order Comment: CLEAN CATCH Performed By: #### L 400.0001 #### [facility] [address] [place], [address] OCCULT BLOOD-UR 10 /ul Abnormal Negative [facility] Comment on above: Order Comment: CLEAN CATCH Performed By: #### L 400.0001 #### [facility] [address] [place], [address] pH UR 6.0 Normal 5.0 - 8.0 [facility] Comment on above: Order Comment: CLEAN CATCH Performed By: #### L 400.0001 #### [facility] [address] [place], [address] PROT DIPSTX 30 mg/dl Abnormal Negative [facility] Comment on above: Order Comment: CLEAN CATCH Performed By: #### L 400.0001 #### [facility] [address] [place], [address] SP.GR. DIPSTX 1.010 Normal 1.002-1.030 [facility] Comment on above: Order Comment: CLEAN CATCH Performed By: #### L 400.0001 #### [facility] [address] [place], [address] UROBILI Normal Normal Normal [facility] Comment on above: Order Comment: CLEAN CATCH Performed By: #### L 400.0001 #### [facility] [address] [place], [address] Mucus Ql (Urine sed) 0 SEEN Normal [facility] Comment on above: Order Comment: CLEAN CATCH Performed By: #### L 400.0001 #### [facility] [address] [place], [address] RBC 0 SEEN Normal 0-5 [facility] Comment on above: Order Comment: CLEAN CATCH Performed By: #### L 400.0001 #### [facility] [address] [place], [address] 12 Lead EKGon 03-21-2024 12 Lead EKG [facility] [address] [place] [address] 12 Lead EKG 03/21/24 1215 MR#: [id number] Acct: [id number] Name: ABY TELLES Rep #: [id number] : 1950 73 From: Ignacio Peng MD [...] ) Borderline ECG Confirmed by Ignacio Peng ([id number]), index editor CHRISTY TOVAR ([id number]) on 03/25/2024 10:48:43 AM Referred By: Confirmed By:Ignacio Peng 03/25/24 1048 Date Ignacio Peng MD CC: Dr. Jose Smith DO; Dr. Bassam Johnson MD Signed Normal [facility] Brain/Head without Contrasto n 03-21-2024 Brain/Head without Contrast [facility] [address] [place] [address] Brain/Head without Contrast MR#: [id number] Acct: [id number] Name: ABY TELLES Rep #: [id number] : 1950 F 73 From: Dennys Botello MD PCP: Dr. Bassam Johnson MD Status: REG ER Study: Brain/Head without Contrast Date of Exam: 03/03 03/26 Exam# [id number] Ordering Dr: Corey Smith DO [id number] STUDY: CT BRAIN WITHOUT CONTRAST REASON [...] Jose Smith DO; Dr. 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, [address] Absolute Neut 6.1 X10 3/uL Normal 2.0-7.7 [facility] Comment on above: Performed By: #### L 100.0100, L500.4050 #### [facility] [address] [place], [address] Basophils/100 WBC (Bld) 1.0 % Normal 0-1 [facility] Comment on above: Performed By: #### L 100.0100, L500.4050 #### [facility] [address] [place], [address] Eosinophils/100 WBC (Bld) 1.4 % Normal 0-5 [facility] Comment on above: Performed By: #### L 100.0100, L500.4050 #### [facility] [address] [place], [address] Erythrocyte distribution width (RBC) [Ratio] 12.8 % Normal 11.6-14.6 [facility] Comment on above: Performed By: #### L 100.0100, L500.4050 #### [facility] [address] [place], [address] Hematocrit (Bld) [Volume fraction] 33.7 % Low 37-47 [facility] Comment on above: Performed By: #### L 100.0100, L500.4050 #### [facility] [address] [place], [address] Hemoglobin (Bld) [Mass/Vol] 11.5 g/dL Low 12.0-15.0 [facility] Comment on above: Performed By: #### L 100.0100, L500.4050 #### [facility] [address] [place], [address] IG% 0.400 Normal 0.0-0.9 [facility] Comment on above: Result Comment: IG% - Immature Granulocytes (promyelocytes, myelocytes and metamyelocytes) > 1% indicates that a LEFT SHIFT is Present. Performed By: #### L 100.0100, L500.4050 #### [facility] [address] [place] [place], [address] Lymphocytes/100 WBC (Bld) 17.5 % Low 19-41 [facility] Comment on above: Performed By: #### L 100.0100, L500.4050 #### [facility] [address] [place], [address] MCH (RBC) [Entitic mass] 32.5 pg High 27.0-32.0 [facility] Comment on above: Performed By: #### L 100.0100, L500.4050 #### [facility] [address] [place], [address] MCHC (RBC) [Mass/Vol] 34.1 g/dL Normal 32-36 [facility] Comment on above: Performed By: #### L 100.0100, L500.4050 #### [facility] [address] [place], [address] MCV (RBC) [Entitic vol] 95.2 fL Normal 81-99 [facility] Comment on above: Performed By: #### L 100.0100, L500.4050 #### [facility] [address] [place], [address] Monocytes/100 WBC (Bld) 7.0 % Normal 0-10 [facility] Comment on above: Performed By: #### L 100.0100, L500.4050 #### [facility] [address] [place], [address] Neutrophils/100 WBC (Bld) 72.7 % High 47-70 [facility] Comment on above: Performed By: #### L 100.0100, L500.4050 #### [facility] [address] [place], [address] Nucleated RBC (Bld) [#/Vol] 0 10*3/uL Normal 0-5 [facility] Comment on above: Performed By: #### L 100.0100, L500.4050 #### [facility] [address] [place], [address] Platelet mean volume (Bld) [Entitic vol] 9.1 fL Normal 6.2-12.0 [facility] Comment on above: Performed By: #### L 100.0100, L500.4050 #### [facility] [address] [place], [address] Platelets (Bld) [#/Vol] 339 10*3/uL Normal 150-450 [facility] Comment on above: Performed By: #### L 100.0100, L500.4050 #### [facility] [address] [place], [address] RBC (Bld) [#/Vol] 3.54 10*6/uL Low 4.2-5.4 [facility] Comment on above: Performed By: #### L 100.0100, L500.4050 #### [facility] [address] [place], [address] RDW SD 44.8 fl High 35.1-43.9 [facility] Comment on above: Performed By: #### L 100.0100, L500.4050 #### [facility] [address] [place], [address] WBC (Bld) [#/Vol] 8.3 10*3/uL Normal 4.4-11.0 [facility] Comment on above: Performed By: #### L 100.0100, L500.4050 #### [facility] [address] [place], [address] Comprehensive Metabolic Prof dominick 03-21-2024 Albumin [Mass/Vol] 3.7 g/dL Normal 3.2-5.0 [facility] Comment on above: Performed By: #### L 100.0100, L500.4050 #### [facility] [address] [place], [address] Albumin/Globulin [Mass ratio] 1.0 {ratio} Normal 0.9-2.4 [facility] Comment on above: Performed By: #### L 100.0100, L500.4050 #### [facility] [address] [place], [address] ALK P 57 U/L Normal 45-117 [facility] Comment on above: Performed By: #### L 100.0100, L500.4050 #### [facility] [address] [place], [address] ALT [Catalytic activity/Vol] 33 U/L Normal 13-56 [facility] Comment on above: Performed By: #### L 100.0100, L500.4050 #### [facility] [address] [place], [address] AST [Catalytic activity/Vol] 21 U/L Normal 15-37 [facility] Comment on above: Performed By: #### L 100.0100, L500.4050 #### [facility] [address] [place], [address] Bilirubin [Mass/Vol] 0.30 mg/dL Normal 0.20-1.00 [facility] Comment on above: Result Comment: For patients on eltrombopag therapy, use of Dimension [place] TBIL is not recommended. Performed By: #### L 100.0100, L500.4050 #### [facility] [address] [place], [address] BUN/CRE 16.1 RATIO Normal 10-20 [facility] Comment on above: Performed By: #### L 100.0100, L500.4050 #### [facility] [address] [place], [address] CA,Total 9.4 mg/dL Normal 8.5-10.1 [facility] Comment on above: Performed By: #### L 100.0100, L500.4050 #### [facility] [address] [place], [address] Chloride [Moles/Vol] 102 mmol/L Normal 98-107 [facility] Comment on above: Performed By: #### L 100.0100, L500.4050 #### [facility] [address] [place], [address] CO2 [Moles/Vol] 26.0 mmol/L Normal 21.0-32.0 [facility] Comment on above: Performed By: #### L 100.0100, L500.4050 #### [facility] [address] [place], [address] Creatinine [Mass/Vol] 1.24 mg/dL High 0.55-1.02 [facility] Comment on above: Result Comment: The validity of the calculated GFR GFRAA in patients over 70 years has not been determined. Clinical correlation is essential. Performed By: #### L 100.0100, L500.4050 #### [facility] [address] [place], [address] EST GFR - AA 54 mL/min Low >60 [facility] Comment on above: Result Comment: Afri can Lithuanian GFR Calc Performed By: #### L 100.0100, L500.4050 #### [facility] [address] [place], [address] GAP 5 Normal 5-15 [facility] Comment on above: Performed By: #### L 100.0100, L500.4050 #### [facility] [address] [place], [address] GFR/1.73 sq M.predicted among non-blacks MDRD (S/P/Bld) [Vol rate/Area] 45 mL/min/{1.73_m2} Low >60 [facility] Comment on above: Result Comment: Non- GFR Calc Performed By: #### L 100.0100, L500.4050 #### [facility] [address] [place], [address] Globulin (S) [Mass/Vol] 3.7 g/dL Normal 2.2-4.2 [facility] Comment on above: Performed By: #### L 100.0100, L500.4050 #### [facility] [address] [place], [address] Glucose [Mass/Vol] 132 mg/dL High 74-106 [facility] Comment on above: Result Comment: Fast ing Glucose result greater than or equal to 126 mg/dL suggests DIABETES MELLITUS per A.D.A. criteria. Performed By: #### L 100.0100, L500.4050 #### [facility] [address] [place], [address] Potassium [Moles/Vol] 4.8 mmol/L Normal 3.5-5.1 [facility] Comment on above: Performed By: #### L 100.0100, L500.4050 #### [facility] [address] [place], [address] Sodium [Moles/Vol] 133 mmol/L Low 136-145 [facility] Comment on above: Performed By: #### L 100.0100, L500.4050 #### [facility] [address] [place], [address] T PROT 7.4 g/dL Normal 6.4-8.2 [facility] Comment on above: Performed By: #### L 100.0100, L500.4050 #### [facility] [address] [place], [address] Urea nitrogen [Mass/Vol] 20 mg/dL High 7- [facility] Comment on above: Performed By: #### L 100.0100, L500.4050 #### [facility] [address] [place], [address] Emergency Department Summary on 03-21-2024 Emergency Department Summary [facility] Medical Records Department [address] [place] [address] Emergency Department Summary 03/21/24 MR#: [id number] Acct: [id number] Name: ABY TELLES Rep #: [id number] : 1950 73 From: Jose Smith DO [...] 0 Psych: Cooperative, appropriate mood and affect [facility] Medical History Wears partial dentures Wears glasses [...] DAILY PRN PRN Anxiety 01/24/17 12/22/22 History hsuimyhionjc-Ny-bo on-minerals 1 ea PO DAILY supplement 01/24/17 [...] mg PO DAILY 05/09/22 12/22/22 History peg 428-taegawajxree-b lycerin 1 1 drp EACH EYE BID [...] repair ( (more content not included)... Normal [facility] Urinalysis, Completeon 03-21 BACTERIA Normal None Seen [facility] Comment on above: Order Comment: FREDDIE ASKEWOR TO SPECIFY Result Comment: Canc elled via OM: CANCEL Performed By: #### L 400.0001 #### [facility] [address] [place], [place], [address] BILIRUBIN URINE Normal Negative [facility] Comment on above: Order Comment: FREDDIE CTOR TO SPECIFY Result Comment: Canc elled via OM: CANCEL Performed By: #### L 400.0001 #### [facility] [address] [place], [address] Clarity (U) Normal Clear [facility] Comment on above: Order Comment: FREDDIE CTOR TO SPECIFY Result Comment: Canc elled via OM: CANCEL Performed By: #### L 400.0001 #### [facility] [address] [place], [address] Color (U) Normal Yellow [facility] Comment on above: Order Comment: FREDDIE CTOR TO SPECIFY Result Comment: Canc elled via OM: CANCEL Performed By: #### L 400.0001 #### [facility] [address] [place], [address] EPI,SQUAMOUS Normal 5-10 [facility] Comment on above: Order Comment: FREDDIE CTOR TO SPECIFY Result Comment: Canc elled via OM: CANCEL Performed By: #### L 400.0001 #### [facility] [address] [place], [place], [address] GLUCOSE, UR Normal Normal [facility] Comment on above: Order Comment: FREDDIE CTOR TO SPECIFY Result Comment: Canc elled via OM: CANCEL Performed By: #### L [id number] #### [facility] [address] [place], [address] KETONE UR Normal Negative [facility] Comment on above: Order Comment: FREDDIE CTOR TO SPECIFY Result Comment: Canc elled via OM: CANCEL Performed By: #### [id number] #### [facility] [address] [place], [address] LEUK ESTERASE Normal Negative [facility] Comment on above: Order Comment: FREDDIE CTOR TO SPECIFY Result Comment: Canc elled via OM: CANCEL Performed By: #### [id number] #### [facility] [address] [place], [address] Mucus Ql (Urine sed) Normal [facility] Comment on above: Order Comment: FREDDIE CTOR TO SPECIFY Result Comment: Canc elled via OM: CANCEL Performed By: #### L [id number] #### [facility] [address] [place], [address] Nitrite Ql (U) Normal Negative [facility] Comment on above: Order Comment: FREDDIE CTOR TO SPECIFY Result Comment: Canc elled via OM: CANCEL Performed By: #### [id number] #### [facility] [address] [facility] [address] OCCULT BLOOD-UR Normal Negative [facility] Comment on above: Order Comment: FREDDIE CTOR TO SPECIFY Result Comment: Canc elled via OM: CANCEL Performed By: #### [id number] #### [facility] [address] [place] [id number] pH UR Normal 5.0 - 8.0 [facility] Comment on above: Order Comment: FREDDIE CTOR TO SPECIFY Result Comment: Canc elled via OM: CANCEL Performed By: #### [id number] #### [facility] [address] [place] [address] PROT DIPSTX Normal Negative [facility] Comment on above: Order Comment: FREDDIE CTOR TO SPECIFY Result Comment: Canc elled via OM: CANCEL Performed By: #### [id number] #### [facility] [address] [facility] [address] RBC Normal 0-5 [facility] Comment on above: Order Comment: FREDDIE CTOR TO SPECIFY Result Comment: Canc elled via OM: CANCEL Performed By: #### [id number] #### [facility] [address] [place], [address] SP.GR. DIPSTX Normal 1.002-1.030 [facility] Comment on above: Order Comment: FREDDIE CTOR TO SPECIFY Result Comment: Canc elled via OM: CANCEL Performed By: #### [id number] #### [facility] [address] [place], [address] UR Preservative Normal [facility] Comment on above: Order Comment: COLLE CTOR TO SPECIFY Result Comment: Canc elled via OM: CANCEL Performed By: #### [id number] #### [facility] [address] [place], [address] UROBILI Normal Normal [facility] Comment on above: Order Comment: COLLE CTOR TO SPECIFY Result Comment: Canc elled via OM: CANCEL Performed By: #### [id number] #### [facility] [address] [place], [address] WBC Normal 0-5 [facility] Comment on above: Order Comment: COLLE CTOR TO SPECIFY Result Comment: Canc elled via OM: CANCEL Performed By: #### [id number] #### [facility] [address] [place], [address] Basophil percentageOrdered B y: Bassam Johnson on 05-17-2023 Sodium [Moles/Vol] 136 mmol/L 136-145 [facility] Basophil percentageOrdered B y: Rachel Velez on 04-25-2023 Chloride [Moles/Vol] 104 mmol/L 98-107 [facility] Glucose [Mass/Vol] 105 mg/dL 74-106 [facility] Comment on above: Fasting Glucose resu lt from 100 to 125 mg/dL suggests IMPAIRED HOMEOSTASIS per A.D.A. criteria. Potassium [Moles/Vol] 4.2 mmol/L 3.5-5.1 [facility] Sodium [Moles/Vol] 135 mmol/L 136-145 [facility] Laboratory - Chemistry and C hemistry - challengeOrdered By: Rachel Velez on 04-25-2023 CO2 [Moles/Vol] 25.0 mmol/L 21.0-32.0 [facility] Urea nitrogen/Creatinine [Mass ratio] 14.4 mg/mg 10- [facility] No Panel InformationOrdered By: Rachel Velez on 04-25-2023 Estimated Creatinine Clearance Calc 30.50 ml/min [facility] Estimated GFR (MDRD) Amer 58 mL/min >60 [facility] Comment on above: GFR Calc Estimated GFR (MDRD) Non-Af Amer 48 mL/min >60 [facility] Comment on above: Non- GFR Calc Serum or plasma calcium ata urement (mass/volume)Ordered By: Rachel Velez on 04-25-2023 Calcium [Mass/Vol] 8.5 mg/dL 8.5-10.1 [facility] Serum or plasma creatinine m easurement (mass/volume)Ordered By: Rachel Velez on 04-25-2023 Creatinine [Mass/Vol] 1.18 mg/dL 0.55-1.02 [facility] Comment on above: The validity of the calculated GFR & GFRAA in patients over 70 years has not been determined. Clinical correlation is essential. Serum or plasma urea nitroge n measurement (mass/volume)Ordered By: Rachel Velez on 04-25-2023 Urea nitrogen [Mass/Vol] 17 mg/dL 7-18 [facility] Thin prep Papanicolaou smear with manual screeningOrdered By: Rachel Velez on 04-25-2023 Thin prep Papanicolaou smear with manual screening 6 5-15 [facility] Basophil percentageOrdered B y: Debora Toussaint on 04-24-2023 Chloride [Moles/Vol] 105 mmol/L 98-107 [facility] Glucose [Mass/Vol] 167 mg/dL 74-106 [facility] Comment on above: Fasting Glucose resu lt greater than or equal to 126 mg/dL suggests DIABETES MELLITUS per A.D.A. criteria. Potassium [Moles/Vol] 4.1 mmol/L 3.5-5.1 [facility] Sodium [Moles/Vol] 131 mmol/L 136-145 [facility] WBC (Bld) [#/Vol] 6.1 10*3/uL 4.4-11.0 [facility] Blood erythrocytes count (nu mber/volume)Ordered By: Debora Toussaint on 04-24-2023 RBC (Bld) [#/Vol] 3.43 10*6/uL 4.2-5.4 [facility] Blood hemoglobin measurement (mass/volume)Ordered By: Debora Toussaint on 04-24-2023 Hemoglobin (Bld) [Mass/Vol] 10.9 g/dL 12.0-15.0 [facility] Blood platelet mean volumeOr dered By: Debora Toussaint on 04-24-2023 Platelet mean volume (Bld) [Entitic vol] 9.4 fL 6.2-12.0 [facility] Determination of erythrocyte mean corpuscular volume (MCV)Ordered By: Debora Toussaint on 04-24-2023 MCV (RBC) [Entitic vol] 95.9 fL 81-99 [facility] Hematocrit Auto (Bld) [Volum e fraction]Ordered By: Debora Toussaint on 04-24-2023 Hematocrit (Bld) [Volume fraction] 32.9 % 37-47 [facility] - Chemistry and C hemistry - challengeOrdered By: Debora Toussaint on 04-24-2023 CO2 [Moles/Vol] 24.0 mmol/L 21.0-32.0 [facility] Urea nitrogen/Creatinine [Mass ratio] 14.8 mg/mg 10-20 [facility] - Hematology and Cell countsOrdered By: Debora Toussaint on 04-24-2023 Erythrocyte distribution width (RBC) [Entitic vol] 44.6 fL 35.1-43.9 [facility] Erythrocyte distribution width (RBC) [Ratio] 12.8 % 11.6-14.6 [facility] MCH (RBC) [Entitic mass] 31.8 pg 27.0-32.0 [facility] MCHC Auto (RBC) [Mass/Vol]Or dered By: Debora Toussaint on 04-24-2023 MCHC (RBC) [Mass/Vol] 33.1 g/dL 32-36 [facility] No Panel InformationOrdered By: Debora Toussaint on 04-24-2023 Estimated GFR (MDRD) Amer 55 mL/min >60 [facility] Comment on above: GFR Calc Estimated GFR (MDRD) Non-Af Amer 46 mL/min >60 [facility] Comment on above: Non- GFR Calc Platelets bldOrdered By: Graeme Toussaint on 04-24-2023 Platelets (Bld) [#/Vol] 349 10*3/uL 150-450 [facility] Serum or plasma calcium ata urement (mass/volume)Ordered By: Debora Toussaint on 04-24-2023 Calcium [Mass/Vol] 8.7 mg/dL 8.5-10.1 [facility] Serum or plasma creatinine m easurement (mass/volume)Ordered By: Debora Toussaint on 04-24-2023 Creatinine [Mass/Vol] 1.22 mg/dL 0.55-1.02 [facility] Comment on above: The validity of the calculated GFR & GFRAA in patients over 70 years has not been determined. Clinical correlation is essential. Serum or plasma urea nitroge n measurement (mass/volume)Ordered By: Debora Toussaint on 04-24-2023 Urea nitrogen [Mass/Vol] 18 mg/dL 7-18 [facility] Thin prep Papanicolaou smear with manual screeningOrdered By: Debora Toussaint on 04-24-2023 Thin prep Papanicolaou smear with manual screening 2 5-15 [facility] Bilirubin Test strip Ql (U)O rdered By: Bassam Johnson on 01-06-2023 Bilirubin Ql (U) Negative Negative [facility] Culture, urineOrdered By: Belen Johnson on 01-06-2023 Bacteria identified Cx Nom (U) Escherichia coli [facility] Ketones Test strip Ql (U)Ord ered By: Bassam Johnson on 01-06-2023 Ketones Ql (U) Negative Negative [facility] Nitrite Test strip Ql (U)Ord ered By: Bassam Johnson on 01-06-2023 Nitrite Ql (U) Negative Negative [facility] Protein Test strip Ql (U)Ord ered By: Bassam Johnson on 01-06-2023 Protein Ql (U) 15 mg/dl Negative [facility] Urine blood detectionOrdered By: Bassam Johnson on 01-06-2023 RBC Ql (U) 10 /ul Negative [facility] Urine clarityOrdered By: Sinai Johnson on 01-06-2023 Clarity (U) Sl. Cloudy Clear [facility] Urine color determinationOrd ered By: Bassam Johnson on 01-06-2023 Color (U) Yellow Yellow [facility] Urine glucose detectionOrder ed By: Bassam Johnson on 01-06-2023 Glucose Ql (U) Normal mg/dl Normal [facility] Urine leukocyte esterase det ection by dipstickOrdered By: Bassam Johnson on 01-06-2023 Leukocyte esterase Test strip Ql (U) 500 /ul Negative [facility] Urine pHOrdered By: Bassam Lee on 01-06-2023 pH (U) 6.0 [pH] 5.0 - 8.0 [facility] Urine specific gravity measu rementOrdered By: Bassam Johnson on 01-06-2023 Specific gravity (U) [Rel density] 1.015 1.002-1.030 [facility] Urobilinogen Auto test strip Ql (U)Ordered By: Bassam Johnson on 01-06-2023 Urobilinogen Ql (U) Normal mg/dl Normal [facility] Laboratory - Chemistry and C hemistry - challengeon 12-28-2021 Bilirubin Ql (U) Negative [facility] Work Phone: Glucose Ql (U) Negative [facility] Work Phone: Ketones Ql (U) Small (15+) [facility] Work Phone: pH (U) 5.0 [pH] [facility] Work Phone: Specific gravity (U) [Rel density] 1.025 [facility] Work Phone: Urobilinogen (U) [Mass/Vol] 0.6699951 mg/dL [facility] Work Phone: Laboratory - Hematology and Cell countson 12-28-2021 Hemoglobin Ql (U) Negative [facility] Work Phone: Laboratory - Specimen inform ationon 12-28-2021 Clarity (U) Cloudy [facility] Work Phone: Color (U) Yellow [facility] Work Phone: Laboratory - Urinalysison Nitrite Ql (U) Negative [facility] Work Phone: Protein Ql (U) 1+ [facility] Work Phone: No Panel Informationon 12-28 Urine Leukocytes Positive [facility] Work Phone: Absolute lymphocyte counton 11-24-2021 Lymphocytes Auto (Unsp spec) [#/Vol] 1.82 10*3/uL 0.83-4.51 [facility] Work Phone: Basophil percentageon 2021 Basophils/100 WBC (Bld) 0.7 % 0-1 [facility] Work Phone: Bilirubin [Mass/Vol] 0.40 mg/dL 0.20-1.00 [facility] Work Phone: Comment on above: For patients on eltr ombopag therapy, use of Dimension [place] TBIL is not recommended. Chloride [Moles/Vol] 106 mmol/L 98-107 [facility] Work Phone: Eosinophils/100 WBC (Bld) 2.6 % 0-5 [facility] Work Phone: Glucose [Mass/Vol] 90 mg/dL 74-106 [facility] Work Phone: Neutrophils (Bld) [#/Vol] 4.1 10*3/uL 2.0-7.7 [facility] Work Phone: Neutrophils/100 WBC (Bld) 59.9 % 47-70 [facility] Work Phone: Potassium [Moles/Vol] 4.5 mmol/L 3.5-5.1 [facility] Work Phone: Protein [Mass/Vol] 6.7 g/dL 6.4-8.2 [facility] Work Phone: Sodium [Moles/Vol] 136 mmol/L 136-145 [facility] Work Phone: WBC (Bld) [#/Vol] 6.9 10*3/uL 4.4-11.0 [facility] Work Phone: Blood erythrocytes count (nu mber/volume)on 11-24-2021 RBC (Bld) [#/Vol] 3.38 10*6/uL 4.2-5.4 [facility] Work Phone: Blood hemoglobin measurement (mass/volume)on 11-24-2021 Hemoglobin (Bld) [Mass/Vol] 10.8 g/dL 12.0-15.0 [facility] Work Phone: Blood lymphocytes/100 leukoc yteson 11-24-2021 Lymphocytes/100 WBC (Bld) 26.4 % 19-41 [facility] Work Phone: Blood monocytes/100 leukocyt eson 11-24-2021 Monocytes/100 WBC (Bld) 10.3 % 0-10 [facility] Work Phone: Blood platelet mean volumeon 11-24-2021 Platelet mean volume (Bld) [Entitic vol] 9.1 fL 6.2-12.0 [facility] Work Phone: Determination of erythrocyte mean corpuscular volume (MCV)on 11-24-2021 MCV (RBC) [Entitic vol] 94.7 fL 81-99 [facility] Work Phone: Hematocrit Auto (Bld) [Volum e fraction]on 11-24-2021 Hematocrit (Bld) [Volume fraction] 32.0 % 37-47 [facility] Work Phone: Laboratory - Chemistry and C hemistry - challengeon 11-24-2021 ALP [Catalytic activity/Vol] 51 U/L 45-117 [facility] Work Phone: ALT [Catalytic activity/Vol] 22 U/L 13-56 [facility] Work Phone: CO2 [Moles/Vol] 26.0 mmol/L 21.0-32.0 [facility] Work Phone: Globulin (S) [Mass/Vol] 3.4 g/dL 2.2-4.2 [facility] Work Phone: Urea nitrogen/Creatinine [Mass ratio] 17.7 mg/mg 10-20 [facility] Work Phone: Laboratory - Hematology and Cell countson 11-24-2021 Erythrocyte distribution width (RBC) [Entitic vol] 43.9 fL 35.1-43.9 [facility] Work Phone: Erythrocyte distribution width (RBC) [Ratio] 12.8 % 11.6-14.6 [facility] Work Phone: Immature granulocytes/100 WBC (Bld) 0.100 % 0.0-0.9 [facility] Work Phone: Comment on above: IG% - Immature Granu locytes (promyelocytes, myelocytes and metamyelocytes) > 1% indicates that a LEFT SHIFT is Present. MCH (RBC) [Entitic mass] 32.0 pg 27.0-32.0 [facility] Work Phone: Nucleated RBC/100 WBC (Bld) [Ratio] 0 % 0-5 [facility] Work Phone: MCHC Auto (RBC) [Mass/Vol]on 11-24-2021 MCHC (RBC) [Mass/Vol] 33.8 g/dL 32-36 [facility] Work Phone: No Panel Informationon 11-24 Estimated Creatinine Clearance Calc 33.96 ml/min [facility] Work Phone: Estimated GFR (MDRD) Amer 61 mL/min >60 [facility] Work Phone: Comment on above: GFR Calc Estimated GFR (MDRD) Non-Af Amer 50 mL/min >60 [facility] Work Phone: Comment on above: Non- GFR Calc Platelets bldon 11-24-2021 Platelets (Bld) [#/Vol] 299 10*3/uL 150-450 [facility] Work Phone: Serum or plasma albumin ata urement (mass/volume)on 11-24-2021 Albumin [Mass/Vol] 3.3 g/dL 3.2-5.0 [facility] Work Phone: Serum or plasma albumin/glob ulin mass ratioon 11-24-2021 Albumin/Globulin [Mass ratio] 1.0 {ratio} 0.9-2.4 [facility] Work Phone: Serum or plasma calcium ata urement (mass/volume)on 11-24-2021 Calcium [Mass/Vol] 8.5 mg/dL 8.5-10.1 [facility] Work Phone: Serum or plasma creatinine m easurement (mass/volume)on 11-24-2021 Creatinine [Mass/Vol] 1.13 mg/dL 0.55-1.02 [facility] Work Phone: Comment on above: The validity of the calculated GFR & GFRAA in patients over 70 years has not been determined. Clinical correlation is essential. Serum or plasma urea nitroge n measurement (mass/volume)on 11-24-2021 Urea nitrogen [Mass/Vol] 20 mg/dL 7-18 [facility] Work Phone: Thin prep Papanicolaou smear with manual screeningon 11-24-2021 Thin prep Papanicolaou smear with manual screening 22 U/L 15-37 [facility] Work Phone: Thin prep Papanicolaou smear with manual screening 4 5-15 [facility] Work Phone: Absolute lymphocyte counton 11-22-2021 Lymphocytes Auto (Unsp spec) [#/Vol] 2.36 10*3/uL 0.83-4.51 [facility] Work Phone: Basophil percentageon 2021 Basophils/100 WBC (Bld) 0.9 % 0-1 [facility] Work Phone: Bilirubin [Mass/Vol] 0.40 mg/dL 0.20-1.00 [facility] Work Phone: Comment on above: For patients on eltr ombopag therapy, use of Dimension [place] TBIL is not recommended. Chloride [Moles/Vol] 101 mmol/L 98-107 [facility] Work Phone: Eosinophils/100 WBC (Bld) 2.2 % 0-5 [facility] Work Phone: Glucose [Mass/Vol] 112 mg/dL 74-106 [facility] Work Phone: Comment on above: Fasting Glucose resu lt from 100 to 125 mg/dL suggests IMPAIRED HOMEOSTASIS per A.D.A. criteria. Neutrophils (Bld) [#/Vol] 6.9 10*3/uL 2.0-7.7 [facility] Work Phone: Neutrophils/100 WBC (Bld) 66.1 % 47-70 [facility] Work Phone: Potassium [Moles/Vol] 4.2 mmol/L 3.5-5.1 [facility] Work Phone: Protein [Mass/Vol] 7.4 g/dL 6.4-8.2 [facility] Work Phone: Sodium [Moles/Vol] 134 mmol/L 136-145 [facility] Work Phone: WBC (Bld) [#/Vol] 10.4 10*3/uL 4.4-11.0 [facility] Work Phone: Blood erythrocytes count (nu mber/volume)on 11-22-2021 RBC (Bld) [#/Vol] 3.63 10*6/uL 4.2-5.4 [facility] Work Phone: Blood hemoglobin measurement (mass/volume)on 11-22-2021 Hemoglobin (Bld) [Mass/Vol] 11.6 g/dL 12.0-15.0 [facility] Work Phone: Blood lymphocytes/100 leukoc yteson 11-22-2021 Lymphocytes/100 WBC (Bld) 22.8 % 19-41 [facility] Work Phone: Blood monocytes/100 leukocyt eson 11-22-2021 Monocytes/100 WBC (Bld) 7.1 % 0-10 [facility] Work Phone: Blood platelet mean volumeon 11-22-2021 Platelet mean volume (Bld) [Entitic vol] 9.3 fL 6.2-12.0 [facility] Work Phone: Determination of erythrocyte mean corpuscular volume (MCV)on 11-22-2021 MCV (RBC) [Entitic vol] 93.7 fL 81-99 [facility] Work Phone: Direct bilirubinon Bilirubin.direct [Mass/Vol] 0.11 mg/dL 0.00-0.30 [facility] Work Phone: Hematocrit Auto (Bld) [Volum e fraction]on 11-22-2021 Hematocrit (Bld) [Volume fraction] 34.0 % 37-47 [facility] Work Phone: Laboratory - Chemistry and C hemistry - challengeon 11-22-2021 ALP [Catalytic activity/Vol] 62 U/L 45-117 [facility] Work Phone: ALT [Catalytic activity/Vol] 27 U/L 13-56 [facility] Work Phone: CO2 [Moles/Vol] 26.0 mmol/L 21.0-32.0 [facility] Work Phone: Globulin (S) [Mass/Vol] 3.4 g/dL 2.2-4.2 [facility] Work Phone: Lipase [Catalytic activity/Vol] 291 U/L 73-393 [facility] Work Phone: Urea nitrogen/Creatinine [Mass ratio] 16.3 mg/mg 10-20 [facility] Work Phone: Laboratory - Hematology and Cell countson 11-22-2021 Erythrocyte distribution width (RBC) [Entitic vol] 43.0 fL 35.1-43.9 [facility] Work Phone: Erythrocyte distribution width (RBC) [Ratio] 12.4 % 11.6-14.6 [facility] Work Phone: Immature granulocytes/100 WBC (Bld) 0.900 % 0.0-0.9 [facility] Work Phone: Comment on above: IG% - Immature Granu locytes (promyelocytes, myelocytes and metamyelocytes) > 1% indicates that a LEFT SHIFT is Present. MCH (RBC) [Entitic mass] 32.0 pg 27.0-32.0 [facility] Work Phone: Nucleated RBC/100 WBC (Bld) [Ratio] 0 % 0-5 [facility] Work Phone: MCHC Auto (RBC) [Mass/Vol]on 11-22-2021 MCHC (RBC) [Mass/Vol] 34.1 g/dL 32-36 [facility] Work Phone: No Panel Informationon 11-22 Estimated Creatinine Clearance Calc 27.21 ml/min [facility] Work Phone: Estimated GFR (MDRD) Amer 47 mL/min >60 [facility] Work Phone: Comment on above: GFR Calc Estimated GFR (MDRD) Non-Af Amer 39 mL/min >60 [facility] Work Phone: Comment on above: Non- GFR Calc Troponin I High Sensitivity 18 pg/mL 3.0-54.0 [facility] Work Phone: Comment on above: Please Note: New Anne t Units and Gender Specific Reference Ranges. For more information see Policy Stat Procedure [place] High Sensitivity Troponin (TNIH) and attachments. Platelets bldon 11-22-2021 Platelets (Bld) [#/Vol] 360 10*3/uL 150-450 [facility] Work Phone: Serum or plasma albumin ata urement (mass/volume)on 11-22-2021 Albumin [Mass/Vol] 4.0 g/dL 3.2-5.0 [facility] Work Phone: Serum or plasma calcium ata urement (mass/volume)on 11-22-2021 Calcium [Mass/Vol] 9.2 mg/dL 8.5-10.1 [facility] Work Phone: Serum or plasma creatinine m easurement (mass/volume)on 11-22-2021 Creatinine [Mass/Vol] 1.41 mg/dL 0.55-1.02 [facility] Work Phone: Comment on above: The validity of the calculated GFR & GFRAA in patients over 70 years has not been determined. Clinical correlation is essential. Serum or plasma urea nitroge n measurement (mass/volume)on 11-22-2021 Urea nitrogen [Mass/Vol] 23 mg/dL 7-18 [facility] Work Phone: Thin prep Papanicolaou smear with manual screeningon 11-22-2021 Thin prep Papanicolaou smear with manual screening 20 U/L 15-37 [facility] Work Phone: Thin prep Papanicolaou smear with manual screening 7 5-15 [facility] Work Phone: Culture, urineon 08-12-2021 Bacteria identified Cx Nom (U) Escherichia coli [facility] Work Phone: Gram stain for investigation of transfusion reactionon 08-12-2021 Microscopic observation Gram stain Nom (Unsp spec) [facility] Work Phone: Laboratory - Chemistry and C hemistry - challengeon 08-12-2021 Bilirubin Ql (U) Negative [facility] Work Phone: Glucose Ql (U) Negative [facility] Work Phone: Ketones Ql (U) Negative [facility] Work Phone: pH (U) 8.5 [pH] [facility] Work Phone: Specific gravity (U) [Rel density] 1.005 [facility] Work Phone: Urobilinogen (U) [Mass/Vol] Negative [facility] Work Phone: Laboratory - Hematology and Cell countson 08-12-2021 Hemoglobin Ql (U) Negative [facility] Work Phone: Laboratory - Specimen inform ationon 08-12-2021 Clarity (U) Clear [facility] Work Phone: Color (U) YELLOW [facility] Work Phone: Laboratory - Urinalysison Nitrite Ql (U) Negative [facility] Work Phone: Protein Ql (U) Negative [facility] Work Phone: No Panel Informationon 08-12 Urine Leukocytes Positive [facility] Work Phone: Urine Non-Hemolyzed Blood Negative [facility] Work Phone: Thin prep Papanicolaou smear with manual screeningon 08-12-2021 Genital Culture 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 [facility] Work Phone: Office Visiton 05-04-2017 Documentation of current medications (procedure) Done Invalid Interpretation Code [facility] Work Phone: Tobacco use [facility] Never smoker Invalid Interpretation Code [facility] Work Phone: Office Visiton 04-04-2017 Documentation of current medications (procedure) Done Invalid Interpretation Code [facility] Work Phone: Protein mass conc Done Invalid Interpretation Code [facility] Work Phone: Tobacco smoking status NHIS Never smoker Invalid Interpretation Code [facility] Work Phone: Tobacco use [facility] Never smoker Invalid Interpretation Code [facility] Work Phone: Office Visiton 03-07-2017 Documentation of current medications (procedure) Done Invalid Interpretation Code [facility] Work Phone: Tobacco use CPHS Never smoker Invalid Interpretation Code [facility] Work Phone: Office Visiton 02-07-2017 Documentation of current medications (procedure) Done Invalid Interpretation Code [facility] Work Phone: Office Visiton 01-17-2017 Documentation of current medications (procedure) Done Invalid Interpretation Code [facility] Work Phone: Protein mass conc Done [facility] Work Phone: Tobacco smoking status NHIS Never smoker [facility] Work Phone: Tobacco use CPHS Never smoker Invalid Interpretation Code [facility] Work Phone: Office Visiton 11-08-2016 Documentation of current medications (procedure) Done Invalid Interpretation Code [facility] Work Phone: Tobacco smoking status NHIS Never smoker [facility] Work Phone: Tobacco use CPHS Never smoker Invalid Interpretation Code [facility] Work Phone: Culture, urine Bacteria identified Cx Nom (U) Presumptive E. coli [facility] Work Phone: Vital Signs Date Time Vital Sign Value Performing Clinician Facility 01-22-2025 03:00-0400 Diastolic blood pressure 69 mm[Hg] Dr. Bassam Johnson DO Work Phone: [facility] 01-22-2025 03:00-0400 Heart rate 58 /min Dr. Bassam Johnson DO Work Phone: [facility] 01-22-2025 03:00-0400 Respiratory rate 18 /min Dr. Bassam Johnson DO Work Phone: [facility] 01-22-2025 03:00-0400 SaO2% (BldA) [Mass fraction] 100 % Dr. Bassam Johnson DO Work Phone: [facility] 01-22-2025 03:00-0400 Systolic blood pressure 149 mm[Hg] Dr. Bassam Johnson DO Work Phone: [facility] 01-22-2025 01:56-0400 Body temperature 98 [degF] Dr. Bassam Johnson DO Work Phone: 0(230)732-759027 [address] 01-21-2025 21:42-0400 Body height 154.[address] Bassam Johnson DO Work Phone: 8(818)612-268127 [address] 01-21-2025 21:42-0400 Body mass index (BMI) [Ratio] 27.9 kg/m2 Dr. Bassam Johnson DO Work Phone: 9(862)940-289427 [address] 01-21-2025 21:42-0400 Body weight 67.[address] Bassam Johnson DO Work Phone: 3(876)222-644704 [place] [address] 11-18-2024 14:29-0400 Diastolic blood pressure 76 mm[Hg] Dr. Bassam Johnson DO Work Phone: 5(203)634-948904 [place] [address] 11-18-2024 14:29-0400 Systolic blood pressure 145 mm[Hg] Dr. Bassam Johnson DO Work Phone: 8(132)574-935704 [place] [address] 11-18-2024 14:13-0400 Body height 154.[address] Bassam Johnson DO Work Phone: 1(105)329-349704 [place] [address] 11-18-2024 14:13-0400 Body mass index (BMI) [Ratio] 28 kg/m2 Dr. Bassam Johnson DO Work Phone: 7(893)790-755404 [place] [address] 11-18-2024 14:13-0400 Body weight 67.[address] Bassam Johnson DO Work Phone: 4(377)285-322904 [place] [address] 05-29-2024 08:45-0500 Body temperature 98.3 [degF] Dr. Bassam Johnson DO Work Phone: 3(185)019-264504 [place] [address] 05-29-2024 08:45-0500 Diastolic blood pressure 47 mm[Hg] Dr. Bassam Johnson DO Work Phone: 6(410)910-593427 [address] 05-29-2024 08:45-0500 Heart rate 62 /min Dr. Bassam Johnson DO Work Phone: 1(953)497-208432 [place] [address] 05-29-2024 08:45-0500 Respiratory rate 16 /min Dr. Bassam Johnson DO Work Phone: 2(432)079-328404 [place] [address] 05-29-2024 08:45-0500 SaO2% (BldA) [Mass fraction] 95 % Dr. Bassam Johnson DO Work Phone: 4(749)159-951104 [place] [address] 05-29-2024 08:45-0500 Systolic blood pressure 95 mm[Hg] Dr. Bassam Johnson DO Work Phone: 8(056)769-344204 [place] [address] 05-29-2024 06:39-0500 Body height 154.[address] Bassam Johnson DO Work Phone: 6(952)122-375804 [place] [address] 05-29-2024 06:39-0500 Body mass index (BMI) [Ratio] 26.6 kg/m2 Dr. Bassam Johnson DO Work Phone: 9(833)620-274404 [place] [address] 05-29-2024 06:39-0500 Body weight [address] Bassam Johnson DO Work Phone: 7(461)171-466904 [place] [address] 10-20-2023 14:53-0400 Body height 152.[address] Bassam Johnson Work Phone: 8(435)277-123704 [place] [address] 10-20-2023 14:41-0400 Body mass index (BMI) [Ratio] 28.3 kg/m2 Dr. Bassam Johnson Work Phone: 5(960)733-716204 [place] [address] 10-20-2023 14:41-0400 Body weight 65.[address] Bassam Johnson Work Phone: 7(709)281-910104 [place] [address] 10-20-2023 14:41-0400 Diastolic blood pressure 69 mm[Hg] Dr. Bassam Johnson Work Phone: 0(721)027-354904 [place] [address] 10-20-2023 14:41-0400 Systolic blood pressure 128 mm[Hg] Dr. Bassam Johnson Work Phone: 2(122)842-547104 [place] [address] 04-25-2023 18:01-0400 Diastolic blood pressure 68 mm[Hg] Dr. Bassam Johnson Work Phone: 2(130)992-848704 [place] [address] 04-25-2023 18:01-0400 Heart rate 58 /min Dr. Bassam Johnson Work Phone: 6(142)413-854504 [place] [address] 04-25-2023 18:01-0400 Respiratory rate 16 /min Dr. Bassam Johnson Work Phone: 4(555)726-546504 [place] [address] 04-25-2023 18:01-0400 SaO2% (BldA) [Mass fraction] 100 % Dr. Bassam Johnson Work Phone: 0(746)617-637904 [place] [address] 04-25-2023 18:01-0400 Systolic blood pressure 146 mm[Hg] Dr. Bassam Johnson Work Phone: 9(951)844-373204 [place] [address] 04-25-2023 16:06-0400 Body height 152.[address] Bassam Johnson Work Phone: 2(265)540-515004 [place] [address] 04-25-2023 16:06-0400 Body mass index (BMI) [Ratio] 26.7 kg/m2 Dr. Bassam Johnson Work Phone: 8(210)126-577404 [place] [address] 04-25-2023 16:06-0400 Body temperature 98 [degF] Dr. Bassam Johnson Work Phone: 0(516)965-286504 [place] [address] 04-25-2023 16:06-0400 Body weight 62.[address] Bassam Johnson Work Phone: 6(671)459-526804 [place] [address] 12-22-2022 10:30-0400 Body temperature 96.9 [degF] Dr. Bassam Johnson Work Phone: 9(028)974-920804 [place] [address] 12-22-2022 10:30-0400 Diastolic blood pressure 57 mm[Hg] Dr. Bassam Johnson Work Phone: 8(689)683-860204 [place] [address] 12-22-2022 10:30-0400 Heart rate 75 /min Dr. Bassam Johnson Work Phone: 5(227)700-251404 [place] [address] 12-22-2022 10:30-0400 Respiratory rate 17 /min Dr. Bassam Johnson Work Phone: 1(164)500-896404 [place] [address] 12-22-2022 10:30-0400 SaO2% (BldA) [Mass fraction] 97 % Dr. Bassam Johnson Work Phone: 0(479)354-050304 [place] [address] 12-22-2022 10:30-0400 Systolic blood pressure 130 mm[Hg] Dr. Bassam Johnson Work Phone: 4(868)798-654304 [place] [address] 12-22-2022 06:25-0400 Body height 152.[address] Bassam Johnson Work Phone: 8(165)599-969004 [place] [address] 12-22-2022 06:25-0400 Body mass index (BMI) [Ratio] 26.3 kg/m2 Dr. Bassam Johnson Work Phone: 6(794)945-440204 [place] [address] 12-22-2022 06:25-0400 Body weight 61.[address] Bassam Johnson Work Phone: 9(902)118-633504 [place] [address] 11-21-2022 13:20-0400 Body mass index (BMI) [Ratio] 28.3 kg/m2 Dr. Bassam Johnson Work Phone: 7(036)416-362404 [place] [address] 11-21-2022 13:20-0400 Body weight 65.[address] Bassam Johnson Work Phone: 3(669)204-783104 [place] [address] 11-21-2022 13:20-0400 Diastolic blood pressure 76 mm[Hg] Dr. Bassam Johnson Work Phone: 2(786)257-232904 [place] [address] 11-21-2022 13:20-0400 Respiratory rate 18 /min Dr. Bassam Johnson Work Phone: 3(300)130-019304 [place] [address] 11-21-2022 13:20-0400 Systolic blood pressure 146 mm[Hg] Dr. Bassam Johnson Work Phone: 4(627)565-723204 [place] [address] 11-16-2022 21:28-0400 Respiratory rate 18 /min Dr. Bassam Johnson Work Phone: 1(850)564-856504 [place] [address] 11-16-2022 19:03-0400 Body mass index (BMI) [Ratio] 28.4 kg/m2 Dr. Bassam Johnson Work Phone: 9(115)748-496004 [place] [address] 11-16-2022 19:03-0400 Body temperature 97.5 [degF] Dr. Bassam Johnson Work Phone: 0(796)696-102904 [place] [address] 11-16-2022 19:03-0400 Body weight 66.[address] Bassam Johnson Work Phone: 8(741)966-552104 [place] [address] 11-16-2022 19:03-0400 Diastolic blood pressure 78 mm[Hg] Dr. Bassam Johnson Work Phone: 8(322)102-567304 [place] [address] 11-16-2022 19:03-0400 Heart rate 70 /min Dr. Bassam Johnson Work Phone: 1(028)705-685304 [place] [address] 11-16-2022 19:03-0400 SaO2% (BldA) [Mass fraction] 98 % Dr. Bassam Johnson Work Phone: 0(369)955-660504 [place] [address] 11-16-2022 19:03-0400 Systolic blood pressure 156 mm[Hg] Dr. Bassam Johnson Work Phone: 0(311)043-723004 [place] [address] 09-22-2022 10:34-0400 Body height 152.[address] Bassam Johnson Work Phone: 2(666)132-521304 [place] [address] 09-22-2022 10:34-0400 Body mass index (BMI) [Ratio] 27.3 kg/m2 Dr. Bassam Johnson Work Phone: 3(974)084-224304 [place] [address] 09-22-2022 10:34-0400 Body temperature 97.5 [degF] Dr. Bassam Johnson Work Phone: 1(713)049-739404 [place] [address] 09-22-2022 10:34-0400 Body weight 63.[address] Bassam Johnson Work Phone: 7(472)337-134804 [place] [address] 09-22-2022 10:34-0400 Diastolic blood pressure 92 mm[Hg] Dr. Bassam Johnson Work Phone: 5(104)668-189732 [place] [address] 09-22-2022 10:34-0400 Heart rate 67 /min Dr. Bassam Johnson Work Phone: 8(851)624-691304 [place] [address] 09-22-2022 10:34-0400 Respiratory rate 16 /min Dr. Bassam Johnson Work Phone: 0(063)430-154204 [place] [address] 09-22-2022 10:34-0400 SaO2% (BldA) [Mass fraction] 97 % Dr. Bassam Johnson Work Phone: 9(896)504-537204 [place] [address] 09-22-2022 10:34-0400 Systolic blood pressure 133 mm[Hg] Dr. Bassam Johnson Work Phone: 5(023)660-277004 [place] [address] 09-15-2022 13:11-0400 Body height 154.[address] Bassam Johnson Work Phone: 1(756)081-172504 [place] [address] 09-15-2022 13:11-0400 Body mass index (BMI) [Ratio] 26.6 kg/m2 Dr. Bassam Johnson Work Phone: 4(045)135-874904 [place] [address] 09-15-2022 13:11-0400 Body weight 64.[address] Bassam Johnson Work Phone: 3(126)909-033704 [place] [address] 09-15-2022 13:11-0400 Diastolic blood pressure 88 mm[Hg] Dr. Bassam Johnson Work Phone: 6(104)636-709704 [place] [address] 09-15-2022 13:11-0400 Systolic blood pressure 153 mm[Hg] Dr. Bassam Johnson Work Phone: 6(749)836-822104 [place] [address] 12-28-2021 13:56-0400 Body height 154.[address] Bassam Johnson Work Phone: 5(436)300-268004 [place] [address] Work Phone: 12-28-2021 13:56-0400 Body mass index (BMI) [Ratio] 26.1 kg/m2 Dr. Bassam Johnson Work Phone: 8(884)525-279232 [place] [address] Work Phone: 12-28-2021 13:56-0400 Body weight 62.[address] Bassam Johnson Work Phone: [facility] Work Phone: 11-24-2021 14:16-0400 Body temperature 98.9 [degF] Dr. Bassam Johnson Work Phone: [facility] Work Phone: 11-24-2021 14:16-0400 Diastolic blood pressure 93 mm[Hg] Dr. Bassam Johnson Work Phone: [facility] Work Phone: 11-24-2021 14:16-0400 Heart rate 63 /min Dr. Bassam Johnson Work Phone: [facility] Work Phone: 11-24-2021 14:16-0400 Respiratory rate 17 /min Dr. Bassam Johnson Work Phone: [facility] Work Phone: 11-24-2021 14:16-0400 SaO2% (BldA) [Mass fraction] 99 % Dr. Bassam Johnson Work Phone: [facility] Work Phone: 11-24-2021 14:16-0400 Systolic blood pressure 141 mm[Hg] Dr. Bassam Johnson Work Phone: [facility] Work Phone: 11-23-2021 15:52-0400 Body height 154.[address] Bassam Johnson Work Phone: [facility] Work Phone: 11-23-2021 15:52-0400 Body weight 63.[address] Bassam Johnson Work Phone: [facility] Work Phone: 11-23-2021 01:59-0400 Body temperature 97.7 [degF] Dr. Bassam Johnson Work Phone: [facility] Work Phone: 11-23-2021 01:59-0400 Diastolic blood pressure 70 mm[Hg] Dr. Bassam Johnson Work Phone: [facility] Work Phone: 11-23-2021 01:59-0400 Heart rate 71 /min Dr. Bassam Johnson Work Phone: [facility] Work Phone: 11-23-2021 01:59-0400 Respiratory rate 16 /min Dr. Bassam Johnson Work Phone: [facility] Work Phone: 11-23-2021 01:59-0400 SaO2% (BldA) [Mass fraction] 97 % Dr. Bassam Johnson Work Phone: [facility] Work Phone: 11-23-2021 01:59-0400 Systolic blood pressure 142 mm[Hg] Dr. Bassam Johnson Work Phone: [facility] Work Phone: 11-23-2021 01:57-0400 Body height 154.[address] Bassam Johnson Work Phone: [facility] Work Phone: 11-23-2021 01:57-0400 Body mass index (BMI) [Ratio] 26.6 kg/m2 Dr. Bassam Johnson Work Phone: [facility] Work Phone: 11-23-2021 01:57-0400 Body weight 63.[address] Bassam Johnson Work Phone: [facility] Work Phone: 09-02-2021 13:30-0500 Body mass index (BMI) [Ratio] 27.7 kg/m2 Dr. Bassam Johnson Work Phone: [facility] Work Phone: 09-02-2021 13:30-0500 Body temperature 97.4 [degF] Dr. Bassam Johnson Work Phone: [facility] Work Phone: 09-02-2021 13:30-0500 Body weight 64.[address] Bassam Johnson Work Phone: [facility] Work Phone: 09-02-2021 13:30-0500 Diastolic blood pressure 65 mm[Hg] Dr. Bassam Johnson Work Phone: [facility] Work Phone: 09-02-2021 13:30-0500 Heart rate 77 /min Dr. Bassam Johnson Work Phone: [facility] Work Phone: 09-02-2021 13:30-0500 Respiratory rate 17 /min Dr. Bassam Johnson Work Phone: [facility] Work Phone: 09-02-2021 13:30-0500 SaO2% (BldA) [Mass fraction] 97 % Dr. Bassam Johnson Work Phone: [facility] Work Phone: 09-02-2021 13:30-0500 Systolic blood pressure 143 mm[Hg] Dr. Bassam Johnson Work Phone: [facility] Work Phone: 09-02-2021 12:30-0500 Body mass index (BMI) [Ratio] 27.7 kg/m2 Dr. Bassam Johnson Work Phone: [facility] Work Phone: 09-02-2021 12:30-0500 Body temperature 97.4 [degF] Dr. Bassam Johnson Work Phone: [facility] Work Phone: 09-02-2021 12:30-0500 Body weight 64.[address] Bassam Johnson Work Phone: [facility] Work Phone: 09-02-2021 12:30-0500 Diastolic blood pressure 65 mm[Hg] Dr. Bassam Johnson Work Phone: [facility] Work Phone: 09-02-2021 12:30-0500 Heart rate 77 /min Dr. Bassam Johnson Work Phone: [facility] Work Phone: 09-02-2021 12:30-0500 Respiratory rate 17 /min Dr. Bassam Johnson Work Phone: [facility] Work Phone: 09-02-2021 12:30-0500 SaO2% (BldA) [Mass fraction] 97 % Dr. Bassam Johnson Work Phone: [facility] Work Phone: 09-02-2021 12:30-0500 Systolic blood pressure 143 mm[Hg] Dr. Bassam Johnson Work Phone: [facility] Work Phone: 08-26-2021 10:40-0500 Body mass index (BMI) [Ratio] 26.6 kg/m2 Dr. Bassam Johnson Work Phone: [facility] Work Phone: 08-26-2021 10:40-0500 Body weight 63.[address] Bassam Johnson Work Phone: [facility] Work Phone: 08-26-2021 10:40-0500 Diastolic blood pressure 70 mm[Hg] Dr. Bassam Johnson Work Phone: [facility] Work Phone: 08-26-2021 10:40-0500 Systolic blood pressure 110 mm[Hg] Dr. Bassam Johnson Work Phone: [facility] Work Phone: 08-12-2021 13:43-0500 Body weight 64.[address] Bassam Johnson Work Phone: [facility] Work Phone: 08-12-2021 13:43-0500 Diastolic blood pressure 70 mm[Hg] Dr. Bassam Johnson Work Phone: [facility] Work Phone: 08-12-2021 13:43-0500 Systolic blood pressure 138 mm[Hg] Dr. Bassam Johnson Work Phone: [facility] Work Phone: 05-17-2016 13:48-0500 BMI (Body Mass Index) 29.28 kg/m2 [facility] Work Phone: 05-17-2016 13:48-0500 Body weight 70.31 kg Cathy Fry [facility] Work Phone: 05-17-2016 13:48-0500 Height 154.94 cm [facility] Work Phone: 05-17-2016 13:48-0500 Weight 70.31 kg [facility] Work Phone: Encounters Encounter Date Encounter Type Care Provider Facility Start: 01-22-2025 Evaluation and management of inpatient Dr. Yaya Little MD -[facility] Work Phone: Start: 01-22-[address] Bre Johnson DO Work Phone: -[facility] Start: 12-31-2024 Non-patient / Non-visit Dr. Debora mixon MD -[facility] Work Phone: Start: 11-18-2024 Encounter for gynecological examination (general) (routine) without abnormal findings Lore Scanlon [facility] Start: 11-18-2024 End: 11-18-[address] Lore Scanlon MD -[facility] Work Phone: Start: 11-18-2024 End: 11-18-[address] Lore Scanlon MD [facility] Start: 11-18-2024 End: 11-18-[address] Bassam Johnson DO Work Phone: [facility] Work Phone: Start: 09-30-2024 End: 09-30-[address] Bassam Johnson DO Work Phone: [facility] Work Phone: Start: 09-30-2024 End: 09-30-[address] Bassam Johnson MD -Laboratory Work Phone: Start: 09-30-2024 End: 09-30-2024 ambulatory Bassam Johnson Facility:[facility] Start: 09-16-2024 End: 09-16-[address] Bassam Johnson DO Work Phone: [facility] Work Phone: Start: 09-16-2024 End: 09-16-[address] Lore Scanlon MD -Outpatient Breast Imaging Work Phone: Start: 09-16-2024 End: 09-16-2024 ambulatory Lore Scanlon Facility:[facility] Start: 05-29-2024 Non-patient / Non-visit Dr. Loli angulo MD -[facility] Start: 05-29-2024 End: 05-29-2024 Admission to same day surgery center Dr. Loli Chan MD -Endoscopy Work Phone: Start: 05-29-2024 End: 05-29-2024 ambulatory Bassam Johnson Facility:[facility] Start: 03-31-2024 End: 03-31-2024 Emergency department patient visit Hossein North Facility:[facility] Start: 03-21-2024 End: 03-21-2024 Emergency department patient visit Jose SerranojojocoreyPatGeronimo Facility:[facility] Start: 03-11-2024 ambulatory [facility] Facility:[facility] Start: 03-11-2024 ambulatory [facility] Start: 11-06-2023 End: 11-06-[address] Bassam Johnson Work Phone: [facility] Work Phone: Start: 11-06-2023 End: 11-06-[address] Bassam Johnson Work Phone: [facility] Work Phone: Start: 10-20-2023 End: 10-20-[address] Bassam Johnson Work Phone: [facility] Start: 10-20-2023 End: 10-20-[address] Bassam Johnson Work Phone: [facility] Work Phone: Start: 09-15-2023 End: 09-15-2023 ambulatory [facility] Work Phone: Start: 09-15-2023 End: 09-15-2023 Patient encounter procedure [facility] Work Phone: Start: 05-17-2023 End: 05-17-2023 ambulatory [facility] Work Phone: Start: 05-17-2023 End: 05-17-2023 Patient encounter procedure [facility] Work Phone: Start: 04-25-2023 End: 04-25-2023 Emergency department patient visit Dr. Bassam Johnson Work Phone: [facility]-Emergency Department Work Phone: Start: 04-24-2023 End: 04-24-[address] Bassam Johnson Work Phone: [facility] Work Phone: Start: 04-24-2023 End: 04-24-[address] Bassam Johnson Work Phone: [facility] Work Phone: Start: 01-12-2023 End: 01-12-[address] Bassam Johnson Work Phone: [facility] Work Phone: Start: 01-06-2023 End: 01-06-[address] Bassam Johnson Work Phone: [facility] Work Phone: Start: 01-06-2023 End: 01-06-[address] Bassam Johnson Work Phone: [facility] Work Phone: Start: 12-22-2022 Non-patient / Non-visit Dr. Belen Johnson Work Phone: [facility] Start: 12-22-2022 End: 12-22-2022 Admission to same day surgery center Dr. Bassam Johnson Work Phone: [facility] Start: 12-22-2022 End: 12-22-[address] Bassam Johnson Work Phone: [facility] Work Phone: Start: 11-21-2022 End: 11-21-[address] Bassam Johnson Work Phone: [facility] Start: 11-16-2022 End: 11-16-2022 Emergency department patient visit Dr. Bassam Johnson Work Phone: [facility]-Emergency Department Start: 09-29-2022 End: 09-29-[address] Bassam Johnson Work Phone: [facility] Work Phone: Start: 09-29-2022 End: 09-29-[address] Bassam Johnson Work Phone: [facility]-Ultrasound, [facility] Start: 09-22-2022 End: 09-22-2022 Emergency department patient visit Dr. Bassam Johnson Work Phone: [facility]-Emergency Department Start: 09-15-2022 End: 09-15-[address] Bassam Johnson Work Phone: [facility] Start: 09-12-2022 End: 09-12-[address] Bassam Johnson Work Phone: [facility] Work Phone: Start: 09-12-2022 End: 09-12-[address] Bassam Johnson Work Phone: [facility]-Outpatient Breast [facility] Start: 12-28-2021 End: 12-28-[address] Bassam Johnson Work Phone: [facility] Start: 12-28-2021 End: 12-28-[address] Bassam Johnson Work Phone: [facility]-Laboratory, Specimen Start: 11-24-2021 Non-patient / Non-visit Dr. Belen Johnson Work Phone: [facility] Start: 11-24-2021 Non-patient / Non-visit Dr. Belen Johnson Work Phone: [facility] Start: 11-23-2021 End: 11-24-2021 Evaluation and management of inpatient Dr. Bassam Johnson Work Phone: [facility]-Medical Surgical 3 Start: 11-23-2021 Non-patient / Non-visit Dr. Belen Johnson Work Phone: [facility] Start: 11-23-2021 Non-patient / Non-visit Dr. Belen Johnson Work Phone: [facility] Start: 11-23-2021 Evaluation and management of inpatient Dr. Bassam Johnson Work Phone: [facility] 3 Start: 10-13-2021 End: 10-13-[address] Bassam Johnson Work Phone: [facility] Start: 09-08-2021 End: 09-08-[address] Bassam Johnson Work Phone: [facility]-Outpatient Breast Imaging Start: 09-02-2021 End: 09-02-[address] Bassam Johnson Work Phone: [facility] Start: 08-26-2021 Patient encounter status Dr. West Johnson Work Phone: [facility] Start: 08-26-2021 End: 08-26-[address] Bassam Johnson Work Phone: [facility] Start: 08-26-2021 End: 08-26-[address] Bassam Johnson Work Phone: [facility] Start: 08-12-2021 End: 08-12-[address] Bassam Johnson Work Phone: [facility]-Laboratory, Specimen Start: 08-12-2021 End: 08-12-[address] Bassam Johnson Work Phone: [facility] Procedures Date Procedure Procedure Detail Performing Clinician Start: 01-22-2025 Computed tomography of abdomen and pelvis with intravenous contrast Dr. Bassam Johnson DO Work Phone: Start: 01-21-[address] Bassam Johnson DO Work Phone: Start: 09-16-2024 Screening mammography Lupe Johnson DO [...] and pelvis with intravenous contrast Dr. Bassam oJhnson Work Phone: Start: 10-13-[address] [...] Treatment Date Care Activity Detail Author Start: 01-22-2025 Hospital admission, emergency, from emergency room, medical nature [facility] Start: 05-29-2024 Colonoscopy w/biopsy single/multiple COLONOSCOPY AND BIOPSY [facility] Start: 05-29-2024 Patient discharge [facility] Start: 04-25-2023 [facility] Start: 12-22-2022 Anesthesia hernia repair lower abdomen nos ANESTH REPAIR OF HERNIA [facility] Start: 12-22-2022 RPR AA HRN 1ST < 3 CM RDC RPR AA HRN 1ST < 3 CM RDC [facility] Start: 12-22-2022 Patient discharge [facility] Start: 11-24-2021 Patient discharge [facility] Work Phone: Start: 11-24-2021 Following clinical pathway protocol [facility] Work Phone: Start: 11-23-2021 Admission procedure [facility] Work Phone: Start: 11-23-2021 Nil by mouth [facility] Work Phone: Start: 11-23-2021 Following clinical pathway protocol [facility] Work Phone: Start: 11-23-2021 Application of intermittent pneumatic compression device [facility] Work Phone: Start: 11-23-2021 Assessment of risk of venous thromboembolism [facility] Work Phone: Start: 11-23-2021 Insertion of catheter into peripheral vein [facility] Work Phone: Start: 11-23-2021 Providing care according to standard [facility] Work Phone: Start: 11-23-2021 Provision of activity privileges [facility] Work Phone: Start: 11-23-2021 Referral to general surgeon [facility] Work Phone: Start: 11-23-2021 [facility] Work Phone: Start: 11-23-2021 Admission procedure [facility] Work Phone: Start: 08-26-2021 Patient referral [facility] Work Phone: Start: 05-04-2017 End: 05-04-2017 Appointment Appointment [facility] Work Phone: Start: 04-04-2017 End: 04-04-2017 Appointment Appointment [facility] Work Phone: Start: 03-22-2017 End: 03-22-2017 Appointment Appointment [facility] Work Phone: Start: 03-07-2017 End: 03-07-2017 Appointment Appointment [facility] Work Phone: Start: 02-07-2017 End: 02-07-2017 Appointment Appointment [facility] Work Phone: Start: 12-30-2016 End: 12-30-2016 Appointment Appointment [facility] Work Phone: Start: 11-08-2016 End: 11-08-2016 EMG EMG [facility] Work Phone: Start: 11-08-2016 End: 11-08-2016 Nerve Conduction Nerve Conduction [facility] Work Phone: Start: 11-08-2016 End: 11-08-2016 Appointment Appointment [facility] Work Phone: Start: 11-08-2016 End: 11-08-2016 EMG EMG [facility] Work Phone: Start: 11-08-2016 End: 11-08-2016 Nerve Conduction Nerve Conduction [facility] Work Phone: Start: 05-25-2016 End: 05-25-2016 Occupational Therapy General [facility], [address] [place] [address], [address] [facility] Work Phone: Start: 05-25-2016 End: 05-25-2016 Occupational Therapy General Occupational Therapy [facility], [address] [place] [address], [address] [facility] Work Phone: Start: 05-17-2016 End: 05-17-2016 Radex wrist complete minimum 3 views X-Ray, Wrist [facility] Work Phone: Start: 05-17-2016 End: 05-17-2016 X-ray exam of wrist X-Ray, Wrist [facility] Work Phone: DXA Bone [Mass/Area] Bone density [facility] Patient Education [facility] Work Phone: Patient referral [facility] Work Phone: US Pelvis [facility] US Pelvis transvaginal [facility] Immunizations Immunization Date Immunization Notes Care Provider Fa cility 05-13-2021 Covid (Pfizer) Dr. Bassam gu Work Phone: [facility] 04-14-2021 Influenza, high dose seasonal Dr. Bassam Johnson DO Work Phone: [facility] 04-14-2021 influenza, high dose seasonal, preservative-free Dr. Bassam Johnson Work Phone: [facility] 09-29-2020 Covid (Pfizer) Dr. Bassam gu Work Phone: [facility] 09-08-2020 Covid (Pfizer) Dr. Bassam gu Work Phone: [facility] 06-02-[address] Bassam Johnson Work Phone: [facility] Payers Date Payer Category Payer Self-pay [id number] 2014 Medicare [id number] 2014 Unknown [id number] 2014 Unknown [id number] Unknown [id number] 2.16.8 [id number] Unknown [id number] 2.16.8 [id number] Unknown [id number] 2.16.8 [id number] Unknown [id number] 2.16.8 [id number] Unknown [id number] 2.16.8 [id number] Unknown [id number] 2.16.8 [id number] Unknown [id number] 2.16.8 [id number] Unknown [id number] 2.16.8 [id number] Unknown [id number] 2.16.8 [id number] Social History Date Type Detail Facility Start: 11-22-2021 End: 04-25-2023 Tobacco smoking status NHIS Unknown if ever smoked [facility] Start: 09-01-2019 None [facility] Start: 09-01-2019 Spouse/ Signif icant Other [facility] Start: 09-01-2019 Non-smoker [facility] Start: 1950 Sex Assigned At Female [facility] Start: 05-29-2024 End: 01-21-2025 Tobacco smoking status NHIS Never smoked tobacco (finding) [facility] Start: 09-25-2024 End: 10-02-2024 Sex Female (finding) [facility] NEGATED: Highlighted row [facility] Medical Equipment Procedure Code Equipment Code Equipment Origin al Text Equipment Identifier Dates Repair, hernia, umbilical, using mesh ([id number]) Extra-gynaecologic al surgical mesh, composite-polymer [id number] 01 FDA Start: 12-22-2022 Goals Date Patient Goal Desired Activity /State Functional Status Date Assessment Result Facility 12-22-2022 Functional status Ambulates [facility] Work Phone: 11-24-2021 Functional status Ambulates [facility] Work Phone: Mental Status Date Assessment Result Facility 05-29-2024 Cognitive function Touch/Shaking [facility] Work Phone: 04-25-2023 Cognitive function Level Of Cons ciousness Awake;Alert;Appropriate;Follow s Commands [facility] Work Phone: 12-22-2022 Cognitive function Level Of Consciousness Sedated [facility] Work Phone: 12-22-2022 Cognitive function Patient Orien tation Person;Place;Time [facility] Work Phone: 09-22-2022 Cognitive function Level Of Cons ciousness Awake;Alert;Appropriate;Follow s Commands [facility] Work Phone: 11-24-2021 Cognitive function Voice/Name [facility] Work Phone: Clinical Notes 12-22-2022 to 01-22-2025 Note Date & Type Note Facility 01-22-2025 Radiology Diagnostic study note [facility] [address] [place] [address] Abdomen/Pelvis W IV Cont ONLY MR#: [id number] Acct: [id number] Name: ABY TELLES Rep #: [id number] : 1950 F 74 From: Margoth Garcia MD PCP: Dr. Bassam Johnson MD Status: PRE E R Study:Abdomen/Pelvis W IV Cont ONLY Date of E xam: 01/22/25 Exam# [id number] Ordering Dr: Aye Hackett DO PROCEDURE: ABDOMEN/PELVIS W IV CONT ONLY 01/22/2025 REASON FOR EXAM: ABD PAIN / ? INCARCERATED UMBILICAL HERNIA TECHNIQUE: ABDOMEN/PELVIS W IV CONT ONLY Coronal and Sagittal reconstruction series were provided. CONTRAST: Isovue 370 VOLUME: 75 mL One or more dose reduction techniques were used (e.g., Automated exposure control, adjustment of the mA and/or kV according to patient size, use of iterative reconstruction technique. RADIATION DOSE SUMMARY: CTDlvol: 19 mGy DLP: 821 mGycm COMPARISON: 11/23/2021 FINDINGS: Under aerated lung bases. Normal heart size. Diffuse hepatic steatosis. Cholelithiasis. Unremarkable pancreas, spleen, adrenal glands. Bilateral simple renal cysts. No hydronephrosis or ureteral stones. Normal bladder. Normal uterus and right ovary. There is a 3.5 cm left ovarian cyst, stable, favoring benign etiology. No retroperitoneal or pelvic adenopathy. No free air. Nondistended stomach and proximal bowel. There are dilated mid abdominal small bowel loops. Nondistended distal small bowel. Normal appendix. Normal caliber large bowel. A few diverticula. No acute large bowel lumbar spine degeneration. No acute abdominal wall findings. CT/Abdomen/Pelvis W IV Cont ONLY IMPRESSION: Findings suggest a mid abdominal early/partial small bowel obstruction. Consider small bowel follow-through examination for further assessment. No acute findings otherwise noted. Reading Location: [place] [address] CC: Dr. Bassam Johnson MD; Deon Hackett DO ~ Boiler/Chiller Technician: Signed [facility] 01-22-2025 Discharge summary [facility] 11-18-2024 Evaluation note Diagnosis Onset Date Resolution Encounter for routine gynecological examination noneactive November 18, 2024 2:10pm [facility] Work Phone: 1(332) 973-322505-19-2025 Progress [facility] [address], [address] [place] [address] OFFICE VISIT Date of Service: 11/18/24 MR#: [id number] Acct: [id number] Name: ABY TELLES Rep #: [id number] : 1950 Provider: Dr. Elia Scanlon MD Age/Sex: 74/F [place] [facility] [place]: Signed Intake Vital Signs 05/29/24 06:39 11/18/24 14:13 11/18/24 14:29 Height 5 ft 1 in 5 ft 1 in Weight: 148 lb 6 oz BMI 28.0 BP 166/74 H 145/76 H Intake Visit Reasons: Annual ([employer]) Filter Washer Required: No Is patient in pain?: No [...] DAILY PRN PRN Anxiety 01/24/17 11/18/24 History jmmfpdtzezvl-Kw-iuuf-minerals 1 ea PO DAILY supplement 01/24/17 11/18/24 [...] 10 mg PO DAILY 05/09/2210/31 History peg 927-rsfjlzgqianz-kakbsprk 1 1 drp EACH EYE BID PRN [...] hematuria, hot flashes, nipple discharge, pelvic pain, prolapsesymptoms, urinary frequency, urinary incontinence, urinaryurgency, vaginal discharge, [...] abnormal findings ABSENT Qualified Code(s): Z01.419 - Encounterfor gynecological examination (general) (routine) without abnormal findings [...] maintenance exam or sooner if needed. 11/18/24 150Gary mi MD> Date _ Lore Scanlon MD Cosigner Signature: Date (if applicable) CC: ~ [facility]05-19-2025 Progress note Author Lore Scanlon [facility] Note Date/Time November 18, 2024 3:08p [facility] [address], [address] [place] [address] OFFICE VISIT Date of Service: 11/18/24 MR#: [id number] Acct: [id number] Name: ABY TELLES Rep #: [id number] : 1950 Provider: Dr. Elia Scanlon MD Age/Sex: 74/F [place] [facility] [place]: Signed Intake Vital Signs 05/29/24 06:39 11/18/24 14:13 11/18/24 14:29 Height 5 ft 1 in 5 ft 1 in Weight: 148 lb 6 oz BMI 28.0 BP 166/74 H 145/76 H Intake Visit Reasons: Annual ([employer]) Filter Washer Required: No Is patient in pain?: No [...] DAILY PRN PRN Anxiety 01/24/17 11/18/24 History qfshofhdyame-Mw-lfkj-minerals 1 ea PO DAILY supplement 01/24/17 11/18/24 [...] 10 mg PO DAILY 05/09/2210/31 History peg 297-kvbkoigsqhvv-vceddyfl 1 1 drp EACH EYE BID PRN [...] acute distress, well developed and well groomed [facility] Head: normal to inspection and normocephalic Ears: [...] mi MD> Date _ Lore Scanlon MD [facility] Signature: Date (if applicable) CC: ~ [facility] Work Phone: 1(849) 907-363511-27-2024 Evaluation note* Diagnosis Onset Date Resolution Status Admit Date Encounter for screening for malignant neoplasm of colon acute [facility] 2023 6:12[facility] Work Phone: 1(125) 830-149011-27-2024 [facility] Medical Records Department [address] [place] [address] History Physical Exam 05/29/24 0655 MR#: [id number] Acct: [id number] Name: ABY TELLES Rep #: [id number] : 1950 73 From: Loli Chan MD PCP: Dr. Bassam Johnson MD Status:[facility] Location: [place] [address] HPI - General General Date of Service: 05/29/24 HPI Narrative ABY TELLES, is a 73 F who presents for screening colonoscopy. Patient never had previous colonoscopy. Patient denies any family history of colon cancer. Patient denies any chronic abdominal pain/nausea/vomiting/reflux. Patient has bowel movements daily denies any blood. [facility] Medical History Wears partial dentures Wears glasses [...] DAILY PRN PRN Anxiety 01/24/17 05/29/24 History btnjuhfytpgo-Et-xdnu-minerals 1 ea PO DAILY supplement 01/24/17 05/28/24 [...] mg PO DAILY 05/09/22 05/29/24 History peg 403-lbwcomftmbqh-zienykqi 1 1 drp EACH EYE BID PRN [...] of Breath: No Hoars (more content not included)...[facility]06-22-[address] Chan [facility] December 22, 2022 8:10am Note Date/Time December 22, 2022 8:09 am [facility] Medical Records Department [address] [place] [address] Instructions for Home/Discharge Instructions 12/22/2209 MR#: [id number] Acct: [id number] Name: ABY TELLES Rep #:[id number] : 1950 72 From: Loli Chan MD [...] weeks; after 5 PM and on call [phone] with any concerns. Test Results: Test results [...] 1,000 UNIT capsule 1,000 unit PO 0800,1200 tfscafjsxsjh-Gs-fsnb-minerals 1 EACH tablet 1 ea PO DAILY [...] CC: Dr. Bassam Johnson MD ~ Signed [facility] Work Phone: 1(285) 411-179506-22-2023 History and physical note Author Dr. Cahn [facility] December 22, 2022 7:12am Note Date/Time December 22, 2022 7:08 am [facility] Medical Records Department [address] [place] [address] H&P Exam - Surgical 12/22/22 0705 MR#: [id number] Acct: [id number] Name: ABY TELLES Rep #:[id number] : 1950 72 From: Loli Chan MD PCP: Dr. Bassam Johnson MD Status:REG S [place] Location: [place] [address] HPI - General General Date of Service: [...] may be time to have it repaired. [facility] Medical History (Updated 12/14/22 @ 14:29 by [...] PRN Anxiety 01/24/17 [History Last Taken 12/22/22] nyylvjcdufcx-Kx-vnkn-minerals 1 ea PO DAILY supplement 01/24/17 [History [...] DAILY 12/14/22 [History Last Taken Unknown] peg 205-wjsyzbpswlfe-ypswzqya 1 %-0.2 %-0.2 % eye drops (Dry [...] questions were answered. Loli Chan M.D. Pager: [phone] [facility] [address] [place] [address], [address] [place] [address] Office: [phone] 12/22/2212 <Electronically signed by Loli Chan MD> Cosigner Signature (if applicable): CC: Dr. Bassam Johnson MD; Dr. Loli Chan MD~ Signed [facility] Work Phone: 1(720) 151-770206-22-2023 [facility] Author Deon Hackett [facility] Note Date/Time January 22, 2025 2:19 am [facility] Medical Records Department [address] [place] [address] Emergency Department Summary 01/22/25 MR#: [id number] Acct: [id number] Name: ABY TELLES Rep #:[id number] : 1950 74 From: Deon Hackett DO PCP: Dr. Bassam Johnson MD Status:ADM I NO Location: [place] SS315-2 HPI History of Present Illness Chief Complaint: Abd Pain Informant: patient and spouse/S.O. Narrative Narrative: Patient is a 74-year-old female with past medical history of hypertension and interstitial cystitis as well as previous umbilical hernia fixed with mesh in 2022. She states that she always has some lower abdominal discomfort secondary to her interstitial cystitis. However around 5 or 6 PM today after eating dinner she felt the pain in the mid upper abdomen. She states that there has been no associated vomiting diarrhea or constipation. However the pain has beenpersistent since its onset. She has concerned that this could be related to herprevious abdominal surgery and secondary to this comes in for evaluation. [facility] Medical History Wears partial dentures Wears glasses Post-menopausal Anxiety Arthritis Dietary restriction Gastric reflux Non-smoker History of edema H/O vaginal delivery Cystitis cataract surgery (~2015) Back pain Neck pain Difficulty balancing Hay fever Seasonal allergies Heart disease Shoulder pain Hypertension Home Medications ?Medication ?Instructions ?Recorded ?Last Taken ?Type calcium carbonate 1,200 mg PO DAILY supplement 01/24/17 05/28/24 History cholecalciferol (vitamin D3) 25 2,000 unit PO DAILY nur pplement 01/24/17 05/28/24 History mcg (1,000 unit) capsule cinnamon bark 500 mg capsule 1,000 mg PO 0800,1200 sup plement 01/24/17 05/28/24 History lorazepam 0.5 mg tablet 0.5 - 1 mg PO DAILY PRN PRN Anxiety 01/24/17 01/21/25 20:30 History qzxdmvfqstue-Jn-uuvd-minerals 1 ea PO DAILY supplement 01/24/17 05/28/24 History red yeast rice 600 mg capsule 600 mg PO 0800,1200 supp lement 01/24/17 05/28/24 History fluticasone propionate 50 1 spray intranasal DAILY all ergies 08/25/20 11/22/21 History mcg/actuation nasal spray,suspension famotidine 20 mg tablet (Pepcid) 20 mg PO DAILY PRN GE RD 08/12/21 01/21/25 12:00 History ascorbic acid (vitamin C) 1,000 mg 1 g PO DAILY supple ment 08/26/21 05/28/24 History tablet amlodipine 5 mg tablet 5 mg PO DAILY hypertension 1 07/09/21 05/29/24 History lisinopril 10 mg tablet 10 mg PO DAILY 05/09/22 11/01/23 History peg 599-fayjrhsmlnbm-rmbqpzgb 1 1 drp EACH EYE BID PRN Dry Eyes 12/14/22 05/28/24 History %-0.2 %-0.2 % eye drops (Dry Eye Relief) acetaminophen 500 mg tablet 1,000 mg PO BID 03/11/24 0 01/21/25 19:10 History (Tylenol Extra Strength) dexamethasone 0.1 % eye 1 drp ophthalmic (eye) BID P RN 03/11/24 Unknown History drops,suspension itching loratadine 10 mg tablet (Claritin) 10 mg PO DAILY 03/2605/28/24 History amlodipine 2.5 mg tablet 2.5 mg PO DAILY 03/31/24 History ferrous sulfate 325 mg (65 mg 325 mg PO DAILY 05/27/24 Unknown History iron) tablet (Iron (ferrous sulfate)) mecobalamin (vitamin B12) 500 mcg 500 mcg PO DAILY Unknown History chewable tablet Allergy/AdvReac Type Severity Reaction Status Date / Time cyclobenzaprine Allergy Mild other Verified 01/21/25 21:46 montelukast (From Singulair) Allergy PT UNSURE Verified 01/21/25 21:46 OF REACTION latex AdvReac irritation Verified 01/21/25 21:46 oxycodone (From Percocet) AdvReac DIZZY,LIGHT Verified 01/21/25 21:46 HEADNESS Family History Other Diabetes Heart disease Hypertension Surgical History History of umbilical hernia repair (~12/2022) Hx of bilateral cataract extraction History of carpal tunnel release of both wrists (~2016) Social History household members: spouse current occupational [...] Denies chills or fever(s) Eyes Eyes: Denies change in vision ENT ENT ED: Denies sore throat Cardiovascular Cardiovascular: Denies chest pain Respiratory/Chest Respiratory/Chest: Denies cough or dyspnea Gastrointestinal Gastrointestinal: Reports abdominal pain; Denies constipation, diarrhea, nausea or vomiting Musculoskeletal Musculoskeletal: Denies back pain Integumentary Denies rash Neurologic Neurologic: Denies headache(s) Hematologic/Lymphatic Hematologic/Lymphatic: Denies easy bleeding or easy bruising EXAM Physical Exam Const Vital Signs: 01/21/25 21:42 01/21/25 23:35 01/22/25 01:00 Temperature 97.8 F Temperature Source Oral Pulse Rate 75 60 55 L Respiratory Rate 17 18 18 Blood Pressure 163/62 H 144/72 H 143/56 H Blood Pressure Mean 95 96 85 Pulse Ox 97 100 98 Oxygen Delivery Method Room Air Room Air Room Air 01/22/25 01:56 Temperature 98 F Temperature Source Pulse Rate 61 Respiratory Rate 16 Blood Pressure 143/63 H Blood Pressure Mean 89 Pulse Ox 100 Oxygen Delivery Method Positive well nourished, well developed and obese General Appearance ED: well developed; Negative for pallor Nutritional Appearance: obese HEENT HEENT Narrative: Normocephalic atraumatic No tongue or lip swelling no oral lesions no airway edema or compromise; no secondary findings in the posterior pharynx to suggest infection Eyes PERRL and EOMs intact bilaterally General Eye ED: Negative for scleral icterus Neck supple Neck Narrative: No nuchal rigidity or meningeal signs Resp normal respiratory effort and clear to auscultation bilaterally Cardio regular rate and regular rhythm Rate: other Other Details: Radial and carotid pulses are equal and symmetric GI non-distended GI Narrative: Abdomen is soft and nondistended with normal active bowel sounds. There is a small hernia/scar tissue noted at the umbilicus. There is pain with palpation at this site. No voluntary guarding or rigidity. No pulsatile mass. No increased tympany. No peritoneal signs Auscultation: normoactive bowel sounds Palpation: soft Extremity normal to inspection Neuro oriented x3, CN's II-XII intact bilaterally and no sensory deficits noted Sensorium / Orientation: alert Motor Exam: strength 5/5 throughout Psych mental status grossly normal Skin no rashes or lesions noted General Skin Exam: Negative for jaundice or pallor MDM MDM MDM Narrative Medical decision making narrative: Patient presented to the ER hypertensive but otherwise with stable vitals and does have a past medical history of this. With her history of nontraumatic sudden onset mid abdominal pain with history of previous hernia repair there is concern for potential intestinal incarceration versus small bowel obstruction versus perforation. Secondary to this basic labs were obtained with a CT scan with IV contrast. Patient's white count is elevated at 13.4 but otherwise thereare no clinically significant findings such as elevation of the lipase to suggest pancreatitis. CT scan showed questionable early/partial small bowel obstruction. Secondary to this the case was discussed with Dr. Little/general surgery. He recommends admission at this time so a small bowel follow-through can be completed in the morning to ensure there is or is not a developing obstruction. This plan of care was discussed with the patient who is agreeable to it and therefore should be admitted to his service for continued care History & Record Review Discussion w/independent historian: Patient and Significant other Lab Data Attestation: I reviewed the patient's lab results. Labs: Laboratory Results - last 24 hr 01/21/25 01/22/25 22:55 00:19 WBC 13.4 H RBC 3.64 L Hgb 11.8 L Hct 33.6 L MCV 92.3 MCH 32.4 H MCHC 35.1 RDW Std Deviation 45.1 H RDW Coeff of Clay 13.3 Plt Count 384 MPV 8.9 Immature Gran % (Auto) 0.400 Neut % (Auto) 66.7 Lymph % (Auto) 22.6 [place] % (Auto) 7.0 Eos % (Auto) 2.4 Baso % (Auto) 0.9 Absolute Neuts (auto) 8.9 H Absolute Lymphs (auto) 3.02 Nucleated RBC % 0 Sodium 129 L Potassium 4.2 Chloride 94 L Carbon Dioxide 21.0 Anion Gap 14 BUN 23 H Creatinine 1.37 H Estim Creat Clear Calc 31.10 L Est GFR (MDRD) Non-Af 40 L BUN/Creatinine Ratio 16.5 Glucose 112 H Lactic Acid 1.6 Calcium 9.4 Total Bilirubin 0.18 AST 22 ALT 20 Alkaline Phosphatase 48 Total Protein 7.1 Albumin 4.1 Globulin 3.0 Albumin/Globulin Ratio 1.4 Lipase 62 Radiography Diagnostic Testing: Clinical Impression(s) from Imaging Studies Abdomen/Pelvis CT 01/22/25 23:47 IMPRESSION: Findings suggest a mid abdominal early/partial small bowel obstruction. Consider small bowel follow-through examination for further assessment. No acute findings otherwise noted. Reading Location: [place] [id number] Management Discussion w/another healthcare provider: [employer] Discharge Plan Dx/Rx/DC Orders Clinical Impression: Partial small bowel obstruction, Interstitial cystitis, Hypertension Disposition Disposition: Acute Care Hospital [facility] What to do if you have Problems For any increased pain, shortness of breath, bleeding, nausea or vomiting, chestpain, or any unexpected problems, contact your Primary Care Provider. Call [facility] ([phone]) or report to the closest Emergency Room. Call 911 if necessary. 01/22/25218 <Electronically signed by Deon Hackett DO> Cosigner Signature (if applicable): CC: Dr. Bassam Johnson MD ~ Signed [facility] Work Phone: evaluation note* Diagnosis Onset Date Resolution Status Atypical mole acute [id number] acute Left ovarian cyst acute Umbilical hernia acute Umbilical hernia acute Abdominal pain, epigastric a cute Hernia, umbilical acute Partial obstruction of small intestine acute [facility] Work Phone: evaluation note* Diagnosis Onset Date Resolution Status Umbilical hernia acute Hernia, umbilical acute Abdominal pain, epigastric r esolved Partial obstruction of small intestine resolved Urinary tract infection none active [facility] Work Phone: evaluation note* Diagnosis Onset Date Resolution Status Encounter for routine gynecological examination noneactive [facility] Work Phone: evaluation note* Diagnosis Onset Date Resolution Status Encounter for routine gynecological examination noneactive Umbilical hernia acute [facility] Work Phone: evaluation note* Diagnosis Onset Date Resolution Status History of umbilical hernia repair 2022 acute [facility] Work Phone: evaluation noteNo assessment information available [facility] Work Phone: evaluation note* Diagnosis Onset Date Resolution Status Cystitis acute [id number] acute Encounter for routine gynecological examination noneactive [facility] Work Phone: Evaluation note* Diagnosis Onset Date Resolution Status Admit Date Encounter for routine gynecological examination noneactive November 182024 2:10pm [facility] Work Phone: Reason for referral (narrative)No reason for referral [facility] Work [facility]: Chief Complaint and Reason for Visit Chief Complaint Admit Date Annual ([employer]) November 18, 2024 2:10p m PARTIAL SMALL BOWEL OBSTRUCTION December 2:05am Reason for Visit Admit Date Encounter for routine gynecological exam ination November 18, 2024 2:10pm Chief Complaint possible prolapse or infection/ annual sched. 08/26 est annual, last seen 08/25/20 Umbilical Hernia SCREENING OVERIAN CYST SMALL BOWEL OBSTRUCTION SMALL BOWEL OBSTRUCTION Reason for Visit Atypical mole [id number] Left ovarian cyst Umbilical hernia Umbilical hernia Abdominal pain, epigastric Hernia, umbilical Partial obstruction of small intestine Chief Complaint possible prolapse or infection/ annual sched. 08/26 est annual, last seen 08/25/20 Umbilical Hernia SCREENING OVERIAN CYST SMALL BOWEL OBSTRUCTION SMALL BOWEL OBSTRUCTION SMALL BOWEL OBSTRUCTION SMALL BOWEL OBSTRUCTION SMALL BOWEL OBSTRUCTION Reason for Visit Atypical mole [id number] Left ovarian cyst Umbilical hernia Umbilical hernia [...] Urinary tract infection Chief Complaint SCREENING Annual ([employer]) Reason for Visit Encounter for routin e gynecological examination Chief Complaint SCREENING Annual ([employer]) GENERAL ILLNESS Reason for Visit Encounter for routin e gynecological examination Chief Complaint SCREENING Annual ([employer]) GENERAL ILLNESS LEFT OVARIAN CYST Reason for Visit Encounter for routin e gynecological examination Chief Complaint SCREENING Annual ([employer]) GENERAL ILLNESS LEFT OVARIAN CYST BACK PAIN NAVAL HERNIA UMB HERNIA REP POSS MESH UMB HERNIA REP POSS MESH Reason for Visit Encounter for routin e gynecological examination Umbilical hernia Chief Complaint Annual ([employer]) GENERAL ILLNESS LEFT OVARIAN CYST BACK PAIN NAVAL HERNIA UMB HERNIA REP POSS MESH UMB HERNIA REP POSS MESH DYSURIA AND FREQUENCY Reason for Visit Encounter for routin e gynecological examination Umbilical hernia Chief Complaint DYSURIA AND FREQUENC Y HERNIA 12/22 GENERAL ILLNESS Reason for Visit History of umbilical hernia repair Chief Complaint FALL GENERAL ILLNESS Chief Complaint SCREENING Chief Complaint SCREENING Annual ([employer]) OVARIAN CYST LEFT SIDE Reason for Visit Cystitis [id number] Encounter for routine gynecological examination Chief Complaint Admit Date SCREENING September 16, 2024 12: 53pm Reason for Visit Admit Date Encounter for screening for malignant ne oplasm of colon May 29, 2024 6:12am Chief Complaint Admit Date SCREENING September 16, 2024 12: 53pm Annual ([employer]) November 18, 2024 2:10p m Reason for Visit Admit Date Encounter for routine gynecological exam ination November 18, 2024 2:10pm Chief Complaint Admit Date Annual ([employer]) November 18, 2024 2:10p m PARTIAL SMALL BOWEL OBSTRUCTION December 2:05am Family History Relationship Condition Age at Onset Recorded Date/T saad Not Specified Diabetes mellitus Unknown Cardiac disease Unknown Hypertension Unknown Advance Directives Advance Directive Response Recorded Date/ Time Living Will Yes November 22, 2021 1 0:44pm Power of Machine Folder Yes November 22, 2021 10:44pm Advance Directive Response Recorded Date/ Time Living Will Yes November 23, 2021 2 :15am Power of Machine Folder Yes November 23, 2021 2:15am Advance Directive Response Recorded Date/ Time Name of Medical Power of Machine Folder Ruthy Telles November 23, 2021 2:15am Living Will Yes November 23, 2021 2 :15am Power of Machine Folder Yes November 23, 2021 2:15am Advance Directive Response Recorded Date/ Time Name of Medical Power of Machine Folder HAIDER TELLES September 22, 2022 11:21am Living Will Yes September 22, 2022 11:21am Power of Machine Folder Yes September 22 11:21am Advance Directive Response Recorded Date/ Time Name of Medical Power of Machine Folder HAIDER TELLES September 22, 2022 11:21am Name of Medical Power of Machine Folder HAIDER November 16, 2022 7:42pm Name of Medical Power of Machine Folder RUTHY ZENG December 14, 2022 2:29pm Living Will Yes December 14, 2022 2:29pm Power of Machine Folder Yes December 14 2:29pm Advance Directive Response Recorded Date/ Time Name of Medical Power of Machine Folder RUTHY TELLES- April 25, 2023 4:53pm Living Will Yes April 25 4:53pm Power of Machine Folder Yes April 25, 2023 4:53pm Advance Directive Response Recorded Date/ Time Name of Medical Power of Machine Folder RUTHY TELLES- April 25, 2023 3:53pm Living Will Yes April 25 3:53pm Power of Machine Folder Yes April 25, 2023 3:53pm Advance Directive Response Recorded Date/ Time Living Will Yes April 25 4:53pm Power of Machine Folder Yes April 25, 2023 4:53pm Advance Directive Response Recorded Date/ Time Living Will Yes May 27, 2 024 10:41am Do you have a Healthcare Pow er of Machine Folder? Yes May 27, 2024 10:41am Name of Medical Power of Machine Folder JASE MENDEZ May 27, 2024 10:41am Advance Directive Response Recorded Date/ Time Do you have a Healthcare Power of Machine Folder? Yes January 21, 2025 11:33pm Summary Purpose Additional Source Comments Goals (unrecognized [...] Member Role Status Dates Dr. Bassam Johnson , DO Family Provider Active Dr. Bassam Johnson , DO Primary Care Provider Active Team Status: Inactive Member Role Status Dates Dr. Bassam Johnson , DO Primary Care Provider, Referring Provider Active Dr. Lore Scanlon MD Attending Provider Active Team Status: Inactive Member Role Status Dates Dr. Bassam Johnson , DO Primary Care Provider Active Dr. Lore Scanlon MD Attending Provider, Referr ing Provider Active Team Status: Inactive Member Role Status Dates Dr. Bassam Johnson , DO Primary Care Provider Active Dr. Saad [...] November 18, 2024 End: November 18, 2024 Team Status: Active Member Role/Relationship Status Dates Dr. Bassam Johnson DO Primary Care Provider Active Team Status: Inactive Member Role/Relationship Status Dates Dr. Bassam Johnson DO Primary Care Provider Active Start: September 30, 2024 End: September 30, 2024 Dr. Bassam Johnson DO Attending Provider Active Start: September 30, 2024 End: September 30, 2024 Dr. Bassam Johnson DO Referring Provider Active Start: September 30, 2024 End: September 30, 2024 Team Status: Inactive Member Role/Relationship Status Dates Dr. Bassam Johnson DO Primary Care Provider Active Start: November 18, 2024 End: November 18, 2024 Dr. Bassam Johnson DO Referring Provider Active Start: November 18, 2024 End: November 18, 2024 Dr. Lore Scanlon MD Attending Provider Active Start: November 18, 2024 End: November 18, 2024 Team Status: Inactive Member Role/Relationship Status Dates Dr. Bassam Johnson DO Primary Care Provider Active Start: December 31, 2024 Dr. Debora Toussaint MD Attending Provider Active Start: December 31, 2024 Team Status: Active Member Role/Relationship Status Dates Dr. Bassam Johnson DO Primary Care Provider Active Start: January 22, 2025 Dr. Deon Hackett DO Emergency Provider Active Start: January 22, 2025 Dr. Yaya Little MD Admit Provider Active Start: January 22, 2025 Dr. Yaya Little MD Attending Provider Active Start: January 22, 2025 INFORMATION SOURCE (unrecogn ized section and content) DATE CREATED AUTHOR 11/19/2024 [facility] FOR RECORDS PERTAINING TO PATIENTS WHO [...] BE BASED ON THE PRIMARY CLINICAL RECORDS. [employer] provides no warranty or guarantee of the accuracy or completeness of information in this document.
--- OUTSIDE RECORDS SUMMARY | 2025-01-22 05:13 | XMS RPT_ITS | CCD ---
Author Organization [facility] Care Team Providers Care Shop Mechanic Name Role Phone Marlys Clements Unavailable Faustin, Cathy N Unavailable Faustin, Cathy N Unavailable Faustin, Cathy N Unavailable Faustin, Cathy N Unavailable Faustin, Cathy N Unavailable Faustin, Cathy N Unavailable Marlys Clements Unavailable Faustin, Cathy N Unavailable Dr. Bassam Johnson Primary Care Provider Dr. Bassam Johnson Referring Provider Caridad BODYBUILDER, BODYBUILDER-C Tiffanie Attending Provider [phone] Dr. Lore Scanlon Attending Provider [phone] Dr. Loli Chan Attending Provider [phone] Dr. Lore Scanlon Referring Provider [phone] Dr. Keyon Mayer Emergency Provider Dr. Milo Borges Admit Provider Dr. Milo Borges Attending Provider Dr. Milo Borges Other Provider Dr. Yaya Little Attending Provider [phone] Dr. Yaya Little Other Provider Dr. Quiana Xavier Other Provider Dr. Quiana Xavier Attending Provider Alex, Dr. Banegas Primary Care Provider Dr. Quiana Xavier Referring Provider Alex, Dr. Banegas Referring Provider Dr. Lore Scanlon Attending Provider Dr. Bassam Johsnon Primary Care Provider Alex, Dr. Banegas Referring [...] Provider Dr. Lore Scanlon MD Attending Provider Dr. Lore Scanlon MD Referring Provider [phone] Alex PIÑA, Dr. Banegas Primary Care Provider [...] Provider Breana KATHLEEN, Dr. Cazares Attending Provider [phone] Dr. Deon Hackett DO Emergency Provider Anabel KATHLEEN, Dr. Javier Admit Provider [phone] Anabel KATHLEEN, Dr. Javier Attending Provider [phone] Allergies Allergy Classification Reported Allergen(s) Allergy Type Date of Onset Reaction(s) Facility (18 sources) cyclobenzaprine Drug Allergy 11-23-19 22 other [facility] (18 sources) oxyCODONE Drug Allergy 11-23-19 22 DIZZY,LIGHTHEA DNESS [facility] (4 sources) Latex Propensity to adverse reactions 05-27-20 24 irritation [facility] Comment on above: gloves (4 sources) montelukast Drug Allergy 05-27-20 24 PT UNSURE OF REACTION [facility] (1 source) cyclobenzaprine Drug Allergy 11-19-19 25 [facility] Repository (1 source) Latex Drug allergy (disorder) 11-19-19 25 [facility] Repository (1 source) montelukast Drug Allergy 11-19-19 25 [facility] Repository (1 source) oxyCODONE Drug Allergy 11-19-19 [facility] Repository Medications Current Medications Medication Drug Class(es) [...] administer into each nostril Start: 05-17-2016 FLUTICASONE OH OPIONATE 50 MCG/ACT SUSP FLUTICASONE PROPIONATE [id number] Danish De La Garza Tory glycerin 2 mg/ml / hypromellose 2 mg/ml / polyethylene glycol 400 10 mg/ml ophthalmic solution (11 sources) Non-Standardized Chemical Allergen Start: 12-14-2022 Peg 967-Fflwaskquqce-Gsxprxl n (Dry Eye Relief) 1-0.2-0.2 % Drops [...] 05-17-2016 ATIVAN 1 MG TA BS LORAZEPAM [id number] Danish Spears mecobalamin (2 sources) Start: 11-18-2024 take 1 tablet by mouth once daily Mecobalamin (Vitamin B12) 500 mcg tablet,chewable Active 500 ug PO DAILY November 18, 2024 12:00am Start: 11-18-2024 Mecobalamin (V itamin B12) 500 mcg tablet,chewable Active ug PO DAILY November 18, 2024 12:00am Uswzipqunnid-Hb-Gyxe-Mineral s (14 sources) Start: 01-24-2017 Qwxzqknkfsvr-Fx-Fwmw-Mineral s Active 1 EACH PO DAILY January 24, 2017 8:21am Start: 01-24-2017 Multivitamin-C l-Veld-Kzvmigxg Active 1 EACH PO DAILY January 23, 2017 11:00pm Start: 01-24-2017 Multivitamin-C u-Xcwf-Vrzwnhrw Active 1 EACH PO DAILY January 24, 2017 12:00am Wgbgkzybaptj-Td-Urgo-Mineral s 1 EACH tablet (4 sources) Start: 01-24-2017 take 1 tablet by mouth once daily Vsrwupvgxzpw-Pj-Ffyz-Minerals 1 EACH tablet Active 1 NMA PO DAILY January 24, 2017 12:00am supplement Start: 01-24-2017 take 1 tablet by chapis th once daily Tfqkkdifrkeb-Mh-Lxqd-Minerals 1 EACH tab let Active 1 NMA [...] Anti-inflammatory Drug Start: 05-17-2016 ASPIRIN [address] [facility] ASPIRIN [id number] Danish Spears calcium (13 sources) Phosphate Binder, Calcium Start: 05-17-2016 CALCIUM 1000 + D TABS CALCIUM CARB-CHOLECALCIFER OL TABS [id number] Danish Holli Spears Start: 05-17-2016 CALCIUM 1000 + D TABS CALCIUM CARB-CHOLECALCIFEROL TABS 96680892983 Danish Spears CALCIUM CARB-CHOLECALCIFEROL TABS (2 sources) Start: 05-17-2016 CALCIUM 1000 + D TABS CALCIUM CARB-CHOLECALCIFEROL TABS 98511289887 Danish Spears calcium citrate 1190 mg / [...] CO Q-10 200 MG CAPS COENZYME Q10 15722189603 Danish Spears Start: 05-17-2016 CO Q-10 200 MG CAPS COENZYME Q10 93055904457 Danish Spears Coenzyme X60-Rkgxpux E (14 sources) Start: 01-24-2017 End: 09-01-2019 Coenzyme S43-Knwhzaq E Disco ntinued 1 EACH PO DAILY January 24, 2017 8:21am September 01, 2019 3:07pm Start: 01-24-2017 End: 09-01-2019 Coenzyme Z13-Swbueuz E Disco ntinued 1 EACH PO DAILY January 23, 2017 11:00pm September 01, 2019 2:07pm Start: 01-24-2017 End: 09-01-2019 Coenzyme X71-Zdvmvaf E Disco ntinued 1 EACH PO DAILY January 24, 2017 12:00am September 01, 2019 3:07pm Coenzyme H37-Rnavlol E 1 EACH capsule (4 sources) Start: 01-24-2017 End: 09-01-2019 take 1 capsule by mouth once daily Coenzyme A42-Biuhaay E 1 EACH capsule Discontinued 1 NMA PO DAILY January 24, 2017 12:00am September 01, 2019 3:07pm supplement Start: 01-24-2017 End: 09-01-2019 take 1 capsule by mouth once daily Coenzyme I84-Srtigcn E 1 EACH capsule Discontinued 1 NMA [...] OIL 1000 MG CAPS OMEGA-3 FATTY ACIDS [id number] Danish Spears Start: 05-17-2016 FISH OIL 1000 MG CAPS OMEGA-3 FATTY ACIDS 98702065376 Danish De La Garza Tory fluconazole 150 [...] 19, 2022 1:00am as a single dose AVMZOBPWBPL-YPEZPDJOQ-GAX C- [place] (8 sources) Start: 05-17-2016 GLUCOSAMINE CH ONDR 500 COMPLEX CAPS FQRYCJRUNVS-QIPVHASPX-SCO C-MN 87158821730 Danish L Tory WNYAKUXRXTU-QZIGIREKE-KEY C- [place] (7 sources) Start: 05-17-2016 GLUCOSAMINE CH ONDR 500 COMPLEX CAPS EUJKKETIQIC-GJIILRGYV-FCF C-MN [id number] Danish L Tory Start: 05-17-2016 GLUCOSAMINE CH ONDR 500 COMPLEX CAPS BZPKPHGNJKE-AFHHGHPCD-GOF C-MN 66587093885 Danish L Tory hydroCHLOROthiazide 50 mg / [...] 05-17-2016 TRIAMTERENE-HC TZ 75-50 MG TABS TRIAMTERENE-HCTZ 14793187675 Danish Spears linseed oil 1000 mg oral capsule (18 sources) Start: 01-24-2017 End: 09-01-2019 Flaxseed Oil 1,000 MG capsule Discontinued 1000 mg PO 0800,1200 January 24, 2017 12:00am September 01, 2019 3:06pm supplement 24 hr loratadine 10 mg / pseudoePHEDrine sulfate 240 mg extended release oral tablet (15 sources) alpha-Adrenergic Agonist Start: 05-17-2016 CLARITIN-D 24 HOUR 10-240 MG QI06S-CFM LORATADINE-PSEUDOEPHED RINE [id number] Danish Spears Start: 05-17-2016 CLARITIN-D 24 HOUR 10-240 MG QH03L-OCW LORATADINE-PSEUDOEPHEDRINE 50231195358 Danish Spears magnesium (15 sources) Start: 05-17-2016 MAGNESIUM 400 MG TABS MAGNESIUM 08472117410 Danish Spears Start: 05-17-2016 MAGNESIUM 400 MG TABS MAGNESIUM 13900441279 Danish Spears magnesium oxide 400 mg oral [...] MULTIVITAMIN W OMEN 50+ TABS MULTIPLE VITAMINS-MINERALS 45556786727 Danish Holli Spears MULTIPLE VITAMINS-MINERALS (7 sources) Start: 05-17-2016 MULTIVITAMIN W OMEN 50+ TABS MULTIPLE VITAMINS-MINERALS 68403022004 Danish L Tory Start: 05-17-2016 MULTIVITAMIN W OMEN 50+ TABS MULTIPLE VITAMINS- MINERALS 41275092617 Danish De La Garza Tory niacin 500 [...] OIL 1000 MG CAPS OMEGA-3 FATTY ACIDS 84427959267 Danish Holli Spears Osborn-3 Fatty Acids-Fish Oil (14 sources) Start: 01-24-2017 End: 09-01-2019 Osborn-3 Fatty Acids-Fish Oil Discontinued 1 EACH PO 0800,1200 January 24, 2017 8:21am September 01, 2019 3:07pm Start: 01-24-2017 End: 09-01-2019 Osborn-3 Fatty Acids-Fish Oil Discontinued 1 EACH PO 0800,1200 January 23, 2017 11:00pm September 01, 2019 2:07pm Start: 01-24-2017 End: 09-01-2019 Osborn-3 Fatty Acids-Fish Oil Discontinued 1 EACH PO 0800,1200 January 24, 2017 12:00am September 01, 2019 3:07pm Osborn-3 Fatty Acids-Fish Oil 1 EACH capsule (4 sources) Start: 01-24-2017 End: 09-01-2019 Osborn-3 Fatty Acids-Fish Oil 1 EACH capsule Discontinued 1 NMA PO 0800,1200 January 24, 2017 12:00am September 01, 2019 3:07pm supplement Start: 01-24-2017 End: 09-01-2019 Osborn-3 Fatty Acids-Fish Oil 1 EACH capsule Discontinued [...] 05-17-2016 SELENIUM 200 M CG TABS SELENIUM 39797303815 Danish L Tory SELENIUM (5 sources) Start: 05-17-2016 SELENIUM 200 M CG TABS SELENIUM 06891635365 Danish Spears SELENIUM (2 sources) Start: 05-17-2016 SELENIUM 200 M CG TABS SELENIUM 46638494094 Danish Spears Selenium (14 sources) Start: 01-24-2017 [...] 1:26pm February 24, 2020 3:17pm vitamin a 90457 unt oral capsule (18 sources) Vitamin A Start: 01-24-2017 End: 09-01-2019 Vitamin A 10,000 UNIT capsul e Discontinued 52386 U PO MOFR January 24, 2017 12:00am [...] Lactate [Moles/Vol] 1.6 mmol/L 0.0-2.0 [place] [facility] Absolute lymphocyte countOrd ered By: ED PROVIDER on 01-21-2025 Lymphocytes Auto (Unsp spec) [#/Vol] 3.02 10*3/uL 0.83-4.51 [facility] Absolute neutrophil countOrd ered By: ED PROVIDER on 01-21-2025 Neutrophils (Bld) [#/Vol] 8.9 10*3/uL High 2.0-7.7 [facility] Anion gap in Serum or Plasma Ordered By: ED PROVIDER on 01-21-2025 Anion gap [Moles/Vol] 14 mmol/L 5-15 [facility] Automated lymphocyte count a s percentage of total leukocytesOrdered By: ED PROVIDER on 01-21-2025 Lymphocytes/100 WBC Auto (Unsp spec) 22.6 % 19-41 [facility] BUN/creatinine ratioOrdered By: ED PROVIDER on 01-21-2025 Urea nitrogen/Creatinine [Mass ratio] 16.5 mg/mg 10-20 [facility] Basophil percentageOrdered B y: ED PROVIDER on 01-21-2025 Basophils/100 WBC (Bld) 0.9 % 0-1 [facility] Bilirubin, totalOrdered By: ED PROVIDER on 01-21-2025 Bilirubin [Mass/Vol] 0.18 mg/dL 0.00-1.30 [facility] Carbon dioxide, total [Moles /volume] in Central venous bloodOrdered By: ED PROVIDER on 01-21-2025 CO2 [Moles/Vol] 21.0 mmol/L 21.0-32.0 [facility] Chloride assayOrdered By: ED PROVIDER on 01-21-2025 Chloride [Moles/Vol] 94 mmol/L Low 98-108 [facility] Eosinophil percentageOrdered By: ED PROVIDER on 01-21-2025 Eosinophils/100 WBC (Bld) 2.4 % 0-5 [facility] Erythrocyte distribution wid th ratioOrdered By: ED PROVIDER on 01-21-2025 Erythrocyte distribution width (RBC) [Ratio] 13.3 % 11.6-14.6 [facility] Erythrocyte distribution wid th standard deviationOrdered By: ED PROVIDER on 01-21-2025 Erythrocyte distribution width (RBC) [Ratio] 45.1 fl High 35.1-43.9 [facility] Glomerular filtration rate ( GFR) estimation/1.73 sq m using serum, plasma, or whole bOrdered By: ED PROVIDER on 01-21-2025 GFR/1.73 sq M.predicted among non-blacks MDRD (S/P/Bld) [Vol rate/Area] 40 mL/min/{1.73_m2} Low >60 [facility] Comment on above: mL/min/1.73m2 CKD-EP I Creatinine Equation (2020) Hematocrit Auto (Bld) [Volum e fraction]Ordered By: ED PROVIDER on 01-21-2025 Hematocrit (Bld) [Volume fraction] 33.6 % Low 37-47 [facility] Hemoglobin measurementOrdere d By: ED PROVIDER on 01-21-2025 Hemoglobin (Bld) [Mass/Vol] 11.8 g/dL Low 12.0-15.0 [facility] Immature granulocytes/100 WB C Auto (Bld)Ordered By: ED PROVIDER on 01-21-2025 Immature granulocytes/100 WBC (Bld) 0.400 % 0.0-0.9 [facility] Comment on above: IG% - Immature Granu locytes (promyelocytes, myelocytes and metamyelocytes) > 1% indicates that a LEFT SHIFT is Present. Laboratory - Chemistry and C hemistry - challengeOrdered By: ED PROVIDER on 01-21-2025 AST [Catalytic activity/Vol] 22 U/L <32 [facility] Lipase measurementOrdered By : ED PROVIDER on 01-21-2025 Lipase [Catalytic activity/Vol] 62 U/L 13-75 [facility] Comment on above: Please note:LIPASE r evised reference range effective 22. New Lipase methodology. Expected to produce lower values than the previous assay method. NEW Reference Range: 13 - 75 U/L MCV (mean corpuscular volume ) determinationOrdered By: ED PROVIDER on 01-21-2025 MCV (RBC) [Entitic vol] 92.3 fL 81-99 [facility] Mean corpuscular hemoglobin (MCH) determinationOrdered By: ED PROVIDER on 01-21-2025 MCH (RBC) [Entitic mass] 32.4 pg High 27.0-32.0 [facility] Mean corpuscular hemoglobin concentration (MCHC) determinationOrdered By: ED PROVIDER on 01-21-2025 MCHC (RBC) [Mass/Vol] 35.1 g/dL 32-36 [facility] Mean platelet volume determi nationOrdered By: ED PROVIDER on 01-21-2025 Platelet mean volume (Bld) [Entitic vol] 8.9 fL 6.2-12.0 [facility] Monocyte percentageOrdered B y: ED PROVIDER on 01-21-2025 Monocytes/100 WBC (Bld) 7.0 % 0-10 [facility] Neutrophil percentageOrdered By: ED PROVIDER on 01-21-2025 Neutrophils/100 WBC (Bld) 66.7 % 47-70 [facility] Nucleated red blood cell per centageOrdered By: ED PROVIDER on 01-21-2025 Nucleated RBC/100 WBC (Bld) [Ratio] 0 % 0-5 [facility] Platelet countOrdered By: ED PROVIDER on 01-21-2025 Platelets (Bld) [#/Vol] 384 10*3/uL 150-450 [facility] Potassium measurement (mass/ volume)Ordered By: ED PROVIDER on 01-21-2025 Potassium (Unsp spec) [Mass/Vol] 4.2 mmol/L 3.3-5.1 [facility] RBC Auto (Bld) [#/Vol]Ordere d By: ED PROVIDER on 01-21-2025 RBC (Bld) [#/Vol] 3.64 10*6/uL Low 4.2-5.4 [facility] Serum creatinine measurement (mass/volume)Ordered By: ED PROVIDER on 01-21-2025 Creatinine [Mass/Vol] 1.37 mg/dL High 0.70-1.20 [facility] Serum globulin measurementOr dered By: ED PROVIDER on 01-21-2025 Globulin (S) [Mass/Vol] 3.0 g/dL 2.2-4.2 [facility] Serum glucose measurement (m ass/volume)Ordered By: ED PROVIDER on 01-21-2025 Glucose [Mass/Vol] 112 mg/dL High 70-99 [facility] Serum or plasma alanine reyes otransferase (ALT) measurementOrdered By: ED PROVIDER on 01-21-2025 ALT [Catalytic activity/Vol] 20 U/L <35 [facility] Serum or plasma albumin ata urement (mass/volume)Ordered By: ED PROVIDER on 01-21-2025 Albumin [Mass/Vol] 4.1 g/dL 3.4-4.8 [facility] Serum or plasma albumin/glob ulin mass ratioOrdered By: ED PROVIDER on 01-21-2025 Albumin/Globulin [Mass ratio] 1.4 {ratio} 0.9-2.4 [facility] Serum or plasma alkaline edgar sphatase measurementOrdered By: ED PROVIDER on 01-21-2025 ALP [Catalytic activity/Vol] 48 U/L 35-104 [facility] Serum or plasma calcium ata urement (mass/volume)Ordered By: ED PROVIDER on 01-21-2025 Calcium [Mass/Vol] 9.4 mg/dL 7.6-11.0 [facility] Serum or plasma urea nitroge n measurement (mass/volume)Ordered By: ED PROVIDER on 01-21-2025 Urea nitrogen [Mass/Vol] 23 mg/dL High 4-19 [facility] Sodium levelOrdered By: ED P ROVIDER on 01-21-2025 Sodium [Moles/Vol] 129 mmol/L Low 133-145 [facility] Total proteinOrdered By: ED PROVIDER on 01-21-2025 Protein [Mass/Vol] 7.1 g/dL 5.9-8.4 [facility] White blood cell (WBC) count Ordered By: ED PROVIDER on 01-21-2025 WBC (Bld) [#/Vol] 13.4 10*3/uL High 4.4-11.0 [facility] Financial Services Assistant Office Visit Reporton 11-18-2024 Financial Services Assistant Office Visit Report [facility] [address], [address] [place] [address] OFFICE VISIT Date of Service: 11/18/24 MR#: [id number] Acct: [id number] Name: ABY TELLES Rep #: [id number] : 1950 Provider: Dr. 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 Normal [facility] Anion gap in Serum or Plasma Ordered By: Bassam Johnson on 09-30-2024 Anion gap [Moles/Vol] 13 mmol/L - [facility] BUN/creatinine ratioOrdered By: Bassam Johnson on 09-30-2024 Urea nitrogen/Creatinine [Mass ratio] 18.0 mg/mg - [facility] Basic Metabolic Profile (BMP )on 09-30-2024 BUN/CRE 18.0 RATIO Normal - [facility] Comment on above: Performed By: #### L 100.0500, L500.2500 #### [facility] [address] [place], [address] Calcium [Mass/Vol] 9.3 mg/dL Normal 7.6-11.0 [facility] Comment on above: Performed By: #### L 100.0500, L500.2500 #### [facility] [address] [place], [address] Chloride [Moles/Vol] 98 mmol/L Normal 98-108 [facility] Comment on above: Performed By: #### L 100.0500, L500.2500 #### [facility] [address] [place], [address] CO2 [Moles/Vol] 23.0 mmol/L Normal 21.0-32.0 [facility] Comment on above: Performed By: #### L 100.0500, L500.2500 #### [facility] [address] [place], [address] Creatinine [Mass/Vol] 1.38 mg/dL High 0.70-1.20 [facility] Comment on above: Performed By: #### L 100.0500, L500.2500 #### [facility] [address] [place], [address] GAP 13 Normal 5-15 [facility] Comment on above: Performed By: #### L 100.0500, L500.2500 #### [facility] [address] [place], [address] GFR/1.73 sq M.predicted among non-blacks MDRD (S/P/Bld) [Vol rate/Area] 40 mL/min/{1.73_m2} Low >60 [facility] Comment on above: Result Comment: mL/m in/1.73m2 CKD-EPI Creatinine Equation (2020) Performed By: #### L 100.0500, L500.2500 #### [facility] [address] [place], [address] Glucose [Mass/Vol] 101 mg/dL High 70-99 [facility] Comment on above: Performed By: #### L 100.0500, L500.2500 #### [facility] [address] [place], [address] Potassium [Moles/Vol] 3.9 mmol/L Normal 3.3-5.1 [facility] Comment on above: Result Comment: Hemo lysis present, Results??could be affected. ?? Performed By: #### L 100.0500, L500.2500 #### [facility] [address] [place], [address] Sodium [Moles/Vol] 134 mmol/L Normal 133-145 [facility] Comment on above: Performed By: #### L 100.0500, L500.2500 #### [facility] [address] [place], [address] Urea nitrogen [Mass/Vol] 25 mg/dL High 4-19 [facility] Comment on above: Performed By: #### L 100.0500, L500.2500 #### [facility] [address] [place], [address] CBC-Complete Blood Cnt No Di ffon 09-30-2024 Erythrocyte distribution width (RBC) [Ratio] 13.2 % Normal 11.6-14.6 [facility] Comment on above: Performed By: #### L 100.0500, L500.2500 #### [facility] [address] [place], [address] Hematocrit (Bld) [Volume fraction] 33.1 % Low 37-47 [facility] Comment on above: Performed By: #### L 100.0500, L500.2500 #### [facility] [address] [place], [address] Hemoglobin (Bld) [Mass/Vol] 11.7 g/dL Low 12.0-15.0 [facility] Comment on above: Performed By: #### L 100.0500, L500.2500 #### [facility] [address] [place], [address] MCH (RBC) [Entitic mass] 33.0 pg High 27.0-32.0 [facility] Comment on above: Performed By: #### L 100.0500, L500.2500 #### [facility] [address] [place], [address] MCHC (RBC) [Mass/Vol] 35.3 g/dL Normal 32-36 [facility] Comment on above: Performed By: #### L 100.0500, L500.2500 #### [facility] [address] [place], [address] MCV (RBC) [Entitic vol] 93.2 fL Normal 81-99 [facility] Comment on above: Performed By: #### L 100.0500, L500.2500 #### [facility] [address] [place], [address] Platelet mean volume (Bld) [Entitic vol] 8.9 fL Normal 6.2-12.0 [facility] Comment on above: Performed By: #### L 100.0500, L500.2500 #### [facility] [address] [place], [address] Platelets (Bld) [#/Vol] 385 10*3/uL Normal 150-450 [facility] Comment on above: Performed By: #### L 100.0500, L500.2500 #### [facility] [address] [place], [address] RBC (Bld) [#/Vol] 3.55 10*6/uL Low 4.2-5.4 [facility] Comment on above: Performed By: #### L 100.0500, L500.2500 #### [facility] [address] [place], [address] RDW SD 44.6 fl High 35.1-43.9 [facility] Comment on above: Performed By: #### L 100.0500, L500.2500 #### [facility] [address] [place], [address] WBC (Bld) [#/Vol] 9.3 10*3/uL Normal 4.4-11.0 [facility] Comment on above: Performed By: #### L 100.0500, L500.2500 #### [facility] [address] [place], [address] Carbon dioxide, total [Moles /volume] in Central venous bloodOrdered By: Bassam Johnson on 09-30-2024 CO2 [Moles/Vol] 23.0 mmol/L 21.0-32.0 [facility] Chloride assayOrdered By: Belen Johnson on 09-30-2024 Chloride [Moles/Vol] 98 mmol/L 98-108 [facility] Erythrocyte distribution wid th (RBC) [Ratio]Ordered By: Bassam Johnson on 09-30-2024 Erythrocyte distribution width (RBC) [Entitic vol] 44.6 fL High 35.1-43.9 [facility] Erythrocyte distribution wid th ratioOrdered By: Bassam Johnson on 09-30-2024 Erythrocyte distribution width (RBC) [Ratio] 13.2 % 11.6-14.6 [facility] Erythrocyte distribution wid th standard deviationOrdered By: Bassam Johnson on 09-30-2024 Erythrocyte distribution width (RBC) [Ratio] 44.6 fl High 35.1-43.9 [facility] GFR/1.73 sq M.predicted scott g non-blacks MDRD (S/P/Bld) [Vol rate/Area]Ordered By: Bassam Johnson on 09-30-2024 Estimated GFR (MDRD) Non-Af Amer 40 Low >60 [facility] Comment on above: mL/min/1.73m2 CKD-EP I Creatinine Equation (2020) Glomerular filtration rate ( GFR) estimation/1.73 sq m using serum, plasma, or whole bOrdered By: Bassam Johnson on 09-30-2024 GFR/1.73 sq M.predicted among non-blacks MDRD (S/P/Bld) [Vol rate/Area] 40 mL/min/{1.73_m2} Low >60 [facility] Comment on above: mL/min/1.73m2 CKD-EP I Creatinine Equation (2020) Hematocrit Auto (Bld) [Volum e fraction]Ordered By: Bassam Johnson on 09-30-2024 Hematocrit (Bld) [Volume fraction] 33.1 % Low 37-47 [facility] Hemoglobin measurementOrdere d By: Bassam Johnson on 09-30-2024 Hemoglobin (Bld) [Mass/Vol] 11.7 g/dL Low 12.0-15.0 [facility] MCV (mean corpuscular volume ) determinationOrdered By: Bassam Johnson on 09-30-2024 MCV (RBC) [Entitic vol] 93.2 fL 81-99 [facility] Mean corpuscular hemoglobin (MCH) determinationOrdered By: Bassam Johnson on 09-30-2024 MCH (RBC) [Entitic mass] 33.0 pg High 27.0-32.0 [facility] Mean corpuscular hemoglobin concentration (MCHC) determinationOrdered By: Bassam Johnson on 09-30-2024 MCHC (RBC) [Mass/Vol] 35.3 g/dL 32-36 [facility] Mean platelet volume determi nationOrdered By: Bassam Johnson on 09-30-2024 Platelet mean volume (Bld) [Entitic vol] 8.9 fL 6.2-12.0 [facility] Platelet countOrdered By: Belen Johnson on 09-30-2024 Platelets (Bld) [#/Vol] 385 10*3/uL 150-450 [facility] Potassium (Unsp spec) [Mass/ Vol]Ordered By: Bassam Johnson on 09-30-2024 Potassium [Moles/Vol] 3.9 mmol/L 3.3-5.1 [facility] Comment on above: Hemolysis present, R esults could be affected. Potassium measurement (mass/ volume)Ordered By: Bassam Johnson on 09-30-2024 Potassium (Unsp spec) [Mass/Vol] 3.9 mmol/L 3.3-5.1 [facility] Comment on above: Hemolysis present, R esults could be affected. RBC Auto (Bld) [#/Vol]Ordere d By: Bassam Johnson on 09-30-2024 RBC (Bld) [#/Vol] 3.55 10*6/uL Low 4.2-5.4 [facility] Serum creatinine measurement (mass/volume)Ordered By: Bassam Johnson on 09-30-2024 Creatinine [Mass/Vol] 1.38 mg/dL High 0.70-1.20 [facility] Serum glucose measurement (m ass/volume)Ordered By: Bassam Johnson on 09-30-2024 Glucose [Mass/Vol] 101 mg/dL High 70-99 [facility] Serum or plasma calcium ata urement (mass/volume)Ordered By: Bassam Johnson on 09-30-2024 Calcium [Mass/Vol] 9.3 mg/dL 7.6-11.0 [facility] Serum or plasma urea nitroge n measurement (mass/volume)Ordered By: Bassam Johnson on 09-30-2024 Urea nitrogen [Mass/Vol] 25 mg/dL High 4-19 [facility] Sodium levelOrdered By: Bre Johnson on 09-30-2024 Sodium [Moles/Vol] 134 mmol/L 133-145 [facility] White blood cell (WBC) count Ordered By: Bassam Johnson on 09-30-2024 WBC (Bld) [#/Vol] 9.3 10*3/uL 4.4-11.0 [facility] Breast imaging reportOrdered By: Everardo Ann on 09-16-2024 Study report [facility] Imaging Services [address] [place] [address] SCRN MAMM (CAD)W/DEBBIE BILAT MR#: [id number] Acct: [id number] Name: ABY TELLES Rep #: [id number] : 1950 F 74 From: Perfecto Ann MD PCP: Dr. Bassam Johnson MD Status: [facility] Study:SCRN MAMM (CAD)W/DEBBIE BILAT Date of Exa m: 09/16/24 Exam# [id number] Ordering Dr: Lore Smith MD EXAM: SCRN [...] FOLLOW-UP Bilateral in 1 Year Reading Location: [place] [address] CC: Dr. Bassam Johnson MD; Dr. Lore Scanlon MD ~ Emissions Technician: Signed [facility] SCRN MAMM (CAD)W/DEBBIE BILATo n 09-16-2024 SCRN MAMM (CAD)W/DEBBIE BILAT [facility] Imaging Services [address] [place] [address] SCRN MAMM (CAD)W/DEBBIE BILAT MR#: [id number] Acct: [id number] Name: ABY TELLES Rep #: [id number] : 1950 F 74 From: Everardo cornejo MD PCP: Dr. Bassam Johnson MD Status: [facility] Study: SCRN MAMM (CAD)W/DEBBIE BILAT Date of Exam: 08/31 01/24 Exam# [id number] Ordering Dr: Lore Scanlon EXAM: SCRN MAMM [...] FOLLOW-UP Bilateral in 1 Year Reading Location: [place] [address] CC: Dr. Bassam Johnson MD; Dr. Lore Scanlon MD Emissions Technician: Signed Normal [facility] Colonoscopy Reporton 024 Colonoscopy Report [facility] Medical Records Department [address] [place] [address] Colonoscopy Report MR#: [id number] Acct: [id number] Name: ABY TELLES Rep #: [id number] : 1950 73 From: Loli Chan MD PCP: Dr. Bassam Johnson MD Status:REG [facility] Patient Name: Aby Telles Procedure Date: 05/29/2024 [...] that time Procedure Code(s): --- Professional --- 44786, PT, Colonoscopy, flexible; with biopsy, single or multiple Diagnosis Code(s): --- Professional --- Z12.11, Encounter for screening for malignant neoplasm of colon D12.8, Benign neoplasm of rectum CPT copyright 2021 [employer]. All rights reserved. The codes documented in this report are preliminary and upon boat designer review may be revised to meet current compliance requirements. MD Loli Julio MD 05/29/2024 8:04:51 AM This report has been signed electronically. Number of Addenda: 0 Note Initiated On: 05/29/2024 7:29 AM 05/29/24803 Date Loli Chan MD Cosigner Signature: Date (if indicated) CC: Dr. Bassam Johnson MD; Dr. Loli Chan MD Date Dictated: 05/29/24 0729 Date Transcribed: Emissions Technician: JASS Signed [facility] MR/POSTOP.Wei 05-29-2024 MR/POSTOP.[facility] Medical Records Department [address] [place] [address] Anesthesia Postop Eval I 05/29/24809 MR#: [id number] Acct: [id number] Name: ABY TELLES Rep #: [id number] : 1950 73 From: Fermin Mcghee PCP: Dr. Bassam Johnson MD Status:[facility] Y Race: C Location: [place] [address] Anesthesia: Postop Eval I Current Vital Signs [...] Fermin Restrepo Signature: Date CC: Signed Normal [facility] MR/OVATOJRG5mo 05-29-2024 [facility] Medical Records Department [address] [place] [address] Anesthesia Postop Eval II 05/29/24954 MR#: [id number] Acct: [id number] Name: ABY TELLES Rep #: [id number] : 1950 73 From: Perdo Zhang MD PCP: Dr. Bassam Johnson MD Status:[facility] Y Race: C Location: [place] Anesthesia Postop [...] Pedro Smith Signature: Date CC: Signed Normal [facility] Surgery Specimen Level Duy 05-29-2024 Surgery Specimen Level IV -- Patient Age/Sex Location Account Attending Physician -- ABY TELLES 73/F EN [id number] Dr. Loli Chan MD -- Specimen: [id number] Received: 05/29/24 Status: LENNY Guerra Num: [id number] Spec Type: COLON BX Subm Dr: Dr. [...] submitted in one cassette. AM. 05/29/2024 TC:5 CPT:86092 -- Patient Age/Sex Location Account Attending Physician -- ABY TELLES 73/F EN [id number] Dr. Loli Chan MD -- Signed (signatu re on file) Dr. Shashank Razo DO 05/31/24 1216 -- Normal [facility] Comment on above: Performed By: #### P SUIV #### [facility] Laboratory [address] [place] [address], [address] Urine Cultureon 04-03-2024 URC Escherichia coli Ledbetter Count 80,000-100,000 Streptococcus agalactiae (B) Streptococcus agalactiae [...] S Vancomycin Islt JOANNA 0.5 S Normal [facility] Comment on above: Performed By: #### L 100.0500, L500.2500 #### [facility] Laboratory [address] [place], [place], [id number] Basic Metabolic Profile (BMP )on 03-31-2024 BUN/CRE 17.3 RATIO Normal 10-20 [facility] Comment on above: Order Comment: SP ECIMEN IS MODERATELY LIPEMIC Performed By: #### L 100.0100, L500.2500 #### [facility] Laboratory [address] [place], [address] CA,Total 8.8 mg/dL Normal 8.5-10.1 [facility] Comment on above: Order Comment: SP ECIMEN IS MODERATELY LIPEMIC Performed By: #### L 100.0100, L500.2500 #### [facility] Laboratory [address] [place], [address] Chloride [Moles/Vol] 102 mmol/L Normal 98-107 [facility] Comment on above: Order Comment: SP ECIMEN IS MODERATELY LIPEMIC Performed By: #### L 100.0100, L500.2500 #### [facility] Laboratory [address] [place], [address] CO2 [Moles/Vol] 25.0 mmol/L Normal 21.0-32.0 [facility] Comment on above: Order Comment: SP ECIMEN IS MODERATELY LIPEMIC Performed By: #### L 100.0100, L500.2500 #### [facility] Laboratory [address] [place], [address] Creatinine [Mass/Vol] 1.33 mg/dL High 0.55-1.02 [facility] Comment on above: Order Comment: SP ECIMEN IS MODERATELY LIPEMIC Result Comment: The validity of the calculated GFR GFRAA in patients over 70 years has not been determined. Clinical correlation is essential. Performed By: #### L 100.0100, L500.2500 #### [facility] Laboratory [address] [place], [address] ECRCL 32.26 ml/min Normal [facility] Comment on above: Order Comment: SP ECIMEN IS MODERATELY LIPEMIC Performed By: #### L 100.0100, L500.2500 #### [facility] Laboratory [address] [place], [address] EST GFR - AA 50 mL/min Low >60 [facility] Comment on above: Order Comment: SP ECIMEN IS MODERATELY LIPEMIC Result Comment: Afri can [employer] GFR Calc Performed By: #### L 100.0100, L500.2500 #### [facility] Laboratory [address] [place], [address] GAP 7 Normal 5-15 [facility] Comment on above: Order Comment: SP ECIMEN IS MODERATELY LIPEMIC Performed By: #### L 100.0100, L500.2500 #### [facility] Laboratory [address] [place], [address] GFR/1.73 sq M.predicted among non-blacks MDRD (S/P/Bld) [Vol rate/Area] 41 mL/min/{1.73_m2} Low >60 [facility] Comment on above: Order Comment: SP ECIMEN IS MODERATELY LIPEMIC Result Comment: Non- GFR Calc Performed By: #### L 100.0100, L500.2500 #### [facility] Laboratory [address] [place], [address] Glucose [Mass/Vol] 132 mg/dL High 74-106 [facility] Comment on above: Order Comment: SP ECIMEN IS MODERATELY LIPEMIC Result Comment: Fast ing Glucose result greater than or equal to 126 mg/dL suggests DIABETES MELLITUS per A.D.A. criteria. Performed By: #### L 100.0100, L500.2500 #### [facility] Laboratory [address] [place], [address] Potassium [Moles/Vol] 4.2 mmol/L Normal 3.5-5.1 [facility] Comment on above: Order Comment: SP ECIMEN IS MODERATELY LIPEMIC Performed By: #### L 100.0100, L500.2500 #### [facility] Laboratory [address] [place], [address] Sodium [Moles/Vol] 134 mmol/L Low 136-145 [facility] Comment on above: Order Comment: SP ECIMEN IS MODERATELY LIPEMIC Performed By: #### L 100.0100, L500.2500 #### [facility] Laboratory [address] [place], [address] Urea nitrogen [Mass/Vol] 23 mg/dL High 7-18 [facility] Comment on above: Order Comment: SP ECIMEN IS MODERATELY LIPEMIC Performed By: #### L 100.0100, L500.2500 #### [facility] Laboratory [address] [place], [address] CBC W/Diff, Automatedon 09- Absolute Lymph 1.74 X10 3/uL Normal 0.83-4.51 [facility] Comment on above: Performed By: #### L 100.0100, L500.2500 #### [facility] Laboratory [address] [place], [address] Absolute Neut 5.2 X10 3/uL Normal 2.0-7.7 [facility] Comment on above: Performed By: #### L 100.0100, L500.2500 #### [facility] Laboratory [address] [place], [address] Basophils/100 WBC (Bld) 1.3 % High 0-1 [facility] Comment on above: Performed By: #### L 100.0100, L500.2500 #### [facility] Laboratory [address] [place], [address] Eosinophils/100 WBC (Bld) 2.2 % Normal 0-5 [facility] Comment on above: Performed By: #### L 100.0100, L500.2500 #### [facility] Laboratory [address] [place], [address] Erythrocyte distribution width (RBC) [Ratio] 12.8 % Normal 11.6-14.6 [facility] Comment on above: Performed By: #### L 100.0100, L500.2500 #### [facility] Laboratory [address] [place], [address] Hematocrit (Bld) [Volume fraction] 31.5 % Low 37-47 [facility] Comment on above: Performed By: #### L 100.0100, L500.2500 #### [facility] Laboratory [address] [place], [address] Hemoglobin (Bld) [Mass/Vol] 11.0 g/dL Low 12.0-15.0 [facility] Comment on above: Performed By: #### L 100.0100, L500.2500 #### [facility] Laboratory [address] [place], [address] IG% 0.500 Normal 0.0-0.9 [facility] Comment on above: Result Comment: IG% - Immature Granulocytes (promyelocytes, myelocytes and metamyelocytes) > 1% indicates that a LEFT SHIFT is Present. Performed By: #### L 100.0100, L500.2500 #### [facility] Laboratory [address] [facility] [place], [address] Lymphocytes/100 WBC (Bld) 22.3 % Normal 19-41 [facility] Comment on above: Performed By: #### L 100.0100, L500.2500 #### [facility] Laboratory [address] [place], [address] MCH (RBC) [Entitic mass] 32.7 pg High 27.0-32.0 [facility] Comment on above: Performed By: #### L 100.0100, L500.2500 #### [facility] Laboratory [address] [place], [address] MCHC (RBC) [Mass/Vol] 34.9 g/dL Normal 32-36 [facility] Comment on above: Performed By: #### L 100.0100, L500.2500 #### [facility] Laboratory [address] [place], [address] MCV (RBC) [Entitic vol] 93.8 fL Normal 81-99 [facility] Comment on above: Performed By: #### L 100.0100, L500.2500 #### [facility] Laboratory [address] [place], [address] Monocytes/100 WBC (Bld) 7.3 % Normal 0-10 [facility] Comment on above: Performed By: #### L 100.0100, L500.2500 #### [facility] Laboratory [address] [place], [address] Neutrophils/100 WBC (Bld) 66.4 % Normal 47-70 [facility] Comment on above: Performed By: #### L 100.0100, L500.2500 #### [facility] Laboratory [address] [place], [address] Nucleated RBC (Bld) [#/Vol] 0 10*3/uL Normal 0-5 [facility] Comment on above: Performed By: #### L 100.0100, L500.2500 #### [facility] Laboratory [address] [place], [address] Platelet mean volume (Bld) [Entitic vol] 9.1 fL Normal 6.2-12.0 [facility] Comment on above: Performed By: #### L 100.0100, L500.2500 #### [facility] Laboratory [address] [place], [address] Platelets (Bld) [#/Vol] 319 10*3/uL Normal 150-450 [facility] Comment on above: Performed By: #### L 100.0100, L500.2500 #### [facility] Laboratory [address] [place], [address] RBC (Bld) [#/Vol] 3.36 10*6/uL Low 4.2-5.4 [facility] Comment on above: Performed By: #### L 100.0100, L500.2500 #### [facility] Laboratory [address] [place], [address] RDW SD 43.7 fl Normal 35.1-43.9 [facility] Comment on above: Performed By: #### L 100.0100, L500.2500 #### [facility] Laboratory [address] [place], [address] WBC (Bld) [#/Vol] 7.8 10*3/uL Normal 4.4-11.0 [facility] Comment on above: Performed By: #### L 100.0100, L500.2500 #### [facility] Laboratory [address] [place], [address] Emergency Department Summary on 03-31-2024 Emergency Department Summary [facility] Medical Records Department [address] [facility] [place] [address] Emergency Department Summary 03/31/24 MR#: [id number] Acct: [id number] Name: ABY TELLES Rep #: [id number] : 1950 73 From: Hossein North DO [...] helped. Patient denies any fevers or chills. [facility] Medical History Wears partial dentures Wears [...] DAILY PRN PRN Anxiety 01/24/17 12/22/22 History gvztffsibopt-Os-zc on-minerals 1 ea PO DAILY supplement 01/24/17 [...] mg PO DAILY 05/09/22 12/22/22 History peg 669-iipelypgmxwx-p lycerin 1 1 drp EACH EYE BID [...] change i (more content not included)... Normal [facility] Urinalysis, Completeon 03-31 BACTERIA 3+ /hpf Normal None Seen [facility] Comment on above: Order Comment: CLEAN CATCH Performed By: #### L 400.0001 #### [facility] Laboratory [address] [place], [address] EPI,RENAL 5-10 SEEN Normal 0-5 [facility] Comment on above: Order Comment: CLEAN CATCH Performed By: #### L 400.0001 #### [facility] Laboratory [address] [place], [address] EPI,SQUAMOUS 10-25 SEEN Normal 5-10 [facility] Comment on above: Order Comment: CLEAN CATCH Performed By: #### L 400.0001 #### [facility] Laboratory [address] [place], [address] WBC >100 SEEN Normal 0-5 [facility] Comment on above: Order Comment: CLEAN CATCH Performed By: #### L 400.0001 #### [facility] Laboratory [address] [place], [address] BILIRUBIN URINE Negative Normal Negative [facility] Comment on above: Order Comment: CLEAN CATCH Performed By: #### L 400.0001 #### [facility] [address] [place], [address] Clarity (U) Cloudy Normal Clear [facility] Comment on above: Order Comment: CLEAN CATCH Performed By: #### L 400.0001 #### [facility] Laboratory [address] [place], [address] Color (U) Yellow Normal Yellow [facility] Comment on above: Order Comment: CLEAN CATCH Performed By: #### L 400.0001 #### [facility] Laboratory [address] [place], [address] GLUCOSE, UR Normal Normal Normal [facility] Comment on above: Order Comment: CLEAN CATCH Performed By: #### L 400.0001 #### [facility] Laboratory [address] [place], [address] KETONE UR Negative Normal Negative [facility] Comment on above: Order Comment: CLEAN CATCH Performed By: #### L 400.0001 #### [facility] Laboratory [address] [place], [address] LEUK ESTERASE 500 /ul Abnormal Negative [facility] Comment on above: Order Comment: CLEAN CATCH Performed By: #### L 400.0001 #### [facility] Laboratory [address] [place], [address] Nitrite Ql (U) Negative Normal Negative [facility] Comment on above: Order Comment: CLEAN CATCH Performed By: #### L 400.0001 #### [facility] Laboratory [address] [place], [address] OCCULT BLOOD-UR 10 /ul Abnormal Negative [facility] Comment on above: Order Comment: CLEAN CATCH Performed By: #### L 400.0001 #### [facility] Laboratory [address] [place], [address] pH UR 6.0 Normal 5.0 - 8.0 [facility] Comment on above: Order Comment: CLEAN CATCH Performed By: #### L 400.0001 #### [facility] Laboratory [address] [place], [address] PROT DIPSTX 30 mg/dl Abnormal Negative [facility] Comment on above: Order Comment: CLEAN CATCH Performed By: #### L 400.0001 #### [facility] Laboratory [address] [place], [address] SP.GR. DIPSTX 1.010 Normal 1.002-1.030 [facility] Comment on above: Order Comment: CLEAN CATCH Performed By: #### L 400.0001 #### [facility] Laboratory [address] [place], [address] UROBILI Normal Normal Normal [facility] Comment on above: Order Comment: CLEAN CATCH Performed By: #### L 400.0001 #### [facility] Laboratory [address] [place], [address] Mucus Ql (Urine sed) 0 SEEN Normal [facility] Comment on above: Order Comment: CLEAN CATCH Performed By: #### L 400.0001 #### [facility] [address] [place], [address] RBC 0 SEEN Normal 0-5 [facility] Comment on above: Order Comment: CLEAN CATCH Performed By: #### L 400.0001 #### [facility] Laboratory [address] [place], [address] 12 Lead EKGon 03-21-2024 12 Lead EKG [facility] Cardiovascular Services [address] [place] [address] 12 Lead EKG 03/21/24 1215 MR#: [id number] Acct: [id number] Name: ABY TELLES Rep #: [id number] : 1950 73 From: Ignacio Peng MD [...] Borderline ECG Confirmed by Ignacio Peng ([id number]), staff editor CHRISTY TOVAR ([id number]) on 03/25/2024 10:48:43 AM Referred By: Confirmed By:Ignacio Peng 03/25/24 1048 Date Ignacio Peng MD CC: Dr. Jose Smith DO; Dr. Bassam Johnson MD Signed Normal [facility] Brain/Head without Contrasto n 03-21-2024 Brain/Head without Contrast [facility] Imaging Services [address] [place] [address] Brain/Head without Contrast MR#: [id number] Acct: [id number] Name: ABY TELLES Rep #: [id number] : 1950 F 73 From: Dennys Botello MD PCP: Dr. Bassam Johnson MD Status: REG ER Study: Brain/Head without Contrast Date of Exam: 03/03 03/26 Exam# [id number] Ordering Dr: Corey Smith DO [id number] STUDY: CT BRAIN WITHOUT CONTRAST REASON [...] Jose Smith DO; Dr. Bassam Johnson MD Emissions Technician: Signed Normal [facility] CBC W/Diff, Automatedon 03-03 Absolute Lymph 1.46 X10 3/uL Normal 0.83-4.51 [facility] Comment on above: Performed By: #### L 100.0100, L500.4050 #### [facility] Laboratory [address] [place], [address] Absolute Neut 6.1 X10 3/uL Normal 2.0-7.7 [facility] Comment on above: Performed By: #### L 100.0100, L500.4050 #### [facility] Laboratory [address] [place], [address] Basophils/100 WBC (Bld) 1.0 % Normal 0-1 [facility] Comment on above: Performed By: #### L 100.0100, L500.4050 #### [facility] Laboratory [address] [place], [address] Eosinophils/100 WBC (Bld) 1.4 % Normal 0-5 [facility] Comment on above: Performed By: #### L 100.0100, L500.4050 #### [facility] Laboratory [address] [place], [address] Erythrocyte distribution width (RBC) [Ratio] 12.8 % Normal 11.6-14.6 [facility] Comment on above: Performed By: #### L 100.0100, L500.4050 #### [facility] Laboratory [address] [place], [address] Hematocrit (Bld) [Volume fraction] 33.7 % Low 37-47 [facility] Comment on above: Performed By: #### L 100.0100, L500.4050 #### [facility] [address] [place], [address] Hemoglobin (Bld) [Mass/Vol] 11.5 g/dL Low 12.0-15.0 [facility] Comment on above: Performed By: #### L 100.0100, L500.4050 #### [facility] Laboratory [address] [place], [address] IG% 0.400 Normal 0.0-0.9 [facility] Comment on above: Result Comment: IG% - Immature Granulocytes (promyelocytes, myelocytes and metamyelocytes) > 1% indicates that a LEFT SHIFT is Present. Performed By: #### L 100.0100, L500.4050 #### [facility] [address] [place], [address] Lymphocytes/100 WBC (Bld) 17.5 % Low 19-41 [facility] Comment on above: Performed By: #### L 100.0100, L500.4050 #### [facility] [address] [place], [address] MCH (RBC) [Entitic mass] 32.5 pg High 27.0-32.0 [facility] Comment on above: Performed By: #### L 100.0100, L500.4050 #### [facility] [address] [place], [address] MCHC (RBC) [Mass/Vol] 34.1 g/dL Normal 32-36 [facility] Comment on above: Performed By: #### L 100.0100, L500.4050 #### [facility] [address] [place], [address] MCV (RBC) [Entitic vol] 95.2 fL Normal 81-99 [facility] Comment on above: Performed By: #### L 100.0100, L500.4050 #### [facility] [address] [place], [address] Monocytes/100 WBC (Bld) 7.0 % Normal 0-10 [facility] Comment on above: Performed By: #### L 100.0100, L500.4050 #### [facility] [address] [place], [address] Neutrophils/100 WBC (Bld) 72.7 % High 47-70 [facility] Comment on above: Performed By: #### L 100.0100, L500.4050 #### [facility] [address] [place], [address] Nucleated RBC (Bld) [#/Vol] 0 10*3/uL Normal 0-5 [facility] Comment on above: Performed By: #### L 100.0100, L500.4050 #### [facility] [address] [place], [address] Platelet mean volume (Bld) [Entitic vol] 9.1 fL Normal 6.2-12.0 [facility] Comment on above: Performed By: #### L 100.0100, L500.4050 #### [facility] [address] [place], [address] Platelets (Bld) [#/Vol] 339 10*3/uL Normal 150-450 [facility] Comment on above: Performed By: #### L 100.0100, L500.4050 #### [facility] [address] [place], [address] RBC (Bld) [#/Vol] 3.54 10*6/uL Low 4.2-5.4 [facility] Comment on above: Performed By: #### L 100.0100, L500.4050 #### [facility] [address] [place], [address] RDW SD 44.8 fl High 35.1-43.9 [facility] Comment on above: Performed By: #### L 100.0100, L500.4050 #### [facility] [address] [place], [address] WBC (Bld) [#/Vol] 8.3 10*3/uL Normal 4.4-11.0 [facility] Comment on above: Performed By: #### L 100.0100, L500.4050 #### [facility] [address] [place], [address] Comprehensive Metabolic Prof dominick 03-21-2024 Albumin [Mass/Vol] 3.7 g/dL Normal 3.2-5.0 [facility] Comment on above: Performed By: #### L 100.0100, L500.4050 #### [facility] [address] [place], [address] Albumin/Globulin [Mass ratio] 1.0 {ratio} Normal 0.9-2.4 [facility] Comment on above: Performed By: #### L 100.0100, L500.4050 #### [facility] [address] [place], [address] ALK P 57 U/L Normal 45-117 [facility] Comment on above: Performed By: #### L 100.0100, L500.4050 #### [facility] [address] [place], [address] ALT [Catalytic activity/Vol] 33 U/L Normal 13-56 [facility] Comment on above: Performed By: #### L 100.0100, L500.4050 #### [facility] [address] [place], [address] AST [Catalytic activity/Vol] 21 U/L Normal 15-37 [facility] Comment on above: Performed By: #### L 100.0100, L500.4050 #### [facility] [address] [place], [address] Bilirubin [Mass/Vol] 0.30 mg/dL Normal 0.20-1.00 [facility] Comment on above: Result Comment: For patients on eltrombopag therapy, use of Dimension Bruning TBIL is not recommended. Performed By: #### L 100.0100, L500.4050 #### [facility] [address] [place], [address] BUN/CRE 16.1 RATIO Normal 10-20 [facility] Comment on above: Performed By: #### L 100.0100, L500.4050 #### [facility] [address] [place], [address] CA,Total 9.4 mg/dL Normal 8.5-10.1 [facility] Comment on above: Performed By: #### L 100.0100, L500.4050 #### [facility] [address] [place], [address] Chloride [Moles/Vol] 102 mmol/L Normal 98-107 [facility] Comment on above: Performed By: #### L 100.0100, L500.4050 #### [facility] [address] [place], [address] CO2 [Moles/Vol] 26.0 mmol/L Normal 21.0-32.0 [facility] Comment on above: Performed By: #### L 100.0100, L500.4050 #### [facility] [address] [place], [address] Creatinine [Mass/Vol] 1.24 mg/dL High 0.55-1.02 [facility] Comment on above: Result Comment: The validity of the calculated GFR GFRAA in patients over 70 years has not been determined. Clinical correlation is essential. Performed By: #### L 100.0100, L500.4050 #### [facility] [address] [place], [address] EST GFR - AA 54 mL/min Low >60 [facility] Comment on above: Result Comment: Afri can Bhutanese GFR Calc Performed By: #### L 100.0100, L500.4050 #### [facility] [address] [place], [address] GAP 5 Normal 5-15 [facility] Comment on above: Performed By: #### L 100.0100, L500.4050 #### [facility] [address] [place], [address] GFR/1.73 sq M.predicted among non-blacks MDRD (S/P/Bld) [Vol rate/Area] 45 mL/min/{1.73_m2} Low >60 [facility] Comment on above: Result Comment: Non- GFR Calc Performed By: #### L 100.0100, L500.4050 #### [facility] [address] [place], [address] Globulin (S) [Mass/Vol] 3.7 g/dL Normal 2.2-4.2 [facility] Comment on above: Performed By: #### L 100.0100, L500.4050 #### [facility] [address] [place], [address] Glucose [Mass/Vol] 132 mg/dL High 74-106 [facility] Comment on above: Result Comment: Fast ing Glucose result greater than or equal to 126 mg/dL suggests DIABETES MELLITUS per A.D.A. criteria. Performed By: #### L 100.0100, L500.4050 #### [facility] [address] [place], [address] Potassium [Moles/Vol] 4.8 mmol/L Normal 3.5-5.1 [facility] Comment on above: Performed By: #### L 100.0100, L500.4050 #### [facility] [address] [place], [address] Sodium [Moles/Vol] 133 mmol/L Low 136-145 [facility] Comment on above: Performed By: #### L 100.0100, L500.4050 #### [facility] [address] [place], [address] T PROT 7.4 g/dL Normal 6.4-8.2 [facility] Comment on above: Performed By: #### L 100.0100, L500.4050 #### [facility] [address] [place], [address] Urea nitrogen [Mass/Vol] 20 mg/dL High 7- [facility] Comment on above: Performed By: #### L 100.0100, L500.4050 #### [facility] [address] [place], [address] Emergency Department Summary on 03-21-2024 Emergency Department Summary [facility] Medical Records Department [address] [place] [address] Emergency Department Summary 03/21/24 MR#: [id number] Acct: [id number] Name: ABY TELLES Rep #: [id number] : 1950 73 From: Jose Smith DO [...] 0 Psych: Cooperative, appropriate mood and affect [facility] Medical History Wears partial dentures Wears [...] DAILY PRN PRN Anxiety 01/24/17 12/22/22 History qtuokmnlhcyd-Gy-vh on-minerals 1 ea PO DAILY supplement 01/24/17 [...] mg PO DAILY 05/09/22 12/22/22 History peg 549-svyzwwtrptrj-h lycerin 1 1 drp EACH EYE BID [...] repair ( (more content not included)... Normal [facility] Urinalysis, Completeon 03-21 BACTERIA Normal None Seen [facility] Comment on above: Order Comment: FREDDIE ASKEWOR TO SPECIFY Result Comment: Canc elled via OM: CANCEL Performed By: #### L 400.0001 #### [facility] [address] [place], [place], [id number] BILIRUBIN URINE Normal Negative [facility] Comment on above: Order Comment: FREDDIE CTOR TO SPECIFY Result Comment: Canc elled via OM: CANCEL Performed By: #### L 400.0001 #### [facility] [address] [place], [address] Clarity (U) Normal Clear [facility] Comment on above: Order Comment: FREDDIE CTOR TO SPECIFY Result Comment: Canc elled via OM: CANCEL Performed By: #### L 400.0001 #### [facility] [address] [place], [address] Color (U) Normal Yellow [facility] Comment on above: Order Comment: FREDDIE CTOR TO SPECIFY Result Comment: Canc elled via OM: CANCEL Performed By: #### L 400.0001 #### [facility] [address] [place], [address] EPI,SQUAMOUS Normal 5-10 [facility] Comment on above: Order Comment: FREDDIE CTOR TO SPECIFY Result Comment: Canc elled via OM: CANCEL Performed By: #### L 400.0001 #### [facility] [address] [place], [address] GLUCOSE, UR Normal Normal [facility] Comment on above: Order Comment: FREDDIE CTOR TO SPECIFY Result Comment: Canc elled via OM: CANCEL Performed By: #### L 400.0001 #### [facility] [address] [place], [address] KETONE UR Normal Negative [facility] Comment on above: Order Comment: FREDDIE CTOR TO SPECIFY Result Comment: Canc elled via OM: CANCEL Performed By: #### L 400.0001 #### [facility] [address] [place], [address] LEUK ESTERASE Normal Negative [facility] Comment on above: Order Comment: FREDDIE CTOR TO SPECIFY Result Comment: Canc elled via OM: CANCEL Performed By: #### L 400.0001 #### [facility] [address] [place], [address] Mucus Ql (Urine sed) Normal [facility] Comment on above: Order Comment: FREDDIE CTOR TO SPECIFY Result Comment: Canc elled via OM: CANCEL Performed By: #### L 400.0001 #### [facility] [address] [place], [address] Nitrite Ql (U) Normal Negative [facility] Comment on above: Order Comment: FREDDIE CTOR TO SPECIFY Result Comment: Canc elled via OM: CANCEL Performed By: #### L 400.0001 #### [facility] [address] [facility] [address] OCCULT BLOOD-UR Normal Negative [facility] Comment on above: Order Comment: FREDDIE CTOR TO SPECIFY Result Comment: Canc elled via OM: CANCEL Performed By: #### L 400.0001 #### [facility] [address] [place] [id number] pH UR Normal 5.0 - 8.0 [facility] Comment on above: Order Comment: FREDDIE CTOR TO SPECIFY Result Comment: Canc elled via OM: CANCEL Performed By: #### L 400.0001 #### [facility] [address] [place] [address] PROT DIPSTX Normal Negative [facility] Comment on above: Order Comment: FREDDIE CTOR TO SPECIFY Result Comment: Canc elled via OM: CANCEL Performed By: #### L 400.0001 #### [facility] [address] [facility] [address] RBC Normal 0-5 [facility] Comment on above: Order Comment: FREDDIE CTOR TO SPECIFY Result Comment: Canc elled via OM: CANCEL Performed By: #### L 400.0001 #### [facility] [address] [place], [address] SP.GR. DIPSTX Normal 1.002-1.030 [facility] Comment on above: Order Comment: FREDDIE CTOR TO SPECIFY Result Comment: Canc elled via OM: CANCEL Performed By: #### L 400.0001 #### [facility] [address] [place], [address] UR Preservative Normal [facility] Comment on above: Order Comment: COLLE CTOR TO SPECIFY Result Comment: Canc elled via OM: CANCEL Performed By: #### L 400.0001 #### [facility] [address] [place], [address] UROBILI Normal Normal [facility] Comment on above: Order Comment: COLLE CTOR TO SPECIFY Result Comment: Canc elled via OM: CANCEL Performed By: #### L 400.0001 #### [facility] [address] [place], [address] WBC Normal 0-5 [facility] Comment on above: Order Comment: COLLE CTOR TO SPECIFY Result Comment: Canc elled via OM: CANCEL Performed By: #### L 400.0001 #### [facility] [address] [place], [address] Basophil percentageOrdered B y: Bassam Johnson on 05-17-2023 Sodium [Moles/Vol] 136 mmol/L 136-145 [facility] Basophil percentageOrdered B y: Rachel Velez on 04-25-2023 Chloride [Moles/Vol] 104 mmol/L 98-107 [facility] Glucose [Mass/Vol] 105 mg/dL 74-106 [facility] Comment on above: Fasting Glucose resu lt from 100 to 125 mg/dL suggests IMPAIRED HOMEOSTASIS per A.D.A. criteria. Potassium [Moles/Vol] 4.2 mmol/L 3.5-5.1 [facility] Sodium [Moles/Vol] 135 mmol/L 136-145 [facility] - Chemistry and C hemistry - challengeOrdered By: Rachel Velez on 04-25-2023 CO2 [Moles/Vol] 25.0 mmol/L 21.0-32.0 [facility] Urea nitrogen/Creatinine [Mass ratio] 14.4 mg/mg 10- [facility] No Panel InformationOrdered By: Rachel Velez on 04-25-2023 Estimated Creatinine Clearance Calc 30.50 ml/min [facility] Estimated GFR (MDRD) Amer 58 mL/min >60 [facility] Comment on above: GFR Calc Estimated GFR (MDRD) Non-Af Amer 48 mL/min >60 [facility] Comment on above: Non- GFR Calc Serum or plasma calcium ata urement (mass/volume)Ordered By: Rachel Velez on 04-25-2023 Calcium [Mass/Vol] 8.5 mg/dL 8.5-10.1 [facility] Serum or plasma creatinine m easurement (mass/volume)Ordered By: Rachel Velez on 04-25-2023 Creatinine [Mass/Vol] 1.18 mg/dL 0.55-1.02 [facility] Comment on above: The validity of the calculated GFR & GFRAA in patients over 70 years has not been determined. Clinical correlation is essential. Serum or plasma urea nitroge n measurement (mass/volume)Ordered By: Rachel Velez on 04-25-2023 Urea nitrogen [Mass/Vol] 17 mg/dL 7-18 [facility] Thin prep Papanicolaou smear with manual screeningOrdered By: Rachel Velez on 04-25-2023 Thin prep Papanicolaou smear with manual screening 6 5-15 [facility] Basophil percentageOrdered B y: Debora Toussaint on 04-24-2023 Chloride [Moles/Vol] 105 mmol/L 98-107 [facility] Glucose [Mass/Vol] 167 mg/dL 74-106 [facility] Comment on above: Fasting Glucose resu lt greater than or equal to 126 mg/dL suggests DIABETES MELLITUS per A.D.A. criteria. Potassium [Moles/Vol] 4.1 mmol/L 3.5-5.1 [facility] Sodium [Moles/Vol] 131 mmol/L 136-145 [facility] WBC (Bld) [#/Vol] 6.1 10*3/uL 4.4-11.0 [facility] Blood erythrocytes count (nu mber/volume)Ordered By: Debora Toussaint on 04-24-2023 RBC (Bld) [#/Vol] 3.43 10*6/uL 4.2-5.4 [facility] Blood hemoglobin measurement (mass/volume)Ordered By: Debora Toussaint on 04-24-2023 Hemoglobin (Bld) [Mass/Vol] 10.9 g/dL 12.0-15.0 [facility] Blood platelet mean volumeOr dered By: Debora Toussaint on 04-24-2023 Platelet mean volume (Bld) [Entitic vol] 9.4 fL 6.2-12.0 [facility] Determination of erythrocyte mean corpuscular volume (MCV)Ordered By: Debora Toussaint on 04-24-2023 MCV (RBC) [Entitic vol] 95.9 fL 81-99 [facility] Hematocrit Auto (Bld) [Volum e fraction]Ordered By: Debora Toussaint on 04-24-2023 Hematocrit (Bld) [Volume fraction] 32.9 % 37-47 [facility] - Chemistry and C hemistry - challengeOrdered By: Debora Toussaint on 04-24-2023 CO2 [Moles/Vol] 24.0 mmol/L 21.0-32.0 [facility] Urea nitrogen/Creatinine [Mass ratio] 14.8 mg/mg 10-20 [facility] - Hematology and Cell countsOrdered By: Debora Toussaint on 04-24-2023 Erythrocyte distribution width (RBC) [Entitic vol] 44.6 fL 35.1-43.9 [facility] Erythrocyte distribution width (RBC) [Ratio] 12.8 % 11.6-14.6 [facility] MCH (RBC) [Entitic mass] 31.8 pg 27.0-32.0 [facility] MCHC Auto (RBC) [Mass/Vol]Or dered By: Debora Toussaint on 04-24-2023 MCHC (RBC) [Mass/Vol] 33.1 g/dL 32-36 [facility] No Panel InformationOrdered By: Debora Toussaint on 04-24-2023 Estimated GFR (MDRD) Amer 55 mL/min >60 [facility] Comment on above: GFR Calc Estimated GFR (MDRD) Non-Af Amer 46 mL/min >60 [facility] Comment on above: Non- GFR Calc Platelets bldOrdered By: Graeme Toussaint on 04-24-2023 Platelets (Bld) [#/Vol] 349 10*3/uL 150-450 [facility] Serum or plasma calcium ata urement (mass/volume)Ordered By: Debora Toussaint on 04-24-2023 Calcium [Mass/Vol] 8.7 mg/dL 8.5-10.1 [facility] Serum or plasma creatinine m easurement (mass/volume)Ordered By: Debora Toussaint on 04-24-2023 Creatinine [Mass/Vol] 1.22 mg/dL 0.55-1.02 [facility] Comment on above: The validity of the calculated GFR & GFRAA in patients over 70 years has not been determined. Clinical correlation is essential. Serum or plasma urea nitroge n measurement (mass/volume)Ordered By: Debora Toussaint on 04-24-2023 Urea nitrogen [Mass/Vol] 18 mg/dL 7-18 [facility] Thin prep Papanicolaou smear with manual screeningOrdered By: Debora Toussaint on 04-24-2023 Thin prep Papanicolaou smear with manual screening 2 5-15 [facility] Bilirubin Test strip Ql (U)O rdered By: Bassam Johnson on 01-06-2023 Bilirubin Ql (U) Negative Negative [facility] Culture, urineOrdered By: Belen Johnson on 01-06-2023 Bacteria identified Cx Nom (U) Escherichia coli [facility] Ketones Test strip Ql (U)Ord ered By: Bassam Johnson on 01-06-2023 Ketones Ql (U) Negative Negative [facility] Nitrite Test strip Ql (U)Ord ered By: Bassam Johnson on 01-06-2023 Nitrite Ql (U) Negative Negative [facility] Protein Test strip Ql (U)Ord ered By: Bassam Johnson on 01-06-2023 Protein Ql (U) 15 mg/dl Negative [facility] Urine blood detectionOrdered By: Bassam Johnson on 01-06-2023 RBC Ql (U) 10 /ul Negative [facility] Urine clarityOrdered By: Sinai Johnson on 01-06-2023 Clarity (U) Sl. Cloudy Clear [facility] Urine color determinationOrd ered By: Bassam Johnson on 01-06-2023 Color (U) Yellow Yellow [facility] Urine glucose detectionOrder ed By: Bassam Johnson on 01-06-2023 Glucose Ql (U) Normal mg/dl Normal [facility] Urine leukocyte esterase det ection by dipstickOrdered By: Bassam Johnson on 01-06-2023 Leukocyte esterase Test strip Ql (U) 500 /ul Negative [facility] Urine pHOrdered By: Bassam Lee on 01-06-2023 pH (U) 6.0 [pH] 5.0 - 8.0 [facility] Urine specific gravity measu rementOrdered By: Bassam Johnson on 01-06-2023 Specific gravity (U) [Rel density] 1.015 1.002-1.030 [facility] Urobilinogen Auto test strip Ql (U)Ordered By: Bassam Johnson on 01-06-2023 Urobilinogen Ql (U) Normal mg/dl Normal [facility] Laboratory - Chemistry and C hemistry - challengeon 12-28-2021 Bilirubin Ql (U) Negative [facility] Work Phone: Glucose Ql (U) Negative [facility] Work Phone: Ketones Ql (U) Small (15+) [facility] Work Phone: pH (U) 5.0 [pH] [facility] Work Phone: Specific gravity (U) [Rel density] 1.025 [facility] Work Phone: Urobilinogen (U) [Mass/Vol] 0.1329574 mg/dL [facility] Work Phone: Laboratory - Hematology and Cell countson 12-28-2021 Hemoglobin Ql (U) Negative [facility] Work Phone: Laboratory - Specimen inform ationon 12-28-2021 Clarity (U) Cloudy [facility] Work Phone: Color (U) Yellow [facility] Work Phone: Laboratory - Urinalysison Nitrite Ql (U) Negative [facility] Work Phone: Protein Ql (U) 1+ [facility] Work Phone: No Panel Informationon 12-28 Urine Leukocytes Positive [facility] Work Phone: Absolute lymphocyte counton 11-24-2021 Lymphocytes Auto (Unsp spec) [#/Vol] 1.82 10*3/uL 0.83-4.51 [facility] Work Phone: Basophil percentageon 2021 Basophils/100 WBC (Bld) 0.7 % 0-1 [facility] Work Phone: Bilirubin [Mass/Vol] 0.40 mg/dL 0.20-1.00 [facility] Work Phone: Comment on above: For patients on eltr ombopag therapy, use of Dimension Bruning TBIL is not recommended. Chloride [Moles/Vol] 106 mmol/L 98-107 [facility] Work Phone: Eosinophils/100 WBC (Bld) 2.6 % 0-5 [facility] Work Phone: Glucose [Mass/Vol] 90 mg/dL 74-106 [facility] Work Phone: Neutrophils (Bld) [#/Vol] 4.1 10*3/uL 2.0-7.7 [facility] Work Phone: Neutrophils/100 WBC (Bld) 59.9 % 47-70 [facility] Work Phone: Potassium [Moles/Vol] 4.5 mmol/L 3.5-5.1 [facility] Work Phone: Protein [Mass/Vol] 6.7 g/dL 6.4-8.2 [facility] Work Phone: Sodium [Moles/Vol] 136 mmol/L 136-145 [facility] Work Phone: WBC (Bld) [#/Vol] 6.9 10*3/uL 4.4-11.0 [facility]: Blood erythrocytes count (nu mber/volume)on 11-24-2021 RBC (Bld) [#/Vol] 3.38 10*6/uL 4.2-5.4 [facility] Work Phone: Blood hemoglobin measurement (mass/volume)on 11-24-2021 Hemoglobin (Bld) [Mass/Vol] 10.8 g/dL 12.0-15.0 [facility] Work Phone: Blood lymphocytes/100 leukoc yteson 11-24-2021 Lymphocytes/100 WBC (Bld) 26.4 % 19-41 [facility] Work Phone: Blood monocytes/100 leukocyt eson 11-24-2021 Monocytes/100 WBC (Bld) 10.3 % 0-10 [facility] Work Phone: Blood platelet mean volumeon 11-24-2021 Platelet mean volume (Bld) [Entitic vol] 9.1 fL 6.2-12.0 [facility] Work Phone: Determination of erythrocyte mean corpuscular volume (MCV)on 11-24-2021 MCV (RBC) [Entitic vol] 94.7 fL 81-99 [facility] Work Phone: Hematocrit Auto (Bld) [Volum e fraction]on 11-24-2021 Hematocrit (Bld) [Volume fraction] 32.0 % 37-47 [facility] Work Phone: Laboratory - Chemistry and C hemistry - challengeon 11-24-2021 ALP [Catalytic activity/Vol] 51 U/L 45-117 [facility] Work Phone: ALT [Catalytic activity/Vol] 22 U/L 13-56 [facility] Work Phone: CO2 [Moles/Vol] 26.0 mmol/L 21.0-32.0 [facility] Work Phone: Globulin (S) [Mass/Vol] 3.4 g/dL 2.2-4.2 [facility] Work Phone: Urea nitrogen/Creatinine [Mass ratio] 17.7 mg/mg 10-20 [facility] Work Phone: Laboratory - Hematology and Cell countson 11-24-2021 Erythrocyte distribution width (RBC) [Entitic vol] 43.9 fL 35.1-43.9 [facility] Work Phone: Erythrocyte distribution width (RBC) [Ratio] 12.8 % 11.6-14.6 [facility] Work Phone: Immature granulocytes/100 WBC (Bld) 0.100 % 0.0-0.9 [facility] Work Phone: Comment on above: IG% - Immature Granu locytes (promyelocytes, myelocytes and metamyelocytes) > 1% indicates that a LEFT SHIFT is Present. MCH (RBC) [Entitic mass] 32.0 pg 27.0-32.0 [facility] Work Phone: Nucleated RBC/100 WBC (Bld) [Ratio] 0 % 0-5 [facility] Work Phone: MCHC Auto (RBC) [Mass/Vol]on 11-24-2021 MCHC (RBC) [Mass/Vol] 33.8 g/dL 32-36 [facility] Work Phone: No Panel Informationon 11-24 Estimated Creatinine Clearance Calc 33.96 ml/min [facility] Work Phone: Estimated GFR (MDRD) Amer 61 mL/min >60 [facility] Work Phone: Comment on above: GFR Calc Estimated GFR (MDRD) Non-Af Amer 50 mL/min >60 [facility] Work Phone: Comment on above: Non- GFR Calc Platelets bldon 11-24-2021 Platelets (Bld) [#/Vol] 299 10*3/uL 150-450 [facility] Work Phone: Serum or plasma albumin ata urement (mass/volume)on 11-24-2021 Albumin [Mass/Vol] 3.3 g/dL 3.2-5.0 [facility] Work Phone: Serum or plasma albumin/glob ulin mass ratioon 11-24-2021 Albumin/Globulin [Mass ratio] 1.0 {ratio} 0.9-2.4 [facility] Work Phone: Serum or plasma calcium ata urement (mass/volume)on 11-24-2021 Calcium [Mass/Vol] 8.5 mg/dL 8.5-10.1 [facility] Work Phone: Serum or plasma creatinine m easurement (mass/volume)on 11-24-2021 Creatinine [Mass/Vol] 1.13 mg/dL 0.55-1.02 [facility] Work Phone: Comment on above: The validity of the calculated GFR & GFRAA in patients over 70 years has not been determined. Clinical correlation is essential. Serum or plasma urea nitroge n measurement (mass/volume)on 11-24-2021 Urea nitrogen [Mass/Vol] 20 mg/dL 7-18 [facility] Work Phone: Thin prep Papanicolaou smear with manual screeningon 11-24-2021 Thin prep Papanicolaou smear with manual screening 22 U/L 15-37 [facility] Work Phone: Thin prep Papanicolaou smear with manual screening 4 5-15 [facility] Work Phone: Absolute lymphocyte counton 11-22-2021 Lymphocytes Auto (Unsp spec) [#/Vol] 2.36 10*3/uL 0.83-4.51 [facility] Work Phone: Basophil percentageon 2021 Basophils/100 WBC (Bld) 0.9 % 0-1 [facility] Work Phone: Bilirubin [Mass/Vol] 0.40 mg/dL 0.20-1.00 [facility] Work Phone: Comment on above: For patients on eltr ombopag therapy, use of Dimension Bruning TBIL is not recommended. Chloride [Moles/Vol] 101 mmol/L 98-107 [facility] Work Phone: Eosinophils/100 WBC (Bld) 2.2 % 0-5 [facility] Work Phone: Glucose [Mass/Vol] 112 mg/dL 74-106 [facility] Work Phone: Comment on above: Fasting Glucose resu lt from 100 to 125 mg/dL suggests IMPAIRED HOMEOSTASIS per A.D.A. criteria. Neutrophils (Bld) [#/Vol] 6.9 10*3/uL 2.0-7.7 [facility] Work Phone: Neutrophils/100 WBC (Bld) 66.1 % 47-70 [facility] Work Phone: Potassium [Moles/Vol] 4.2 mmol/L 3.5-5.1 [facility] Work Phone: Protein [Mass/Vol] 7.4 g/dL 6.4-8.2 [facility] Work Phone: Sodium [Moles/Vol] 134 mmol/L 136-145 [facility] Work Phone: WBC (Bld) [#/Vol] 10.4 10*3/uL 4.4-11.0 [facility] Work Phone: Blood erythrocytes count (nu mber/volume)on 11-22-2021 RBC (Bld) [#/Vol] 3.63 10*6/uL 4.2-5.4 [facility] Work Phone: Blood hemoglobin measurement (mass/volume)on 11-22-2021 Hemoglobin (Bld) [Mass/Vol] 11.6 g/dL 12.0-15.0 [facility] Work Phone: Blood lymphocytes/100 leukoc yteson 11-22-2021 Lymphocytes/100 WBC (Bld) 22.8 % 19-41 [facility] Work Phone: Blood monocytes/100 leukocyt eson 11-22-2021 Monocytes/100 WBC (Bld) 7.1 % 0-10 [facility] Work Phone: Blood platelet mean volumeon 11-22-2021 Platelet mean volume (Bld) [Entitic vol] 9.3 fL 6.2-12.0 [facility] Work Phone: Determination of erythrocyte mean corpuscular volume (MCV)on 11-22-2021 MCV (RBC) [Entitic vol] 93.7 fL 81-99 [facility] Work Phone: Direct bilirubinon Bilirubin.direct [Mass/Vol] 0.11 mg/dL 0.00-0.30 [facility] Work Phone: Hematocrit Auto (Bld) [Volum e fraction]on 11-22-2021 Hematocrit (Bld) [Volume fraction] 34.0 % 37-47 [facility] Work Phone: Laboratory - Chemistry and C hemistry - challengeon 11-22-2021 ALP [Catalytic activity/Vol] 62 U/L 45-117 [facility] Work Phone: ALT [Catalytic activity/Vol] 27 U/L 13-56 [facility] Work Phone: CO2 [Moles/Vol] 26.0 mmol/L 21.0-32.0 [facility] Work Phone: Globulin (S) [Mass/Vol] 3.4 g/dL 2.2-4.2 [facility] Work Phone: Lipase [Catalytic activity/Vol] 291 U/L 73-393 [facility] Work Phone: Urea nitrogen/Creatinine [Mass ratio] 16.3 mg/mg 10-20 [facility] Work Phone: Laboratory - Hematology and Cell countson 11-22-2021 Erythrocyte distribution width (RBC) [Entitic vol] 43.0 fL 35.1-43.9 [facility] Work Phone: Erythrocyte distribution width (RBC) [Ratio] 12.4 % 11.6-14.6 [facility] Work Phone: Immature granulocytes/100 WBC (Bld) 0.900 % 0.0-0.9 [facility] Work Phone: Comment on above: IG% - Immature Granu locytes (promyelocytes, myelocytes and metamyelocytes) > 1% indicates that a LEFT SHIFT is Present. MCH (RBC) [Entitic mass] 32.0 pg 27.0-32.0 [facility] Work Phone: Nucleated RBC/100 WBC (Bld) [Ratio] 0 % 0-5 [facility] Work Phone: MCHC Auto (RBC) [Mass/Vol]on 11-22-2021 MCHC (RBC) [Mass/Vol] 34.1 g/dL 32-36 [facility] Work Phone: No Panel Informationon 11-22 Estimated Creatinine Clearance Calc 27.21 ml/min [facility] Work Phone: Estimated GFR (MDRD) Amer 47 mL/min >60 [facility] Work Phone: Comment on above: GFR Calc Estimated GFR (MDRD) Non-Af Amer 39 mL/min >60 [facility] Work Phone: Comment on above: Non- GFR Calc Troponin I High Sensitivity 18 pg/mL 3.0-54.0 [facility] Work Phone: Comment on above: Please Note: New Anne t Units and Gender Specific Reference Ranges. For more information see Policy Stat Procedure Bruning High Sensitivity Troponin (TNIH) and attachments. Platelets bldon 11-22-2021 Platelets (Bld) [#/Vol] 360 10*3/uL 150-450 [facility] Work Phone: Serum or plasma albumin ata urement (mass/volume)on 11-22-2021 Albumin [Mass/Vol] 4.0 g/dL 3.2-5.0 [facility] Work Phone: Serum or plasma calcium ata urement (mass/volume)on 11-22-2021 Calcium [Mass/Vol] 9.2 mg/dL 8.5-10.1 [facility] Work Phone: Serum or plasma creatinine m easurement (mass/volume)on 11-22-2021 Creatinine [Mass/Vol] 1.41 mg/dL 0.55-1.02 [facility] Work Phone: Comment on above: The validity of the calculated GFR & GFRAA in patients over 70 years has not been determined. Clinical correlation is essential. Serum or plasma urea nitroge n measurement (mass/volume)on 11-22-2021 Urea nitrogen [Mass/Vol] 23 mg/dL 7-18 [facility] Work Phone: Thin prep Papanicolaou smear with manual screeningon 11-22-2021 Thin prep Papanicolaou smear with manual screening 20 U/L 15-37 [facility] Work Phone: Thin prep Papanicolaou smear with manual screening 7 5-15 [facility] Work Phone: Culture, urineon 08-12-2021 Bacteria identified Cx Nom (U) Escherichia coli [facility] Work Phone: Gram stain for investigation of transfusion reactionon 08-12-2021 Microscopic observation Gram stain Nom (Unsp spec) [facility] Work Phone: Laboratory - Chemistry and C hemistry - challengeon 08-12-2021 Bilirubin Ql (U) Negative [facility] Work Phone: Glucose Ql (U) Negative [facility] Work Phone: Ketones Ql (U) Negative [facility] Work Phone: pH (U) 8.5 [pH] [facility] Work Phone: Specific gravity (U) [Rel density] 1.005 [facility] Work Phone: Urobilinogen (U) [Mass/Vol] Negative [facility] Work Phone: Laboratory - Hematology and Cell countson 08-12-2021 Hemoglobin Ql (U) Negative [facility] Work Phone: Laboratory - Specimen inform ationon 08-12-2021 Clarity (U) Clear [facility] Work Phone: Color (U) YELLOW [facility] Work Phone: Laboratory - Urinalysison Nitrite Ql (U) Negative [facility] Work Phone: Protein Ql (U) Negative [facility] Work Phone: No Panel Informationon 08-12 Urine Leukocytes Positive [facility] Work Phone: Urine Non-Hemolyzed Blood Negative [facility] Work Phone: Thin prep Papanicolaou smear with manual screeningon 08-12-2021 Genital Culture GNR lactose bread wrapper [facility] Work Phone: Office Visiton 05-04-2017 Documentation of current medications (procedure) Done Invalid Interpretation Code [facility] Work Phone: Tobacco use CPHS Never smoker Invalid Interpretation Code [facility] Work Phone: Office Visiton 04-04-2017 Documentation of current medications (procedure) Done Invalid Interpretation Code [facility] Work Phone: Protein mass conc Done Invalid Interpretation Code [facility] Work Phone: Tobacco smoking status NHIS Never smoker Invalid Interpretation Code [facility] Work Phone: Tobacco use CPHS Never smoker Invalid Interpretation Code [facility] Work Phone: Office Visiton 03-07-2017 Documentation of current medications (procedure) Done Invalid Interpretation Code [facility] Work Phone: Tobacco use CPHS Never smoker Invalid Interpretation Code [facility] Work Phone: Office Visiton 02-07-2017 Documentation of current medications (procedure) Done Invalid Interpretation Code [facility] Work Phone: Office Visiton 01-17-2017 Documentation of current medications (procedure) Done Invalid Interpretation Code [facility] Work Phone: Protein mass conc Done [facility] Work Phone: Tobacco smoking status NHIS Never smoker [facility] Work Phone: Tobacco use CPHS Never smoker Invalid Interpretation Code [facility] Work Phone: Office Visiton 11-08-2016 Documentation of current medications (procedure) Done Invalid Interpretation Code [facility] Work Phone: Tobacco smoking status NHIS Never smoker [facility] Work Phone: Tobacco use CPHS Never smoker Invalid Interpretation Code [facility] Work Phone: Culture, urine Bacteria identified Cx Nom (U) Presumptive E. coli [facility] Work Phone: Vital Signs Date Time Vital Sign Value Performing Clinician Facility 01-22-2025 03:00-0400 Diastolic blood pressure 69 mm[Hg] Dr. Bassam Johnson DO Work Phone: [facility] 01-22-2025 03:00-0400 Heart rate 58 /min Dr. Bassam Johnson DO Work Phone: [facility] 01-22-2025 03:00-0400 Respiratory rate 18 /min Dr. Bassam Johnson DO Work Phone: [facility] 01-22-2025 03:00-0400 SaO2% (BldA) [Mass fraction] 100 % Dr. Bassam Johnson DO Work Phone: [facility] 01-22-2025 03:00-0400 Systolic blood pressure 149 mm[Hg] Dr. Bassam Johnson DO Work Phone: [facility] 01-22-2025 01:56-0400 Body temperature 98 [degF] Dr. Bassam Johnson DO Work Phone: 7(649)830-367053 [address] 01-21-2025 21:42-0400 Body height 154.[address] Bassam Johnson DO Work Phone: 5(442)439-625053 [address] 01-21-2025 21:42-0400 Body mass index (BMI) [Ratio] 27.9 kg/m2 Dr. Bassam Johnson DO Work Phone: 3(354)689-663353 [address] 01-21-2025 21:42-0400 Body weight 67.[address] Bassam Johnson DO Work Phone: 3(412)814-146764 [place] [address] 11-18-2024 14:29-0400 Diastolic blood pressure 76 mm[Hg] Dr. Bassam Johnson DO Work Phone: 4(290)397-222064 [place] [address] 11-18-2024 14:29-0400 Systolic blood pressure 145 mm[Hg] Dr. Bassam Johnson DO Work Phone: 1(684)885-713664 [place] [address] 11-18-2024 14:13-0400 Body height 154.[address] Bassam Johnson DO Work Phone: 4(855)249-179864 [place] [address] 11-18-2024 14:13-0400 Body mass index (BMI) [Ratio] 28 kg/m2 Dr. Bassam Johnson DO Work Phone: 3(361)939-944264 [place] [address] 11-18-2024 14:13-0400 Body weight 67.[address] Bassam Johnson DO Work Phone: 1(838)419-462064 [place] [address] 05-29-2024 08:45-0500 Body temperature 98.3 [degF] Dr. Bassam Johnson DO Work Phone: 2(674)228-696064 [place] [address] 05-29-2024 08:45-0500 Diastolic blood pressure 47 mm[Hg] Dr. Bassam Johnson DO Work Phone: 0(552)861-942953 [address] 05-29-2024 08:45-0500 Heart rate 62 /min Dr. Bassam Johnson DO Work Phone: 3(037)293-248766 [place] [address] 05-29-2024 08:45-0500 Respiratory rate 16 /min Dr. Bassam Johnson DO Work Phone: 7(073)117-364864 [place] [address] 05-29-2024 08:45-0500 SaO2% (BldA) [Mass fraction] 95 % Dr. Bassam Johnson DO Work Phone: 6(955)099-617564 [place] [address] 05-29-2024 08:45-0500 Systolic blood pressure 95 mm[Hg] Dr. Bassam Johnson DO Work Phone: 5(313)243-857664 [place] [address] 05-29-2024 06:39-0500 Body height 154.[address] Bassam Johnson DO Work Phone: 4(308)140-595164 [place] [address] 05-29-2024 06:39-0500 Body mass index (BMI) [Ratio] 26.6 kg/m2 Dr. Bassam Johnson DO Work Phone: 5(303)236-242164 [place] [address] 05-29-2024 06:39-0500 Body weight [address] Bassam Johnson DO Work Phone: 7(915)989-073064 [place] [address] 10-20-2023 14:53-0400 Body height 152.[address] Bassam Johnson Work Phone: 7(681)088-349564 [place] [address] 10-20-2023 14:41-0400 Body mass index (BMI) [Ratio] 28.3 kg/m2 Dr. Bassam Johnson Work Phone: 4(687)761-292564 [place] [address] 10-20-2023 14:41-0400 Body weight 65.[address] Bassam Johnson Work Phone: 0(251)474-484464 [place] [address] 10-20-2023 14:41-0400 Diastolic blood pressure 69 mm[Hg] Dr. Bassam Johnson Work Phone: 7(874)607-616064 [place] [address] 10-20-2023 14:41-0400 Systolic blood pressure 128 mm[Hg] Dr. Bassam Johnson Work Phone: 1(776)402-102064 [place] [address] 04-25-2023 18:01-0400 Diastolic blood pressure 68 mm[Hg] Dr. Bassam Johnson Work Phone: 3(339)686-781264 [place] [address] 04-25-2023 18:01-0400 Heart rate 58 /min Dr. Bassam Johnson Work Phone: 2(795)249-820564 [place] [address] 04-25-2023 18:01-0400 Respiratory rate 16 /min Dr. Bassam Johnson Work Phone: 8(269)165-231064 [place] [address] 04-25-2023 18:01-0400 SaO2% (BldA) [Mass fraction] 100 % Dr. Bassam Johnson Work Phone: 9(708)640-396764 [place] [address] 04-25-2023 18:01-0400 Systolic blood pressure 146 mm[Hg] Dr. Bassam Johnson Work Phone: 6(853)019-443064 [place] [address] 04-25-2023 16:06-0400 Body height 152.[address] Bassam Johnson Work Phone: 1(868)152-828064 [place] [address] 04-25-2023 16:06-0400 Body mass index (BMI) [Ratio] 26.7 kg/m2 Dr. Bassam Johnson Work Phone: 6(164)383-626764 [place] [address] 04-25-2023 16:06-0400 Body temperature 98 [degF] Dr. Bassam Johnson Work Phone: 4(481)852-004464 [place] [address] 04-25-2023 16:06-0400 Body weight 62.[address] Bassam Johnson Work Phone: 3(599)509-345464 [place] [address] 12-22-2022 10:30-0400 Body temperature 96.9 [degF] Dr. Bassam Johnson Work Phone: 3(899)329-363064 [place] [address] 12-22-2022 10:30-0400 Diastolic blood pressure 57 mm[Hg] Dr. Bassam Johnson Work Phone: 4(017)862-152564 [place] [address] 12-22-2022 10:30-0400 Heart rate 75 /min Dr. Bassam Johnson Work Phone: 6(816)840-256764 [place] [address] 12-22-2022 10:30-0400 Respiratory rate 17 /min Dr. Bassam Johnson Work Phone: 7(443)119-972264 [place] [address] 12-22-2022 10:30-0400 SaO2% (BldA) [Mass fraction] 97 % Dr. Bassam Johnson Work Phone: 3(325)863-819064 [place] [address] 12-22-2022 10:30-0400 Systolic blood pressure 130 mm[Hg] Dr. Bassam Johnson Work Phone: 4(561)454-740864 [place] [address] 12-22-2022 06:25-0400 Body height 152.[address] Bassam Johnson Work Phone: 3(324)642-459164 [place] [address] 12-22-2022 06:25-0400 Body mass index (BMI) [Ratio] 26.3 kg/m2 Dr. Bassam Johnson Work Phone: 3(859)328-699864 [place] [address] 12-22-2022 06:25-0400 Body weight 61.[address] Bassam Johnson Work Phone: 1(134)653-899664 [place] [address] 11-21-2022 13:20-0400 Body mass index (BMI) [Ratio] 28.3 kg/m2 Dr. Bassam Johnson Work Phone: 6(293)034-481064 [place] [address] 11-21-2022 13:20-0400 Body weight 65.[address] Bassam Johnson Work Phone: 6(184)216-078064 [place] [address] 11-21-2022 13:20-0400 Diastolic blood pressure 76 mm[Hg] Dr. Bassam Johnson Work Phone: 4(509)556-908464 [place] [address] 11-21-2022 13:20-0400 Respiratory rate 18 /min Dr. Bassam Johnson Work Phone: 8(372)134-765664 [place] [address] 11-21-2022 13:20-0400 Systolic blood pressure 146 mm[Hg] Dr. Bassam Johnson Work Phone: 8(270)060-463964 [place] [address] 11-16-2022 21:28-0400 Respiratory rate 18 /min Dr. Bassam Johnson Work Phone: 7(342)681-903564 [place] [address] 11-16-2022 19:03-0400 Body mass index (BMI) [Ratio] 28.4 kg/m2 Dr. Bassam Johnson Work Phone: 2(524)541-723364 [place] [address] 11-16-2022 19:03-0400 Body temperature 97.5 [degF] Dr. Bassam Johnson Work Phone: 4(463)663-901264 [place] [address] 11-16-2022 19:03-0400 Body weight 66.[address] Bassam Johnson Work Phone: 1(027)733-701264 [place] [address] 11-16-2022 19:03-0400 Diastolic blood pressure 78 mm[Hg] Dr. Bassam Johnson Work Phone: 4(176)089-988964 [place] [address] 11-16-2022 19:03-0400 Heart rate 70 /min Dr. Bassam Johnson Work Phone: 7(588)073-476964 [place] [address] 11-16-2022 19:03-0400 SaO2% (BldA) [Mass fraction] 98 % Dr. Bassam Johnson Work Phone: 0(823)294-929964 [place] [address] 11-16-2022 19:03-0400 Systolic blood pressure 156 mm[Hg] Dr. Bassam Johnson Work Phone: 6(992)549-913264 [place] [address] 09-22-2022 10:34-0400 Body height 152.[address] Bassam Johnson Work Phone: 6(952)060-738464 [place] [address] 09-22-2022 10:34-0400 Body mass index (BMI) [Ratio] 27.3 kg/m2 Dr. Bassam Johnson Work Phone: 9(463)856-106964 [place] [address] 09-22-2022 10:34-0400 Body temperature 97.5 [degF] Dr. Bassam Johnson Work Phone: 7(429)455-014364 [place] [address] 09-22-2022 10:34-0400 Body weight 63.[address] Bassam Johnson Work Phone: 1(968)510-783764 [place] [address] 09-22-2022 10:34-0400 Diastolic blood pressure 92 mm[Hg] Dr. Bassam Johnson Work Phone: 4(875)933-651266 [place] [address] 09-22-2022 10:34-0400 Heart rate 67 /min Dr. Bassam Johnson Work Phone: 9(818)523-446064 [place] [address] 09-22-2022 10:34-0400 Respiratory rate 16 /min Dr. Bassam Johnson Work Phone: 3(077)243-093864 [place] [address] 09-22-2022 10:34-0400 SaO2% (BldA) [Mass fraction] 97 % Dr. Bassam Johnson Work Phone: 5(565)882-329864 [place] [address] 09-22-2022 10:34-0400 Systolic blood pressure 133 mm[Hg] Dr. Bassam Johnson Work Phone: 6(240)075-507864 [place] [address] 09-15-2022 13:11-0400 Body height 154.[address] Bassam Johnson Work Phone: 1(898)768-681564 [place] [address] 09-15-2022 13:11-0400 Body mass index (BMI) [Ratio] 26.6 kg/m2 Dr. Bassam Johnson Work Phone: 4(251)344-178564 [place] [address] 09-15-2022 13:11-0400 Body weight 64.[address] Bassam Johnson Work Phone: 7(800)772-356264 [place] [address] 09-15-2022 13:11-0400 Diastolic blood pressure 88 mm[Hg] Dr. Bassam Johnson Work Phone: 3(835)174-516264 [place] [address] 09-15-2022 13:11-0400 Systolic blood pressure 153 mm[Hg] Dr. Bassam Johnson Work Phone: 2(849)420-273564 [place] [address] 12-28-2021 13:56-0400 Body height 154.[address] Bassam Johnson Work Phone: 0(069)357-360864 [place] [address] Work Phone: 12-28-2021 13:56-0400 Body mass index (BMI) [Ratio] 26.1 kg/m2 Dr. Bassam Johnson Work Phone: 1(053)539-093766 [place] [address] Work Phone: 12-28-2021 13:56-0400 Body weight 62.[address] Bassam Johnson Work Phone: [facility] Work Phone: 11-24-2021 14:16-0400 Body temperature 98.9 [degF] Dr. Bassam Johnson Work Phone: [facility] Work Phone: 11-24-2021 14:16-0400 Diastolic blood pressure 93 mm[Hg] Dr. Bassam Johnson Work Phone: [facility] Work Phone: 11-24-2021 14:16-0400 Heart rate 63 /min Dr. Bassam Johnson Work Phone: [facility] Work Phone: 11-24-2021 14:16-0400 Respiratory rate 17 /min Dr. Bassam Johnson Work Phone: [facility] Work Phone: 11-24-2021 14:16-0400 SaO2% (BldA) [Mass fraction] 99 % Dr. Bassam Johnson Work Phone: [facility] Work Phone: 11-24-2021 14:16-0400 Systolic blood pressure 141 mm[Hg] Dr. Bassam Johnson Work Phone: [facility] Work Phone: 11-23-2021 15:52-0400 Body height 154.[address] Bassam Johnson Work Phone: [facility] Work Phone: 11-23-2021 15:52-0400 Body weight 63.[address] Bassam Johnson Work Phone: [facility] Work Phone: 11-23-2021 01:59-0400 Body temperature 97.7 [degF] Dr. Bassam Johnson Work Phone: [facility] Work Phone: 11-23-2021 01:59-0400 Diastolic blood pressure 70 mm[Hg] Dr. Bassam Johnson Work Phone: [facility] Work Phone: 11-23-2021 01:59-0400 Heart rate 71 /min Dr. Bassam Johnson Work Phone: [facility] Work Phone: 11-23-2021 01:59-0400 Respiratory rate 16 /min Dr. Bassam Johnson Work Phone: [facility] Work Phone: 11-23-2021 01:59-0400 SaO2% (BldA) [Mass fraction] 97 % Dr. Bassam Johnson Work Phone: [facility] Work Phone: 11-23-2021 01:59-0400 Systolic blood pressure 142 mm[Hg] Dr. Bassam Johnson Work Phone: [facility] Work Phone: 11-23-2021 01:57-0400 Body height 154.[address] Bassam Johnson Work Phone: [facility] Work Phone: 11-23-2021 01:57-0400 Body mass index (BMI) [Ratio] 26.6 kg/m2 Dr. Bassam Johnson Work Phone: [facility] Work Phone: 11-23-2021 01:57-0400 Body weight 63.[address] Bassam Johnson Work Phone: [facility] Work Phone: 09-02-2021 13:30-0500 Body mass index (BMI) [Ratio] 27.7 kg/m2 Dr. Bassam Johnson Work Phone: [facility] Work Phone: 09-02-2021 13:30-0500 Body temperature 97.4 [degF] Dr. Bassam Johnson Work Phone: [facility] Work Phone: 09-02-2021 13:30-0500 Body weight 64.[address] Bassam Johnson Work Phone: [facility] Work Phone: 09-02-2021 13:30-0500 Diastolic blood pressure 65 mm[Hg] Dr. Bassam Johnson Work Phone: [facility] Work Phone: 09-02-2021 13:30-0500 Heart rate 77 /min Dr. Bassam Johnson Work Phone: [facility] Work Phone: 09-02-2021 13:30-0500 Respiratory rate 17 /min Dr. Bassam Johnson Work Phone: [facility] Work Phone: 09-02-2021 13:30-0500 SaO2% (BldA) [Mass fraction] 97 % Dr. Bassam Johnson Work Phone: [facility] Work Phone: 09-02-2021 13:30-0500 Systolic blood pressure 143 mm[Hg] Dr. Bassam Johnson Work Phone: [facility] Work Phone: 09-02-2021 12:30-0500 Body mass index (BMI) [Ratio] 27.7 kg/m2 Dr. Bassam Johnson Work Phone: [facility] Work Phone: 09-02-2021 12:30-0500 Body temperature 97.4 [degF] Dr. Bassam Johnson Work Phone: [facility] Work Phone: 09-02-2021 12:30-0500 Body weight 64.[address] Bassam Johnson Work Phone: [facility] Work Phone: 09-02-2021 12:30-0500 Diastolic blood pressure 65 mm[Hg] Dr. Bassam Johnson Work Phone: [facility] Work Phone: 09-02-2021 12:30-0500 Heart rate 77 /min Dr. Bassam Johnson Work Phone: [facility] Work Phone: 09-02-2021 12:30-0500 Respiratory rate 17 /min Dr. Bassam Johnson Work Phone: [facility] Work Phone: 09-02-2021 12:30-0500 SaO2% (BldA) [Mass fraction] 97 % Dr. Bassam Johnson Work Phone: [facility] Work Phone: 09-02-2021 12:30-0500 Systolic blood pressure 143 mm[Hg] Dr. Bassam Johnson Work Phone: [facility] Work Phone: 08-26-2021 10:40-0500 Body mass index (BMI) [Ratio] 26.6 kg/m2 Dr. Bassam Johnson Work Phone: [facility] Work Phone: 08-26-2021 10:40-0500 Body weight 63.[address] Bassam Johnson Work Phone: [facility] Work Phone: 08-26-2021 10:40-0500 Diastolic blood pressure 70 mm[Hg] Dr. Bassam Johnson Work Phone: [facility] Work Phone: 08-26-2021 10:40-0500 Systolic blood pressure 110 mm[Hg] Dr. Bassam Johnson Work Phone: [facility] Work Phone: 08-12-2021 13:43-0500 Body weight 64.[address] Bassam Johnson Work Phone: [facility] Work Phone: 08-12-2021 13:43-0500 Diastolic blood pressure 70 mm[Hg] Dr. Bassam Johnson Work Phone: [facility] Work Phone: 08-12-2021 13:43-0500 Systolic blood pressure 138 mm[Hg] Dr. Bassam Johnson Work Phone: [facility] Work Phone: 05-17-2016 13:48-0500 BMI (Body Mass Index) 29.28 kg/m2 [facility] Work Phone: 05-17-2016 13:48-0500 Body weight 70.31 kg Cathy Fry [facility] Work Phone: 05-17-2016 13:48-0500 Height 154.94 cm [facility] Work Phone: 05-17-2016 13:48-0500 Weight 70.31 kg [facility] Work Phone: Encounters Encounter Date Encounter Type Care Provider Facility Start: 01-22-2025 Evaluation and management of inpatient Dr. Yaya Little MD -[facility] 3 Work Phone: Start: 01-22-[address] Bre Johnson DO Work Phone: -[facility] Surgical 3 Start: 12-31-2024 Non-patient / Non-visit Dr. Debora mixon MD -[facility] Work Phone: Start: 11-18-2024 Encounter for gynecological examination (general) (routine) without abnormal findings Lore Scanlon [facility] Start: 11-18-2024 End: 11-18-[address] Lore Scanlon MD -[facility] Work Phone: Start: 11-18-2024 End: 11-18-[address] Lore Scanlon MD [facility] Start: 11-18-2024 End: 11-18-[address] Bassam Johnson DO Work Phone: [facility] Work Phone: Start: 09-30-2024 End: 09-30-[address] Bassam Johnson DO Work Phone: [facility] Work Phone: Start: 09-30-2024 End: 09-30-[address] Bassam Johnson MD -Laboratory Work Phone: Start: 09-30-2024 End: 09-30-2024 ambulatory Bassam Johnson Facility:[facility] Start: 09-16-2024 End: 09-16-[address] Bassam Johnson DO Work Phone: [facility] Work Phone: Start: 09-16-2024 End: 09-16-[address] Lore Scanlon MD -Outpatient Breast Imaging Work Phone: Start: 09-16-2024 End: 09-16-2024 ambulatory Lore Scanlon Facility:[facility] Start: 05-29-2024 Non-patient / Non-visit Dr. Loli angulo MD -[facility] Start: 05-29-2024 End: 05-29-2024 Admission to same day surgery center Dr. Loli Chan MD -Endoscopy Work Phone: Start: 05-29-2024 End: 05-29-2024 ambulatory Bassam Johnson Facility:[facility] Start: 03-31-2024 End: 03-31-2024 Emergency department patient visit Hossein North Facility:[facility] Start: 03-21-2024 End: 03-21-2024 Emergency department patient visit Jose SerranojojocoreyPatGeronimo Facility:[facility] Start: 03-11-2024 ambulatory [facility] Facility:[facility] Start: 03-11-2024 ambulatory [facility] Start: 11-06-2023 End: 11-06-[address] Bassam Johnson Work Phone: [facility] Work Phone: Start: 11-06-2023 End: 11-06-[address] Bassam Johnson Work Phone: [facility] Work Phone: Start: 10-20-2023 End: 10-20-[address] Bassam Johnson Work Phone: [facility] Start: 10-20-2023 End: 10-20-[address] Bassam Johnson Work Phone: [facility] Work Phone: Start: 09-15-2023 End: 09-15-2023 ambulatory [facility] Work Phone: Start: 09-15-2023 End: 09-15-2023 Patient encounter procedure [facility]-Outpatient Breast Imaging Work Phone: Start: 05-17-2023 End: 05-17-2023 ambulatory [facility] Work Phone: Start: 05-17-2023 End: 05-17-2023 Patient encounter procedure [facility] Work Phone: Start: 04-25-2023 End: 04-25-2023 Emergency department patient visit Dr. Bassam Johnson Work Phone: [facility]-Emergency Department Work Phone: Start: 04-24-2023 End: 04-24-[address] Bassam Johnson Work Phone: [facility] Work Phone: Start: 04-24-2023 End: 04-24-[address] Bassam Johnson Work Phone: [facility] Work Phone: Start: 01-12-2023 End: 01-12-[address] Bassam Johnson Work Phone: [facility] Work Phone: Start: 01-06-2023 End: 01-06-[address] Bassam Johnson Work Phone: [facility] Work Phone: Start: 01-06-2023 End: 01-06-[address] Bassam Johnson Work Phone: [facility] Work Phone: Start: 12-22-2022 Non-patient / Non-visit Dr. Belen Johnson Work Phone: [facility] Start: 12-22-2022 End: 12-22-2022 Admission to same day surgery center Dr. Bassam Johnson Work Phone: [facility]-Surgical Day Care Start: 12-22-2022 End: 12-22-[address] Bassam Johnson Work Phone: [facility] Work Phone: Start: 11-21-2022 End: 11-21-[address] Bassam Johnson Work Phone: [facility] Start: 11-16-2022 End: 11-16-2022 Emergency department patient visit Dr. Bassam Johnson Work Phone: [facility]-Emergency Department Start: 09-29-2022 End: 09-29-[address] Bassam Johnson Work Phone: [facility] Work Phone: Start: 09-29-2022 End: 09-29-[address] Bassam Johnson Work Phone: [facility]-Ultrasound, [facility] Start: 09-22-2022 End: 09-22-2022 Emergency department patient visit Dr. Bassam Johnson Work Phone: [facility]-Emergency Department Start: 09-15-2022 End: 09-15-[address] Bassam Johnson Work Phone: [facility] Start: 09-12-2022 End: 09-12-[address] Bassam Johnson Work Phone: [facility] Work Phone: Start: 09-12-2022 End: 09-12-[address] Bassam Johnson Work Phone: [facility]-Outpatient Breast Imaging Start: 12-28-2021 End: 12-28-[address] Bassam Johnson Work Phone: [facility] Start: 12-28-2021 End: 12-28-[address] Bassam Johnson Work Phone: [facility]-Laboratory, Specimen Start: 11-24-2021 Non-patient / Non-visit Dr. Belen Johnson Work Phone: [facility] Start: 11-24-2021 Non-patient / Non-visit Dr. Belen Johnson Work Phone: [facility] Start: 11-23-2021 End: 11-24-2021 Evaluation and management of inpatient Dr. Bassam Johnson Work Phone: [facility]-Medical Surgical 3 Start: 11-23-2021 Non-patient / Non-visit Dr. Belen Johnson Work Phone: [facility] Start: 11-23-2021 Non-patient / Non-visit Dr. Belen Johnson Work Phone: [facility] Start: 11-23-2021 Evaluation and management of inpatient Dr. Bassam Johnson Work Phone: [facility]-Medical Surgical 3 Start: 10-13-2021 End: 10-13-[address] Bassam Johnson Work Phone: [facility] Start: 09-08-2021 End: 09-08-[address] Bassam Johnson Work Phone: [facility]-Outpatient Breast Imaging Start: 09-02-2021 End: 09-02-[address] Bassam Johnson Work Phone: [facility] Start: 08-26-[address] West Johnson Work Phone: [facility] Start: 08-26-2021 End: 08-26-[address] Bassam Johnson Work Phone: [facility] Start: 08-26-2021 End: 08-26-[address] Bassam Johnson Work Phone: [facility] Start: 08-12-2021 End: 08-12-[address] Bassam Johnson Work Phone: [facility]-Laboratory, Specimen Start: 08-12-2021 End: 08-12-[address] Bassam Johnson Work Phone: [facility] Procedures Date Procedure Procedure Detail Performing Clinician [...] admission, emergency, from emergency room, medical nature [facility] Start: 05-29-2024 Colonoscopy w/biopsy single/multiple COLONOSCOPY AND BIOPSY [facility] Start: 05-29-2024 Patient discharge [facility] Start: 04-25-2023 [facility] Start: 12-22-2022 Anesthesia hernia repair lower abdomen nos ANESTH REPAIR OF HERNIA [facility] Start: 12-22-2022 RPR AA HRN 1ST < 3 CM RDC RPR AA HRN 1ST < 3 CM RDC [facility] Start: 12-22-2022 Patient discharge [facility] Start: 11-24-2021 Patient discharge [facility] Work Phone: Start: 11-24-2021 Following clinical pathway protocol [facility] Work Phone: Start: 11-23-2021 Admission procedure [facility] Work Phone: Start: 11-23-2021 Nil by mouth [facility] Work Phone: Start: 11-23-2021 Following clinical pathway protocol [facility] Work Phone: Start: 11-23-2021 Application of intermittent pneumatic compression device [facility] Work Phone: Start: 11-23-2021 Assessment of risk of venous thromboembolism [facility] Work Phone: Start: 11-23-2021 Insertion of catheter into peripheral vein [facility] Work Phone: Start: 11-23-2021 Providing care according to standard [facility] Work Phone: Start: 11-23-2021 Provision of activity privileges [facility] Work Phone: Start: 11-23-2021 Referral to general surgeon [facility] Work Phone: Start: 11-23-2021 [facility] Work Phone: Start: 11-23-2021 Admission procedure [facility] Work Phone: Start: 08-26-2021 Patient referral [facility] Work Phone: Start: 05-04-2017 End: 05-04-2017 Appointment Appointment [facility] Work Phone: Start: 04-04-2017 End: 04-04-2017 Appointment Appointment [facility] Work Phone: Start: 03-22-2017 End: 03-22-2017 Appointment Appointment [facility] Work Phone: Start: 03-07-2017 End: 03-07-2017 Appointment Appointment [facility] Work Phone: Start: 02-07-2017 End: 02-07-2017 Appointment Appointment [facility] Work Phone: Start: 12-30-2016 End: 12-30-2016 Appointment Appointment [facility] Work Phone: Start: 11-08-2016 End: 11-08-2016 EMG EMG [facility] Work Phone: Start: 11-08-2016 End: 11-08-2016 Nerve Conduction Nerve Conduction [facility] Work Phone: Start: 11-08-2016 End: 11-08-2016 Appointment Appointment [facility] Work Phone: Start: 11-08-2016 End: 11-08-2016 EMG EMG [facility] Work Phone: Start: 11-08-2016 End: 11-08-2016 Nerve Conduction Nerve Conduction [facility] Work Phone: Start: 05-25-2016 End: 05-25-2016 Occupational Therapy General Occupational Therapy [facility], [address] [place] [address], [address] [facility] Work Phone: Start: 05-25-2016 End: 05-25-2016 Occupational Therapy General Occupational Therapy [facility], [address] [place] [address], [address] [facility] Work Phone: Start: 05-17-2016 End: 05-17-2016 Radex wrist complete minimum 3 views X-Ray, Wrist [facility] Work Phone: Start: 05-17-2016 End: 05-17-2016 X-ray exam of wrist X-Ray, Wrist [facility] Work Phone: DXA Bone [Mass/Area] Bone density [facility] Patient Education [facility] Work Phone: Patient referral [facility] Work Phone: US Pelvis [facility] US Pelvis transvaginal [facility] Immunizations Immunization Date Immunization Notes Care Provider Fa cility 05-13-2021 Covid (Pfizer) Dr. Bassam gu Work Phone: [facility] 04-14-2021 Influenza, high dose seasonal Dr. Bassam Johnson DO Work Phone: [facility] 04-14-2021 influenza, high dose seasonal, preservative-free Dr. Bassam Johnson Work Phone: [facility] 09-29-2020 Covid (Pfizer) Dr. Bassam gu Work Phone: [facility] 09-08-2020 Covid (Pfizer) Dr. Bassam gu Work Phone: [facility] 06-02-[address] Bassam Johnson Work Phone: [facility] Payers Date Payer Category Payer Self-pay [id number] 2014 Medicare [id number] 2014 Unknown [id number] 2014 Unknown [id number] Unknown [id number] 2.16.8 [id number] Unknown [id number] 2.16.8 [id number] Unknown [id number] 2.16.8 [id number] Unknown [id number] 2.16.8 [id number] Unknown [id number] 2.16.8 [id number] Unknown [id number] 2.16.8 [id number] Unknown [id number] 2.16.8 [id number] Unknown [id number] 2.16.8 [id number] Unknown [id number] 2.16.8 [id number] Social History Date Type Detail Facility Start: 11-22-2021 End: 04-25-2023 Tobacco smoking status NHIS Unknown if ever smoked [facility] Start: 09-01-2019 None [facility] Start: 09-01-2019 Spouse/ Signif icant Other [facility] Start: 09-01-2019 Non-smoker [facility] Start: 1950 Sex Assigned At Female [facility] Start: 05-29-2024 End: 01-21-2025 Tobacco smoking status NHIS Never smoked tobacco (finding) [facility] Start: 09-25-2024 End: 10-02-2024 Sex Female (finding) [facility] NEGATED: Highlighted row [facility] Medical Equipment Procedure Code Equipment Code Equipment Origin al Text Equipment Identifier Dates Repair, hernia, umbilical, using mesh ([id number]) Extra-gynaecologic al surgical mesh, composite-polymer [id number] 01 FDA Start: 12-22-2022 Goals Date Patient Goal Desired Activity /State Functional Status Date Assessment Result Facility 12-22-2022 Functional status Ambulates [facility] Work Phone: 11-24-2021 Functional status Ambulates [facility] Work Phone: Mental Status Date Assessment Result Facility 05-29-2024 Cognitive function Touch/Shaking [facility] Work Phone: 04-25-2023 Cognitive function Level Of Cons ciousness Awake;Alert;Appropriate;Follow s Commands [facility] Work Phone: 12-22-2022 Cognitive function Level Of Consciousness Sedated [facility] Work Phone: 12-22-2022 Cognitive function Patient Orien tation Person;Place;Time [facility] Work Phone: 09-22-2022 Cognitive function Level Of Cons ciousness Awake;Alert;Appropriate;Follow s Commands [facility] Work Phone: 11-24-2021 Cognitive function Voice/Name [facility] Work Phone: Clinical Notes 12-22-2022 to 01-22-2025 Note Date & Type Note Facility 01-22-2025 Radiology Diagnostic study note [facility] Imaging Services [address] [place] [address] Abdomen/Pelvis W IV Cont ONLY MR#: [id number] Acct: [id number] Name: ABY TELLES Rep #: [id number] : 1950 F 74 From: Margoth Garcia MD PCP: Dr. Bassam Johnson MD Status: PRE E R Study:Abdomen/Pelvis W IV Cont ONLY Date of E xam: 01/22/25 Exam# [id number] Ordering Dr: Aye Hackett DO PROCEDURE: ABDOMEN/PELVIS [...] No acute findings otherwise noted. Reading Location: [place] [address] CC: Dr. Bassam Johnson MD; Deon Hackett DO ~ Emissions Technician: Signed [facility] 01-22-2025 Discharge summary [facility] 11-18-2024 Evaluation note Diagnosis Onset Date Resolution Encounter for routine gynecological examination noneactive November 18, 2024 2:10pm [facility] Work Phone: 1(774) 917-656805-19-2025 Progress [facility]'s [address], [address] [place] [address] OFFICE VISIT Date of Service: 11/18/24 MR#: [id number] Acct: [id number] Name: ABY TELLES Rep #: [id number] : 1950 Provider: Dr. 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 Note Date/Time November 18, 2024 3:08p [facility]'s [address], [address] [place] [address] OFFICE VISIT Date of Service: 11/18/24 MR#: [id number] Acct: [id number] Name: ABY TELLES Rep #: [id number] : 1950 Provider: Dr. 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 Signature: Date (if applicable) CC: ~ [facility] Work Phone: 1(624) 546-250911-27-2024 Evaluation note* Diagnosis Onset Date Resolution Status Admit Date Encounter for screening for malignant neoplasm of colon acute [facility] 2023 6:12[facility] Work Phone: 1(613) 862-375411-27-2024 [facility] Medical Records Department [address] [place] [address] History Physical Exam 05/29/24 0655 MR#: [id number] Acct: [id number] Name: ABY TELLES Rep #: [id number] : 1950 73 From: Loli Chan MD PCP: Dr. Bassam Johnson MD Status:[facility] Location: [place] [address] HPI - General General Date of Service: 05/29/24 HPI Narrative ABY TELLES, is a 73 F who presents for screening colonoscopy. Patient never had previous colonoscopy. Patient denies any family history of colon cancer. Patient denies any chronic abdominal pain/nausea/vomiting/reflux. Patient has bowel movements daily denies any blood. [facility] Medical History Wears partial dentures Wears glasses [...] DAILY PRN PRN Anxiety 01/24/17 05/29/24 History ualwmpswhvty-Du-vnhy-minerals 1 ea PO DAILY supplement 01/24/17 05/28/24 [...] mg PO DAILY 05/09/22 05/29/24 History peg 951-pkdatdnijnpf-ulbwbjgg 1 1 drp EACH EYE BID PRN [...] of Breath: No Hoars (more content not included)...[facility]06-22-[address] Chan [facility] December 22, 2022 8:10am Note Date/Time December 22, 2022 8:09 am [facility] Medical Records Department [address] [place] [address] Instructions for Home/Discharge Instructions 12/22/2209 MR#: [id number] Acct: [id number] Name: ABY TELLES Rep #:[id number] : 1950 72 From: Loli Chan MD PCP: Dr. Bassam Jonhson MD Status:REG S DC Discharge Instructions Diet [...] weeks; after 5 PM and on call [phone] with any concerns. Test Results: Test results [...] 1,000 UNIT capsule 1,000 unit PO 0800,1200 tvvncaukxpfh-Ht-hvcx-minerals 1 EACH tablet 1 ea PO DAILY [...] CC: Dr. Bassam Johnson MD ~ Signed [facility] Work Phone: 1(167) 491-485306-22-2023 History and physical note Author Dr. Chan [facility] December 22, 2022 7:12am Note Date/Time December 22, 2022 7:08 am [facility] Medical Records Department [address] [place] [address] H&P Exam - Surgical 12/22/22 0705 MR#: [id number] Acct: [id number] Name: ABY TELLES Rep #:[id number] : 1950 72 From: Loli Chan MD PCP: Dr. Bassam Johnson MD Status:REG S [place] Location: [place] [address] HPI - General General Date of Service: [...] may be time to have it repaired. [facility] Medical History (Updated 12/14/22 @ 14:29 by [...] PRN Anxiety 01/24/17 [History Last Taken 12/22/22] wwmjirwiflws-Ig-hjzs-minerals 1 ea PO DAILY supplement 01/24/17 [History [...] DAILY 12/14/22 [History Last Taken Unknown] peg 319-oodowirhcwur-gsiurzve 1 %-0.2 %-0.2 % eye drops (Dry [...] questions were answered. Loli Chan M.D. Pager: [phone] [facility] [address] [place] [address], [address] [place] [address] Office: [phone] 12/22/2212 <Electronically signed by Loli Chan MD> Cosigner Signature (if applicable): CC: Dr. Bassam Johnson MD; Dr. Loli Chan MD~ Signed [facility] Work Phone: 1(126) 711-876806-22-2023 [facility] Dis[facility] summary Author Deon Hackett [facility] Note Date/Time January 22, 2025 2:19 am [facility] Medical Records Department [address] [place] [address] Emergency Department Summary 01/22/25 MR#: [id number] Acct: [id number] Name: ABY TELLES Rep #:[id number] : 1950 74 From: Deon Hackett DO PCP: Dr. Bassam Johnson MD Status:ADM I NO Location: CT3 [id number] HPI History of Present Illness Chief Complaint: [...] secondary to this comes in for evaluation. [facility] Medical History Wears partial dentures Wears [...] PRN PRN Anxiety 01/24/17 01/21/25 20:30 History totyitkotvjy-Dz-pfgi-minerals 1 ea PO DAILY supplement 01/24/17 05/28/24 [...] mg PO DAILY 05/09/22 11/01/23 History peg 117-albgzfmgklhr-nuchpyph 1 1 drp EACH EYE BID PRN [...] % (Auto) 66.7 Lymph % (Auto) 22.6 [place] % (Auto) 7.0 Eos % (Auto) 2.4 [...] No acute findings otherwise noted. 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 Call [facility] ([phone]) or report to the closest Emergency Room. Call 911 if necessary. 01/22/25218 <Electronically signed by Deon Hackett DO> Cosigner Signature (if applicable): CC: Dr. Bassam Johnson MD ~ Signed [facility] Work Phone: evaluation note* Diagnosis Onset Date Resolution Status Atypical mole acute [id number] acute Left ovarian cyst acute Umbilical hernia acute Umbilical hernia acute Abdominal pain, epigastric a cute Hernia, umbilical acute Partial obstruction of small intestine acute [facility] Work Phone: evaluation note* Diagnosis Onset Date Resolution Status Umbilical hernia acute Hernia, umbilical acute Abdominal pain, epigastric r esolved Partial obstruction of small intestine resolved Urinary tract infection none active [facility] Work Phone: evaluation note* Diagnosis Onset Date Resolution Status Encounter for routine gynecological examination noneactive [facility] Work Phone: evaluation note* Diagnosis Onset Date Resolution Status Encounter for routine gynecological examination noneactive Umbilical hernia acute [facility] Work Phone: evaluation note* Diagnosis Onset Date Resolution Status History of umbilical hernia repair 2022 acute [facility] Work Phone: evaluation noteNo assessment information available [facility] Work Phone: evaluation note* Diagnosis Onset Date Resolution Status Cystitis acute [id number] acute Encounter for routine gynecological examination noneactive [facility] Work Phone: Evaluation note* Diagnosis Onset Date Resolution Status Admit Date Encounter for routine gynecological examination noneactive November 182024 2:10pm 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 08/26 est annual, last seen 08/25/20 Umbilical Hernia SCREENING OVERIAN CYST SMALL BOWEL OBSTRUCTION SMALL BOWEL OBSTRUCTION Reason for Visit Atypical mole [id number] Left ovarian cyst Umbilical hernia Umbilical hernia Abdominal pain, epigastric Hernia, umbilical Partial obstruction of small intestine Chief Complaint possible prolapse or infection/ annual sched. 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) GENERAL ILLNESS Reason for Visit Encounter for routin e gynecological examination Chief Complaint SCREENING 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) GENERAL ILLNESS LEFT OVARIAN CYST Reason for Visit Encounter for routin e gynecological examination Chief Complaint SCREENING 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) GENERAL ILLNESS LEFT OVARIAN CYST BACK PAIN NAVAL HERNIA UMB HERNIA REP POSS MESH UMB HERNIA REP POSS MESH Reason for Visit Encounter for routin e gynecological examination Umbilical hernia Chief Complaint 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) GENERAL ILLNESS LEFT OVARIAN CYST BACK PAIN NAVAL HERNIA UMB HERNIA REP POSS MESH UMB HERNIA REP POSS MESH DYSURIA AND FREQUENCY Reason for Visit Encounter for routin e gynecological examination Umbilical hernia Chief Complaint DYSURIA AND FREQUENC Y HERNIA 12/22 GENERAL ILLNESS Reason for Visit History of umbilical hernia repair Chief Complaint FALL GENERAL ILLNESS Chief Complaint SCREENING Chief Complaint SCREENING 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) OVARIAN CYST LEFT SIDE Reason for Visit Cystitis [id number] Encounter for routine gynecological examination Chief Complaint Admit Date SCREENING September 16, 2024 12: 53pm Reason for Visit Admit Date Encounter for screening for malignant ne oplasm of colon May 29, 2024 6:12am Chief Complaint Admit Date SCREENING September 16, 2024 12: 53pm 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 18, 2024 2:10p m Reason for Visit Admit Date Encounter for routine gynecological exam ination November 18, 2024 2:10pm Chief Complaint Admit Date 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 18, 2024 2:10p m PARTIAL SMALL BOWEL OBSTRUCTION December 2:05am Family History Relationship Condition Age at Onset Recorded Date/T saad Not Specified Diabetes mellitus Unknown Cardiac disease Unknown Hypertension Unknown Advance Directives Advance Directive Response Recorded Date/ Time Living Will Yes November 22, 2021 1 0:44pm Power of Press Catcher Yes November 22, 2021 10:44pm Advance Directive Response Recorded Date/ Time Living Will Yes November 23, 2021 2 :15am Power of Press Catcher Yes November 23, 2021 2:15am Advance Directive Response Recorded Date/ Time Name of Medical Power of Press Catcher Ruthy Telles November 23, 2021 2:15am Living Will Yes November 23, 2021 2 :15am Power of Press Catcher Yes November 23, 2021 2:15am Advance Directive Response Recorded Date/ Time Name of Medical Power of Press Catcher HAIDER TELLES September 22, 2022 11:21am Living Will Yes September 22, 2022 11:21am Power of Press Catcher Yes September 22 11:21am Advance Directive Response Recorded Date/ Time Name of Medical Power of Press Catcher HAIDER TELLES September 22, 2022 11:21am Name of Medical Power of Press Catcher HAIDER November 16, 2022 7:42pm Name of Medical Power of Press Catcher RUTHY ZENG December 14, 2022 2:29pm Living Will Yes December 14, 2022 2:29pm Power of Press Catcher Yes December 14 2:29pm Advance Directive Response Recorded Date/ Time Name of Medical Power of Press Catcher RUTHY TELLES- April 25, 2023 4:53pm Living Will Yes April 25 4:53pm Power of Press Catcher Yes April 25, 2023 4:53pm Advance Directive Response Recorded Date/ Time Name of Medical Power of Press Catcher RUTHY TELLES- April 25, 2023 3:53pm Living Will Yes April 25 3:53pm Power of Press Catcher Yes April 25, 2023 3:53pm Advance Directive Response Recorded Date/ Time Living Will Yes April 25 4:53pm Power of Press Catcher Yes April 25, 2023 4:53pm Advance Directive Response Recorded Date/ Time Living Will Yes May 27, 2 024 10:41am Do you have a Healthcare Pow er of Press Catcher? Yes May 27, 2024 10:41am Name of Medical Power of Press Catcher JASE MENDEZ May 27, 2024 10:41am Advance Directive Response Recorded Date/ Time Do you have a Healthcare Power of Press Catcher? Yes January 21, 2025 11:33pm Summary Purpose [...] Inactive Member Role Status Dates Dr. Bassam Jhonson DO Primary Care Provider, Referring Provider Active [...] section and content) DATE CREATED AUTHOR 11/19/2024 [facility] FOR RECORDS PERTAINING TO PATIENTS WHO ARE [...] BE BASED ON THE PRIMARY CLINICAL RECORDS. [employer] provides no warranty or guarantee of the accuracy or completeness of information in this document.
[2025-01-22 05:51] LABS: Hematocrit 32.7 % (37-47); Hemoglobin 11.4 g/dL (12.0-15.0); Mean Corp Hgb Conc 34.9 g/dL (32-36); Mean Corpuscular Volume 92.9 fL (81-99); Mean Platelet Vol. 9.1 fl (6.2-12.0); Platelet Count 346 K/mm3 (150-450); RBC Distribution Width CV 13.4 % (11.6-14.6); RBC Distribution Width SD 45.6 fl (35.1-43.9); Red Blood Count 3.52 M/mm3 (4.2-5.4); White Blood Count 11.3 K/mm3 (4.4-11.0)
[2025-01-22 06:13] LABS: Anion Gap 13 (5-15); BUN 22 mg/dL (4-19); BUN/Creat Ratio 15.5 RATIO (10-20); Calcium,Total 8.8 mg/dL (7.6-11.0); Carbon Dioxide 20.2 mmol/L (21.0-32.0); Chloride 97 mmol/L (98-108); Estimated Creatinine Clearance 29.92 ml/min (50-250); Glucose 81 mg/dL (70-99); Potassium 4.2 mmol/L (3.3-5.1)
--- NOTE | 2025-01-22 07:46 | HP.PCM.SX_ITS ---
HPI - General General Date of Admission: 01/22/25 HPI Narrative KATHIE PALUMBO, is a 74 F who presents with abdominal pain. The patient presented with abdominal pain that started yesterday. She reports she had 3 bowel movements yesterday. She started having severe pain and came to the hospital. She reports that her pain is decreased since admission but is still present. She has never had a bowel obstruction in the past. Her only surgical history is an umbilical hernia repair with mesh. FORMERLY [facility], 1928–1983 Medical History Wears partial dentures Wears glasses Post-menopausal Anxiety Arthritis Dietary restriction Gastric reflux Non-smoker History of edema H/O vaginal delivery Cystitis cataract surgery (~2015) Back pain Neck pain Difficulty balancing Hay fever Seasonal allergies Heart disease Shoulder pain Hypertension Home Medications Medication Instructions Recorded Last Taken Type calcium carbonate 1,200 mg PO DAILY supplement 01/24/17 05/28/24 History cholecalciferol (vitamin D3) 25 2,000 unit PO DAILY nur pplement 01/24/17 05/28/24 History mcg (1,000 unit) capsule cinnamon bark 500 mg capsule 1,000 mg PO 0800,1200 sup plement 01/24/17 05/28/24 History lorazepam 0.5 mg tablet 0.5 - 1 mg PO DAILY PRN PRN Anxiety 01/24/17 01/21/25 20:30 History pqvugmqbowgz-Zn-fsni-minerals 1 ea PO DAILY supplement 01/24/17 05/28/24 History red yeast rice 600 mg capsule 600 mg PO 0800,1200 supp lement 01/24/17 05/28/24 History fluticasone propionate 50 1 spray intranasal DAILY all ergies 08/25/20 11/22/21 History mcg/actuation nasal spray,suspension famotidine 20 mg tablet (Pepcid) 20 mg PO DAILY PRN GE RD 08/12/21 01/21/25 12:00 History ascorbic acid (vitamin C) 1,000 mg 1 g PO DAILY supple ment 08/26/21 05/28/24 History tablet amlodipine 5 mg tablet 5 mg PO DAILY hypertension 1 07/09/21 05/29/24 History lisinopril 10 mg tablet 10 mg PO DAILY 05/09/2205/04 History peg 484-zlkoztsayidl-yggzaybh 1 1 drp EACH EYE BID PRN Dry Eyes 12/14/22 05/28/24 History %-0.2 %-0.2 % eye drops (Dry Eye Relief) acetaminophen 500 mg tablet 1,000 mg PO BID 03/11/24 0 01/21/25 19:10 History (Tylenol Extra Strength) dexamethasone 0.1 % eye 1 drp ophthalmic (eye) BID P RN 03/11/24 Unknown History drops,suspension itching loratadine 10 mg tablet (Claritin) 10 mg PO DAILY 03/2605/28/24 History amlodipine 2.5 mg tablet 2.5 mg PO DAILY 03/31/24 History ferrous sulfate 325 mg (65 mg 325 mg PO DAILY 05/27/24 Unknown History iron) tablet (Iron (ferrous sulfate)) mecobalamin (vitamin B12) 500 mcg 500 mcg PO DAILY Unknown History chewable tablet Allergy/AdvReac Type Severity Reaction Status Date / Time cyclobenzaprine Allergy Mild other Verified 01/21/25 21:46 montelukast (From Singulair) Allergy PT UNSURE Verified 01/21/25 21:46 OF REACTION latex AdvReac irritation Verified 01/21/25 21:46 oxycodone (From Percocet) AdvReac DIZZY,LIGHT Verified 01/21/25 21:46 HEADNESS Family History Other Diabetes Heart disease Hypertension Surgical History History of umbilical hernia repair (~12/2022) Hx of bilateral cataract extraction History of carpal tunnel release of both wrists (~2016) Social History household members: spouse current occupational status: retired Smoking Status: Never smoker alcohol intake: never substance use type: does not use caffeine: Yes what type of physical activity do you participate in: walking frequency: 5-6 times per week seatbelt use: always do you feel safe at home: Yes additional social history: [place]- Vital Signs Vital Signs Vital Signs: 01/21/25 21:42 01/21/25 23:35 01/22/25 01:00 Temperature 97.8 F Temperature Source Oral Pulse Rate 75 60 55 L Respiratory Rate 17 18 18 Blood Pressure 163/62 H 144/72 H 143/56 H Blood Pressure Mean 95 96 85 Blood Pressure Source Blood Pressure Position Blood Pressure Location Pulse Ox 97 100 98 Oxygen Delivery Method Room Air Room Air Room Air 01/22/25 01:56 01/22/25 03:00 01/22/25 03:29 Temperature 98 F 97.4 F L Temperature Source Oral Pulse Rate 61 58 L 60 Respiratory Rate 16 18 17 Blood Pressure 143/63 H 149/69 H 158/76 H Blood Pressure Mean 89 95 103 Blood Pressure Source Monitor Blood Pressure Position Semi-Fowlers Blood Pressure Location Right Arm Pulse Ox 100 100 99 Oxygen Delivery Method Room Air Room Air Weight Weight: 147 lb 0.773 oz Body Mass Index (BMI) 27.8 Physical Exam Const oriented x3 and no apparent distress Resp normal respiratory effort GI soft to palpation Inspection: abdominal distention Palpation: tender Results Lab / Micro Data 01/22/25 05:14 01/22/25 05:14 Labs: Laboratory Results - last 24 hr 01/21/25 22:55: WBC 13.4 H, RBC 3.64 L, Hgb 11.8 L, Hct 33.6 L, MCV 92.3, MCH 32.4 H, MCHC 35.1, RDW Std Deviation 45.1 H, RDW Coeff of Clay 13.3, Plt Count 384, MPV 8.9, Immature Gran % (Auto) 0.400, Neut % (Auto) 66.7, Lymph % (Auto) 22.6, [place] % (Auto) 7.0, Eos % (Auto) 2.4, Baso % (Auto) 0.9, Absolute Neuts (auto) 8.9 H, Absolute Lymphs (auto) 3.02, Nucleated RBC % 0, Sodium 129 L, Potassium 4.2, Chloride 94 L, Carbon Dioxide 21.0, Anion Gap 14, BUN 23 H, C reatinine 1.37 H, Estim Creat Clear Calc 31.10 L, Est GFR (MDRD) Non-Af 40 L, BUN/Creatinine Ratio 16.5, Glucose 112 H, Calcium 9.4, Total Bilirubin 0.18, AST 22, ALT 20, Alkaline Phosphatase 48, Total Protein 7.1, Albumin 4.1, Globulin 3.0, Albumin/Globulin Ratio 1.4, Lipase 62 01/22/25 00:19: Lactic Acid 1.6 01/22/25 05:14: WBC 11.3 H, RBC 3.52 L, Hgb 11.4 L, Hct 32.7 L, MCV 92.9, MCH 32.4 H, MCHC 34.9, RDW Std Deviation 45.6 H, RDW Coeff of [place] 13.4, Plt Count 346, MPV 9.1, Sodium 130 L, Potassium 4.2, Chloride 97 L, Carbon Dioxide 20.2 L, Anion Gap 13, BUN 22 H, Creatinine 1.42 H, Estim Creat Clear Calc 29.92 L, Est GFR (MDRD) Non-Af 39 L, BUN/Creatinine Ratio 15.5, Glucose 81, Calcium 8.8 Imaging Radiology Impression Abdomen/Pelvis CT 01/22/25 23:47 IMPRESSION: Findings suggest a mid abdominal early/partial small bowel obstruction. Consider small bowel follow-through examination for further assessment. No acute findings otherwise noted. [facility] Assessment & Plan Assessment/Plan (1) Partial small bowel obstruction: PLAN: CT scan showed possible partial to early small bowel obstruction. They recommend a small bowel follow-through. I will order that today. Patient is also hyponatremic and dehydrated. Continue IV fluids. Yaya Little MD Pager: [facility] [address] [place] [address], [address] [place] [address] Office:
--- NOTE | 2025-01-22 08:50 | RAD_ITS ---
PROCEDURE: SMALL BOWEL SERIES ONLY 01/22/2025 REASON FOR EXAM: Concern for possible SBO on CT TECHNIQUE: Serial frontal abdominal radiographs following the administration of enteric contrast. COMPARISON: Abdominal CT earlier same day 01/22/2025. FINDINGS: Excreted IV contrast noted within the bilateral renal collecting systems and layering within the bladder in the lower pelvis from recent prior contrast-enhanced abdominal CT. There is free flow of enteric contrast through the stomach and small bowel and with propagation to the distal colon all the way to the rectum on delayed images, with no evidence for obstruction. Redemonstrated mildly prominent loops of small bowel in the left midabdomen, nonspecific. No evidence for free air. No unusual calcific densities. No significant osseous abnormality. RAD/Small Bowel Series Only IMPRESSION: Enteric contrast freely propagates through the gastrointestinal tract and into the distal colon on serial imaging, with no evidence of obstruction. Reading Location: [id number]
--- NOTE | 2025-01-22 16:32 | CASEMGMT ---
FERNANDO FAY NOTE: Strata: 1 6 click: 24 No therapy ordered. No CM consult ordered. Pt has a PCP listed in [facility], Dr Bassam Johnson. Medical record reviewed and patient evaluated for identification of discharge planning needs. Patient does not currently demonstrate a need for discharge planning by RN [facility]. CM will continue to be available for any discharge needs that may arise, and intervene as indicated. Jacey JONES RN, CM
--- NOTE | 2025-01-22 22:29 | NURSING ---
Pt tolerated her diet. No complaints at this time
--- NOTE | 2025-01-22 23:47 | CT_ITS ---
PROCEDURE: ABDOMEN/PELVIS W IV CONT ONLY 01/22/2025 REASON FOR EXAM: ABD PAIN / ? INCARCERATED UMBILICAL HERNIA TECHNIQUE: ABDOMEN/PELVIS W IV CONT ONLY Coronal and Sagittal reconstruction series were provided. CONTRAST: Isovue 370 VOLUME: 75 mL One or more dose reduction techniques were used (e.g., Automated exposure control, adjustment of the mA and/or kV according to patient size, use of iterative reconstruction technique. RADIATION DOSE SUMMARY: CTDlvol: 19 mGy DLP: 821 mGycm COMPARISON: 11/23/2021 FINDINGS: Under aerated lung bases. Normal heart size. Diffuse hepatic steatosis. Cholelithiasis. Unremarkable pancreas, spleen, adrenal glands. Bilateral simple renal cysts. No hydronephrosis or ureteral stones. Normal bladder. Normal uterus and right ovary. There is a 3.5 cm left ovarian cyst, stable, favoring benign etiology. No retroperitoneal or pelvic adenopathy. No free air. Nondistended stomach and proximal bowel. There are dilated mid abdominal small bowel loops. Nondistended distal small bowel. Normal appendix. Normal caliber large bowel. A few diverticula. No acute large bowel lumbar spine degeneration. No acute abdominal wall findings. CT/Abdomen/Pelvis W IV Cont ONLY IMPRESSION: Findings suggest a mid abdominal early/partial small bowel obstruction. Consid er small bowel follow-through examination for further assessment. No acute findings otherwise noted. Reading Location: [place] [address]
--- NOTE | 2025-01-23 01:40 | NURSING ---
Got called into pt room. Pt tired of this iv. i wanted it. Informed her she was dehydrated when she came in. she said i have several of those bags. Encourage pt to drink water. iv removed
[2025-01-23 01:59] VITALS: BP 148/53; PULSE 67; RESP 17; TEMP 36.9; O2SAT 99
--- NOTE | 2025-01-23 07:00 | PCM.PN.SRG ---
Subjective Subjective Patient is doing well with no issues. She reports that she had 7 bowel movements yesterday and she is having no abdominal pain or nausea. She tolerated some regular food for dinner last night. Objective Data Objective Data Vital Signs: Vital Signs Temp Pulse Resp BP Pulse Ox O2 Del Method 98.4 F 67 17 148/53 H 99 Room Air 01/23/25 01:59 01/23/25 01:59 01/23/25 01:59 01/23/25 01:59 01/23/25 01:59 01/23/25 01:59 Oxygen Delivery Method Room Air Weight: 147 lb 0.773 oz Body Mass Index (BMI) 27.8 Intake & Output: Intake and Output for Last 24 Hours 01/21/25 01/22/25 01/23/25 23:59 23:59 23:59 Intake Total 1451.67 / 1451.67 971.67 / 971.67 Output Total 50 / 50 Balance 1401.67 / 1401.67 971.67 / 971.67 Lab / Micro Data 01/22/25 05:14 01/22/25 05:14 Radiography Diagnostic Testing: Radiology Impression Small Bowel X-Ray 01/22/25 08:50 IMPRESSION: Enteric contrast freely propagates through the gastrointestinal tract and into the distal colon on serial imaging, with no evidence of obstruction. Reading Location: [facility] Physical Exam Const oriented x3 and no apparent distress Resp normal respiratory effort GI normal to inspection, nondistended, normoactive bowel sounds Assessment & Plan Assessment/Plan (1) Partial small bowel obstruction: PLAN: Patient had small bowel follow-through yesterday that showed progression of the contrast. She was advanced to a regular diet and tolerated this. She had several bowel movements. I will make sure she tolerates breakfast and then she was to be discharged home Yaya Little MD Pager: [facility] [address] [place] [address], [address] [place] [address] Office:
--- NOTE | 2025-01-23 07:01 | PCM.DC.SUM ---
Providers Date of Admission: 01/22/25 Primary Care Physician: Dr. Bassam Johnson DO Reason For Visit: PARTIAL SMALL BOWEL OBSTRUCTION Diagnosis Discharge Diagnosis (1) Partial small bowel obstruction: Status: Acute Code(s): K56.600 - Partial intestinal obstruction, unspecified as to cause Plan: Patient had small bowel follow-through yesterday that showed progression of the contrast. She was advanced to a regular diet and tolerated this. She had several bowel movements. I will make sure she tolerates breakfast and then she was to be discharged home Yaya Little MD Pager: [facility] [address] [place] [address] [address], [address] [place] [address] Office: Medications at Discharge Home Medications calcium carbonate 1,200 mg PO DAILY supplement 01/24/17 cholecalciferol (vitamin D3) 25 mcg (1,000 unit) capsule 2,000 unit PO DAILY supplement 01/24/17 cinnamon bark 500 mg capsule 1,000 mg PO 0800,1200 supplement 01/24/17 lorazepam 0.5 mg tablet 0.5 - 1 mg PO DAILY PRN PRN Anxiety 01/24/17 csihsktctork-Hu-psei-minerals 1 ea PO DAILY supplement 01/24/17 red yeast rice 600 mg capsule 600 mg PO 0800,1200 supplement 01/24/17 fluticasone propionate 50 mcg/actuation nasal spray,suspension 1 spray intranasal DAILY allergies 08/25/20 famotidine 20 mg tablet (Pepcid) 20 mg PO DAILY PRN GERD 08/12/21 ascorbic acid (vitamin C) 1,000 mg tablet 1 g PO DAILY supplement 08/26/21 amlodipine 5 mg tablet 5 mg PO DAILY hypertension 05/09/22 lisinopril 10 mg tablet 10 mg PO DAILY 05/09/22 peg [id number]-bqoajwfs 1 %-0.2 %-0.2 % eye drops (Dry Eye Relief) 1 drp EACH EYE BID PRN Dry Eyes 12/14/22 acetaminophen 500 mg tablet (Tylenol Extra Strength) 1,000 mg PO BID 03/11/24 dexamethasone 0.1 % eye drops,suspension 1 drp ophthalmic (eye) BID PRN itching 03/11/24 loratadine 10 mg tablet (Claritin) 10 mg PO DAILY 03/11/24 amlodipine 2.5 mg tablet 2.5 mg PO DAILY 03/31/24 ferrous sulfate 325 mg (65 mg iron) tablet (Iron (ferrous sulfate)) 325 mg PO DAILY 05/27/24 mecobalamin (vitamin B12) 500 mcg chewable tablet 500 mcg PO DAILY 11/18/24 Hospital Course Operations None Procedures None Summary of Care Provided Hospital Course: Patient was admitted with an early to partial small bowel obstruction. The patient had small bowel follow-through that showed really passage of the contrast and the patient had several bowel movements. She was advanced to regular diet and once tolerated that she was discharged home Weight / BMI Weight Weight: 147 lb 0.773 oz Body Mass Index (BMI) 27.8 ABG / Lab / Microbiology Data 01/22/25 05:14 01/22/25 05:14 Radiography Diagnostic Testing: Radiology Impression Small Bowel X-Ray 01/22/25 08:50 IMPRESSION: Enteric contrast freely propagates through the gastrointestinal tract and into the distal colon on serial imaging, with no evidence of obstruction. Reading Location: [facility] D/C Instructions Discharge Activity: Return to Normal Activity May resume sexual activity in: No Restrictions Call your doctor if your incision/area has: Increased Pain/ Swelling Call your doctor if you observe: Inability to have a bowel movement DC O2, CPAP, BIPAP Needs Home O2 Discharge instructions: No Please Follow Up With: Yaya Little MD When: as needed Meaningful Use Info Meaningful Use Meaningful Use Diagnoses (Choose all that apply): None applicable Discharge Plan Admission Admit Date/Time: 01/22/25 03:41 Attending Provider: Yaya Little Primary Care Provider: Bassam Johnson Discharge Orders/Prescriptions Prescriptions: No Action fluticasone propionate 50 mcg/actuation spray,suspension 1 spray INTRANASAL DAILY Rx Instructions: administer into each nostril ascorbic acid (vitamin C) 1,000 mg tablet 1 g PO DAILY famotidine [Pepcid] 20 mg tablet 20 mg PO DAILY PRN (Reason: GERD) lisinopril 10 mg tablet 10 mg PO DAILY acetaminophen [Tylenol Extra Strength] 500 mg tablet 1,000 mg PO BID Rx Instructions: AM and HS dexamethasone 0.1 % drops,suspension 1 drp ophthalmic (eye) BID PRN (Reason: itching) Rx Instructions: Both eyes mecobalamin (vitamin B12) 500 mcg tablet,chewable 500 mcg PO DAILY calcium carbonate 600 MG tablet 1,200 mg PO DAILY lorazepam 0.5 MG tablet 0.5 - 1 mg PO DAILY PRN PRN (Reason: Anxiety) cholecalciferol (vitamin D3) 1,000 UNIT capsule 2,000 unit PO DAILY pxiiyomvnmfy-Sa-conq-minerals 1 EACH tablet 1 ea PO DAILY cinnamon bark 500 MG capsule 1,000 mg PO 0800,1200 red yeast rice 600 MG capsule 600 mg PO 0800,1200 amlodipine 5 mg tablet 5 mg PO DAILY Dry Eye Relief 1-0.2-0.2 % Drops 1 drp EACH EYE BID PRN (Reason: Dry Eyes) loratadine [Claritin] 10 mg tablet 10 mg PO DAILY ferrous sulfate [Iron (ferrous sulfate)] 325 mg (65 mg iron) tablet 325 mg PO DAILY amlodipine 2.5 mg tablet 2.5 mg PO DAILY Referrals / Follow Up: Bassam Johnson DO [Primary Care Provider] - Disposition Disposition (needs filled in before D/C Order can be placed): Home, Self Care
[2025-01-23 08:14] VITALS: BP 149/100; PULSE 66; RESP 16; TEMP 36.4; O2SAT 99
--- NOTE | 2025-01-23 09:19 | CASEMGMT ---
Dx:partial small bowel obstruction LACE:2 6-Clicks:24 Medical record reviewed and patient evaluated for identification of discharge planning needs. Based on this review, at this time criteria are not present to indicate a need for discharge planning. Will remain available to assist with discharge planning needs as identified or requested. Pt has a dc order in at this time.
== END 2025-01-23 10:40 | disposition home or self-care (01) | DRG 389 ==
LOC: ED 01-22 01:22 → MS3 01-22 02:27
PROVIDERS: Admitting Provider Surgery; Emergency Provider Emergency Medicine; PCP Family Medicine; Visit Provider Surgery
DX: K56.600 Partial intestinal obstruction, unspecified as to cause (principal); E87.1 Hypo-osmolality and hyponatremia; I10 Essential (primary) hypertension; K21.9 Gastro-esophageal reflux disease without esophagitis
CPT/HCPCS: 36415; 74177; 74250; 80048; 80053; 83605; 83690; 85025; 85027; 93005; 99284; Q9967; A4216

== ENCOUNTER 2025-02-20 14:38 | Emergency (ER) | payer MEDICARE, OTHER, SELFPAY ==
[2025-02-20 14:38] VITALS: BP 138/51; PULSE 65; RESP 14; TEMP 36.1; O2SAT 98; BMI 27.9
--- NOTE | 2025-02-20 14:53 | EDS_ITS ---
HPI <PEG Grider - Last Filed: 02/20/25 17:18> History of Present Illness Chief Complaint: Complaint Narrative Narrative: 74-year-old female states over the last 2 days she has had dysuria and frequency. She states the area just feels uncomfortable and she is worried maybe she has a UTI or a yeast infection. No discharge. No fever, chills, nausea or vomiting or abdominal or flank pain. She also has a spot on her left oral mucosa that she was concerned this could be thrush. No recent antibiotic use. No recent UTIs. She follows with Dr. Toussaint for interstitial cystitis and gets monthly bladder stimulator treatments in the office. She also follows with a vault clerk Dr. Juan Javier for yearly checkups. [facility] <PEG Grider - Last Filed: 02/20/25 17:18> [facility] Medical History (Updated 02/20/25 @ 17:12 by PEG Grider) Urgency of micturition Nocturia Wears partial dentures Wears glasses Post-menopausal Anxiety Arthritis Dietary restriction Gastric reflux Non-smoker History of edema H/O vaginal delivery Cystitis cataract surgery (~2016) Back pain Neck pain Difficulty balancing Hay fever Seasonal allergies Heart disease Shoulder pain Hypertension Home Medications ?Medication ?Instructions ?Recorded ?Last Taken ?Type calcium carbonate 1,200 mg PO DAILY supplement 01/24/17 05/28/24 History cholecalciferol (vitamin D3) 25 2,000 unit PO DAILY nur pplement 01/24/17 05/28/24 History mcg (1,000 unit) capsule cinnamon bark 500 mg capsule 1,000 mg PO 0800,1200 sup plement 01/24/17 05/28/24 History lorazepam 0.5 mg tablet 0.5 - 1 mg PO DAILY PRN PRN Anxiety 01/24/17 01/21/25 20:30 History dxaplowvtgxi-Tc-ybmw-minerals 1 ea PO DAILY supplement 01/24/17 05/28/24 History red yeast rice 600 mg capsule 600 mg PO 0800,1200 supp lement 01/24/17 05/28/24 History fluticasone propionate 50 1 spray intranasal DAILY all ergies 08/25/20 11/22/21 History mcg/actuation nasal spray,suspension famotidine 20 mg tablet (Pepcid) 20 mg PO DAILY PRN GE RD 08/12/21 01/21/25 12:00 History ascorbic acid (vitamin C) 1,000 mg 1 g PO DAILY supple ment 08/26/21 05/28/24 History tablet amlodipine 5 mg tablet 5 mg PO DAILY hypertension 1 07/09/21 05/29/24 History lisinopril 10 mg tablet 10 mg PO DAILY 05/09/22 11/01/23 History peg 525-[id number]-yovlijuy 1 1 drp EACH EYE BID PRN Dry Eyes 12/14/22 05/28/24 History %-0.2 %-0.2 % eye drops (Dry Eye Relief) acetaminophen 500 mg tablet 1,000 mg PO BID 03/11/24 0 01/21/25 19:10 History (Tylenol Extra Strength) dexamethasone 0.1 % eye 1 drp ophthalmic (eye) BID P RN 03/11/24 Unknown History drops,suspension itching loratadine 10 mg tablet (Claritin) 10 mg PO DAILY 03/2605/28/24 History amlodipine 2.5 mg tablet 2.5 mg PO DAILY 03/31/24 History ferrous sulfate 325 mg (65 mg 325 mg PO DAILY 05/27/24 Unknown History iron) tablet (Iron (ferrous sulfate)) mecobalamin (vitamin B12) 500 mcg 500 mcg PO DAILY Unknown History chewable tablet cephalexin 500 mg capsule 500 mg PO Q12 #14 CAPSULES 0 02/20/25 Unknown Rx Allergy/AdvReac Type Severity Reaction Status Date / Time cyclobenzaprine Allergy Mild other Verified 02/20/25 14:40 montelukast (From Singulair) Allergy PT UNSURE Verified 02/20/25 14:40 OF REACTION latex AdvReac irritation Verified 02/20/25 14:40 oxycodone (From Percocet) AdvReac DIZZY,LIGHT Verified 02/20/25 14:40 HEADNESS Family History Other Diabetes Heart disease Hypertension Surgical History History of umbilical hernia repair (~12/2022) Hx of bilateral cataract extraction History of carpal tunnel release of both wrists (~2017) Social History household members: spouse current occupational status: retired Smoking Status: Never smoker alcohol intake: never substance use type: does not use caffeine: Yes what type of physical activity do you participate in: walking frequency: 5-6 times per week seatbelt use: always do you feel safe at home: Yes additional social history: [place]- ROS <PEG Grider - Last Filed: 02/20/25 17:18> ROS ED ROS Narrative Constitutional: Negative for fever, chills, malaise. GI: Negative for abdominal pain, nausea, vomiting. : Positive for dysuria, frequency. EXAM <PEG Grider - Last Filed: 02/20/25 17:18> Physical Exam Narrative Exam Narrative: CONST: Patient sitting in no acute distress. EYES: Normal inspection. NECK: Normal inspection. RESP: No respiratory distress, CTAB. CVS: Regular rate and rhythm, no murmur, no gallop. ABD: Soft and nontender, no guarding or rebound, nondistended : Normal external genitalia, no redness, lesions, or discharge noted. SKIN: Color normal, no rash, warm, dry, intact. EXTREMITIES: Normal appearance, no pedal edema. NEURO: Alert and answering questions appropriately. PSYCH: Normal affect. Const Vital Signs: 02/20/25 14:38 02/20/25 16:38 02/20/25 17:35 Temperature 97 F L 98.8 F Temperature Source Temporal Pulse Rate 65 62 64 Respiratory Rate 14 18 Blood Pressure 138/51 H 140/93 H 118/78 Blood Pressure Mean 80 108 91 Pulse Ox 98 97 99 Oxygen Delivery Method Room Air Room Air <Dr. Josué Sevilla MD - Last Filed: 02/20/25 21:28> Physical Exam Const Vital Signs: 02/20/25 14:38 02/20/25 16:38 02/20/25 17:35 Temperature 97 F L 98.8 F Temperature Source Temporal Pulse Rate 65 62 64 Respiratory Rate 14 18 Blood Pressure 138/51 H 140/93 H 118/78 Blood Pressure Mean 80 108 91 Pulse Ox 98 97 99 Oxygen Delivery Method Room Air Room Air MDM <PEG Grider - Last Filed: 02/20/25 17:18> MDM MDM Narrative Medical decision making narrative: Differential includes but not limited to UTI, STI, vaginitis 74-year-old female presents with dysuria and frequency over the last few days. She appears well and nontoxic. Vital stable. Abdomen soft, nontender. No flank tenderness. UA is consistent with UTI. She has no signs or symptoms of kidney stone or pyelonephritis so does not require blood work or imaging. I prescribed Keflex with first dose given here. If symptoms are improving she should follow-up with her urologist. She was discharged in stable condition. History & Record Review Discussion w/independent historian: Patient Additional record(s) reviewed:: Prior ED visit and Prior labs Lab Data Attestation: I reviewed the patient's lab results. Labs: Laboratory Results - last 24 hr 02/20/25 15:10 Urine Color Yellow Urine Clarity Cloudy Urine pH 6.0 Ur Specific [place] 1.010 Urine Protein 30 H Urine Glucose (UA) Normal Urine Ketones Negative Urine Occult Blood Negative Urine Nitrite Positive H Urine Bilirubin Negative Urine Urobilinogen Normal Ur Leukocyte Esterase 100 H Urine RBC 0-5 SEEN Urine WBC 5-10 SEEN Ur Squamous Epith Cells 0-5 SEEN Urine Bacteria 3+ Urine Mucus 0 SEEN <Dr. Josué Sevilla MD - Last Filed: 02/20/25 21:28> [facility] Lab Data Labs: Laboratory Results - last 24 hr 02/20/25 15:10 Urine Color Yellow Urine Clarity Cloudy Urine pH 6.0 Ur Specific [place] 1.010 Urine Protein 30 H Urine Glucose (UA) Normal Urine Ketones Negative Urine Occult Blood Negative Urine Nitrite Positive H Urine Bilirubin Negative Urine Urobilinogen Normal Ur Leukocyte Esterase 100 H Urine RBC 0-5 SEEN Urine WBC 5-10 SEEN Ur Squamous Epith Cells 0-5 SEEN Urine Bacteria 3+ Urine Mucus 0 SEEN Treatment and Re-Evaluation Comments:: I have personally performed a face to face assessment of the patient and have reviewed the DANIEL Note. I performed a substantive portion of the visit including all aspects of the following. My moss findings include: History is 2 days of dysuria in addition to her chronic interstitial cystitis symptoms. No significant abdominal pain, back pain, fevers, chills, nausea, vomiting Exam is well-appearing no distress abdomen soft nontender. Medical Decison Making urinalysis consistent with infection, sent for culture and will treat with antibiotics close a patient follow-up advised. Other additions or changes: [None] Discharge Plan Triage Chief Complaint: Complaint ED Midlevel Provider: Jocelin Mireles ED Provider: Jousé Sevilla Dx/Rx/DC Orders Clinical Impression: Acute UTI Instructions: UTIs Prescriptions: New cephalexin 500 mg capsule 500 mg PO Q12 Qty: 14 0RF No Action fluticasone propionate 50 mcg/actuation spray,suspension 1 spray INTRANASAL DAILY Rx Instructions: administer into each nostril ascorbic acid (vitamin C) 1,000 mg tablet 1 g PO DAILY famotidine [Pepcid] 20 mg tablet 20 mg PO DAILY PRN (Reason: GERD) lisinopril 10 mg tablet 10 mg PO DAILY acetaminophen [Tylenol Extra Strength] 500 mg tablet 1,000 mg PO BID Rx Instructions: AM and HS dexamethasone 0.1 % drops,suspension 1 drp ophthalmic (eye) BID PRN (Reason: itching) Rx Instructions: Both eyes mecobalamin (vitamin B12) 500 mcg tablet,chewable 500 mcg PO DAILY calcium carbonate 600 MG tablet 1,200 mg PO DAILY lorazepam 0.5 MG tablet 0.5 - 1 mg PO DAILY PRN PRN (Reason: Anxiety) cholecalciferol (vitamin D3) 1,000 UNIT capsule 2,000 unit PO DAILY cuqlrtgtzauj-Xa-tgqw-minerals 1 EACH tablet 1 ea PO DAILY cinnamon bark 500 MG capsule 1,000 mg PO 0800,1200 red yeast rice 600 MG capsule 600 mg PO 0800,1200 amlodipine 5 mg tablet 5 mg PO DAILY Dry Eye Relief 1-0.2-0.2 % Drops 1 drp EACH EYE BID PRN (Reason: Dry Eyes) loratadine [Claritin] 10 mg tablet 10 mg PO DAILY ferrous sulfate [Iron (ferrous sulfate)] 325 mg (65 mg iron) tablet 325 mg PO DAILY amlodipine 2.5 mg tablet 2.5 mg PO DAILY Primary Care Provider: Bassam Johnson Referrals: Bassam Johnson DO [Primary Care Provider] - Activity Restrictions/Additional Instructions: Take all the antibiotics and follow-up with Dr. Toussaint if needed. Print Language: Citizen Of [place] Disposition Disposition: Home, Self Care Discharge Date/Time: 02/20/25 17:36
[2025-02-20 15:31] LABS: Mucous, Urine 0 SEEN /hpf (<or=2+)
[2025-02-20 16:22] LABS: Color, Urine Yellow (Yellow); Glucose, Dipstick Normal (Normal); Ketone-Dipstick Negative (Negative); Leukocyte Esterase-Dipstick 100 /ul (Negative); Nitrite-Dipstick Positive (Negative); Occult Blood-Urine Negative /ul (Negative); Protein-Dipstick 30 mg/dl (Negative); Specific Gravity, Urine 1.010 (1.002-1.030); Urine Bilirubin Dipstick Negative (Negative)
[2025-02-20 16:38] VITALS: BP 140/93; PULSE 62; O2SAT 97
--- NOTE | 2025-02-20 17:09 | ED.RN ---
lab called about delay in urine results. Spoke with Angelia. Reply was we are getting ready to read that.
[2025-02-20 17:14] LABS: Red Blood Cells-Urine 0-5 SEEN /hpf (0-5); Squamous Epithelial Cells - UA 0-5 SEEN /hpf (5-10)
[2025-02-20 17:35] VITALS: BP 118/78; PULSE 64; RESP 18; TEMP 37.1; O2SAT 99
== END 2025-02-20 17:36 | disposition home or self-care (01) ==
PROVIDERS: Physician Assistant; Emergency Provider Emergency Medicine; PCP Family Medicine; Visit Provider Emergency Medicine
DX: N30.10 Interstitial cystitis (chronic) without hematuria (principal); K21.9 Gastro-esophageal reflux disease without esophagitis; I10 Essential (primary) hypertension; B96.1 Klebsiella pneumoniae [K. pneumoniae] as the cause of diseases classified elsewhere
CPT/HCPCS: 81001; 87077; 87086; 87088; 87186; 99282